=== PATIENT | male | born 1965 | race Caucasian/White ===

== ENCOUNTER 2024-01-10 01:55 | Outpatient (REF) | payer MEDICARE, SELFPAY | END 2024-01-10 01:56 | disposition home or self-care (01) | LOC: LAB 01:55 | PROVIDERS: PCP Family Medicine | DX: Z51.81 Encounter for therapeutic drug level monitoring (principal); Z79.01 Long term (current) use of anticoagulants ==

== ENCOUNTER 2024-01-10 02:55 | Outpatient (REF) | payer MEDICARE, SELFPAY ==
[2024-01-10 09:23] LABS: Anion Gap 6.9; BUN Creatinine Ratio 18.3; Calcium 8.2 mg/dL (8.5-10.1); Carbon Dioxide 37.2 mmol/L (21.0-32.0); Chloride 102 mmol/L (98-107); Estimated GFR (African America >60 (>=60); Estimated GFR (Non-African Ame >60 (>=60); Glucose 79 mg/dL (74-106); Potassium 4.1 mmol/L (3.5-5.1); Sodium 142 mmol/L (136-145)
[2024-01-10 10:17] LABS: Prothrombin Time 14.6 sec (9.0-11.6)
[2024-01-10 10:24] LABS: Basophils Absolute Auto 0.1 10^3/uL (0.0-0.1); Basophils Percent Auto 1.1 % (0.2-2.0); Eosinophils Absolute Auto 0.5 10^3/uL (0.0-0.7); Eosinophils Percent Auto 5.5 % (0.9-7.0); Hematocrit 36.5 % (42.0-54.0); Hemoglobin 11.1 g/dL (14.0-18.0); Immature Granulocytes Pct Auto 1.1 % (0.0-0.5); Lymphocytes Absolute Auto 0.8 10^3/uL (1.2-3.8); Lymphocytes Percent Auto 9.5 % (20.5-60.0); Mean Corpuscular HGB Conc 30.4 g/dL (29.9-35.2); Mean Corpuscular Hemoglobin 30.7 pg (25.9-34.0); Mean Corpuscular Volume 100.8 fL (80.0-94.0); Mean Platelet Volume 9.9 fL (9.5-13.5); Monocytes Absolute Auto 0.9 10^3/uL (0.3-0.8); Monocytes Percent Auto 9.9 % (1.7-12.0); Neutrophils Absolute Auto 6.3 10^3/uL (1.4-6.5); Neutrophils Percent Auto 72.9 % (43.0-75.0); Platelet Count 322 10^3/uL (150-450); Red Blood Count 3.62 10^6/uL (4.70-6.10); White Blood Count 8.7 10^3/uL (4.0-11.0)
== END 2024-01-10 02:56 | disposition home or self-care (01) ==
LOC: LAB 02:55
PROVIDERS: PCP Family Medicine; Visit Provider Family Medicine
DX: I48.91 Unspecified atrial fibrillation (principal); L03.90 Cellulitis, unspecified; E11.8 Type 2 diabetes mellitus with unspecified complications
CPT/HCPCS: 36415; 80048; 85025; 85610

== ENCOUNTER 2024-01-15 00:41 | Outpatient (REF) | payer MEDICARE, SELFPAY ==
--- OUTSIDE RECORDS SUMMARY | 2024-01-15 00:46 | XMS_ITS | CCD ---
Author Name Unknown Address [address] [place] [address] Organization [facility] Care Team Providers Care Fluxer Name Role Phone PHYSICIAN, DEFAULT Unavailable Unavailable PHYSICIAN, DEFAULT Unavailable Unavailable HOUSE, ERIC Unavailable Unavailable PHYSICIAN, DEFAULT Unavailable Unavailable PHYSICIAN, DEFAULT Unavailable Unavailable HOUSE, ERIC Unavailable Unavailable PHYSICIAN, DEFAULT Unavailable Unavailable PHYSICIAN, DEFAULT Unavailable Unavailable HOUSE, ERIC Unavailable Unavailable MapusWilverdra Unavailable Sarah Collado Unavailable FAWWAD, KING H Admitting Unavailable FAWWAD, KING H Attending Unavailable MISC, DR GEORGE Primary Care Unavailable FAWWAD, KING H Admitting Unavailable FAWWAD, KING H Attending Unavailable MISC, DR GEORGE Primary Care Unavailable FAWWAD, KING H Admitting Unavailable FAWWAD, KING H Attending Unavailable MISC, DR GEORGE Primary Care Unavailable FAWWAD, KING H Admitting Unavailable FAWWAD, KING H Attending Unavailable MISC, DR GEORGE Primary Care Unavailable FAWWAD, KING H Admitting Unavailable FAWWAD, KING H Attending Unavailable MISC, DR GEORGE Primary Care Unavailable FAWWAD, KING H Admitting Unavailable FAWWAD, KING H Attending Unavailable MISC, DR GEORGE Primary Care Unavailable PAUL GONZALEZ Admitting Unavailable PAUL GONZALEZ Attending Unavailable MISC, DR GEORGE Primary Care Unavailable FAWWAD, KING H Admitting Unavailable FAWWAD, KING H Attending Unavailable MISC, DR GEORGE Primary Care Unavailable FAWWAD, KING H Admitting Unavailable FAWWAD, KING H Attending Unavailable MISC, DR GEORGE Primary Care Unavailable ANNALISA DYE Admitting Unavailable MARNIEANNALISA Galvez Attending Unavailable MISC, DR GEORGE Primary Care Unavailable MARNIE, ANNALISA Consulting Unavailable FAWWAD, KING H Admitting Unavailable FAWWAD, KING H Attending Unavailable MISC, DR GEORGE Primary Care Unavailable FAWWAD, KING H Admitting Unavailable FAWWAD, KING H Attending Unavailable MISC, DR GEORGE Primary Care Unavailable FAWWAD, KING H Admitting Unavailable FAWWAD, KING H Attending Unavailable MISC, DR GEORGE Primary Care Unavailable Mapus, Tondra K Attending Unavailable Mapus, Tondra K Admitting Unavailable Rumschlag, Sydney Primary Care Unavailable KENDY VILLALPANDO Attending Unavailable VISHNU CASTANEDA Attending Unavailable Rumschlag DO, Sydney K Primary Care Provider Rumschlag DO, Sydney K Primary Care Provider SERVICE, CIELO Referring Unavailable RUMSCHLAG, SYDNEY K Primary Care Unavailable SERVICE, CIELO Referring Unavailable RUMSCHLAG, SYDNEY K Primary Care Unavailable RUMSCHLAG, SYDNEY K Primary Care Unavailable SEDRICK GREGORY Attending Unavailable WINSTON, MAT U Admitting Unavailable ONLY), [facility] (INPATIENT Consult ing Unavailable BRYN PARRA Consulting Unavailable REBEKA HERNANDEZ Consulting Unavailable SEDRICK GREGORY Attending Unavailable SEDRICK GREGORY Referring Unavailable RUMSCHLAG, SYDNEY K Primary Care Unavailable SERVICE, JOBSRaquel Referring Unavailable RUMSCHLAG, SYDNEY K Primary Care Unavailable SUSANNE PERDOMO Attending Unavailable SUSANNE PERDOMO Referring Unavailable RUMSCHLAG, SYDNEY K Primary Care Unavailable CON GARCIA Attending Unavailable CON GARCIA Referring Unavailable RUMSCHLAG, SYDNEY K Primary Care Unavailable Rumschlag DO, Sydney K Primary Care Provider [phone] FRANCHESKA FELIPE Admitting Unavailable FRANCHESKA FELIPE Attending Unavailable DAVIS, MAT U Referring Unavailable RUMSCHLAG, SYDNEY K Primary Care Unavailable ONLY), [facility] (INPATIENT Consult ing Unavailable [facility], [facility] Consult[facility] CARLOS Sher Consulting Unavailable DIVISION OF INFECTIOUS DISEASE, [facility] Consulting Unavailable CARDIOLOGY, [facility] Consulting Unavailable HARDEEP KIRAN Consulting Unavailable MAT DAVIS Referring Unavailable RUMSCHLAG, SYDNEY K Primary Care Unavailable LASHAUN GOLDSMITH Referring Unavailable RUMSCHLAG, SYDNEY K Primary Care Unavailable REBEKA FERRARI Attending Unavailable RUMSCHLAG, SYDNEY K Primary Care Unavailable RUMSCHLAG, SYDNEY K Referring Unavailable RUMSCHLAG, SYDNEY K Primary Care Unavailable RUMSCHLAG, SYDNEY K Referring Unavailable RUMSCHLAG, SYDNEY K Primary Care Unavailable RUMSCHLAG, SYDNEY K Referring Unavailable RUMSCHLAG, SYDNEY K Primary Care Unavailable RUMSCHLAG, SYDNEY K Referring Unavailable RUMSCHLAG, SYDNEY K Primary Care Unavailable RUMSCHLAG, SYDNEY K Referring Unavailable RUMSCHLAG, SYDNEY K Primary Care Unavailable RUMSCHLAG, SYDNEY K Referring Unavailable RUMSCHLAG, SYDNEY K Primary Care Unavailable JIE ALEXANDRE Referring Unavailable RUMSCHLAG, SYDNEY K Primary Care Unavailable FRANCHESKA FELIPE Referring Unavailable RUMSCHLAG, SYDNEY K Primary Care Unavailable Allergies Allergy Classification Reported Allergen(s) Allergy Type Date of Onset Reaction(s) Facility (6 sources) albuterol; Translations: [ALBUTEROL] Drug Allergy 4 [facility] Repository (2 sources) cephalexin Drug Allergy 3 [facility] Rep[facility] (2 sources) ciprofloxacin Drug Allergy 3 [facility] Repository (9 sources) Shellfish; Translations: [SHELLFISH DERIVED] Drug allergy (disorder) 4 Other (See Comments) [facility] Repository (12 sources) Albuterol Drug Allergy [facility] (16 sources) Cephalexin; Translations: [CEPHALEXIN] Drug Allergy 4 [facility] Repository (16 sources) Ciprofloxacin; Translations: [CIPROFLOXACIN] Drug Allergy 4 [facility] Repository (1 source) Shellfish Drug allergy (disorder) 4 [facility] Repository (1 source) Albuterol Drug Allergy 0 [facility] Repository (1 source) Cephalexin Drug Allergy 0 [facility] Repository (1 source) Ciprofloxacin Drug Allergy 0 [facility] Repository (3 sources) Ampicillin / Sulbactam; Translations: [AMPICILLIN-SULBA CTAM] Drug Allergy 4 Rash [facility] (3 sources) Magnesium Sulfate; Translations: [MAGNESIUM SULFATE] Drug Allergy 4 pain [facility] (3 sources) Penicillins; Translations: [PENICILLINS] Propensity to adverse reactions to drug 4 Rash [facility] Work Phone: Medications Current Medications Medication Drug Class(es) Dates Sig (Normalized) Sig (Original) acetaminophen 325 mg oral tablet (1 source) Start: 12-25-2023 take 650 mg by mouth every four hours as needed for fever and pain and headache 650 mg, oral, Every 4 hours PRN, temperature greater than 38 C, mild pain - pain scale 1-3, headaches, Starting on Sat12/25/23 at 2327, [Warning: Total Acetaminophen not to exceed more than 4 grams (4000 mg) in 24 hours] aluminum hydroxide 40 mg/ml / magnesium hydroxide 40 mg/ml / simethicone 4 mg/ml oral suspension (1 source) Start: 12-25-2023 take 30 mL by mouth four times daily at bedtime as needed 30 mL, oral, 4 times daily after meals and at bedtime as needed, dyspepsia, Starting on Sat12/25/23 at 2327, Look-alike/sound-a like medication - verify indication for use. Shake well., Indications: dyspepsia amitriptyline hydrochloride 50 mg oral tablet (1 source) Tricyclic Antidepressant take 1 tablet by mouth every twenty-four hours Amitriptyline HCl 50 MG 1 tablet at bedtime Orally Once a day Active aspirin 81 mg delayed release oral tablet (13 sources) Platelet Aggregation Inhibitor, Nonsteroidal Anti-inflammatory Drug take 1 tablet by mouth in the morning aspirin 81 mg Take 1 tablet (81 mg total) by mouth in the morning. 0 Active take 1 tablet by mouth once francisco y take 1 tablet by mouth once francisco y Aspirin 81 81 MG 1 tablet Orally Once a day Active atorvastatin 80 mg oral tablet (14 sources) HMG-CoA Reductase Inhibitor Start: 12-26-2023 take 80 mg by mouth once daily 80 mg, oral, Daily, First dose on Sat12/26/23 at 2200, Look-alike/sound-alike medication - verify indication for use. augmented betamethasone 0.5 mg/ml topical cream (4 sources) Corticosteroid Start: 01-07-2024 betamethasone, augmented, (DIPROLENE) 0.05 % cream Apply 1 Application topically in the morning and 1 Application before bedtime. 0 01/07/2024 Active Start: 01-07-2024 Start: 12-31-2023 1 Application, topical, 2 times daily, First dose on Sat12/31/23 at 2100, Apply to rash. candesartan cilexetil 16 mg oral tablet (11 sources) Angiotensin 2 Receptor Yves End: 01-08-2024 take 0.5 tablet by mouth once da reed Candesartan Cilexetil 4 MG 1/2 tablet Orally Once a day Active cetirizine hydrochloride 10 mg oral tablet (7 sources) Histamine-1 Receptor Antagonist take 1 tablet by mouth every twenty-four hours ZyrTEC Allergy 10 MG 1 tablet Orally Once a day Active clopidogrel 75 mg oral tablet (4 sources) P2Y12 Platelet Inhibitor End: diphenhydrAMINE hydrochloride 25 mg oral capsule (4 sources) Histamine-1 Receptor Antagonist Start: take 1 capsule by mouth every six hours as needed diphenhydrAMINE (BENADRYL) 25 mg capsule Take 1 capsule (25 mg total) by mouth every 6 (six) hours as needed for itching. 0 01/07/2024 Active docusate sodium 50 mg / sennosides, senior living 8.6 mg oral tablet (4 sources) Start: take 1 tablet by mouth once as needed sennosides-docusate sodium (SENOKOT-S) 8.6-50 mg Take 1 tablet by mouth every 12 (twelve) hours as needed for constipation. 0 01/07/2024 Active Start: 01-07-2024 Start: 12-25-2023 take 1 tablet by veronique th every twelve hours as needed for constipation 1 tablet, oral, Every 12 hours PRN, constipation, Starting on Sat12/25/23 at 2327 DULoxetine 60 mg delayed release oral capsule (4 sources) Serotonin and Norepinephrine Reuptake Inhibitor Start: 01-08-2024 take 1 capsule by mouth in the morning DULoxetine (CYMBALTA) 60 mg capsule Take 1 capsule (60 mg total) by mouth in the morning. 0 01/08/2024 Active Start: 01-08-2024 Start: 12-29-2023 take 1 capsule by mo uth once daily 60 mg, oral, Daily, First dose on Sat12/29/23 at 0900, Look-alike/sound-alike medication - verify indication for use. Swallow whole-do not crush or chew. Although the vp revenue cycle does not recommend opening the capsule to facilitate administration, the contents of capsule may be sprinkled on applesauce or in apple juice and swallowed (without chewing) immediately; do not sprinkle contents on chocolate pudding. FreeStyle Elizabeth 2 Sensor Sys tm - (7 sources) Start: 08-28-2021 Start: 08-28-2021 FreeStyle Libr e 2 Sensor Systm - as directed use with elizabeth reader change q 14 days, check glucose ac, hs and prn for 28 days Aug, Active FreeStyle Elizabeth 2 Sensor Systm - as directed use with elizabeth reader change q 14 days, check glucose ac, hs and prn for 28 days Active furosemide 40 mg oral tablet (16 sources) Loop Diuretic Start: 01-08-2024 take 1 tablet by mouth once daily furosemide (LASIX) 40 mg tablet Take 1 tablet (40 mg total) by mouth daily. 0 01/08/2024 Active Start: 01-08-2024 Start: 01-08-2024 take 40 mg by mouth once daily 40 mg, oral, Daily, First dose on Sat01/08/24 at 0900, Look-alike/sound-alike medication - verify indication for use. Start: 01-07-2024 End: 01-07-2024 40 mg, intravenous, Once, On Sat01/07/24 at 1400, For 1 dose, Look-alike/sound-alike medication - verify indication for use. IVP rate = 20 mg/min Start: 12-28-2023 End: 01-01-2024 20 mg, intravenous, Every 24 hours scheduled, First dose on Sat12/28/23 at 0900, Hold for SBP below 100 Look-alike/sound-alike medication - verify indication for use. IVP rate = 20 mg/min Start: 12-26-2023 End: 01-08-2024 take 20 mg by mouth every other day 20 mg, oral, Every other day, First dose on [place] 12/26/23 at 2100, Look-alike/sound-alike medication - verify indication for use. take 1 tablet by veronique th every twenty-four hours Furosemide 20 MG 1 tablet Orally Once a day Active gabapentin 100 mg oral capsule (11 sources) Anti-epileptic Agent Start: 01-07-2024 take 2 capsules by mouth three times daily gabapentin (NEURONTIN) 100 mg capsule Indications: Acute post-operative pain Take 2 capsules (200 mg total) by mouth 3 (three) times a day. 0 01/07/2024 Active Start: 12-28-2023 take 1 capsule by mo ohh every twelve hours Gabapentin 300 MG 1 capsule Orally bid Not-Taking glucagon (rdna) 1 mg injection (1 source) Antihypoglycemic Agent Start: 12-25-2023 1 mg, i ntramuscular, As needed, low blood sugar, blood glucose less than 70 mg/dL and unconscious or NPO without IV access., Starting on Sat12/25/23 at 2327, If conscious and not NPO, immediately follow with meal tray or high protein (7Grams) snack if tray not available. If NPO, initiate IV 5% Dextrose/Water at 100 mL/hr and contact prescriber for additional orders. If blood glucose is not greater than 70 mg/dL after initial treatment, repeat treatment. 50 ml glucose 500 mg/ml prefilled syringe (2 sources) Start: 12-25-2023 15 g, oral, As needed, low blood sugar, blood glucose less than 70 mg/dL, Starting on Sat12/25/23 at 2327, If patient conscious and taking PO. If blood glucose is not greater than 70 mg/dL after initial treatment, repeat treatment. Start: 12-25-2023 25 mL, intrave nous, As needed, low blood sugar, blood glucose less than 70 mg/dL and unconscious or NPO with IV access, Starting on Sat12/25/23 at 2327, Push over 1-3 minutes STAT. If conscious and not NPO, immediately follow with meal tray or high protein (7 grams) snack if tray not available. If NPO, initiate 5% dextrose in water at 100 mL/hr and contact prescriber for additional orders. If blood glucose is not greater than 70 mg/dL after initial treatment, repeat treatment. VESICANT (RED) Warning: HYPERTONIC solution. glyBURIDE 2.5 mg oral tablet (5 sources) Sulfonylurea Start: 12-27-2023 2.5 mg, oral, Daily with breakfast, First dose on Sat12/27/23 at 0800, Hold dose and notify prescriber if blood glucose is less than 100 mg/dL or patient status has changed to NPO. Look-alike/sound-alike medication - verify indication for use. May alter blood glucose or insulin requirements. hydroCHLOROthiazide 25 mg oral tablet (11 sources) Thiazide Diuretic End: 01-08-2024 take 1 capsule by [facility] every twenty-four hours hydroCHLOROthiazide 12.5 MG 1 capsule in the morning Orally Once a day Active 1 ml HYDROmorphone hydrochloride 1 mg/ml injection (2 sources) Opioid Agonist Start: 12-28-2023 take 1 mg intravenously every three hours as needed 1 mg, intravenous, Every 3 hours PRN, Breakthrough, Starting on Sat12/28/23 at 0606, If IV push, administer over over 2 to 3 minutes. Look-alike/sound-alike medication - verify indication for use. Start: 12-27-2023 End: 12-28-2023 0.4 mg, intravenous, Every 5 min PRN, for Pain Scale 6-10 if pain not controlled by fentanyl, Starting on Sat12/27/23 at 1905, PACU (only), Up to a maximum of 1.2 mg Look-alike/sound-alike medication - verify indication for use. 3 ml insulin aspart, human 1 00 unt/ml pen injector (7 sources) Insulin Analog Start: 08-28-2021 3 ml insulin detemir 100 unt /ml pen injector (7 sources) Insulin Analog Start: 08-28-2021 insulin glargine 100 unt/ml injectable solution (5 sources) Insulin Analog End: 01-08-2024 Lantus SoloStar 100 UNIT/ML 40 units Subcutaneous hs Active 3 ml insulin lispro 100 unt/ml pen injector (13 sources) Insulin Analog Start: 12-26-2023 insulin lispro (HumaLOG) 100 unit/mL insulin pen Inject 2-10 Units under the skin in the morning and 2-10 Units at noon and 2-10 Units in the evening. Inject with meals. 0 01/07/2024 Active Start: 12-25-2023 inject 2-8 [IU] by s ubcutaneous injection once daily insulin lispro (HumaLOG) 100 unit/mL insulin pen Inject 2-8 Units under the skin nightly. 0 01/07/2024 Active Start: 09-07-2021 HumaLOG KwikPe n 100 UNIT/ML Use 1:50 corrective Scale Subcutaneous AC TID E11.65 14 Aug, 2021 Active 24 hr isosorbide mononitrate 30 mg extended release oral tablet (16 sources) Nitrate Vasodilator Start: 01-02-2024 take 1 tablet by mouth once daily isosorbide mononitrate (IMDUR) 30 mg 24 hr tablet Take 1 tablet (30 mg total) by mouth daily. 0 01/07/2024 Active Start: 12-26-2023 End: 01-08-2024 take 60 mg by mouth once daily 60 mg, oral, Daily, Fir st dose on T[place] 12/26/23 at 1999, Do not crush or chew. magnesium oxide 400 mg oral tablet (4 sources) Start: 12-26-2023 magnesium oxid e (MAGOX) 400 mg tablet Take 1 tablet (400 mg total) by mouth daily as needed (Magnesium under 1.8). 0 01/07/2024 Active metFORMIN hydrochloride 500 mg oral tablet (13 sources) Biguanide take 2 tablets by mouth in the morning, then take 2 tablets by mouth at mealtime metFORMIN (GLUCOPHAGE) 500 mg tablet Take 2 tablets (1,000 mg total) by mouth in the morning and 2 tablets (1,000 mg total) in the evening. Take with meals. 0 Active take 1 tablet by veronique th every twelve hours metFORMIN HCl 1000 MG 1 tablet with a me al Orally bid Active metoprolol tartrate 100 mg oral tablet (4 sources) beta-Adrenergic Yves Start: 12-28-2023 take 1 tablet by mouth in the morning, then take 1 tablet by mouth at bedtime metoprolol tartrate (LOPRESSOR) 100 mg tablet Take 1 tablet (100 mg total) by mouth in the morning and 1 tablet (100 mg total) before bedtime. 0 01/07/2024 Active midodrine hydrochloride 5 mg oral tablet (6 sources) alpha-Adrenergic Agonist Start: 01-07-2024 take 3 tablets by mouth three times daily midodrine (PROAMATINE) 5 mg tablet Take 3 tablets (15 mg total) by mouth 3 (three) times a day. 0 01/07/2024 Active Start: 01-07-2024 Start: 01-02-2024 End: 01-03-2024 take 5 mg by mouth three times daily 5 mg, oral, 3 times daily, First dose (after last modification) on [place] 01/02/24 at 1430, Hold for systolic greater than 130, heart rate less than 55 Look-alike/sound-alike medication - verify indication for use. Start: 01-01-2024 End: 01-06-2024 10 mg, oral, 3 times daily, First dose (after last modification) on Sat01/03/24 at 1400, Hold for systolic greater than 130, heart rate less than 55 Look-alike/sound-alike medication - verify indication for use. nitroglycerin 0.4 mg sublingual tablet (7 sources) Nitrate Vasodilator Nitrostat 0. 4 MG as directed Sublingual Active ondansetron 4 mg disintegrating oral tablet (4 sources) Serotonin-3 Receptor Antagonist Start: 12-25-19 take 1 tablet by mouth every six hours as needed for nausea and vomiting ondansetron ODT (ZOFRAN ODT) 4 mg disintegrating tablet Dissolve 1 tablet (4 mg total) on tongue every 6 (six) hours as needed for nausea or vomiting. 0 01/07/2024 Active One Daily 50 Plus - (7 sources) One Daily 50 Plu s - as directed Orally Active oxyCODONE hydrochloride 5 mg oral tablet (4 sources) Opioid Agonist Start: 01-07-2024 End: 01-10-2024 take 1 tablet by mouth every six hours as needed for pain oxyCODONE (ROXICODONE) 5 mg immediate release tablet Indications: Acute post-operative pain Take 1 tablet (5 mg total) by mouth every 6 (six) hours as needed for pain for up to 3 days. Max Daily Amount: 20 mg 12 tablet 0 01/07/2024 01/10/2024 Active pantoprazole 40 mg delayed release oral tablet (4 sources) Proton Pump Inhibitor Start: 01-08-2024 take 1 tablet by mouth once daily before breakfast pantoprazole (PROTONIX) 40 mg EC tablet Take 1 tablet (40 mg total) by mouth every morning before breakfast. 0 01/08/2024 Active Start: 01-08-2024 Start: 12-26-2023 40 mg, oral, E very morning before breakfast, First dose on [place] 12/26/23 at 0700, Look-alike/sound-alike medication - verify indication for use. If patient is receiving enteral feeding, consider alternative PPI or continue IV pantoprazole until the delayed-release tablet can be taken orally, Indication: GERD 0.25 mg, 0.5 mg dose 1.5 ml semaglutide 1.34 mg/ml pen injector (7 sources) Start: 08-28-2021 warfarin sodium 5 mg oral tablet (20 sources) Vitamin K Antagonist Start: 01-07-2024 warfarin (COUMADIN) 5 mg tablet Take 5mg 01/08/2024 0 01/07/2024 Active Start: 01-07-2024 Start: 01-05-2024 5 mg, oral, Da reed, First dose (after last modification) on [place] 01/05/24 at 1600, Food-Drug Interaction Education Required Look-alike/sound-alike medication - verify indication for use Avoid intake of foods with large amounts of vitamin K Enteral Feeding: If patient is on tube feedings, avoid formulas containing soy protein Transition to oral diet may require decrease in warfarin dose, Target INR: 2 - 3, Hold warfarin & notify prescriber if INR greater than: 3 Start: 01-02-2024 End: 01-05-2024 3 mg, oral, Daily, First dos e (after last modification) on [place] 01/02/24 at 1600, Food-Drug Interaction Education Required Look-alike/sound-alike medication - verify indication for use Avoid intake of foods with large amounts of vitamin K Enteral Feeding: If patient is on tube feedings, avoid formulas containing soy protein Transition to oral diet may require decrease in warfarin dose, Target INR: 2 - 3, Hold warfarin & notify prescriber if INR greater than: 3 Start: 12-26-2023 End: 01-02-2024 5 mg, oral, Daily, First dos e (after last modification) on Sat01/01/24 at 1600, Food-Drug Interaction Education Required Look-alike/sound-alike medication - verify indication for use Avoid intake of foods with large amounts of vitamin K Enteral Feeding: If patient is on tube feedings, avoid formulas containing soy protein Transition to oral diet may require decrease in warfarin dose, Target INR: 2 - 3, Hold warfarin & notify prescriber if INR greater than: 3 Start: 12-16-2023 End: 01-08-2024 Start: 09-13-2022 End: 12-16-2023 take 1-1.5 tablets by mouth in the evening warfarin (COUMADIN) 5 mg tablet Indications: Atrial fibrillation, unspecified type (CMS-HCC) Take 1-1.5 tablets (5-7.5 mg total) by mouth in the evening. as directed by Cielo DOSS (Medication Therapy Management). 135 tablet 1 12/16/2023 Suspended Warfarin 5mg 5 m g as directed orally Active (4 sources) Start: 01-06-2024 15 mg, oral, 3 times daily, First dose (after last modification) on Sat01/06/24 at 2200, Hold for systolic greater than 130, heart rate less than 55 Look-alike/sound-alike medication - verify indication for use. Start: 12-28-2023 take 5 mg by mouth e very four hours as needed for pain [Order 1 Start] Name: oxyCODONE (ROXICODONE) immediate release tablet 5 mg Signed Summary: 5 mg, oral, Every 4 hours PRN, moderate pain - pain scale 4-6, Starting on 12/28/23 at 0606, Look-alike/sound-alike medication - verify indication for use. Immediate release. [Order 1 End] [Order 2 Start] Name: oxyCODONE (ROXICODONE) immediate release tablet 10 mg Signed Summary: 10 mg, oral, Every 4 hours PRN, severe pain - pain scale 7-10, Starting on 12/28/23 at 0606, Look-alike/sound-alike medication - verify indication for use. Immediate release. [Order 2 End] Start: 12-27-2023 End: 12-31-2023 take 3000 mg intravenously every six hours 3,000 mg, intravenous, at 200 mL/hr, Administer over 30 Minutes, Every 6 hours, First dose on Sat12/27/23 at 1600, ADD-VANTAGE/MBP- Discard 8 hours after activating; dissolve drug prior to administration., Indication: Skin and soft tissue infection Start: 12-25-2023 [Order 1 Start ] Name: potassium chloride (K-TAB,KLOR-CON) CR tablet 20-40 mEq Signed Summary: 20-40 mEq, oral, As needed, potassium supplementation, Starting on Sat12/25/23 at 2327, Progress to oral potassium replacement when patient tolerating oral intake. If dose administered, recheck potassium level 4 hours after last dose. For potassium level 3.4 to 3.8 mmol/L and GFR less than 30 mL/min or dialysis=20 mEq. For potassium level 3.1 to 3.3 mmol/L and GFR less than 30 mL/min or dialysis=30 mEq. For potassium level 3 mmol/L or less and GFR less than 30 mL/min or dialysis=40 mEq. Do not crush or chew. [Order 1 End] [Order 2 Start] Name: potassium chloride (KAYCIEL) 20 mEq/15 mL solution 20-40 mEq Signed Summary: 20-40 mEq, oral, As needed, potassium supplementation, Starting on Sat12/25/23 at 2327, Progress to oral potassium replacement when patient tolerating oral intake. If dose administered, recheck potassium level 4 hours after last dose. For potassium level 3.4 to 3.8 mmol/L and GFR less than 30 mL/min or dialysis=20 mEq. For potassium level 3.1 to 3.3 mmol/L and GFR less than 30 mL/min or dialysis=30 mEq. For potassium level 3 mmol/L or less and GFR less than 30 mL/min or dialysis=40 mEq. Must dilute before use - Mix in 3-8 ounces of water or juice before administration When administering in feeding tube, flush before and after per policy and monitor potassium levels [Order 2 End] Completed/Discontinued Medications Medication Drug Class(es) Dates Sig (Normalized) Sig (Original) acetaminophen 325 mg / HYDROcodone bitartrate 5 mg oral tablet (1 source) Opioid Agonist Start: 12-25-2023 End: 12-26-2023 2 tablet, oral, Every 6 hours PRN, severe pain - pain scale 7-10, Starting on Sat12/25/23 at 2345, Look-alike/sound-mirella e medication - verify indication for use. 20 ml albumin human, senior living 250 mg/ml injection (2 sources) Human Serum Albumin Start: 01-01-2024 End: 01-01-2024 25 g, intravenous, Once, On Sat01/01/24 at 1015, For 1 dose, Do not exceed 1 mL/minute in patients with normal plasma volume; 2 to 3 mL/minute in patients with hypoproteinemia For BUMINATE, administer using a 15 micron or smaller filter. A filter is NOT required for administration by other brands., Indication: Other, Indication: hypotension Start: 12-28-2023 End: 12-28-2023 25 g, intravenous, Once, On 12/28/23 at 0845, For 1 dose, Do not exceed 1 mL/minute in patients with normal plasma volume; 2 to 3 mL/minute in patients with hypoproteinemia For BUMINATE, administer using a 15 micron or smaller filter. A filter is NOT required for administration by other brands., Indication: Other, Indication: Hypovolemia calcium chloride 0.0014 meq/ml / potassium chloride 0.004 meq/ml / sodium chloride 0.103 meq/ml / sodium lactate 0.028 meq/ml injectable solution (1 source) Start: 12-27-2023 End: 12-28-2023 take 2 mL intravenously every hour 50 mL/hr, intravenous, Continuous, Starting on Sat12/27/23 at 1745, Pre-op, If fluid restriction is not indicated, infuse at a rate up to 5 mL/kg/hr not to exceed the total replacement volume (2 ml/kg/hr) from the time NPO status was initiated. carvedilol 25 mg oral tablet (12 sources) alpha-Adrenerg ic Yves, beta-Adrenergi c Yves Start: 12-26-2023 End: 12-28-2023 25 mg, oral, 2 times daily with meals, First dose on Tatum 12/26/23 at 1830, Hold for sbp < 110 Give with meal or snack. Look-alike/sound-a like medication - verify indication for use. End: 01-08-2024 take 1 tablet by veronique th every twelve hours Carvedilol 25 MG 1 tablet with food Orally Twice a day Active 1 ml fentaNYL 0.05 mg/ml injection (1 source) Opioid Agonist Start: 12-27-2023 End: 12-29-2023 50 mcg, intravenous, Every 5 min PRN, Pain Scale 6-10, Starting on Sat12/27/23 at 1905, PACU (only), Up to a maximum dose of 150 mcg. Look-alike/sound-alike medication - verify indication for use. fluticasone propionate 0.05 mg/actuat metered dose nasal spray (1 source) Corticosteroid Start: 12-30-2023 End: 01-06-2024 2 spray, each nare, Daily, First dose on Sat12/30/23 at 1245, Do not administer within 1 hour of oxymetazoline (AFRIN) Look-alike/sound-alike medication - verify indication for use.Shake product prior to use. sodium hypochlorite 1.25 mg/ml topical solution (1 source) Start: 12-26-2023 End: 01-06-2024 1 Application, topical, 2 times daily, First dose on Sat12/26/23 at 0015 microencapsulated potassium chloride 20 meq extended release oral tablet (7 sources) take 1 tablet by mouth every twenty-fou r hours Potassium Chloride Vikki ER 20 MEQ 1 tablet with food Orally Once a day Not-Taking 1000 ml sodium chloride 9 mg/ml injection (7 sources) Start: 01-02-2024 End: 01-03-2024 1,000 mL, intravenous, at 500 mL/hr, Administer over 2 Hours, Once, On Sat01/03/24 at 1345, For 1 dose Start: 12-25-2023 End: 12-29-2023 3 mL, intravenous, Every 12 hours scheduled, First dose on Sat12/27/23 at 2100, Pre-op Start: 12-25-2023 3 mL, intraven ous, As needed, line care, before and after each intermittent use, Starting on Sat12/25/23 at 2327 Start: 12-25-2023 End: 01-04-2024 take 75 mL intravenously every hour 75 mL/hr, intravenous, Continuous, Starting on 2/9/24 at 0900, For 24 hours spironolactone 25 mg oral tablet (7 sources) Aldosterone Antagonist Spironolactone 25 MG 1 tablet Orally Not-Taking vitamin e 180 mg oral capsule (1 source) Start: 12-30-19 End: 01-06-20 take 1 capsule by mouth twice daily 400 Units, oral, 2 times daily, First dose on Sat12/30/23 at 0800, Swallow capsules whole; do not crush or chew. (1 source) Start: 12-26-19 End: 12-27-19 1,750 mg (rounded from 1,660.5 mg = 15 mg/kg 110.7 kg), intravenous, at 268 mL/hr, Administer over 120 Minutes, Every 12 hours, First dose on Sat12/26/23 at 1230, VESICANT (YELLOW), Indication: Uncomplicated skin and soft tissue infection Problems Active Problems Problem Classification Problem Date Documented Date Episodic/Chronic Cardiac dysrhythmias (11 sources) Unspecified atrial fibrillation; Translations: [Atrial fibrillation] Onset: 01-04-2014 12-04-2023 Chronic Chronic ulcer of skin (2 sources) Non-pressure chronic ulcer of unspecified part of unspecified lower leg with unspecified severity; Translations: [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] Onset: 12-23-2023 Chronic Congestive heart failure; nonhypertensive (10 sources) Chronic systolic (congestive) heart failure; Translations: [Diastolic heart failure] Onset: 01-24-2022 Chronic Coronary atherosclerosis and other heart disease (2 sources) Atherosclerotic heart disease of [place] coronary artery without angina pectoris; Translations: [Atherosclerotic heart disease of [place] coronary artery without angina pectoris] Onset: 06-11-2023 Chronic Diabetes mellitus with complications (20 sources) Hypoglycemia due to type 2 diabetes mellitus; Translations: [Type 2 diabetes mellitus with hypoglycemia without coma] Onset: 08-28-2021 Resolved: 02-08-2022 Chronic Diabetes mellitus without complication (2 sources) Type 2 diabetes mellitus without complications; Translations: [Type 2 diabetes mellitus without complications] Onset: 12-11-2022 Chronic Disorders of lipid metabolism (13 sources) Hyperlipidemia; Translations: [Hyperlipidemia, unspecified] Onset: 11-02-2013 Resolved: 02-08-2022 Chronic Essential hypertension (15 sources) Hypertensive disorder; Translations: [Essential (primary) hypertension] Onset: 11-02-2013 Resolved: 02-08-2022 Chronic Heart valve disorders (1 source) Nonrheumatic mitral (valve) insufficiency; Translations: [NONRHEUMATIC MITRAL INSUFFICIENCY] Onset: 01-26-2022 Chronic Nutritional deficiencies (7 sources) Vitamin D deficiency; Translations: [Vitamin D deficiency, unspecified] Chronic Open wounds of extremities (6 sources) Open wound of lower limb; Translations: [Unspecified open wound, right lower leg, subsequent encounter] Onset: 12-26-2023 01-07-2024 Episodic Other aftercare (4 sources) Encounter for therapeutic drug level monitoring; Translations: [ENC THERAPEUTC DRUG LEVL MONITORING] Onset: 10-25-2022 Episodic Other aftercare (2 sources) exterminator helper termite (current) use of anticoagulants; Translations: [SNF CURRNT USE ANTICOAGULANTS] Onset: 11-27-2022 Episodic Other aftercare (1 source) Anticoagulant effect; Translations: [half-way (current) use of anticoagulants] 01-07-2024 Episodic Other circulatory disease (1 source) Personal history of other diseases of the circulatory system; Translations: [Personal history of other diseases of the circulatory system] Onset: 12-23-2023 Episodic Other diseases of veins and lymphatics (3 sources) Lymphedema; Translations: [Lymphedema, not elsewhere classified] Onset: 12-26-2023 12-26-2023 Chronic Other diseases of veins and lymphatics (8 sources) Venous insufficiency (chronic) (peripheral); Translations: [Venous (peripheral) insufficiency, unspecified] Onset: 12-26-2023 01-07-2024 Episodic Other nervous system disorders (1 source) Acute postoperative pain; Translations: [Other acute postprocedural pain] 01-07-2024 Episodic Other nervous system disorders (1 source) Other acute postprocedural pain; Translations: [Other acute postprocedural pain] Onset: 12-26-2023 Episodic Other nutritional; endocrine; and metabolic disorders (7 sources) Obese class II; Translations: [Body mass index (BMI) 36.0-36.9, adult] Chronic Other nutritional; endocrine; and metabolic disorders (2 sources) Body mass index (BMI) 36.0-36.9, adult; Translations: [BMI 36.0-36.9,adult Z68.36] Onset: 08-28-2021 Resolved: 02-08-2022 Chronic Other screening for suspected conditions (not mental disorders or infectious disease) (2 sources) Abnormal coagulation profile; Translations: [Other specified abnormal findings of blood chemistry] Onset: 12-23-2023 Episodic Skin and subcutaneous tissue infections (9 sources) Cellulitis; Translations: [Cellulitis, unspecified] Onset: 12-23-2023 12-23-2023 Episodic Unclassified (1 source) Chronic atrial fibrillation, unspecified; Translations: [CHRONIC ATRIAL FIBRILLATION UNSPEC] Onset: 11-27-2022 Unclassified (2 sources) Permanent atrial fibrillation; Translations: [Permanent atrial fibrillation] Onset: 12-11-2022 Unclassified (1 source) Leg Injury Onset: 12-23-2023 Unclassified (1 source) EMS Onset: 12-23-2023 Unclassified (1 source) Cellulitis with non-healing wounds Onset: 12-26-2023 Past or Other Problems Problem Classification Problem Date Documented Da te Episodic/Chronic Administrative/social admission (2 sources) Dietary counseling and surveillance; Translations: [Dietary counseling and surveillance Z71.3] Onset: 08-28-2021 Resolved: 02-08-2022 Episodic Immunizations and screening for infectious disease (1 source) Encounter for immunization Onset: 10-12-2021 Resolved: 10-12-2021 Episodic Mood disorders (1 source) Mood disorders Onset: 12-26-2023 12-26-2023 Nutritional deficiencies (1 source) Deficiency of other specified B group vitamins Onset: 02-08-2022 Resolved: 02-08-2022 Episodic Other aftercare (7 sources) Long-term current use of insulin; Translations: [half-way (current) use of insulin] Episodic Other aftercare (2 sources) exterminator helper termite (current) use of insulin; Translations: [exterminator helper termite current use of insulin Z79.4] Onset: 08-28-2021 Resolved: 02-08-2022 Episodic Results Test Name Value Interpretation Reference Range Facility Glucose Glucometer (BldC) [M ass/Vol]on 01-08-2024 Glucose [Mass/Vol] 242 mg/dL High 65-99 [facility] CBC AND AUTO DIFFon 01-07-20 24 ABSOLUTE BASOPHIL 0.0 X10E9/L Normal 0.0-0.2 [facility] Comment on above: Performed By: #### C CARMEN CARMONA, , PINR #### [facility] ([id number]) [address], [address] [place] [address] ABSOLUTE NEUTROPHIL 4.5 X10E9/L Normal 1.5-6.6 [facility] Comment on above: Performed By: #### C MATHEW CMP, , PINR #### [facility] ([id number]) [address], [address] [place] [address] Basophils/100 WBC (Bld) 0.7 % Normal [facility] Comment on above: Performed By: #### C CARMEN CARMONA, , PINR #### [facility] ([id number]) [address], [address] [place] [address] Eosinophils (Bld) [#/Vol] 0.4 10*3/uL Normal 0.0-0.4 [facility] Comment on above: Performed By: #### Aquiles CARMONA [facility], , PINR #### [facility] ([id number]) [address], [address] [place] [address] Eosinophils/100 WBC (Bld) 5.9 % Normal [facility] Comment on above: Performed By: #### Aquiles CARMONA CMP, , PINR #### [facility] ([id number]) [address], [facility] [address] [place] [address] Erythrocyte distribution width (RBC) [Ratio] 16.2 % High 11.5-15.0 [facility] Comment on above: Performed By: #### C MATHEW CMP, , PINR #### [facility] ([id number]) [address], [address] [place] [address] Hematocrit (Bld) [Volume fraction] 34.7 % Low 39-49 [facility] Comment on above: Performed By: #### C CARMEN CARMONA, , PINR #### [facility] ([id number]) [address], [address] [place] [address] Hemoglobin (Bld) [Mass/Vol] 11.4 g/dL Low 13.0-17.0 [facility] Comment on above: Performed By: #### C MATHEW CMP, , PINR #### [facility] ([id number]) [address], [facility] [address] [place] [address] Lymphocytes (Bld) [#/Vol] 0.8 10*3/uL Low 1.0-3.5 [facility] Comment on above: Performed By: #### Aquiles CARMONA CMP, , PINR #### [facility] ([id number]) [address], [address] [place] [address] Lymphocytes/100 WBC (Bld) 12.4 % Normal [facility] Comment on above: Performed By: #### Aquiles CARMONA CMP, , PINR #### [facility] ([id number]) [address], [address] [place] [address] MCH (RBC) [Entitic mass] 31.3 pg Normal 27-34 [facility] Comment on above: Performed By: #### C MATHEW CMP, , PINR #### [facility] ([id number]) [address], [address] [place] [address] MCHC (RBC) [Mass/Vol] 33.0 g/dL Normal 32-36 [facility] Comment on above: Performed By: #### C BCA CMP, , PINR #### [facility] ([id number]) [address], [address] [place] [address] MCV (RBC) [Entitic vol] 95 fL Normal 80-100 [facility] Comment on above: Performed By: #### C BCA, CMP, , PINR #### [facility] ([id number]) [address], [address] [place] [address] Monocytes (Bld) [#/Vol] 0.9 10*3/uL Normal 0-0.9 [facility] Comment on above: Performed By: #### C BCA, CMP, , PINR #### [facility] ([id number]) [address], [address] [place] [address] Monocytes/100 WBC (Bld) 14.2 % Normal [facility] Comment on above: Performed By: #### Aquiles BCA, CMP, , PINR #### [facility] ([id number]) [address], [address] [place] [address] Neutrophils/100 WBC (Bld) 66.8 % Normal [facility] Comment on above: Performed By: #### Aquiles BCA, CMP, , PINR #### [facility] ([id number]) [address], [address] [place] [address] Platelet mean volume (Bld) [Entitic vol] 8.1 fL Normal 7-12 [facility] Comment on above: Performed By: #### Aquiles BCA, CMP, , PINR #### [facility] ([id number]) [address], [address] [place] [address] Platelets (Bld) [#/Vol] 286 10*3/uL Normal 150-450 [facility] Comment on above: Performed By: #### C BCA, CMP, , PINR #### [facility] ([id number]) [address], [address] [place] [address] RBC COUNT 3.65 X10E12/L Low 4.10-5.70 [facility] Comment on above: Performed By: #### C MATHEW, CMP, [id number], PINR #### [facility] ([id number]) [address], [address] [place] [address] WBC (Bld) [#/Vol] 6.7 10*3/uL Normal 4.0-11.0 [facility] Comment on above: Performed By: #### C BCA, CMP, [id number], PINR #### [facility] ([id number]) [address], [address] [place] [address] CBC auto differentialon 12-26 Basophils (Bld) [#/Vol] 0.0 10*3/uL [facility] Basophils/100 WBC (Bld) 0.7 % [facility] Eosinophils (Bld) [#/Vol] 0.4 10*3/uL [facility] Eosinophils/100 WBC (Bld) 5.9 % [facility] Erythrocyte distribution width (RBC) [Ratio] 16.2 % High 11.5 - 15.0 % [facility] Hematocrit (Bld) [Volume fraction] 34.7 % Low 39 - 49 % [facility] Hemoglobin (Bld) [Mass/Vol] 11.4 g/dL Low 13.0 - 17.0 g/dL [facility] Interpretation and review of laboratory results Abnormal [facility] Lymphocytes (Bld) [#/Vol] 0.8 10*3/uL Low [facility] Lymphocytes/100 WBC (Bld) 12.4 % [facility] MCH (RBC) [Entitic mass] 31.3 pg 27 - 34 pg [facility] MCHC (RBC) [Mass/Vol] 33.0 g/dL 32 - 36 g/dL [facility] MCV (RBC) [Entitic vol] 95 fL 80 - 100 fL [facility] Monocytes (Bld) [#/Vol] 0.9 10*3/uL [facility] Monocytes/100 WBC (Bld) 14.2 % [facility] Neutrophils (Bld) [#/Vol] 4.5 10*3/uL [facility] Neutrophils/100 WBC (Bld) 66.8 % [facility] Platelet mean volume (Bld) [Entitic vol] 8.1 fL 7 - 12 fL [facility] Platelets (Bld) [#/Vol] 286 10*3/uL [facility] RBC (Bld) [#/Vol] 3.65 10*6/uL Low [facility] WBC corrected for nucl RBC Auto (Bld) [#/Vol] 6.7 [facility] COMPREHENSIVE METABOLIC PANE Roberto 01-07-2024 Albumin [Mass/Vol] 2.1 g/dL Low 3.2-5.3 [facility] Comment on above: Performed By: #### C CARMEN CARMONA, , PINR #### [facility] ([id number]) [address], [address] [place] [address] ALP [Catalytic activity/Vol] 289 U/L High 39-130 [facility] Comment on above: Performed By: #### C MATHEW CMP, , PINR #### [facility] ([id number]) [address], [address] [place] [address] ALT [Catalytic activity/Vol] 59 U/L High 0-40 [facility] Comment on above: Performed By: #### C MATHEW CMP, , PINR #### [facility] ([id number]) [address], [address] [place] [address] Anion gap [Moles/Vol] 6 mmol/L Normal 5-15 [facility] Comment on above: Performed By: #### C MATHEW CMP, , PINR #### [facility] ([id number]) [address], [address] [place] [address] AST [Catalytic activity/Vol] 54 U/L High 0-41 [facility] Comment on above: Performed By: #### C MATHEW CMP, , PINR #### [facility] ([id number]) [address], [address] [place] [address] Bilirubin [Mass/Vol] 0.9 mg/dL Normal 0.3-1.2 [facility] Comment on above: Performed By: #### C BCA, CMP, , PINR #### [facility] ([id number]) [address], [address] [place] [address] Calcium [Mass/Vol] 8.2 mg/dL Low 8.5-10.5 [facility] Comment on above: Performed By: #### C BCA, CMP, , PINR #### [facility] ([id number]) [address], [address] [place] [address] Chloride [Moles/Vol] 100 mmol/L Normal 98-109 [facility] Comment on above: Performed By: #### C BCA, CMP, , PINR #### [facility] ([id number]) [address], [address] [place] [address] CO2 [Moles/Vol] 38 mmol/L High 22-32 [facility] Comment on above: Performed By: #### C BCA, CMP, , PINR #### [facility] ([id number]) [address], [address] [place] [address] Creatinine [Mass/Vol] 0.80 mg/dL Normal 0.60-1.30 [facility] Comment on above: Result Comment: METH OD TRACEABLE TO IDMS STANDARD Performed By: #### C BCA, CMP, , PINR #### [facility] ([id number]) [address], [address] [place] [address] eGFR (CKD-EPI) NON-RACE DEPENDENT >90 Normal >59 [facility] Comment on above: Result Comment: Reported eGFR is based on the CKD-EPI 2020 equation that does not use a race coefficient. Performed By: #### C MATHEW, CMP, , PINR #### [facility] ([id number]) [address], [address] [place] [address] Glucose [Mass/Vol] 77 mg/dL Normal 65-99 [facility] Comment on above: Performed By: #### C MATHEW, CMP, , PINR #### [facility] ([id number]) [address], [address] [place] [address] Potassium [Moles/Vol] 4.3 mmol/L Normal 3.5-5.0 [facility] Comment on above: Performed By: #### C MATHEW, CMP, , PINR #### [facility] ([id number]) [address], [address] [place] [address] Protein [Mass/Vol] 5.4 g/dL Low 6.0-8.0 [facility] Comment on above: Performed By: #### C MATHEW, CMP, , PINR #### [facility] ([id number]) [address], [address] [place] [address] Sodium [Moles/Vol] 144 mmol/L Normal 134-146 [facility] Comment on above: Performed By: #### C BCA, CMP, , PINR #### [facility] ([id number]) [address], [address] [place] [address] Urea nitrogen [Mass/Vol] 22 mg/dL Normal 5-23 [facility] Comment on above: Performed By: #### C BCA, CMP, , PINR #### [facility] ([id number]) [address], [address] [place] [address] Comprehensive metabolic pane roberto 01-07-2024 Albumin [Mass/Vol] 2.1 g/dL Low 3.2 - 5.3 g/dL [facility] ALP [Catalytic activity/Vol] 289 U/L High 39 - 130 U/L [facility] ALT No additional P-5'-P [Catalytic activity/Vol] 59 U/L High 0 - 40 U/L [facility] Anion gap [Moles/Vol] 6 mmol/L 5 - 15 mmol/L [facility] AST [Catalytic activity/Vol] 54 U/L High 0 - 41 U/L [facility] Bilirubin [Mass/Vol] 0.9 mg/dL 0.3 - 1 .2 mg/dL [facility] Calcium [Mass/Vol] 8.2 mg/dL Low 8.5 - 10. 5 mg/dL [facility] Chloride [Moles/Vol] 100 mmol/L 98 - 10 9 mmol/L [facility] CO2 [Moles/Vol] 38 mmol/L High 22 - 32 mmol/L [facility] Creatinine [Mass/Vol] 0.80 mg/dL 0.60 - 1.30 mg/dL [facility] eGFR (CKD-EPI)non-race dependent - PINF [facility] Glucose [Mass/Vol] 77 mg/dL 65 - 99 mg/dL [facility] Interpretation and review of laboratory results Abnormal [facility] Potassium [Moles/Vol] 4.3 mmol/L 3.5 - 5.0 mmol/L [facility] Protein [Mass/Vol] 5.4 g/dL Low 6.0 - 8.0 g/dL [facility] Sodium [Moles/Vol] 144 mmol/L 134 - 146 mmol/L [facility] Urea nitrogen [Mass/Vol] 22 mg/dL 5 - 23 mg/dL [facility] Glucose Glucometer (BldC) [M ass/Vol]on 01-07-2024 Glucose [Mass/Vol] 242 mg/dL High 65 - 99 mg/dL [facility] Interpretation and review of laboratory results Abnormal [facility] Glucose [Mass/Vol] 72 mg/dL Normal 65-99 [facility] Glucose [Mass/Vol] 72 mg/dL 65 - 99 mg/dL [facility] MAGNESIUMon 01-07-2024 Magnesium [Mass/Vol] 1.9 mg/dL Normal 1.8-2.6 [facility] Comment on above: Performed By: #### Aquiles CARMONA CMP, , PINR #### [facility] ([id number]) [address], [address] [place] [address] Magnesiumon 01-07-2024 Magnesium [Mass/Vol] 1.9 mg/dL 1.8 - 2 .6 mg/dL [facility] No Panel Informationon 01-07 [facility] PROTIME AND INRon 01-07-2024 INR Coag (PPP) [Relative time] 1.8 {INR} High 0.8-1.1 [facility] Comment on above: Performed By: #### Aquiles CARMONA CMP, , PINR #### [facility] ([id number]) [address], [address] [place] [address] PT Coag (PPP) [Time] 20.4 s High 9.8-13.2 [facility] Comment on above: Performed By: #### Aquiles CARMONA CMP, , PINR #### [facility] ([id number]) [address], [address] [place] [address] Protime & INRon 01-07-2024 INR Coag (PPP) [Relative time] 1.8 {INR} High [facility] Interpretation and review of laboratory results Abnormal [facility] PT Coag (PPP) [Time] 20.4 s High [facility] CBC AND AUTO DIFFon 01-06-20 24 ABSOLUTE BASOPHIL 0.0 X10E9/L Normal 0.0-0.2 [facility] Comment on above: Performed By: #### Aquiles CARMONA CMP, , PINR #### [facility] ([id number]) [address], [address] [place] [address] ABSOLUTE NEUTROPHIL 4.1 X10E9/L Normal 1.5-6.6 [facility] Comment on above: Performed By: #### C MATHEW, CMP, , PINR #### [facility] ([id number]) [address], [address] [place] [address] Basophils/100 WBC (Bld) 0.6 % Normal [facility] Comment on above: Performed By: #### C BCA, CMP, , PINR #### [facility] ([id number]) [address], [address] [place] [address] Eosinophils (Bld) [#/Vol] 0.4 10*3/uL Normal 0.0-0.4 [facility] Comment on above: Performed By: #### C MATHEW, CMP, , PINR #### [facility] ([id number]) [address], [address] [place] [address] Eosinophils/100 WBC (Bld) 6.3 % Normal [facility] Comment on above: Performed By: #### C MATHEW, CMP, , PINR #### [facility] ([id number]) [address], [address] [place] [address] Erythrocyte distribution width (RBC) [Ratio] 16.3 % High 11.5-15.0 [facility] Comment on above: Performed By: #### C MATHEW, CMP, , PINR #### [facility] ([id number]) [address], [address] [place] [address] Hematocrit (Bld) [Volume fraction] 31.8 % Low 39-49 [facility] Comment on above: Performed By: #### C BCA, CMP, , PINR #### [facility] ([id number]) [address], [address] [place] [address] Hemoglobin (Bld) [Mass/Vol] 10.7 g/dL Low 13.0-17.0 [facility] Comment on above: Performed By: #### C MATHEW CMP, , PINR #### [facility] ([id number]) [address], [address] [place] [address] Lymphocytes (Bld) [#/Vol] 0.8 10*3/uL Low 1.0-3.5 [facility] Comment on above: Performed By: #### C MATHEW CMP, , PINR #### [facility] ([id number]) [address], [facility] [address] [place] [address] Lymphocytes/100 WBC (Bld) 12.3 % Normal [facility] Comment on above: Performed By: #### C MATHEW CMP, , PINR #### [facility] ([id number]) [address], [address] [place] [address] MCH (RBC) [Entitic mass] 31.2 pg Normal 27-34 [facility] Comment on above: Performed By: #### C MATHEW CMP, , PINR #### [facility] ([id number]) [address], [address] [place] [address] MCHC (RBC) [Mass/Vol] 33.5 g/dL Normal 32-36 [facility] Comment on above: Performed By: #### Aquiles CARMONA CMP, , PINR #### [facility] ([id number]) [address], [address] [place] [address] MCV (RBC) [Entitic vol] 93 fL Normal 80-100 [facility] Comment on above: Performed By: #### Aquiles CARMONA, CMP, , PINR #### [facility] ([id number]) [address], [address] [place] [address] Monocytes (Bld) [#/Vol] 0.9 10*3/uL Normal 0-0.9 [facility] Comment on above: Performed By: #### C MATHEW, CMP, , PINR #### [facility] ([id number]) [address], [address] [place] [address] Monocytes/100 WBC (Bld) 14.9 % Normal [facility] Comment on above: Performed By: #### Aquiles CARMONA, CMP, , PINR #### [facility] ([id number]) [address], [address] [place] [address] Neutrophils/100 WBC (Bld) 65.9 % Normal [facility] Comment on above: Performed By: #### C MATHEW, CMP, , PINR #### [facility] ([id number]) [address], [address] [place] [address] Platelet mean volume (Bld) [Entitic vol] 7.9 fL Normal 7-12 [facility] Comment on above: Performed By: #### C MATHEW, CMP, , PINR #### [facility] ([id number]) [address], [address] [place] [address] Platelets (Bld) [#/Vol] 249 10*3/uL Normal 150-450 [facility] Comment on above: Performed By: #### C MATHEW, CMP, , PINR #### [facility] ([id number]) [address], [address] [place] [address] RBC COUNT 3.41 X10E12/L Low 4.10-5.70 [facility] Comment on above: Performed By: #### C BCA, CMP, , PINR #### [facility] ([id number]) [address], [address] [place] [address] WBC (Bld) [#/Vol] 6.3 10*3/uL Normal 4.0-11.0 [facility] Comment on above: Performed By: #### C BCA, CMP, 26485-4, PINR #### [facility] ([id number]) [address] [place] [address] CBC auto differentialon 12-26 Basophils (Bld) [#/Vol] 0.0 10*3/uL [facility] Basophils/100 WBC (Bld) 0.6 % [facility] Eosinophils (Bld) [#/Vol] 0.4 10*3/uL [facility] Eosinophils/100 WBC (Bld) 6.3 % [facility] Erythrocyte distribution width (RBC) [Ratio] 16.3 % High 11.5 - 15.0 % [facility] Hematocrit (Bld) [Volume fraction] 31.8 % Low 39 - 49 % [facility] Hemoglobin (Bld) [Mass/Vol] 10.7 g/dL Low 13.0 - 17.0 g/dL [facility] Interpretation and review of laboratory results Abnormal [facility] Lymphocytes (Bld) [#/Vol] 0.8 10*3/uL Low [facility] Lymphocytes/100 WBC (Bld) 12.3 % [facility] MCH (RBC) [Entitic mass] 31.2 pg 27 - 34 pg [facility] MCHC (RBC) [Mass/Vol] 33.5 g/dL 32 - 36 g/dL [facility] MCV (RBC) [Entitic vol] 93 fL 80 - 100 fL [facility] Monocytes (Bld) [#/Vol] 0.9 10*3/uL [facility] Monocytes/100 WBC (Bld) 14.9 % [facility] Neutrophils (Bld) [#/Vol] 4.1 10*3/uL [facility] Neutrophils/100 WBC (Bld) 65.9 % [facility] Platelet mean volume (Bld) [Entitic vol] 7.9 fL 7 - 12 fL [facility] Platelets (Bld) [#/Vol] 249 10*3/uL [facility] RBC (Bld) [#/Vol] 3.41 10*6/uL Low [facility] WBC corrected for nucl RBC Auto (Bld) [#/Vol] 6.3 [facility] COMPREHENSIVE METABOLIC PANE Roberto 01-06-2024 Albumin [Mass/Vol] 2.1 g/dL Low 3.2-5.3 [facility] Comment on above: Performed By: #### C BCA, CMP, , PINR #### [facility] ([id number]) [address], [address] [place] [address] ALP [Catalytic activity/Vol] 288 U/L High 39-130 [facility] Comment on above: Performed By: #### C BCA, CMP, , PINR #### [facility] ([id number]) [address], [address] [place] [address] ALT [Catalytic activity/Vol] 61 U/L High 0-40 [facility] Comment on above: Performed By: #### C BCA, CMP, , PINR #### [facility] ([id number]) [address], [address] [place] [address] Anion gap [Moles/Vol] 2 mmol/L Low 5-15 [facility] Comment on above: Performed By: #### C BCA, CMP, , PINR #### [facility] ([id number]) [address], [address] [place] [address] AST [Catalytic activity/Vol] 46 U/L High 0-41 [facility] Comment on above: Performed By: #### C BCA, CMP, , PINR #### [facility] ([id number]) [address], [address] [place] [address] Bilirubin [Mass/Vol] 0.8 mg/dL Normal 0.3-1.2 [facility] Comment on above: Performed By: #### C BCA, CMP, , PINR #### [facility] ([id number]) [address], [address] [place] [address] Calcium [Mass/Vol] 8.1 mg/dL Low 8.5-10.5 [facility] Comment on above: Performed By: #### C BCA, CMP, , PINR #### [facility] ([id number]) [address], [address] [place] [address] Chloride [Moles/Vol] 102 mmol/L Normal 98-109 [facility] Comment on above: Performed By: #### C MATHEW CMP, , PINR #### [facility] ([id number]) [address], [address] [place] [address] CO2 [Moles/Vol] 38 mmol/L High 22-32 [facility] Comment on above: Performed By: #### C BCA, [facility], , PINR #### [facility] ([id number]) [address], [address] [place] [address] Creatinine [Mass/Vol] 0.71 mg/dL Normal 0.60-1.30 [facility] Comment on above: Result Comment: METH OD TRACEABLE TO IDMS STANDARD Performed By: #### C BCA, CMP, , PINR #### [facility] ([id number]) [address], [address] [place] [address] eGFR (CKD-EPI) NON-RACE DEPENDENT >90 Normal >59 [facility] Comment on above: Result Comment: Reported eGFR is based on the CKD-EPI 2020 equation that does not use a race coefficient. Performed By: #### C BCA, CMP, , PINR #### [facility] ([id number]) [address], [address] [place] [address] Glucose [Mass/Vol] 91 mg/dL Normal 65-99 [facility] Comment on above: Performed By: #### C BCA, CMP, , PINR #### [facility] ([id number]) [address], [address] [place] [address] Potassium [Moles/Vol] 4.2 mmol/L Normal 3.5-5.0 [facility] Comment on above: Performed By: #### C BCA, CMP, , PINR #### [facility] ([id number]) [address], [address] [place] [address] Protein [Mass/Vol] 4.9 g/dL Low 6.0-8.0 [facility] Comment on above: Performed By: #### C BCA, CMP, , PINR #### [facility] ([id number]) [address], [address] [place] [address] Sodium [Moles/Vol] 142 mmol/L Normal 134-146 [facility] Comment on above: Performed By: #### C BCA, CMP, , PINR #### [facility] ([id number]) [address], [address] [place] [address] Urea nitrogen [Mass/Vol] 22 mg/dL Normal 5-23 [facility] Comment on above: Performed By: #### C BCA, CMP, , PINR #### [facility] ([id number]) [address], [address] [place] [address] Comprehensive metabolic pane roberto 01-06-2024 Albumin [Mass/Vol] 2.1 g/dL Low 3.2 - 5.3 g/dL [facility] ALP [Catalytic activity/Vol] 288 U/L High 39 - 130 U/L [facility] ALT No additional P-5'-P [Catalytic activity/Vol] 61 U/L High 0 - 40 U/L [facility] Anion gap [Moles/Vol] 2 mmol/L Low 5 - 15 mmol/L [facility] AST [Catalytic activity/Vol] 46 U/L High 0 - 41 U/L [facility] Bilirubin [Mass/Vol] 0.8 mg/dL 0.3 - 1 .2 mg/dL [facility] Calcium [Mass/Vol] 8.1 mg/dL Low 8.5 - 10. 5 mg/dL [facility] Chloride [Moles/Vol] 102 mmol/L 98 - 10 9 mmol/L [facility] CO2 [Moles/Vol] 38 mmol/L High 22 - 32 mmol/L [facility] Creatinine [Mass/Vol] 0.71 mg/dL 0.60 - 1.30 mg/dL [facility] eGFR (CKD-EPI)non-race dependent - PINF [facility] Glucose [Mass/Vol] 91 mg/dL 65 - 99 mg/dL [facility] Interpretation and review of laboratory results Abnormal [facility] Potassium [Moles/Vol] 4.2 mmol/L 3.5 - 5.0 mmol/L [facility] Protein [Mass/Vol] 4.9 g/dL Low 6.0 - 8.0 g/dL [facility] Sodium [Moles/Vol] 142 mmol/L 134 - 146 mmol/L [facility] Urea nitrogen [Mass/Vol] 22 mg/dL 5 - 23 mg/dL [facility] Glucose Glucometer (BldC) [M ass/Vol]on 01-06-2024 Glucose [Mass/Vol] 126 mg/dL High 65-99 [facility] Glucose [Mass/Vol] 126 mg/dL High 65 - 99 mg/dL [facility] Interpretation and review of laboratory results Abnormal [facility] Glucose [Mass/Vol] 178 mg/dL High 65-99 [facility] Glucose [Mass/Vol] 178 mg/dL High 65 - 99 mg/dL [facility] Interpretation and review of laboratory results Abnormal [facility] Glucose [Mass/Vol] 88 mg/dL Normal 65-99 [facility] Glucose [Mass/Vol] 88 mg/dL 65 - 99 mg/dL [facility] Glucose [Mass/Vol] 80 mg/dL Normal 65-[address] [facility] MAGNESIUMon 01-06-2024 Magnesium [Mass/Vol] 1.8 mg/dL Normal 1.8-2.6 [facility] Comment on above: Performed By: #### Aquiles CARMONA CMP, , PINR #### [facility] ([id number]) [address], [address] [place] [address] Magnesiumon 01-06-2024 Magnesium [Mass/Vol] 1.8 mg/dL 1.8 - 2 .6 mg/dL [facility] No Panel Informationon 01-06 [facility] PROTIME AND INRon 01-06-2024 INR Coag (PPP) [Relative time] 2.1 {INR} High 0.8-1.1 [facility] Comment on above: Performed By: #### Aquiles CARMONA CMP, , PINR #### [facility] ([id number]) [address], [address] [place] [address] PT Coag (PPP) [Time] 23.3 s High 9.8-13.2 [facility] Comment on above: Performed By: #### Aquiles CARMONA CMP, , PINR #### [facility] ([id number]) [address], [address] [place] [address] Protime & INRon 01-06-2024 INR Coag (PPP) [Relative time] 2.1 {INR} High [facility] Interpretation and review of laboratory results Abnormal [facility] PT Coag (PPP) [Time] 23.3 s High [facility] CBC AND AUTO DIFFon 01-05-20 24 ABSOLUTE BASOPHIL 0.1 X10E9/L Normal 0.0-0.2 [facility] Comment on above: Performed By: #### Aquiles CARMONA CMP, , PINR #### [facility] ([id number]) [address], [address] [place] [address] ABSOLUTE NEUTROPHIL 5.6 X10E9/L Normal 1.5-6.6 [facility] Comment on above: Performed By: #### C MATHEW [facility], , PINR #### [facility] ([id number]) [address], [address] [place] [address] Basophils/100 WBC (Bld) 0.9 % Normal [facility] Comment on above: Performed By: #### C MATHEW, CMP, , PINR #### [facility] ([id number]) [address], [address] [place] [address] Eosinophils (Bld) [#/Vol] 0.4 10*3/uL Normal 0.0-0.4 [facility] Comment on above: Performed By: #### Aquiles CARMONA CMP, , PINR #### [facility] ([id number]) [address], [address] [place] [address] Eosinophils/100 WBC (Bld) 5.2 % Normal [facility] Comment on above: Performed By: #### C MATHEW, [facility], , PINR #### [facility] ([id number]) [address], [address] [place] [address] Erythrocyte distribution width (RBC) [Ratio] 16.2 % High 11.5-15.0 [facility] Comment on above: Performed By: #### C MATHEW, CMP, , PINR #### [facility] ([id number]) [address], [address] [place] [address] Hematocrit (Bld) [Volume fraction] 32.7 % Low 39-49 [facility] Comment on above: Performed By: #### C BCA, CMP, , PINR #### [facility] ([id number]) [address], [address] [place] [address] Hemoglobin (Bld) [Mass/Vol] 11.1 g/dL Low 13.0-17.0 [facility] Comment on above: Performed By: #### C MATHEW CMP, , PINR #### [facility] ([id number]) [address], [address] [place] [address] Lymphocytes (Bld) [#/Vol] 0.6 10*3/uL Low 1.0-3.5 [facility] Comment on above: Performed By: #### C MATHEW, CMP, , PINR #### [facility] ([id number]) [address], [facility] [address] [place] [address] Lymphocytes/100 WBC (Bld) 8.2 % Normal [facility] Comment on above: Performed By: #### Aquiles CARMONA, CMP, , PINR #### [facility] ([id number]) [address], [address] [place] [address] MCH (RBC) [Entitic mass] 31.7 pg Normal 27-34 [facility] Comment on above: Performed By: #### Aquiles CARMONA, CMP, , PINR #### [facility] ([id number]) [address], [address] [place] [address] MCHC (RBC) [Mass/Vol] 33.8 g/dL Normal 32-36 [facility] Comment on above: Performed By: #### C BCA, CMP, , PINR #### [facility] ([id number]) [address], [address] [place] [address] MCV (RBC) [Entitic vol] 94 fL Normal 80-100 [facility] Comment on above: Performed By: #### Aquiles BCA, CMP, , PINR #### [facility] ([id number]) [address], [address] [place] [address] Monocytes (Bld) [#/Vol] 0.9 10*3/uL Normal 0-0.9 [facility] Comment on above: Performed By: #### C MATHEW, CMP, , PINR #### [facility] ([id number]) [address], [address] [place] [address] Monocytes/100 WBC (Bld) 12.2 % Normal [facility] Comment on above: Performed By: #### C BCA, CMP, , PINR #### [facility] ([id number]) [address], [address] [place] [address] Neutrophils/100 WBC (Bld) 73.5 % Normal [facility] Comment on above: Performed By: #### Aquiles CARMONA, CMP, , PINR #### [facility] ([id number]) [address], [address] [place] [address] Platelet mean volume (Bld) [Entitic vol] 8.5 fL Normal 7-12 [facility] Comment on above: Performed By: #### Aquiles CARMONA, CMP, , PINR #### [facility] ([id number]) [address], [address] [place] [address] Platelets (Bld) [#/Vol] 247 10*3/uL Normal 150-450 [facility] Comment on above: Performed By: #### C BCA, CMP, , PINR #### [facility] ([id number]) [address], [address] [place] [address] RBC COUNT 3.50 X10E12/L Low 4.10-5.70 [facility] Comment on above: Performed By: #### C BCA, CMP, , PINR #### [facility] ([id number]) [address], [address] [place] [address] WBC (Bld) [#/Vol] 7.7 10*3/uL Normal 4.0-11.0 [facility] Comment on above: Performed By: #### C BCA, CMP, 95408-7, PINR #### [facility] ([id number]) [address] [place] [address] CBC auto differentialon 12-26 Basophils (Bld) [#/Vol] 0.1 10*3/uL [facility] Basophils/100 WBC (Bld) 0.9 % [facility] Eosinophils (Bld) [#/Vol] 0.4 10*3/uL [facility] Eosinophils/100 WBC (Bld) 5.2 % [facility] Erythrocyte distribution width (RBC) [Ratio] 16.2 % High 11.5 - 15.0 % [facility] Hematocrit (Bld) [Volume fraction] 32.7 % Low 39 - 49 % [facility] Hemoglobin (Bld) [Mass/Vol] 11.1 g/dL Low 13.0 - 17.0 g/dL [facility] Interpretation and review of laboratory results Abnormal [facility] Lymphocytes (Bld) [#/Vol] 0.6 10*3/uL Low [facility] Lymphocytes/100 WBC (Bld) 8.2 % [facility] MCH (RBC) [Entitic mass] 31.7 pg 27 - 34 pg [facility] MCHC (RBC) [Mass/Vol] 33.8 g/dL 32 - 36 g/dL [facility] MCV (RBC) [Entitic vol] 94 fL 80 - 100 fL [facility] Monocytes (Bld) [#/Vol] 0.9 10*3/uL [facility] Monocytes/100 WBC (Bld) 12.2 % [facility] Neutrophils (Bld) [#/Vol] 5.6 10*3/uL [facility] Neutrophils/100 WBC (Bld) 73.5 % [facility] Platelet mean volume (Bld) [Entitic vol] 8.5 fL 7 - 12 fL [facility] Platelets (Bld) [#/Vol] 247 10*3/uL [facility] RBC (Bld) [#/Vol] 3.50 10*6/uL Low [facility] WBC corrected for nucl RBC Auto (Bld) [#/Vol] 7.7 [facility] COMPREHENSIVE METABOLIC PANE Roberto 01-05-2024 Albumin [Mass/Vol] 2.3 g/dL Low 3.2-5.3 [facility] Comment on above: Performed By: #### 8 2477-1, 54728-7, 1988-03 #### [facility] ([id number]) [address], [address] [place] [address] ALP [Catalytic activity/Vol] 315 U/L High 39-130 [facility] Comment on above: Performed By: #### 8 2477-1, 24374-5, 1988-03 #### [facility] ([id number]) [address], [address] [place] [address] ALT [Catalytic activity/Vol] 72 U/L High 0-40 [facility] Comment on above: Performed By: #### 8 2477-1, 80145-0, 1988-03 #### [facility] ([id number]) [address], [address] [place] [address] Anion gap [Moles/Vol] 5 mmol/L Normal 5-15 [facility] Comment on above: Performed By: #### 8 2477-1, 36742-5, 1988-03 #### [facility] ([id number]) [address], [address] [place] [address] AST [Catalytic activity/Vol] 49 U/L High 0-41 [facility] Comment on above: Performed By: #### 8 2477-1, 77442-6, 1988-03 #### [facility] ([id number]) [address], [address] [place] [address] Bilirubin [Mass/Vol] 0.8 mg/dL Normal 0.3-1.2 [facility] [place] [facility] Comment on above: Performed By: #### 8 2477-1, 10200-0, 1988-03 #### [facility] ([id number]) [address], [address] [place] [address] Calcium [Mass/Vol] 8.1 mg/dL Low 8.5-10.5 [facility] Comment on above: Performed By: #### 8 2477-1, 80970-0, 1988-03 #### [facility] ([id number]) [address], [address] [place] [address] Chloride [Moles/Vol] 102 mmol/L Normal 98-109 [facility] Comment on above: Performed By: #### 8 2477-1, 00809-3, 1988-03 #### [facility] ([id number]) [address], [address] [place] [address] CO2 [Moles/Vol] 37 mmol/L High 22-32 [facility] Comment on above: Performed By: #### 8 2477-1, 71133-8, 1988-03 #### [facility] ([id number]) [address], [address] [place] [address] Creatinine [Mass/Vol] 0.78 mg/dL Normal 0.60-1.30 [facility] Comment on above: Result Comment: METH OD TRACEABLE TO IDMS STANDARD Performed By: #### 8 2477-1, 32310-9, 1988-03 #### [facility] ([id number]) [address], [address] [place] [address] eGFR (CKD-EPI) NON-RACE DEPENDENT >90 Normal >59 [facility] Comment on above: Result Comment: Reported eGFR is based on the CKD-EPI 2020 equation that does not use a race coefficient. Performed By: #### 8 2477-1, 95929-3, 1988-03 #### [facility] ([id number]) [address], [address] [place] [address] Glucose [Mass/Vol] 117 mg/dL High 65-99 [facility] Comment on above: Performed By: #### 8 2477-1, 81567-0, 1988-03 #### [facility] ([id number]) [address], [address] [place] [address] Potassium [Moles/Vol] 4.3 mmol/L Normal 3.5-5.0 [facility] Comment on above: Performed By: #### 8 2477-1, 32894-9, 1988-03 #### [facility] ([id number]) [address], [address] [place] [address] Protein [Mass/Vol] 5.4 g/dL Low 6.0-8.0 [facility] Comment on above: Performed By: #### 8 2477-1, 65577-1, 1988-03 #### [facility] ([id number]) [address], [address] [place] [address] Sodium [Moles/Vol] 144 mmol/L Normal 134-146 [facility] Comment on above: Performed By: #### 8 2477-1, 91703-1, 1988-03 #### [facility] ([id number]) [address], [address] [place] [address] Urea nitrogen [Mass/Vol] 26 mg/dL High 5-23 [facility] Comment on above: Performed By: #### 8 2477-1, 03379-1, 1988-03 #### [facility] ([id number]) [address], [address] [place] [address] Comprehensive metabolic pane roberto 01-05-2024 Albumin [Mass/Vol] 2.3 g/dL Low 3.2 - 5.3 g/dL [facility] ALP [Catalytic activity/Vol] 315 U/L High 39 - 130 U/L [facility] ALT No additional P-5'-P [Catalytic activity/Vol] 72 U/L High 0 - 40 U/L [facility] Anion gap [Moles/Vol] 5 mmol/L 5 - 15 mmol/L [facility] AST [Catalytic activity/Vol] 49 U/L High 0 - 41 U/L [facility] Bilirubin [Mass/Vol] 0.8 mg/dL 0.3 - 1 .2 mg/dL [facility] Calcium [Mass/Vol] 8.1 mg/dL Low 8.5 - 10. 5 mg/dL [facility] Chloride [Moles/Vol] 102 mmol/L 98 - 10 9 mmol/L [facility] CO2 [Moles/Vol] 37 mmol/L High 22 - 32 mmol/L [facility] Creatinine [Mass/Vol] 0.78 mg/dL 0.60 - 1.30 mg/dL [facility] eGFR (CKD-EPI)non-race dependent - PINF [facility] Glucose [Mass/Vol] 117 mg/dL High 65 - 99 mg/dL [facility] Interpretation and review of laboratory results Abnormal [facility] Potassium [Moles/Vol] 4.3 mmol/L 3.5 - 5.0 mmol/L [facility] Protein [Mass/Vol] 5.4 g/dL Low 6.0 - 8.0 g/dL [facility] Sodium [Moles/Vol] 144 mmol/L 134 - 146 mmol/L [facility] Urea nitrogen [Mass/Vol] 26 mg/dL High 5 - 23 mg/dL [facility] Glucose Glucometer (BldC) [M ass/Vol]on 01-05-2024 Glucose [Mass/Vol] 222 mg/dL High 65-99 [facility] Glucose [Mass/Vol] 222 mg/dL High 65 - 99 mg/dL [facility] Interpretation and review of laboratory results Abnormal [facility] Glucose [Mass/Vol] 182 mg/dL High 65-99 [facility] Glucose [Mass/Vol] 182 mg/dL High 65 - 99 mg/dL [facility] Interpretation and review of laboratory results Abnormal [facility] Glucose [Mass/Vol] 149 mg/dL High 65-99 [facility] Glucose [Mass/Vol] 149 mg/dL High 65 - 99 mg/dL [facility] Interpretation and review of laboratory results Abnormal [facility] Glucose [Mass/Vol] 104 mg/dL High 65-99 [facility] Glucose [Mass/Vol] 104 mg/dL High 65 - 99 mg/dL [facility] Interpretation and review of laboratory results Abnormal [facility] Glucose [Mass/Vol] 218 mg/dL High 65-99 [facility] MAGNESIUMon 01-05-2024 Magnesium [Mass/Vol] 1.8 mg/dL Normal 1.8-2.6 [facility] Comment on above: Performed By: #### 8 2477-1, 65669-9, 1988-03 #### [facility] ([id number]) [address], [address] [place] [address] Magnesiumon 01-05-2024 Magnesium [Mass/Vol] 1.8 mg/dL 1.8 - 2 .6 mg/dL [facility] No Panel Informationon 01-05 [facility] PROTIME AND INRon 01-05-2024 INR Coag (PPP) [Relative time] 2.1 {INR} High 0.8-1.1 [facility] Comment on above: Performed By: #### Aquiles CARMONA CMP, 24830-8, PINR #### [facility] ([id number]) [address], [address] [place] [address] PT Coag (PPP) [Time] 24.1 s High 9.8-13.2 [facility] Comment on above: Performed By: #### Aquiles CARMONA CMP, , PINR #### [facility] ([id number]) [address], [address] [place] [address] Protime & INRon 01-05-2024 INR Coag (PPP) [Relative time] 2.1 {INR} High [facility] Interpretation and review of laboratory results Abnormal [facility] PT Coag (PPP) [Time] 24.1 s High [facility] CBC AND AUTO DIFFon 01-04-20 24 ABSOLUTE BASOPHIL 0.0 X10E9/L Normal 0.0-0.2 [facility] Comment on above: Performed By: #### 8 2477-1, 13010-6, 1988-03 #### [facility] ([id number]) [address], [address] [place] [address] ABSOLUTE NEUTROPHIL 6.5 X10E9/L Normal 1.5-6.6 [facility] Comment on above: Performed By: #### 8 2477-, 81055-3, 1988-03 #### [facility] ([id number]) [address], [address] [place] [address] Basophils/100 WBC (Bld) 0.4 % Normal [facility] Comment on above: Performed By: #### 8 2477-, 34233-3, 1988-03 #### [facility] ([id number]) [address], [address] [place] [address] Eosinophils (Bld) [#/Vol] 0.4 10*3/uL Normal 0.0-0.4 [facility] Comment on above: Performed By: #### 8 2477-1, 60824-4, 1988-03 #### [facility] ([id number]) [address], [address] [place] [address] Eosinophils/100 WBC (Bld) 4.9 % Normal [facility] Comment on above: Performed By: #### 8 2477-, 75093-1, 1988-03 #### [facility] ([id number]) [address], [address] [place] [address] Erythrocyte distribution width (RBC) [Ratio] 16.0 % High 11.5-15.0 [facility] Comment on above: Performed By: #### 8 2477-1, 29090-1, 1988-03 #### [facility] ([id number]) [address], [address] [place] [address] Hematocrit (Bld) [Volume fraction] 33.9 % Low 39-49 [facility] Comment on above: Performed By: #### 8 2477-, , 1988-03 #### [facility] ([id number]) [address], [address] [place] [address] Hemoglobin (Bld) [Mass/Vol] 11.4 g/dL Low 13.0-17.0 [facility] Comment on above: Performed By: #### 8 2477-, , 1988-03 #### [facility] ([id number]) [address], [address] [place] [address] Lymphocytes (Bld) [#/Vol] 0.7 10*3/uL Low 1.0-3.5 [facility] Comment on above: Performed By: #### 8 2477-, , 1988-03 #### [facility] ([id number]) [address], [address] [place] [address] Lymphocytes/100 WBC (Bld) 8.4 % Normal [facility] Comment on above: Performed By: #### 8 2477-, , 1988-03 #### [facility] ([id number]) [address], [address] [place] [address] MCH (RBC) [Entitic mass] 31.2 pg Normal 27-34 [facility] Comment on above: Performed By: #### 8 2477-, , 1988-03 #### [facility] ([id number]) [address], [address] [place] [address] MCHC (RBC) [Mass/Vol] 33.6 g/dL Normal 32-36 [facility] Comment on above: Performed By: #### 8 2477-1, 20475-2, 1988-03 #### [facility] ([id number]) [address], [address] [place] [address] MCV (RBC) [Entitic vol] 93 fL Normal 80-100 [facility] Comment on above: Performed By: #### 8 2477-, , 1988-03 #### [facility] ([id number]) [address], [address] [place] [address] Monocytes (Bld) [#/Vol] 1.0 10*3/uL High 0-0.9 [facility] Comment on above: Performed By: #### 8 2477-, , 1988-03 #### [facility] ([id number]) [address], [address] [place] [address] Monocytes/100 WBC (Bld) 11.1 % Normal [facility] Comment on above: Performed By: #### 8 2477-, 08547-5, 1988-03 #### [facility] ([id number]) [address], [address] [place] [address] Neutrophils/100 WBC (Bld) 75.2 % Normal [facility] Comment on above: Performed By: #### 8 2477-, 97050-5, 1988-03 #### [facility] ([id number]) [address], [address] [place] [address] Platelet mean volume (Bld) [Entitic vol] 8.5 fL Normal 7-12 [facility] Comment on above: Performed By: #### 8 2477-, 42874-5, 1988-03 #### [facility] ([id number]) [address], [address] [place] [address] Platelets (Bld) [#/Vol] 236 10*3/uL Normal 150-450 [facility] Comment on above: Performed By: #### 8 2477-1, 95307-7, 1988-03 #### [facility] ([id number]) [address], [address] [place] [address] RBC COUNT 3.66 X10E12/L Low 4.10-5.70 [facility] Comment on above: Performed By: #### 8 2477-1, 33578-9, 1988-03 #### [facility] ([id number]) [address] [place] [address] WBC (Bld) [#/Vol] 8.6 10*3/uL Normal 4.0-11.0 [facility] Comment on above: Performed By: #### 8 2477-1, 93042-7, 1988-03 #### [facility] ([id number]) [address], [address] [place] [address] CBC auto differentialon 12-26 Basophils (Bld) [#/Vol] 0.0 10*3/uL [facility] Basophils/100 WBC (Bld) 0.4 % [facility] Eosinophils (Bld) [#/Vol] 0.4 10*3/uL [facility] Eosinophils/100 WBC (Bld) 4.9 % [facility] Erythrocyte distribution width (RBC) [Ratio] 16.0 % High 11.5 - 15.0 % [facility] Hematocrit (Bld) [Volume fraction] 33.9 % Low 39 - 49 % [facility] Hemoglobin (Bld) [Mass/Vol] 11.4 g/dL Low 13.0 - 17.0 g/dL [facility] Interpretation and review of laboratory results Abnormal [facility] Lymphocytes (Bld) [#/Vol] 0.7 10*3/uL Low [facility] Lymphocytes/100 WBC (Bld) 8.4 % [facility] MCH (RBC) [Entitic mass] 31.2 pg 27 - 34 pg [facility] MCHC (RBC) [Mass/Vol] 33.6 g/dL 32 - 36 g/dL [facility] MCV (RBC) [Entitic vol] 93 fL 80 - 100 fL [facility] Monocytes (Bld) [#/Vol] 1.0 10*3/uL High [facility] Monocytes/100 WBC (Bld) 11.1 % [facility] Neutrophils (Bld) [#/Vol] 6.5 10*3/uL [facility] Neutrophils/100 WBC (Bld) 75.2 % [facility] Platelet mean volume (Bld) [Entitic vol] 8.5 fL 7 - 12 fL [facility] Platelets (Bld) [#/Vol] 236 10*3/uL [facility] RBC (Bld) [#/Vol] 3.66 10*6/uL Low [facility] WBC corrected for nucl RBC Auto (Bld) [#/Vol] 8.6 [facility] COMPREHENSIVE METABOLIC PANE Roberto 01-04-2024 Albumin [Mass/Vol] 2.2 g/dL Low 3.2-5.3 [facility] Comment on above: Performed By: #### 8 2477-1, 79496-9, 1988-03 #### [facility] ([id number]) [address], [address] [place] [address] ALP [Catalytic activity/Vol] 306 U/L High 39-130 [facility] Comment on above: Performed By: #### 8 2477-1, 88992-8, 1988-03 #### [facility] ([id number]) [address], [address] [place] [address] ALT [Catalytic activity/Vol] 77 U/L High 0-40 [facility] Comment on above: Performed By: #### 8 2477-1, 30230-4, 1988-03 #### [facility] ([id number]) [address], [address] [place] [address] Anion gap [Moles/Vol] 4 mmol/L Low 5-15 [facility] Comment on above: Performed By: #### 8 2477-1, 37202-4, 1988-03 #### [facility] ([id number]) [address], [address] [place] [address] AST [Catalytic activity/Vol] 56 U/L High 0-41 [facility] Comment on above: Performed By: #### 8 2477-1, , 1988-03 #### [facility] ([id number]) [address], [address] [place] [address] Bilirubin [Mass/Vol] 0.9 mg/dL Normal 0.3-1.2 [facility] Comment on above: Performed By: #### 8 2477-1, , 1988-03 #### [facility] ([id number]) [address], [address] [place] [address] Calcium [Mass/Vol] 7.8 mg/dL Low 8.5-10.5 [facility] Comment on above: Performed By: #### 8 2477-1, , 1988-03 #### [facility] ([id number]) [address], [address] [place] [address] Chloride [Moles/Vol] 101 mmol/L Normal 98-109 [facility] Comment on above: Performed By: #### 8 2477-1, 63272-7, 1988-03 #### [facility] ([id number]) [address], [address] [place] [address] CO2 [Moles/Vol] 35 mmol/L High 22-32 [facility] Comment on above: Performed By: #### 8 2477-1, 48316-6, 1988-03 #### [facility] ([id number]) [address], [address] [place] [address] Creatinine [Mass/Vol] 0.76 mg/dL Normal 0.60-1.30 [facility] Comment on above: Result Comment: METH OD TRACEABLE TO IDMS STANDARD Performed By: #### 8 2477-1, 30752-9, 1988-03 #### [facility] ([id number]) [address], [address] [place] [address] eGFR (CKD-EPI) NON-RACE DEPENDENT >90 Normal >59 [facility] Comment on above: Result Comment: Reported eGFR is based on the CKD-EPI 2020 equation that does not use a race coefficient. Performed By: #### 8 2477-1, 20152-1, 1988-03 #### [facility] ([id number]) [address], [address] [place] [address] Glucose [Mass/Vol] 124 mg/dL High 65-99 [facility] Comment on above: Performed By: #### 8 2477-1, 43179-6, 1988-03 #### [facility] ([id number]) [address], [address] [place] [address] Potassium [Moles/Vol] 4.1 mmol/L Normal 3.5-5.0 [facility] Comment on above: Performed By: #### 8 2477-1, 59212-9, 1988-03 #### [facility] ([id number]) [address], [address] [place] [address] Protein [Mass/Vol] 5.1 g/dL Low 6.0-8.0 [facility] Comment on above: Performed By: #### 8 2477-1, 63524-6, 1988-03 #### [facility] ([id number]) [address], [address] [place] [address] Sodium [Moles/Vol] 140 mmol/L Normal 134-146 [facility] Comment on above: Performed By: #### 8 2477-1, 64803-8, 1988-03 #### [facility] ([id number]) [address], [address] [place] [address] Urea nitrogen [Mass/Vol] 25 mg/dL High 5-23 [facility] Comment on above: Performed By: #### 8 2477-1, 84799-4, 1988-03 #### [facility] ([id number]) [address] [place] [address] Comprehensive metabolic pane roberto 01-04-2024 Albumin [Mass/Vol] 2.2 g/dL Low 3.2 - 5.3 g/dL [facility] ALP [Catalytic activity/Vol] 306 U/L High 39 - 130 U/L [facility] ALT No additional P-5'-P [Catalytic activity/Vol] 77 U/L High 0 - 40 U/L [facility] Anion gap [Moles/Vol] 4 mmol/L Low 5 - 15 mmol/L [facility] AST [Catalytic activity/Vol] 56 U/L High 0 - 41 U/L [facility] Bilirubin [Mass/Vol] 0.9 mg/dL 0.3 - 1 .2 mg/dL [facility] Calcium [Mass/Vol] 7.8 mg/dL Low 8.5 - 10. 5 mg/dL [facility] Chloride [Moles/Vol] 101 mmol/L 98 - 10 9 mmol/L [facility] CO2 [Moles/Vol] 35 mmol/L High 22 - 32 mmol/L [facility] Creatinine [Mass/Vol] 0.76 mg/dL 0.60 - 1.30 mg/dL [facility] eGFR (CKD-EPI)non-race dependent - PINF [facility] Glucose [Mass/Vol] 124 mg/dL High 65 - 99 mg/dL [facility] Interpretation and review of laboratory results Abnormal [facility] Potassium [Moles/Vol] 4.1 mmol/L 3.5 - 5.0 mmol/L [facility] Protein [Mass/Vol] 5.1 g/dL Low 6.0 - 8.0 g/dL [facility] Sodium [Moles/Vol] 140 mmol/L 134 - 146 mmol/L [facility] Urea nitrogen [Mass/Vol] 25 mg/dL High 5 - 23 mg/dL [facility] Glucose Glucometer (BldC) [M ass/Vol]on 01-04-2024 Glucose [Mass/Vol] 218 mg/dL High 65 - 99 mg/dL [facility] Interpretation and review of laboratory results Abnormal [facility] Glucose [Mass/Vol] 162 mg/dL High 65-99 [facility] Glucose [Mass/Vol] 162 mg/dL High 65 - 99 mg/dL [facility] Interpretation and review of laboratory results Abnormal [facility] Glucose [Mass/Vol] 201 mg/dL High 65-99 [facility] Glucose [Mass/Vol] 201 mg/dL High 65 - 99 mg/dL [facility] Interpretation and review of laboratory results Abnormal [facility] Glucose [Mass/Vol] 135 mg/dL High 65-99 [facility] Glucose [Mass/Vol] 135 mg/dL High 65 - 99 mg/dL [facility] Interpretation and review of laboratory results Abnormal [facility] MAGNESIUMon 01-04-2024 Magnesium [Mass/Vol] 2.0 mg/dL Normal 1.8-2.6 [facility] Comment on above: Performed By: #### 8 2477-1, 32816-7, 1988-03 #### [facility] ([id number]) [address] [place] [address] Magnesiumon 01-04-2024 Magnesium [Mass/Vol] 2.0 mg/dL 1.8 - 2 .6 mg/dL [facility] Natriuretic peptide B [Mass/ Vol]on 01-04-2024 Interpretation and review of laboratory results Abnormal [facility] Natriuretic peptide B (Bld) [Mass/Vol] 644 pg/mL High NINF - 100.0 pg/mL [facility] Natriuretic peptide B (Bld) [Mass/Vol] 644 pg/mL High <100.0 [facility] Comment on above: Performed By: #### 8 2477-1, 97706-6, 1988-03 #### [facility] ([id number]) [address] [place] [address] No Panel Informationon 01-04 [facility] PROTIME AND INRon 01-04-2024 INR Coag (PPP) [Relative time] 2.4 {INR} High 0.8-1.1 [facility] Comment on above: Performed By: #### 8 2477-1, 25506-6, 1988-03 #### [facility] ([id number]) [address], [address] [place] [address] PT Coag (PPP) [Time] 27.4 s High 9.8-13.2 [facility] Comment on above: Performed By: #### 8 2477-1, 92166-4, 1988-03 #### [facility] ([id number]) [address], [address] [place] [address] Protime & INRon 01-04-2024 INR Coag (PPP) [Relative time] 2.4 {INR} High [facility] Interpretation and review of laboratory results Abnormal [facility] PT Coag (PPP) [Time] 27.4 s High [facility] XR CHEST 1 VWon 01-04-2024 XR CHEST 1 VW XR CHEST 1 VW History: SOB Exam/Technique: Single AP view of the chest was obtained Comparison: Chest x-ray 12/23/2023 Findings: Cardiac size stable. There is no focal areas of airspace disease, pleural effusion or pneumothorax. IMPRESSION: Unremarkable chest x-ray Finalized by Silvia Michel MD on 01/04/2024 1:09 PM Normal [facility] XR Chest Single viewon 01-04 [facility] Radiology Study observation (narrative) [facility] XR Chest Single viewOrdered By: Silvia Michel on 01-04-2024 [facility] Work Phone: CBC AND AUTO DIFFon 01-03-20 24 ABSOLUTE BASOPHIL 0.0 X10E9/L Normal 0.0-0.2 [facility] Comment on above: Performed By: #### C BCA, CMP, 77916-3, PINR, 77402-5 ####[facility] ([id number])[address] [address] ABSOLUTE NEUTROPHIL 5.9 X10E9/L Normal 1.5-6.6 [facility] Comment on above: Performed By: #### C BCA, CMP, 33321-9, PINR, 79393-0 ####[facility] ([id number])[address], [address] [address] Basophils/100 WBC (Bld) 0.4 % Normal [facility] Comment on above: Performed By: #### C BCA, CMP, 43449-2, PINR, 68693-5 ####[facility] ([id number])[address] [address] Eosinophils (Bld) [#/Vol] 0.4 10*3/uL Normal 0.0-0.4 [facility] Comment on above: Performed By: #### C BCA, CMP, 24408-3, PINR, 95270-7 ####[facility] ([id number])[address] [address] [place] [address] Eosinophils/100 WBC (Bld) 5.5 % Normal [facility] Comment on above: Performed By: #### C BCA, CMP, 74444-1, PINR, 26088-6 ####[facility] ([id number])[address], [address] [address] Erythrocyte distribution width (RBC) [Ratio] 15.6 % High 11.5-15.0 [facility] Comment on above: Performed By: #### C BCA, CMP, 45754-1, PINR, 00350-5 ####[facility] ([id number])[address], [address], [place] [address] Hematocrit (Bld) [Volume fraction] 31.8 % Low 39-49 [facility] Comment on above: Performed By: #### C BCA, CMP, 73301-5, PINR, 11553-3 ####[facility] ([id number])[address], [address], [place] [address] Hemoglobin (Bld) [Mass/Vol] 10.7 g/dL Low 13.0-17.0 [facility] Comment on above: Performed By: #### C BCA, CMP, , PINR, 07919-6 ####[facility] ([id number])[address], [place] [address] Lymphocytes (Bld) [#/Vol] 0.7 10*3/uL Low 1.0-3.5 [facility] Comment on above: Performed By: #### C BCA, CMP, , PINR, 48970-2 ####[facility] ([id number])[address] [address], [place] [address] Lymphocytes/100 WBC (Bld) 9.3 % Normal [facility] Comment on above: Performed By: #### C BCA, CMP, , PINR, 23553-4 ####[facility] ([id number])[address], [place] [address] MCH (RBC) [Entitic mass] 31.6 pg Normal 27-34 [facility] Comment on above: Performed By: #### C BCA, CMP, , PINR, 89102-4 ####[facility] ([id number])[address], [place] [address] MCHC (RBC) [Mass/Vol] 33.7 g/dL Normal 32-36 [facility] Comment on above: Performed By: #### C BCA, CMP, 14133-3, PINR, 20719-0 ####[facility] ([id number])[address], [place] [address] MCV (RBC) [Entitic vol] 94 fL Normal 80-100 [facility] Comment on above: Performed By: #### C BCA, CMP, 89866-0, PINR, 08931-3 ####[facility] ([id number])[address], [place] [address] Monocytes (Bld) [#/Vol] 0.7 10*3/uL Normal 0-0.9 [facility] Comment on above: Performed By: #### C BCA, CMP, 90978-0, PINR, 35632-8 ####[facility] ([id number])[address], [place] [address] Monocytes/100 WBC (Bld) 9.5 % Normal [facility] Comment on above: Performed By: #### C BCA, CMP, 58161-1, PINR, 25084-2 ####[facility] ([id number])[address], [address], [place] [address] Neutrophils/100 WBC (Bld) 75.3 % Normal [facility] Comment on above: Performed By: #### C BCA, CMP, 97650-9, PINR, 34238-9 ####[facility] ([id number])[address], [address], [place] [address] Platelet mean volume (Bld) [Entitic vol] 8.2 fL Normal 7-12 [facility] Comment on above: Performed By: #### C BCA, CMP, 21931-3, PINR, 41711-3 ####[facility] ([id number])[address], [place] [address] Platelets (Bld) [#/Vol] 198 10*3/uL Normal 150-450 [facility] Comment on above: Performed By: #### C BCA, CMP, , PINR, 20781-0 ####[facility] ([id number])[address], [address] [address] RBC COUNT 3.40 X10E12/L Low 4.10-5.70 [facility] Comment on above: Performed By: #### C BCA, CMP, , PINR, 71899-6 ####[facility] ([id number])[address], [address] [place] [address] WBC (Bld) [#/Vol] 7.8 10*3/uL Normal 4.0-11.0 [facility] Comment on above: Performed By: #### Aquiles BCA, CMP, , PINR, 46496-6 ####[facility] ([id number])[address], [address] [address] CBC auto differentialon 0 Basophils (Bld) [#/Vol] 0.0 10*3/uL [facility] Basophils/100 WBC (Bld) 0.4 % [facility] Eosinophils (Bld) [#/Vol] 0.4 10*3/uL [facility] Eosinophils/100 WBC (Bld) 5.5 % [facility] Erythrocyte distribution width (RBC) [Ratio] 15.6 % High 11.5 - 15.0 % [facility] Hematocrit (Bld) [Volume fraction] 31.8 % Low 39 - 49 % [facility] Hemoglobin (Bld) [Mass/Vol] 10.7 g/dL Low 13.0 - 17.0 g/dL [facility] Interpretation and review of laboratory results Abnormal [facility] Lymphocytes (Bld) [#/Vol] 0.7 10*3/uL Low [facility] Lymphocytes/100 WBC (Bld) 9.3 % [facility] MCH (RBC) [Entitic mass] 31.6 pg 27 - 34 pg [facility] MCHC (RBC) [Mass/Vol] 33.7 g/dL 32 - 36 g/dL [facility] MCV (RBC) [Entitic vol] 94 fL 80 - 100 fL [facility] Monocytes (Bld) [#/Vol] 0.7 10*3/uL [facility] Monocytes/100 WBC (Bld) 9.5 % [facility] Neutrophils (Bld) [#/Vol] 5.9 10*3/uL [facility] Neutrophils/100 WBC (Bld) 75.3 % [facility] Platelet mean volume (Bld) [Entitic vol] 8.2 fL 7 - 12 fL [facility] Platelets (Bld) [#/Vol] 198 10*3/uL [facility] RBC (Bld) [#/Vol] 3.40 10*6/uL Low [facility] WBC corrected for nucl RBC Auto (Bld) [#/Vol] 7.8 [facility] COMPREHENSIVE METABOLIC PANE Roberto 01-03-2024 Albumin [Mass/Vol] 2.2 g/dL Low 3.2-5.3 [facility] Comment on above: Performed By: #### 8 2477-1, 76278-1, 1988-03 #### [facility] ([id number]) [address], [address] [place] [address] ALP [Catalytic activity/Vol] 262 U/L High 39-130 [facility] Comment on above: Performed By: #### 8 2477-1, 44506-8, 1988-03 #### [facility] ([id number]) [address], [address] [place] [address] ALT [Catalytic activity/Vol] 76 U/L High 0-40 [facility] Comment on above: Performed By: #### 8 2477-1, 72195-2, 1988-03 #### [facility] ([id number]) [address], [address] [place] [address] Anion gap [Moles/Vol] 4 mmol/L Low 5-15 [facility] Comment on above: Performed By: #### 8 2477-1, , 1988-03 #### [facility] ([id number]) [address], [address] [place] [address] AST [Catalytic activity/Vol] 53 U/L High 0-41 [facility] Comment on above: Performed By: #### 8 2477-1, , 1988-03 #### [facility] ([id number]) [address], [address] [place] [address] Bilirubin [Mass/Vol] 0.7 mg/dL Normal 0.3-1.2 [facility] Comment on above: Performed By: #### 8 2477-1, , 1988-03 #### [facility] ([id number]) [address], [address] [place] [address] Calcium [Mass/Vol] 7.8 mg/dL Low 8.5-10.5 [facility] Comment on above: Performed By: #### 8 2477-, , 1988-03 #### [facility] ([id number]) [address], [address] [place] [address] Chloride [Moles/Vol] 102 mmol/L Normal 98-109 [facility] Comment on above: Performed By: #### 8 2477-1, , 1988-03 #### [facility] ([id number]) [address], [address] [place] [address] CO2 [Moles/Vol] 36 mmol/L High 22-32 [facility] Comment on above: Performed By: #### 8 2477-, , 1988-03 #### [facility] ([id number]) [address], [address] [place] [address] Creatinine [Mass/Vol] 0.90 mg/dL Normal 0.60-1.30 [facility] Comment on above: Result Comment: METH OD TRACEABLE TO IDMS STANDARD Performed By: #### 8 2477-1, 89448-5, 1988-03 #### [facility] ([id number]) [address], [address] [place] [address] eGFR (CKD-EPI) NON-RACE DEPENDENT >90 Normal >59 [facility] Comment on above: Result Comment: Reported eGFR is based on the CKD-EPI 2020 equation that does not use a race coefficient. Performed By: #### 8 2477-1, 95472-8, 1988-03 #### [facility] ([id number]) [address], [address] [place] [address] Glucose [Mass/Vol] 107 mg/dL High 65-99 [facility] Comment on above: Performed By: #### 8 2477-1, 28542-5, 1988-03 #### [facility] ([id number]) [address], [address] [place] [address] Potassium [Moles/Vol] 4.2 mmol/L Normal 3.5-5.0 [facility] Comment on above: Performed By: #### 8 2477-1, 58264-9, 1988-03 #### [facility] ([id number]) [address], [address] [place] [address] Protein [Mass/Vol] 4.7 g/dL Low 6.0-8.0 [facility] Comment on above: Performed By: #### 8 2477-1, 04502-1, 1988-03 #### [facility] ([id number]) [address], [address] [place] [address] Sodium [Moles/Vol] 142 mmol/L Normal 134-146 [facility] Comment on above: Performed By: #### 8 2477-1, 52366-8, 1988-03 #### [facility] ([id number]) [address], [address] [place] [address] Urea nitrogen [Mass/Vol] 30 mg/dL High 5-23 [facility] Comment on above: Performed By: #### 8 2477-1, 30654-5, 1988-03 #### [facility] ([id number]) [address] [place] [address] Comprehensive metabolic pane roberto 01-03-2024 Albumin [Mass/Vol] 2.2 g/dL Low 3.2 - 5.3 g/dL [facility] ALP [Catalytic activity/Vol] 262 U/L High 39 - 130 U/L [facility] ALT No additional P-5'-P [Catalytic activity/Vol] 76 U/L High 0 - 40 U/L [facility] Anion gap [Moles/Vol] 4 mmol/L Low 5 - 15 mmol/L [facility] AST [Catalytic activity/Vol] 53 U/L High 0 - 41 U/L [facility] Bilirubin [Mass/Vol] 0.7 mg/dL 0.3 - 1 .2 mg/dL [facility] Calcium [Mass/Vol] 7.8 mg/dL Low 8.5 - 10. 5 mg/dL [facility] Chloride [Moles/Vol] 102 mmol/L 98 - 10 9 mmol/L [facility] CO2 [Moles/Vol] 36 mmol/L High 22 - 32 mmol/L [facility] Creatinine [Mass/Vol] 0.90 mg/dL 0.60 - 1.30 mg/dL [facility] eGFR (CKD-EPI)non-race dependent - PINF [facility] Glucose [Mass/Vol] 107 mg/dL High 65 - 99 mg/dL [facility] Interpretation and review of laboratory results Abnormal [facility] Potassium [Moles/Vol] 4.2 mmol/L 3.5 - 5.0 mmol/L [facility] Protein [Mass/Vol] 4.7 g/dL Low 6.0 - 8.0 g/dL [facility] Sodium [Moles/Vol] 142 mmol/L 134 - 146 mmol/L [facility] Urea nitrogen [Mass/Vol] 30 mg/dL High 5 - 23 mg/dL [facility] Glucose Glucometer (BldC) [M ass/Vol]on 01-03-2024 Glucose [Mass/Vol] 119 mg/dL High 65-99 [facility] Glucose [Mass/Vol] 119 mg/dL High 65 - 99 mg/dL [facility] Interpretation and review of laboratory results Abnormal [facility] Glucose [Mass/Vol] 267 mg/dL High 65-99 [facility] Glucose [Mass/Vol] 267 mg/dL High 65 - 99 mg/dL [facility] Interpretation and review of laboratory results Abnormal [facility] Glucose [Mass/Vol] 125 mg/dL High 65-99 [facility] Glucose [Mass/Vol] 125 mg/dL High 65 - 99 mg/dL [facility] Interpretation and review of laboratory results Abnormal [facility] Glucose [Mass/Vol] 99 mg/dL Normal 65-99 [facility] Glucose [Mass/Vol] 99 mg/dL 65 - 99 mg/dL [facility] MAGNESIUMon 01-03-2024 Magnesium [Mass/Vol] 2.0 mg/dL Normal 1.8-2.6 [facility] Comment on above: Performed By: #### 8 2477-1, 47761-5, 1988-03 #### [facility] ([id number]) [address] [place] [address], [address] [place] [address] Magnesiumon 01-03-2024 Magnesium [Mass/Vol] 2.0 mg/dL 1.8 - 2 .6 mg/dL [facility] Natriuretic peptide B [Mass/ Vol]on 01-03-2024 Interpretation and review of laboratory results Abnormal [facility] Natriuretic peptide B (Bld) [Mass/Vol] 623 pg/mL High NINF - 100.0 pg/mL [facility] Natriuretic peptide B (Bld) [Mass/Vol] 623 pg/mL High <100.0 [facility] Comment on above: Performed By: #### 8 2477-1, 04378-4, 1988-03 #### [facility] ([id number]) [address] [place] [address] No Panel Informationon 01-03 [facility] PROTIME AND INRon 01-03-2024 INR Coag (PPP) [Relative time] 2.7 {INR} High 0.8-1.1 [facility] Comment on above: Performed By: #### 8 2477-1, 03488-8, 1988-03 #### [facility] ([id number]) [address] [place] [address] PT Coag (PPP) [Time] 29.9 s High 9.8-13.2 [facility] Comment on above: Performed By: #### 8 2477-1, 07415-9, 1988-03 #### [facility] ([id number]) [address] [place] [address] Protime & INRon 01-03-2024 INR Coag (PPP) [Relative time] 2.7 {INR} High [facility] Interpretation and review of laboratory results Abnormal [facility] PT Coag (PPP) [Time] 29.9 s High [facility] CBC AND AUTO DIFFon 01-02-20 24 ABSOLUTE BASOPHIL 0.0 X10E9/L Normal 0.0-0.2 [facility] Comment on above: Performed By: #### C BCA, CMP, 17852-6, PINR ####[facility] ([id number])[address] [address] ABSOLUTE NEUTROPHIL 5.7 X10E9/L Normal 1.5-6.6 [facility] Comment on above: Performed By: #### C BCA, CMP, 69394-7, PINR ####[facility] ([id number])[address], [address] [address] Basophils/100 WBC (Bld) 0.2 % Normal [facility] Comment on above: Performed By: #### C MATHEW CMP, , PINR ####[facility] ([id number])[address], [address] [address] Eosinophils (Bld) [#/Vol] 0.5 10*3/uL High 0.0-0.4 [facility] Comment on above: Performed By: #### C MATHEW, CMP, , PINR ####[facility] ([id number])[address], [address] [address] Eosinophils/100 WBC (Bld) 6.4 % Normal [facility] Comment on above: Performed By: #### Aquiles CARMONA, CMP, , PINR ####[facility] ([id number])[address] [address] [address] Erythrocyte distribution width (RBC) [Ratio] 15.3 % High 11.5-15.0 [facility] Comment on above: Performed By: #### C BCA, CMP, , PINR ####[facility] ([id number])[address] [address] [address] Hematocrit (Bld) [Volume fraction] 31.7 % Low 39-49 [facility] Comment on above: Performed By: #### C BCA, CMP, , PINR ####[facility] ([id number])[address], [address], [place] [address] Hemoglobin (Bld) [Mass/Vol] 10.6 g/dL Low 13.0-17.0 [facility] Comment on above: Performed By: #### C BCA, CMP, , PINR ####[facility] ([id number])[address], [address] [place] [address] Lymphocytes (Bld) [#/Vol] 0.7 10*3/uL Low 1.0-3.5 [facility] Comment on above: Performed By: #### C MATHEW, CMP, , PINR ####[facility] ([id number])[address], [address] [place] [address] Lymphocytes/100 WBC (Bld) 9.3 % Normal [facility] Comment on above: Performed By: #### C MATHEW, CMP, , PINR ####[facility] ([id number])[address], [address] [place] [address] MCH (RBC) [Entitic mass] 31.4 pg Normal 27-34 [facility] Comment on above: Performed By: #### Aquiles CARMONA, CMP, , PINR ####[facility] ([id number])[address], [address] [place] [address] MCHC (RBC) [Mass/Vol] 33.5 g/dL Normal 32-36 [facility] Comment on above: Performed By: #### C MATHEW, CMP, , PINR ####[facility] ([id number])[address], [address] [place] [address] MCV (RBC) [Entitic vol] 94 fL Normal 80-100 [facility] Comment on above: Performed By: #### C BCA, CMP, , PINR ####[facility] ([id number])[address], [address] [place] [address] Monocytes (Bld) [#/Vol] 0.9 10*3/uL Normal 0-0.9 [facility] Comment on above: Performed By: #### C BCA, CMP, , PINR ####[facility] ([id number])[address], [address] [address] Monocytes/100 WBC (Bld) 10.9 % Normal [facility] Comment on above: Performed By: #### C BCA, CMP, , PINR ####[facility] ([id number])[address] [address] Neutrophils/100 WBC (Bld) 73.2 % Normal [facility] Comment on above: Performed By: #### C BCA, CMP, , PINR ####[facility] ([id number])[address], [address] [address] Platelet mean volume (Bld) [Entitic vol] 8.5 fL Normal 7-12 [facility] Comment on above: Performed By: #### C BCA, CMP, , PINR ####[facility] ([id number])[address] [address], [place] [address] Platelets (Bld) [#/Vol] 167 10*3/uL Normal 150-450 [facility] Comment on above: Performed By: #### C BCA, CMP, , PINR ####[facility] ([id number])[address] [address] [address] RBC COUNT 3.38 X10E12/L Low 4.10-5.70 [facility] Comment on above: Performed By: #### C BCA, CMP, , PINR ####[facility] ([id number])[address] [address] [address] WBC (Bld) [#/Vol] 7.8 10*3/uL Normal 4.0-11.0 [facility] Comment on above: Performed By: #### C BCA, CMP, , PINR ####[facility] ([id number])[address] [address] CBC auto differentialon Basophils (Bld) [#/Vol] 0.0 10*3/uL [facility] Basophils/100 WBC (Bld) 0.2 % [facility] Eosinophils (Bld) [#/Vol] 0.5 10*3/uL High [facility] Eosinophils/100 WBC (Bld) 6.4 % [facility] Erythrocyte distribution width (RBC) [Ratio] 15.3 % High 11.5 - 15.0 % [facility] Hematocrit (Bld) [Volume fraction] 31.7 % Low 39 - 49 % [facility] Hemoglobin (Bld) [Mass/Vol] 10.6 g/dL Low 13.0 - 17.0 g/dL [facility] Interpretation and review of laboratory results [facility]normal [facility] Lymphocytes (Bld) [#/Vol] 0.7 10*3/uL Low [facility] Lymphocytes/100 WBC (Bld) 9.3 % [facility] MCH (RBC) [Entitic mass] 31.4 pg 27 - 34 pg [facility] MCHC (RBC) [Mass/Vol] 33.5 g/dL 32 - 36 g/dL [facility] MCV (RBC) [Entitic vol] 94 fL 80 - 100 fL [facility] Monocytes (Bld) [#/Vol] 0.9 10*3/uL [facility] Monocytes/100 WBC (Bld) 10.9 % [facility] Neutrophils (Bld) [#/Vol] 5.7 10*3/uL [facility] Neutrophils/100 WBC (Bld) 73.2 % [facility] Platelet mean volume (Bld) [Entitic vol] 8.5 fL 7 - 12 fL [facility] Platelets (Bld) [#/Vol] 167 10*3/uL [facility] RBC (Bld) [#/Vol] 3.38 10*6/uL Low [facility] WBC corrected for nucl RBC Auto (Bld) [#/Vol] 7.8 [facility] COMPREHENSIVE METABOLIC PANE Roberto 01-02-2024 Albumin [Mass/Vol] 2.2 g/dL Low 3.2-5.3 [facility] Comment on above: Performed By: #### C MATHEW, CMP, , PINR ####[facility] ([id number])[address], [place] [address] ALP [Catalytic activity/Vol] 260 U/L High 39-130 [facility] Comment on above: Performed By: #### C BCA, CMP, , PINR ####[facility] ([id number])[address], [address], [place] [address] ALT [Catalytic activity/Vol] 81 U/L High 0-40 [facility] Comment on above: Performed By: #### C BCA, CMP, , PINR ####[facility] ([id number])[address], [address], [place] [address] Anion gap [Moles/Vol] 3 mmol/L Low 5-15 [facility] Comment on above: Performed By: #### C MATHEW, CMP, , PINR ####[facility] ([id number])[address], [address], [place] [address] AST [Catalytic activity/Vol] 58 U/L High 0-41 [facility] Comment on above: Performed By: #### C BCA, CMP, , PINR ####[facility] ([id number])[address], [address], [place] [address] Bilirubin [Mass/Vol] 0.7 mg/dL Normal 0.3-1.2 [facility] Comment on above: Performed By: #### C BCA, CMP, , PINR ####[facility] ([id number])[address], [address], [place] [address] Calcium [Mass/Vol] 7.8 mg/dL Low 8.5-10.5 [facility] Comment on above: Performed By: #### C BCA, CMP, , PINR ####[facility] ([id number])[address] [address] [address] Chloride [Moles/Vol] 101 mmol/L Normal 98-109 [facility] Comment on above: Performed By: #### C BCA, CMP, , PINR ####[facility] ([id number])[address] [address] [address] CO2 [Moles/Vol] 38 mmol/L High 22-32 [facility] Comment on above: Performed By: #### C BCA, CMP, , PINR ####[facility] ([id number])[address] [address] [place] [address] Creatinine [Mass/Vol] 0.89 mg/dL Normal 0.60-1.30 [facility] Comment on above: Result Comment: METH OD TRACEABLE TO IDMS STANDARD Performed By: #### C MATHEW CMP, , PINR ####[facility] ([id number])[address] [place] [address] eGFR (CKD-EPI) NON-RACE DEPENDENT >90 Normal >59 [facility] Comment on above: Result Comment: Reported eGFR is based on the CKD-EPI 2021 equation that does not use a race coefficient. Performed By: #### C BCA, CMP, , PINR ####[facility] ([id number])[address] [address], [place] [address] Glucose [Mass/Vol] 107 mg/dL High 65-99 [facility] Comment on above: Performed By: #### C BCA, CMP, , PINR ####[facility] ([id number])[address] [address] [place] [address] Potassium [Moles/Vol] 4.1 mmol/L Normal 3.5-5.0 [facility] Comment on above: Performed By: #### C BCA, CMP, , PINR ####[facility] ([id number])[address], [address] [address] Protein [Mass/Vol] 4.6 g/dL Low 6.0-8.0 [facility] Comment on above: Performed By: #### C BCA, CMP, , PINR ####[facility] ([id number])[address], [address] [address] Sodium [Moles/Vol] 142 mmol/L Normal 134-146 [facility] Comment on above: Performed By: #### C BCA, CMP, , PINR ####[facility] ([id number])[address], [address] [place] [address] Urea nitrogen [Mass/Vol] 33 mg/dL High 5-23 [facility] Comment on above: Performed By: #### C BCA, CMP, , PINR ####[facility] ([id number])[address], [address] [address] Comprehensive metabolic pane roberto 01-02-2024 Albumin [Mass/Vol] 2.2 g/dL Low 3.2 - 5.3 g/dL [facility] ALP [Catalytic activity/Vol] 260 U/L High 39 - 130 U/L [facility] ALT No additional P-5'-P [Catalytic activity/Vol] 81 U/L High 0 - 40 U/L [facility] Anion gap [Moles/Vol] 3 mmol/L Low 5 - 15 mmol/L [facility] AST [Catalytic activity/Vol] 58 U/L High 0 - 41 U/L [facility] Bilirubin [Mass/Vol] 0.7 mg/dL 0.3 - 1 .2 mg/dL [facility] Calcium [Mass/Vol] 7.8 mg/dL Low 8.5 - 10. 5 mg/dL [facility] Chloride [Moles/Vol] 101 mmol/L 98 - 10 9 mmol/L [facility] CO2 [Moles/Vol] 38 mmol/L High 22 - 32 mmol/L [facility] Creatinine [Mass/Vol] 0.89 mg/dL 0.60 - 1.30 mg/dL [facility] eGFR (CKD-EPI)non-race dependent - PINF [facility] Glucose [Mass/Vol] 107 mg/dL High 65 - 99 mg/dL [facility] Interpretation and review of laboratory results Abnormal [facility] Potassium [Moles/Vol] 4.1 mmol/L 3.5 - 5.0 mmol/L [facility] Protein [Mass/Vol] 4.6 g/dL Low 6.0 - 8.0 g/dL [facility] Sodium [Moles/Vol] 142 mmol/L 134 - 146 mmol/L [facility] Urea nitrogen [Mass/Vol] 33 mg/dL High 5 - 23 mg/dL [facility] Glucose Glucometer (BldC) [M ass/Vol]on 01-02-2024 Glucose [Mass/Vol] 187 mg/dL High 65-99 [facility] Glucose [Mass/Vol] 187 mg/dL High 65 - 99 mg/dL [facility] Interpretation and review of laboratory results Abnormal [facility] Glucose [Mass/Vol] 182 mg/dL High 65-99 [facility] Glucose [Mass/Vol] 182 mg/dL High 65 - 99 mg/dL [facility] Interpretation and review of laboratory results Abnormal [facility] System Glucose [Mass/Vol] 131 mg/dL High 65-99 [facility] Glucose [Mass/Vol] 131 mg/dL High 65 - 99 mg/dL [facility] Interpretation and review of laboratory results Abnormal [facility] Glucose [Mass/Vol] 116 mg/dL High 65-99 [facility] Glucose [Mass/Vol] 116 mg/dL High 65 - 99 mg/dL [facility] Interpretation and review of laboratory results Abnormal [facility] Glucose [Mass/Vol] 109 mg/dL High 65-99 [facility] Glucose [Mass/Vol] 139 mg/dL High 65 - 99 mg/dL [facility] Interpretation and review of laboratory results Abnormal [facility] System Glucose [Mass/Vol] 109 mg/dL High 65 - 99 mg/dL [facility] Interpretation and review of laboratory results Abnormal [facility] MAGNESIUMon 01-02-2024 Magnesium [Mass/Vol] 2.0 mg/dL Normal 1.8-2.6 [facility] Comment on above: Performed By: #### Aquiles CARMONA CMP, , PINR ####[facility] ([id number])[address], [address] [place] [address] Magnesiumon 01-02-2024 Magnesium [Mass/Vol] 2.0 mg/dL 1.8 - 2 .6 mg/dL [facility] No Panel Informationon 01-02 [facility] PROTIME AND INRon 01-02-2024 INR Coag (PPP) [Relative time] 2.8 {INR} High 0.8-1.1 [facility] Comment on above: Performed By: #### Aquiles CARMONA CMP, , PINR ####[facility] ([id number])[address], [address] [place] [address] PT Coag (PPP) [Time] 31.9 s High 9.8-13.2 [facility] Comment on above: Performed By: #### Aquiles CARMONA CMP, , PINR ####[facility] ([id number])[address], [address] [place] [address] Protime & INRon 01-02-2024 INR Coag (PPP) [Relative time] 2.8 {INR} High [facility] Interpretation and review of laboratory results Abnormal [facility] PT Coag (PPP) [Time] 31.9 s High [facility] CBC AND AUTO DIFFon 01-01-20 24 ABSOLUTE BASOPHIL 0.0 X10E9/L Normal 0.0-0.2 [facility] Comment on above: Performed By: #### C MATHEW, CMP, , PINR ####[facility] ([id number])[address], [address] [address] ABSOLUTE NEUTROPHIL 7.4 X10E9/L High 1.5-6.6 [facility] Comment on above: Performed By: #### C MATHEW, CARMEN, , PINR ####[facility] ([id number])[address], [address] [place] [address]885 Basophils/100 WBC (Bld) 0.4 % Normal [facility] Comment on above: Performed By: #### Aquiles CARMONA, CMP, , PINR ####[facility] ([id number])[address], [address] [address] Eosinophils (Bld) [#/Vol] 0.5 10*3/uL High 0.0-0.4 [facility] Comment on above: Performed By: #### Aquiles CARMONA CMP, , PINR ####[facility] ([id number])[address], [address] [place] [address] Eosinophils/100 WBC (Bld) 5.6 % Normal [facility] Comment on above: Performed By: #### C MATHEW, CMP, , PINR ####[facility] ([id number])[address], [address] [place] [address] Erythrocyte distribution width (RBC) [Ratio] 15.4 % High 11.5-15.0 [facility] Comment on above: Performed By: #### Aquiles CARMONA CMP, , PINR ####[facility] ([id number])[address], [address] [address] Hematocrit (Bld) [Volume fraction] 33.9 % Low 39-49 [facility] Comment on above: Performed By: #### C BCA, CMP, , PINR ####[facility] ([id number])[address], [address] [address] Hemoglobin (Bld) [Mass/Vol] 11.5 g/dL Low 13.0-17.0 [facility] Comment on above: Performed By: #### C BCA, CMP, , PINR ####[facility] ([id number])[address], [address] [place] [address]202 Lymphocytes (Bld) [#/Vol] 0.7 10*3/uL Low 1.0-3.5 [facility] Comment on above: Performed By: #### C BCA, CMP, , PINR ####[facility] ([id number])[address] [address] [place] [address]809 Lymphocytes/100 WBC (Bld) 7.2 % Normal [facility] Comment on above: Performed By: #### C BCA, CMP, , PINR ####[facility] ([id number])[address] [address] [place] [address]44 MCH (RBC) [Entitic mass] 31.6 pg Normal 27-34 [facility] Comment on above: Performed By: #### C BCA, CMP, , PINR ####[facility] ([id number])[address] [address] [place] [address]50 MCHC (RBC) [Mass/Vol] 34.0 g/dL Normal 32-36 [facility] Comment on above: Performed By: #### C BCA, CMP, , PINR ####[facility] ([id number])[address], [address], [place] [address] MCV (RBC) [Entitic vol] 93 fL Normal 80-100 [facility] Comment on above: Performed By: #### C BCA, CMP, , PINR ####[facility] ([id number])[address], [address], [place] [address] Monocytes (Bld) [#/Vol] 1.0 10*3/uL High 0-0.9 [facility] Comment on above: Performed By: #### C BCA, CMP, , PINR ####[facility] ([id number])[address], [address], [place] [address] Monocytes/100 WBC (Bld) 10.7 % Normal [facility] Comment on above: Performed By: #### Aquiles BCA, CMP, , PINR ####[facility] ([id number])[address], [address], [place] [address] Neutrophils/100 WBC (Bld) 76.1 % Normal [facility] Comment on above: Performed By: #### Aquiles BCA, CMP, , PINR ####[facility] ([id number])[address], [address], [place] [address] Platelet mean volume (Bld) [Entitic vol] 8.4 fL Normal 7-12 [facility] Comment on above: Performed By: #### C BCA, CMP, , PINR ####[facility] ([id number])[address], [address], [place] [address] Platelets (Bld) [#/Vol] 181 10*3/uL Normal 150-450 [facility] Comment on above: Performed By: #### C BCA, CMP, , PINR ####[facility] ([id number])[address], [address], [place] [address] RBC COUNT 3.65 X10E12/L Low 4.10-5.70 [facility] Comment on above: Performed By: #### C MATHEW, [facility], [address]-6, PINR ####[facility] ([id number])[address], [address] [place] [address] WBC (Bld) [#/Vol] 9.8 10*3/uL Normal 4.0-11.0 [facility] Comment on above: Performed By: #### C MATHEW, [facility], [address]-3, PINR ####[facility] ([id number])[address], [address] [place] [address] CBC auto differentialon Basophils (Bld) [#/Vol] 0.0 10*3/uL [facility] Basophils/100 WBC (Bld) 0.4 % [facility] Eosinophils (Bld) [#/Vol] 0.5 10*3/uL High [facility] Eosinophils/100 WBC (Bld) 5.6 % [facility] Erythrocyte distribution width (RBC) [Ratio] 15.4 % High 11.5 - 15.0 % [facility] Hematocrit (Bld) [Volume fraction] 33.9 % Low 39 - 49 % [facility] Hemoglobin (Bld) [Mass/Vol] 11.5 g/dL Low 13.0 - 17.0 g/dL [facility] Interpretation and review of laboratory results Abnormal [facility] Lymphocytes (Bld) [#/Vol] 0.7 10*3/uL Low [facility] Lymphocytes/100 WBC (Bld) 7.2 % [facility] MCH (RBC) [Entitic mass] 31.6 pg 27 - 34 pg [facility] MCHC (RBC) [Mass/Vol] 34.0 g/dL 32 - 36 g/dL [facility] MCV (RBC) [Entitic vol] 93 fL 80 - 100 fL [facility] Monocytes (Bld) [#/Vol] 1.0 10*3/uL High [facility] Monocytes/100 WBC (Bld) 10.7 % [facility] Neutrophils (Bld) [#/Vol] 7.4 10*3/uL High [facility] Neutrophils/100 WBC (Bld) 76.1 % [facility] Platelet mean volume (Bld) [Entitic vol] 8.4 fL 7 - 12 fL [facility] Platelets (Bld) [#/Vol] 181 10*3/uL [facility] RBC (Bld) [#/Vol] 3.65 10*6/uL Low [facility] WBC corrected for nucl RBC Auto (Bld) [#/Vol] 9.8 [facility] COMPREHENSIVE METABOLIC PANE Roberto 01-01-2024 Albumin [Mass/Vol] 2.1 g/dL Low 3.2-5.3 [facility] Comment on above: Performed By: #### C MATHEW CMP, , PINR ####[facility] ([id number])[address], [address] [place] [address] ALP [Catalytic activity/Vol] 306 U/L High 39-130 [facility] Comment on above: Performed By: #### C BCA, CMP, , PINR ####[facility] ([id number])[address], [address] [address] ALT [Catalytic activity/Vol] 94 U/L High 0-40 [facility] Comment on above: Performed By: #### C BCA, CMP, , PINR ####[facility] ([id number])[address], [address] [place] [address] Anion gap [Moles/Vol] 5 mmol/L Normal 5-15 [facility] Comment on above: Performed By: #### C BCA, CMP, , PINR ####[facility] ([id number])[address], [address] [address] AST [Catalytic activity/Vol] 81 U/L High 0-41 [facility] Comment on above: Performed By: #### C BCA, CMP, , PINR ####[facility] ([id number])[address], [address], [place] [address] Bilirubin [Mass/Vol] 0.6 mg/dL Normal 0.3-1.2 [facility] Comment on above: Performed By: #### C BCA, CMP, , PINR ####[facility] ([id number])[address], [address], [place] [address] Calcium [Mass/Vol] 7.8 mg/dL Low 8.5-10.5 [facility] Comment on above: Performed By: #### C BCA, CMP, , PINR ####[facility] ([id number])[address], [address], [place] [address] Chloride [Moles/Vol] 102 mmol/L Normal 98-109 [facility] Comment on above: Performed By: #### C BCA, CMP, , PINR ####[facility] ([id number])[address] [address], [place] [address] CO2 [Moles/Vol] 37 mmol/L High 22-32 [facility] Comment on above: Performed By: #### C BCA, CMP, , PINR ####[facility] ([id number])[address], [address], [place] [address] Creatinine [Mass/Vol] 0.94 mg/dL Normal 0.60-1.30 [facility] Comment on above: Result Comment: METH OD TRACEABLE TO IDMS STANDARD Performed By: #### C BCA, CMP, , PINR ####[facility] ([id number])[address], [address], [place] [address] eGFR (CKD-EPI) NON-RACE DEPENDENT >90 Normal >59 [facility] Comment on above: Result Comment: Reported eGFR is based on the CKD-EPI 2020 equation that does not use a race coefficient. Performed By: #### C BCA, CMP, , PINR ####[facility] ([id number])[address], [address] [address] Glucose [Mass/Vol] 115 mg/dL High 65-99 [facility] Comment on above: Performed By: #### C BCA, CMP, , PINR ####[facility] ([id number])[address], [address] [address] Potassium [Moles/Vol] 4.4 mmol/L Normal 3.5-5.0 [facility] Comment on above: Performed By: #### C BCA, CMP, , PINR ####[facility] ([id number])[address], [address] [address] Protein [Mass/Vol] 4.7 g/dL Low 6.0-8.0 [facility] Comment on above: Performed By: #### C BCA, CMP, , PINR ####[facility] ([id number])[address], [address] [address] Sodium [Moles/Vol] 144 mmol/L Normal 134-146 [facility] Comment on above: Performed By: #### C BCA, CMP, , PINR ####[facility] ([id number])[address], [address] [place] [address] Urea nitrogen [Mass/Vol] 38 mg/dL High 5-23 [facility] Comment on above: Performed By: #### C BCA, CMP, , PINR ####[facility] ([id number])[address], [address] [place] [address] Comprehensive metabolic pane roberto 01-01-2024 Albumin [Mass/Vol] 2.1 g/dL Low 3.2 - 5.3 g/dL [facility] ALP [Catalytic activity/Vol] 306 U/L High 39 - 130 U/L [facility] ALT No additional P-5'-P [Catalytic activity/Vol] 94 U/L High 0 - 40 U/L [facility] Anion gap [Moles/Vol] 5 mmol/L 5 - 15 mmol/L [facility] AST [Catalytic activity/Vol] 81 U/L High 0 - 41 U/L [facility] Bilirubin [Mass/Vol] 0.6 mg/dL 0.3 - 1 .2 mg/dL [facility] Calcium [Mass/Vol] 7.8 mg/dL Low 8.5 - 10. 5 mg/dL [facility] Chloride [Moles/Vol] 102 mmol/L 98 - 10 9 mmol/L [facility] CO2 [Moles/Vol] 37 mmol/L High 22 - 32 mmol/L [facility] Creatinine [Mass/Vol] 0.94 mg/dL 0.60 - 1.30 mg/dL [facility] eGFR (CKD-EPI)non-race dependent - PINF [facility] Glucose [Mass/Vol] 115 mg/dL High 65 - 99 mg/dL [facility] Interpretation and review of laboratory results Abnormal [facility] Potassium [Moles/Vol] 4.4 mmol/L 3.5 - 5.0 mmol/L [facility] Protein [Mass/Vol] 4.7 g/dL Low 6.0 - 8.0 g/dL [facility] Sodium [Moles/Vol] 144 mmol/L 134 - 146 mmol/L [facility] Urea nitrogen [Mass/Vol] 38 mg/dL High 5 - 23 mg/dL [facility] Glucose Glucometer (BldC) [M ass/Vol]on 01-01-2024 Glucose [Mass/Vol] 241 mg/dL High 65-99 [facility] Glucose [Mass/Vol] 241 mg/dL High 65 - 99 mg/dL [facility] Interpretation and review of laboratory results Abnormal [facility] Glucose [Mass/Vol] 154 mg/dL High 65-99 [facility] Glucose [Mass/Vol] 154 mg/dL High 65 - 99 mg/dL [facility] Interpretation and review of laboratory results Abnormal [facility] Glucose [Mass/Vol] 207 mg/dL High 65-99 [facility] Glucose [Mass/Vol] 207 mg/dL High 65 - 99 mg/dL [facility] Interpretation and review of laboratory results Abnormal [facility] Glucose [Mass/Vol] 208 mg/dL High 65-99 [facility] Glucose [Mass/Vol] 208 mg/dL High 65 - 99 mg/dL [facility] Interpretation and review of laboratory results Abnormal [facility] Glucose [Mass/Vol] 139 mg/dL High 65-99 [facility] Glucose [Mass/Vol] 96 mg/dL Normal 65-99 [facility] Glucose [Mass/Vol] 92 mg/dL Normal 65-99 [facility] Glucose [Mass/Vol] 96 mg/dL 65 - 99 mg/dL [facility] Glucose [Mass/Vol] 92 mg/dL 65 - 99 mg/dL [facility] MAGNESIUMon 01-01-2024 Magnesium [Mass/Vol] 2.1 mg/dL Normal 1.8-2.6 [facility] Comment on above: Performed By: #### C MATHEW, [facility], [address]-3, PINR ####[facility] ([id number])[address] [facility] [address] [place] [address] Magnesiumon 01-01-2024 Magnesium [Mass/Vol] 2.1 mg/dL 1.8 - 2 .6 mg/dL [facility] No Panel Informationon 01-01 [facility] PROTIME AND INRon 01-01-2024 INR Coag (PPP) [Relative time] 2.5 {INR} High 0.8-1.1 [facility] Comment on above: Performed By: #### C CARMEN CARMONA, , PINR ####[facility] ([id number])[address], [address] [address] PT Coag (PPP) [Time] 27.7 s High 9.8-13.2 [facility] Comment on above: Performed By: #### C CARMEN CARMONA, , PINR ####[facility] ([id number])[address], [address] [address] Protime & INRon 01-01-2024 INR Coag (PPP) [Relative time] 2.5 {INR} High [facility] Interpretation and review of laboratory results Abnormal [facility] PT Coag (PPP) [Time] 27.7 s High [facility] CBC AND AUTO DIFFon 12-31-19 ABSOLUTE BASOPHIL 0.1 X10E9/L Normal 0.0-0.2 [facility] Comment on above: Performed By: #### Aquiles CARMONA CMP, , PINR ####[facility] ([id number])[address], [address] [place] [address] ABSOLUTE NEUTROPHIL 7.1 X10E9/L High 1.5-6.6 [facility] Comment on above: Performed By: #### Aquiles CARMONA CMP, , PINR ####[facility] ([id number])[address] [address] Basophils/100 WBC (Bld) 0.8 % Normal [facility] Comment on above: Performed By: #### Aquiles CARMONA CMP, , PINR ####[facility] ([id number])[address], [address] [place] [address] Eosinophils (Bld) [#/Vol] 0.5 10*3/uL High 0.0-0.4 [facility] Comment on above: Performed By: #### Aquiles CARMONA CMP, , PINR ####[facility] ([id number])[address] [address] [address] Eosinophils/100 WBC (Bld) 5.3 % Normal [facility] Comment on above: Performed By: #### C BCA, CMP, , PINR ####[facility] ([id number])[address], [address] [address] Erythrocyte distribution width (RBC) [Ratio] 14.9 % Normal 11.5-15.0 [facility] Comment on above: Performed By: #### C MATHEW, CMP, , PINR ####[facility] ([id number])[address] [address] [address] Hematocrit (Bld) [Volume fraction] 37.5 % Low 39-49 [facility] Comment on above: Performed By: #### C BCA, CMP, , PINR ####[facility] ([id number])[address] [address] [address] Hemoglobin (Bld) [Mass/Vol] 12.7 g/dL Low 13.0-17.0 [facility] Comment on above: Performed By: #### C MATHEW, CMP, , PINR ####[facility] ([id number])[address] [address] Lymphocytes (Bld) [#/Vol] 1.0 10*3/uL Normal 1.0-3.5 [facility] Comment on above: Performed By: #### C BCA, CMP, , PINR ####[facility] ([id number])[address] [address] [address] Lymphocytes/100 WBC (Bld) 10.9 % Normal [facility] Comment on above: Performed By: #### C BCA, CMP, , PINR ####[facility] ([id number])[address], [address], [place] [address] MCH (RBC) [Entitic mass] 31.4 pg Normal 27-34 [facility] Comment on above: Performed By: #### C BCA, CMP, , PINR ####[facility] ([id number])[address], [address], [place] [address] MCHC (RBC) [Mass/Vol] 33.8 g/dL Normal 32-36 [facility] Comment on above: Performed By: #### C BCA, CMP, , PINR ####[facility] ([id number])[address], [place] [address] MCV (RBC) [Entitic vol] 93 fL Normal 80-100 [facility] Comment on above: Performed By: #### C BCA, CMP, , PINR ####[facility] ([id number])[address] [address] Monocytes (Bld) [#/Vol] 0.9 10*3/uL Normal 0-0.9 [facility] Comment on above: Performed By: #### C BCA, CMP, , PINR ####[facility] ([id number])[address], [address] [address] Monocytes/100 WBC (Bld) 9.6 % Normal [facility] Comment on above: Performed By: #### C BCA, CMP, , PINR ####[facility] ([id number])[address] [address] Neutrophils/100 WBC (Bld) 73.4 % Normal [facility] Comment on above: Performed By: #### C BCA, CMP, , PINR ####[facility] ([id number])[address], [address] [place] [address] Platelet mean volume (Bld) [Entitic vol] 8.4 fL Normal 7-12 [facility] Comment on above: Performed By: #### Aquiles CARMONA, CMP, , PINR ####[facility] ([id number])[address] [address] Platelets (Bld) [#/Vol] 205 10*3/uL Normal 150-450 [facility] Comment on above: Performed By: #### Aquiles CARMONA, CMP, , PINR ####[facility] ([id number])[address] [address] RBC COUNT 4.03 X10E12/L Low 4.10-5.70 [facility] Comment on above: Performed By: #### Aquiles BCA, CMP, , PINR ####[facility] ([id number])[address] [address] WBC (Bld) [#/Vol] 9.6 10*3/uL Normal 4.0-11.0 [facility] Comment on above: Performed By: #### Aquiles BCA, CMP, , PINR ####[facility] ([id number])[address] [address] CBC auto differentialon Basophils (Bld) [#/Vol] 0.1 10*3/uL [facility] Basophils/100 WBC (Bld) 0.8 % [facility] Eosinophils (Bld) [#/Vol] 0.5 10*3/uL High [facility] Eosinophils/100 WBC (Bld) 5.3 % [facility] Erythrocyte distribution width (RBC) [Ratio] 14.9 % 11.5 - 15.0 % [facility] Hematocrit (Bld) [Volume fraction] 37.5 % Low 39 - 49 % [facility] Hemoglobin (Bld) [Mass/Vol] 12.7 g/dL Low 13.0 - 17.0 g/dL [facility] Interpretation and review of laboratory results Abnormal [facility] Lymphocytes (Bld) [#/Vol] 1.0 10*3/uL [facility] Lymphocytes/100 WBC (Bld) 10.9 % [facility] MCH (RBC) [Entitic mass] 31.4 pg 27 - 34 pg [facility] MCHC (RBC) [Mass/Vol] 33.8 g/dL 32 - 36 g/dL [facility] MCV (RBC) [Entitic vol] 93 fL 80 - 100 fL [facility] Monocytes (Bld) [#/Vol] 0.9 10*3/uL [facility] Monocytes/100 WBC (Bld) 9.6 % [facility] Neutrophils (Bld) [#/Vol] 7.1 10*3/uL High [facility] Neutrophils/100 WBC (Bld) 73.4 % [facility] Platelet mean volume (Bld) [Entitic vol] 8.4 fL 7 - 12 fL [facility] Platelets (Bld) [#/Vol] 205 10*3/uL [facility] RBC (Bld) [#/Vol] 4.03 10*6/uL Low [facility] WBC corrected for nucl RBC Auto (Bld) [#/Vol] 9.6 [facility] COMPREHENSIVE METABOLIC PANE Roberto 12-31-2023 Albumin [Mass/Vol] 2.4 g/dL Low 3.2-5.3 [facility] Comment on above: Performed By: #### C BCA, CMP, [address]98[address]-2, PINR ####[facility] ([id number])[address] [facility] [address] [place] [address] ALP [Catalytic activity/Vol] 298 U/L High 39-130 [facility] Comment on above: Performed By: #### C BCA, CMP, 479[address]-0, PINR ####[facility] ([id number])[address], [place] [address] ALT [Catalytic activity/Vol] 92 U/L High 0-40 [facility] Comment on above: Performed By: #### C BCA, CMP, , PINR ####[facility] ([id number])[address], [place] [address] Anion gap [Moles/Vol] 8 mmol/L Normal 5-15 [facility] Comment on above: Performed By: #### C BCA, CMP, , PINR ####[facility] ([id number])[address], [address], [place] [address] AST [Catalytic activity/Vol] 66 U/L High 0-41 [facility] Comment on above: Performed By: #### C BCA, CMP, , PINR ####[facility] ([id number])[address], [place] [address] Bilirubin [Mass/Vol] 0.7 mg/dL Normal 0.3-1.2 [facility] Comment on above: Performed By: #### C BCA, CMP, , PINR ####[facility] ([id number])[address], [address], [place] [address] Calcium [Mass/Vol] 7.9 mg/dL Low 8.5-10.5 [facility] Comment on above: Performed By: #### C BCA, CMP, , PINR ####[facility] ([id number])[address], [place] [address] Chloride [Moles/Vol] 103 mmol/L Normal 98-109 [facility] Comment on above: Performed By: #### C BCA, CMP, , PINR ####[facility] ([id number])[address], [place] [address] CO2 [Moles/Vol] 31 mmol/L Normal 22-32 [facility] Comment on above: Performed By: #### C BCA, CMP, , PINR ####[facility] ([id number])[address] [address], [place] [address] Creatinine [Mass/Vol] 0.95 mg/dL Normal 0.60-1.30 [facility] Comment on above: Result Comment: METH OD TRACEABLE TO IDMS STANDARD Performed By: #### C MATHEW CMP, , PINR ####[facility] ([id number])[address] [address] [address] eGFR (CKD-EPI) NON-RACE DEPENDENT >90 Normal >59 [facility] Comment on above: Result Comment: Reported eGFR is based on the CKD-EPI 2020 equation that does not use a race coefficient. Performed By: #### C BCA, CMP, , PINR ####[facility] ([id number])[address] [address], [place] [address] Glucose [Mass/Vol] 114 mg/dL High 65-99 [facility] Comment on above: Performed By: #### C BCA, CMP, , PINR ####[facility] ([id number])[address] [address], [place] [address] Potassium [Moles/Vol] 4.3 mmol/L Normal 3.5-5.0 [facility] Comment on above: Performed By: #### C BCA, CMP, , PINR ####[facility] ([id number])[address] [address] [address] Protein [Mass/Vol] 5.1 g/dL Low 6.0-8.0 [facility] Comment on above: Performed By: #### C BCA, CMP, , PINR ####[facility] ([id number])[address] [address] Sodium [Moles/Vol] 142 mmol/L Normal 134-146 [facility] Comment on above: Performed By: #### C BCA, CMP, 09019-8, PINR ####[facility] ([id number])[address], [address] [place] [address] Urea nitrogen [Mass/Vol] 37 mg/dL High 5-23 [facility] Comment on above: Performed By: #### C BCA, CMP, 32808-6, PINR ####[facility] ([id number])[address], [address] [place] [address] Comprehensive metabolic pane roberto 12-31-2023 Albumin [Mass/Vol] 2.4 g/dL Low 3.2 - 5.3 g/dL [facility] ALP [Catalytic activity/Vol] 298 U/L High 39 - 130 U/L [facility] ALT No additional P-5'-P [Catalytic activity/Vol] 92 U/L High 0 - 40 U/L [facility] Anion gap [Moles/Vol] 8 mmol/L 5 - 15 mmol/L [facility] AST [Catalytic activity/Vol] 66 U/L High 0 - 41 U/L [facility] Bilirubin [Mass/Vol] 0.7 mg/dL 0.3 - 1 .2 mg/dL [facility] Calcium [Mass/Vol] 7.9 mg/dL Low 8.5 - 10. 5 mg/dL [facility] Chloride [Moles/Vol] 103 mmol/L 98 - 10 9 mmol/L [facility] CO2 [Moles/Vol] 31 mmol/L 22 - 32 mmol/L [facility] Creatinine [Mass/Vol] 0.95 mg/dL 0.60 - 1.30 mg/dL [facility] eGFR (CKD-EPI)non-race dependent - PINF [facility] Glucose [Mass/Vol] 114 mg/dL High 65 - 99 mg/dL [facility] Interpretation and review of laboratory results Abnormal [facility] Potassium [Moles/Vol] 4.3 mmol/L 3.5 - 5.0 mmol/L [facility] Protein [Mass/Vol] 5.1 g/dL Low 6.0 - 8.0 g/dL [facility] Sodium [Moles/Vol] 142 mmol/L 134 - 146 mmol/L [facility] Urea nitrogen [Mass/Vol] 37 mg/dL High 5 - 23 mg/dL [facility] Glucose Glucometer (BldC) [M ass/Vol]on 12-31-2023 Glucose [Mass/Vol] 292 mg/dL High 65-99 [facility] Glucose [Mass/Vol] 292 mg/dL High 65 - 99 mg/dL [facility] Interpretation and review of laboratory results Abnormal [facility] Glucose [Mass/Vol] 166 mg/dL High 65-99 [facility] Glucose [Mass/Vol] 166 mg/dL High 65 - 99 mg/dL [facility] Interpretation and review of laboratory results Abnormal [facility] Glucose [Mass/Vol] 150 mg/dL High 65-99 [facility] Glucose [Mass/Vol] 150 mg/dL High 65 - 99 mg/dL [facility] Interpretation and review of laboratory results Abnormal [facility] Glucose [Mass/Vol] 153 mg/dL High 65-99 [facility] Glucose [Mass/Vol] 153 mg/dL High 65 - 99 mg/dL [facility] Interpretation and review of laboratory results Abnormal [facility] Glucose [Mass/Vol] 113 mg/dL High 65-99 [facility] Glucose [Mass/Vol] 113 mg/dL High 65 - 99 mg/dL [facility] Interpretation and review of laboratory results Abnormal [facility] System MAGNESIUMon 12-31-2023 Magnesium [Mass/Vol] 2.1 mg/dL Normal 1.8-2.6 [facility] Comment on above: Performed By: #### C BCA, CMP, 21367-2, PINR ####[facility] ([id number])[address], [address] [place] [address] Magnesiumon 12-31-2023 Magnesium [Mass/Vol] 2.1 mg/dL 1.8 - 2 .6 mg/dL [facility] No Panel Informationon 12-31 [facility] PROTIME AND INRon 12-31-2023 INR Coag (PPP) [Relative time] 2.2 {INR} High 0.8-1.1 [facility] Comment on above: Performed By: #### Aquiles CARMONA CMP, , PINR ####[facility] ([id number])[address], [address] [place] [address] PT Coag (PPP) [Time] 24.4 s High 9.8-13.2 [facility] Comment on above: Performed By: #### Aquiles CARMONA CMP, , PINR ####[facility] ([id number])[address], [address] [place] [address] Protime & INRon 12-31-2023 INR Coag (PPP) [Relative time] 2.2 {INR} High [facility] Interpretation and review of laboratory results Abnormal [facility] PT Coag (PPP) [Time] 24.4 s High [facility] CBC AND AUTO DIFFon 12-30-19 ABSOLUTE BASOPHIL 0.0 X10E9/L Normal 0.0-0.2 [facility] Comment on above: Performed By: #### Aquiles CARMONA CMP, , PINR #### [facility] ([id number]) [address] [address] [place] [address] ABSOLUTE NEUTROPHIL 6.6 X10E9/L Normal 1.5-6.6 [facility] Comment on above: Performed By: #### Aquiles CARMONA CMP, , PINR #### [facility] ([id number]) [address], [address] [place] [address] Basophils/100 WBC (Bld) 0.5 % Normal [facility] Comment on above: Performed By: #### C BCA CMP, , PINR #### [facility] ([id number]) [address], [address] [place] [address] Eosinophils (Bld) [#/Vol] 0.4 10*3/uL Normal 0.0-0.4 [facility] Comment on above: Performed By: #### C BCA, CMP, , PINR #### [facility] ([id number]) [address], [address] [place] [address] Eosinophils/100 WBC (Bld) 4.5 % Normal [facility] Comment on above: Performed By: #### Aquiles CARMONA, CMP, , PINR #### [facility] ([id number]) [address], [address] [place] [address] Erythrocyte distribution width (RBC) [Ratio] 14.7 % Normal 11.5-15.0 [facility] Comment on above: Performed By: #### Aquiles BCA, CMP, , PINR #### [facility] ([id number]) [address], [address] [place] [address] Hematocrit (Bld) [Volume fraction] 36.0 % Low 39-49 [facility] Comment on above: Performed By: #### C BCA, CMP, , PINR #### [facility] ([id number]) [address], [address] [place] [address] Hemoglobin (Bld) [Mass/Vol] 12.2 g/dL Low 13.0-17.0 [facility] Comment on above: Performed By: #### C BCA, CMP, , PINR #### [facility] ([id number]) [address], [address] [place] [address] Lymphocytes (Bld) [#/Vol] 0.5 10*3/uL Low 1.0-3.5 [facility] Comment on above: Performed By: #### C CARMEN CARMONA, , PINR #### [facility] ([id number]) [address] [address] Lymphocytes/100 WBC (Bld) 6.3 % Normal [facility] Comment on above: Performed By: #### C CARMEN CARMONA, , PINR #### [facility] ([id number]) [address] [address] MCH (RBC) [Entitic mass] 31.5 pg Normal 27-34 [facility] Comment on above: Performed By: #### Aquiles CARMONA CMP, , PINR #### [facility] ([id number]) [address] [address] MCHC (RBC) [Mass/Vol] 33.9 g/dL Normal 32-36 [facility] Comment on above: Performed By: #### Aquiles CARMONA CMP, , PINR #### [facility] ([id number]) [address] [address] MCV (RBC) [Entitic vol] 93 fL Normal 80-100 [facility] Comment on above: Performed By: #### Aquiles CARMONA CMP, , PINR #### [facility] ([id number]) [address] [address] Monocytes (Bld) [#/Vol] 0.9 10*3/uL Normal 0-0.9 [facility] Comment on above: Performed By: #### C MATHEW CMP, , PINR #### [facility] ([id number]) [address] [address] Monocytes/100 WBC (Bld) 10.5 % Normal [facility] Comment on above: Performed By: #### C MATHEW, CMP, , PINR #### [facility] ([id number]) [address], [facility] [address] [place] [address] Neutrophils/100 WBC (Bld) 78.2 % Normal [facility] Comment on above: Performed By: #### C MATHEW, CMP, , PINR #### [facility] ([id number]) [address], [facility] [address] [place] [address] Platelet mean volume (Bld) [Entitic vol] 8.4 fL Normal 7-12 [facility] Comment on above: Performed By: #### Aquiles CARMONA, CMP, , PINR #### [facility] ([id number]) [address], [facility] [address] [place] [address] Platelets (Bld) [#/Vol] 159 10*3/uL Normal 150-450 [facility] Comment on above: Performed By: #### Aquiles CARMONA, CMP, , PINR #### [facility] ([id number]) [address], [facility] [address] [place] [address] RBC COUNT 3.88 X10E12/L Low 4.10-5.70 [facility] Comment on above: Performed By: #### Aquiles CARMONA, CMP, , PINR #### [facility] ([id number]) [address], [facility] [address] [place] [address] WBC (Bld) [#/Vol] 8.4 10*3/uL Normal 4.0-11.0 [facility] Comment on above: Performed By: #### Aquiles CARMONA, CMP, , PINR #### [facility] ([id number]) [address], [address] [place] [address] CBC auto differentialon 02-0 5-2024 Basophils (Bld) [#/Vol] 0.0 10*3/uL [facility] Basophils/100 WBC (Bld) 0.5 % [facility] Eosinophils (Bld) [#/Vol] 0.4 10*3/uL [facility] Eosinophils/100 WBC (Bld) 4.5 % [facility] Erythrocyte distribution width (RBC) [Ratio] 14.7 % 11.5 - 15.0 % [facility] Hematocrit (Bld) [Volume fraction] 36.0 % Low 39 - 49 % [facility] Hemoglobin (Bld) [Mass/Vol] 12.2 g/dL Low 13.0 - 17.0 g/dL [facility] Interpretation and review of laboratory results Abnormal [facility] Lymphocytes (Bld) [#/Vol] 0.5 10*3/uL Low [facility] Lymphocytes/100 WBC (Bld) 6.3 % [facility] MCH (RBC) [Entitic mass] 31.5 pg 27 - 34 pg [facility] MCHC (RBC) [Mass/Vol] 33.9 g/dL 32 - 36 g/dL [facility] MCV (RBC) [Entitic vol] 93 fL 80 - 100 fL [facility] Monocytes (Bld) [#/Vol] 0.9 10*3/uL [facility] Monocytes/100 WBC (Bld) 10.5 % [facility] Neutrophils (Bld) [#/Vol] 6.6 10*3/uL [facility] Neutrophils/100 WBC (Bld) 78.2 % [facility] Platelet mean volume (Bld) [Entitic vol] 8.4 fL 7 - 12 fL [facility] Platelets (Bld) [#/Vol] 159 10*3/uL [facility] RBC (Bld) [#/Vol] 3.88 10*6/uL Low [facility] WBC corrected for nucl RBC Auto (Bld) [#/Vol] 8.4 [facility] COMPREHENSIVE METABOLIC PANE Roberto 12-30-2023 Albumin [Mass/Vol] 2.2 g/dL Low 3.2-5.3 [facility] Comment on above: Performed By: #### C BCA, CMP, , PINR #### [facility] ([id number]) [address] [place] [address] ALP [Catalytic activity/Vol] 298 U/L High 39-130 [facility] Comment on above: Performed By: #### C BCA, CMP, , PINR #### [facility] ([id number]) [address], [address] [place] [address] ALT [Catalytic activity/Vol] 93 U/L High 0-40 [facility] Comment on above: Performed By: #### C BCA, CMP, , PINR #### [facility] ([id number]) [address], [address] [place] [address] Anion gap [Moles/Vol] 6 mmol/L Normal 5-15 [facility] Comment on above: Performed By: #### C BCA, CMP, , PINR #### [facility] ([id number]) [address], [address] [place] [address] AST [Catalytic activity/Vol] 81 U/L High 0-41 [facility] Comment on above: Performed By: #### C BCA, CMP, , PINR #### [facility] ([id number]) [address], [address] [place] [address] Bilirubin [Mass/Vol] 0.9 mg/dL Normal 0.3-1.2 [facility] Comment on above: Performed By: #### C BCA, CMP, , PINR #### [facility] ([id number]) [address], [address] [place] [address] Calcium [Mass/Vol] 7.9 mg/dL Low 8.5-10.5 [facility] Comment on above: Performed By: #### C BCA, CMP, , PINR #### [facility] ([id number]) [address], [address] [place] [address] Chloride [Moles/Vol] 103 mmol/L Normal 98-109 [facility] Comment on above: Performed By: #### C BCA, CMP, , PINR #### [facility] ([id number]) [address], [address] [place] [address] CO2 [Moles/Vol] 34 mmol/L High 22-32 [facility] Comment on above: Performed By: #### C BCA, CMP, , PINR #### [facility] ([id number]) [address], [address] [place] [address] Creatinine [Mass/Vol] 1.06 mg/dL Normal 0.60-1.30 [facility] Comment on above: Result Comment: METH OD TRACEABLE TO IDMS STANDARD Performed By: #### C BCA, CMP, , PINR #### [facility] ([id number]) [address], [address] [place] [address] GFR/1.73 sq M.predicted among non-blacks MDRD (S/P/Bld) [Vol rate/Area] 81 mL/min/{1.73_m2} Normal >59 [facility] Comment on above: Result Comment: Reported eGFR is based on the CKD-EPI 1 equation that does not use a race coefficient. Performed By: #### C BCA, CMP, , PINR #### [facility] ([id number]) [address], [address] [place] [address] Glucose [Mass/Vol] 186 mg/dL High 65-99 [facility] Comment on above: Performed By: #### C BCA, CMP, , PINR #### [facility] ([id number]) [address], [address] [place] [address] Potassium [Moles/Vol] 4.6 mmol/L Normal 3.5-5.0 [facility] Comment on above: Performed By: #### C BCA, CMP, , PINR #### [facility] ([id number]) [address], [address] [place] [address] Protein [Mass/Vol] 4.7 g/dL Low 6.0-8.0 [facility] Comment on above: Performed By: #### C BCA, CMP, , PINR #### [facility] ([id number]) [address], [address] [place] [address] Sodium [Moles/Vol] 143 mmol/L Normal 134-146 [facility] Comment on above: Performed By: #### C BCA, CMP, , PINR #### [facility] ([id number]) [address], [address] [place] [address] Urea nitrogen [Mass/Vol] 34 mg/dL High 5-23 [facility] Comment on above: Performed By: #### C BCA, CMP, , PINR #### [facility] ([id number]) [address], [address] [place] [address] Comprehensive metabolic pane roberto 12-30-2023 Albumin [Mass/Vol] 2.2 g/dL Low 3.2 - 5.3 g/dL [facility] ALP [Catalytic activity/Vol] 298 U/L High 39 - 130 U/L [facility] ALT No additional P-5'-P [Catalytic activity/Vol] 93 U/L High 0 - 40 U/L [facility] Anion gap [Moles/Vol] 6 mmol/L 5 - 15 mmol/L [facility] AST [Catalytic activity/Vol] 81 U/L High 0 - 41 U/L [facility] Bilirubin [Mass/Vol] 0.9 mg/dL 0.3 - 1 .2 mg/dL [facility] Calcium [Mass/Vol] 7.9 mg/dL Low 8.5 - 10. 5 mg/dL [facility] Chloride [Moles/Vol] 103 mmol/L 98 - 10 9 mmol/L [facility] CO2 [Moles/Vol] 34 mmol/L High 22 - 32 mmol/L [facility] Creatinine [Mass/Vol] 1.06 mg/dL 0.60 - 1.30 mg/dL [facility] eGFR (CKD-EPI)non-race dependent 81 - PINF [facility] Glucose [Mass/Vol] 186 mg/dL High 65 - 99 mg/dL [facility] Interpretation and review of laboratory results Abnormal [facility] Potassium [Moles/Vol] 4.6 mmol/L 3.5 - 5.0 mmol/L [facility] Protein [Mass/Vol] 4.7 g/dL Low 6.0 - 8.0 g/dL [facility] Sodium [Moles/Vol] 143 mmol/L 134 - 146 mmol/L [facility] Urea nitrogen [Mass/Vol] 34 mg/dL High 5 - 23 mg/dL [facility] Glucose Glucometer (BldC) [M ass/Vol]on 12-30-2023 Glucose [Mass/Vol] 190 mg/dL High 65-99 [facility] Glucose [Mass/Vol] 190 mg/dL High 65 - 99 mg/dL [facility] Interpretation and review of laboratory results Abnormal [facility] System Glucose [Mass/Vol] 297 mg/dL High 65-99 [facility] Glucose [Mass/Vol] 297 mg/dL High 65 - 99 mg/dL [facility] Interpretation and review of laboratory results Abnormal [facility] System Glucose [Mass/Vol] 232 mg/dL High 65-99 [facility] Glucose [Mass/Vol] 232 mg/dL High 65 - 99 mg/dL [facility] Interpretation and review of laboratory results Abnormal [facility] System Glucose [Mass/Vol] 176 mg/dL High 65-99 [facility] Interpretation and review of laboratory results Abnormal [facility] System Glucose [Mass/Vol] 116 mg/dL High 65-99 [facility] Glucose [Mass/Vol] 116 mg/dL High 65 - 99 mg/dL [facility] Interpretation and review of laboratory results Abnormal [facility] MAGNESIUMon 12-30-2023 Magnesium [Mass/Vol] 2.0 mg/dL Normal 1.8-2.6 [facility] Comment on above: Performed By: #### Aquiles CARMONA, CMP, 07850-2, PINR #### [facility] ([id number]) [address], [address] [place] [address] Magnesiumon 12-30-2023 Magnesium [Mass/Vol] 2.0 mg/dL 1.8 - 2 .6 mg/dL [facility] No Panel Informationon 12-30 [facility] PROTIME AND INRon 12-30-2023 INR Coag (PPP) [Relative time] 2.1 {INR} High 0.8-1.1 [facility] Comment on above: Performed By: #### Aquiles CARMONA, [facility], , PINR #### [facility] ([id number]) [address], [address] [place] [address] PT Coag (PPP) [Time] 23.6 s High 9.8-13.2 [facility] Comment on above: Performed By: #### Aquiles CARMONA, [facility], , PINR #### [facility] ([id number]) [address] [place] [address] Protime & INRon 12-30-2023 INR Coag (PPP) [Relative time] 2.1 {INR} High [facility] Interpretation and review of laboratory results Abnormal [facility] PT Coag (PPP) [Time] 23.6 s High [facility] CBC AND AUTO DIFFon 12-29-19 ABSOLUTE BASOPHIL 0.0 X10E9/L Normal 0.0-0.2 [facility] Comment on above: Performed By: #### C MATHEW, CMP, , PINR #### [facility] ([id number]) [address], [address] [place] [address] ABSOLUTE NEUTROPHIL 4.5 X10E9/L Normal 1.5-6.6 [facility] Comment on above: Performed By: #### C BCA, CMP, , PINR #### [facility] ([id number]) [address] [place] [address] Basophils/100 WBC (Bld) 0.4 % Normal [facility] Comment on above: Performed By: #### C MATHEW, CMP, , PINR #### [facility] ([id number]) [address] [place] [address] Eosinophils (Bld) [#/Vol] 0.5 10*3/uL High 0.0-0.4 [facility] Comment on above: Performed By: #### C MATHEW, CMP, , PINR #### [facility] ([id number]) [address] [place] [address] Eosinophils/100 WBC (Bld) 7.1 % Normal [facility] Comment on above: Performed By: #### C BCA, CMP, , PINR #### [facility] ([id number]) [address], [address] [place] [address] Erythrocyte distribution width (RBC) [Ratio] 14.9 % Normal 11.5-15.0 [facility] Comment on above: Performed By: #### C MATHEW, CMP, , PINR #### [facility] ([id number]) [address], [address] [place] [address] Hematocrit (Bld) [Volume fraction] 35.8 % Low 39-49 [facility] Comment on above: Performed By: #### C MATHEW CMP, , PINR #### [facility] ([id number]) [address], [address] [place] [address] Hemoglobin (Bld) [Mass/Vol] 12.2 g/dL Low 13.0-17.0 [facility] Comment on above: Performed By: #### C MATHEW, CMP, , PINR #### [facility] ([id number]) [address], [facility] [address] [place] [address] Lymphocytes (Bld) [#/Vol] 0.6 10*3/uL Low 1.0-3.5 [facility] Comment on above: Performed By: #### C MATHEW, [facility], , PINR #### [facility] ([id number]) [address], [facility] [address] [place] [address] Lymphocytes/100 WBC (Bld) 8.9 % Normal [facility] Comment on above: Performed By: #### C MATHEW, [facility], , PINR #### [facility] ([id number]) [address] [place] [address] MCH (RBC) [Entitic mass] 31.4 pg Normal 27-34 [facility] Comment on above: Performed By: #### C MATHEW CMP, , PINR #### [facility] ([id number]) [address], [address] [place] [address] MCHC (RBC) [Mass/Vol] 34.2 g/dL Normal 32-36 [facility] Comment on above: Performed By: #### C MATHEW, CMP, , PINR #### [facility] ([id number]) [address], [address] [place] [address] MCV (RBC) [Entitic vol] 92 fL Normal 80-100 [facility] Comment on above: Performed By: #### C BCA, CMP, , PINR #### [facility] ([id number]) [address], [address] [place] [address] Monocytes (Bld) [#/Vol] 0.9 10*3/uL Normal 0-0.9 [facility] Comment on above: Performed By: #### Aquiles BCA, CMP, , PINR #### [facility] ([id number]) [address], [address] [place] [address] Monocytes/100 WBC (Bld) 13.3 % Normal [facility] Comment on above: Performed By: #### C BCA, CMP, , PINR #### [facility] ([id number]) [address], [address] [place] [address] Neutrophils/100 WBC (Bld) 70.3 % Normal [facility] Comment on above: Performed By: #### Aquiles BCA, CMP, , PINR #### [facility] ([id number]) [address], [address] [place] [address] Platelet mean volume (Bld) [Entitic vol] 8.2 fL Normal 7-12 [facility] Comment on above: Performed By: #### C BCA, CMP, , PINR #### [facility] ([id number]) [address], [address] [place] [address] Platelets (Bld) [#/Vol] 139 10*3/uL Low 150-450 [facility] Comment on above: Performed By: #### C BCA, CMP, , PINR #### [facility] ([id number]) [address], [address] [place] [address] RBC COUNT 3.90 X10E12/L Low 4.10-5.70 [facility] Comment on above: Performed By: #### C BCA, CMP, 92579-8, PINR #### [facility] ([id number]) [address], [address] [place] [address] WBC (Bld) [#/Vol] 6.4 10*3/uL Normal 4.0-11.0 [facility] Comment on above: Performed By: #### C MATHEW, CARMEN, 46945-4, PINR #### [facility] ([id number]) [address], [address] [place] [address] CBC auto differentialon -0 Basophils (Bld) [#/Vol] 0.0 10*3/uL [facility] Basophils/100 WBC (Bld) 0.4 % [facility] Eosinophils (Bld) [#/Vol] 0.5 10*3/uL High [facility] Eosinophils/100 WBC (Bld) 7.1 % [facility] Erythrocyte distribution width (RBC) [Ratio] 14.9 % 11.5 - 15.0 % [facility] Hematocrit (Bld) [Volume fraction] 35.8 % Low 39 - 49 % [facility] Hemoglobin (Bld) [Mass/Vol] 12.2 g/dL Low 13.0 - 17.0 g/dL [facility] Interpretation and review of laboratory results Abnormal [facility] Lymphocytes (Bld) [#/Vol] 0.6 10*3/uL Low [facility] Lymphocytes/100 WBC (Bld) 8.9 % [facility] MCH (RBC) [Entitic mass] 31.4 pg 27 - 34 pg [facility] MCHC (RBC) [Mass/Vol] 34.2 g/dL 32 - 36 g/dL [facility] MCV (RBC) [Entitic vol] 92 fL 80 - 100 [facility]L [facility] Monocytes (Bld) [#/Vol] 0.9 10*3/uL [facility] Monocytes/100 WBC (Bld) 13.3 % [facility] Neutrophils (Bld) [#/Vol] 4.5 10*3/uL [facility] Neutrophils/100 WBC (Bld) 70.3 % [facility] Platelet mean volume (Bld) [Entitic vol] 8.2 fL 7 - 12 [facility]L [facility] Platelets (Bld) [#/Vol] 139 10*3/uL Low [facility] RBC (Bld) [#/Vol] 3.90 10*6/uL Low [facility] WBC corrected for nucl RBC Auto (Bld) [#/Vol] 6.4 [facility] COMPREHENSIVE METABOLIC PANE Roberto 12-29-2023 Albumin [Mass/Vol] 2.1 g/dL Low 3.2-5.3 [facility] Comment on above: Performed By: #### C MATHEW CMP, , PINR #### [facility] ([id number]) [address], [address] [place] [address] ALP [Catalytic activity/Vol] 192 U/L High 39-130 [facility] Comment on above: Performed By: #### Aquiles BCA, CMP, , PINR #### [facility] ([id number]) [address], [address] [place] [address] ALT [Catalytic activity/Vol] 58 U/L High 0-40 [facility] Comment on above: Performed By: #### C BCA, CMP, , PINR #### [facility] ([id number]) [address], [address] [place] [address] Anion gap [Moles/Vol] 6 mmol/L Normal 5-15 [facility] Comment on above: Performed By: #### C BCA, CMP, , PINR #### [facility] ([id number]) [address], [address] [place] [address] AST [Catalytic activity/Vol] 39 U/L Normal 0-41 [facility] Comment on above: Performed By: #### C BCA, CMP, , PINR #### [facility] ([id number]) [address], [address] [place] [address] Bilirubin [Mass/Vol] 0.8 mg/dL Normal 0.3-1.2 [facility] Comment on above: Performed By: #### C BCA, CMP, , PINR #### [facility] ([id number]) [address], [address] [place] [address] Calcium [Mass/Vol] 7.6 mg/dL Low 8.5-10.5 [facility] Comment on above: Performed By: #### C BCA, CMP, , PINR #### [facility] ([id number]) [address], [address] [place] [address] Chloride [Moles/Vol] 106 mmol/L Normal 98-109 [facility] Comment on above: Performed By: #### C BCA, CMP, , PINR #### [facility] ([id number]) [address], [address] [place] [address] CO2 [Moles/Vol] 31 mmol/L Normal 22-32 [facility] Comment on above: Performed By: #### C BCA, CMP, , PINR #### [facility] ([id number]) [address], [address] [place] [address] Creatinine [Mass/Vol] 0.87 mg/dL Normal 0.60-1.30 [facility] Comment on above: Result Comment: METH OD TRACEABLE TO IDMS STANDARD Performed By: #### C BCA, CMP, , PINR #### [facility] ([id number]) [address], [address] [place] [address] eGFR (CKD-EPI) NON-RACE DEPENDENT >90 Normal >59 [facility] Comment on above: Result Comment: Reported eGFR is based on the CKD-EPI 2020 equation that does not use a race coefficient. Performed By: #### C BCA, CMP, , PINR #### [facility] ([id number]) [address], [address] [place] [address] Glucose [Mass/Vol] 201 mg/dL High 65-99 [facility] Comment on above: Performed By: #### C BCA, CMP, , PINR #### [facility] ([id number]) [address], [address] [place] [address] Potassium [Moles/Vol] 4.2 mmol/L Normal 3.5-5.0 [facility] Comment on above: Performed By: #### C BCA, CMP, , PINR #### [facility] ([id number]) [address], [address] [place] [address] Protein [Mass/Vol] 4.5 g/dL Low 6.0-8.0 [facility] Comment on above: Performed By: #### C BCA, CMP, , PINR #### [facility] ([id number]) [address], [address] [place] [address] Sodium [Moles/Vol] 143 mmol/L Normal 134-146 [facility] Comment on above: Performed By: #### C BCA, CMP, , PINR #### [facility] ([id number]) [address], [address] [place] [address] Urea nitrogen [Mass/Vol] 30 mg/dL High 5-23 [facility] Comment on above: Performed By: #### C BCA, CMP, , PINR #### [facility] ([id number]) [address], [address] [place] [address] Comprehensive metabolic pane roberto 12-29-2023 Albumin [Mass/Vol] 2.1 g/dL Low 3.2 - 5.3 g/dL [facility] ALP [Catalytic activity/Vol] 192 U/L High 39 - 130 U/L [facility] ALT No additional P-5'-P [Catalytic activity/Vol] 58 U/L High 0 - 40 U/L [facility] Anion gap [Moles/Vol] 6 mmol/L 5 - 15 mmol/L [facility] AST [Catalytic activity/Vol] 39 U/L 0 - 41 U/L [facility] Bilirubin [Mass/Vol] 0.8 mg/dL 0.3 - 1 .2 mg/dL [facility] Calcium [Mass/Vol] 7.6 mg/dL Low 8.5 - 10. 5 mg/dL [facility] Chloride [Moles/Vol] 106 mmol/L 98 - 10 9 mmol/L [facility] CO2 [Moles/Vol] 31 mmol/L 22 - 32 mmol/L [facility] Creatinine [Mass/Vol] 0.87 mg/dL 0.60 - 1.30 mg/dL [facility] eGFR (CKD-EPI)non-race dependent - PINF [facility] Glucose [Mass/Vol] 201 mg/dL High 65 - 99 mg/dL [facility] Interpretation and review of laboratory results Abnormal [facility] Potassium [Moles/Vol] 4.2 mmol/L 3.5 - 5.0 mmol/L [facility] Protein [Mass/Vol] 4.5 g/dL Low 6.0 - 8.0 g/dL [facility] Sodium [Moles/Vol] 143 mmol/L 134 - 146 mmol/L [facility] Urea nitrogen [Mass/Vol] 30 mg/dL High 5 - 23 mg/dL [facility] Glucose Glucometer (BldC) [M ass/Vol]on 12-29-2023 Glucose [Mass/Vol] 216 mg/dL High 65-99 [facility] Glucose [Mass/Vol] 216 mg/dL High 65 - 99 mg/dL [facility] Interpretation and review of laboratory results Abnormal [facility] Glucose [Mass/Vol] 151 mg/dL High 65-99 [facility] Glucose [Mass/Vol] 151 mg/dL High 65 - 99 mg/dL [facility] Interpretation and review of laboratory results Abnormal [facility] Glucose [Mass/Vol] 144 mg/dL High 65-99 [facility] Glucose [Mass/Vol] 144 mg/dL High 65 - 99 mg/dL [facility] Interpretation and review of laboratory results Abnormal [facility] Glucose [Mass/Vol] 131 mg/dL High 65-99 [facility] Glucose [Mass/Vol] 131 mg/dL High 65 - 99 mg/dL [facility] Interpretation and review of laboratory results Abnormal [facility] MAGNESIUMon 12-29-2023 Magnesium [Mass/Vol] 1.8 mg/dL Normal 1.8-2.6 [facility] Comment on above: Performed By: #### Aquiles CARMONA CMP, 25817-0, PINR #### [facility] ([id number]) [address], [address] [place] [address] Magnesiumon 12-29-2023 Magnesium [Mass/Vol] 1.8 mg/dL 1.8 - 2 .6 mg/dL [facility] No Panel Informationon 12-29 [facility] PROTIME AND INRon 12-29-2023 INR Coag (PPP) [Relative time] 2.1 {INR} High 0.8-1.1 [facility] Comment on above: Performed By: #### Aquiles CARMONA CMP, 42756-1, PINR #### [facility] ([id number]) [address], [address] [place] [address] PT Coag (PPP) [Time] 23.5 s High 9.8-13.2 [facility] Comment on above: Performed By: #### Aquiles CARMONA CMP, 88627-3, PINR #### [facility] ([id number]) [address], [address] [place] [address] Protime & INRon 12-29-2023 INR Coag (PPP) [Relative time] 2.1 {INR} High [facility] Interpretation and review of laboratory results Abnormal [facility] PT Coag (PPP) [Time] 23.5 s High [facility] CBC AND AUTO DIFFon 12-28-19 ABSOLUTE BASOPHIL 0.0 X10E9/L Normal 0.0-0.2 [facility] Comment on above: Performed By: #### C CARMEN CARMONA, , PINR #### [facility] ([id number]) [address], [address] [place] [address] ABSOLUTE NEUTROPHIL 6.6 X10E9/L Normal 1.5-6.6 [facility] Comment on above: Performed By: #### Aquiles CARMONA CMP, , PINR #### [facility] ([id number]) [address], [address] [place] [address] Basophils/100 WBC (Bld) 0.6 % Normal [facility] Comment on above: Performed By: #### Aquiles CARMONA CMP, , PINR #### [facility] ([id number]) [address], [address] [place] [address] Eosinophils (Bld) [#/Vol] 0.4 10*3/uL Normal 0.0-0.4 [facility] Comment on above: Performed By: #### Aquiles CARMONA CMP, , PINR #### [facility] ([id number]) [address], [address] [place] [address] Eosinophils/100 WBC (Bld) 4.4 % Normal [facility] Comment on above: Performed By: #### Aquiles CARMONA CMP, , PINR #### [facility] ([id number]) [address], [address] [place] [address] Erythrocyte distribution width (RBC) [Ratio] 15.3 % High 11.5-15.0 [facility] Comment on above: Performed By: #### Aquiles CARMONA CMP, , PINR #### [facility] ([id number]) [address], [address] [place] [address] Hematocrit (Bld) [Volume fraction] 40.7 % Normal 39-49 [facility] Comment on above: Performed By: #### C MATHEW, CMP, , PINR #### [facility] ([id number]) [address], [address] [place] [address] Hemoglobin (Bld) [Mass/Vol] 13.6 g/dL Normal 13.0-17.0 [facility] Comment on above: Performed By: #### C MATHEW, CMP, , PINR #### [facility] ([id number]) [address], [address] [place] [address] Lymphocytes (Bld) [#/Vol] 0.5 10*3/uL Low 1.0-3.5 [facility] Comment on above: Performed By: #### C BCA, CMP, , PINR #### [facility] ([id number]) [address], [facility] [address] [place] [address] Lymphocytes/100 WBC (Bld) 6.5 % Normal [facility] Comment on above: Performed By: #### Aquiles BCA, CMP, , PINR #### [facility] ([id number]) [address], [address] [place] [address] MCH (RBC) [Entitic mass] 31.0 pg Normal 27-34 [facility] Comment on above: Performed By: #### C MATHEW, CMP, , PINR #### [facility] ([id number]) [address], [address] [place] [address] MCHC (RBC) [Mass/Vol] 33.4 g/dL Normal 32-36 [facility] Comment on above: Performed By: #### C BCA, CMP, , PINR #### [facility] ([id number]) [address], [address] [place] [address] MCV (RBC) [Entitic vol] 93 fL Normal 80-100 [facility] Comment on above: Performed By: #### C BCA, CMP, , PINR #### [facility] ([id number]) [address], [address] [place] [address] Monocytes (Bld) [#/Vol] 0.9 10*3/uL Normal 0-0.9 [facility] Comment on above: Performed By: #### C BCA, CMP, , PINR #### [facility] ([id number]) [address], [address] [place] [address] Monocytes/100 WBC (Bld) 10.4 % Normal [facility] Comment on above: Performed By: #### C BCA, CMP, , PINR #### [facility] ([id number]) [address], [address] [place] [address] Neutrophils/100 WBC (Bld) 78.1 % Normal [facility] Comment on above: Performed By: #### C BCA, CMP, , PINR #### [facility] ([id number]) [address], [address] [place] [address] Platelet mean volume (Bld) [Entitic vol] 8.4 fL Normal 7-12 [facility] Comment on above: Performed By: #### C BCA, CMP, , PINR #### [facility] ([id number]) [address], [address] [place] [address] Platelets (Bld) [#/Vol] 172 10*3/uL Normal 150-450 [facility] Comment on above: Performed By: #### C BCA, CMP, , PINR #### [facility] ([id number]) [address], [address] [place] [address] RBC COUNT 4.38 X10E12/L Normal 4.10-5.70 [facility] Comment on above: Performed By: #### C MATHEW, CMP, 66058-8, PINR #### [facility] ([id number]) [address], [address] [place] [address] WBC (Bld) [#/Vol] 8.4 10*3/uL Normal 4.0-11.0 [facility] Comment on above: Performed By: #### C MATHEW, CMP, 43519-3, PINR #### [facility] ([id number]) [address], [address] [place] [address] CBC auto differentialon 0 Basophils (Bld) [#/Vol] 0.0 10*3/uL [facility] Basophils/100 WBC (Bld) 0.6 % [facility] Eosinophils (Bld) [#/Vol] 0.4 10*3/uL [facility] Eosinophils/100 WBC (Bld) 4.4 % [facility] Erythrocyte distribution width (RBC) [Ratio] 15.3 % High 11.5 - 15.0 % [facility] Hematocrit (Bld) [Volume fraction] 40.7 % 39 - 49 % [facility] Hemoglobin (Bld) [Mass/Vol] 13.6 g/dL 13.0 - 17.0 g/dL [facility] Interpretation and review of laboratory results Abnormal [facility] Lymphocytes (Bld) [#/Vol] 0.5 10*3/uL Low [facility] Lymphocytes/100 WBC (Bld) 6.5 % [facility] MCH (RBC) [Entitic mass] 31.0 pg 27 - 34 pg [facility] MCHC (RBC) [Mass/Vol] 33.4 g/dL 32 - 36 g/dL [facility] MCV (RBC) [Entitic vol] 93 fL 80 - 100 fL [facility] Monocytes (Bld) [#/Vol] 0.9 10*3/uL [facility] Monocytes/100 WBC (Bld) 10.4 % [facility] Neutrophils (Bld) [#/Vol] 6.6 10*3/uL [facility] Neutrophils/100 WBC (Bld) 78.1 % [facility] Platelet mean volume (Bld) [Entitic vol] 8.4 fL 7 - 12 fL [facility] Platelets (Bld) [#/Vol] 172 10*3/uL [facility] RBC (Bld) [#/Vol] 4.38 10*6/[facility]L [facility] WBC corrected for nucl RBC Auto (Bld) [#/Vol] 8.4 [facility] COMPREHENSIVE METABOLIC PANE Roberto 12-28-2023 Albumin [Mass/Vol] 2.2 g/dL Low 3.2-5.3 [facility] Comment on above: Performed By: #### C BCA, CMP, , PINR #### [facility] ([id number]) [address], [address] [place] [address] ALP [Catalytic activity/Vol] 221 U/L High 39-130 [facility] Comment on above: Performed By: #### C BCA, CMP, , PINR #### [facility] ([id number]) [address], [address] [place] [address] ALT [Catalytic activity/Vol] 68 U/L High 0-40 [facility] Comment on above: Performed By: #### C BCA, CMP, , PINR #### [facility] ([id number]) [address], [address] [place] [address] Anion gap [Moles/Vol] 8 mmol/L Normal 5-15 [facility] Comment on above: Performed By: #### C BCA, CMP, , PINR #### [facility] ([id number]) [address], [address] [place] [address] AST [Catalytic activity/Vol] 51 U/L High 0-41 [facility] Comment on above: Performed By: #### C BCA, CMP, , PINR #### [facility] ([id number]) [address], [address] [place] [address] Bilirubin [Mass/Vol] 1.0 mg/dL Normal 0.3-1.2 [facility] Comment on above: Performed By: #### C BCA, CMP, , PINR #### [facility] ([id number]) [address], [address] [place] [address] Calcium [Mass/Vol] 7.9 mg/dL Low 8.5-10.5 [facility] Comment on above: Performed By: #### C BCA, CMP, , PINR #### [facility] ([id number]) [address], [address] [place] [address] Chloride [Moles/Vol] 106 mmol/L Normal 98-109 [facility] Comment on above: Performed By: #### C BCA, CMP, , PINR #### [facility] ([id number]) [address], [address] [place] [address] CO2 [Moles/Vol] 28 mmol/L Normal 22-32 [facility] Comment on above: Performed By: #### C BCA, CMP, , PINR #### [facility] ([id number]) [address], [address] [place] [address] Creatinine [Mass/Vol] 0.86 mg/dL Normal 0.60-1.30 [facility] Comment on above: Result Comment: METH OD TRACEABLE TO IDMS STANDARD Performed By: #### C BCA, CMP, , PINR #### [facility] ([id number]) [address], [address] [place] [address] eGFR (CKD-EPI) NON-RACE DEPENDENT >90 Normal >59 [facility] Comment on above: Result Comment: Reported eGFR is based on the CKD-EPI 2020 equation that does not use a race coefficient. Performed By: #### C BCA, CMP, , PINR #### [facility] ([id number]) [address], [facility] [address] [place] [address] Glucose [Mass/Vol] 157 mg/dL High 65-99 [facility] Comment on above: Performed By: #### C BCA, CMP, , PINR #### [facility] ([id number]) [address], [address] [address] Potassium [Moles/Vol] 4.3 mmol/L Normal 3.5-5.0 [facility] Comment on above: Performed By: #### C BCA, CMP, , PINR #### [facility] ([id number]) [address] [address] Protein [Mass/Vol] 5.0 g/dL Low 6.0-8.0 [facility] Comment on above: Performed By: #### C BCA, CMP, , PINR #### [facility] ([id number]) [address] [address] Sodium [Moles/Vol] 142 mmol/L Normal 134-146 [facility] Comment on above: Performed By: #### C BCA, CMP, , PINR #### [facility] ([id number]) [address] [address] [place] [address] Urea nitrogen [Mass/Vol] 24 mg/dL High 5-23 [facility] Comment on above: Performed By: #### C BCA, CMP, , PINR #### [facility] ([id number]) [address] [facility], [address] [place] [address] Comprehensive metabolic pane roberto 12-28-2023 Albumin [Mass/Vol] 2.2 g/dL Low 3.2 - 5.3 g/dL [facility] ALP [Catalytic activity/Vol] 221 U/L High 39 - 130 U/L [facility] ALT No additional P-5'-P [Catalytic activity/Vol] 68 U/L High 0 - 40 U/L [facility] Anion gap [Moles/Vol] 8 mmol/L 5 - 15 mmol/L [facility] AST [Catalytic activity/Vol] 51 U/L High 0 - 41 U/L [facility] Bilirubin [Mass/Vol] 1.0 mg/dL 0.3 - 1 .2 mg/dL [facility] Calcium [Mass/Vol] 7.9 mg/dL Low 8.5 - 10. 5 mg/dL [facility] Chloride [Moles/Vol] 106 mmol/L 98 - 10 9 mmol/L [facility] CO2 [Moles/Vol] 28 mmol/L 22 - 32 mmol/L [facility] Creatinine [Mass/Vol] 0.86 mg/dL 0.60 - 1.30 mg/dL [facility] eGFR (CKD-EPI)non-race dependent - PINF [facility] Glucose [Mass/Vol] 157 mg/dL High 65 - 99 mg/dL [facility] Potassium [Moles/Vol] 4.3 mmol/L 3.5 - 5.0 mmol/L [facility] Protein [Mass/Vol] 5.0 g/dL Low 6.0 - 8.0 g/dL [facility] Sodium [Moles/Vol] 142 mmol/L 134 - 146 mmol/L [facility] Urea nitrogen [Mass/Vol] 24 mg/dL High 5 - 23 mg/dL [facility] Glucose Glucometer (BldC) [M ass/Vol]on 12-28-2023 Glucose [Mass/Vol] 167 mg/dL High 65-99 [facility] Glucose [Mass/Vol] 167 mg/dL High 65 - 99 mg/dL [facility] Interpretation and review of laboratory results Abnormal [facility] Glucose [Mass/Vol] 77 mg/dL Normal 65-99 [facility] Glucose [Mass/Vol] 77 mg/dL 65 - 99 mg/dL [facility] Glucose [Mass/Vol] 115 mg/dL High 65-99 [facility] Glucose [Mass/Vol] 115 mg/dL High 65 - 99 mg/dL [facility] Interpretation and review of laboratory results Abnormal [facility] Glucose [Mass/Vol] 135 mg/dL High 65-99 [facility] Glucose [Mass/Vol] 135 mg/dL High 65 - 99 mg/dL [facility] Interpretation and review of laboratory results Abnormal [facility] System Lactate (P ge) [Moles/Vol]o n 12-28-2023 LACTATE W/REFLEX 1.5 mmol/L Normal 0.4-2.0 [facility] Comment on above: Result Comment: Result did not trigger repeat Lactate, re-order if needed. Performed By: #### C MATHEW, [facility], [address]891-8, PINR #### [facility] ([id number]) [address], [address] [place] [address] [facility] Lactate w/ Reflexon 12-28-19 24 Lactate (P ge) [Moles/Vol] 1.5 mmol/L 0.4 - 2.0 mmol/L [facility] MAGNESIUMon 12-28-2023 Magnesium [Mass/Vol] 1.6 mg/dL Low 1.8-2.6 [facility] Comment on above: Performed By: #### C [facility], [facility], [id number], PINR #### [facility] ([id number]) [address], [address] [place] [address] Magnesiumon 12-28-2023 Magnesium [Mass/Vol] 1.6 mg/dL Low 1.8 - 2 .6 mg/dL [facility] No Panel Informationon 12-28 Interpretation and review of laboratory results Abnormal [facility] System PROTIME AND INRon 12-28-2023 INR Coag (PPP) [Relative time] 1.9 {INR} High 0.8-1.1 [facility] Comment on above: Performed By: #### C CARMEN CARMONA, , PINR #### [facility] ([id number]) [address], [address] [place] [address] PT Coag (PPP) [Time] 21.4 s High 9.8-13.2 [facility] Comment on above: Performed By: #### C CARMEN CARMONA, , PINR #### [facility] ([id number]) [address], [address] [place] [address] Protime & INRon 12-28-2023 INR Coag (PPP) [Relative time] 1.9 {INR} High [facility] Interpretation and review of laboratory results Abnormal [facility] PT Coag (PPP) [Time] 21.4 s High [facility] CBC AND AUTO DIFFon 12-27-19 24 ABSOLUTE BASOPHIL 0.1 X10E9/L Normal 0.0-0.2 [facility] Comment on above: Performed By: #### Aquiles CARMONA CMP, , PINR #### [facility] ([id number]) [address], [address] [place] [address] ABSOLUTE NEUTROPHIL 8.2 X10E9/L High 1.5-6.6 [facility] Comment on above: Performed By: #### C CARMEN CARMONA, , PINR #### [facility] ([id number]) [address], [address] [place] [address] Basophils/100 WBC (Bld) 0.8 % Normal [facility] Comment on above: Performed By: #### Aquiles CARMONA CMP, , PINR #### [facility] ([id number]) [address], [address] [place] [address] Eosinophils (Bld) [#/Vol] 0.4 10*3/uL Normal 0.0-0.4 [facility] Comment on above: Performed By: #### C CARMEN CARMONA, , PINR #### [facility] ([id number]) [address], [facility] [address] [place] [address] Eosinophils/100 WBC (Bld) 3.5 % Normal [facility] Comment on above: Performed By: #### C MATHEW CMP, , PINR #### [facility] ([id number]) [address], [facility] [address] [place] [address] Erythrocyte distribution width (RBC) [Ratio] 15.1 % High 11.5-15.0 [facility] Comment on above: Performed By: #### Aquiles CARMONA CMP, , PINR #### [facility] ([id number]) [address], [address] [address] Hematocrit (Bld) [Volume fraction] 39.9 % Normal 39-49 [facility] Comment on above: Performed By: #### Aquiles CARMONA CMP, , PINR #### [facility] ([id number]) [address], [facility] [address] [place] [address] Hemoglobin (Bld) [Mass/Vol] 13.5 g/dL Normal 13.0-17.0 [facility] Comment on above: Performed By: #### C MATHEW, CMP, , PINR #### [facility] ([id number]) [address] [address] [place] [address] Lymphocytes (Bld) [#/Vol] 0.9 10*3/uL Low 1.0-3.5 [facility] Comment on above: Performed By: #### Aquiles CARMONA, CMP, , PINR #### [facility] ([id number]) [address], [address] [place] [address] Lymphocytes/100 WBC (Bld) 8.2 % Normal [facility] Comment on above: Performed By: #### C BCA, CMP, , PINR #### [facility] ([id number]) [address], [address] [place] [address] MCH (RBC) [Entitic mass] 31.1 pg Normal 27-34 [facility] Comment on above: Performed By: #### C BCA, CMP, , PINR #### [facility] ([id number]) [address], [address] [place] [address] MCHC (RBC) [Mass/Vol] 33.9 g/dL Normal 32-36 [facility] Comment on above: Performed By: #### Aquiles BCA, CMP, , PINR #### [facility] ([id number]) [address], [address] [place] [address] MCV (RBC) [Entitic vol] 92 fL Normal 80-100 [facility] Comment on above: Performed By: #### Aquiles BCA, CMP, , PINR #### [facility] ([id number]) [address], [address] [place] [address] Monocytes (Bld) [#/Vol] 1.1 10*3/uL High 0-0.9 [facility] Comment on above: Performed By: #### C BCA, CMP, , PINR #### [facility] ([id number]) [address], [address] [place] [address] Monocytes/100 WBC (Bld) 10.5 % Normal [facility] Comment on above: Performed By: #### C BCA, CMP, , PINR #### [facility] ([id number]) [address], [address] [place] [address] Neutrophils/100 WBC (Bld) 77.0 % Normal [facility] Comment on above: Performed By: #### Aquiles CARMONA, CMP, , PINR #### [facility] ([id number]) [address], [address] [place] [address] Platelet mean volume (Bld) [Entitic vol] 8.5 fL Normal 7-12 [facility] Comment on above: Performed By: #### Aquiles CARMONA, CMP, , PINR #### [facility] ([id number]) [address], [facility] [address] [place] [address] Platelets (Bld) [#/Vol] 172 10*3/uL Normal 150-450 [facility] Comment on above: Performed By: #### Aquiles CARMONA, CMP, , PINR #### [facility] ([id number]) [address], [address] [place] [address] RBC COUNT 4.35 X10E12/L Normal 4.10-5.70 [facility] Comment on above: Performed By: #### Aquiles CARMONA, CMP, , PINR #### [facility] ([id number]) [address], [facility] [address] [place] [address] WBC (Bld) [#/Vol] 10.6 10*3/uL Normal 4.0-11.0 [facility] Comment on above: Performed By: #### Aquiles BCA, CMP, , PINR #### [facility] ([id number]) [address], [facility] [address] [place] [address] CBC auto differentialon 02-0 Basophils (Bld) [#/Vol] 0.1 10*3/uL [facility] Basophils/100 WBC (Bld) 0.8 % [facility] Eosinophils (Bld) [#/Vol] 0.4 10*3/uL [facility] Eosinophils/100 WBC (Bld) 3.5 % [facility] Erythrocyte distribution width (RBC) [Ratio] 15.1 % High 11.5 - 15.0 % [facility] Hematocrit (Bld) [Volume fraction] 39.9 % 39 - 49 % [facility] Hemoglobin (Bld) [Mass/Vol] 13.5 g/dL 13.0 - 17.0 g/dL [facility] Interpretation and review of laboratory results Abnormal [facility] Lymphocytes (Bld) [#/Vol] 0.9 10*3/uL Low [facility] Lymphocytes/100 WBC (Bld) 8.2 % [facility] MCH (RBC) [Entitic mass] 31.1 pg 27 - 34 pg [facility] MCHC (RBC) [Mass/Vol] 33.9 g/dL 32 - 36 g/dL [facility] MCV (RBC) [Entitic vol] 92 fL 80 - 100 fL [facility] Monocytes (Bld) [#/Vol] 1.1 10*3/uL High [facility] Monocytes/100 WBC (Bld) 10.5 % [facility] Neutrophils (Bld) [#/Vol] 8.2 10*3/uL High [facility] Neutrophils/100 WBC (Bld) 77.0 % [facility] Platelet mean volume (Bld) [Entitic vol] 8.5 fL 7 - 12 fL [facility] Platelets (Bld) [#/Vol] 172 10*3/uL [facility] RBC (Bld) [#/Vol] 4.35 10*6/uL [facility] WBC corrected for nucl RBC Auto (Bld) [#/Vol] 10.6 [facility] COMPREHENSIVE METABOLIC PANE Roberto 12-27-2023 Albumin [Mass/Vol] 2.1 g/dL Low 3.2-5.3 [facility] Comment on above: Performed By: #### C BCA, CMP, [id number], PINR #### [facility] ([id number]) [address] [place] [address] ALP [Catalytic activity/Vol] 184 U/L High 39-130 [facility] Comment on above: Performed By: #### C BCA, CMP, , PINR #### [facility] ([id number]) [address], [address] [place] [address] ALT [Catalytic activity/Vol] 56 U/L High 0-40 [facility] Comment on above: Performed By: #### C BCA, CMP, , PINR #### [facility] ([id number]) [address], [address] [place] [address] Anion gap [Moles/Vol] 5 mmol/L Normal 5-15 [facility] Comment on above: Performed By: #### C BCA, CMP, , PINR #### [facility] ([id number]) [address], [address] [place] [address] AST [Catalytic activity/Vol] 28 U/L Normal 0-41 [facility] Comment on above: Performed By: #### C MATHEW, CMP, , PINR #### [facility] ([id number]) [address], [address] [place] [address] Bilirubin [Mass/Vol] 1.2 mg/dL Normal 0.3-1.2 [facility] Comment on above: Performed By: #### C BCA, CMP, , PINR #### [facility] ([id number]) [address], [address] [place] [address] Calcium [Mass/Vol] 7.7 mg/dL Low 8.5-10.5 [facility] Comment on above: Performed By: #### C BCA, CMP, , PINR #### [facility] ([id number]) [address], [address] [place] [address] Chloride [Moles/Vol] 111 mmol/L High 98-109 [facility] Comment on above: Performed By: #### C MATHEW CMP, , PINR #### [facility] ([id number]) [address] [address] [place] [address] CO2 [Moles/Vol] 25 mmol/L Normal 22-32 [facility] Comment on above: Performed By: #### C MATHEW CMP, , PINR #### [facility] ([id number]) [address], [address] [place] [address] Creatinine [Mass/Vol] 0.94 mg/dL Normal 0.60-1.30 [facility] Comment on above: Result Comment: METH OD TRACEABLE TO IDMS STANDARD Performed By: #### C CARMEN CARMONA, , PINR #### [facility] ([id number]) [address], [address] [place] [address] eGFR (CKD-EPI) NON-RACE DEPENDENT >90 Normal >59 [facility] Comment on above: Result Comment: Reported eGFR is based on the CKD-EPI 2020 equation that does not use a race coefficient. Performed By: #### C CARMEN CARMONA, , PINR #### [facility] ([id number]) [address], [address] [place] [address] Glucose [Mass/Vol] 112 mg/dL High 65-99 [facility] Comment on above: Performed By: #### C MATHEW CMP, , PINR #### [facility] ([id number]) [address] [address] [place] [address] Potassium [Moles/Vol] 4.2 mmol/L Normal 3.5-5.0 [facility] Comment on above: Performed By: #### C BCA, CMP, , PINR #### [facility] ([id number]) [address], [address] [place] [address] Protein [Mass/Vol] 5.0 g/dL Low 6.0-8.0 [facility] Comment on above: Performed By: #### C BCA, CMP, , PINR #### [facility] ([id number]) [address], [address] [place] [address] Sodium [Moles/Vol] 141 mmol/L Normal 134-146 [facility] Comment on above: Performed By: #### C BCA, CMP, , PINR #### [facility] ([id number]) [address], [address] [place] [address] Urea nitrogen [Mass/Vol] 28 mg/dL High 5-23 [facility] Comment on above: Performed By: #### C BCA, CMP, , PINR #### [facility] ([id number]) [address], [address] [place] [address] Cardiac echo study Procedure Ordered By: Cullen Marques on 12-27-2023 Aortic root 3.60 [facility] Work Phone: AV mean gradient 4.00 mmHg [facility] Work Phone: AV peak gradient 7.84 mmHg [facility] Work Phone: AV peak amilcar 140.00 cm/s [facility] Work Phone: AV valve area 7.02 cm2 [facility] Work Phone: AV Velocity Ratio 0.65 [facility] Work Phone: AV VTI 23.60 cm [facility] Work Phone: E wave deceleration time 154.00 msec [facility] Work Phone: E/A ratio 2.77 [facility] Work Phone: Energy loss index 9.98 [facility] Work Phone: FS 25 % 28 - 44 % [facility] [employer] [facility] Work Phone: Interventricular Septum Diastolic Thickness by 2D 11 cm [facility] [employer] System Work Phone: IVS 1.10 cm 0.6 - 1.1 cm [facility] Work Phone: LA size 4.90 cm [facility] [employer] [facility] Work Phone: LA volume 61.40 cm3 [facility] [employer] System Work Phone: LA Volume Index 26.5 mL/m2 [facility] [employer] Work Phone: Left Ventricle Mass [id number] g [facility] Work Phone: LV ESV A2C 45.80 mL [facility] [employer] [facility] Work Phone: LV ESV A4C 74.30 mL [facility] [employer] [facility] Work Phone: LV RWT 2D 40.00 [facility] [employer] [facility] Work Phone: LVIDd 5.50 cm 7.16 - 9.95 cm [facility] [employer] [facility] Work Phone: LVIDs 4.10 cm 4.15 - 6.28 cm [facility] [employer] Work Phone: LVOT diameter 3.70 cm [facility] Work Phone: LVOT peak amilcar 0.79 m/s [facility] Work Phone: LVOT peak VTI 15.40 cm [facility] Work Phone: LVOT stroke volume 165.58 ml [facility] [employer] [facility] Work Phone: Mitral Valve Max Velocity 1.29 cm/s [facility] [employer] [facility] Work Phone: MV mean gradient 3.00 mmHg [facility] [employer] [facility] Work Phone: MV Peak A Amilcar 36.40 cm/s [facility] Work Phone: MV Peak E Amilcar 101.00 cm/s [facility] Work Phone: MV peak gradient 6.66 mmHg [facility] Work Phone: MV pressure 1/2 time 45.00 ms [facility] Work Phone: MV valve area by continuity eq 7.96 [facility] Work Phone: MV valve area p 1/2 method 4.89 cm2 [facility] Work Phone: MV VTI 20.80 cm [facility] Work Phone: PV peak gradient 5.57 mmHg [facility] [employer] [facility] Work Phone: PW 1.10 cm 0.6 - 1.1 cm [facility] Work Phone: RA area 20.3 cm2 [facility] Work Phone: RV diastolic dimension (basal) 41.0 mm [facility] Work Phone: TAPSE 1.93 cm [facility] Work Phone: Valve area - Index 3.0 [facility] Work Phone: ZLVIDD -4.28 [facility] Work Phone: ZLVIDS -1.73 [facility] Work Phone: [facility] Work Phone: Cardiac echo study Procedure on 12-27-2023 XC[facility] Radiology Study observation (narrative) [facility] Comprehensive metabolic pane roberto 12-27-2023 Albumin [Mass/Vol] 2.1 g/dL Low 3.2 - 5.3 g/dL [facility] ALP [Catalytic activity/Vol] 184 U/L High 39 - 130 U/L [facility] ALT No additional P-5'-P [Catalytic activity/Vol] 56 U/L High 0 - 40 U/L [facility] Anion gap [Moles/Vol] 5 mmol/L 5 - 15 mmol/L [facility] AST [Catalytic activity/Vol] 28 U/L 0 - 41 U/L [facility] Bilirubin [Mass/Vol] 1.2 mg/dL 0.3 - 1 .2 mg/dL [facility] Calcium [Mass/Vol] 7.7 mg/dL Low 8.5 - 10. 5 mg/dL [facility] Chloride [Moles/Vol] 111 mmol/L High 98 - 10 9 mmol/L [facility] CO2 [Moles/Vol] 25 mmol/L 22 - 32 mmol/L [facility] Creatinine [Mass/Vol] 0.94 mg/dL 0.60 - 1.30 mg/dL [facility] eGFR (CKD-EPI)non-race dependent - PINF [facility] Glucose [Mass/Vol] 112 mg/dL High 65 - 99 mg/dL [facility] Potassium [Moles/Vol] 4.2 mmol/L 3.5 - 5.0 mmol/L [facility] Protein [Mass/Vol] 5.0 g/dL Low 6.0 - 8.0 g/dL [facility] Sodium [Moles/Vol] 141 mmol/L 134 - 146 mmol/L [facility] Urea nitrogen [Mass/Vol] 28 mg/dL High 5 - 23 mg/dL [facility] Glucose Glucometer (BldC) [M ass/Vol]on 12-27-2023 Glucose [Mass/Vol] 130 mg/dL High 65-99 [facility] Glucose [Mass/Vol] 130 mg/dL High 65 - 99 mg/dL [facility] Interpretation and review of laboratory results Abnormal [facility] System Glucose [Mass/Vol] 99 mg/dL Normal 65-99 [facility] Glucose [Mass/Vol] 99 mg/dL 65 - 99 mg/dL [facility] Glucose [Mass/Vol] 107 mg/dL High 65-99 [facility] Glucose [Mass/Vol] 107 mg/dL High 65 - 99 mg/dL [facility] Interpretation and review of laboratory results Abnormal [facility] System Glucose [Mass/Vol] 120 mg/dL High 65-99 [facility] Glucose [Mass/Vol] 120 mg/dL High 65 - 99 mg/dL [facility] Interpretation and review of laboratory results Abnormal [facility] L. pneumophila Ag IA Ql (U)o n 12-27-2023 [facility] LEGIONELLA URINE AGon 2023 L. pneumophila Ag IA Ql (U) LEGIONELLA URINE AG Negative (qualifier value) NEGATIVE FOR L.PNEUMOPHILA SEROGROUP 1 ANTIGEN Normal [facility] Comment on above: Performed By: #### C CARMEN CARMONA, , PINR #### [facility] ([id number]) [address] [place] [address] Legionella antigen, urineon 12-27-2023 L. pneumophila Ag IA Ql (U) Negative Negative^Nega tive [facility] MAGNESIUMon 12-27-2023 Magnesium [Mass/Vol] 1.5 mg/dL Low 1.8-2.6 [facility] Comment on above: Performed By: #### Aquiles CARMONA CMP, , PINR #### [facility] ([id number]) [address] [place] [address] Magnesiumon 12-27-2023 Magnesium [Mass/Vol] 1.5 mg/dL Low 1.8 - 2 .6 mg/dL [facility] No Panel Informationon 12-27 Interpretation and review of laboratory results Abnormal [facility] System PROTIME AND INRon 12-27-2023 INR Coag (PPP) [Relative time] 1.6 {INR} High 0.8-1.1 [facility] Comment on above: Performed By: #### Aquiles CARMONA CMP, , PINR #### [facility] ([id number]) [address], [address] [place] [address] PT Coag (PPP) [Time] 18.7 s High 9.8-13.2 [facility] Comment on above: Performed By: #### Aquiles CARMONA CMP, , PINR #### [facility] ([id number]) [address], [address] [place] [address] Protime & INRon 12-27-2023 INR Coag (PPP) [Relative time] 1.6 {INR} High [facility] Interpretation and review of laboratory results Abnormal [facility] PT Coag (PPP) [Time] 18.7 s High [facility] S PNEUMONIAE AG Uon 12-27-19 24 S. pneumoniae Ag Ql (U) Negative Normal NEG [facility] Comment on above: Performed By: #### Aquiles CARMONA CMP, , PINR #### [facility] ([id number]) [address] [place] [address] S Pneumoniae AG, urineon S. pneumoniae Ag Ql (U) Negative Negative^Nega tive [facility] S. pneumoniae Ag Ql (U)on [facility] Vancomycin trough [Mass/Vol] on 12-27-2023 VANCOMYCIN TROUGH 23.6 ug/mL High 5.0-20.0 [facility] Comment on above: Performed By: #### Aquiles CARMONA CMP, , PINR #### [facility] ([id number]) [address] [place] [address] Interpretation and review of laboratory results Abnormal [facility] Vancomycin, troughon Vancomycin trough [Mass/Vol] 23.6 ug/mL High 5.0 - 20.0 ug/mL [facility] C-reactive proteinon 024 CRP [Mass/Vol] 14.2 mg/dL High 0.000 - 0.744 mg/dL [facility] CBC AND AUTO DIFFon 12-26-19 24 ABSOLUTE BASOPHIL 0.0 X10E9/L Normal 0.0-0.2 [facility] Comment on above: Performed By: #### Aquiles CARMONA CMP, , PINR #### [facility] ([id number]) [address], [address] [place] [address] ABSOLUTE NEUTROPHIL 7.1 X10E9/L High 1.5-6.6 [facility] Comment on above: Performed By: #### C BCA, CMP, , PINR #### [facility] ([id number]) [address], [address] [place] [address] Basophils/100 WBC (Bld) 0.4 % Normal [facility] Comment on above: Performed By: #### C MATHEW, CMP, , PINR #### [facility] ([id number]) [address], [address] [place] [address] Eosinophils (Bld) [#/Vol] 0.3 10*3/uL Normal 0.0-0.4 [facility] Comment on above: Performed By: #### C BCA, [facility], , PINR #### [facility] ([id number]) [address], [address] [place] [address] Eosinophils/100 WBC (Bld) 3.3 % Normal [facility] Comment on above: Performed By: #### C BCA, CMP, , PINR #### [facility] ([id number]) [address], [address] [place] [address] Erythrocyte distribution width (RBC) [Ratio] 15.1 % High 11.5-15.0 [facility] Comment on above: Performed By: #### C MATHEW, CMP, , PINR #### [facility] ([id number]) [address], [address] [place] [address] Hematocrit (Bld) [Volume fraction] 41.1 % Normal 39-49 [facility] Comment on above: Performed By: #### C BCA, CMP, , PINR #### [facility] ([id number]) [address], [address] [place] [address] Hemoglobin (Bld) [Mass/Vol] 14.0 g/dL Normal 13.0-17.0 [facility] Comment on above: Performed By: #### C BCA, CMP, , PINR #### [facility] ([id number]) [address], [address] [place] [address] Lymphocytes (Bld) [#/Vol] 0.7 10*3/uL Low 1.0-3.5 [facility] Comment on above: Performed By: #### Aquiles CARMONA, CMP, , PINR #### [facility] ([id number]) [address] [facility] [address] [place] [address] Lymphocytes/100 WBC (Bld) 7.6 % Normal [facility] Comment on above: Performed By: #### C BCA, CMP, , PINR #### [facility] ([id number]) [address], [address] [place] [address] MCH (RBC) [Entitic mass] 31.1 pg Normal 27-34 [facility] Comment on above: Performed By: #### Aquiles BCA, CMP, , PINR #### [facility] ([id number]) [address], [address] [place] [address] MCHC (RBC) [Mass/Vol] 34.2 g/dL Normal 32-36 [facility] Comment on above: Performed By: #### C BCA, CMP, , PINR #### [facility] ([id number]) [address], [address] [place] [address] MCV (RBC) [Entitic vol] 91 fL Normal 80-100 [facility] Comment on above: Performed By: #### C BCA, CMP, , PINR #### [facility] ([id number]) [address], [address] [place] [address] Monocytes (Bld) [#/Vol] 1.1 10*3/uL High 0-0.9 [facility] Comment on above: Performed By: #### C BCA, CMP, , PINR #### [facility] ([id number]) [address], [address] [place] [address] Monocytes/100 WBC (Bld) 11.7 % Normal [facility] Comment on above: Performed By: #### C BCA, CMP, , PINR #### [facility] ([id number]) [address], [address] [place] [address] Neutrophils/100 WBC (Bld) 77.0 % Normal [facility] Comment on above: Performed By: #### C BCA, CMP, , PINR #### [facility] ([id number]) [address], [address] [place] [address] Platelet mean volume (Bld) [Entitic vol] 8.5 fL Normal 7-12 [facility] Comment on above: Performed By: #### C BCA, CMP, , PINR #### [facility] ([id number]) [address], [address] [place] [address] Platelets (Bld) [#/Vol] 139 10*3/uL Low 150-450 [facility] Comment on above: Performed By: #### C BCA, CMP, , PINR #### [facility] ([id number]) [address], [address] [place] [address] RBC COUNT 4.52 X10E12/L Normal 4.10-5.70 [facility] Comment on above: Performed By: #### C BCA, CMP, , PINR #### [facility] ([id number]) [address], [address] [place] [address] WBC (Bld) [#/Vol] 9.3 10*3/uL Normal 4.0-11.0 [facility] Comment on above: Performed By: #### C BCA, CMP, 56497-5, PINR #### [facility] ([id number]) [address], [address] [place] [address] CBC auto differentialon Basophils (Bld) [#/Vol] 0.0 10*3/uL [facility] Basophils/100 WBC (Bld) 0.4 % [facility] Eosinophils (Bld) [#/Vol] 0.3 10*3/uL [facility] Eosinophils/100 WBC (Bld) 3.3 % [facility] Erythrocyte distribution width (RBC) [Ratio] 15.1 % High 11.5 - 15.0 % [facility] Hematocrit (Bld) [Volume fraction] 41.1 % 39 - 49 % [facility] Hemoglobin (Bld) [Mass/Vol] 14.0 g/dL 13.0 - 17.0 g/dL [facility] Interpretation and review of laboratory results Abnormal [facility] Lymphocytes (Bld) [#/Vol] 0.7 10*3/uL Low [facility] Lymphocytes/100 WBC (Bld) 7.6 % [facility] MCH (RBC) [Entitic mass] 31.1 pg 27 - 34 pg [facility] MCHC (RBC) [Mass/Vol] 34.2 g/dL 32 - 36 g/dL [facility] MCV (RBC) [Entitic vol] 91 fL 80 - 100 fL [facility] Monocytes (Bld) [#/Vol] 1.1 10*3/uL High [facility] Monocytes/100 WBC (Bld) 11.7 % [facility] Neutrophils (Bld) [#/Vol] 7.1 10*3/uL High [facility] Neutrophils/100 WBC (Bld) 77.0 % [facility] Platelet mean volume (Bld) [Entitic vol] 8.5 fL 7 - 12 fL [facility] Platelets (Bld) [#/Vol] 139 10*3/uL Low [facility] RBC (Bld) [#/Vol] 4.52 10*6/uL [facility] WBC corrected for nucl RBC Auto (Bld) [#/Vol] 9.3 [facility] COMPREHENSIVE METABOLIC PANE Roberto 12-26-2023 Albumin [Mass/Vol] 2.3 g/dL Low 3.2-5.3 [facility] Comment on above: Performed By: #### C BCA, CMP, , PINR #### [facility] ([id number]) [address], [address] [place] [address] ALP [Catalytic activity/Vol] 208 U/L High 39-130 [facility] Comment on above: Performed By: #### C BCA, CMP, , PINR #### [facility] ([id number]) [address], [address] [place] [address] ALT [Catalytic activity/Vol] 73 U/L High 0-40 [facility] Comment on above: Performed By: #### C BCA, CMP, , PINR #### [facility] ([id number]) [address], [address] [place] [address] Anion gap [Moles/Vol] 4 mmol/L Low 5-15 [facility] Comment on above: Performed By: #### C BCA, CMP, , PINR #### [facility] ([id number]) [address], [address] [place] [address] AST [Catalytic activity/Vol] 36 U/L Normal 0-41 [facility] Comment on above: Performed By: #### C BCA, CMP, , PINR #### [facility] ([id number]) [address], [address] [address] Bilirubin [Mass/Vol] 1.2 mg/dL Normal 0.3-1.2 [facility] Comment on above: Performed By: #### C BCA, CMP, , PINR #### [facility] ([id number]) [address] [address] Calcium [Mass/Vol] 8.0 mg/dL Low 8.5-10.5 [facility] Comment on above: Performed By: #### C BCA, CMP, , PINR #### [facility] ([id number]) [address] [address] Chloride [Moles/Vol] 110 mmol/L High 98-109 [facility] Comment on above: Performed By: #### C BCA, CMP, , PINR #### [facility] ([id number]) [address] [address] CO2 [Moles/Vol] 24 mmol/L Normal 22-32 [facility] Comment on above: Performed By: #### C BCA, CMP, , PINR #### [facility] ([id number]) [address] [address] Creatinine [Mass/Vol] 0.81 mg/dL Normal 0.60-1.30 [facility] Comment on above: Result Comment: METH OD TRACEABLE TO IDMS STANDARD Performed By: #### C BCA, CMP, , PINR #### [facility] ([id number]) [address] [address] eGFR (CKD-EPI) NON-RACE DEPENDENT >90 Normal >59 [facility] Comment on above: Result Comment: Reported eGFR is based on the CKD-EPI 2020 equation that does not use a race coefficient. Performed By: #### C BCA, CMP, , PINR #### [facility] ([id number]) [address], [address] [place] [address] Glucose [Mass/Vol] 139 mg/dL High 65-99 [facility] Comment on above: Performed By: #### C BCA, CMP, , PINR #### [facility] ([id number]) [address], [address] [place] [address] Potassium [Moles/Vol] 5.2 mmol/L High 3.5-5.0 [facility] Comment on above: Performed By: #### C BCA, CMP, , PINR #### [facility] ([id number]) [address], [address] [place] [address] Protein [Mass/Vol] 5.0 g/dL Low 6.0-8.0 [facility] Comment on above: Performed By: #### C BCA, CMP, , PINR #### [facility] ([id number]) [address], [address] [place] [address] Sodium [Moles/Vol] 138 mmol/L Normal 134-146 [facility] Comment on above: Performed By: #### C BCA, CMP, , PINR #### [facility] ([id number]) [address], [address] [place] [address] Urea nitrogen [Mass/Vol] 36 mg/dL High 5-23 [facility] Comment on above: Performed By: #### C BCA, CMP, , PINR #### [facility] ([id number]) [address], [address] [place] [address] CRP [Mass/Vol]on 12-26-2023 C REACTIVE PROTEIN 14.2 mg/dL High 0.000-0.744 [facility] Comment on above: Performed By: #### C BCA, CMP, , PINR #### [facility] ([id number]) [address] [place] [address] Interpretation and review of laboratory results Abnormal [facility] Comprehensive metabolic pane roberto 12-26-2023 Albumin [Mass/Vol] 2.3 g/dL Low 3.2 - 5.3 g/dL [facility] ALP [Catalytic activity/Vol] 208 U/L High 39 - 130 U/L [facility] ALT No additional P-5'-P [Catalytic activity/Vol] 73 U/L High 0 - 40 U/L [facility] Anion gap [Moles/Vol] 4 mmol/L Low 5 - 15 mmol/L [facility] AST [Catalytic activity/Vol] 36 U/L 0 - 41 U/L [facility] Bilirubin [Mass/Vol] 1.2 mg/dL 0.3 - 1 .2 mg/dL [facility] Calcium [Mass/Vol] 8.0 mg/dL Low 8.5 - 10. 5 mg/dL [facility] Chloride [Moles/Vol] 110 mmol/L High 98 - 10 9 mmol/L [facility] CO2 [Moles/Vol] 24 mmol/L 22 - 32 mmol/L [facility] Creatinine [Mass/Vol] 0.81 mg/dL 0.60 - 1.30 mg/dL [facility] eGFR (CKD-EPI)non-race dependent - PINF [facility] Glucose [Mass/Vol] 139 mg/dL High 65 - 99 mg/dL [facility] Potassium [Moles/Vol] 5.2 mmol/L High 3.5 - 5.0 mmol/L [facility] Protein [Mass/Vol] 5.0 g/dL Low 6.0 - 8.0 g/dL [facility] Sodium [Moles/Vol] 138 mmol/L 134 - 146 mmol/L [facility] Urea nitrogen [Mass/Vol] 36 mg/dL High 5 - 23 mg/dL [facility] ESR Photometric method (Bld) [Velocity]on 12-26-2023 ESR, ERYTHROCYTE SEDIMENTATION RATE 37 mm/h High 0-20 [facility] Comment on above: Performed By: #### 8 2477-1, 22617-6, 1988-03 #### [facility] ([id number]) [address], [address] [place] [address] Interpretation and review of laboratory results Abnormal [facility] System Erythrocyte Sedimentation Ra te (ESR)on 12-26-2023 ESR Photometric method (Bld) [Velocity] 37 mm/h High 0 - 20 mm/h [facility] Glucose Glucometer (BldC) [M ass/Vol]on 12-26-2023 Glucose [Mass/Vol] 201 mg/dL High 65-99 [facility] Glucose [Mass/Vol] 201 mg/dL High 65 - 99 mg/dL [facility] Interpretation and review of laboratory results Abnormal [facility] System Glucose [Mass/Vol] 222 mg/dL High 65-99 [facility] Glucose [Mass/Vol] 222 mg/dL High 65 - 99 mg/dL [facility] Interpretation and review of laboratory results Abnormal [facility] System Glucose [Mass/Vol] 146 mg/dL High 65-99 [facility] Glucose [Mass/Vol] 146 mg/dL High 65 - 99 mg/dL [facility] Interpretation and review of laboratory results Abnormal [facility] System Glucose [Mass/Vol] 103 mg/dL High 65-99 [facility] Glucose [Mass/Vol] 103 mg/dL High 65 - 99 mg/dL [facility] Interpretation and review of laboratory results Abnormal [facility] System HGB A1C (GLYCO-HGB)on 2023 Glucose [Mass/Vol] 163 mg/dL Normal [facility] Comment on above: Performed By: #### C BCA, [facility], [address]8625-8, PINR #### [facility] ([id number]) [address], [address] [place] [address] HbA1c (Bld) [Mass fraction] 7.3 % High 4.4-5.6 [facility] Comment on above: Result Comment: NOTE ADA Guidelines Result HgbA1c Normal : less than 5.7 % Prediabetes : 5.7 % to 6.4 % Diabetes : > 6.4 % Use with caution in patients with abnormal hemoglobin variants as the half-life of red blood cells and in vivo glycation rates are affected. Performed By: #### C CARMEN CARMONA, 78938-8, PINR #### [facility] ([id number]) [address] [place] [address] Hemoglobin A1con 12-26-2023 Average glucose Estimated from glycated hemoglobin (Bld) [Mass/Vol] 163 mg/dL [facility] HbA1c (Bld) [Mass fraction] 7.3 % High 4.4 - 5.6 % [facility] Interpretation and review of laboratory results Abnormal [facility] MAGNESIUMon 12-26-2023 Magnesium [Mass/Vol] 1.5 mg/dL Low 1.8-2.6 [facility] Comment on above: Performed By: #### Aquiles CARMONA CMP, 13675-8, PINR #### [facility] ([id number]) [address] [place] [address] Magnesiumon 12-26-2023 Magnesium [Mass/Vol] 1.5 mg/dL Low 1.8 - 2 .6 mg/dL [facility] Natriuretic peptide B [Mass/ Vol]on 12-26-2023 Natriuretic peptide B (Bld) [Mass/Vol] 373 pg/mL High <100.0 [facility] Comment on above: Performed By: #### 8 2477-1, 33142-0, 1988-03 #### [facility] ([id number]) [address] [place] [address] Interpretation and review of laboratory results Abnormal [facility] Natriuretic peptide B (Bld) [Mass/Vol] 373 pg/mL High NINF - 100.0 pg/mL [facility] System No Panel Informationon 12-26 Interpretation and review of laboratory results Abnormal [facility] System PROTIME AND INRon 12-26-2023 INR Coag (PPP) [Relative time] 2.0 {INR} High 0.8-1.1 [facility] Comment on above: Performed By: #### C MATHEW [facility], 12203-6, PINR #### [facility] ([id number]) [address], [address] [place] [address] PT Coag (PPP) [Time] 22.2 s High 9.8-13.2 [facility] Comment on above: Performed By: #### C [facility]W [facility], , PINR #### [facility] ([id number]) [address], [address] [place] [address] INR Coag (PPP) [Relative time] 2.0 {INR} High 0.8-1.1 [facility] Comment on above: Performed By: #### P INR #### [facility] ([id number]) [address], [address] [place] [address] PT Coag (PPP) [Time] 23.2 s High 9.8-13.2 [facility] Comment on above: Performed By: #### P INR #### [facility] ([id number]) [address], [address] [place] [address] Protime & INRon 12-26-2023 INR Coag (PPP) [Relative time] 2.0 {INR} High [facility] Interpretation and review of laboratory results Abnormal [facility] PT Coag (PPP) [Time] 22.2 s High [facility] INR Coag (PPP) [Relative time] 2.0 {INR} High [facility] Interpretation and review of laboratory results Abnormal [facility] PT Coag (PPP) [Time] 23.2 s High [facility] CBC AND AUTO DIFFon 12-25-19 24 ABSOLUTE BASOPHIL 0.0 X10E9/L Normal 0.0-0.2 [facility] Comment on above: Performed By: #### C BCA, CMP, 3040-3, 33435-0, 69964-5, PINR, 56917-4, 58469-3 #### [facility] ([id number]) [address] [place] [address] ABSOLUTE NEUTROPHIL 9.4 X10E9/L High 1.5-6.6 [facility] Comment on above: Performed By: #### C BCA, CMP, 3040-3, 39865-3, 53843-4, PINR, 18479-2, 71272-8 #### [facility] ([id number]) [address] [place] [address] Basophils/100 WBC (Bld) 0.3 % Normal [facility] Comment on above: Performed By: #### C BCA, CMP, 3040-3, 12543-1, 13272-4, PINR, 41732-5, 58265-4 #### [facility] ([id number]) [address] [place] [address] Eosinophils (Bld) [#/Vol] 0.3 10*3/uL Normal 0.0-0.4 [facility] Comment on above: Performed By: #### C BCA, CMP, 3040-3, 72119-5, 59125-6, PINR, 80367-2, 30081-4 #### [facility] ([id number]) [address] [place] [address] Eosinophils/100 WBC (Bld) 2.3 % Normal [facility] Comment on above: Performed By: #### C BCA, CMP, 3040-3, 76925-1, 21515-2, PINR, 06258-5, 17433-5 #### [facility] ([id number]) [address] [place] [address] [place] [address] Erythrocyte distribution width (RBC) [Ratio] 15.2 % High 11.5-15.0 [facility] Comment on above: Performed By: #### C BCA, CMP, 3040-3, 39786-4, 31723-5, PINR, 86449-0, 90514-5 #### [facility] ([id number]) [address] [place] [address] Hematocrit (Bld) [Volume fraction] 43.1 % Normal 39-49 [facility] Comment on above: Performed By: #### C BCA, CMP, 3040-3, 86492-0, 01233-6, PINR, 37377-9, 18882-9 #### [facility] ([id number]) [address] [place] [address] Hemoglobin (Bld) [Mass/Vol] 14.3 g/dL Normal 13.0-17.0 [facility] Comment on above: Performed By: #### C BCA, CMP, 3040-3, 50290-8, 81877-1, PINR, 30288-1, 12088-8 #### [facility] ([id number]) [address] [place] [address] Lymphocytes (Bld) [#/Vol] 0.7 10*3/uL Low 1.0-3.5 [facility] Comment on above: Performed By: #### C BCA, CMP, 3040-3, 70405-0, 95035-3, PINR, 68674-6, 21645-5 #### [facility] ([id number]) [address] [place] [address] Lymphocytes/100 WBC (Bld) 5.7 % Normal [facility] Comment on above: Performed By: #### C BCA, CMP, 3040-3, 58170-3, 30040-7, PINR, 10784-6, 66381-5 #### [facility] ([id number]) [address] [place] [address] MCH (RBC) [Entitic mass] 30.6 pg Normal 27-34 [facility] Comment on above: Performed By: #### C BCA, CMP, 3040-3, 54424-4, 41492-7, PINR, 14503-7, 63172-1 #### [facility] ([id number]) [address] [place] [address] MCHC (RBC) [Mass/Vol] 33.2 g/dL Normal 32-36 [facility] Comment on above: Performed By: #### C BCA, CMP, 3040-3, 40844-4, 62043-2, PINR, 17957-5, 81303-5 #### [facility] ([id number]) [address] [place] [address] MCV (RBC) [Entitic vol] 92 fL Normal 80-100 [facility] Comment on above: Performed By: #### C BCA, CMP, 3040-3, 78432-8, 51741-7, PINR, 14062-1, 39377-7 #### [facility] ([id number]) [address] [place] [address] Monocytes (Bld) [#/Vol] 1.3 10*3/uL High 0-0.9 [facility] Comment on above: Performed By: #### C BCA, CMP, 3040-3, 11288-6, 44485-2, PINR, 92790-4, 13524-6 #### [facility] ([id number]) [address] [place] [address] Monocytes/100 WBC (Bld) 11.4 % Normal [facility] Comment on above: Performed By: #### C BCA, CMP, 3040-3, 84466-7, 42274-4, PINR, 17015-4, 16339-6 #### [facility] ([id number]) [address] [place] [address] Neutrophils/100 WBC (Bld) 80.3 % Normal [facility] Comment on above: Performed By: #### C BCA, CMP, 3040-3, 90916-7, 69954-9, PINR, 94149-7, 96514-7 #### [facility] ([id number]) [address] [place] [address] Platelet mean volume (Bld) [Entitic vol] 8.4 fL Normal 7-12 [facility] Comment on above: Performed By: #### C BCA, CMP, 3040-3, 25412-5, 65639-6, PINR, 75616-3, 27596-3 #### [facility] ([id number]) [address] [place] [address] Platelets (Bld) [#/Vol] 164 10*3/uL Normal 150-450 [facility] Comment on above: Performed By: #### C BCA, CMP, 3040-3, 01042-6, 45161-4, PINR, 95489-1, 38862-3 #### [facility] ([id number]) [address] [place] [address] RBC COUNT 4.68 X10E12/L Normal 4.10-5.70 [facility] Comment on above: Performed By: #### C BCA, CMP, 3040-3, 40705-5, 16683-4, PINR, 56908-6, 44295-7 #### [facility] ([id number]) [address] [place] [address] WBC (Bld) [#/Vol] 11.7 10*3/uL High 4.0-11.0 [facility] Comment on above: Performed By: #### C BCA, CMP, 3040-3, 77470-1, 96642-0, PINR, 73615-6, 63587-2 #### [facility] ([id number]) [address] [place] [address] COMPREHENSIVE METABOLIC PANE Roberto 12-25-2023 Albumin [Mass/Vol] 2.2 g/dL Low 3.2-5.3 [facility] Comment on above: Performed By: #### C BCA, CMP, 3040-3, 38213-1, 14025-0, PINR, 35477-4, 38885-6 #### [facility] ([id number]) [address] [place] [address] ALP [Catalytic activity/Vol] 243 U/L High 39-130 [facility] Comment on above: Performed By: #### C BCA, CMP, 3040-3, 83240-4, 48040-4, PINR, 30968-0, 60553-7 #### [facility] ([id number]) [address] [place] [address] [place] [address] ALT [Catalytic activity/Vol] 101 U/L High 0-40 [facility] Comment on above: Performed By: #### C BCA, CMP, 3040-3, 95297-7, 81592-3, PINR, 71980-2, 30817-5 #### [facility] ([id number]) [address] [place] [address] [place] [address] Anion gap [Moles/Vol] 7 mmol/L Normal 5-15 [facility] Comment on above: Performed By: #### C BCA, CMP, 3040-3, 90363-8, 21098-3, PINR, 31692-2, 48734-5 #### [facility] ([id number]) [address] [place] [address] [place] [address] AST [Catalytic activity/Vol] 69 U/L High 0-41 [facility] Comment on above: Performed By: #### C BCA, CMP, 3040-3, 52424-0, 61954-7, PINR, 91190-1, 48763-9 #### [facility] ([id number]) [address] [place] [address] Bilirubin [Mass/Vol] 1.3 mg/dL High 0.3-1.2 [facility] Comment on above: Performed By: #### C BCA, CMP, 3040-3, 97266-4, 09612-9, PINR, 53738-7, 05751-7 #### [facility] ([id number]) [address] [place] [address] Calcium [Mass/Vol] 8.1 mg/dL Low 8.5-10.5 [facility] Comment on above: Performed By: #### C BCA, CMP, 3040-3, 08288-0, 67969-4, PINR, 35110-8, 62469-4 #### [facility] ([id number]) [address] [place] [address] Chloride [Moles/Vol] 111 mmol/L High 98-109 [facility] Comment on above: Performed By: #### C BCA, CMP, 3040-3, 97990-5, 81318-3, PINR, 49491-2, 40283-5 #### [facility] ([id number]) [address] [place] [address] CO2 [Moles/Vol] 18 mmol/L Low 22-32 [facility] Comment on above: Performed By: #### C BCA, CMP, 3040-3, 09647-0, 71039-7, PINR, 30158-8, 53609-7 #### [facility] ([id number]) [address] [place] [address] Creatinine [Mass/Vol] 1.01 mg/dL Normal 0.70-1.20 [facility] Comment on above: Result Comment: METH OD TRACEABLE TO IDMS STANDARD Performed By: #### C BCA, CMP, 3040-3, 52237-1, 61971-1, PINR, 70274-4, 13589-7 #### [facility] ([id number]) [address] [place] [address] GFR/1.73 sq M.predicted among non-blacks MDRD (S/P/Bld) [Vol rate/Area] 86 mL/min/{1.73_m2} Normal >59 [facility] Comment on above: Result Comment: Reported eGFR is based on the CKD-EPI 2020 equation that does not use a race coefficient. Performed By: #### C BCA, CMP, 3040-3, 05974-9, 28447-0, PINR, 50570-8, 51727-9 #### [facility] ([id number]) [address] [place] [address] Glucose [Mass/Vol] 146 mg/dL High 65-99 [facility] Comment on above: Performed By: #### C BCA, CMP, 3040-3, 58815-4, 24020-6, PINR, 12323-4, 96157-9 #### [facility] ([id number]) [address] [place] [address]1405 Potassium [Moles/Vol] 4.6 mmol/L Normal 3.5-5.0 [facility] Comment on above: Performed By: #### C BCA, CMP, 3040-3, 31026-1, 38111-2, PINR, 44701-7, 87371-9 #### [facility] ([id number]) [address] [place] [address]2522 Protein [Mass/Vol] 5.7 g/dL Low 6.0-8.0 [facility] Comment on above: Performed By: #### C BCA, CMP, 3040-3, 19303-9, 18247-2, PINR, 11331-9, 67987-8 #### [facility] ([id number]) [address] [place] [address] 99257 Sodium [Moles/Vol] 136 mmol/L Normal 134-146 [facility] Comment on above: Performed By: #### C BCA, CMP, 3040-3, 97810-4, 64565-4, PINR, 35127-1, 58211-3 #### [facility] ([id number]) [address] [place] [address] 76919 Urea nitrogen [Mass/Vol] 41 mg/dL High 5-23 [facility] Comment on above: Performed By: #### C BCA, CMP, 3040-3, 67688-2, 04255-1, PINR, 28365-7, 64247-0 #### [facility] ([id number]) [address] [place] [address]237 Glucose Glucometer (BldC) [M ass/Vol]on 12-25-2023 Glucose [Mass/Vol] 162 mg/dL High 65-99 [facility] MAGNESIUMon 12-25-2023 Magnesium [Mass/Vol] 1.6 mg/dL Low 1.8-2.6 [facility] Comment on above: Performed By: #### C BCA, CMP, 3040-3, 07367-7, 02549-6, PINR, 36452-9, 11252-7 #### [facility] ([id number]) [address] [place] [address] PROTIME AND INRon 12-25-2023 INR Coag (PPP) [Relative time] 2.8 {INR} High 0.8-1.1 [facility] [facility] Comment on above: Performed By: #### C BCA, CMP, 3040-3, 99642-0, 16311-5, PINR, 62106-0, 49696-7 #### [facility] ([id number]) [address] [place] [address] 76681 PT Coag (PPP) [Time] 31.9 s High 9.8-13.2 [facility] Comment on above: Result Comment: NEW REFERENCE RANGE Performed By: #### C BCA, CMP, 3040-3, 16662-7, 03834-5, PINR, 55451-3, 03593-7 #### [facility] ([id number]) [address] [place] [address] 93062 CBC AND AUTO DIFFon 12-24-19 ABSOLUTE BASOPHIL 0.0 X10E9/L Normal 0.0-0.2 [facility] Comment on above: Performed By: #### C BCA, CMP, 3040-3, 77388-0, 41063-5, PINR, 19454-8, 19306-4 #### [facility] ([id number]) [address] [place] [address] 77533 ABSOLUTE NEUTROPHIL 10.0 X10E9/L High 1.5-6.6 [facility] Comment on above: Performed By: #### C BCA, CMP, 3040-3, 14751-7, 34005-2, PINR, 12994-9, 92436-5 #### [facility] ([id number]) [address] [place] [address] 26563 Basophils/100 WBC (Bld) 0.2 % Normal [facility] Comment on above: Performed By: #### C BCA, CMP, 3040-3, 38766-4, 92961-2, PINR, 76484-3, 54739-8 #### [facility] ([id number]) [address] [place] [address] 19158 Eosinophils (Bld) [#/Vol] 0.2 10*3/uL Normal 0.0-0.4 [facility] Comment on above: Performed By: #### C BCA, CMP, 3040-3, 16869-6, 49308-9, PINR, 28588-1, 51785-5 #### [facility] ([id number]) [address] [place] [address] 67391 Eosinophils/100 WBC (Bld) 1.6 % Normal [facility] Comment on above: Performed By: #### C BCA, CMP, 3040-3, 22009-3, 19023-5, PINR, 21369-5, 44125-8 #### [facility] ([id number]) [address] [place] [address] 45967 Erythrocyte distribution width (RBC) [Ratio] 15.3 % High 11.5-15.0 [facility] Comment on above: Performed By: #### C BCA, CMP, 3040-3, 82341-3, 45567-9, PINR, 18761-3, 24951-0 #### [facility] ([id number]) [address] [place] [address] 18692 Hematocrit (Bld) [Volume fraction] 46.7 % Normal 39-49 [facility] Comment on above: Performed By: #### C BCA, CMP, 3040-3, 53641-3, 90582-9, PINR, 76941-7, 12444-4 #### [facility] ([id number]) [address] [place] [address] 99358 Hemoglobin (Bld) [Mass/Vol] 15.9 g/dL Normal 13.0-17.0 [facility] Comment on above: Performed By: #### C BCA, CMP, 3040-3, 97207-7, 56238-1, PINR, 98568-9, 51065-1 #### [facility] ([id number]) [address] [place] [address] 58632 Lymphocytes (Bld) [#/Vol] 0.7 10*3/uL Low 1.0-3.5 [facility] Comment on above: Performed By: #### C BCA, CMP, 3040-3, 15370-2, 37342-2, PINR, 62820-9, 96769-4 #### [facility] ([id number]) [address] [place] [address] 28082 Lymphocytes/100 WBC (Bld) 5.6 % Normal [facility] Comment on above: Performed By: #### C BCA, CMP, 3040-3, 61597-9, 28620-5, PINR, 78981-6, 02537-4 #### [facility] ([id number]) [address] [place] [address] 41825 MCH (RBC) [Entitic mass] 31.2 pg Normal 27-34 [facility] Comment on above: Performed By: #### C BCA, CMP, 3040-3, 16237-8, 81432-7, PINR, 47323-8, 98781-7 #### [facility] ([id number]) [address] [place] [address] 14704 MCHC (RBC) [Mass/Vol] 34.1 g/dL Normal 32-36 [facility] Comment on above: Performed By: #### C BCA, CMP, 3040-3, 17459-1, 56825-2, PINR, 89929-6, 51530-0 #### [facility] ([id number]) [address] [place] [address] 92636 MCV (RBC) [Entitic vol] 92 fL Normal 80-100 [facility] Comment on above: Performed By: #### C BCA, CMP, 3040-3, 73810-0, 27395-1, PINR, 91223-8, 25690-8 #### [facility] ([id number]) [address] [place] [address] 18659 Monocytes (Bld) [#/Vol] 1.1 10*3/uL High 0-0.9 [facility] Comment on above: Performed By: #### C BCA, CMP, 3040-3, 22117-7, 56536-1, PINR, 22068-9, 21741-2 #### [facility] ([id number]) [address] [place] [address] 33390 Monocytes/100 WBC (Bld) 9.3 % Normal [facility] Comment on above: Performed By: #### C BCA, CMP, 3040-3, 25665-1, 09720-5, PINR, 48535-1, 53431-0 #### [facility] ([id number]) [address] [place] [address] 63488 Neutrophils/100 WBC (Bld) 83.3 % Normal [facility] Comment on above: Performed By: #### C BCA, CMP, 3040-3, 55876-1, 60616-9, PINR, 61862-8, 21337-5 #### [facility] ([id number]) [address] [place] [address] 32182 Platelet mean volume (Bld) [Entitic vol] 8.7 fL Normal 7-12 [facility] Comment on above: Performed By: #### C BCA, CMP, 3040-3, 59974-0, 63198-4, PINR, 08581-9, 17001-6 #### [facility] ([id number]) [address] [place] [address] 23523 Platelets (Bld) [#/Vol] 185 10*3/uL Normal 150-450 [facility] Comment on above: Performed By: #### C BCA, CMP, 3040-3, 71932-9, 49370-0, PINR, 07323-3, 70472-7 #### [facility] ([id number]) [address] [place] [address] 26708 RBC COUNT 5.09 X10E12/L Normal 4.10-5.70 [facility] Comment on above: Performed By: #### C BCA, CMP, 3040-3, 00041-4, 86606-8, PINR, 70468-6, 64766-5 #### [facility] ([id number]) [address] [place] [address] 45702 WBC (Bld) [#/Vol] 12.0 10*3/uL High 4.0-11.0 [facility] Comment on above: Performed By: #### C BCA, CMP, 3040-3, 11785-5, 21664-1, PINR, 86675-7, 50825-5 #### [facility] ([id number]) [address] [place] [address] 95589 COMPREHENSIVE METABOLIC PANE Roberto 12-24-2023 Albumin [Mass/Vol] 2.6 g/dL Low 3.2-5.3 [facility] Comment on above: Performed By: #### C BCA, CMP, 3040-3, 83265-0, 31114-9, PINR, 72435-1, 90365-0 #### [facility] ([id number]) [address] [place] [address] 78507 ALP [Catalytic activity/Vol] 127 U/L Normal 39-130 [facility] Comment on above: Performed By: #### C BCA, CMP, 3040-3, 14509-6, 27040-7, PINR, 94769-0, 96787-2 #### [facility] ([id number]) [address] [place] [address] 64053 ALT [Catalytic activity/Vol] 63 U/L High 0-40 [facility] Comment on above: Performed By: #### C BCA, CMP, 3040-3, 63954-9, 17290-3, PINR, 93757-8, 17676-2 #### [facility] ([id number]) [address] [place] [address] 01402 Anion gap [Moles/Vol] 5 mmol/L Normal 5-15 [facility] Comment on above: Performed By: #### C BCA, CMP, 3040-3, 92028-7, 72958-7, PINR, 56662-4, 21496-9 #### [facility] ([id number]) [address] [place] [address] [place] [address] AST [Catalytic activity/Vol] 46 U/L High 0-41 [facility] Comment on above: Performed By: #### C BCA, CMP, 3040-3, 22995-9, 58758-5, PINR, 29652-0, 59356-1 #### [facility] ([id number]) [address] [place] [address] [place] [address] Bilirubin [Mass/Vol] 1.3 mg/dL High 0.3-1.2 [facility] Comment on above: Performed By: #### C BCA, CMP, 3040-3, 96373-1, 59376-1, PINR, 27127-2, 11187-2 #### [facility] ([id number]) [address] [place] [address] [place] [address] Calcium [Mass/Vol] 8.8 mg/dL Normal 8.5-10.5 [facility] Comment on above: Performed By: #### C BCA, CMP, 3040-3, 78757-2, 82001-2, PINR, 58930-6, 91109-2 #### [facility] ([id number]) [address] [place] [address] [place] [address] Chloride [Moles/Vol] 110 mmol/L High 98-109 [facility] Comment on above: Performed By: #### C BCA, CMP, 3040-3, 99007-9, 13895-3, PINR, 02260-9, 96382-8 #### [facility] ([id number]) [address] [place] [address] [place] [address] CO2 [Moles/Vol] 21 mmol/L Low 22-32 [facility] Comment on above: Performed By: #### C BCA, CMP, 3040-3, 42695-5, 92280-2, PINR, 86715-3, 97578-7 #### [facility] ([id number]) [address] [place] [address] 48077 Creatinine [Mass/Vol] 1.16 mg/dL Normal 0.70-1.20 [facility] Comment on above: Result Comment: METH OD TRACEABLE TO IDMS STANDARD Performed By: #### C BCA, CMP, 3040-3, 16028-9, 25285-9, PINR, 85908-5, 51560-0 #### [facility] ([id number]) [address] [place] [address] 51526 GFR/1.73 sq M.predicted among non-blacks MDRD (S/P/Bld) [Vol rate/Area] 73 mL/min/{1.73_m2} Normal >59 [facility] Comment on above: Result Comment: Reported eGFR is based on the CKD-EPI 2020 equation that does not use a race coefficient. Performed By: #### C BCA, CMP, 3040-3, 87581-0, 27245-1, PINR, 01025-4, 55975-6 #### [facility] ([id number]) [address] [place] [address] 79526 Glucose [Mass/Vol] 142 mg/dL High 65-99 [facility] Comment on above: Performed By: #### C BCA, CMP, 3040-3, 98844-1, 42438-2, PINR, 98076-7, 24964-9 #### [facility] ([id number]) [address] [place] [address] 95018 Potassium [Moles/Vol] 4.4 mmol/L Normal 3.5-5.0 [facility] Comment on above: Performed By: #### C BCA, CMP, 3040-3, 66835-8, 40059-6, PINR, 71350-9, 14697-1 #### [facility] ([id number]) [address] [place] [address] 88164 Protein [Mass/Vol] 6.5 g/dL Normal 6.0-8.0 [facility] Comment on above: Performed By: #### C BCA, CMP, 3040-3, 76048-4, 96908-2, PINR, 57576-5, 09592-8 #### [facility] ([id number]) [address] [place] [address] 68868 Sodium [Moles/Vol] 136 mmol/L Normal 134-146 [facility] Comment on above: Performed By: #### C BCA, CMP, 3040-3, 33388-6, 58271-9, PINR, 65342-8, 26377-0 #### [facility] ([id number]) [address] [place] [address] 76737 Urea nitrogen [Mass/Vol] 52 mg/dL High 5-23 [facility] Comment on above: Performed By: #### C BCA, CMP, 3040-3, 08051-9, 61414-5, PINR, 01674-2, 50733-6 #### [facility] ([id number]) [address] [place] [address] 95321 Glucose Glucometer (BldC) [M ass/Vol]on 12-24-2023 Glucose [Mass/Vol] 180 mg/dL High 65-99 [facility] Glucose [Mass/Vol] 147 mg/dL High 65-99 [facility] Glucose [Mass/Vol] 224 mg/dL High 65-99 [facility] MAGNESIUMon 12-24-2023 Magnesium [Mass/Vol] 1.8 mg/dL Normal 1.8-2.6 [facility] Comment on above: Performed By: #### C BCA, CMP, 3040-3, 61594-3, 90993-6, PINR, 76139-8, 05502-7 #### [facility] ([id number]) [address] [place] [address] [place] [address] PROTIME AND INRon 12-24-2023 INR Coag (PPP) [Relative time] 4.5 {INR} Critically high 0.8-1.1 [facility] Comment on above: Performed By: #### C BCA, CMP, 3040-3, 60006-7, 18249-9, PINR, 46559-0, 75108-5 #### [facility] ([id number]) [address] [place] [address] 01338 PT Coag (PPP) [Time] 49.2 s High 9.8-13.2 [facility] Comment on above: Result Comment: NEW REFERENCE RANGE Performed By: #### C BCA, CMP, 3040-3, 47855-2, 14788-1, PINR, 48149-9, 14988-4 #### [facility] ([id number]) [address] [place] [address] [place] [address] BLOOD CULTUREon 12-23-2023 Bacteria identified Aer cx Nom (Bld) SPECIMEN NOTES RIGHT HAND CULTURE RESULTS NO GROWTH 5 DAYS Normal [facility] Comment on above: Performed By: #### C BCA, CMP, 3040-3, 29076-4, 44016-2, PINR, 35712-7, 54565-1 #### [facility] ([id number]) [address] [place] [address] 13880 Bacteria identified Aer cx Nom (Bld) SPECIMEN NOTES LEFT HAND CULTURE RESULTS NO GROWTH 5 DAYS Normal [facility] Comment on above: Performed By: #### C BCA, CMP, 3040-3, 46931-0, 15163-9, PINR, 32620-9, 76321-6 #### [facility] ([id number]) [address] [place] [address] 63647 CBC AND AUTO DIFFon 12-23-19 24 ABSOLUTE BASOPHIL 0.0 X10E9/L Normal 0.0-0.2 [facility] Comment on above: Performed By: #### C BCA, CMP, 3040-3, 67940-8, 34780-1, PINR, 84018-2, 79786-0 #### [facility] ([id number]) [address] [place] [address] 50105 ABSOLUTE NEUTROPHIL 10.9 X10E9/L High 1.5-6.6 [facility] Comment on above: Performed By: #### C BCA, CMP, 3040-3, 14462-9, 42418-3, PINR, 04366-6, 78805-7 #### [facility] ([id number]) [address] [place] [address] 19694 Basophils/100 WBC (Bld) 0.2 % Normal [facility] Comment on above: Performed By: #### C BCA, CMP, 3040-3, 81401-0, 14060-4, PINR, 57320-8, 07100-7 #### [facility] ([id number]) [address] [place] [address] 86839 Eosinophils (Bld) [#/Vol] 0.2 10*3/uL Normal 0.0-0.4 [facility] Comment on above: Performed By: #### C BCA, CMP, 3040-3, 37239-3, 13533-8, PINR, 44378-6, 88555-7 #### [facility] ([id number]) [address] [place] [address] 59849 Eosinophils/100 WBC (Bld) 1.8 % Normal [facility] Comment on above: Performed By: #### C BCA, CMP, 3040-3, 47541-0, 74433-8, PINR, 33289-6, 48495-0 #### [facility] ([id number]) [address] [place] [address] [place] [address] Erythrocyte distribution width (RBC) [Ratio] 15.4 % High 11.5-15.0 [facility] Comment on above: Performed By: #### C BCA, CMP, 3040-3, 67303-4, 09058-5, PINR, 88576-6, 06514-8 #### [facility] ([id number]) [address] [place] [address] 93147 Hematocrit (Bld) [Volume fraction] 50.1 % High 39-49 [facility] Comment on above: Performed By: #### C BCA, CMP, 3040-3, 37987-3, 49597-0, PINR, 11111-3, 11352-2 #### [facility] ([id number]) [address] [place] [address] 63625 Hemoglobin (Bld) [Mass/Vol] 16.8 g/dL Normal 13.0-17.0 [facility] Comment on above: Performed By: #### C BCA, CMP, 3040-3, 19052-3, 64289-6, PINR, 13605-2, 59436-6 #### [facility] ([id number]) [address] [place] [address] 02633 Lymphocytes (Bld) [#/Vol] 1.0 10*3/uL Normal 1.0-3.5 [facility] Comment on above: Performed By: #### C BCA, CMP, 3040-3, 34151-1, 37318-2, PINR, 09533-8, 98605-4 #### [facility] ([id number]) [address] [place] [address] 92843 Lymphocytes/100 WBC (Bld) 7.8 % Normal [facility] Comment on above: Performed By: #### C BCA, CMP, 3040-3, 60632-8, 43977-7, PINR, 71745-6, 31089-7 #### [facility] ([id number]) [address] [place] [address] 23816 MCH (RBC) [Entitic mass] 30.7 pg Normal 27-34 [facility] Comment on above: Performed By: #### C BCA, CMP, 3040-3, 25867-8, 75982-1, PINR, 71365-4, 24801-0 #### [facility] ([id number]) [address] [place] [address] 17008 MCHC (RBC) [Mass/Vol] 33.5 g/dL Normal 32-36 [facility] Comment on above: Performed By: #### C BCA, CMP, 3040-3, 60661-5, 94493-6, PINR, 52320-1, 57288-6 #### [facility] ([id number]) [address] [place] [address] 13633 MCV (RBC) [Entitic vol] 92 fL Normal 80-100 [facility] Comment on above: Performed By: #### C BCA, CMP, 3040-3, 91730-0, 78128-0, PINR, 46213-1, 40901-6 #### [facility] ([id number]) [address] [place] [address] 54351 Monocytes (Bld) [#/Vol] 1.0 10*3/uL High 0-0.9 [facility] Comment on above: Performed By: #### C BCA, CMP, 3040-3, 91024-3, 99509-7, PINR, 17297-5, 19859-3 #### [facility] ([id number]) [address] [place] [address] 64684 Monocytes/100 WBC (Bld) 7.5 % Normal [facility] Comment on above: Performed By: #### C BCA, CMP, 3040-3, 93723-9, 74814-5, PINR, 57664-6, 96226-9 #### [facility] ([id number]) [address] [place] [address] 37669 Neutrophils/100 WBC (Bld) 82.7 % Normal [facility] Comment on above: Performed By: #### C BCA, CMP, 3040-3, 00688-5, 38271-5, PINR, 34381-3, 13849-9 #### [facility] ([id number]) [address] [place] [address] 64862 Platelet mean volume (Bld) [Entitic vol] 8.7 fL Normal 7-12 [facility] Comment on above: Performed By: #### C BCA, CMP, 3040-3, 02072-9, 72834-4, PINR, 99860-3, 30683-4 #### [facility] ([id number]) [address] [place] [address] 78516 Platelets (Bld) [#/Vol] 241 10*3/uL Normal 150-450 [facility] Comment on above: Performed By: #### C BCA, CMP, 3040-3, 81038-7, 37377-5, PINR, 51106-0, 23857-9 #### [facility] ([id number]) [address] [place] [address] 59666 RBC COUNT 5.48 X10E12/L Normal 4.10-5.70 [facility] Comment on above: Performed By: #### C BCA, CMP, 3040-3, 14111-4, 41578-5, PINR, 41098-8, 30931-7 #### [facility] ([id number]) [address] [place] [address] 35579 WBC (Bld) [#/Vol] 13.2 10*3/uL High 4.0-11.0 [facility] Comment on above: Performed By: #### C BCA, CMP, 3040-3, 25375-5, 70805-6, PINR, 53156-5, 52033-4 #### [facility] ([id number]) [address] [place] [address] 44049 COMPREHENSIVE METABOLIC PANE Roberto 12-23-2023 Albumin [Mass/Vol] 3.0 g/dL Low 3.2-5.3 [facility] Comment on above: Performed By: #### C BCA, CMP, 3040-3, 33166-2, 59594-0, PINR, 44932-0, 60912-8 #### [facility] ([id number]) [address] [place] [address] [place] [address] ALP [Catalytic activity/Vol] 150 U/L High 39-130 [facility] Comment on above: Performed By: #### C BCA, CMP, 3040-3, 37514-1, 47778-5, PINR, 20498-7, 27130-1 #### [facility] ([id number]) [address] [place] [address] 75564 ALT [Catalytic activity/Vol] 72 U/L High 0-40 [facility] Comment on above: Performed By: #### C BCA, CMP, 3040-3, 55898-2, 38436-2, PINR, 12363-8, 13436-0 #### [facility] ([id number]) [address] [place] [address] 57186 Anion gap [Moles/Vol] 8 mmol/L Normal 5-15 [facility] Comment on above: Performed By: #### C BCA, CMP, 3040-3, 04113-0, 82488-7, PINR, 25266-7, 70870-2 #### [facility] ([id number]) [address] [place] [address] 59997 AST [Catalytic activity/Vol] 51 U/L High 0-41 [facility] Comment on above: Performed By: #### C BCA, CMP, 3040-3, 80863-5, 60634-0, PINR, 85337-1, 82891-6 #### [facility] ([id number]) [address] [place] [address] 08594 Bilirubin [Mass/Vol] 1.0 mg/dL Normal 0.3-1.2 [facility] Comment on above: Performed By: #### C BCA, CMP, 3040-3, 71911-5, 14911-5, PINR, 42429-2, 02867-6 #### [facility] ([id number]) [address] [place] [address] 81783 Calcium [Mass/Vol] 9.2 mg/dL Normal 8.5-10.5 [facility] Comment on above: Performed By: #### C BCA, CMP, 3040-3, 61126-9, 33190-1, PINR, 99365-8, 50048-5 #### [facility] ([id number]) [address] [place] [address] 81889 Chloride [Moles/Vol] 105 mmol/L Normal 98-109 [facility] Comment on above: Performed By: #### C BCA, CMP, 3040-3, 53497-1, 97113-3, PINR, 63575-4, 34278-1 #### [facility] ([id number]) [address] [place] [address] 72293 CO2 [Moles/Vol] 16 mmol/L Low 22-32 [facility] Comment on above: Performed By: #### C BCA, CMP, 3040-3, 59989-5, 42289-9, PINR, 30108-1, 82552-3 #### [facility] ([id number]) [address] [place] [address] 09029 Creatinine [Mass/Vol] 1.17 mg/dL Normal 0.70-1.20 [facility] Comment on above: Result Comment: METH OD TRACEABLE TO IDMS STANDARD Performed By: #### C BCA, CMP, 3040-3, 21721-9, 97300-5, PINR, 37641-5, 44858-4 #### [facility] ([id number]) [address] [place] [address] 80074 GFR/1.73 sq M.predicted among non-blacks MDRD (S/P/Bld) [Vol rate/Area] 72 mL/min/{1.73_m2} Normal >59 [facility] Comment on above: Result Comment: Reported eGFR is based on the CKD-EPI 2020 equation that does not use a race coefficient. Performed By: #### C BCA, CMP, 3040-3, 30705-8, 47026-6, PINR, 39606-5, 94730-0 #### [facility] ([id number]) [address] [place] [address] 80176 Glucose [Mass/Vol] 109 mg/dL High 65-99 [facility] Comment on above: Performed By: #### C BCA, CMP, 3040-3, 58010-0, 33887-9, PINR, 11189-3, 71385-5 #### [facility] ([id number]) [address] [place] [address] 65274 Potassium [Moles/Vol] 4.4 mmol/L Normal 3.5-5.0 [facility] Comment on above: Performed By: #### C BCA, CMP, 3040-3, 62367-2, 08497-0, PINR, 07416-8, 40982-3 #### [facility] ([id number]) [address] [place] [address] 02899 Protein [Mass/Vol] 7.5 g/dL Normal 6.0-8.0 [facility] Comment on above: Performed By: #### C BCA, CMP, 3040-3, 11590-1, 61056-1, PINR, 17811-2, 40940-1 #### [facility] ([id number]) [address] [place] [address] 39424 Sodium [Moles/Vol] 129 mmol/L Low 134-146 [facility] Comment on above: Performed By: #### C BCA, CMP, 3040-3, 44835-0, 70262-4, PINR, 77697-8, 76031-8 #### [facility] ([id number]) [address] [place] [address] 63433 Urea nitrogen [Mass/Vol] 82 mg/dL High 5-23 [facility] Comment on above: Performed By: #### C BCA, CMP, 3040-3, 54878-9, 94504-0, PINR, 90363-9, 22080-8 #### [facility] ([id number]) [address] [place] [address] 54357 Glucose Glucometer (BldC) [M ass/Vol]on 12-23-2023 Glucose [Mass/Vol] 121 mg/dL High 65-99 [facility] Glucose [Mass/Vol] 153 mg/dL High 65-99 [facility] Glucose [Mass/Vol] 66 mg/dL Normal 65-99 [facility] LIPASEon 12-23-2023 Lipase [Catalytic activity/Vol] 90 U/L High 17-40 [facility] Comment on above: Performed By: #### C BCA, CMP, 3040-3, 24160-2, 35910-0, PINR, 56526-6, 49450-8 #### [facility] ([id number]) [address] [place] [address] 72340 Lactate (P ge) [Moles/Vol]o n 12-23-2023 LACTATE W/REFLEX 1.5 mmol/L Normal 0.4-2.0 [facility] Comment on above: Result Comment: Result did not trigger repeat Lactate, re-order if needed. Performed By: #### C BCA, CMP, 3040-3, 15122-9, 73599-6, PINR, 42034-3, 58048-6 #### [facility] ([id number]) [address] [place] [address] 02874 MAGNESIUMon 12-23-2023 Magnesium [Mass/Vol] 2.1 mg/dL Normal 1.8-2.6 [facility] Comment on above: Performed By: #### C BCA, CMP, 3040-3, 32846-2, 96299-8, PINR, 09122-0, 66461-1 #### [facility] ([id number]) [address] [place] [address] 48366 Natriuretic peptide B [Mass/ Vol]on 12-23-2023 Natriuretic peptide B (Bld) [Mass/Vol] 27 pg/mL Normal <100.0 [facility] Comment on above: Performed By: #### C MATHEW, CMP, 3040-3, 19810-1, 21140-7, PINR, 48551-2, 93232-7 #### [facility] [facility] ([id number]) [address] [place] [address] PROTIME AND INRon 12-23-2023 INR Coag (PPP) [Relative time] 6.2 {INR} Critically high 0.8-1.1 [facility] Comment on above: Performed By: #### C MATHEW, CMP, 3040-3, 08700-2, 49147-4, PINR, 43213-1, 34277-0 #### [facility] ([id number]) [address] [place] [address]7813 PT Coag (PPP) [Time] 67.5 s High 9.8-13.2 [facility] Comment on above: Result Comment: NEW REFERENCE RANGE Performed By: #### C BCA, CMP, 3040-3, 73528-8, 60294-9, PINR, 93742-3, 49339-7 #### [facility] ([id number]) [address] [place] [address] 31439 SUPERFICIAL WOUND CULTUREon 12-23-2023 Bacteria identified Aer cx Nom (Wound) GRAM STAIN >25 WHITE BLOOD CELLS/LPF 1 to 9 SQUAMOUS EPITHELIAL CELLS/LPF MANY GRAM NEGATIVE RODS MANY GRAM POSITIVE COCCI MANY GRAM POSITIVE RODS RESEMBLING DIPHTHEROIDS CULTURE RESULTS MANY MIXED GRAM POSITIVE AND GRAM NEGATIVE ORGANISMS NO STAPHYLOCOCCUS AUREUS ISOLATED NO PSEUDOMONAS AERUGINOSA ISOLATED NO BETA HEMOLYTIC STREPTOCOCCI ISOLATED Normal [facility] Comment on above: Performed By: #### C BCA, CMP, 3040-3, 26552-0, 79004-8, PINR, 03969-8, 77015-4 #### [facility] ([id number]) [address] [place] [address]24 URINALYSISon 12-23-2023 Bilirubin Ql (U) Negative Normal NEG [facility] Comment on above: Performed By: #### C BCA, CMP, 3040-3, 76423-5, 19595-1, PINR, 96396-3, 55905-1 #### [facility] ([id number]) [address] [place] [address] 97610 BLOOD/HGB Negative Normal NEG [facility] Comment on above: Performed By: #### C BCA, CMP, 3040-3, 55732-5, 09236-3, PINR, 06281-8, 99747-7 #### [facility] ([id number]) [address] [place] [address] 01231 Color (U) YELLOW Normal YELLOW [facility] Comment on above: Performed By: #### C BCA, CMP, 3040-3, 46554-1, 82357-3, PINR, 96973-4, 90840-8 #### [facility] ([id number]) [address] [place] [address] 91315 Glucose Ql (U) Negative Normal NEG [facility] Comment on above: Performed By: #### C BCA, CMP, 3040-3, 59273-9, 12655-4, PINR, 89915-2, 48706-8 #### [facility] ([id number]) [address] [place] [address] 99600 Ketones Ql (U) Negative Normal NEG [facility] Comment on above: Performed By: #### C BCA, CMP, 3040-3, 22256-7, 03196-7, PINR, 27017-0, 87966-2 #### [facility] ([id number]) [address] [place] [address] 41897 Leukocyte esterase Test strip Ql (U) Negative Normal NEG [facility] Comment on above: Performed By: #### C BCA, CMP, 3040-3, 33643-7, 42206-8, PINR, 59942-8, 21711-7 #### [facility] ([id number]) [address] [place] [address] 81866 Nitrite Ql (U) Negative Normal NEG [facility] Comment on above: Performed By: #### C BCA, CMP, 3040-3, 29738-3, 86467-1, PINR, 23122-1, 46686-5 #### [facility] ([id number]) [address] [place] [address] 21831 pH (U) 6.0 [pH] Normal 5.0-8.5 [facility] Comment on above: Performed By: #### C BCA, CMP, 3040-3, 41874-2, 28501-0, PINR, 79125-3, 59828-1 #### [facility] ([id number]) [address] [place] [address] 16223 Protein Ql (U) Negative Normal NEG [facility] Comment on above: Performed By: #### C BCA, CMP, 3040-3, 41781-3, 40364-0, PINR, 03819-9, 04764-4 #### [facility] ([id number]) [address] [place] [address] [place] [address] Specific gravity (U) [Rel density] 1.015 Normal 1.003-1.035 [facility] Comment on above: Performed By: #### C BCA, CMP, 3040-3, 73002-3, 26629-0, PINR, 84546-4, 42535-7 #### [facility] ([id number]) [address] [place] [address] 61861 TURBIDITY CLEAR Normal CLEAR [facility] Comment on above: Performed By: #### C BCA, CMP, 3040-3, 42496-3, 77673-7, PINR, 16016-1, 93882-6 #### [facility] ([id number]) [address] [place] [address] 53686 Urobilinogen Qn (U) 0.2 {Efren'U}/dL Normal <1.1 [facility] Comment on above: Performed By: #### C BCA, CMP, 3040-3, 63302-7, 74340-1, PINR, 70333-6, 70765-7 #### [facility] ([id number]) [address] [place] [address] 67284 XR CHEST 1 VWon 12-23-2023 XR CHEST 1 VW XR CHEST 1 VW Clinical history: Leg swelling Views: 1 Comparison: 05/22/2018 Findings/Impression: 1. No acute infiltrate. No volume loss nor consolidation. There is no pleural effusion, pneumothorax, nor volume loss. Heart and mediastinal structures are unremarkable. Pulmonary vasculature stable. 2. No significant change Finalized by Jason Harrison MD on 12/23/2023 9:37 AM Normal [facility] XR TIBIA FIBULA LT MIN 2 VWS on 12-23-2023 XR TIBIA FIBULA LT MIN 2 VWS XR TIBIA FIBULA LT MIN 2 VWS CLINICAL HISTORY: Wound, ulceration Comparison: None Views: 2 view FINDINGS: * No acute fracture, dislocation, erosion or periostitis. * Extensive soft tissue swelling. Soft tissue calcification present. No definite subcutaneous gas. IMPRESSION: * Extensive soft tissue swelling. Findings concerning for cellulitis. Otherwise tibia and fibula are unremarkable. Finalized by Jason Harrison MD on 12/23/2023 9:39 AM Normal [facility] XR TIBIA FIBULA RT MIN 2 VWS on 12-23-2023 XR TIBIA FIBULA RT MIN 2 VWS XR TIBIA FIBULA RT MIN 2 VWS History: Large wound/ulcers on right leg. Concern for possible myelitis. Exam/Technique: AP and lateral views of the right tibia and fibula Comparison: None Findings: There is no evidence of lytic bony lesions, cortical destruction, or abnormal periosteal reaction to suggest changes of acute osteomyelitis on plain radiographs. No other focal bony abnormalities in the shafts of these bones. There is prominent soft tissue irregularity posteriorly that appears to correspond to the reported ulcer/wound. No gross abnormalities are depicted in the knee or ankle joints on these large [id number] images. IMPRESSION: No acute bony abnormalities demonstrated. Finalized by Salinas Carlos MD on 12/23/2023 9:49 AM Normal [facility] aPTT Coag (PPP) [Time]on aPTT Coag (Bld) [Time] 55 s High 26-37 [facility] Comment on above: Result Comment: NEW REFERENCE RANGE Performed By: #### C BCA, CMP, 3040-3, 59499-5, 30912-6, PINR, 60558-0, 89824-5 #### [facility] ([id number]) [address] [place] [address], [place] [address] Office Visiton 06-11-2023 Follow-up visit [id number] Hipolito Daniels 1965 M Date Provider Department Center 06/11/2023 KENDY MITCHELL JUSTIN Costello Family History Problem Relation Age of Onset Hypertension Mother Diabetes Mother Stroke Father Cancer Father Family Status - Relation Status Age at Mother Father Level of Service:81612 SD OFFICE/OUTPATIENT ESTABLISHED LOW MDM 20-29 MIN Reason for Visit and Comments: Follow-up [156645] - 6 month follow up Normal [facility] Follow-Upon 12-11-2022 Follow-Up [id number] Hipolito Daniels 1965 M Date Provider Department Center 12/11/2022 [id number] CASTANEDA JUSTIN [facility] Family History Problem Relation Age of Onset Hypertension Mother Diabetes Mother Stroke Father Cancer Father Family Status - Relation Status Age at Mother Father Level of Service:84689 SD OFFICE/OUTPATIENT ESTABLISHED MOD MDM 30-39 MIN Reason for Visit and Comments: Coronary Artery Disease [187] Hypertension [782710] Atrial Fibrillation [80] Congestive Heart Failure [127] Normal [facility] A1C HEMOGLOBINon 02-08-2022 HbA1c (Bld) [Mass fraction] 6.8 % [facility] Other Glucose - FINGER STICKon Glucose [Mass/Vol] 143 mg/dL [facility] Other HbA1c (Bld) [Mass fraction]o n 02-08-2022 A1C HEMOGLOBIN [employer] Other ECHOCARDIO M/2D COMPLETEon 0 01-24-2022 ECHOCARDIO M/2D COMPLETE Patient: HIPOLITO DANIELS Exam Date: 01/24/2022 : 1965 Gender:M Ordering : ANNALISA SchaeferSiria DYE Admission #: [id number] Family : Order #: [id number] CLICK HERE TO VIEW EXAM ECHOCARDIOGRAM REPORT PROCEDURE: CARDIO PULMONARY ECHOCARDIO M/2D COMP INDICATIONS: Chronic systolic heart failure, Chronic atrial fibrillation COMPARISON: None. DESCRIPTION: COMPLETE ECHOCARDIOGRAM Real-time transthoracic echocardiography with 2D, M-mode, spectral and color flow Doppler performed. QUALITY: Technical quality was adequate. Very frequent PVCs (isolated, couplets, episodes of bigeminy) 71 270# 146/90 HR 93 LEFT VENTRICLE: Normal chamber size. Proximal septal hypertrophy (sigmoid septum). Mild left ventricular hypertrophy. Global left ventricular systolic function is normal. Visual ejection fraction is 55-60%. LV EF: DIASTOLIC: Not adequately assessed due to heart rhythm. ATRIAL SEPTUM: Intact atrial septum. LEFT ATRIUM: Moderate dilatation. RIGHT ATRIUM: Moderate dilatation. RIGHT VENTRICLE: Mild dilatation. Normal right ventricular systolic function. TRICUSPID VALVE: Normal mobility and thickness. No stenosis with trivial regurgitation. Doppler studies reveal mildly (35-45) elevated right sided pressures. RVSP 41 mmHg. MITRAL VALVE: Normal mobility and thickness. No evidence of mitral valve stenosis. Mild mitral annular calcification. Mild mitral regurgitation. AORTIC VALVE: Normal trileaflet appearance. No evidence of aortic valve stenosis. No aortic regurgitation. AORTIC ROOT: Normal diameter and appearance. PULMONIC VALVE: Normal thickness and mobility. No stenosis. Trivial regurgitation. PERICARDIUM: No evidence of pericardial effusion. IVC: Collapses with inspirations. IVC is normal in size. PLEURA: CONCLUSION: 1. Normal ventricular systolic function. LVEF is 55-60%. 2. Mild mitral regurgitation. 3. Mildly elevated right-sided pressures. 4. No pericardial effusion. 5. Moderate biatrial dilatation. Adult Echocardiography Procedure Report Left Ventricle Left Atrium Mitral Valve Right Ventricle Aorta Aortic Valve Peak Velocity (Antegrade Flow): 1.00 m/s AoV Area (Peak Amilcar): 3.27 cm2, 3.27 cm2 Peak Velocity(Antegrade Flow): 1.00 m/s Peak Gradient(Antegrade Flow): 4.04 mm[Hg] Tricuspid Valve Peak Velocity (Regurgitant Flow): 3.08 m/s Peak Velocity: 0.76 m/s, 0.56 m/s Pulmonic Valve PV Max Amilcar (0.6 - 0.9 m per sec): 0.82 m/s PV Max Gradient: 2.72 mm[Hg] Right Atrium Dictated by: Kendy Villalpando M.D. on 01/24/2022 at 18:07 Approved by: Kendy Villalpando M.D. on 01/24/2022 at 18:10 Normal [facility] A1C HEMOGLOBINon 08-28-2021 HbA1c (Bld) [Mass fraction] 7.3 % [facility] Other Glucose - FINGER STICKon Glucose [Mass/Vol] 140 mg/dL [facility] Other HbA1c (Bld) [Mass fraction]o n 08-28-2021 A1C HEMOGLOBIN [employer] [facility] Other Vital Signs Date Time Vital Sign Value Performing Clinician Facility 01-07-2024 19:48-0500 Body temperature 98.49 [degF] [facility] 01-07-2024 19:48-0500 Diastolic blood pressure 65 mm[Hg] [facility] MD [facility] 01-07-2024 19:48-0500 Heart rate 105 /min Mat Davis MD Work [facility] 01-07-2024 19:48-0500 Respiratory rate 16 /min Mat Davis MD Work Phone: [facility] 01-07-2024 19:48-0500 SaO2% (BldA) [Mass fraction] 90 % Mat Davis MD Work Phone[facility] 01-07-2024 19:48-0500 Systolic blood pressure 104 mm[Hg] Mat Davis MD [facility] 01-04-2024 05:45-0500 Body mass index (BMI) [Ratio] 35.59 kg/m2 Mat Davis MD [facility] 01-04-2024 05:45-0500 Body weight 115.7 kg Mat Davis MD Work [facility] 12-27-2023 17:00-0500 Body height 180.3 cm Mat Davis MD Work [facility] 02-08-2022 15:45-0400 Body height 182.25 cm Tondra Mapus Other [facility] Other 02-08-2022 15:45-0400 Body mass index (BMI) [Ratio] 36.19 kg/m2 Tondra Mapus Other [facility] Other 02-08-2022 15:45-0400 Body weight 120.2 kg Tondra Mapus Other [facility] Other 02-08-2022 15:45-0400 Diastolic blood pressure 79 mm[Hg] Tondra Mapus Other [facility] Other 02-08-2022 15:45-0400 Respiratory rate 20 /min Tondra Mapus Other [facility] Other 02-08-2022 15:45-0400 SaO2% (BldA) [Mass fraction] 96 % Tondra Mapus Other [facility] Other 02-08-2022 15:45-0400 Systolic blood pressure 123 mm[Hg] Tondra Mapus Other [facility] Other 08-28-2021 16:00-0400 Body height 182.25 cm Tondra Mapus Other [facility] Other 08-28-2021 16:00-0400 Body mass index (BMI) [Ratio] 36.87 kg/m2 Tondra Mapus Other [facility] Other 08-28-2021 16:00-0400 Body weight 122.47 kg Tondra Mapus Other [facility] Other 08-28-2021 16:00-0400 Diastolic blood pressure 85 mm[Hg] Tondra Mapus Other [facility] Other 08-28-2021 16:00-0400 Respiratory rate 16 /min Tondra Mapus Other [facility] Other 08-28-2021 16:00-0400 SaO2% (BldA) [Mass fraction] 95 % Tondra Mapus Other [facility] Other 08-28-2021 16:00-0400 Systolic blood pressure 120 mm[Hg] Tondra Mapus Other [facility] [employer] Other Encounters Encounter Date Encounter Type Care Provider Facility Start: 01-08-2024 Follow-up encounter [facility] Work Phone: [facility] Comment on above: Chronic atrial fibri llation ([facility]) (Primary Dx) Start: 01-08-2024 End: 01-08-2024 ambulatory [facility] Start: 01-08-2024 End: 01-08-2024 [facility]: 01-04-2024 End: 01-08-2024 Evaluation and management of inpatient JIE ALEXANDRE [facility] Start: 01-02-2024 End: 01-08-2024 Evaluation and management of inpatient [facility] Start: 01-01-2024 End: 01-08-2024 Evaluation and management of inpatient [facility] Start: 01-01-2024 End: 01-08-2024 Evaluation and management of inpatient [facility] Start: 12-31-2023 End: 01-08-2024 Evaluation and management of inpatient [facility] Start: 12-31-2023 End: 12-31-2023 Evaluation and management of inpatient [facility] Start: 12-30-2023 End: 12-30-2023 Evaluation and management of inpatient [facility] Start: 12-27-2023 End: 12-31-2023 Evaluation and management of inpatient LASHAUN Jefferson ARTHUR [facility] Start: 12-26-2023 End: 12-26-2023 ambulatory MAT DAVIS [facility] Start: 12-26-2023 End: 01-08-2024 Evaluation and management of inpatient [facility] Start: 12-25-2023 End: 01-08-2024 Evaluation and management of inpatient Francheska Felipe MD Work Phone: [facility] Start: 12-25-2023 End: 12-26-2023 Evaluation and management of inpatient CON GARCIA [facility] Start: 12-24-2023 Telephone encounter Beth Miner MA [facility] Start: 12-23-2023 End: 12-26-2023 ambulatory SUSANNE PERDOMO [facility] Start: 12-23-2023 End: 12-26-2023 Emergency department patient visit SEDRICK SORIANOGLYNN [facility] Start: 12-23-2023 End: 12-25-2023 Evaluation and management of inpatient SYDNEY GRIFFITH [facility] Start: 12-16-2023 Telephone encounter [facility] Work Phone: [facility] Start: 12-04-2023 Follow-up encounter [facility] Work Phone: [facility] Comment on above: Atrial fibrillation, unspecified type ([facility]) Start: 11-14-2023 End: 11-14-2023 ambulatory [facility] Start: 11-11-2023 End: 11-25-2023 ambulatory [facility] Start: 11-06-2023 End: 11-25-2023 ambulatory [facility] Start: 06-11-2023 End: 06-11[facility]: 12-11-2022 End: 12-11-2022 [facility] Start: 10-25-2022 End: 11-25-2022 ambulatory SHAIKH Radha CRAWFORD Facility:[facility] Start: 09-25-2022 End: 10-24-2022 ambulatory SHAIKH Radha CRAWFORD Facility:[facility] Start: 08-27-2022 End: 09-24-2022 ambulatory KING H FAWWAD Facility:[facility] Start: 07-26-2022 End: 08-25-2022 ambulatory KING H FAWWAD Facility:[facility] Start: 06-25-2022 End: 07-25-2022 ambulatory KING H FAWWAD Facility:[facility] Start: 05-25-2022 End: 06-22-2022 ambulatory KING H FAWWAD Facility:[facility] Start: 04-25-2022 End: 05-25-2022 ambulatory KING H FAWWAD Facility:[facility] Start: 03-26-2022 End: 04-24-2022 ambulatory KING H FAWWAD Facility:[facility] Start: 02-23-2022 End: 03-23-2022 ambulatory KING H FAWWAD Facility:[facility] Start: 02-08-2022 (DM) Diabetes Tondra Adarsh [facility] Start: 02-08-2022 End: 02-09-2022 ambulatory Tondra K Tristen [facility] Other Start: 01-24-2022 End: 01-25-2022 ambulatory ANNALISA DYE Facility:[facility] Start: 01-23-2022 End: 02-22-2022 ambulatory KING H FAWWAD Facility:[facility] Start: 12-26-2021 End: 01-22-2022 ambulatory KING H FAWWAD Facility:[facility] Start: 12-11-2021 End: 12-11-2021 ambulatory Tondra Tristen Other [facility] Other Start: 12-11-2021 Telephone encounter Tondra Ramon [facility] Start: 11-28-2021 End: 12-25-2021 ambulatory PAUL GONZALEZ Facility:[facility] Start: 10-12-2021 ([facility] C Vac) [facility] Co vid Vaccine Sarah Collado [facility] Start: 10-12-2021 End: 10-12-2021 ambulatory Sarah Collaod Other [facility] Other Start: 10-11-2021 (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 Sarah Collado [facility] Start: 10-11-2021 End: 10-11-2021 ambulatory Sarah Collado Other [facility] [employer] Other Start: 09-07-2021 Telephone encounter Evelina Bonds [facility] Start: 09-05-2021 Telephone encounter Evelina Bonds [facility] Start: 08-28-2021 [facility] Start: 03-19-2018 End: 03-20-2018 Ambulatory DEFAULT PHYSICIAN Facility:[facility] Start: 12-16-2017 End: 12-17-2017 Ambulatory DEFAULT PHYSICIAN Facility:[facility] Start: 09-04-2017 End: 09-05-2017 Ambulatory DEFAULT PHYSICIAN Facility:[facility] Procedures Date Procedure Procedure Detail Performing Clinician Start: 01-07-2024 Gluc bld gluc mntr d ev cleared fda spec home use Francheska Felipe MD Work Phone: Start: 01-07-2024 Gluc bld gluc mntr d ev cleared fda spec home use Francheska Felipe MD Work Phone: Start: 01-07-2024 Comprehensive metabo lic panel Meche Quiñonez [employer] Work Phone: Start: 01-06-2024 Gluc bld gluc mntr d ev cleared fda spec home use Francheska Felipe MD Work Phone: Start: 01-06-2024 Gluc bld gluc mntr d ev cleared fda spec home use Francheska Felipe MD Work Phone: Start: 01-06-2024 Gluc bld gluc mntr d ev cleared fda spec home use Francheska Felipe MD Work Phone: Start: 01-06-2024 End: 01-06-2024 Comprehensive metabolic panel Meche Quiñonez RELOCATION COORDINATOR-TERMITE CONTROL REPRESENTATIVE Work Phone: Start: 01-05-2024 Gluc bld gluc mntr d ev cleared fda spec home use Francheska Felipe MD Work Phone: Start: 01-05-2024 Gluc bld gluc mntr d ev cleared fda spec home use Francheska Felipe MD Work Phone: Start: 01-05-2024 Gluc bld gluc mntr d ev cleared fda spec home use Francheska Felipe MD Work Phone: Start: 01-05-2024 Gluc bld gluc mntr d ev cleared fda spec home use Francheska Felipe MD Work Phone: Start: 01-05-2024 Blood count complete auto&auto difrntl wbc Francheska Felipe MD Work Phone: Start: 01-05-2024 Comprehensive metabo lic panel [facility] Work Phone: Start: 01-04-2024 Gluc bld gluc mntr d ev cleared fda spec home use Francheska Felipe MD Work Phone: Start: 01-04-2024 Gluc bld gluc mntr d ev cleared fda spec home use Francheska Felipe MD Work Phone: Start: 01-04-2024 Radiologic exam ches t single view Jie Augustinалександр RELOCATION COORDINATOR-[facility] Work Phone: Start: 01-04-2024 Gluc bld gluc mntr d ev cleared fda spec home use Francheska Felipe MD Work Phone: Start: 01-04-2024 Gluc bld gluc mntr d ev cleared fda spec home use Francheska Felipe MD Work Phone: Start: 01-04-2024 Comprehensive metabo lic panel [facility] RELOCATION COORDINATOR[facility] Work Phone: Start: 01-03-2024 Gluc bld gluc mntr d ev cleared fda spec home use Francheska Felipe MD Work Phone: Start: 01-03-2024 Gluc bld gluc mntr d ev cleared fda spec home use Francheska Felipe MD Work Phone: Start: 01-03-2024 Gluc bld gluc mntr d ev cleared fda spec home use Francheska Felipe MD Work Phone: Start: 01-03-2024 Gluc bld gluc mntr d ev cleared fda spec home use Francheska Felipe MD Work Phone: Start: 01-03-2024 Comprehensive metabo lic panel Meche Turcios [facility] RELOCATION COORDINATOR-TERMITE CONTROL REPRESENTATIVE Work Phone: Start: 01-02-2024 Gluc bld gluc mntr d ev cleared fda spec home use Francheska Felipe MD Work Phone: Start: 01-02-2024 Gluc bld gluc mntr d ev cleared fda spec home use Francheska Felipe MD Work Phone: Start: 01-02-2024 Gluc bld gluc mntr d ev cleared fda spec home use Francheska Felipe MD Work Phone: Start: 01-02-2024 Gluc bld gluc mntr d ev cleared fda spec home use Francheska Felipe MD Work Phone: Start: 01-02-2024 Gluc bld gluc mntr d ev cleared fda spec home use Francheska Felipe MD Work Phone: Start: 01-02-2024 Comprehensive metabo lic panel [facility]eche [facility] RELOCATION COORDINATOR-TERMITE CONTROL REPRESENTATIVE Work Phone: Start: 01-01-2024 Gluc bld gluc mntr d ev cleared fda spec home use Francheska Felipe MD Work Phone: Start: 01-01-2024 Gluc bld gluc mntr d ev cleared fda spec home use Francheska Felipe MD Work Phone: Start: 01-01-2024 Gluc bld gluc mntr d ev cleared fda spec home use Francheska Felipe MD Work Phone: Start: 01-01-2024 Gluc bld gluc mntr d ev cleared fda spec home use Francheska Felipe MD Work Phone: Start: 01-01-2024 Gluc bld gluc mntr d ev cleared fda spec home use Francheska Felipe MD Work Phone: Start: 01-01-2024 End: 01-01-2024 Gluc bld gluc mntr dev cleared fda spec home use Francheska Felipe MD Work Phone: Start: 01-01-2024 Comprehensive metabo lic panel Meche Quiñonez RELOCATION COORDINATOR-TERMITE CONTROL REPRESENTATIVE Work Phone: Start: 12-31-2023 Gluc bld gluc mntr d ev cleared fda spec home use Francheska Felipe MD Work Phone: Start: 12-31-2023 Gluc bld gluc mntr d ev cleared fda spec home use Francheska Felipe MD Work Phone: Start: 12-31-2023 Gluc bld gluc mntr d ev cleared fda spec home use Francheska Felipe MD Work Phone: Start: 12-31-2023 Gluc bld gluc mntr d ev cleared fda spec home use Francheska Felipe MD Work Phone: Start: 12-31-2023 Gluc bld gluc mntr d ev cleared fda spec home use Francheska Felipe MD Work Phone: Start: 12-31-2023 Comprehensive metabo lic panel Meche Quiñonez RELOCATION COORDINATOR-TERMITE CONTROL REPRESENTATIVE Work Phone: Start: 12-30-2023 Gluc bld gluc mntr d ev cleared fda spec home use Francheska Felipe MD Work Phone: Start: 12-30-2023 Gluc bld gluc mntr d ev cleared fda spec home use Francheska Felipe MD Work Phone: Start: 12-30-2023 Gluc bld gluc mntr d ev cleared fda spec home use Francheska Felipe MD Work Phone: Start: 12-30-2023 Gluc bld gluc mntr d ev cleared fda spec home use Francheska Felipe MD Work Phone: Start: 12-30-2023 End: 12-30-2023 Comprehensive metabolic panel Meche Turcios [facility] [facility] Work Phone: Start: 12-29-2023 Gluc bld gluc mntr d ev cleared fda spec home use Francheska Felipe MD Work Phone: Start: 12-29-2023 Gluc bld gluc mntr d ev cleared fda spec home use Francheska Felipe MD Work Phone: Start: 12-29-2023 Gluc bld gluc mntr d ev cleared fda spec home use Francheska Felipe MD Work Phone: Start: 12-29-2023 Gluc bld gluc mntr d ev cleared fda spec home use Francheska Felipe MD Work Phone: Start: 12-29-2023 Comprehensive metabo lic panel Meche Turcios [facility] Work Phone: Start: 12-28-2023 Gluc bld gluc mntr d ev cleared fda spec home use Francheksa Felipe MD Work Phone: Start: 12-28-2023 Gluc bld gluc mntr d ev cleared fda spec home use Francheska Felipe MD Work Phone: Start: 12-28-2023 Gluc bld gluc mntr d ev cleared fda spec home use Francheska Felipe MD Work Phone: Start: 12-28-2023 Assay of lactate Zeinab Felipe MD Work Phone: Start: 12-28-2023 Gluc bld gluc mntr d ev cleared fda spec home use Francheska Felipe MD Work Phone: Start: 12-28-2023 Comprehensive metabo lic panel Meche Karolina Quiñonez RELOCATION COORDINATOR-TERMITE CONTROL REPRESENTATIVE Work Phone: Start: 12-27-2023 Gluc bld gluc mntr d ev cleared fda spec home use Francheska Felipe MD Work Phone: Start: 12-27-2023 End: 12-27-2023 DEBRIDEMENT THIGH/KNEE/CALF Hardeep galvez MD Work Phone: Start: 12-27-2023 Gluc bld gluc mntr d ev cleared fda spec home use Francheska Felipe MD Work Phone: Start: 12-27-2023 Echo tthrc r-t 2d w/wom-mode compl spec&colr d Lashaun Goldsmith RELOCATION COORDINATOR-TERMITE CONTROL REPRESENTATIVE Work Phone: Start: 12-27-2023 Drug screen quantita tive vancomycin Francheska Felipe MD Work Phone: Start: 12-27-2023 Gluc bld gluc mntr d ev cleared fda spec home use Francheska Felipe MD Work Phone: Start: 12-27-2023 Gluc bld gluc mntr d ev cleared fda spec home use Francheska Felipe MD Work Phone: Start: 12-27-2023 Comprehensive metabo lic panel Meche Karolina Quiñonez RELOCATION COORDINATOR-TERMITE CONTROL REPRESENTATIVE Work Phone: Start: 12-27-2023 Iaadiadoo not otherw ise specified Sushma Wong RELOCATION COORDINATOR-TERMITE CONTROL REPRESENTATIVE Work Phone: Start: 12-26-2023 Gluc bld gluc mntr d ev cleared fda spec home use Francheska Felipe MD Work Phone: Start: 12-26-2023 C-reactive protein Uziel Wong RELOCATION COORDINATOR-TERMITE CONTROL REPRESENTATIVE Work Phone: Start: 12-26-2023 Hemoglobin glycosylated a1c Sushma Wong RELOCATION COORDINATORMoPixTERMITE CONTROL REPRESENTATIVE Work Phone: Start: 12-26-2023 Gluc bld gluc mntr d ev cleared fda spec home use Francheska Felipe MD Work Phone: Start: 12-26-2023 Gluc bld gluc mntr d ev cleared fda spec home use Francheska Felipe MD Work Phone: Start: 12-26-2023 Gluc bld gluc mntr d ev cleared fda spec home use Francheska Felipe MD Work Phone: Start: 12-26-2023 Comprehensive metabo lic panel Meche Quiñonez RELOCATION COORDINATOR[employer] Work Phone: Start: 12-26-2023 Adult depression scr eening assessment [employer] Work Phone: Start: 12-26-2023 Prothrombin time Meche Quiñonez RELOCATION COORDIN[employer]Well Networks Work Phone: Start: 03-06-2018 Microalbumin [Mass/v olume] in Urine by Test strip [employer] Work Phone: Plan of Treatment Date Care Activity Detail Author Start: 01-04-2025 Adult BMI Screening Adult BMI Screening [facility] Start: 12-27-2024 Tobacco Screening Tobacco Screening [facility] Start: 12-26-2024 Depression Screening Depression Screening [facility] Start: 12-23-2024 Adult BMI Screening Adult BMI Screening [facility] Start: 12-23-2024 Tobacco Screening Tobacco Screening [facility] Start: 01-08-2024 End: 01-07-2025 Protime & INR [facility] Work Phone: Start: 12-26-2023 End: 12-26-2023 Follow-up encounter 12/26/2023 11:30 AM EST Follow Up Anticoagulation [facility] [address] [place] [address] [facility] Start: 07-26-2023 COVID-19 Vaccine ( season) COVID-19 Vaccine ( season) [facility] Start: 07-26-2023 Influenza vaccination Influenza Vaccine [facility] Start: 03-06-2019 Urine screening for protein Urine Microalbumin [facility] Start: 2014 Administration of varicella zoster vaccine Zoster (Shingles) Vaccine (1 of 2) [facility] Start: 1983 DTaP,Tdap and Td Vaccines (1 - Tdap) DTaP,Tdap and Td Vaccines (1 - Tdap) [facility] Start: 1982 Adult BMI Follow Up Plan Adult BMI Follow Up Plan [facility] Start: 1982 Adult BMI Screening Adult BMI Screening [facility] Start: 1982 Diabetic foot examination Diabetic Foot Exam [facility] Start: 1976 Depression Screening Depression Screening [facility] Start: 1976 Tobacco Screening Tobacco Screening [facility] Start: 1964 Glaucoma screening Diabetic Ophthalmology Exam [facility] Start: 1964 Tobacco Counseling Tobacco Counseling [facility] Bedside Glucose *Place/Obtain serum glucose if >500(>600 [facility]H) per glucometer. [facility] CBC W Auto Different ial panel - Blood [facility] Comprehensive metabo lic 2000 panel - Serum or Plasma [facility] Hyperbaric treatment HEALING IN SELECT WOUNDS [facility] Work Phone: Magnesium [Mass/volu me] in Serum or Plasma [facility] Oxygen Therapy - Kori ntain SpO2: 90%; *MANAGER OF LOSS PREVENTION OPERATIONS Guidelines for O2: Yes; Document: \[email or web address] \[email or web address]_Reference\Orders\Re spiratory Care Guidelines\CPG Oxygen 2020.pdf [facility] Protime & INR [facility] Work Phone: Immunizations Immunization Date Immunization Notes Care Provider Arthur senior 10-12-2021 COVID-19 Pfizer Sarah Collado Other [employer] Other 01-28-2020 Influenza, injectabl e, Madin Celine Canine Kidney, preservative free, quadrivalent Mat Davis MD Work Phone: [facility] 01-28-2020 influenza virus vaccine, unspecified formulation [employer] Work [facility]: [facility] 10-20-2018 pneumococcal conjuga te vaccine, 13 valent Mat Davis MD Work Phone: [facility] 09-08-2018 Influenza, injectabl e, Madin [place] [employer] Canine Kidney, preservative free, quadrivalent Mat Davis MD Work Phone: [facility] [employer] [facility] Payers Date Payer Category Payer Self-pay 2019 Medicare [id number] 1965 Unknown [id number] 2.16.84 0.1.391157.3.579.2.593 1964 Unknown [id number] 2.16.84 0.1.142624.3.579.2.593 1964 Unknown [id number] 2.16.84 0.1.223215.3.579.2.593 1964 Unknown [id number] 2.16.84 0.1.429982.3.579.2.593 1964 Unknown [id number] 2.16.84 0.1.784560.3.579.2.593 1964 Unknown [id number] 2.16.84 0.1.205386.3.579.2.593 1964 Unknown [id number] 2.16.84 0.1.057355.3.579.2.593 1964 Unknown [id number] 2.16.84 0.1.980986.3.579.2.593 1964 Unknown [id number] 2.16.84 0.1.897945.3.579.2.593 1964 Unknown [id number] 2.16.84 0.1.016886.3.579.2.593 1964 Unknown [id number] 2.16.84 0.1.000156.3.579.2.593 1964 Unknown [id number] 2.16.84 0.1.259353.3.579.2.593 1964 Unknown [id number] 2.16.84 0.1.240615.3.579.2.593 1964 Unknown [id number] 2.16.8 40.1.923464.3.579.2.1286 1964 Unknown [id number] 2.16.8 40.1.832170.3.579.2.1286 1964 Unknown [id number] 2.16.8 40.1.495267.3.579.2.1286 1964 Unknown [id number] 2.16.8 40.1.781334.3.579.2.1286 1964 Unknown [id number] 2.16.8 40.1.638949.3.579.2.1286 1964 Unknown [id number] 2.16.8 40.1.527129.3.579.2.1286 1964 Unknown [id number] 2.16.84 0.1.426684.3.579.2.1286 1964 Unknown [id number] 2.16.84 0.1.951903.3.579.2.1286 1964 Unknown [id number] 2.16.84 0.1.457481.3.579.2.1286 1964 Unknown [id number] 2.16.8 40.1.803536.3.579.2.1286 1964 Unknown [id number] 2.16.8 40.1.205442.3.579.2.1286 1964 Unknown [id number] 2.16.8 40.1.608033.3.579.2.1286 1964 Unknown [id number] 2.16.8 40.1.613181.3.579.2.1286 1964 Unknown [id number] 2.16.8 40.1.946361.3.579.2.1286 1964 Unknown [id number] 2.16.8 40.1.115653.3.579.2.128 1964 Unknown [id number] 2.16.8 40.1.144504.3.579.2.1286 1964 Unknown [id number] 2.16.8 40.1.547475.3.579.2.1286 1964 Unknown [id number] 2.16.8 40.1.908470.3.579.2.1286 1964 Unknown [id number] 2.16.8 40.1.222969.3.579.2.128 1964 Unknown [id number] 2.16.8 40.1.454248.3.579.2.128 1964 Unknown [id number] 2.16.8 40.1.627829.3.579.2.1286 1964 Unknown [id number] 2.16.8 40.1.624105.3.579.2.1286 1960 Medicare [id number] 2. 16.840.1.287466.19 Unknown Unknown [id number] 2.16.8 40.1.222776.3.579.2.531 Social History Date Type Detail Facility Start: 02-05-2018 End: 12-23-2023 Sex Assigned At [facility] [employer] Other Start: 05-22-2018 End: 12-23-2023 Tobacco smoking status SDIS Smokes tobacco daily [facility] History of tobacco use Cigarette Smoker P [facility] Start: 05-22-2018 End: 12-23-2023 Cigarettes smoked current (pack per day) - Reported 1 [facility] Start: 05-22-2018 End: 12-23-2023 Tobacco use and exposure Smokeless tobacco non-user [facility] [employer] [facility] Start: 06-20-2018 End: 12-30-2023 Alcohol intake Current non-drinker of alcohol (finding) [facility] Housing Instability Unknown [facility] Start: 1965 Sex Assigned At Not on file P [employer] [facility] Has the [employer], [employer], or [employer] threatened to shut off services in your home in past 12Mo No [facility] [employer] System Are you now , , , , never or living with a partner? [facility] How often to you hav e a drink containing alcohol? Never [facility] Do you feel stress - tense, restless, nervous, or anxious, or unable to sleep at night because your mind is troubled all the time - these days [OSQ] Only a [facility] Medical Equipment Procedure Code Equipment Code Equipment Original Text Equi pment Identifier Dates Pen [place] 32G X 4 MM Goals Date Patient Goal Desired Activity /State Personal health goal Comment on above: Formatting of this n ote might be different from the original. Evaluation of progress towards goal: Discharge to SNF. List given. Awaiting choices, acceptance & precert. Clinical Notes 08-28-2021 to 01-08-2024 [facility] - 01/08/2024 8:42 AM Allyson Geller, [facility] - 01/08/2024 8:42 AM Gonzalo Elizabeth RN - 01/08/2024 12:18 AM Binh InstructionsPT/OT/SUPERVISOR COIN MACHINE - Oswald Morales PT - 01/03/2024 4:04 PM EST Note Date & Type Note Facility 01-08-2024 History of Present illness Narrative Patient was admitted to [facility] on 12/23, then was transferred to [facility] 12/25-01/07/24 for cellulitis with venous ulcers on BL lower extremities. He had a 2-week history of drainage with new sores opening on lower legs. XR revealed extensive soft tissue swelling concerning for cellulitis in LLE, negative blood cultures; patient was treated with IV abx and underwent debridement on 12/27. Of note, patient developed a rash likely secondary to 4 days of Unasyn therapy, for which an allergy is now noted in the chart. Hospital stay was prolonged by the rash and patient complaints of dizziness; orthostatic vitals were postive and patient was treated with midodrine. Patient was discharged to SNF ([facility]). Patient has a PMH of AF on warfarin. Numerous medication changes were made at discharge, none largely affecting INR. Patient was not discharged with antibiotics. Please see anticoagulation track board for dosing while inpatient. INR was 1.8 at discharge on 01/07. Thalia Dias 01/08/24 1059 Called [facility] (P: [phone]) 01/08/24 10:52 AM and spoke with Kimmie. She confirms that in house provider will manage warfarin. Requested to be notified when patient discharges and for IN[facility]. Anticoagulation episode resolved. Letter sent to referring provider. Laureen Geller RPH 01/08/24 1059 documented in this encounter [facility] 01-08-2024 Nurse Note Patient picked up by PTN for transfer to [facility]. All belongings returned. Telemetry and IV removed. [facility] called for update on patient arrival. No further needs at this time. documented in this encounter [facility] 01-07-2024 Hospital Discharge instructions Shannen Remy RN - 01/07/2024 6:51 PM EST Admin Instructions: Daytime hyperglycemia dosing. For blood glucose 151-200 mg/dL, give 2 units. For blood glucose 201-250 mg/dL, give 4 units. For blood glucose 251-300 mg/dL, give 6 units. For blood glucose 301-350 mg/dL, give 8 units. For blood glucose 351-400 mg/dL, give 10 units. Give even if NPO or meals skipped. Do NOT give more often then every 4 hours when NPO. Notify prescriber if blood glucose greater than 400 mg/dL. Product Instructions: Look-alike/sound-alike medication - verify indication for use. Prime with 2 units of insulin prior to administration. Prandial/supplemental Insulin. Pre-filled pens stable 28 days at room temperature. Insulin lispro should be administered within 15 minutes before or immediately after a meal. documented in this encounter [facility] 01-07-2024 Miscellaneous Notes Physical Therapy Treatment Discharge Recommendations PT Recommendations: [facility] Facility 6 Clicks: Basic Mobility Turning from your back to your side while in a flat bed without using bed rails?: None Moving from lying on your back to sitting on side of flat bed without using bed rails?: A little Moving to and from bed to a chair (including w/c)?: A little Standing up from a chair using your arms (e.g. w/c or bedside chair)?: A little To walk in hospital room?: A little Climbing 3-5 steps with a railing?: Total Scoring 6 Clicks: Basic Mobility Raw Score: 17 CMS G Code Modifier: CK PT Treatment/Interventions: Functional transfer training, LE strengthening/ROM, Endurance training, Equipment eval/education, Stair training, Balance, Bed mobility, Gait training, Compensatory technique education, Functional activities, Neuromuscular reeducation PT Frequency: 4-5days/week PT Duration: LOS Patient Response to Treatment: No functional improvements Assessment Patient Assessment Therapy Problem List: Decreased ADL status, Decreased balance, Decreased endurance, Decreased high-level ADLs, Decreased mobility, Decreased safe judgement during ADL, Decreased self-care trans, Decreased UE strength, Decreased LE strength Patient Response to Treatment: No functional improvements Mood/Affect: Appropriate for circumstances Rehab Prognosis: Good, Guarded, With continued PT status post acute discharge Visit RN Communication: Yes Medical Record Reviewed: Yes PT Type of Visit: Treatment Precautions Activity: Early mobility pass; okay to see per RN Equipment: Rasheed amanda, gait belt Telemetry/Stacker Straightener: Yes Other: fall risk, bilat LE wounds, +orthostatic hypotension-pt symptomatic Pain Assessment Pain Assessment: 0-10 Pain Score: 7 Pain Type: Acute pain Pain Location: Hip, Knee, Back, Leg Pain Orientation: Right, Left Effect of Pain on Daily Activities: comfort/rest Patient's Stated Pain Goal: No pain Pain Intervention(s): Repositioned, Ambulation/increased activity Response to Interventions: Quiet, No grimacing Cognition Orientation Level: Oriented X4 Bed Mobility Supine to Sit: Contact guard assist, Left Sit to Supine: Contact guard assist, Left Other: Patient completed supine>sitting EOB with HOB elevated, moderate use of bed rails to exit>L. Patient requires extra time/effort but complete with CGA. Patient declined to stay in recliner at end of session-CGA provided for safe reentry. Patient able to reposition toward HOB on his own. BLEs elevated, call light left near. RN notified of patient location and response to treatment. Transfers Sit to Stand: Contact guard assist Stand to Sit: Contact guard assist Toilet Transfers: Contact guard assist Other: Pt. peg good hand placement and completed sit<>stand transfers with CGA-Utilized rasheed stedy to transfer to and from toilet due to urgency-CGA for on/off, Pt. declined wanting to use RW to transfer/ambulate back from bathroom. Dizziness noted when returned to bed. Gait Other: Pt. declined and preferred using rasheed stedy for bathroom trips Balance Sitting Balance: Static: Good Sitting Balance: Dynamic: Good Standing Balance: Static: Fair (+) Standing Balance: Dynamic: Fair Other: Patient tolerated standing for approx. 20-30 sec x2 using BUE support on arsheed stedy-SBA for safety. Activity Tolerance Endurance: Tolerates 30 minutes activity with rest breaks Other: (S) Pt. spent extended amount of time in bathroom on toilet-Declined to attempt standing/ambulating with RW. Declined exercises. Declined staying in recliner and was returned to bed after bathroom trip. Plan Physical Therapy Care Plan Physical Therapy Care Plan (Active) Template: PT - Physical Therapy Problem: Activity Tolerance Dates: Start: 01/03/24 Disciplines: PT Goal: Tolerate 30 minutes of activity WITH rest breaks Dates: Start: 01/03/24 Expected End: 01/31/24 Description: Goal Description: Pt to complete 20 reps exercise to improve functional strength and activity tolerance Disciplines: PT Outcomes Date/Time User Outcome 01/07/24 1555 Donny Epstein, HOOK TENDER Not Progressing 01/06/24 1550 Donny Epstein HOOK TENDER Progressing Problem: Bed Mobility Dates: Start: 01/03/24 Disciplines: PT Goal: Patient will perform bed mobility Independently Dates: Start: 01/03/24 Expected End: 01/31/24 Description: Goal Description: Disciplines: PT Outcomes Date/Time User Outcome 01/07/24 1555 Donny Epstein, HOOK TENDER Progressing 01/06/24 1550 Donny Epstein, HOOK TENDER Progressing Problem: Gait Dates: Start: 01/03/24 Disciplines: PT Goal: Patient will perform gait with Modified [place] Dates: Start: 01/03/24 Expected End: 01/31/24 Description: With RW, 60 feet Goal Description: Disciplines: PT Outcomes Date/Time User Outcome 01/07/24 155Robert Epstein PTA Not Progressing Problem: Stairs/Curb Dates: Start: 01/03/24 Disciplines: PT Goal: Patient will perform stairs/curb with Stand By Assist Dates: Start: 01/03/24 Expected End: 01/31/24 Description: 1 step 1 hand rails Goal Description: Disciplines: PT Problem: Standing Balance Dates: Start: 01/03/24 Disciplines: PT Goal: Improve balance to good Dates: Start: 01/03/24 Expected End: 01/31/24 Description: Static Dynamic to decrease risk of falls during gait/transfers Disciplines: PT Outcomes Date/Time User Outcome 01/07/24 1555 Donny Epstein, HOOK TENDER Progressing 01/06/24 1550 Donny Epstein PTA Progressing Problem: Strength Dates: Start: 01/03/24 Disciplines: PT Goal: Improve strength Dates: Start: 01/03/24 Expected End: 01/31/24 Description: Of extremity/ location: bilat 4/5 To facilitate: functional independence Disciplines: PT Outcomes Date/Time User Outcome 01/07/24 1555 Donny Epstein, HOOK TENDER Progressing 01/06/24 1550 Donny Epstein, HOOK TENDER Progressing Problem: Transfers Dates: Start: 01/03/24 Disciplines: PT Goal: Patient will perform transfers with Modified [place] Dates: Start: 01/03/24 Expected End: 01/31/24 Description: Goal Description: Disciplines: PT Outcomes Date/Time User Outcome 01/07/24 155Robert Epstein HOOK TENDER Not Progressing 01/06/24 1550 Donny Epstein, HOOK TENDER Progressing Physical Therapy Care Plan (Resolved) There are no resolved problems. Principal Problem: Cellulitis Active Problems: Chronic atrial fibrillation ([facility]) Diastolic heart failure ([facility]) Essential hypertension Mixed hyperlipidemia Type 2 diabetes mellitus with obesity ([facility]) Venous ulcer of left lower extremity without varicose veins ([facility]) Venous ulcer of right lower extremity without varicose veins ([facility]) Open wound of both lower extremities Lymphedema Associated attestation - Emily Gaines, PT - 01/07/2024 4:05 PM EST I have reviewed and agree with this note and education documentation for this visit. Occupational Therapy Treatment Discharge Recommendations OT Recommendations : Correction Facility 6 Clicks: Daily Activity Putting on and taking off regular lower body clothing?: Total Bathing (including washing, rinsing, drying)?: A lot Toileting, which includes using toilet, bedpan or urinal?: A little Putting on and taking off regular upper body clothing?: A little Taking care of personal grooming such as brushing teeth?: A little Eating meals?: None Scoring Daily Activity Raw Score: 16 CMS G Code Modifier: CK OT Treatment/Interventions: ADL retraining, Functional transfer training, UE strengthening/ROM, Endurance training, Patient/family training, Equipment eval/education, Balance, Home management, Compensatory technique education, Functional activities, Gait training OT Frequency: 4-5days/week OT Duration: LOS Assessment Patient Assessment Therapy Problem List: Decreased ADL status, Decreased balance, Decreased endurance, Decreased high-level ADLs, Decreased mobility, Decreased safe judgement during ADL, Decreased self-care trans, Decreased UE strength, Decreased LE strength Patient Response to Treatment: Progressing toward goals Mood/Affect: Appropriate for circumstances Rehab Prognosis: Good, With continued OT status post acute discharge Visit RN Communication: Yes Medical Record Reviewed: Yes OT Type of Visit: Treatment Precautions Activity: Early mobility: pass; ok to see per RN Equipment: rasheed amanda Weight Bearing Status: no restriction Telemetry/Stacker Straightener: Yes Oxygen Used: room air Other: fall risk, bilat LE wounds, +orthostatic hypotension-pt symptomatic Pain Assessment Pain Assessment: 0-10 Pain Score: 7 Pain Location: Hip, Knee, Back, Leg Pain Orientation: Right, Left Pain Intervention(s): Repositioned, Ambulation/increased activity Response to Interventions: Quiet, No grimacing ADL / IADL Hand Dominance: Right Where Assessed: At toilet Toilet/Commode Assistance: Standby assist Other: pt completed toileting while working on unsupported sitting approx 15 minutes on toilet. pt completed own candi-care. transferred to toilet with rasheed shelbyelda. deferred other ADLs this date. Home Management - IADL Other: pt completed toileting while working on unsupported sitting approx 15 minutes on toilet. pt completed own candi-care. transferred to toilet with rasheed afsanehelda. deferred other ADLs this date. Hearing / Speech / Vision Hearing: Within Functional Limits Speech: Within Functional Limits Current Vision: Wears glasses all the time Cognition Overall Cognitive Status: Within Functional Limits Orientation Level: Oriented X4 Bed Mobility Supine to Sit: Contact guard assist Sit to Supine: Contact guard assist Other: pt completed sup to sit with HOB slightly elevated and use of bed rails. increased time and effort required. pt then was returned to bed at end of session with CGA. Assist to boost toward HOB, however, pt able to assist with boost. pt with call light in reach and all needs met at end. RN aware. Transfers Sit to Stand: Contact guard assist Stand to Sit: Contact guard assist Toilet Transfers: Contact guard assist Other: completed STS transfer x2 with rasheed amanda and CGA. Pt demonstrated correct hand placement during transfers. pt reports dizziness upon sitting at EOB and BP taken: 106/66. Gait Other: NA Balance Sitting Balance: Static: Good Sitting Balance: Dynamic: Good Standing Balance: Static: Fair (+) Standing Balance: Dynamic: Fair Other: BUE support on rasheed stedy during standing balance. pt completed unsupported sitting approx 20 minutes total this date. Activity Tolerance Endurance: Tolerates <30 minutes activity WITHOUT vital sign changes Other: BP sitting EOB after toiletin/66. Pt c/o intermittent dizziness throughout. Pt reports he was too fatigued s/p toileting to complete exercises or other tasks with chart writer. Plan Occupational Therapy Care Plan Occupational Therapy Care Plan (Active) Template: OT - Occupational Therapy Problem: Activity Tolerance Dates: Start: 01/03/24 Disciplines: OT Goal: Tolerate > 30 minutes of activity WITHOUT rest breaks Dates: Start: 01/03/24 Expected End: 01/31/24 Description: Goal Description: Disciplines: OT Outcomes Date/Time User Outcome 01/07/24 1528 Marlena David OTR/L Not Progressing 01/06/24 1541 Shanna Cordoba OTR/L Progressing Goal Note filed on 01/07/24 1528 by Marlena David OTR/Al Evaluation of progress towards goal: Problem: Bed Mobility Dates: Start: 01/03/24 Disciplines: OT Goal: Patient will perform bed mobility with Modified [place] Dates: Start: 01/03/24 Expected End: 01/31/24 Description: Goal Description: Disciplines: OT Outcomes Date/Time User Outcome 01/07/24 1528 Marlena David OTR/L Progressing 01/06/24 1541 Shanna Cordoba OTR/L Progressing Goal Note filed on 01/07/24 1528 by Marlena David OTR/Al Evaluation of progress towards goal: Problem: Functional Mobility Dates: Start: 01/03/24 Disciplines: OT Goal: Patient will perform functional mobility with Modified [place] Dates: Start: 01/03/24 Expected End: 01/31/24 Description: Goal Description: Disciplines: OT Outcomes Date/Time User Outcome 01/07/24 1528 Marlena David OTR/L Not Progressing Goal Note filed on 01/07/24 1528 by Marlena David OTR/Al Evaluation of progress towards goal: Problem: Other (Customize) Dates: Start: 01/03/24 Description: Pt will demo MOD I with all ADLs using AE prn to facilitate return to PLOF. Disciplines: OT Goal: Improve Dates: Start: 01/03/24 Expected End: 01/31/24 Description: Goal Description: Disciplines: OT Outcomes Date/Time User Outcome 01/07/24 1528 Marlena David OTR/L Progressing 01/06/24 1541 Shanna Cordoba OTR/L Progressing Goal Note filed on 01/07/24 1528 by Marlena David OTR/Al Evaluation of progress towards goal: Problem: Standing Balance Dates: Start: 01/03/24 Disciplines: OT Goal: Improve balance to good Dates: Start: 01/03/24 Expected End: 01/31/24 Description: Static Dynamic Disciplines: OT Outcomes Date/Time User Outcome 01/07/24 1528 Marlena David OTR/L Progressing 01/06/24 1541 Shanna Cordoba OTR/Al Progressing Goal Note filed on 01/07/24 1528 by CORTNEY Metzger/Al Evaluation of progress towards goal: Problem: Strength Dates: Start: 01/03/24 Description: Pt will demo good understanding of BUE strengthening HEP to increase endurance for functional transfers, mobility, and ADL with RW. Disciplines: OT Goal: Improve strength Dates: Start: 01/03/24 Expected End: 01/31/24 Description: Of extremity/ location: To facilitate: Disciplines: OT Outcomes Date/Time User Outcome 01/06/24 1541 Shanna Cordoba OTR/Al Progressing Problem: Toilet Transfers Dates: Start: 01/03/24 Disciplines: OT Goal: Patient will perform toilet transfers with Modified [place] Dates: Start: 01/03/24 Expected End: 01/31/24 Description: Goal Description: Disciplines: OT Outcomes Date/Time User Outcome 01/07/24 1528 Marlena David OTR/Al Progressing Goal Note filed on 01/07/24 1528 by Marlena David OTR/Al Evaluation of progress towards goal: Problem: Transfers Dates: Start: 01/03/24 Disciplines: OT Goal: Patient will perform transfers with Modified [place] Dates: Start: 01/03/24 Expected End: 01/31/24 Description: Goal Description: Disciplines: OT Outcomes Date/Time User Outcome 01/07/24 1528 Marlena David OTR/Al Progressing 01/06/24 1541 Shanna Cordoba OTR/Al Progressing Goal Note filed on 01/07/24 1528 by Marlena David OTR/Al Evaluation of progress towards goal: Occupational Therapy Care Plan (Resolved) There are no resolved problems. Principal Problem: Cellulitis Active Problems: Chronic atrial fibrillation ([facility]) Diastolic heart failure ([facility]) Essential hypertension Mixed hyperlipidemia Type 2 diabetes mellitus with obesity ([facility]) Venous ulcer of left lower extremity without varicose veins (CMS-HCC) Venous ulcer of right lower extremity without varicose veins (CMS-HCC) Open wound of both lower extremities Lymphedema DISCHARGE PLANNING NOTE BLS transport via PTN to [facility] 01/07/24 at 7:00pm. Confirmed in [employer] DISCHARGE PLANNING NOTE Authorization has been approved for [facility]. [facility] to schedule 5p BLS transport. MD RN informed - SHANNA CORNELIUS 01/07/24 11:07 AM [facility] sent. Transport packet complete. Transport scheduled for 7p - SHANNA CORNELIUS 01/07/24 2:44 PM Problem: Pain Goal: Patient goal is pain score less than 4, able to rest, and participant in treatment plan as appropriate Description: INTERVENTIONS: 1. Encourage patient or legal business services sales representative to report early pain and ask for pain medicine when needed 2. Assess pain using appropriate pain scale and include the scale used when documenting 3. Administer analgesics based on type and severity of pain and evaluate response within appropriate time frame 4. Implement non-pharmacological measures as appropriate and evaluate response 5. Consider cultural and social influences on pain and pain management 8. Reassess pain per policy 9. Teach patient or legal business services sales representative interventions for comforting Outcome: Progressing Note: Evaluation of progress towards goal: Patient is progressing towards adequate comfort level or baseline comfort level. Problem: Safety Goal: Patient will be injury free during hospitalization Description: INTERVENTIONS: 1. Assess patient's risk for falls and implement fall prevention plan of care per policy 2. Provide and maintain a safe environment 3. Proper use of double Identifiers 4. Medication administration using the 5 rights 5. Hand hygiene 6. Specimens are labeled at the bedside 7. Instruct patient/ patient business services sales representative about use of safety devices 8. Include patient/ patient business services sales representative in decisions related to safety Outcome: Progressing Note: Evaluation of progress towards goal: Patient is progressing towards an injury free stay in the hospital. Problem: Infection Goal: Absence of infection during hospitalization Description: Interventions: 1. Assess and monitor for signs and symptoms of infection 2. Monitor lab/diagnostic results 3. Monitor all insertion sites i.e., indwelling lines, tubes and drains 4. Monitor endotracheal (as able) and nasal secretions for changes in amount and color 5. Administer medications as ordered 6. Instruct and encourage patient and family to use good hand hygiene technique 7. Identify and instruct patient/patient business services sales representative in use of appropriate isolation precautions for identified infection/symptoms 8. Provide and discuss with patient/patient business services sales representative on educational MDRO sheet 9. Encourage and monitor nutritional status daily and consult heater helper forge if indicated 10. Implement neutropenic guidelines as needed 11. Review exposure to history of communicable disease and recent travel history on admission 12. Encourage annual influenza vaccine 13. Encourage pneumonia vaccine Outcome: Progressing Note: Evaluation of progress towards goal: Patient is progressing towards an absence of infection during this hospital stay. Problem: Knowledge Deficit Goal: Patient/patient business services sales representative demonstrates understanding of disease process, treatment plan, medications, and discharge instructions Description: INTERVENTIONS 1. Complete learning assessment and assess knowledge base 2. Provide teaching at level of understanding 3. Provide teaching via preferred learning method(s) Outcome: Progressing Note: Evaluation of progress towards goal: Patient is progressing towards understanding of the disease process, treatment plan, medications and discharge instructions. Problem: Discharge Planning Goal: Discharge to post-acute care, other facility, or home with appropriate resources Description: Patient's goal is: INTERVENTIONS 1. Conduct assessment to determine patient/family and health care team treatment goals, and need for post-acute services based on payer coverage, community resources, and patient preferences, and barriers to discharge 2. Coordinate with Social work, Care Navigation, and Utilization Review to arrange appropriate level of services according to patient's needs based on patient preference and payer coverage in collaboration with the physician and health care team 3. Address psychosocial, clinical, and financial barriers to discharge as identified in assessment in conjunction with the patient/family and health care team 4. Consult appropriate ancillary services (i.e.. PT/OT/ST, etc) as needed 5. Communicate with and update the patient/family, physician, and health care team regarding progress on the discharge plan 6. Identify discharge learning needs (meds, wound care, etc). 7. Arrange for needed discharge transportation as appropriate Outcome: Progressing Note: Evaluation of progress towards goal: Patient is progressing towards discharge to post-acute care,other facility, or home with appropriate resources. DISCHARGE PLANNING NOTE Prior auth sent to [place] on behalf of [facility] with ref [id number] approved for 7 days and member must admit within the next 72 hours Physical Therapy Treatment Discharge Recommendations PT Recommendations: [facility] 6 Clicks: Basic Mobility Turning from your back to your side while in a flat bed without using bed rails?: A little Moving from lying on your back to sitting on side of flat bed without using bed rails?: A little Moving to and from bed to a chair (including w/c)?: A little Standing up from a chair using your arms (e.g. w/c or bedside chair)?: A little To walk in hospital room?: A lot Climbing 3-5 steps with a railing?: Total Scoring 6 Clicks: Basic Mobility Raw Score: 15 CMS G Code Modifier: CK PT Treatment/Interventions: Functional transfer training, LE strengthening/ROM, Endurance training, Equipment eval/education, Stair training, Balance, Bed mobility, Gait training, Compensatory technique education, Functional activities, Neuromuscular reeducation PT Frequency: 4-5days/week PT Duration: until goals met Patient Response to Treatment: Slow progress, decreased activity tolerance Assessment Patient Assessment Therapy Problem List: Decreased balance, Decreased endurance, Decreased mobility, Decreased self-care trans, Decreased LE strength, Decreased ADL status, Decreased high-level ADLs Patient Response to Treatment: Slow progress, decreased activity tolerance Mood/Affect: Appropriate for circumstances Rehab Prognosis: Good, With continued PT status post acute discharge Visit RN Communication: Yes Medical Record Reviewed: Yes PT Type of Visit: Treatment Precautions Activity: Early mobility pass; okay to see per RN Equipment: Gait belt, rasheed stedy Telemetry/Stacker Straightener: Yes Other: fall risk, bilat LE wounds, +orthostatic hypotension-pt symptomatic Pain Assessment Pain Assessment: 0-10 Pain Score: 6 Pain Type: Chronic pain, Acute pain Pain Location: Leg Pain Orientation: Right, Left Effect of Pain on Daily Activities: comfort/rest Patient's Stated Pain Goal: No pain Pain Intervention(s): Repositioned, Ambulation/increased activity, Elevated Response to Interventions: Quiet, No grimacing Cognition Orientation Level: Oriented X4 Bed Mobility Supine to Sit: Stand by assist, Left Sit to Supine: Stand by assist Other: Patient completed supine>sitting EOB with HOB elevated, moderate use of bed rails to exit>L. Patient completed in a timely manner without cueing or assistance-SBA provided for safety. Patient returned to bed at end of session-SBA provided for safe reentry. Patient able to reposition toward HOB with bed flat. BLEs elevated with call light left near. RN aware of patient location. Transfers Sit to Stand: Contact guard assist, Verbal cues Stand to Sit: Contact guard assist, Verbal cues Other: Patient demos good hand placement and completed sit<>stand transfers with CGA-Dizziness/lightheadedness noted with drop in BP during each attempt. No transfers completed with RW. Gait Other: NA Balance Sitting Balance: Static: Good Sitting Balance: Dynamic: Good Standing Balance: Static: Fair (+) Standing Balance: Dynamic: Fair Other: Patient tolerated sitting unsupported for approx. 15 minutes throughout session-UE support as needed, SBA for safety. Patient tolerated standing for approx.1 minutes x2 with BUE support on rasheed stedy-CGA for safety, no LOB noted. 01/06/24 1516 LE Supine LE supine exercises performed? Yes Ankle pumps X Supine heel slides X Hip abduction X Leg raises X Repetitions 10 Therapeutic Activity Therapeutic activity exercises performed? Yes Seated X Other Incentive Spirometer Repetitions 10 Other Exercise Assessment Other exercises performed? Yes Exercise Type #1 Ball squeeze for promotions director strengthening Activity Tolerance Endurance: Tolerates 30 minutes activity with rest breaks Other: Supine BP:111/68; Seated BP: 113/90; Standing BP:85/51; Seated BP after standing transfer: 97/68; Supine BP at end of session: 101/66. Standing tolerance limited due to symptoms of dizziness/lightheadedness. Supine exercises completed with AROM. Deferred ambulation this session. Plan Physical Therapy Care Plan Physical Therapy Care Plan (Active) Template: PT - Physical Therapy Problem: Activity Tolerance Dates: Start: 01/03/24 Disciplines: PT Goal: Tolerate 30 minutes of activity WITH rest breaks Dates: Start: 01/03/24 Expected End: 01/31/24 Description: Goal Description: Pt to complete 20 reps exercise to improve functional strength and activity tolerance Disciplines: PT Outcomes Date/Time User Outcome 01/06/24 Carolyne Epstein PTA Progressing Problem: Bed Mobility Dates: Start: 01/03/24 Disciplines: PT Goal: Patient will perform bed mobility Independently Dates: Start: 01/03/24 Expected End: 01/31/24 Description: Goal Description: Disciplines: PT Outcomes Date/Time User Outcome 01/06/24 155Presley Epstein PTA Progressing Problem: Gait Dates: Start: 01/03/24 Disciplines: PT Goal: Patient will perform gait with Modified [place] Dates: Start: 01/03/24 Expected End: 01/31/24 Description: With RW, 60 feet Goal Description: Disciplines: PT Problem: Stairs/Curb Dates: Start: 01/03/24 Disciplines: PT Goal: Patient will perform stairs/curb with Stand By Assist Dates: Start: 01/03/24 Expected End: 01/31/24 Description: 1 step 1 hand rails Goal Description: Disciplines: PT Problem: Standing Balance Dates: Start: 01/03/24 Disciplines: PT Goal: Improve balance to good Dates: Start: 01/03/24 Expected End: 01/31/24 Description: Static Dynamic to decrease risk of falls during gait/transfers Disciplines: PT Outcomes Date/Time User Outcome 01/06/24 155Presley Epstein PTA Progressing Problem: Strength Dates: Start: 01/03/24 Disciplines: PT Goal: Improve strength Dates: Start: 01/03/24 Expected End: 01/31/24 Description: Of extremity/ location: bilat 4/5 To facilitate: functional independence Disciplines: PT Outcomes Date/Time User Outcome 01/06/24 155Presley Epstein PTA Progressing Problem: Transfers Dates: Start: 01/03/24 Disciplines: PT Goal: Patient will perform transfers with Modified [place] Dates: Start: 01/03/24 Expected End: 01/31/24 Description: Goal Description: Disciplines: PT Outcomes Date/Time User Outcome 01/06/24 Carolyne Epstein PTA Progressing Physical Therapy Care Plan (Resolved) There are no resolved problems. Principal Problem: Cellulitis Active Problems: Chronic atrial fibrillation (CMS-HCC) Diastolic heart failure (CMS-HCC) Essential hypertension Mixed hyperlipidemia Type 2 diabetes mellitus with obesity (CMS-HCC) Venous ulcer of left lower extremity without varicose veins (CMS-HCC) Venous ulcer of right lower extremity without varicose veins (CMS-HCC) Open wound of both lower extremities Lymphedema Associated attestation - Emily Gaines, PT - 01/06/2024 5:07 PM EST I have reviewed and agree with this note and education documentation for this visit. Occupational Therapy Treatment Discharge Recommendations OT Recommendations : [facility] SNF[facility]ECF Comments: Recommend SNF at discharge 2/2 inability to safely care for self/low activity tolerance at this time. High fall risk. 6 Clicks: Daily Activity Putting on and taking off regular lower body clothing?: Total Bathing (including washing, rinsing, drying)?: A lot Toileting, which includes using toilet, bedpan or urinal?: A lot Putting on and taking off regular upper body clothing?: A little Taking care of personal grooming such as brushing teeth?: A little Eating meals?: None Scoring Daily Activity Raw Score: 15 CMS G Code Modifier: CK Therapy Plan 01/06/24 1436 UE Progressive Resistive UE progressive resistive exercises performed? Yes Shoulder flexion X Horizontal abduction/adduction X Bicep curls X Other alternating punches Repetitions red theraband- 10 reps BUE OT Treatment/Interventions: ADL retraining, Functional transfer training, UE strengthening/ROM, Endurance training, Patient/family training, Equipment eval/education, Balance, Home management, Compensatory technique education, Functional activities, Gait training OT Frequency: 4-5days/week OT Duration: LOS Assessment Patient Assessment Therapy Problem List: Decreased balance, Decreased endurance, Decreased mobility, Decreased self-care trans, Decreased LE strength, Decreased ADL status, Decreased high-level ADLs Patient Response to Treatment: Tolerated evaluation without adverse reaction Mood/Affect: Appropriate for circumstances Rehab Prognosis: Good, With continued OT status post acute discharge Visit RN Communication: Yes Medical Record Reviewed: Yes OT Type of Visit: Treatment Precautions Activity: early mobility, pass Equipment: gait belt, RW Weight Bearing Status: no restriction Telemetry/Stacker Straightener: Yes Oxygen Used: room air Other: fall risk, bilat LE wounds, +orthostatic hypotension-pt symptomatic Pain Assessment Pain Assessment: 0-10 Pain Score: 9 (6-9/10 varying throughout) Pain Type: Chronic pain, Acute pain Pain Location: Leg Pain Orientation: Right, Left Pain Intervention(s): Repositioned, Ambulation/increased activity, Environmental changes Response to Interventions: Pain worsened (when in a dependent position) ADL / IADL Hand Dominance: Right Where Assessed: Supine, bed, Edge of bed UE Dressing Assistance: Setup, Standby assist UE Dressing Deficit: Increased time to complete, Supervision/safety Footwear Assistance: Total assist Footwear Deficit: L sock, R sock Other: Pt completed gown change seated unsupported at EOB with set up/SBA given orthostatics/dizziness. Pt declined other grooming d/t worsening dizziness and pain with BLE in dependent position. Total A to change socks seated EOB- pt tolerated socks this date without yelling in pain -improving BLE edema. Hearing / Speech / Vision Hearing: Within Functional Limits Speech: Within Functional Limits Current Vision: Wears glasses all the time Cognition Overall Cognitive Status: Within Functional Limits Orientation Level: Oriented X4 Bed Mobility Supine to Sit: Stand by assist Sit to Supine: Stand by assist Other: Supine>sit from slightly elevated HOB with use of bed rail and inc time/effort d/t lightheadedness/BLE pain. Pt returned self to supine end of session with inc effort to elevate BLE back to bed. Needs in reach end of session. Transfers Sit to Stand: Contact guard assist Stand to Sit: Contact guard assist Other: STS from elevated EOB to rasheed stedy completed x2 with CGA for safety d/t dizziness/lightheadedness and report of vision jumping up and down once standing . Unable to complete functional transfer with RW safely given current symptoms Gait Other: Pt too symptomatic of hypotension and too painful with BLE in gravity dependent position to attempt to ambulate. Pt educated on using a BSC/rasheed stedy for toileting with SBA for safety- pt declines attempting this at this time. Balance Balance Evaluation: Exceptions to Functional Limits Sitting Balance: Static: Good Sitting Balance: Dynamic: Good (-) Standing Balance: Static: Fair (+) Standing Balance: Dynamic: Fair Other: Unsupported sitting throughout session for BP assessment and adjustment to positional change approx 15 mins. Static standing in rasheed stedy for approx 1 min x2 for BP assessment and change of linens with CGA Activity Tolerance Endurance: Tolerates <30 minutes activity WITHOUT vital sign changes (IS completed x 10 reps with cues for tech) Other: BP supine: 111/68, sittin/90, standin/57, reassessed once sitting again 97/68, checked supine again 101/66. Acute lightheadedness/dizziness once standing. Pt was saturating 96% at OT entrance on 2L and removed O2 prior to activity- reporting he wears it to sleep. Pt desat to 88% and O2 reapplied s/p vc's by end of session. Plan Occupational Therapy Care Plan Occupational Therapy Care Plan (Active) Template: OT - Occupational Therapy Problem: Activity Tolerance Dates: Start: 01/03/24 Disciplines: OT Goal: Tolerate > 30 minutes of activity WITHOUT rest breaks Dates: Start: 01/03/24 Expected End: 01/31/24 Description: Goal Description: Disciplines: OT Outcomes Date/Time User Outcome 01/06/24 154CORTNEY Nair/Al Progressing Problem: Bed Mobility Dates: Start: 01/03/24 Disciplines: OT Goal: Patient will perform bed mobility with Modified [place] Dates: Start: 01/03/24 Expected End: 01/31/24 Description: Goal Description: Disciplines: OT Outcomes Date/Time User Outcome 01/06/24 CORTNEY Moseley/Al Progressing Problem: Functional Mobility Dates: Start: 01/03/24 Disciplines: OT Goal: Patient will perform functional mobility with Modified [place] Dates: Start: 01/03/24 Expected End: 01/31/24 Description: Goal Description: Disciplines: OT Problem: Other (Customize) Dates: Start: 01/03/24 Description: Pt will demo MOD I with all ADLs using AE prn to facilitate return to PLOF. Disciplines: OT Goal: Improve Dates: Start: 01/03/24 Expected End: 01/31/24 Description: Goal Description: Disciplines: OT Outcomes Date/Time User Outcome 01/06/24 CORTNEY Moseley/Al Progressing Problem: Standing Balance Dates: Start: 01/03/24 Disciplines: OT Goal: Improve balance to good Dates: Start: 01/03/24 Expected End: 01/31/24 Description: Static Dynamic Disciplines: OT Outcomes Date/Time User Outcome 01/06/24 1541 CORTNEY Mittal/Al Progressing Problem: Strength Dates: Start: 01/03/24 Description: Pt will demo good understanding of BUE strengthening HEP to increase endurance for functional transfers, mobility, and ADL with RW. Disciplines: OT Goal: Improve strength Dates: Start: 01/03/24 Expected End: 01/31/24 Description: Of extremity/ location: To facilitate: Disciplines: OT Outcomes Date/Time User Outcome 01/06/24 1541 CORTNEY Mittal/Al Progressing Problem: Toilet Transfers Dates: Start: 01/03/24 Disciplines: OT Goal: Patient will perform toilet transfers with Modified [place] Dates: Start: 01/03/24 Expected End: 01/31/24 Description: Goal Description: Disciplines: OT Problem: Transfers Dates: Start: 01/03/24 Disciplines: OT Goal: Patient will perform transfers with Modified [place] Dates: Start: 01/03/24 Expected End: 01/31/24 Description: Goal Description: Disciplines: OT Outcomes Date/Time User Outcome 01/06/24 1541 CORTNEY Mittal/Al Progressing Occupational Therapy Care Plan (Resolved) There are no resolved problems. Principal Problem: Cellulitis Active Problems: Chronic atrial fibrillation (CMS-HCC) Diastolic heart failure ([facility] Essential hypertension Mixed hyperlipidemia Type 2 diabetes mellitus with obesity (CMS-HCC) Venous ulcer of left lower extremity without varicose veins (CMS-HCC) Venous ulcer of right lower extremity without varicose veins (CMS-HCC) Open wound of both lower extremities Lymphedema DISCHARGE PLANNING NOTE Discharge to [facility] pending auth. [facility] tasked to submit. Pt will need S transport. - SHANNA CORNELIUS 01/06/24 1:37 PM Problem: Pain Goal: Patient goal is pain score less than 4, able to rest, and participant in treatment plan as appropriate Description: INTERVENTIONS: 1. Encourage patient or legal business services sales representative to report early pain and ask for pain medicine when needed 2. Assess pain using appropriate pain scale and include the scale used when documenting 3. Administer analgesics based on type and severity of pain and evaluate response within appropriate time frame 4. Implement non-pharmacological measures as appropriate and evaluate response 5. Consider cultural and social influences on pain and pain management 8. Reassess pain per policy 9. Teach patient or legal business services sales representative interventions for comforting Outcome: Progressing Note: Evaluation of progress towards goal: PRN pain meds available. Problem: Safety Goal: Patient will be injury free during hospitalization Description: INTERVENTIONS: 1. Assess patient's risk for falls and implement fall prevention plan of care per policy 2. Provide and maintain a safe environment 3. Proper use of double Identifiers 4. Medication administration using the 5 rights 5. Hand hygiene 6. Specimens are labeled at the bedside 7. Instruct patient/ patient business services sales representative about use of safety devices 8. Include patient/ patient business services sales representative in decisions related to safety Outcome: Progressing Note: Evaluation of progress towards goal: Patients call light within reach. Patient has on non slip socks. Bed Alarm On. Problem: Infection Goal: Absence of infection during hospitalization Description: Interventions: 1. Assess and monitor for signs and symptoms of infection 2. Monitor lab/diagnostic results 3. Monitor all insertion sites i.e., indwelling lines, tubes and drains 4. Monitor endotracheal (as able) and nasal secretions for changes in amount and color 5. Administer medications as ordered 6. Instruct and encourage patient and family to use good hand hygiene technique 7. Identify and instruct patient/patient business services sales representative in use of appropriate isolation precautions for identified infection/symptoms 8. Provide and discuss with patient/patient business services sales representative on educational MDRO sheet 9. Encourage and monitor nutritional status daily and consult heater helper forge if indicated 10. Implement neutropenic guidelines as needed 11. Review exposure to history of communicable disease and recent travel history on admission 12. Encourage annual influenza vaccine 13. Encourage pneumonia vaccine Outcome: Progressing Note: Evaluation of progress towards goal: Monitoring labs and vitals. Patient afebrile at this time. Problem: Knowledge Deficit Goal: Patient/patient business services sales representative demonstrates understanding of disease process, treatment plan, medications, and discharge instructions Description: INTERVENTIONS 1. Complete learning assessment and assess knowledge base 2. Provide teaching at level of understanding 3. Provide teaching via preferred learning method(s) Outcome: Progressing Note: Evaluation of progress towards goal: Patient understands treatment plan and education instructions. Problem: Discharge Planning Goal: Discharge to post-acute care, other facility, or home with appropriate resources Description: Patient's goal is: INTERVENTIONS 1. Conduct assessment to determine patient/family and health care team treatment goals, and need for post-acute services based on payer coverage, community resources, and patient preferences, and barriers to discharge 2. Coordinate with Social work, Care Navigation, and Utilization Review to arrange appropriate level of services according to patient's needs based on patient preference and payer coverage in collaboration with the physician and health care team 3. Address psychosocial, clinical, and financial barriers to discharge as identified in assessment in conjunction with the patient/family and health care team 4. Consult appropriate ancillary services (i.e.. PT/OT/ST, etc) as needed 5. Communicate with and update the patient/family, physician, and health care team regarding progress on the discharge plan 6. Identify discharge learning needs (meds, wound care, etc). 7. Arrange for needed discharge transportation as appropriate Outcome: Progressing Note: Evaluation of progress towards goal: discharge education reviewed. Problem: Pain Goal: Patient goal is pain score less than 4, able to rest, and participant in treatment plan as appropriate Description: INTERVENTIONS: 1. Encourage patient or legal business services sales representative to report early pain and ask for pain medicine when needed 2. Assess pain using appropriate pain scale and include the scale used when documenting 3. Administer analgesics based on type and severity of pain and evaluate response within appropriate time frame 4. Implement non-pharmacological measures as appropriate and evaluate response 5. Consider cultural and social influences on pain and pain management 8. Reassess pain per policy 9. Teach patient or legal business services sales representative interventions for comforting Outcome: Progressing Note: Evaluation of progress towards goal: pain controlled Problem: Safety Goal: Patient will be injury free during hospitalization Description: INTERVENTIONS: 1. Assess patient's risk for falls and implement fall prevention plan of care per policy 2. Provide and maintain a safe environment 3. Proper use of double Identifiers 4. Medication administration using the 5 rights 5. Hand hygiene 6. Specimens are labeled at the bedside 7. Instruct patient/ patient business services sales representative about use of safety devices 8. Include patient/ patient business services sales representative in decisions related to safety Outcome: Progressing Note: Evaluation of progress towards goal: free from injury Problem: Pain Goal: Patient goal is pain score less than 4, able to rest, and participant in treatment plan as appropriate Description: INTERVENTIONS: 1. Encourage patient or legal business services sales representative to report early pain and ask for pain medicine when needed 2. Assess pain using appropriate pain scale and include the scale used when documenting 3. Administer analgesics based on type and severity of pain and evaluate response within appropriate time frame 4. Implement non-pharmacological measures as appropriate and evaluate response 5. Consider cultural and social influences on pain and pain management 8. Reassess pain per policy 9. Teach patient or legal business services sales representative interventions for comforting Outcome: Progressing Note: Evaluation of progress towards goal: PRN pain meds available. Problem: Safety Goal: Patient will be injury free during hospitalization Description: INTERVENTIONS: 1. Assess patient's risk for falls and implement fall prevention plan of care per policy 2. Provide and maintain a safe environment 3. Proper use of double Identifiers 4. Medication administration using the 5 rights 5. Hand hygiene 6. Specimens are labeled at the bedside 7. Instruct patient/ patient business services sales representative about use of safety devices 8. Include patient/ patient business services sales representative in decisions related to safety Outcome: Progressing Note: Evaluation of progress towards goal: Patients call light within reach. Patient has on non slip socks. Bed Alarm On. Problem: Infection Goal: Absence of infection during hospitalization Description: Interventions: 1. Assess and monitor for signs and symptoms of infection 2. Monitor lab/diagnostic results 3. Monitor all insertion sites i.e., indwelling lines, tubes and drains 4. Monitor endotracheal (as able) and nasal secretions for changes in amount and color 5. Administer medications as ordered 6. Instruct and encourage patient and family to use good hand hygiene technique 7. Identify and instruct patient/patient business services sales representative in use of appropriate isolation precautions for identified infection/symptoms 8. Provide and discuss with patient/patient business services sales representative on educational MDRO sheet 9. Encourage and monitor nutritional status daily and consult heater helper forge if indicated 10. Implement neutropenic guidelines as needed 11. Review exposure to history of communicable disease and recent travel history on admission 12. Encourage annual influenza vaccine 13. Encourage pneumonia vaccine Outcome: Progressing Note: Evaluation of progress towards goal: Monitoring labs and vitals. Patient afebrile at this time. Problem: Knowledge Deficit Goal: Patient/patient business services sales representative demonstrates understanding of disease process, treatment plan, medications, and discharge instructions Description: INTERVENTIONS 1. Complete learning assessment and assess knowledge base 2. Provide teaching at level of understanding 3. Provide teaching via preferred learning method(s) Outcome: Progressing Note: Evaluation of progress towards goal: Patient understands treatment plan and education instructions. Problem: Discharge Planning Goal: Discharge to post-acute care, other facility, or home with appropriate resources Description: Patient's goal is: INTERVENTIONS 1. Conduct assessment to determine patient/family and health care team treatment goals, and need for post-acute services based on payer coverage, community resources, and patient preferences, and barriers to discharge 2. Coordinate with Social work, Care Navigation, and Utilization Review to arrange appropriate level of services according to patient's needs based on patient preference and payer coverage in collaboration with the physician and health care team 3. Address psychosocial, clinical, and financial barriers to discharge as identified in assessment in conjunction with the patient/family and health care team 4. Consult appropriate ancillary services (i.e.. PT/OT/ST, etc) as needed 5. Communicate with and update the patient/family, physician, and health care team regarding progress on the discharge plan 6. Identify discharge learning needs (meds, wound care, etc). 7. Arrange for needed discharge transportation as appropriate Outcome: Progressing Note: Evaluation of progress towards goal: discharge education reviewed. Problem: Pain Goal: Patient goal is pain score less than 4, able to rest, and participant in treatment plan as appropriate Description: INTERVENTIONS: 1. Encourage patient or legal business services sales representative to report early pain and ask for pain medicine when needed 2. Assess pain using appropriate pain scale and include the scale used when documenting 3. Administer analgesics based on type and severity of pain and evaluate response within appropriate time frame 4. Implement non-pharmacological measures as appropriate and evaluate response 5. Consider cultural and social influences on pain and pain management 8. Reassess pain per policy 9. Teach patient or legal business services sales representative interventions for comforting Outcome: Progressing Note: Evaluation of progress towards goal: pain controlled Problem: Safety Goal: Patient will be injury free during hospitalization Description: INTERVENTIONS: 1. Assess patient's risk for falls and implement fall prevention plan of care per policy 2. Provide and maintain a safe environment 3. Proper use of double Identifiers 4. Medication administration using the 5 rights 5. Hand hygiene 6. Specimens are labeled at the bedside 7. Instruct patient/ patient business services sales representative about use of safety devices 8. Include patient/ patient business services sales representative in decisions related to safety Outcome: Progressing Note: Evaluation of progress towards goal: free from injury Problem: Pain Goal: Patient goal is pain score less than 4, able to rest, and participant in treatment plan as appropriate Description: INTERVENTIONS: 1. Encourage patient or legal business services sales representative to report early pain and ask for pain medicine when needed 2. Assess pain using appropriate pain scale and include the scale used when documenting 3. Administer analgesics based on type and severity of pain and evaluate response within appropriate time frame 4. Implement non-pharmacological measures as appropriate and evaluate response 5. Consider cultural and social influences on pain and pain management 8. Reassess pain per policy 9. Teach patient or legal business services sales representative interventions for comforting Outcome: Progressing Note: Evaluation of progress towards goal: Patient given prn pain medications as needed, will monitor. Problem: Safety Goal: Patient will be injury free during hospitalization Description: INTERVENTIONS: 1. Assess patient's risk for falls and implement fall prevention plan of care per policy 2. Provide and maintain a safe environment 3. Proper use of double Identifiers 4. Medication administration using the 5 rights 5. Hand hygiene 6. Specimens are labeled at the bedside 7. Instruct patient/ patient business services sales representative about use of safety devices 8. Include patient/ patient business services sales representative in decisions related to safety Outcome: Progressing Note: Evaluation of progress towards goal: patient safety maintained, call light in reach, will monitor. Problem: Infection Goal: Absence of infection during hospitalization Description: Interventions: 1. Assess and monitor for signs and symptoms of infection 2. Monitor lab/diagnostic results 3. Monitor all insertion sites i.e., indwelling lines, tubes and drains 4. Monitor endotracheal (as able) and nasal secretions for changes in amount and color 5. Administer medications as ordered 6. Instruct and encourage patient and family to use good hand hygiene technique 7. Identify and instruct patient/patient business services sales representative in use of appropriate isolation precautions for identified infection/symptoms 8. Provide and discuss with patient/patient business services sales representative on educational MDRO sheet 9. Encourage and monitor nutritional status daily and consult heater helper forge if indicated 10. Implement neutropenic guidelines as needed 11. Review exposure to history of communicable disease and recent travel history on admission 12. Encourage annual influenza vaccine 13. Encourage pneumonia vaccine Outcome: Progressing Note: Evaluation of progress towards goal: monitoring labs and vitals Problem: Knowledge Deficit Goal: Patient/patient business services sales representative demonstrates understanding of disease process, treatment plan, medications, and discharge instructions Description: INTERVENTIONS 1. Complete learning assessment and assess knowledge base 2. Provide teaching at level of understanding 3. Provide teaching via preferred learning method(s) Outcome: Progressing Note: Evaluation of progress towards goal: poc discussed with patient, will monitor. Problem: Discharge Planning Goal: Discharge to post-acute care, other facility, or home with appropriate resources Description: Patient's goal is: INTERVENTIONS 1. Conduct assessment to determine patient/family and health care team treatment goals, and need for post-acute services based on payer coverage, community resources, and patient preferences, and barriers to discharge 2. Coordinate with Social work, Care Navigation, and Utilization Review to arrange appropriate level of services according to patient's needs based on patient preference and payer coverage in collaboration with the physician and health care team 3. Address psychosocial, clinical, and financial barriers to discharge as identified in assessment in conjunction with the patient/family and health care team 4. Consult appropriate ancillary services (i.e.. PT/OT/ST, etc) as needed 5. Communicate with and update the patient/family, physician, and health care team regarding progress on the discharge plan 6. Identify discharge learning needs (meds, wound care, etc). 7. Arrange for needed discharge transportation as appropriate Outcome: Progressing Note: Evaluation of progress towards goal: patient will be given discharge instructions, medications, and follow up appointments upon discharge, will monitor. Occupational Therapy Evaluation Discharge Recommendations OT Recommendations : [facility] Comments: Recommend SNF at discharge 2/2 inability to safely care for self/low activity tolerance at this time. High fall risk. 6 Clicks: Daily Activity Putting on and taking off regular lower body clothing?: Total Bathing (including washing, rinsing, drying)?: A lot Toileting, which includes using toilet, bedpan or urinal?: A lot Putting on and taking off regular upper body clothing?: A little Taking care of personal grooming such as brushing teeth?: A little Eating meals?: None Scoring Daily Activity Raw Score: 15 CMS G Code Modifier: CK Therapy Plan Need for skilled Occupational Therapy to address deficits in ADL independence and functional mobility due to a status decline resulting from cellulitis. Pt is 58 y/o male admitted 12/25/23 from outside hospital with bilat LE cellulitis, lymphedema, wounds with drainage bilat LE 2/2 s/p excisional debridement of bilat LE due to retained hematoma/venous stasis ulcers Pt in permanent A fib HBO treatment initiated, vascular signed off OT Treatment/Interventions: ADL retraining, Functional transfer training, UE strengthening/ROM, Endurance training, Patient/family training, Equipment eval/education, Balance, Home management, Compensatory technique education, Functional activities, Gait training OT Frequency: 4-5days/week OT Duration: LOS Assessment Patient Assessment Therapy Problem List: Decreased balance, Decreased endurance, Decreased mobility, Decreased self-care trans, Decreased LE strength, Decreased ADL status, Decreased high-level ADLs Patient Response to Treatment: Tolerated evaluation without adverse reaction Mood/Affect: Appropriate for circumstances Rehab Prognosis: Good, With continued OT status post acute discharge Visit RN Communication: Yes Medical Record Reviewed: Yes OT Type of Visit: Evaluation Precautions Activity: early mobility, pass Equipment: gait belt, RW, IV line Weight Bearing Status: no restriction Telemetry/Stacker Straightener: Yes Oxygen Used: room air Other: fall risk, bilat LE wounds, +orthostatic hypotension-pt symptomatic Pain Assessment Pain Assessment: 0-10 Pain Score: 7 Pain Type: Acute pain Pain Location: Leg Pain Orientation: Right, Left Pain Intervention(s): Repositioned, Ambulation/increased activity, Environmental changes, Elevated Response to Interventions: Pain worsened Home Living Type of Home: House Home Layout: One level Stairs to Enter: 1 Hand Rails: None Bathroom Shower/Tub: Walk-in shower Bathroom Toilet: Raised (grab bar) Bathroom Equipment: Built-in shower seat, Grab bars in shower, Hand-held shower, Grab bars around toilet Home Equipment: Rolling walker 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 Uses [employer] transportation. 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) Other: No recent falls ADL / IADL Hand Dominance: Right Where Assessed: Supine, bed, Edge of bed Eating Assistance: Independent Grooming Assistance: Setup, Standby assist Grooming Deficit: Oral hygiene, Wash/dry face, Increased time to complete, Supervision/safety, Verbal cueing Bathing/Showering Assistance: Mod assist Toilet/Commode Assistance: Min assist UE Dressing Assistance: Min assist UE Dressing Deficit: Pull around back, Increased time to complete LE Dressing Assistance: Max assist Footwear Assistance: Total assist Footwear Deficit: L sock, R sock (did not tolerate sock pulled fully over heel d/t pain/sensitivity) Other: Pt completed grooming tasks and gown change seated unsupported at EOB with SBA for safety and inc time/effort. Rest breaks throughout d/t Afib up to 150s. Pt reports initial lightheadedness upon sitting up which improved with time. Hearing / Speech / Vision Hearing: Within Functional Limits Speech: Within Functional Limits Current Vision: Wears glasses all the time Cognition Overall Cognitive Status: Within Functional Limits (Reports the pain in his BLE wounds feels like 10,000 gremlins with tasers saying CORONADO you're an asshole -zapping me in the legs ) Orientation Level: Oriented X4 Sensation Overall Sensation Status: Consistent with premorbid status Other: tingling in toes/fingers at baseline Bed Mobility Supine to Sit: Stand by assist Sit to Supine: Stand by assist Other: HOB elevated and bed rail use for supine>sit with inc time/effort for BLE progression d/t wounds/pain . Able to elevate BLE back into bed with inc time- declines assistance d/t hypersensitivity of BLE. Needs in reach end of session with BLE elevated per wound care recommendations Transfers Sit to Stand: Min assist Stand to Sit: Min assist Other: Cues for safe hand placement with STS without follow through. Pt reports lightheadedness/dizziness with STS and this did not improve with inc time in standing. Orthostatics taken and are (+) Gait Gait Assistance: Min assist Assistive Device: Rolling walker Gait Distance: side steps to head of bed Limiting Factors to Gait: Fatigue, Weakness, Medical status change, Decreased safety (orthostatics (+)) Other: Distance limited by increasing pain in BLE with WBing and (+) orthostatics-highly symptomatic. Balance Sitting Balance: Static: Good Sitting Balance: Dynamic: Fair Standing Balance: Static: Fair Standing Balance: Dynamic: Fair (-) Other: BUE support on RW for short duration given (+) orthostatics and Min a to maintain RUE Assessment: Within Functional Limits LUE Assessment: Within Functional Limits RLE Assessment: Within Functional Limits (gross 4/5) LLE Assessment: Within Functional Limits (gross 4/5) Activity Tolerance Endurance: Tolerates <30 minutes activity WITHOUT vital sign changes Other: +orthostatic hypotension with supine 101/71, seated 96/55 and standing 75/64 wtih heart rate 120s to 150s. RN aware Plan Occupational Therapy Care Plan Occupational Therapy Care Plan (Active) Template: OT - Occupational Therapy Problem: Activity Tolerance Dates: Start: 01/03/24 Disciplines: OT Goal: Tolerate > 30 minutes of activity WITHOUT rest breaks Dates: Start: 01/03/24 Expected End: 01/31/24 Description: Goal Description: Disciplines: OT Problem: Bed Mobility Dates: Start: 01/03/24 Disciplines: OT Goal: Patient will perform bed mobility with Modified [place] Dates: Start: 01/03/24 Expected End: 01/31/24 Description: Goal Description: Disciplines: OT Problem: Functional Mobility Dates: Start: 01/03/24 Disciplines: OT Goal: Patient will perform functional mobility with Modified [place] Dates: Start: 01/03/24 Expected End: 01/31/24 Description: Goal Description: Disciplines: OT Problem: Other (Customize) Dates: Start: 01/03/24 Description: Pt will demo MOD I with all ADLs using AE prn to facilitate return to PLOF. Disciplines: OT Goal: Improve Dates: Start: 01/03/24 Expected End: 01/31/24 Description: Goal Description: Disciplines: OT Problem: Standing Balance Dates: Start: 01/03/24 Disciplines: OT Goal: Improve balance to good Dates: Start: 01/03/24 Expected End: 01/31/24 Description: Static Dynamic Disciplines: OT Problem: Strength Dates: Start: 01/03/24 Description: Pt will demo good understanding of BUE strengthening HEP to increase endurance for functional transfers, mobility, and ADL with RW. Disciplines: OT Goal: Improve strength Dates: Start: 01/03/24 Expected End: 01/31/24 Description: Of extremity/ location: To facilitate: Disciplines: OT Problem: Toilet Transfers Dates: Start: 01/03/24 Disciplines: OT Goal: Patient will perform toilet transfers with Modified [place] Dates: Start: 01/03/24 Expected End: 01/31/24 Description: Goal Description: Disciplines: OT Problem: Transfers Dates: Start: 01/03/24 Disciplines: OT Goal: Patient will perform transfers with Modified [place] Dates: Start: 01/03/24 Expected End: 01/31/24 Description: Goal Description: Disciplines: OT Occupational Therapy Care Plan (Resolved) There are no resolved problems. Principal Problem: Cellulitis Active Problems: Chronic atrial fibrillation ([facility]) Diastolic heart failure ([facility] Essential hypertension Mixed hyperlipidemia Type 2 diabetes mellitus with obesity ([facility]) Venous ulcer of left lower extremity without varicose veins ([facility]) Venous ulcer of right lower extremity without varicose veins ([facility]) Open wound of both lower extremities Lymphedema Past Medical History: Diagnosis Date Angina pectoris ([facility]) Arthritis Atrial fibrillation ([facility]) Chronic kidney disease kidney stones COPD (chronic obstructive pulmonary disease) ([facility]) Coronary artery disease Dental disease Diabetes mellitus type 2, controlled ([facility] [place] [place]) Hyperlipidemia Hypertension Migraines Myocardial infarction ([facility]) x2 Obesity Pneumonia Rash Shortness of breath Visual impairment glasses Past Surgical History: Procedure Laterality Date ABDOMINAL SURGERY complete abdominoplasty APPENDECTOMY CARDIAC CATHETERIZATION LAD stents x2 CARDIAC ELECTROPHYSIOLOGY MAPPING AND ABLATION CHOLECYSTECTOMY EXCISIONAL DEBRIDEMENT LOWER LEGS Bilateral 12/27/2023 Performed by Hardeep Kiran MD at [facility] HERNIA REPAIR KNEE ARTHROSCOPY Bilateral LITHOTRIPSY MANIPULATION SHOULDER Left 06/19/2018 Performed by Jr Kendy Renee DO at [facility] TONSILLECTOMY Physical Therapy Evaluation Discharge Recommendations PT Recommendations: [facility] Comments: due to decreased functional independence from prior to hospitalization, inability to care for self, high fall risk 6 Clicks: Basic Mobility Turning from your back to your side while in a flat bed without using bed rails?: A little Moving from lying on your back to sitting on side of flat bed without using bed rails?: A little Moving to and from bed to a chair (including w/c)?: A little Standing up from a chair using your arms (e.g. w/c or bedside chair)?: A little To walk in hospital room?: Total Climbing 3-5 steps with a railing?: Total Scoring 6 Clicks: Basic Mobility Raw Score: 14 [facility] G Code Modifier: CK Therapy Plan Need for skilled Physical Therapy to address deficits in functional mobility due to a status decline resulting from deconditioning and cellulitis Pt admitted 12/25/23 from outside hospital with bilat LE cellulitis, lymphedema, wounds with drainage bilat LE / s/p excisional debridement of bilat LE due to retained hematoma/venous stasis ulcers Pt in permanent A fib HBO treatment initiated, vascular signed off Past Medical History: Diagnosis Date Angina pectoris ([facility] [place] [place]) Arthritis Atrial fibrillation ([facility] [place] [place]) Chronic kidney disease kidney stones COPD (chronic obstructive pulmonary disease) ([facility] [place] [place]) Coronary artery disease Dental disease Diabetes mellitus type 2, controlled ([facility] [place] [place]) Hyperlipidemia Hypertension Migraines Myocardial infarction ([facility] [place] [place]) x2 Obesity Pneumonia Rash Shortness of breath Visual impairment glasses Past Surgical History: Procedure Laterality Date ABDOMINAL SURGERY complete abdominoplasty APPENDECTOMY CARDIAC CATHETERIZATION LAD stents x2 CARDIAC ELECTROPHYSIOLOGY MAPPING AND ABLATION CHOLECYSTECTOMY EXCISIONAL DEBRIDEMENT LOWER LEGS Bilateral 12/27/2023 Performed by Hardeep Kiran MD at [facility] HERNIA REPAIR KNEE ARTHROSCOPY Bilateral LITHOTRIPSY MANIPULATION SHOULDER Left 06/19/2018 Performed by Jr Kendy Renee DO at [facility] TONSILLECTOMY PT Treatment/Interventions: Functional transfer training, LE strengthening/ROM, Endurance training, Equipment eval/education, Stair training, Balance, Bed mobility, Gait training, Compensatory technique education, Functional activities, Neuromuscular reeducation PT Frequency: 4-5days/week PT Duration: until goals met Patient Response to Treatment: Tolerated evaluation without adverse reaction Assessment Patient Assessment Therapy Problem List: Decreased balance, Decreased endurance, Decreased mobility, Decreased self-care trans, Decreased LE strength Patient Response to Treatment: Tolerated evaluation without adverse reaction Mood/Affect: Appropriate for circumstances Rehab Prognosis: Good, With continued PT status post acute discharge Visit RN Communication: Yes Medical Record Reviewed: Yes PT Type of Visit: Evaluation Precautions Activity: early mobility, pass Equipment: gait belt, RW, IV line Weight Bearing Status: no restriction Telemetry/Stacker Straightener: Yes Oxygen Used: room air Other: fall risk, bilat LE wounds, +orthostatic hypotension-pt symptomatic Pain Assessment Pain Assessment: 0-10 Pain Score: 7 Pain Type: Acute pain Pain Location: Leg Pain Orientation: Right, Left Pain Intervention(s): Ambulation/increased activity Response to Interventions: Pain worsened (not tested) Home Living Type of Home: House Home Layout: One level Stairs to Enter: 1 Hand Rails: None Bathroom Shower/Tub: Walk-in shower Bathroom Toilet: Raised (grab bar) Bathroom Equipment: Built-in shower seat, Grab bars in shower, Hand-held shower, Grab bars around toilet Home Equipment: Rolling walker Other : pt does not use DME to amb at home, reports dizziness when up at times Prior Function Lives With: Alone Receives Help From: Family ([employer] [facility]) Level of Mobility: Independent with ADLs and functional transfers or gait Homemaking Assistance: Independent (assist with driving from [employer]) Shopping: Total assist Hearing / Speech / Vision Hearing: Within Functional Limits Speech: Within Functional Limits Current Vision: Wears glasses all the time Cognition Overall Cognitive Status: Within Functional Limits Orientation Level: Oriented X4 Sensation Overall Sensation Status: Consistent with premorbid status Other: tingling toes/fingers Bed Mobility Supine to Sit: Stand by assist (with HOB elevated and railing used) Sit to Supine: Stand by assist Other: denies lightheadedness, pt in bed with call light i nreach after evaluation. RN updated Transfers Sit to Stand: Min assist Stand to Sit: Min assist Other: cues for hand placement and safety Gait Pattern: Forward trunk, R Decreased foot clearance, L Decreased foot clearance, Decreased nicki Gait Assistance: Min assist Assistive Device: Rolling walker Gait Distance: side steps to head of bed Limiting Factors to Gait: Fatigue, Weakness, Medical status change, Decreased safety Other: pt feeling lighteaded with standing, BP taken and dropped from 96/55 to 75/64. pt having increased pain in LEs as well limiting ability to side step Balance Balance Evaluation: Exceptions to Functional Limits Sitting Balance: Static: Good Sitting Balance: Dynamic: Fair Standing Balance: Static: Fair Standing Balance: Dynamic: Fair (fair-) Other: with UE support RUE Assessment: Within Functional Limits LUE Assessment: Within Functional Limits RLE Assessment: Within Functional Limits (grossly 4/5) LLE Assessment: Within Functional Limits (grossly 4/5) Activity Tolerance Endurance: Tolerates <30 minutes activity WITHOUT vital sign changes Other: pt sat edge of bed x 10 minutes for ADL with fair tolerance--increased LE pain. pt +orthostatic hypotension with supine 101/71, seated 96/55 and standing 75/64 wtih heart rate 120s to 150s. RN updated Plan Physical Therapy Care Plan Physical Therapy Care Plan (Active) Template: PT - Physical Therapy Problem: Activity Tolerance Dates: Start: 01/03/24 Disciplines: PT Goal: Tolerate 30 minutes of activity WITH rest breaks Dates: Start: 01/03/24 Expected End: 01/31/24 Description: Goal Description: Pt to complete 20 reps exercise to improve functional strength and activity tolerance Disciplines: PT Problem: Bed Mobility Dates: Start: 01/03/24 Disciplines: PT Goal: Patient will perform bed mobility Independently Dates: Start: 01/03/24 Expected End: 01/31/24 Description: Goal Description: Disciplines: PT Problem: Gait Dates: Start: 01/03/24 Disciplines: PT Goal: Patient will perform gait with Modified [place] Dates: Start: 01/03/24 Expected End: 01/31/24 Description: With RW, 60 feet Goal Description: Disciplines: PT Problem: Stairs/Curb Dates: Start: 01/03/24 Disciplines: PT Goal: Patient will perform stairs/curb with Stand By Assist Dates: Start: 01/03/24 Expected End: 01/31/24 Description: 1 step 1 hand rails Goal Description: Disciplines: PT Problem: Standing Balance Dates: Start: 01/03/24 Disciplines: PT Goal: Improve balance to good Dates: Start: 01/03/24 Expected End: 01/31/24 Description: Static Dynamic to decrease risk of falls during gait/transfers Disciplines: PT Problem: Strength Dates: Start: 01/03/24 Disciplines: PT Goal: Improve strength Dates: Start: 01/03/24 Expected End: 01/31/24 Description: Of extremity/ location: bilat 4/5 To facilitate: functional independence Disciplines: PT Problem: Transfers Dates: Start: 01/03/24 Disciplines: PT Goal: Patient will perform transfers with Modified [place] Dates: Start: 01/03/24 Expected End: 01/31/24 Description: Goal Description: Disciplines: PT Physical Therapy Care Plan (Resolved) There are no resolved problems. Principal Problem: Cellulitis Active Problems: Chronic atrial fibrillation ([facility]) Diastolic heart failure ([facility] Essential hypertension Mixed hyperlipidemia Type 2 diabetes mellitus with obesity ([facility]) Venous ulcer of left lower extremity without varicose veins ([facility]) Venous ulcer of right lower extremity without varicose veins ([facility]) Open wound of both lower extremities Lymphedema DISCHARGE PLANNING NOTE Referral to [facility] (P#: ; F#: ) DISCHARGE PLANNING NOTE SW spoke to pt about discharge plans. He would like a referral sent to [facility]. [facility] tasked for referral. SW will continue to follow for additional needs - SHANNA CORNELIUS 01/03/24 11:49 AM Problem: Pain Goal: Patient goal is pain score less than 4, able to rest, and participant in treatment plan as appropriate Description: INTERVENTIONS: 1. Encourage patient or legal business services sales representative to report early pain and ask for pain medicine when needed 2. Assess pain using appropriate pain scale and include the scale used when documenting 3. Administer analgesics based on type and severity of pain and evaluate response within appropriate time frame 4. Implement non-pharmacological measures as appropriate and evaluate response 5. Consider cultural and social influences on pain and pain management 8. Reassess pain per policy 9. Teach patient or legal business services sales representative interventions for comforting Note: Evaluation of progress towards goal: pain controlled Problem: Safety Goal: Patient will be injury free during hospitalization Description: INTERVENTIONS: 1. Assess patient's risk for falls and implement fall prevention plan of care per policy 2. Provide and maintain a safe environment 3. Proper use of double Identifiers 4. Medication administration using the 5 rights 5. Hand hygiene 6. Specimens are labeled at the bedside 7. Instruct patient/ patient business services sales representative about use of safety devices 8. Include patient/ patient business services sales representative in decisions related to safety Outcome: Progressing Note: Evaluation of progress towards goal: free from injury Problem: Infection Goal: Absence of infection during hospitalization Description: Interventions: 1. Assess and monitor for signs and symptoms of infection 2. Monitor lab/diagnostic results 3. Monitor all insertion sites i.e., indwelling lines, tubes and drains 4. Monitor endotracheal (as able) and nasal secretions for changes in amount and color 5. Administer medications as ordered 6. Instruct and encourage patient and family to use good hand hygiene technique 7. Identify and instruct patient/patient business services sales representative in use of appropriate isolation precautions for identified infection/symptoms 8. Provide and discuss with patient/patient business services sales representative on educational MDRO sheet 9. Encourage and monitor nutritional status daily and consult heater helper forge if indicated 10. Implement neutropenic guidelines as needed 11. Review exposure to history of communicable disease and recent travel history on admission 12. Encourage annual influenza vaccine 13. Encourage pneumonia vaccine Outcome: Progressing Note: Evaluation of progress towards goal: ab complete Problem: Pain Goal: Patient goal is pain score less than 4, able to rest, and participant in treatment plan as appropriate Description: INTERVENTIONS: 1. Encourage patient or legal business services sales representative to report early pain and ask for pain medicine when needed 2. Assess pain using appropriate pain scale and include the scale used when documenting 3. Administer analgesics based on type and severity of pain and evaluate response within appropriate time frame 4. Implement non-pharmacological measures as appropriate and evaluate response 5. Consider cultural and social influences on pain and pain management 8. Reassess pain per policy 9. Teach patient or legal business services sales representative interventions for comforting Outcome: Progressing Note: Evaluation of progress towards goal: PRN pain meds available upon request. Problem: Safety Goal: Patient will be injury free during hospitalization Description: INTERVENTIONS: 1. Assess patient's risk for falls and implement fall prevention plan of care per policy 2. Provide and maintain a safe environment 3. Proper use of double Identifiers 4. Medication administration using the 5 rights 5. Hand hygiene 6. Specimens are labeled at the bedside 7. Instruct patient/ patient business services sales representative about use of safety devices 8. Include patient/ patient business services sales representative in decisions related to safety Outcome: Progressing Note: Evaluation of progress towards goal: Pt remains free from injury. Call light within reach. Problem: Infection Goal: Absence of infection during hospitalization Description: Interventions: 1. Assess and monitor for signs and symptoms of infection 2. Monitor lab/diagnostic results 3. Monitor all insertion sites i.e., indwelling lines, tubes and drains 4. Monitor endotracheal (as able) and nasal secretions for changes in amount and color 5. Administer medications as ordered 6. Instruct and encourage patient and family to use good hand hygiene technique 7. Identify and instruct patient/patient business services sales representative in use of appropriate isolation precautions for identified infection/symptoms 8. Provide and discuss with patient/patient business services sales representative on educational MDRO sheet 9. Encourage and monitor nutritional status daily and consult heater helper forge if indicated 10. Implement neutropenic guidelines as needed 11. Review exposure to history of communicable disease and recent travel history on admission 12. Encourage annual influenza vaccine 13. Encourage pneumonia vaccine Outcome: Progressing Note: Evaluation of progress towards goal: Pt remains free from s/s of infection. Problem: Knowledge Deficit Goal: Patient/patient business services sales representative demonstrates understanding of disease process, treatment plan, medications, and discharge instructions Description: INTERVENTIONS 1. Complete learning assessment and assess knowledge base 2. Provide teaching at level of understanding 3. Provide teaching via preferred learning method(s) Outcome: Progressing Note: Evaluation of progress towards goal: Pt updated on poc and voices questions/concerns to staff. Problem: Discharge Planning Goal: Discharge to post-acute care, other facility, or home with appropriate resources Description: Patient's goal is: INTERVENTIONS 1. Conduct assessment to determine patient/family and health care team treatment goals, and need for post-acute services based on payer coverage, community resources, and patient preferences, and barriers to discharge 2. Coordinate with Social work, Care Navigation, and Utilization Review to arrange appropriate level of services according to patient's needs based on patient preference and payer coverage in collaboration with the physician and health care team 3. Address psychosocial, clinical, and financial barriers to discharge as identified in assessment in conjunction with the patient/family and health care team 4. Consult appropriate ancillary services (i.e.. PT/OT/ST, etc) as needed 5. Communicate with and update the patient/family, physician, and health care team regarding progress on the discharge plan 6. Identify discharge learning needs (meds, wound care, etc). 7. Arrange for needed discharge transportation as appropriate Outcome: Progressing Note: Evaluation of progress towards goal: Pt to SNF upon discharge. Denies further needs at this time. Problem: Moderate - High Risk Fall Score Description: Sylvester Fall Score of =/> 25 or indicated by [facility] Assessment Goal: Patient should be free from fall Description: Interventions: 1. [place] to environment 2. Hourly rounds addressing the 4 P's (Pain, Positioning, Possessions, Potty) 3. Clear area of hazards (spills, clutter, electrical cords, unnecessary equipment) 4. Place equipment (bed & TV controls, call light, phone, urinal) within reach 5. Encourage patient to wear glasses and hearing aides as appropriate 6. Maintain bed in lowest position 7. Lock wheels on bed/wheelchair 8. Provide adequate lighting, including night light 9. Assess need for additional bedding, food/fluids, pain med's prior to sleep/routinely 10. Provide gripper slippers or personal non-skid footwear 11. Teach patient and patient business services sales representative to maintain environment for safety and engage in all aspects of fall prevention program 12. Remind patient to call for help before getting out of bed 13. Initiate bed/chair/exit alarms supportive devices as appropriate, (chair wedge, no-skid floor mat, raised edge mattress, hip protectors) 14. Locate patient bed assignment for optimal visualization 15. Evaluate and identify Safe Patient Handling Equipment needs 16. Provide supervision when out of bed or chair 17. Utilize gait belt as needed to assist with ambulation 18. Place adaptive equipment (cane, walker) within reach 19. Request patient business services sales representative bring adaptive equipment/mobility aids from home or obtain and provide as needed 20. Consult pharmacy regarding effects of med's affecting mobility, cognition, and alternatives 21. Obtain physician order for PT if risk factors associated with mobility are present 22. Obtain physician order for OT as appropriate 23. Utilize diversional activities 24. Educate patient and patient business services sales representative how to maintain a safe environment during visitation times (notify nurse prior to leaving bedside) 25. Consider appropriateness of medical or non-medical research associate 26. Set up voiding schedule as appropriate (every 2 hours) Outcome: Progressing Note: Evaluation of progress towards goal: Area clear of hazards, adequate lighting, bed locked and in lowest position, and call light within reach. DISCHARGE PLANNING NOTE SW attempted to gather additional choices but patient was not feeling well per RN. List provided at bedside. Will follow up in the AM - SHANNA CORNELIUS 01/02/24 3:03 PM Most recent images of wounds reviewed with Dr Kiran. No need for further surgical wound debridement noted by Dr Kiran at this time. Will continue to follow the patient for wound care. Lashaun Goldsmith DNP,[facility], [facility] Service [facility] Pager #[phone] Mon-Sat 8a-4:00p [phone] Lashaun Goldsmith APRN-ERICKA 01/02/24 1343 Problem: Safety Goal: Patient will be injury free during hospitalization Description: INTERVENTIONS: 1. Assess patient's risk for falls and implement fall prevention plan of care per policy 2. Provide and maintain a safe environment 3. Proper use of double Identifiers 4. Medication administration using the 5 rights 5. Hand hygiene 6. Specimens are labeled at the bedside 7. Instruct patient/ patient business services sales representative about use of safety devices 8. Include patient/ patient business services sales representative in decisions related to safety Outcome: Progressing Note: Evaluation of progress towards goal: Fall precautions in place. Patient remains free from injury. Problem: Moderate - High Risk Fall Score Description: Sylvester Fall Score of =/> 25 or indicated by [facility] Assessment Goal: Patient should be free from fall Description: Interventions: 1. [place] to environment 2. Hourly rounds addressing the 4 P's (Pain, Positioning, Possessions, Potty) 3. Clear area of hazards (spills, clutter, electrical cords, unnecessary equipment) 4. Place equipment (bed & TV controls, call light, phone, urinal) within reach 5. Encourage patient to wear glasses and hearing aides as appropriate 6. Maintain bed in lowest position 7. Lock wheels on bed/wheelchair 8. Provide adequate lighting, including night light 9. Assess need for additional bedding, food/fluids, pain med's prior to sleep/routinely 10. Provide gripper slippers or personal non-skid footwear 11. Teach patient and patient business services sales representative to maintain environment for safety and engage in all aspects of fall prevention program 12. Remind patient to call for help before getting out of bed 13. Initiate bed/chair/exit alarms supportive devices as appropriate, (chair wedge, no-skid floor mat, raised edge mattress, hip protectors) 14. Locate patient bed assignment for optimal visualization 15. Evaluate and identify Safe Patient Handling Equipment needs 16. Provide supervision when out of bed or chair 17. Utilize gait belt as needed to assist with ambulation 18. Place adaptive equipment (cane, walker) within reach 19. Request patient business services sales representative bring adaptive equipment/mobility aids from home or obtain and provide as needed 20. Consult pharmacy regarding effects of med's affecting mobility, cognition, and alternatives 21. Obtain physician order for PT if risk factors associated with mobility are present 22. Obtain physician order for OT as appropriate 23. Utilize diversional activities 24. Educate patient and patient business services sales representative how to maintain a safe environment during visitation times (notify nurse prior to leaving bedside) 25. Consider appropriateness of medical or non-medical research associate 26. Set up voiding schedule as appropriate (every 2 hours) Outcome: Progressing Note: Evaluation of progress towards goal: Bed locked and in lowest position. Personal items and call light within reach. Bed alarm set to highest setting. Patient remains free from injury at this time. Problem: Activity Intolerance/Impaired Mobility Goal: Mobility/activity is maintained at optimum level for patient Description: Patient's goal is: INTERVENTIONS 1. Assess and monitor patient barriers to mobility and need for assistive/adaptive devices 2. Assess patient's emotional response to limitations 3. Collaborate with interdisciplinary teams and initiate plans and interventions as ordered 4. Encourage independent activity per tolerance 5. Maintain proper body alignment 6. Perform active/passive ROM as tolerated/ordered 7. Coordinate activities to conserve energy 8. Reposition patient 9. Ensure adequate rest/sleep time Outcome: Progressing Note: Evaluation of progress towards goal: Encouraging mobility per patients tolerance level. Problem: Pain Goal: Patient goal is pain score less than 4, able to rest, and participant in treatment plan as appropriate Description: INTERVENTIONS: 1. Encourage patient or legal business services sales representative to report early pain and ask for pain medicine when needed 2. Assess pain using appropriate pain scale and include the scale used when documenting 3. Administer analgesics based on type and severity of pain and evaluate response within appropriate time frame 4. Implement non-pharmacological measures as appropriate and evaluate response 5. Consider cultural and social influences on pain and pain management 8. Reassess pain per policy 9. Teach patient or legal business services sales representative interventions for comforting Outcome: Progressing Note: Evaluation of progress towards goal: Patient given prn pain medications as needed, will monitor. Problem: Safety Goal: Patient will be injury free during hospitalization Description: INTERVENTIONS: 1. Assess patient's risk for falls and implement fall prevention plan of care per policy 2. Provide and maintain a safe environment 3. Proper use of double Identifiers 4. Medication administration using the 5 rights 5. Hand hygiene 6. Specimens are labeled at the bedside 7. Instruct patient/ patient business services sales representative about use of safety devices 8. Include patient/ patient business services sales representative in decisions related to safety Outcome: Progressing Note: Evaluation of progress towards goal: patient safety maintained, call light in reach, will monitor. Problem: Infection Goal: Absence of infection during hospitalization Description: Interventions: 1. Assess and monitor for signs and symptoms of infection 2. Monitor lab/diagnostic results 3. Monitor all insertion sites i.e., indwelling lines, tubes and drains 4. Monitor endotracheal (as able) and nasal secretions for changes in amount and color 5. Administer medications as ordered 6. Instruct and encourage patient and family to use good hand hygiene technique 7. Identify and instruct patient/patient business services sales representative in use of appropriate isolation precautions for identified infection/symptoms 8. Provide and discuss with patient/patient business services sales representative on educational MDRO sheet 9. Encourage and monitor nutritional status daily and consult heater helper forge if indicated 10. Implement neutropenic guidelines as needed 11. Review exposure to history of communicable disease and recent travel history on admission 12. Encourage annual influenza vaccine 13. Encourage pneumonia vaccine Outcome: Progressing Note: Evaluation of progress towards goal: patient remains free from infection, will monitor. Problem: Knowledge Deficit Goal: Patient/patient business services sales representative demonstrates understanding of disease process, treatment plan, medications, and discharge instructions Description: INTERVENTIONS 1. Complete learning assessment and assess knowledge base 2. Provide teaching at level of understanding 3. Provide teaching via preferred learning method(s) Outcome: Progressing Note: Evaluation of progress towards goal: poc discussed with patient, will monitor. Problem: Glucose Imbalance Goal: Clinical indication of glucose balance is achieved Description: Patient's goal is: INTERVENTIONS 1. Monitor blood glucose levels as ordered 2. Administer medications as ordered 3. Notify physician of ineffective treatment plan Outcome: Progressing Note: Evaluation of progress towards goal:Patient give insulin per sliding scale Problem: Potential for Compromised Skin Integrity Goal: Skin integrity is maintained or improved Description: Patient's goal is: INTERVENTIONS 1. Perform initial skin assessment on admission and as needed 2. Turn patient every 2 hours and PRN 3. Relieve pressure to bony prominences 4. Avoid shearing 5. Keep skin clean and dry 6. Alternate a full bath with partial baths for elderly 7. Encourage use of lotion/moisturizer on skin 8. Monitor patient's hygiene practices 9. Float heels 10. Collaborate with interdisciplinary team and initiate plans and interventions as needed Outcome: Progressing Note: Evaluation of progress towards goal: patient has no new skin issues, will monitor. Problem: Moderate - High Risk Fall Score Description: Constantia Fall Score of =/> 25 or indicated by [facility] Assessment Goal: Patient should be free from fall Description: Interventions: 1. [place] to environment 2. Hourly rounds addressing the 4 P's (Pain, Positioning, Possessions, Potty) 3. Clear area of hazards (spills, clutter, electrical cords, unnecessary equipment) 4. Place equipment (bed & TV controls, call light, phone, urinal) within reach 5. Encourage patient to wear glasses and hearing aides as appropriate 6. Maintain bed in lowest position 7. Lock wheels on bed/wheelchair 8. Provide adequate lighting, including night light 9. Assess need for additional bedding, food/fluids, pain med's prior to sleep/routinely 10. Provide gripper slippers or personal non-skid footwear 11. Teach patient and patient business services sales representative to maintain environment for safety and engage in all aspects of fall prevention program 12. Remind patient to call for help before getting out of bed 13. Initiate bed/chair/exit alarms supportive devices as appropriate, (chair wedge, no-skid floor mat, raised edge mattress, hip protectors) 14. Locate patient bed assignment for optimal visualization 15. Evaluate and identify Safe Patient Handling Equipment needs 16. Provide supervision when out of bed or chair 17. Utilize gait belt as needed to assist with ambulation 18. Place adaptive equipment (cane, walker) within reach 19. Request patient business services sales representative bring adaptive equipment/mobility aids from home or obtain and provide as needed 20. Consult pharmacy regarding effects of med's affecting mobility, cognition, and alternatives 21. Obtain physician order for PT if risk factors associated with mobility are present 22. Obtain physician order for OT as appropriate 23. Utilize diversional activities 24. Educate patient and patient business services sales representative how to maintain a safe environment during visitation times (notify nurse prior to leaving bedside) 25. Consider appropriateness of medical or non-medical research associate 26. Set up voiding schedule as appropriate (every 2 hours) Outcome: Progressing Note: Evaluation of progress towards goal: patient remains free from fall, call light in reach, will monitor. Problem: Pain Goal: Patient goal is pain score less than 4, able to rest, and participant in treatment plan as appropriate Description: INTERVENTIONS: 1. Encourage patient or legal business services sales representative to report early pain and ask for pain medicine when needed 2. Assess pain using appropriate pain scale and include the scale used when documenting 3. Administer analgesics based on type and severity of pain and evaluate response within appropriate time frame 4. Implement non-pharmacological measures as appropriate and evaluate response 5. Consider cultural and social influences on pain and pain management 8. Reassess pain per policy 9. Teach patient or legal business services sales representative interventions for comforting Outcome: Progressing Note: Evaluation of progress towards goal: Patient states pain is manageable with current plan. Problem: Safety Goal: Patient will be injury free during hospitalization Description: INTERVENTIONS: 1. Assess patient's risk for falls and implement fall prevention plan of care per policy 2. Provide and maintain a safe environment 3. Proper use of double Identifiers 4. Medication administration using the 5 rights 5. Hand hygiene 6. Specimens are labeled at the bedside 7. Instruct patient/ patient business services sales representative about use of safety devices 8. Include patient/ patient business services sales representative in decisions related to safety Outcome: Progressing Note: Evaluation of progress towards goal: Fall precautions in place. Patient remains free from injury. Problem: Moderate - High Risk Fall Score Description: Sylvester Fall Score of =/> 25 or indicated by [facility] Assessment Goal: Patient should be free from fall Description: Interventions: 1. [place] to environment 2. Hourly rounds addressing the 4 P's (Pain, Positioning, Possessions, Potty) 3. Clear area of hazards (spills, clutter, electrical cords, unnecessary equipment) 4. Place equipment (bed & TV controls, call light, phone, urinal) within reach 5. Encourage patient to wear glasses and hearing aides as appropriate 6. Maintain bed in lowest position 7. Lock wheels on bed/wheelchair 8. Provide adequate lighting, including night light 9. Assess need for additional bedding, food/fluids, pain med's prior to sleep/routinely 10. Provide gripper slippers or personal non-skid footwear 11. Teach patient and patient business services sales representative to maintain environment for safety and engage in all aspects of fall prevention program 12. Remind patient to call for help before getting out of bed 13. Initiate bed/chair/exit alarms supportive devices as appropriate, (chair wedge, no-skid floor mat, raised edge mattress, hip protectors) 14. Locate patient bed assignment for optimal visualization 15. Evaluate and identify Safe Patient Handling Equipment needs 16. Provide supervision when out of bed or chair 17. Utilize gait belt as needed to assist with ambulation 18. Place adaptive equipment (cane, walker) within reach 19. Request patient business services sales representative bring adaptive equipment/mobility aids from home or obtain and provide as needed 20. Consult pharmacy regarding effects of med's affecting mobility, cognition, and alternatives 21. Obtain physician order for PT if risk factors associated with mobility are present 22. Obtain physician order for OT as appropriate 23. Utilize diversional activities 24. Educate patient and patient business services sales representative how to maintain a safe environment during visitation times (notify nurse prior to leaving bedside) 25. Consider appropriateness of medical or non-medical research associate 26. Set up voiding schedule as appropriate (every 2 hours) Outcome: Progressing Note: Evaluation of progress towards goal: Bed locked and in lowest position. Personal items and call light within reach. Bed alarm set to highest setting. Patient remains free from injury at this time. DISCHARGE PLANNING NOTE Referral sent to [facility] (P# ; F# ) DISCHARGE PLANNING NOTE SW spoke to pt at bedside about discharge plans. Pt still had not made any SNF decisions but gave SW permission to speak to sister about choices. Phone call to Angela, SNF list reviewed with her and she would like a referral sent to [facility] tasked for referral. SNF list sent to sisters phone. - SHANNA CORNELIUS 12/31/23 11:56 AM Problem: Pain Goal: Patient goal is pain score less than 4, able to rest, and participant in treatment plan as appropriate Description: INTERVENTIONS: 1. Encourage patient or legal business services sales representative to report early pain and ask for pain medicine when needed 2. Assess pain using appropriate pain scale and include the scale used when documenting 3. Administer analgesics based on type and severity of pain and evaluate response within appropriate time frame 4. Implement non-pharmacological measures as appropriate and evaluate response 5. Consider cultural and social influences on pain and pain management 8. Reassess pain per policy 9. Teach patient or legal business services sales representative interventions for comforting Outcome: Progressing Note: Evaluation of progress towards goal: pt says po and iv pain meds are controling pain Problem: Safety Goal: Patient will be injury free during hospitalization Description: INTERVENTIONS: 1. Assess patient's risk for falls and implement fall prevention plan of care per policy 2. Provide and maintain a safe environment 3. Proper use of double Identifiers 4. Medication administration using the 5 rights 5. Hand hygiene 6. Specimens are labeled at the bedside 7. Instruct patient/ patient business services sales representative about use of safety devices 8. Include patient/ patient business services sales representative in decisions related to safety Outcome: Progressing Note: Evaluation of progress towards goal: pt free from falls this shift Problem: Infection Goal: Absence of infection during hospitalization Description: Interventions: 1. Assess and monitor for signs and symptoms of infection 2. Monitor lab/diagnostic results 3. Monitor all insertion sites i.e., indwelling lines, tubes and drains 4. Monitor endotracheal (as able) and nasal secretions for changes in amount and color 5. Administer medications as ordered 6. Instruct and encourage patient and family to use good hand hygiene technique 7. Identify and instruct patient/patient business services sales representative in use of appropriate isolation precautions for identified infection/symptoms 8. Provide and discuss with patient/patient business services sales representative on educational MDRO sheet 9. Encourage and monitor nutritional status daily and consult heater helper forge if indicated 10. Implement neutropenic guidelines as needed 11. Review exposure to history of communicable disease and recent travel history on admission 12. Encourage annual influenza vaccine 13. Encourage pneumonia vaccine Outcome: Progressing Note: Evaluation of progress towards goal: pt afebrile-cont iv antibiotics Problem: Knowledge Deficit Goal: Patient/patient business services sales representative demonstrates understanding of disease process, treatment plan, medications, and discharge instructions Description: INTERVENTIONS 1. Complete learning assessment and assess knowledge base 2. Provide teaching at level of understanding 3. Provide teaching via preferred learning method(s) Outcome: Progressing Note: Evaluation of progress towards goal: pt updated on poc Problem: Pain Goal: Patient goal is pain score less than 4, able to rest, and participant in treatment plan as appropriate Description: INTERVENTIONS: 1. Encourage patient or legal business services sales representative to report early pain and ask for pain medicine when needed 2. Assess pain using appropriate pain scale and include the scale used when documenting 3. Administer analgesics based on type and severity of pain and evaluate response within appropriate time frame 4. Implement non-pharmacological measures as appropriate and evaluate response 5. Consider cultural and social influences on pain and pain management 8. Reassess pain per policy 9. Teach patient or legal business services sales representative interventions for comforting Outcome: Progressing Note: Evaluation of progress towards goal: Pain managed with current medications. Administer as needed. Problem: Safety Goal: Patient will be injury free during hospitalization Description: INTERVENTIONS: 1. Assess patient's risk for falls and implement fall prevention plan of care per policy 2. Provide and maintain a safe environment 3. Proper use of double Identifiers 4. Medication administration using the 5 rights 5. Hand hygiene 6. Specimens are labeled at the bedside 7. Instruct patient/ patient business services sales representative about use of safety devices 8. Include patient/ patient business services sales representative in decisions related to safety Outcome: Progressing Note: Evaluation of progress towards goal: No injuries so far this shift. Assist with ambulation using rasheed stedy Problem: Infection Goal: Absence of infection during hospitalization Description: Interventions: 1. Assess and monitor for signs and symptoms of infection 2. Monitor lab/diagnostic results 3. Monitor all insertion sites i.e., indwelling lines, tubes and drains 4. Monitor endotracheal (as able) and nasal secretions for changes in amount and color 5. Administer medications as ordered 6. Instruct and encourage patient and family to use good hand hygiene technique 7. Identify and instruct patient/patient business services sales representative in use of appropriate isolation precautions for identified infection/symptoms 8. Provide and discuss with patient/patient business services sales representative on educational MDRO sheet 9. Encourage and monitor nutritional status daily and consult heater helper forge if indicated 10. Implement neutropenic guidelines as needed 11. Review exposure to history of communicable disease and recent travel history on admission 12. Encourage annual influenza vaccine 13. Encourage pneumonia vaccine Outcome: Progressing Note: Evaluation of progress towards goal: [place] precautions maintained. Problem: Knowledge Deficit Goal: Patient/patient business services sales representative demonstrates understanding of disease process, treatment plan, medications, and discharge instructions Description: INTERVENTIONS 1. Complete learning assessment and assess knowledge base 2. Provide teaching at level of understanding 3. Provide teaching via preferred learning method(s) Outcome: Progressing Note: Evaluation of progress towards goal: Ongoing. Problem: Discharge Planning Goal: Discharge to post-acute care, other facility, or home with appropriate resources Description: Patient's goal is: INTERVENTIONS 1. Conduct assessment to determine patient/family and health care team treatment goals, and need for post-acute services based on payer coverage, community resources, and patient preferences, and barriers to discharge 2. Coordinate with Social work, Care Navigation, and Utilization Review to arrange appropriate level of services according to patient's needs based on patient preference and payer coverage in collaboration with the physician and health care team 3. Address psychosocial, clinical, and financial barriers to discharge as identified in assessment in conjunction with the patient/family and health care team 4. Consult appropriate ancillary services (i.e.. PT/OT/ST, etc) as needed 5. Communicate with and update the patient/family, physician, and health care team regarding progress on the discharge plan 6. Identify discharge learning needs (meds, wound care, etc). 7. Arrange for needed discharge transportation as appropriate Outcome: Progressing Note: Evaluation of progress towards goal: Discharge planning in progress. Problem: Glucose Imbalance Goal: Clinical indication of glucose balance is achieved Description: Patient's goal is: INTERVENTIONS 1. Monitor blood glucose levels as ordered 2. Administer medications as ordered 3. Notify physician of ineffective treatment plan Outcome: Progressing Note: Evaluation of progress towards goal: Ongoing. Goal: Patient's discharge needs are met Description: Patient's goal is: INTERVENTIONS 1. Assess patient for self-management skills 2. Encourage participation in diabetes management 3. Identify potential discharge barriers on admission and throughout hospital stay 4. Involve patient/S.O. in discharge planning process 5. Communicate referral to natural resources extension educator as appropriate 6. Communicate referral to heater helper forge as appropriate 7. Collaborate with case management/social work faculty member for discharge needs Outcome: Progressing Note: Evaluation of progress towards goal: To be determined. Discharge planning in progress. Problem: Potential for Compromised Skin Integrity Goal: Skin integrity is maintained or improved Description: Patient's goal is: INTERVENTIONS 1. Perform initial skin assessment on admission and as needed 2. Turn patient every 2 hours and PRN 3. Relieve pressure to bony prominences 4. Avoid shearing 5. Keep skin clean and dry 6. Alternate a full bath with partial baths for elderly 7. Encourage use of lotion/moisturizer on skin 8. Monitor patient's hygiene practices 9. Float heels 10. Collaborate with interdisciplinary team and initiate plans and interventions as needed Outcome: Progressing Note: Evaluation of progress towards goal: Ongoing. Problem: Moderate - High Risk Fall Score Description: Sylvester Fall Score of =/> 25 or indicated by [facility] Assessment Goal: Patient should be free from fall Description: Interventions: 1. [place] to environment 2. Hourly rounds addressing the 4 P's (Pain, Positioning, Possessions, Potty) 3. Clear area of hazards (spills, clutter, electrical cords, unnecessary equipment) 4. Place equipment (bed & TV controls, call light, phone, urinal) within reach 5. Encourage patient to wear glasses and hearing aides as appropriate 6. Maintain bed in lowest position 7. Lock wheels on bed/wheelchair 8. Provide adequate lighting, including night light 9. Assess need for additional bedding, food/fluids, pain med's prior to sleep/routinely 10. Provide gripper slippers or personal non-skid footwear 11. Teach patient and patient business services sales representative to maintain environment for safety and engage in all aspects of fall prevention program 12. Remind patient to call for help before getting out of bed 13. Initiate bed/chair/exit alarms supportive devices as appropriate, (chair wedge, no-skid floor mat, raised edge mattress, hip protectors) 14. Locate patient bed assignment for optimal visualization 15. Evaluate and identify Safe Patient Handling Equipment needs 16. Provide supervision when out of bed or chair 17. Utilize gait belt as needed to assist with ambulation 18. Place adaptive equipment (cane, walker) within reach 19. Request patient business services sales representative bring adaptive equipment/mobility aids from home or obtain and provide as needed 20. Consult pharmacy regarding effects of med's affecting mobility, cognition, and alternatives 21. Obtain physician order for PT if risk factors associated with mobility are present 22. Obtain physician order for OT as appropriate 23. Utilize diversional activities 24. Educate patient and patient business services sales representative how to maintain a safe environment during visitation times (notify nurse prior to leaving bedside) 25. Consider appropriateness of medical or non-medical research associate 26. Set up voiding schedule as appropriate (every 2 hours) Outcome: Progressing Note: Evaluation of progress towards goal: Fall precautions maintained. Problem: Hemodynamic Status Goal: Maintains optimal cardiac output and hemodynamic stability Description: Patient's goal is: INTERVENTIONS 1. Assess and monitor patient's heart rate, rhythm, respiratory rate, peripheral pulses, capillary refill, color, body temperature, intake and output 2. Monitor labs and diagnostic testing 3. Observe for signs of chest pain (note location, duration, severity, radiation and associated symptoms such as diaphoresis, nausea, indigestion) 4. Monitor for signs and symptoms of heart failure (i.e. shortness of breath, edema of feet/ankles/legs, rapid irregular heart rate, coughing, wheezing, white/pink blood tinged sputum, sudden weight gain, chest pain) 5. Plan activities to conserve energy 6. Monitor for signs and symptoms of bleeding Outcome: Progressing Note: Evaluation of progress towards goal: Ongoing. Problem: Excessive Fluid Volume Goal: Fluid and electrolyte balance are achieved/maintained Description: INTERVENTIONS 1. Monitor vitals signs oxygen saturation, respiratory status to include rate, depth, effort, and lung sounds, ) urine color, labs, edema, jugular venous distention, and mental status 2. Monitor patient's weight 3. Monitor intake and output 4. Elevate head of bed 30 degrees 5. Turn patient 6. Monitor low sodium and fluid restriction diet per physician order 7. Collaborate with interdisciplinary team and initiate plan and interventions as ordered Outcome: Progressing Note: Evaluation of progress towards goal: Ongoing. Problem: Inadequate Gas Exchange Goal: Patient is adequately oxygenated and ventilation is improved Description: Patient's goal is: INTERVENTIONS 1. Monitor vital signs, oxygen saturation, respiratory status to include rate, depth, effort, lung sounds, mental status, cyanosis, and labs (ABGs) 2. Administer oxygen as indicated 3. Position patient to optimize gas exchange 4. Instruct patient to turn, cough, and deep breathe; encourage incentive spirometer if indicated 5. Collaborate with Respiratory Therapy for inhaled medication and therapeutic adjuncts 6. Assess skin when indicated 7. Coordinate care and interventions to conserve energy 8. Educate and offer resources for tobacco cessation, if indicated Outcome: Progressing Note: Evaluation of progress towards goal: Oxygen by nasal cannula at HS. Room air daytime. Problem: Activity Intolerance/Impaired Mobility Goal: Mobility/activity is maintained at optimum level for patient Description: Patient's goal is: INTERVENTIONS 1. Assess and monitor patient barriers to mobility and need for assistive/adaptive devices 2. Assess patient's emotional response to limitations 3. Collaborate with interdisciplinary teams and initiate plans and interventions as ordered 4. Encourage independent activity per tolerance 5. Maintain proper body alignment 6. Perform active/passive ROM as tolerated/ordered 7. Coordinate activities to conserve energy 8. Reposition patient 9. Ensure adequate rest/sleep time Outcome: Progressing Note: Evaluation of progress towards goal: Ongoing. DISCHARGE PLANNING NOTE SW met with patient, introduced self and explained role. Patient stated he has not had an opportunity to review SNF list as he wants to speak to his sister about it. Per patient, sister is coming to visit today. SW will follow up in the AM for choices - SHANNA CORNELIUS 12/30/23 2:09 PM Problem: Pain Goal: Patient goal is pain score less than 4, able to rest, and participant in treatment plan as appropriate Description: INTERVENTIONS: 1. Encourage patient or legal business services sales representative to report early pain and ask for pain medicine when needed 2. Assess pain using appropriate pain scale and include the scale used when documenting 3. Administer analgesics based on type and severity of pain and evaluate response within appropriate time frame 4. Implement non-pharmacological measures as appropriate and evaluate response 5. Consider cultural and social influences on pain and pain management 8. Reassess pain per policy 9. Teach patient or legal business services sales representative interventions for comforting Outcome: Progressing Note: Evaluation of progress towards goal: pt says po and iv pain meds are keeping pain controled Problem: Safety Goal: Patient will be injury free during hospitalization Description: INTERVENTIONS: 1. Assess patient's risk for falls and implement fall prevention plan of care per policy 2. Provide and maintain a safe environment 3. Proper use of double Identifiers 4. Medication administration using the 5 rights 5. Hand hygiene 6. Specimens are labeled at the bedside 7. Instruct patient/ patient business services sales representative about use of safety devices 8. Include patient/ patient business services sales representative in decisions related to safety Outcome: Progressing Note: Evaluation of progress towards goal: pt free from falls this shift Problem: Infection Goal: Absence of infection during hospitalization Description: Interventions: 1. Assess and monitor for signs and symptoms of infection 2. Monitor lab/diagnostic results 3. Monitor all insertion sites i.e., indwelling lines, tubes and drains 4. Monitor endotracheal (as able) and nasal secretions for changes in amount and color 5. Administer medications as ordered 6. Instruct and encourage patient and family to use good hand hygiene technique 7. Identify and instruct patient/patient business services sales representative in use of appropriate isolation precautions for identified infection/symptoms 8. Provide and discuss with patient/patient business services sales representative on educational MDRO sheet 9. Encourage and monitor nutritional status daily and consult heater helper forge if indicated 10. Implement neutropenic guidelines as needed 11. Review exposure to history of communicable disease and recent travel history on admission 12. Encourage annual influenza vaccine 13. Encourage pneumonia vaccine Outcome: Progressing Note: Evaluation of progress towards goal: pt afebrile-cont to monitor Problem: Knowledge Deficit Goal: Patient/patient business services sales representative demonstrates understanding of disease process, treatment plan, medications, and discharge instructions Description: INTERVENTIONS 1. Complete learning assessment and assess knowledge base 2. Provide teaching at level of understanding 3. Provide teaching via preferred learning method(s) Outcome: Progressing Note: Evaluation of progress towards goal: pt updated on poc Patient admitted for cellulitis of the BLE, with a history of diabetes, HTN, CKD, COPD, CAD, afib, and lymphedema. A&Ox4. BLE 3+ pitting edema. One small bowel movement. Current vitals are as follows: BP 103/58 Pulse 105 Temp 36.7 C (98 F) (Oral) Resp 18 Ht 180.3 cm (5' 10.98 ) Wt 106.7 kg (235 lb 3.7 oz) SpO2 93% BMI 32.82 kg/m on room air. Patient currently awake with call light at bedside. Plan for SNF placement. Plan of care ongoing. Problem: Pain Goal: Patient goal is pain score less than 4, able to rest, and participant in treatment plan as appropriate Description: INTERVENTIONS: 1. Encourage patient or legal business services sales representative to report early pain and ask for pain medicine when needed 2. Assess pain using appropriate pain scale and include the scale used when documenting 3. Administer analgesics based on type and severity of pain and evaluate response within appropriate time frame 4. Implement non-pharmacological measures as appropriate and evaluate response 5. Consider cultural and social influences on pain and pain management 8. Reassess pain per policy 9. Teach patient or legal business services sales representative interventions for comforting Outcome: Progressing Note: Evaluation of progress towards goal: pain medications given throughout shift Problem: Safety Goal: Patient will be injury free during hospitalization Description: INTERVENTIONS: 1. Assess patient's risk for falls and implement fall prevention plan of care per policy 2. Provide and maintain a safe environment 3. Proper use of double Identifiers 4. Medication administration using the 5 rights 5. Hand hygiene 6. Specimens are labeled at the bedside 7. Instruct patient/ patient business services sales representative about use of safety devices 8. Include patient/ patient business services sales representative in decisions related to safety Outcome: Progressing Note: Evaluation of progress towards goal: no injury during shift Problem: Knowledge Deficit Goal: Patient/patient business services sales representative demonstrates understanding of disease process, treatment plan, medications, and discharge instructions Description: INTERVENTIONS 1. Complete learning assessment and assess knowledge base 2. Provide teaching at level of understanding 3. Provide teaching via preferred learning method(s) Outcome: Progressing Note: Evaluation of progress towards goal: patient understand plan of care Problem: Discharge Planning Goal: Discharge to post-acute care, other facility, or home with appropriate resources Description: Patient's goal is: INTERVENTIONS 1. Conduct assessment to determine patient/family and health care team treatment goals, and need for post-acute services based on payer coverage, community resources, and patient preferences, and barriers to discharge 2. Coordinate with Social work, Care Navigation, and Utilization Review to arrange appropriate level of services according to patient's needs based on patient preference and payer coverage in collaboration with the physician and health care team 3. Address psychosocial, clinical, and financial barriers to discharge as identified in assessment in conjunction with the patient/family and health care team 4. Consult appropriate ancillary services (i.e.. PT/OT/ST, etc) as needed 5. Communicate with and update the patient/family, physician, and health care team regarding progress on the discharge plan 6. Identify discharge learning needs (meds, wound care, etc). 7. Arrange for needed discharge transportation as appropriate Outcome: Progressing Problem: Glucose Imbalance Goal: Clinical indication of glucose balance is achieved Description: Patient's goal is: INTERVENTIONS 1. Monitor blood glucose levels as ordered 2. Administer medications as ordered 3. Notify physician of ineffective treatment plan Outcome: Progressing Goal: Patient's discharge needs are met Description: Patient's goal is: INTERVENTIONS 1. Assess patient for self-management skills 2. Encourage participation in diabetes management 3. Identify potential discharge barriers on admission and throughout hospital stay 4. Involve patient/S.O. in discharge planning process 5. Communicate referral to natural resources extension educator as appropriate 6. Communicate referral to heater helper forge as appropriate 7. Collaborate with case management/social work faculty member for discharge needs Outcome: Progressing Problem: Potential for Compromised Skin Integrity Goal: Skin integrity is maintained or improved Description: Patient's goal is: INTERVENTIONS 1. Perform initial skin assessment on admission and as needed 2. Turn patient every 2 hours and PRN 3. Relieve pressure to bony prominences 4. Avoid shearing 5. Keep skin clean and dry 6. Alternate a full bath with partial baths for elderly 7. Encourage use of lotion/moisturizer on skin 8. Monitor patient's hygiene practices 9. Float heels 10. Collaborate with interdisciplinary team and initiate plans and interventions as needed Outcome: Progressing Problem: Moderate - High Risk Fall Score Description: Sylvester Fall Score of =/> 25 or indicated by [facility] Assessment Goal: Patient should be free from fall Description: Interventions: 1. [place] to environment 2. Hourly rounds addressing the 4 P's (Pain, Positioning, Possessions, Potty) 3. Clear area of hazards (spills, clutter, electrical cords, unnecessary equipment) 4. Place equipment (bed & TV controls, call light, phone, urinal) within reach 5. Encourage patient to wear glasses and hearing aides as appropriate 6. Maintain bed in lowest position 7. Lock wheels on bed/wheelchair 8. Provide adequate lighting, including night light 9. Assess need for additional bedding, food/fluids, pain med's prior to sleep/routinely 10. Provide gripper slippers or personal non-skid footwear 11. Teach patient and patient business services sales representative to maintain environment for safety and engage in all aspects of fall prevention program 12. Remind patient to call for help before getting out of bed 13. Initiate bed/chair/exit alarms supportive devices as appropriate, (chair wedge, no-skid floor mat, raised edge mattress, hip protectors) 14. Locate patient bed assignment for optimal visualization 15. Evaluate and identify Safe Patient Handling Equipment needs 16. Provide supervision when out of bed or chair 17. Utilize gait belt as needed to assist with ambulation 18. Place adaptive equipment (cane, walker) within reach 19. Request patient business services sales representative bring adaptive equipment/mobility aids from home or obtain and provide as needed 20. Consult pharmacy regarding effects of med's affecting mobility, cognition, and alternatives 21. Obtain physician order for PT if risk factors associated with mobility are present 22. Obtain physician order for OT as appropriate 23. Utilize diversional activities 24. Educate patient and patient business services sales representative how to maintain a safe environment during visitation times (notify nurse prior to leaving bedside) 25. Consider appropriateness of medical or non-medical research associate 26. Set up voiding schedule as appropriate (every 2 hours) Outcome: Progressing Note: Evaluation of progress towards goal: free of falls throughout shift Problem: Hemodynamic Status Goal: Maintains optimal cardiac output and hemodynamic stability Description: Patient's goal is: INTERVENTIONS 1. Assess and monitor patient's heart rate, rhythm, respiratory rate, peripheral pulses, capillary refill, color, body temperature, intake and output 2. Monitor labs and diagnostic testing 3. Observe for signs of chest pain (note location, duration, severity, radiation and associated symptoms such as diaphoresis, nausea, indigestion) 4. Monitor for signs and symptoms of heart failure (i.e. shortness of breath, edema of feet/ankles/legs, rapid irregular heart rate, coughing, wheezing, white/pink blood tinged sputum, sudden weight gain, chest pain) 5. Plan activities to conserve energy 6. Monitor for signs and symptoms of bleeding Outcome: Progressing Problem: Excessive Fluid Volume Goal: Fluid and electrolyte balance are achieved/maintained Description: INTERVENTIONS 1. Monitor vitals signs oxygen saturation, respiratory status to include rate, depth, effort, and lung sounds, ) urine color, labs, edema, jugular venous distention, and mental status 2. Monitor patient's weight 3. Monitor intake and output 4. Elevate head of bed 30 degrees 5. Turn patient 6. Monitor low sodium and fluid restriction diet per physician order 7. Collaborate with interdisciplinary team and initiate plan and interventions as ordered Outcome: Progressing Problem: Inadequate Gas Exchange Goal: Patient is adequately oxygenated and ventilation is improved Description: Patient's goal is: INTERVENTIONS 1. Monitor vital signs, oxygen saturation, respiratory status to include rate, depth, effort, lung sounds, mental status, cyanosis, and labs (ABGs) 2. Administer oxygen as indicated 3. Position patient to optimize gas exchange 4. Instruct patient to turn, cough, and deep breathe; encourage incentive spirometer if indicated 5. Collaborate with Respiratory Therapy for inhaled medication and therapeutic adjuncts 6. Assess skin when indicated 7. Coordinate care and interventions to conserve energy 8. Educate and offer resources for tobacco cessation, if indicated Outcome: Progressing Flowsheets (Taken 12/30/2023 0424) Chest Assessment: Chest expansion symmetrical Problem: Activity Intolerance/Impaired Mobility Goal: Mobility/activity is maintained at optimum level for patient Description: Patient's goal is: INTERVENTIONS 1. Assess and monitor patient barriers to mobility and need for assistive/adaptive devices 2. Assess patient's emotional response to limitations 3. Collaborate with interdisciplinary teams and initiate plans and interventions as ordered 4. Encourage independent activity per tolerance 5. Maintain proper body alignment 6. Perform active/passive ROM as tolerated/ordered 7. Coordinate activities to conserve energy 8. Reposition patient 9. Ensure adequate rest/sleep time Outcome: Progressing Kendal Obrien RN Problem: Pain Goal: Patient goal is pain score less than 4, able to rest, and participant in treatment plan as appropriate Description: INTERVENTIONS: 1. Encourage patient or legal business services sales representative to report early pain and ask for pain medicine when needed 2. Assess pain using appropriate pain scale and include the scale used when documenting 3. Administer analgesics based on type and severity of pain and evaluate response within appropriate time frame 4. Implement non-pharmacological measures as appropriate and evaluate response 5. Consider cultural and social influences on pain and pain management 8. Reassess pain per policy 9. Teach patient or legal business services sales representative interventions for comforting Outcome: Not Progressing Note: Evaluation of progress towards goal: Patient still c/o intense pain related to his legs; attending updated and aware; con't current PRNs Problem: Discharge Planning Goal: Discharge to post-acute care, other facility, or home with appropriate resources Description: Patient's goal is: INTERVENTIONS 1. Conduct assessment to determine patient/family and health care team treatment goals, and need for post-acute services based on payer coverage, community resources, and patient preferences, and barriers to discharge 2. Coordinate with Social work, Care Navigation, and Utilization Review to arrange appropriate level of services according to patient's needs based on patient preference and payer coverage in collaboration with the physician and health care team 3. Address psychosocial, clinical, and financial barriers to discharge as identified in assessment in conjunction with the patient/family and health care team 4. Consult appropriate ancillary services (i.e.. PT/OT/ST, etc) as needed 5. Communicate with and update the patient/family, physician, and health care team regarding progress on the discharge plan 6. Identify discharge learning needs (meds, wound care, etc). 7. Arrange for needed discharge transportation as appropriate Outcome: Progressing Note: Evaluation of progress towards goal: SNF placement Problem: Activity Intolerance/Impaired Mobility Goal: Mobility/activity is maintained at optimum level for patient Description: Patient's goal is: INTERVENTIONS 1. Assess and monitor patient barriers to mobility and need for assistive/adaptive devices 2. Assess patient's emotional response to limitations 3. Collaborate with interdisciplinary teams and initiate plans and interventions as ordered 4. Encourage independent activity per tolerance 5. Maintain proper body alignment 6. Perform active/passive ROM as tolerated/ordered 7. Coordinate activities to conserve energy 8. Reposition patient 9. Ensure adequate rest/sleep time Outcome: Progressing Note: Evaluation of progress towards goal: educated patient to increase movement and did agree to be up in the chair Problem: Pain Goal: Patient goal is pain score less than 4, able to rest, and participant in treatment plan as appropriate Description: INTERVENTIONS: 1. Encourage patient or legal business services sales representative to report early pain and ask for pain medicine when needed 2. Assess pain using appropriate pain scale and include the scale used when documenting 3. Administer analgesics based on type and severity of pain and evaluate response within appropriate time frame 4. Implement non-pharmacological measures as appropriate and evaluate response 5. Consider cultural and social influences on pain and pain management 8. Reassess pain per policy 9. Teach patient or legal business services sales representative interventions for comforting Outcome: Progressing Note: Evaluation of progress towards goal: Patient given prn pain medications as needed, will monitor. Problem: Safety Goal: Patient will be injury free during hospitalization Description: INTERVENTIONS: 1. Assess patient's risk for falls and implement fall prevention plan of care per policy 2. Provide and maintain a safe environment 3. Proper use of double Identifiers 4. Medication administration using the 5 rights 5. Hand hygiene 6. Specimens are labeled at the bedside 7. Instruct patient/ patient business services sales representative about use of safety devices 8. Include patient/ patient business services sales representative in decisions related to safety Outcome: Progressing Note: Evaluation of progress towards goal: patient safety maintained, call light in reach, will monitor. Problem: Infection Goal: Absence of infection during hospitalization Description: Interventions: 1. Assess and monitor for signs and symptoms of infection 2. Monitor lab/diagnostic results 3. Monitor all insertion sites i.e., indwelling lines, tubes and drains 4. Monitor endotracheal (as able) and nasal secretions for changes in amount and color 5. Administer medications as ordered 6. Instruct and encourage patient and family to use good hand hygiene technique 7. Identify and instruct patient/patient business services sales representative in use of appropriate isolation precautions for identified infection/symptoms 8. Provide and discuss with patient/patient business services sales representative on educational MDRO sheet 9. Encourage and monitor nutritional status daily and consult heater helper forge if indicated 10. Implement neutropenic guidelines as needed 11. Review exposure to history of communicable disease and recent travel history on admission 12. Encourage annual influenza vaccine 13. Encourage pneumonia vaccine Outcome: Progressing Note: Evaluation of progress towards goal: continuing to monitor patient labs and vitals Problem: Knowledge Deficit Goal: Patient/patient business services sales representative demonstrates understanding of disease process, treatment plan, medications, and discharge instructions Description: INTERVENTIONS 1. Complete learning assessment and assess knowledge base 2. Provide teaching at level of understanding 3. Provide teaching via preferred learning method(s) Outcome: Progressing Note: Evaluation of progress towards goal: poc discussed with patient, will monitor. Problem: Discharge Planning Goal: Discharge to post-acute care, other facility, or home with appropriate resources Description: Patient's goal is: INTERVENTIONS 1. Conduct assessment to determine patient/family and health care team treatment goals, and need for post-acute services based on payer coverage, community resources, and patient preferences, and barriers to discharge 2. Coordinate with Social work, Care Navigation, and Utilization Review to arrange appropriate level of services according to patient's needs based on patient preference and payer coverage in collaboration with the physician and health care team 3. Address psychosocial, clinical, and financial barriers to discharge as identified in assessment in conjunction with the patient/family and health care team 4. Consult appropriate ancillary services (i.e.. PT/OT/ST, etc) as needed 5. Communicate with and update the patient/family, physician, and health care team regarding progress on the discharge plan 6. Identify discharge learning needs (meds, wound care, etc). 7. Arrange for needed discharge transportation as appropriate Outcome: Progressing Note: Evaluation of progress towards goal: patient will be given discharge instructions, medications, and follow up appointments upon discharge, will monitor. Problem: Pain Goal: Patient goal is pain score less than 4, able to rest, and participant in treatment plan as appropriate Description: INTERVENTIONS: 1. Encourage patient or legal business services sales representative to report early pain and ask for pain medicine when needed 2. Assess pain using appropriate pain scale and include the scale used when documenting 3. Administer analgesics based on type and severity of pain and evaluate response within appropriate time frame 4. Implement non-pharmacological measures as appropriate and evaluate response 5. Consider cultural and social influences on pain and pain management 8. Reassess pain per policy 9. Teach patient or legal business services sales representative interventions for comforting Outcome: Not Progressing Note: Evaluation of progress towards goal: constant burning pain in bilateral legs due to wounds Problem: Infection Goal: Absence of infection during hospitalization Description: Interventions: 1. Assess and monitor for signs and symptoms of infection 2. Monitor lab/diagnostic results 3. Monitor all insertion sites i.e., indwelling lines, tubes and drains 4. Monitor endotracheal (as able) and nasal secretions for changes in amount and color 5. Administer medications as ordered 6. Instruct and encourage patient and family to use good hand hygiene technique 7. Identify and instruct patient/patient business services sales representative in use of appropriate isolation precautions for identified infection/symptoms 8. Provide and discuss with patient/patient business services sales representative on educational MDRO sheet 9. Encourage and monitor nutritional status daily and consult heater helper forge if indicated 10. Implement neutropenic guidelines as needed 11. Review exposure to history of communicable disease and recent travel history on admission 12. Encourage annual influenza vaccine 13. Encourage pneumonia vaccine Outcome: Progressing Note: Evaluation of progress towards goal: IV antibiotics continued Problem: Discharge Planning Goal: Discharge to post-acute care, other facility, or home with appropriate resources Description: Patient's goal is: INTERVENTIONS 1. Conduct assessment to determine patient/family and health care team treatment goals, and need for post-acute services based on payer coverage, community resources, and patient preferences, and barriers to discharge 2. Coordinate with Social work, Care Navigation, and Utilization Review to arrange appropriate level of services according to patient's needs based on patient preference and payer coverage in collaboration with the physician and health care team 3. Address psychosocial, clinical, and financial barriers to discharge as identified in assessment in conjunction with the patient/family and health care team 4. Consult appropriate ancillary services (i.e.. PT/OT/ST, etc) as needed 5. Communicate with and update the patient/family, physician, and health care team regarding progress on the discharge plan 6. Identify discharge learning needs (meds, wound care, etc). 7. Arrange for needed discharge transportation as appropriate Outcome: Progressing Note: Evaluation of progress towards goal: TBD pending SNF placement and patient choices Problem: Glucose Imbalance Goal: Clinical indication of glucose balance is achieved Description: Patient's goal is: INTERVENTIONS 1. Monitor blood glucose levels as ordered 2. Administer medications as ordered 3. Notify physician of ineffective treatment plan Outcome: Progressing Note: Evaluation of progress towards goal: blood sugars well controlled Problem: Pain Goal: Patient goal is pain score less than 4, able to rest, and participant in treatment plan as appropriate Description: INTERVENTIONS: 1. Encourage patient or legal business services sales representative to report early pain and ask for pain medicine when needed 2. Assess pain using appropriate pain scale and include the scale used when documenting 3. Administer analgesics based on type and severity of pain and evaluate response within appropriate time frame 4. Implement non-pharmacological measures as appropriate and evaluate response 5. Consider cultural and social influences on pain and pain management 6. Notify LIP if interventions ineffective or patient reports new pain 7. Monitor vital signs including pulse ox, end-tidal CO2 based on pain intervention 8. Reassess pain per policy 9. Teach patient or legal business services sales representative interventions for comforting Outcome: Progressing Note: Evaluation of progress towards goal: Patient given prn pain medications as needed, will monitor. Problem: Safety Goal: Patient will be injury free during hospitalization Description: INTERVENTIONS: 1. Assess patient's risk for falls and implement fall prevention plan of care per policy 2. Provide and maintain a safe environment 3. Proper use of double Identifiers 4. Medication administration using the 5 rights 5. Hand hygiene 6. Specimens are labeled at the bedside 7. Instruct patient/ patient business services sales representative about use of safety devices 8. Include patient/ patient business services sales representative in decisions related to safety Outcome: Progressing Note: Evaluation of progress towards goal: patient safety maintained, call light in reach, will monitor. Problem: Infection Goal: Absence of infection during hospitalization Description: Interventions: 1. Assess and monitor for signs and symptoms of infection 2. Monitor lab/diagnostic results 3. Monitor all insertion sites i.e., indwelling lines, tubes and drains 4. Monitor endotracheal (as able) and nasal secretions for changes in amount and color 5. Administer medications as ordered 6. Instruct and encourage patient and family to use good hand hygiene technique 7. Identify and instruct patient/patient business services sales representative in use of appropriate isolation precautions for identified infection/symptoms 8. Provide and discuss with patient/patient business services sales representative on educational MDRO sheet 9. Encourage and monitor nutritional status daily and consult heater helper forge if indicated 10. Implement neutropenic guidelines as needed 11. Review exposure to history of communicable disease and recent travel history on admission 12. Encourage annual influenza vaccine 13. Encourage pneumonia vaccine Outcome: Progressing Note: Evaluation of progress towards goal: IV antibiotics Problem: Knowledge Deficit Goal: Patient/patient business services sales representative demonstrates understanding of disease process, treatment plan, medications, and discharge instructions Description: INTERVENTIONS 1. Complete learning assessment and assess knowledge base 2. Provide teaching at level of understanding 3. Provide teaching via preferred learning method(s) Outcome: Progressing Note: Evaluation of progress towards goal: poc discussed with patient, will monitor. Images from the original note were not included. [facility] [place] [facility] Operative Note DATE OF PROCEDURE: 12/27/23 PATIENT NAME: Hipolito Daniels SURGEON: Surgeon(s) and Role: * Hardeep Kiran MD - Primary ASSISTANTS: Dr. Seun Joshi MD STAFF: Biology Specimen Technician Primary: Tamara Calderon RN Scrub Person: ST Shyam Supervisor Sound Technician Resident: Seun Joshi MD PRE-OP DIAGNOSIS: Bilateral lower extremity venous stasis ulcer, cellulitis POST-OP DIAGNOSIS: Bilateral lower extremity venous stasis ulcer, retained hematoma PROCEDURE: Procedure(s): EXCISIONAL DEBRIDEMENT LOWER LEGS (Bilateral) - Wound Class: Dirty or Infected ANESTHESIA: General EBL: 30cc FLUIDS: 600 ml crystalloid COMPLICATIONS: None. CONDITION: stable WOUND CLASS: IV ADDITIONS (Drains, Specimens, Implants): Drains: * No LDAs found * Specimens: * No specimens in log * Implants: Nothing was implanted during the procedure HISTORY: The patient is a 58 y.o. male with history of bilateral venous stasis wounds and concerns for cellulitis. Management options were discussed and patient elected to pursue excisional debridement of the bilateral lower extremities. CONSENT: Planned procedure was explained in detail including discussion of all associated risks/benefits. All questions/concerns were addressed and informed consent was obtained, witnessed by nurse, and placed on the pt's chart. On date of actual procedure consent form was reviewed with patient. Any/all questions/concerns were addressed and the patient elected to proceed with bilateral lower extremity debridement as scheduled. PROCEDURE: The patient was brought back to the operative suite and placed in the supine position. A time out was completed confirming the proper patient, position, and procedure to be performed. General anesthesia was induced and the patient was prepped and draped in the standard sterile fashion. The bilateral lower extremities were prepped into the sterile field. Patient was on standing antibiotics which were continued as scheduled. Both the right and lower extremity were vigorously scrubbed with hibiclens for superficial debridement of the venous stasis ulcers. Our attention was turned to the posterior calves where there was a waxy eschar. This was unroofed. There appeared to be retained hematoma with devitalized tissue beneath. The skin, subcutaneous tissue and fascia were debrided and a circumferential excisional debridement was also performed. The wound bed of the R calf measured 12 cm x 6cm x1.8cm. while the L posterior calf wound bed measured 11cm x 8 cm x 1.5 cm. Finally, there was a small satellite eschar around the lateral ankle of the LLE which required excisional debridement as well. This wound measured 3cm x 2 cm x 1cm. Hemostasis was ensured with Bovie electrocautery. The legs were wiped down and wound care was performed with dakins soaked gauze, dry gauze, xerofoam and kerlix wrapped around the lower extremity. The dressings were secured and reenforced with 4 and 6 in sarkis. Patient tolerated this well. All sponge and instrument counts were correct at the end of the procedure. The patient tolerated the procedure well, was awakened from anesthesia, and was transported to PACU in stable condition. Dr. Kiran was present and scrubbed for the entire procedure MD DENNIS General Surgery Resident, [facility] General Surgery Associated attestation - Hardeep Kiran MD - 12/28/2023 10:46 AM EST I saw the patient prior to the procedure. I was present throughout the procedure and the critical and noncritical portions. I supervised the plan of care. Problem: Pain Goal: Patient goal is pain score less than 4, able to rest, and participant in treatment plan as appropriate Description: INTERVENTIONS: 1. Encourage patient or legal business services sales representative to report early pain and ask for pain medicine when needed 2. Assess pain using appropriate pain scale and include the scale used when documenting 3. Administer analgesics based on type and severity of pain and evaluate response within appropriate time frame 4. Implement non-pharmacological measures as appropriate and evaluate response 5. Consider cultural and social influences on pain and pain management 6. Notify LIP if interventions ineffective or patient reports new pain 7. Monitor vital signs including pulse ox, end-tidal CO2 based on pain intervention 8. Reassess pain per policy 9. Teach patient or legal business services sales representative interventions for comforting Outcome: Progressing Note: Evaluation of progress towards goal: pt says pain is controled with pain meds Problem: Safety Goal: Patient will be injury free during hospitalization Description: INTERVENTIONS: 1. Assess patient's risk for falls and implement fall prevention plan of care per policy 2. Provide and maintain a safe environment 3. Proper use of double Identifiers 4. Medication administration using the 5 rights 5. Hand hygiene 6. Specimens are labeled at the bedside 7. Instruct patient/ patient business services sales representative about use of safety devices 8. Include patient/ patient business services sales representative in decisions related to safety Outcome: Progressing Note: Evaluation of progress towards goal: pt free from falls this shift Problem: Infection Goal: Absence of infection during hospitalization Description: Interventions: 1. Assess and monitor for signs and symptoms of infection 2. Monitor lab/diagnostic results 3. Monitor all insertion sites i.e., indwelling lines, tubes and drains 4. Monitor endotracheal (as able) and nasal secretions for changes in amount and color 5. Administer medications as ordered 6. Instruct and encourage patient and family to use good hand hygiene technique 7. Identify and instruct patient/patient business services sales representative in use of appropriate isolation precautions for identified infection/symptoms 8. Provide and discuss with patient/patient business services sales representative on educational MDRO sheet 9. Encourage and monitor nutritional status daily and consult heater helper forge if indicated 10. Implement neutropenic guidelines as needed 11. Review exposure to history of communicable disease and recent travel history on admission 12. Encourage annual influenza vaccine 13. Encourage pneumonia vaccine Outcome: Progressing Note: Evaluation of progress towards goal: pt with infected legs-cont iv antibiotics-getting debridement today Problem: Knowledge Deficit Goal: Patient/patient business services sales representative demonstrates understanding of disease process, treatment plan, medications, and discharge instructions Description: INTERVENTIONS 1. Complete learning assessment and assess knowledge base 2. Provide teaching at level of understanding 3. Provide teaching via preferred learning method(s) Outcome: Progressing Note: Evaluation of progress towards goal: pt updated on poc Problem: Discharge Planning Goal: Discharge to post-acute care, other facility, or home with appropriate resources Description: Patient's goal is: INTERVENTIONS 1. Conduct assessment to determine patient/family and health care team treatment goals, and need for post-acute services based on payer coverage, community resources, and patient preferences, and barriers to discharge 2. Coordinate with Social work, Care Navigation, and Utilization Review to arrange appropriate level of services according to patient's needs based on patient preference and payer coverage in collaboration with the physician and health care team 3. Address psychosocial, clinical, and financial barriers to discharge as identified in assessment in conjunction with the patient/family and health care team 4. Consult appropriate ancillary services (i.e.. PT/OT/ST, etc) as needed 5. Communicate with and update the patient/family, physician, and health care team regarding progress on the discharge plan 6. Identify discharge learning needs (meds, wound care, etc). 7. Arrange for needed discharge transportation as appropriate Outcome: Progressing Note: Evaluation of progress towards goal: pt will go to snf at [facility] Problem: Pain Goal: Patient goal is pain score less than 4, able to rest, and participant in treatment plan as appropriate Description: INTERVENTIONS: 1. Encourage patient or legal business services sales representative to report early pain and ask for pain medicine when needed 2. Assess pain using appropriate pain scale and include the scale used when documenting 3. Administer analgesics based on type and severity of pain and evaluate response within appropriate time frame 4. Implement non-pharmacological measures as appropriate and evaluate response 5. Consider cultural and social influences on pain and pain management 6. Notify LIP if interventions ineffective or patient reports new pain 7. Monitor vital signs including pulse ox, end-tidal CO2 based on pain intervention 8. Reassess pain per policy 9. Teach patient or legal business services sales representative interventions for comforting Outcome: Progressing Note: Evaluation of progress towards goal: Pain well controlled at this time. PRN meds available. Problem: Safety Goal: Patient will be injury free during hospitalization Description: INTERVENTIONS: 1. Assess patient's risk for falls and implement fall prevention plan of care per policy 2. Provide and maintain a safe environment 3. Proper use of double Identifiers 4. Medication administration using the 5 rights 5. Hand hygiene 6. Specimens are labeled at the bedside 7. Instruct patient/ patient business services sales representative about use of safety devices 8. Include patient/ patient business services sales representative in decisions related to safety Outcome: Progressing Note: Evaluation of progress towards goal: Patient safety maintained, call light within reach, hourly rounding. Problem: Infection Goal: Absence of infection during hospitalization Description: Interventions: 1. Assess and monitor for signs and symptoms of infection 2. Monitor lab/diagnostic results 3. Monitor all insertion sites i.e., indwelling lines, tubes and drains 4. Monitor endotracheal (as able) and nasal secretions for changes in amount and color 5. Administer medications as ordered 6. Instruct and encourage patient and family to use good hand hygiene technique 7. Identify and instruct patient/patient business services sales representative in use of appropriate isolation precautions for identified infection/symptoms 8. Provide and discuss with patient/patient business services sales representative on educational MDRO sheet 9. Encourage and monitor nutritional status daily and consult heater helper forge if indicated 10. Implement neutropenic guidelines as needed 11. Review exposure to history of communicable disease and recent travel history on admission 12. Encourage annual influenza vaccine 13. Encourage pneumonia vaccine Outcome: Progressing Note: Evaluation of progress towards goal: No s/s of infection at this time, VSS, cont to monitor lab and vital signs Problem: Knowledge Deficit Goal: Patient/patient business services sales representative demonstrates understanding of disease process, treatment plan, medications, and discharge instructions Description: INTERVENTIONS 1. Complete learning assessment and assess knowledge base 2. Provide teaching at level of understanding 3. Provide teaching via preferred learning method(s) Outcome: Progressing Note: Evaluation of progress towards goal: Plan of care discussed with patient. Patient verbalizes no questions or concerns at this time. Problem: Discharge Planning Goal: Discharge to post-acute care, other facility, or home with appropriate resources Description: Patient's goal is: INTERVENTIONS 1. Conduct assessment to determine patient/family and health care team treatment goals, and need for post-acute services based on payer coverage, community resources, and patient preferences, and barriers to discharge 2. Coordinate with Social work, Care Navigation, and Utilization Review to arrange appropriate level of services according to patient's needs based on patient preference and payer coverage in collaboration with the physician and health care team 3. Address psychosocial, clinical, and financial barriers to discharge as identified in assessment in conjunction with the patient/family and health care team 4. Consult appropriate ancillary services (i.e.. PT/OT/ST, etc) as needed 5. Communicate with and update the patient/family, physician, and health care team regarding progress on the discharge plan 6. Identify discharge learning needs (meds, wound care, etc). 7. Arrange for needed discharge transportation as appropriate Outcome: Progressing Note: Evaluation of progress towards goal: will continue to assess patients treatment goals and barriers to discharge Problem: Glucose Imbalance Goal: Clinical indication of glucose balance is achieved Description: Patient's goal is: INTERVENTIONS 1. Monitor blood glucose levels as ordered 2. Administer medications as ordered 3. Notify physician of ineffective treatment plan Outcome: Progressing Note: Evaluation of progress towards goal: continue to monitor blood glucose levels and address as needed Goal: Patient's discharge needs are met Description: Patient's goal is: INTERVENTIONS 1. Assess patient for self-management skills 2. Encourage participation in diabetes management 3. Identify potential discharge barriers on admission and throughout hospital stay 4. Involve patient/S.O. in discharge planning process 5. Communicate referral to natural resources extension educator as appropriate 6. Communicate referral to heater helper forge as appropriate 7. Collaborate with case management/social work faculty member for discharge needs Outcome: Progressing Note: Evaluation of progress towards goal: will continue to assess patients treatment goals and barriers to discharge Problem: Potential for Compromised Skin Integrity Goal: Skin integrity is maintained or improved Description: Patient's goal is: INTERVENTIONS 1. Perform initial skin assessment on admission and as needed 2. Turn patient every 2 hours and PRN 3. Relieve pressure to bony prominences 4. Avoid shearing 5. Keep skin clean and dry 6. Alternate a full bath with partial baths for elderly 7. Encourage use of lotion/moisturizer on skin 8. Monitor patient's hygiene practices 9. Float heels 10. Collaborate with interdisciplinary team and initiate plans and interventions as needed Outcome: Progressing Note: Evaluation of progress towards goal: No new skin breakdown noted this shift. Goal: Patient's nutritional intake is adequate Description: Patient's goal is: INTERVENTIONS 1. Assess and monitor food intake and supplements, patient food preferences, nausea, vomiting, labs, oral cavity (gums, teeth, tongue, mucosa), proper denture fit, and cultural beliefs 2. Monitor for signs of hypoglycemia and hyperglycemia 3. Collaborate with interdisciplinary team and initiate plan and interventions as ordered 4. Monitor patient's weight 5. Assist patient with meals/food selection 6. Assist patient with eating 7. Allow adequate time for meals 8. Provide pleasant environment during mealtime 9. Increase social contact during mealtimes 10. Plan activities to conserve energy 11. Encourage/perform oral hygiene as appropriate 12. Encourage patient to take dietary supplement as ordered 13. Collaborate with clinical heater helper forge 14. Include patient/ patient's business services sales representative in decisions related to nutrition Outcome: Progressing Note: Evaluation of progress towards goal: Problem: Urinary Incontinence Goal: Perineal skin integrity is maintained or improved Description: INTERVENTIONS 1. Assess genitourinary system, perineal skin, labs (urinalysis), and history of incontinence to include past management, aggravating, and alleviating factors 2. Keep skin clean and dry 3. Apply skin protectant 4. Develop skin care regimen 5. Provide privacy when changing patients incontinence device to maintain their dignity 6. Consider placing an indwelling catheter 7. Collaborate with interdisciplinary team and initiate plans and interventions as needed Outcome: Progressing Note: Evaluation of progress towards goal: No new skin breakdown noted this shift. Problem: Moderate - High Risk Fall Score Description: Sylvester Fall Score of =/> 25 or indicated by [facility] Assessment Goal: Patient should be free from fall Description: Interventions: 1. [place] to environment 2. Hourly rounds addressing the 4 P's (Pain, Positioning, Possessions, Potty) 3. Clear area of hazards (spills, clutter, electrical cords, unnecessary equipment) 4. Place equipment (bed & TV controls, call light, phone, urinal) within reach 5. Encourage patient to wear glasses and hearing aides as appropriate 6. Maintain bed in lowest position 7. Lock wheels on bed/wheelchair 8. Provide adequate lighting, including night light 9. Assess need for additional bedding, food/fluids, pain med's prior to sleep/routinely 10. Provide gripper slippers or personal non-skid footwear 11. Teach patient and patient business services sales representative to maintain environment for safety and engage in all aspects of fall prevention program 12. Remind patient to call for help before getting out of bed 13. Initiate bed/chair/exit alarms supportive devices as appropriate, (chair wedge, no-skid floor mat, raised edge mattress, hip protectors) 14. Locate patient bed assignment for optimal visualization 15. Evaluate and identify Safe Patient Handling Equipment needs 16. Provide supervision when out of bed or chair 17. Utilize gait belt as needed to assist with ambulation 18. Place adaptive equipment (cane, walker) within reach 19. Request patient business services sales representative bring adaptive equipment/mobility aids from home or obtain and provide as needed 20. Consult pharmacy regarding effects of med's affecting mobility, cognition, and alternatives 21. Obtain physician order for PT if risk factors associated with mobility are present 22. Obtain physician order for OT as appropriate 23. Utilize diversional activities 24. Educate patient and patient business services sales representative how to maintain a safe environment during visitation times (notify nurse prior to leaving bedside) 25. Consider appropriateness of medical or non-medical research associate 26. Set up voiding schedule as appropriate (every 2 hours) Outcome: Progressing Note: Evaluation of progress towards goal: Patient safety maintained, call light within reach, hourly rounding. Problem: Hemodynamic Status Goal: Maintains optimal cardiac output and hemodynamic stability Description: Patient's goal is: INTERVENTIONS 1. Assess and monitor patient's heart rate, rhythm, respiratory rate, peripheral pulses, capillary refill, color, body temperature, intake and output 2. Monitor labs and diagnostic testing 3. Observe for signs of chest pain (note location, duration, severity, radiation and associated symptoms such as diaphoresis, nausea, indigestion) 4. Monitor for signs and symptoms of heart failure (i.e. shortness of breath, edema of feet/ankles/legs, rapid irregular heart rate, coughing, wheezing, white/pink blood tinged sputum, sudden weight gain, chest pain) 5. Plan activities to conserve energy 6. Monitor for signs and symptoms of bleeding Outcome: Progressing Note: Evaluation of progress towards goal: Problem: Excessive Fluid Volume Goal: Fluid and electrolyte balance are achieved/maintained Description: INTERVENTIONS 1. Monitor vitals signs oxygen saturation, respiratory status to include rate, depth, effort, and lung sounds, ) urine color, labs, edema, jugular venous distention, and mental status 2. Monitor patient's weight 3. Monitor intake and output 4. Elevate head of bed 30 degrees 5. Turn patient 6. Monitor low sodium and fluid restriction diet per physician order 7. Collaborate with interdisciplinary team and initiate plan and interventions as ordered Outcome: Progressing Note: Evaluation of progress towards goal: Problem: Inadequate Gas Exchange Goal: Patient is adequately oxygenated and ventilation is improved Description: Patient's goal is: INTERVENTIONS 1. Monitor vital signs, oxygen saturation, respiratory status to include rate, depth, effort, lung sounds, mental status, cyanosis, and labs (ABGs) 2. Administer oxygen as indicated 3. Position patient to optimize gas exchange 4. Instruct patient to turn, cough, and deep breathe; encourage incentive spirometer if indicated 5. Collaborate with Respiratory Therapy for inhaled medication and therapeutic adjuncts 6. Assess skin when indicated 7. Coordinate care and interventions to conserve energy 8. Educate and offer resources for tobacco cessation, if indicated Outcome: Progressing Note: Evaluation of progress towards goal: Problem: Activity Intolerance/Impaired Mobility Goal: Mobility/activity is maintained at optimum level for patient Description: Patient's goal is: INTERVENTIONS 1. Assess and monitor patient barriers to mobility and need for assistive/adaptive devices 2. Assess patient's emotional response to limitations 3. Collaborate with interdisciplinary teams and initiate plans and interventions as ordered 4. Encourage independent activity per tolerance 5. Maintain proper body alignment 6. Perform active/passive ROM as tolerated/ordered 7. Coordinate activities to conserve energy 8. Reposition patient 9. Ensure adequate rest/sleep time Outcome: Progressing Note: Evaluation of progress towards goal: Problem: Nutrition Goal: Patient's nutritional intake is adequate Description: Patient's goal is: INTERVENTIONS 1. Assess and monitor food intake and supplements, patient food preferences, nausea, vomiting, labs, oral cavity (gums, teeth, tongue, mucosa), proper denture fit, and cultural beliefs 2. Monitor for signs of hypoglycemia and hyperglycemia 3. Collaborate with interdisciplinary team and initiate plan and interventions as ordered 4. Monitor patient's weight 5. Assist patient with meals/food selection 6. Assist patient with eating 7. Allow adequate time for meals 8. Provide pleasant environment during mealtime 9. Increase social contact during mealtimes 10. Plan activities to conserve energy 11. Encourage/perform oral hygiene as appropriate 12. Encourage patient to take dietary supplement as ordered 13. Collaborate with clinical heater helper forge 14. Include patient/ patient's business services sales representative in decisions related to nutrition Outcome: Progressing Note: Evaluation of progress towards goal: Additional Comments: Problem: Pain Goal: Patient goal is pain score less than 4, able to rest, and participant in treatment plan as appropriate Description: INTERVENTIONS: 1. Encourage patient or legal business services sales representative to report early pain and ask for pain medicine when needed 2. Assess pain using appropriate pain scale and include the scale used when documenting 3. Administer analgesics based on type and severity of pain and evaluate response within appropriate time frame 4. Implement non-pharmacological measures as appropriate and evaluate response 5. Consider cultural and social influences on pain and pain management 6. Notify LIP if interventions ineffective or patient reports new pain 7. Monitor vital signs including pulse ox, end-tidal CO2 based on pain intervention 8. Reassess pain per policy 9. Teach patient or legal business services sales representative interventions for comforting Outcome: Progressing Note: Evaluation of progress towards goal:pt says percocet is controling pain Problem: Safety Goal: Patient will be injury free during hospitalization Description: INTERVENTIONS: 1. Assess patient's risk for falls and implement fall prevention plan of care per policy 2. Provide and maintain a safe environment 3. Proper use of double Identifiers 4. Medication administration using the 5 rights 5. Hand hygiene 6. Specimens are labeled at the bedside 7. Instruct patient/ patient business services sales representative about use of safety devices 8. Include patient/ patient business services sales representative in decisions related to safety Outcome: Progressing Note: Evaluation of progress towards goal: pt freee from falls this shift Problem: Infection Goal: Absence of infection during hospitalization Description: Interventions: 1. Assess and monitor for signs and symptoms of infection 2. Monitor lab/diagnostic results 3. Monitor all insertion sites i.e., indwelling lines, tubes and drains 4. Monitor endotracheal (as able) and nasal secretions for changes in amount and color 5. Administer medications as ordered 6. Instruct and encourage patient and family to use good hand hygiene technique 7. Identify and instruct patient/patient business services sales representative in use of appropriate isolation precautions for identified infection/symptoms 8. Provide and discuss with patient/patient business services sales representative on educational MDRO sheet 9. Encourage and monitor nutritional status daily and consult heater helper forge if indicated 10. Implement neutropenic guidelines as needed 11. Review exposure to history of communicable disease and recent travel history on admission 12. Encourage annual influenza vaccine 13. Encourage pneumonia vaccine Outcome: Progressing Note: Evaluation of progress towards goal: pt afebrile-cont iv antibiotics Problem: Knowledge Deficit Goal: Patient/patient business services sales representative demonstrates understanding of disease process, treatment plan, medications, and discharge instructions Description: INTERVENTIONS 1. Complete learning assessment and assess knowledge base 2. Provide teaching at level of understanding 3. Provide teaching via preferred learning method(s) Outcome: Progressing Note: Evaluation of progress towards goal: pt updated on poc Images from the original note were not included. DISCHARGE PLANNING NOTE Discharge Planning: Pt. Admitted on 12/25/2023 with Cellulitis PCP SYDNEY GRIFFITH, DO This CN met with patient, introduced self and explained role. Noted readmission risk assessment completed upon admission per RN. Past Medical History: Diagnosis Date Angina pectoris ([facility] [place] [place]) Arthritis Atrial fibrillation ([facility] [place] [place]) Chronic kidney disease kidney stones COPD (chronic obstructive pulmonary disease) ([facility] [place] [place]) Coronary artery disease Diabetes mellitus type 2, controlled ([facility] [place] [place]) Hyperlipidemia Hypertension Migraines Myocardial infarction ([facility] [place] [place]) x2 Obesity Pneumonia Shortness of breath Visual impairment glasses Patent lives alone in a one story home with one step to enter the home. PCP & pharmacy verified. Denies use of illicit drugs or alcohol, Smokes 1 pack of cigarettes per day. No difficulty affording food or medications. All utilities are on and working at home. Discussed discharge plans with patient. Pt legs are very painful to the touch. Discussed need for possible SNF placement for wound care once he is ready to discharge, as he lives alone and there is no one to assist at home with the wound care. SNF briefly discussed & list provided. Patient to review & will discuss more in depth discharge planning tomorrow. Services Requested: Services Requested Discharge Disposition: Non [facility] SNF Does the patient need discharge transportation arranged?: Yes Transportation Arranged: Ambulance Patient choice offered: Yes List Provided: Yes [facility] List Provided: [facility] Visiting Physician/Provider: Sydney Nolan DO Initial DC Assessment Completed: Yes Patient Goals: Patient/Caregiver Goals Patient/Caregiver Goals: Correction Care Skilled Nuring Care: Skilled Care (Short Term) Goals: Goals Patient Stated Discharge to SNF (pt-stated) Evaluation of progress towards goal: Discharge to SNF. List given. Awaiting choices, acceptance & precert. Problem: Pain Goal: Patient goal is pain score less than 4, able to rest, and participant in treatment plan as appropriate Description: INTERVENTIONS: 1. Encourage patient or legal business services sales representative to report early pain and ask for pain medicine when needed 2. Assess pain using appropriate pain scale and include the scale used when documenting 3. Administer analgesics based on type and severity of pain and evaluate response within appropriate time frame 4. Implement non-pharmacological measures as appropriate and evaluate response 5. Consider cultural and social influences on pain and pain management 6. Notify LIP if interventions ineffective or patient reports new pain 7. Monitor vital signs including pulse ox, end-tidal CO2 based on pain intervention 8. Reassess pain per policy 9. Teach patient or legal business services sales representative interventions for comforting Outcome: Progressing Note: Evaluation of progress towards goal: Pain managed with PRN medications Problem: Safety Goal: Patient will be injury free during hospitalization Description: INTERVENTIONS: 1. Assess patient's risk for falls and implement fall prevention plan of care per policy 2. Provide and maintain a safe environment 3. Proper use of double Identifiers 4. Medication administration using the 5 rights 5. Hand hygiene 6. Specimens are labeled at the bedside 7. Instruct patient/ patient business services sales representative about use of safety devices 8. Include patient/ patient business services sales representative in decisions related to safety Outcome: Progressing Note: Evaluation of progress towards goal: Safety maintained. Problem: Infection Goal: Absence of infection during hospitalization Description: Interventions: 1. Assess and monitor for signs and symptoms of infection 2. Monitor lab/diagnostic results 3. Monitor all insertion sites i.e., indwelling lines, tubes and drains 4. Monitor endotracheal (as able) and nasal secretions for changes in amount and color 5. Administer medications as ordered 6. Instruct and encourage patient and family to use good hand hygiene technique 7. Identify and instruct patient/patient business services sales representative in use of appropriate isolation precautions for identified infection/symptoms 8. Provide and discuss with patient/patient business services sales representative on educational MDRO sheet 9. Encourage and monitor nutritional status daily and consult heater helper forge if indicated 10. Implement neutropenic guidelines as needed 11. Review exposure to history of communicable disease and recent travel history on admission 12. Encourage annual influenza vaccine 13. Encourage pneumonia vaccine Outcome: Progressing Note: Evaluation of progress towards goal: Monitoring labs and vitals Problem: Knowledge Deficit Goal: Patient/patient business services sales representative demonstrates understanding of disease process, treatment plan, medications, and discharge instructions Description: INTERVENTIONS 1. Complete learning assessment and assess knowledge base 2. Provide teaching at level of understanding 3. Provide teaching via preferred learning method(s) Outcome: Progressing Note: Evaluation of progress towards goal: POC reviewed with patient. Questions addressed. Verbalizes understanding. Problem: Discharge Planning Goal: Discharge to post-acute care, other facility, or home with appropriate resources Description: Patient's goal is: TBD INTERVENTIONS 1. Conduct assessment to determine patient/family and health care team treatment goals, and need for post-acute services based on payer coverage, community resources, and patient preferences, and barriers to discharge 2. Coordinate with Social work, Care Navigation, and Utilization Review to arrange appropriate level of services according to patient's needs based on patient preference and payer coverage in collaboration with the physician and health care team 3. Address psychosocial, clinical, and financial barriers to discharge as identified in assessment in conjunction with the patient/family and health care team 4. Consult appropriate ancillary services (i.e.. PT/OT/ST, etc) as needed 5. Communicate with and update the patient/family, physician, and health care team regarding progress on the discharge plan 6. Identify discharge learning needs (meds, wound care, etc). 7. Arrange for needed discharge transportation as appropriate Outcome: Progressing Note: Evaluation of progress towards goal: Discharge planning in progress Problem: Glucose Imbalance Goal: Clinical indication of glucose balance is achieved Description: Patient's goal is:maintain acceptable glucose levels during stay INTERVENTIONS 1. Monitor blood glucose levels as ordered 2. Administer medications as ordered 3. Notify physician of ineffective treatment plan Outcome: Progressing Note: Evaluation of progress towards goal: Monitoring glucose levels and giving insulin if needed Problem: Potential for Compromised Skin Integrity Goal: Skin integrity is maintained or improved Description: Patient's goal is: no new skin breakdown during stay INTERVENTIONS 1. Perform initial skin assessment on admission and as needed 2. Turn patient every 2 hours and PRN 3. Relieve pressure to bony prominences 4. Avoid shearing 5. Keep skin clean and dry 6. Alternate a full bath with partial baths for elderly 7. Encourage use of lotion/moisturizer on skin 8. Monitor patient's hygiene practices 9. Float heels 10. Collaborate with interdisciplinary team and initiate plans and interventions as needed Outcome: Progressing Note: Evaluation of progress towards goal: No changes in skin integrity Problem: Moderate - High Risk Fall Score Description: Sylvester Fall Score of =/> 25 or indicated by [facility] Re[facility] Assessment Goal: Patient should be free from fall Description: Interventions: 1. [place] to environment 2. Hourly rounds addressing the 4 P's (Pain, Positioning, Possessions, Potty) 3. Clear area of hazards (spills, clutter, electrical cords, unnecessary equipment) 4. Place equipment (bed & TV controls, call light, phone, urinal) within reach 5. Encourage patient to wear glasses and hearing aides as appropriate 6. Maintain bed in lowest position 7. Lock wheels on bed/wheelchair 8. Provide adequate lighting, including night light 9. Assess need for additional bedding, food/fluids, pain med's prior to sleep/routinely 10. Provide gripper slippers or personal non-skid footwear 11. Teach patient and patient business services sales representative to maintain environment for safety and engage in all aspects of fall prevention program 12. Remind patient to call for help before getting out of bed 13. Initiate bed/chair/exit alarms supportive devices as appropriate, (chair wedge, no-skid floor mat, raised edge mattress, hip protectors) 14. Locate patient bed assignment for optimal visualization 15. Evaluate and identify Safe Patient Handling Equipment needs 16. Provide supervision when out of bed or chair 17. Utilize gait belt as needed to assist with ambulation 18. Place adaptive equipment (cane, walker) within reach 19. Request patient business services sales representative bring adaptive equipment/mobility aids from home or obtain and provide as needed 20. Consult pharmacy regarding effects of med's affecting mobility, cognition, and alternatives 21. Obtain physician order for PT if risk factors associated with mobility are present 22. Obtain physician order for OT as appropriate 23. Utilize diversional activities 24. Educate patient and patient business services sales representative how to maintain a safe environment during visitation times (notify nurse prior to leaving bedside) 25. Consider appropriateness of medical or non-medical research associate 26. Set up voiding schedule as appropriate (every 2 hours) Outcome: Progressing Note: Evaluation of progress towards goal: Safety maintained. Call light within reach. Bed locked. Side rails up. Area clear of hazards. Images from the original note were not included. [facility] [place] [facility] 58 y.o. male admitted on 12/25 with bilateral venous stasis ulcers. Wound care consulted for management of bilateral LE wounds. Patient evaluated and preliminary wound care orders placed. Patient to be evaluated by wound care team today Hansel Carrasco MD PGY2 documented in this encounter [facility] 01-07-2024 Hospital course Narrative Images from the original note were not included. [facility] MEDIC[facility] MD Nadege Brunner, MD Mat Davis, MD Jemima Lewis, MD Bob Ball, MD Francheska Felipe, MD Roger Loja, MD Delmy Roger, MD Jayda Almendarez, TERMITE CONTROL REPRESENTATIVE Susan Ramírez, TERMITE CONTROL REPRESENTATIVE Sushila Sidhu, TERMITE CONTROL REPRESENTATIVE Meche Quiñonez, TERMITE CONTROL REPRESENTATIVE Nilda De La Rosa, TERMITE CONTROL REPRESENTATIVE Antonina Boo, TERMITE CONTROL REPRESENTATIVE Arely Cadena, TERMITE CONTROL REPRESENTATIVE Jie Alexandre, TERMITE CONTROL REPRESENTATIVE Con Garcia, TERMITE CONTROL REPRESENTATIVE Annalisa Hagan, TERMITE CONTROL REPRESENTATIVE Sushma Monzon, TERMITE CONTROL REPRESENTATIVE Jocelynn Chavis, TERMITE CONTROL REPRESENTATIVE Yanet Cortes, TERMITE CONTROL REPRESENTATIVE Carole Nielson, TERMITE CONTROL REPRESENTATIVE Kayce Callaway, TERMITE CONTROL REPRESENTATIVE Sushma Wong, TERMITE CONTROL REPRESENTATIVE Thalia Maher, TERMITE CONTROL REPRESENTATIVE Bipin Turner, TERMITE CONTROL REPRESENTATIVE Hospital Medicine Discharge Summary Patient: Hipolito Daniels Date of : 1965 Room: B7/ Encounter date: 01/07/24 Hospital Day: 14 DATE OF ADMISSION: 12/25/2023 DATE OF DISCHARGE:01/07/2024 DISCHARGE DIAGNOSES Principal Problem: Cellulitis Active Problems: Chronic atrial fibrillation (CMS-HCC) Diastolic heart failure (CMS-HCC) Essential hypertension Mixed hyperlipidemia 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 male who presented to [facility] ED via EMS with complaint of leg pain on 12/23. Patient reported he had lymphedema that has been progressively worsening over the last month. He had complaints of new sores that have started to pop up on his lower legs and he has noted drainage for approximately last 2 weeks. He denied any general symptoms of fever, chills, chest pain, shortness on breath, nausea/vomiting, diarrhea. Workup in the ED was notable for an INR of 6.2, WBC 13, and slightly elevated LFTs. Patient is on Coumadin for atrial fibrillation. XR of his right lower extremity showed no acute bony abnormalities. XR his left lower extremity showed extensive soft tissue swelling but no subcutaneous gas or bony abnormality. Findings concerning for cellulitis. Patient was admitted for further workup and evaluation he was started on IV antibiotics- initially on vancomycin and cefepime. Patient was not amenable to bedside debridement therefore General surgery was consulted. His Coumadin was held to allow his INR to down trend. Bilateral lower extremity venous duplex is were normal and without evidence of DVT. Bilateral lower extremity arterial duplexes were also normal but with limited visualization for the outflow arteries at the infrapopliteal level. Decision was made to transfer the patient to [facility] for vascular surgery evaluation and Hyperbaric treatment. Patient was subsequently transferred to [facility] the evening of 12/25 for higher level of care. Patient has a past medical history significant for atrial fibrillation on Coumadin, hypertension, hyperlipidemia, type 2 diabetes, and lymphedema. Cellulitis/venous ulcer of bilateral lower extremities/drug rash Vascular surgery, Wound care, Hyperbaric Medicine, and ID consulted during stay WBC WNL 12/23 blood cultures x2 negative 12/23 Superficial wound culture showed many mixed Gram-positive and Gram-negative organisms, >25 WBC; final culture polymicrobial 10/[address] Kiran PRN pain medication & scheduled duloxetine, gabapentin Dressing changes per vascular orders Hyperbaric treatment on hold Per ID no indication for antibiotics at this time; previously completed 5 day course vancomycin and cefepime, 4 days of Unasyn Follow-up with vascular surgery and Wound Care as scheduled Rash Previously believed to be a drug rash and reaction to Unasyn--rash had been improving after Unasyn was discontinued Continue Benadryl and topical steroids Type 2 diabetes Hemoglobin A1c 7.3 Continue insulin sliding scale, glyburide at discharge to maintain tight glycemic control during Wound healing Atrial fibrillation/diastolic heart failure/hypertension/hyperlipide tata/orthostatic hypotension Cardiology consulted during admission Currently in atrial fibrillation Repeat echo LVEF 55-60 present, mild MR, Mobile echogenic density on posterior leaflet of the mitral valve may be mobile calcific/degenerative disease or vegetation Continue Lipitor, Imdur, Lopressor, Coumadin at discharge; INR tomorrow for further Coumadin dosing- patient to follow with [facility] or SNF physician at discharge for further adjustments Low suspicion for endocarditis per Cardiology Increase midodrine to 15 mg TID as orthostatic vitals remain positive and continue to monitor orthostatic vitals every 12 hours Increased peripheral edema- Lasix IVP x1 today, started on Lasix 40 mg p.o. daily at discharge Follow-up with cardiology as previously scheduled Review of Systems Constitutional: Positive for fatigue. Negative for chills and fever. HENT: Negative for ear pain and sore throat. Eyes: Negative for pain and visual disturbance. Respiratory: Negative for cough and shortness of breath. Cardiovascular: Negative for chest pain, palpitations and leg swelling. Gastrointestinal: Negative for abdominal pain and vomiting. Genitourinary: Negative for dysuria and hematuria. Musculoskeletal: Positive for gait problem. Negative for arthralgias and back pain. Skin: Positive for rash and wound. Negative for color change. Neurological: Negative for dizziness, seizures, syncope and light-headedness. All other systems reviewed and are negative. Physical Exam BP 102/66 Pulse 92 Temp 36.9 C (98.4 F) Resp 17 Ht 180.3 cm (5' 10.98 ) Wt 115.7 kg (255 lb 1.2 oz) SpO2 98% BMI 35.59 kg/m Temp: [36.4 C (97.6 F)-36.9 C (98.4 F)] 36.9 C (98.4 F) Pulse: [73-104] 92 Resp: [17-18] 17 BP: (102-118)/(62-84) 102/66 SpO2: [93 %-98 %] 98 % O2 Device: Nasal cannula O2 Flow Rate (L/min): [2 L/min] 2 L/min No intake or output data in the 24 hours ending 01/07/24 1585 Constitutional: General: He is not in acute distress. Appearance: He is well-developed. Cardiovascular: Rate and Rhythm: Normal rate. Rhythm irregular. Heart sounds: Normal heart sounds. No murmur heard. Pulmonary: Effort: Pulmonary effort is normal. Breath sounds: Normal breath sounds. No wheezing. Abdominal: General: Bowel sounds are normal. There is distension. Palpations: Abdomen is soft. There is no mass. Tenderness: There is no abdominal tenderness. Musculoskeletal: General: Normal range of motion. Cervical back: Normal range of motion. Right lower le+ Edema present. Left lower le+ Edema present. Skin: General: Skin is warm and dry. Findings: Erythema, rash and wound present. Comments: BLL wrapped- clean dry and intact Neurological: Mental Status: He is alert. Cranial Nerves: No cranial nerve deficit. Coordination: Coordination normal. Psychiatric: Behavior: Behavior normal. Labs Recent Results (from the past 48 hour(s)) Bedside Glucose *Place/Obtain serum glucose if >500(>600 [facility]) per glucometer. Collection Time: 01/05/24 9:17 PM Result Value Ref Range Bedside glucose 222 (H) 65 - 99 mg/dL Protime & INR Collection Time: 01/06/24 4:10 AM Result Value Ref Range Protime 23.3 (H) 9.8 - 13.2 sec Inr 2.1 (H) 0.8 - 1.1 Comprehensive metabolic panel Collection Time: 01/06/24 4:10 AM Result Value Ref Range Sodium 142 134 - 146 mmol/L Potassium, Bld 4.2 3.5 - 5.0 mmol/L Chloride 102 98 - 109 mmol/L CO2 38 (H) 22 - 32 mmol/L Anion gap 2 (L) 5 - 15 mmol/L BUN 22 5 - 23 mg/dL Creatinine 0.71 0.60 - 1.30 mg/dL Glucose 91 65 - 99 mg/dL Calcium 8.1 (L) 8.5 - 10.5 mg/dL Total Protein 4.9 (L) 6.0 - 8.0 g/dL Albumin 2.1 (L) 3.2 - 5.3 g/dL Alkaline Phosphatase 288 (H) 39 - 130 U/L AST 46 (H) 0 - 41 U/L ALT 61 (H) 0 - 40 U/L Total bilirubin 0.8 0.3 - 1.2 mg/dL eGFR (CKD-EPI)non-race dependent >90 >59 ml/min/1.73sq.m Magnesium Collection Time: 01/06/24 4:10 AM Result Value Ref Range Magnesium 1.8 1.8 - 2.6 mg/dL CBC auto differential Collection Time: 01/06/24 4:10 AM Result Value Ref Range White Blood Cells 6.3 4.0 - 11.0 X10E9/L RBC count 3.41 (L) 4.10 - 5.70 X10E12/L Hemoglobin 10.7 (L) 13.0 - 17.0 g/dL Hematocrit 31.8 (L) 39 - 49 % MCV 93 80 - 100 fL MCH 31.2 27 - 34 pg MCHC 33.5 32 - 36 g/dL RDW 16.3 (H) 11.5 - 15.0 % Platelets 249 150 - 450 X10E9/L MPV 7.9 7 - 12 fL % neutrophils 65.9 % % lymphocytes 12.3 % % monocytes 14.9 % % eosinophils 6.3 % % Basophils 0.6 % Neutrophils Absolute (A) 4.1 1.5 - 6.6 X10E9/L Lymphocytes Absolute 0.8 (L) 1.0 - 3.5 X10E9/L Monocytes Absolute 0.9 0 - 0.9 X10E9/L Eosinophils Absolute 0.4 0.0 - 0.4 X10E9/L Basophils Absolute 0.0 0.0 - 0.2 X10E9/L Bedside Glucose *Place/Obtain serum glucose if >500(>600 [facility]) per glucometer. Collection Time: 01/06/24 8:00 AM Result Value Ref Range Bedside glucose 80 65 - 99 mg/dL Bedside Glucose *Place/Obtain serum glucose if >500(>600 [facility]) per glucometer. Collection Time: 01/06/24 1:59 PM Result Value Ref Range Bedside glucose 88 65 - 99 mg/dL Bedside Glucose *Place/Obtain serum glucose if >500(>600 [facility]) per glucometer. Collection Time: 01/06/24 6:28 PM Result Value Ref Range Bedside glucose 178 (H) 65 - 99 mg/dL Bedside Glucose *Place/Obtain serum glucose if >500(>600 [facility]) per glucometer. Collection Time: 01/06/24 8:46 PM Result Value Ref Range Bedside glucose 126 (H) 65 - 99 mg/dL Protime & INR Collection Time: 01/07/24 5:20 AM Result Value Ref Range Protime 20.4 (H) 9.8 - 13.2 sec Inr 1.8 (H) 0.8 - 1.1 Comprehensive metabolic panel Collection Time: 01/07/24 5:20 AM Result Value Ref Range Sodium 144 134 - 146 mmol/L Potassium, Bld 4.3 3.5 - 5.0 mmol/L Chloride 100 98 - 109 mmol/L CO2 38 (H) 22 - 32 mmol/L Anion gap 6 5 - 15 mmol/L BUN 22 5 - 23 mg/dL Creatinine 0.80 0.60 - 1.30 mg/dL Glucose 77 65 - 99 mg/dL Calcium 8.2 (L) 8.5 - 10.5 mg/dL Total Protein 5.4 (L) 6.0 - 8.0 g/dL Albumin 2.1 (L) 3.2 - 5.3 g/dL Alkaline Phosphatase 289 (H) 39 - 130 U/L AST 54 (H) 0 - 41 U/L ALT 59 (H) 0 - 40 U/L Total bilirubin 0.9 0.3 - 1.2 mg/dL eGFR (CKD-EPI)non-race dependent >90 >59 ml/min/1.73sq.m Magnesium Collection Time: 01/07/24 5:20 AM Result Value Ref Range Magnesium 1.9 1.8 - 2.6 mg/dL CBC auto differential Collection Time: 01/07/24 5:20 AM Result Value Ref Range White Blood Cells 6.7 4.0 - 11.0 X10E9/L RBC count 3.65 (L) 4.10 - 5.70 X10E12/L Hemoglobin 11.4 (L) 13.0 - 17.0 g/dL Hematocrit 34.7 (L) 39 - 49 % MCV 95 80 - 100 fL MCH 31.3 27 - 34 pg MCHC 33.0 32 - 36 g/dL RDW 16.2 (H) 11.5 - 15.0 % Platelets 286 150 - 450 X10E9/L MPV 8.1 7 - 12 fL % neutrophils 66.8 % % lymphocytes 12.4 % % monocytes 14.2 % % eosinophils 5.9 % % Basophils 0.7 % Neutrophils Absolute (A) 4.5 1.5 - 6.6 X10E9/L Lymphocytes Absolute 0.8 (L) 1.0 - 3.5 X10E9/L Monocytes Absolute 0.9 0 - 0.9 X10E9/L Eosinophils Absolute 0.4 0.0 - 0.4 X10E9/L Basophils Absolute 0.0 0.0 - 0.2 X10E9/L Bedside Glucose *Place/Obtain serum glucose if >500(>600 [facility]) per glucometer. Collection Time: 01/07/24 8:18 AM Result Value Ref Range Bedside glucose 72 65 - 99 mg/dL Radiology X-ray chest 1 view Result Date: 01/04/2024 Narrative: History: SOB Exam/Technique: Single AP view of the chest was obtained Comparison: Chest x-ray 12/23/2023 Findings: Cardiac size stable. There is no focal areas of airspace disease, pleural effusion or pneumothorax. IMPRESSION: Unremarkable chest x-ray Finalized by Silvia Michel MD on 01/04/2024 1:09 PM Echo complete W/O contrast Result Date: 12/27/2023 Narrative: Left Ventricle: Systolic function is normal with an ejection fraction of 55-60%. Aortic Valve: There is no regurgitation or stenosis. Mitral Valve: There is mild regurgitation. There is no significant mitral valve stenosis. Mobile echogenic density on posterior leaflet of the mitral valve may be mobile calcific/degenerative disease or vegetation. further evaluation with EDITH would be helpful if clinically indicated. Vas art duplex lwr bilateral Result Date: 12/25/2023 Narrative: Right: Non-visualization of the posterior tibial, anterior tibial and peroneal arteries due to extensive wounds and bandage material. External iliac through SFA plaque with multiphasic waveforms and diastolic flow reversal or hyperemic flow that varies with heart rate. Left: Non-visualization of the posterior tibial, anterior tibial and peroneal arteries due to extensive wounds and bandage material. External iliac through SFA plaque with multiphasic waveforms and diastolic flow reversal or hyperemic flow that varies with heart rate. General: In-patient, bedside examination. Conclusions: BILATERAL:Normal lower extremity arterial duplex examination.Limited visualization of the lower extremity for the outflow arteries at the infra popliteal level, please see the text Vas venous duplex lwr bilateral Result Date: 12/24/2023 Narrative: Right: Portable lower extremity deep vein thrombosis (DVT) exam performed. Common femoral, femoral, popliteal and deep calf muscle veins are compressible without intraluminal content. Spontaneous, common femoral, femoral and popliteal spectral Doppler signals. Evaluation of superficial veins was not performed. Left: Portable lower extremity deep vein thrombosis (DVT) exam performed. Common femoral, femoral, popliteal and deep calf muscle veins are compressible without intraluminal content. Spontaneous, common femoral, femoral and popliteal spectral Doppler signals. Evaluation of superficial veins was not performed. General: In-patient, bedside examination. Conclusions: BILATERAL: NO EVIDENCE of deep vein thrombosis of the lower extremity as stated above. Evaluation of superficial veins was not performed. X-ray tibia fibula right minimum 2 views Result Date: 12/23/2023 Narrative: History: Large wound/ulcers on right leg. Concern for possible myelitis. Exam/Technique: AP and lateral views of the right tibia and fibula Comparison: None Findings: There is no evidence of lytic bony lesions, cortical destruction, or abnormal periosteal reaction to suggest changes of acute osteomyelitis on plain radiographs. No other focal bony abnormalities in the shafts of these bones. There is prominent soft tissue irregularity posteriorly that appears to correspond to the reported ulcer/wound. No gross abnormalities are depicted in the knee or ankle joints on these large [id number] images. IMPRESSION: No acute bony abnormalities demonstrated. Finalized by Salinas Carlos MD on 12/23/2023 9:49 AM X-ray tibia fibula left minimum 2 views Result Date: 12/23/2023 Narrative: CLINICAL HISTORY: Wound, ulceration Comparison: None Views: 2 view FINDINGS: * No acute fracture, dislocation, erosion or periostitis. * Extensive soft tissue swelling. Soft tissue calcification present. No definite subcutaneous gas. IMPRESSION: * Extensive soft tissue swelling. Findings concerning for cellulitis. Otherwise tibia and fibula are unremarkable. Finalized by Jason Harrison MD on 12/23/2023 9:39 AM X-ray chest 1 view Result Date: 12/23/2023 Narrative: Clinical history: Leg swelling Views: 1 Comparison: 05/22/2018 Findings/Impression: 1. No acute infiltrate. No volume loss nor consolidation. There is no pleural effusion, pneumothorax, nor volume loss. Heart and mediastinal structures are unremarkable. Pulmonary vasculature stable. 2. No significant change Finalized by Jason Harrison MD on 12/23/2023 9:37 AM DISCHARGE INSTRUCTION Disposition: longterm facility Condition: Stable Activity: activity as tolerated Diet: Adult nutrition supplements Adult diet Regular Texture; Consistent Carb 210 grams (1800 kcal) Adult nutrition supplements Adult diet Follow up: SYDNEY GRIFFITH DO within 7-14 days. Vascular surgery/wound care as scheduled Cardiology as previously scheduled Coumadin clinic at discharge OR SNF physician for ongoing management of Coumadin Labs/Imaging/Pathology: PT/INR Discharge Medications: Medication List START taking these medications Instructions Last Dose Given Next Dose Due betamethasone (augmented) 0.05 % cream Commonly known as: DIPROLENE Apply 1 Application topically in the morning and 1 Application before bedtime. diphenhydrAMINE 25 mg capsule Commonly known as: BENADRYL Take 1 capsule (25 mg total) by mouth every 6 (six) hours as needed for itching. DULoxetine 60 mg capsule Commonly known as: CYMBALTA Start taking on: January 08, 2024 Take 1 capsule (60 mg total) by mouth in the morning. gabapentin 100 mg capsule Commonly known as: NEURONTIN Take 2 capsules (200 mg total) by mouth 3 (three) times a day. * insulin lispro 100 unit/mL insulin pen Commonly known as: HumaLOG Inject 2-10 Units under the skin in the morning and 2-10 Units at noon and 2-10 Units in the evening. Inject with meals. * insulin lispro 100 unit/mL insulin pen Commonly known as: HumaLOG Inject 2-8 Units under the skin nightly. magnesium oxide 400 mg tablet Commonly known as: MAGOX Take 1 tablet (400 mg total) by mouth daily as needed (Magnesium under 1.8). metoprolol tartrate 100 mg tablet Commonly known as: LOPRESSOR Take 1 tablet (100 mg total) by mouth in the morning and 1 tablet (100 mg total) before bedtime. midodrine 5 mg tablet Commonly known as: PROAMATINE Take 3 tablets (15 mg total) by mouth 3 (three) times a day. ondansetron ODT 4 mg disintegrating tablet Commonly known as: ZOFRAN ODT Dissolve 1 tablet (4 mg total) on tongue every 6 (six) hours as needed for nausea or vomiting. oxyCODONE 5 mg immediate release tablet Commonly known as: ROXICODONE Take 1 tablet (5 mg total) by mouth every 6 (six) hours as needed for pain for up to 3 days. Max Daily Amount: 20 mg pantoprazole 40 mg EC tablet Commonly known as: PROTONIX Start taking on: January 08, 2024 Take 1 tablet (40 mg total) by mouth every morning before breakfast. sennosides-docusate sodium 8.6-50 mg Commonly known as: SENOKOT-S Take 1 tablet by mouth every 12 (twelve) hours as needed for constipation. * This list has 2 medication(s) that are the same as other medications prescribed for you. Read the directions carefully, and ask your doctor or other care provider to review them with you. CHANGE how you take these medications Instructions Last Dose Given Next Dose Due furosemide 40 mg tablet Commonly known as: LASIX Start taking on: January 08, 2024 What changed: medication strength how much to take when to take this Take 1 tablet (40 mg total) by mouth daily. isosorbide mononitrate 30 mg 24 hr tablet Commonly known as: IMDUR What changed: medication strength how much to take Take 1 tablet (30 mg total) by mouth daily. warfarin 5 mg tablet Commonly known as: COUMADIN What changed: how much to take how to take this when to take this additional instructions Take 5mg 01/08/2024 CONTINUE taking these medications Instructions Last Dose Given Next Dose Due aspirin 81 mg Take 1 tablet (81 mg total) by mouth in the morning. glyBURIDE 2.5 mg tablet Commonly known as: DIABETA Take 1 tablet (2.5 mg total) by mouth daily with breakfast. LIPITOR 80 mg tablet Generic drug: atorvastatin Take 1 tablet (80 mg total) by mouth in the morning. metFORMIN 500 mg tablet Commonly known as: GLUCOPHAGE Take 2 tablets (1,000 mg total) by mouth in the morning and 2 tablets (1,000 mg total) in the evening. Take with meals. STOP taking these medications candesartan 16 mg tablet Commonly known as: ATACAND carvediloL 12.5 mg tablet Commonly known as: COREG clopidogreL 75 mg tablet Commonly known as: PLAVIX hydroCHLOROthiazide 25 mg tablet Commonly known as: HYDRODIURIL insulin glargine 100 unit/mL injection Commonly known as: LANTUS Where to Get Your Medications You can get these medications from any pharmacy Bring a paper prescription for each of these medications oxyCODONE 5 mg immediate release tablet Information about where to get these medications is not yet available Ask your nurse or doctor about these medications betamethasone (augmented) 0.05 % cream diphenhydrAMINE 25 mg capsule DULoxetine 60 mg capsule furosemide 40 mg tablet gabapentin 100 mg capsule insulin lispro 100 unit/mL insulin pen insulin lispro 100 unit/mL insulin pen isosorbide mononitrate 30 mg 24 hr tablet magnesium oxide 400 mg tablet metoprolol tartrate 100 mg tablet midodrine 5 mg tablet ondansetron ODT 4 mg disintegrating tablet pantoprazole 40 mg EC tablet sennosides-docusate sodium 8.6-50 mg warfarin 5 mg tablet The patient has been started on an opiate pain medication for a condition that is expected to last longer than seven days. Alternatives to opiate medication have been considered and discussed with the patient and it has been agreed upon that opiates are needed in this case. This initial prescription for this problem has been written for 3 days. The reasons for opiate pain medication therapy in this case is acute postoperative pain related to surgical debridement of bilateral lower extremity cellulitis/venous ulcers. The risks versus benefits of opiate therapy, and extended opiate therapy have been discussed with the patient and have been deemed acceptable and clinically appropriate. OARRS report has been reviewed. >30 minutes were spent on discharging this patient. PATY Schreiber 01/07/2024 6:54 PM [facility] Hospitalists 7AM-7PM (all facilities): Message rounding [facility] in [place] or page through [facility] [employer]. 7PM-7AM ([facility], [facility]): Page Night K[facility], [phone]. 7PM-7AM ([place], [place], [place], [place] and [facility] Rehab): Page on-call KHAI, . PATY Schreiber 01/07/241906 Physician Attestation I, Mat Davis MD, personally performed a face to face diagnostic evaluation on this patient. I have reviewed the note authored by the advance practice provider including history, review of systems,physical examination,medical decision making and agree with the assessment and plan as written. I have seen and evaluated the patient, I have repeated the noland portions of the physical exam and concur with the KHAI findings. I have reviewed all laboratory findings and imaging reports/films. I agree with the plan as noted. documented in this encounter [facility] 01-07-2024 History of Present illness Narrative Pharmacokinetic Consult - Follow Up Warfarin Dosing Hipolito Daniels is a 58 y.o. male for whom pharmacy has been consulted for warfarin dosing and monitoring. Subjective Indication for treatment: Anticoag Therapy Indication: Cardiac dysrhythmia Goal INR: Target INR: 2 - 3 Current inpatient warfarin regimen: 5 mg daily Current Hematologic Labs Results from last 7 days Lab Units 01/07/24 0520 01/06/24 0410 01/05/24 0512 01/04/24 0433 01/03/24 0505 01/02/24 0444 01/01/24 0442 INR 1.8* 2.1* 2.1* 2.4* 2.7* 2.8* 2.5* Warfarin Administrations (last 168 hours) Date/Time Action Medication Dose 01/06/24 1546 Given warfarin (COUMADIN) tablet 5 mg 5 mg 01/05/24 1706 Given warfarin (COUMADIN) tablet 5 mg 5 mg 01/04/24 1512 Given warfarin (COUMADIN) tablet 3 mg 3 mg 01/03/24 1658 Given warfarin (COUMADIN) tablet 3 mg 3 mg 01/02/24 1711 Given warfarin (COUMADIN) tablet 3 mg 3 mg 01/01/24 1807 Given warfarin (COUMADIN) tablet 5 mg 5 mg 12/31/23 1808 Given warfarin (COUMADIN) tablet 5 mg 5 mg Assessment INR currently: subtherapeutic Drug-drug interactions: duloxetine Drug-disease state interactions: DM2, obesity, CHF, low albumin Plan RX Anticoag Warfarin IP dose plan: Continue current warfarin regimen of 5 mg daily. Pharmacist will continue to follow patient's clinical progress daily. Geetha Rodriguez RPH Ext [phone] Images from the original note were not included. [facility] Wound Care Service Line - Progress Note Date of Admission: 12/25/2023 10:08 PM Patient: Hipolito Daniels a 58 y.o. male Subjective: Following for bilateral lower leg wounds. Current wound care regimen was switched to xeroform to the wounds, covered with alginate and foam to the posterior leg wounds, and ABD dressings to the anterior leg wounds, with holding of HBO due to dressing choices. Vitals: Vitals: 01/06/24 1104 BP: 93/66 Pulse: 97 Resp: 18 Temp: 36.6 C (97.9 F) SpO2: 93% I/O last 3 completed shifts: In: 400 [P.O.:400] Out: - No intake/output data recorded. Physical Exam Constitutional: General: He is not in acute distress. HENT: Head: Normocephalic and atraumatic. Cardiovascular: Rate and Rhythm: Normal rate. Pulmonary: Effort: Pulmonary effort is normal. No respiratory distress. Abdominal: Palpations: Abdomen is soft. Musculoskeletal: General: Tenderness present. Right lower leg: Edema present. Left lower leg: Edema present. Skin: General: Skin is warm and dry. Neurological: Mental Status: He is alert and oriented to person, place, and time. Psychiatric: Behavior: Behavior normal. Wound Assessment: Location: left, right, and lower legs Type of Wound/Etiology/Severity: venous wounds, fat-layer exposed, present on admission Undermining/Tunneling: no/no Drainage/Exudate/Odor: moderate serous no odor Wound bed: granulation Wound Edges/Periwound: attached edema Measurable Improvement: stable and improved Studies Reviewed: Labs Reviewed: Results from last 7 days Lab Units 01/06/24 0410 01/05/24 0628 01/04/24 0433 01/03/24 0505 01/02/24 0444 WBC X10E9/L 6.3 7.7 8.6 7.8 7.8 HEMOGLOBIN g/dL 10.7* 11.1* 11.4* 10.7* 10.6* HEMATOCRIT % 31.8* 32.7* 33.9* 31.8* 31.7* MCV fL 93 94 93 94 94 PLATELETS X10E9/L 249 247 236 198 167 Results from last 7 days Lab Units 01/06/24 0800 01/06/24 0410 01/05/24 2117 01/05/24 1628 01/05/24 1128 01/05/24 0828 01/05/24 0512 01/04/24 0730 01/04/24 0433 01/03/24 0705 01/03/24 0505 01/02/24 0719 01/02/24 0444 POTASSIUM mmol/L -- 4.2 -- -- -- -- 4.3 -- 4.1 -- 4.2 -- 4.1 CALCIUM mg/dL -- 8.1* -- -- -- -- 8.1* -- 7.8* -- 7.8* -- 7.8* CO2 mmol/L -- 38* -- -- -- -- 37* -- 35* -- 36* -- 38* BUN mg/dL -- 22 -- -- -- -- 26* -- 25* -- 30* -- 33* CREATININE mg/dL -- 0.71 -- -- -- -- 0.78 -- 0.76 -- 0.90 -- 0.89 BEDSIDE GLUCOSE mg/dL 80 -- 222* 182* 149* < > -- < > -- < > -- < > -- GLUCOSE mg/dL -- 91 -- -- -- -- 117* -- 124* -- 107* -- 107* < > = values in this interval not displayed. Results from last 7 days Lab Units 01/06/2440901/05/2451101/04/2443201/03/2450401/02/24443 INR 2.1* 2.1* 2.4* 2.7* 2.8* PROTIME sec 23.3* 24.1* 27.4* 29.9* 31.9* Results from last 7 days Lab Units 01/06/2440901/05/2451101/04/2443201/03/24 05001/02/244 ALT U/L 61* 72* 77* 76* 81* AST U/L 46* 49* 56* 53* 58* ALK PHOS U/L 288* 315* 306* 262* 260* Pathology/Cytology Results No results found for the last 168 hours. Microbiology Results No results found for the last 168 hours. Medications Reviewed: atorvastatin, 80 mg, oral, Daily betamethasone (augmented), 1 Application, topical, BID DULoxetine, 60 mg, oral, Daily gabapentin, 200 mg, oral, TID glyBURIDE, 2.5 mg, oral, Daily with breakfast insulin lispro, 2-10 Units, subcutaneous, TID with meals insulin lispro, 2-8 Units, subcutaneous, Nightly isosorbide mononitrate, 30 mg, oral, Daily metoprolol tartrate, 100 mg, oral, BID midodrine, 10 mg, oral, TID pantoprazole, 40 mg, oral, QAM AC sodium chloride, 3 mL, intravenous, Q12H LUZ warfarin, 5 mg, oral, Daily sodium chloride 0.9 %, 10 mL/hr, Last Rate: Stopped (12/28/23 1730) Imaging Reviewed: No results found. Vas art duplex lwr bilateral Result Date: 12/25/2023 Right: Non-visualization of the posterior tibial, anterior tibial and peroneal arteries due to extensive wounds and bandage material. External iliac through SFA plaque with multiphasic waveforms and diastolic flow reversal or hyperemic flow that varies with heart rate. Left: Non-visualization of the posterior tibial, anterior tibial and peroneal arteries due to extensive wounds and bandage material. External iliac through SFA plaque with multiphasic waveforms and diastolic flow reversal or hyperemic flow that varies with heart rate. General: In-patient, bedside examination. Conclusions: BILATERAL:Normal lower extremity arterial duplex examination.Limited visualization of the lower extremity for the outflow arteries at the infra popliteal level, please see the text No results found for this or any previous visit from the past 1080 days. No results found for this or any previous visit from the past 1080 days. Assessment/Plan/Education: Principal Problem: Cellulitis Active Problems: Chronic atrial fibrillation ([facility]) Diastolic heart failure ([facility]) Essential hypertension Mixed hyperlipidemia Type 2 diabetes mellitus with obesity ([facility]) Venous ulcer of left lower extremity without varicose veins ([facility]) Venous ulcer of right lower extremity without varicose veins ([facility] Open wound of both lower extremities Lymphedema Wound Plan Dressing:continue current dressing changes Antibiotics: per ID Studies/Testing: as above Medical Management: per primary service Wound care will continue to follow while inpatient. PATY SMITH 01/06/24 [facility] M-F 8a-3p Secure Chat or Page [phone] PATY Smith 01/06/24 1422 Images from the original note were not included. [facility] MEDICINE [facility]ISTS MD Nadege Brunner MD Kaleem Gill, MD Sneha Kommoori, MD Francheska Oliva MD Ravi Pothireddy, MD Delmy Roger, MD Jayda Almendarez, ERICKA Kendallden, TERMITE CONTROL REPRESENTATIVE Sushila Sidhu, TERMITE CONTROL REPRESENTATIVE Mechesally Quiñonez, TERMITE CONTROL REPRESENTATIVE Nilda Rj, TERMITE CONTROL REPRESENTATIVE Antonina Boo, TERMITE CONTROL REPRESENTATIVE Arely Cadena, TERMITE CONTROL REPRESENTATIVE Jie Alexandre, TERMITE CONTROL REPRESENTATIVE Con Garcia, TERMITE CONTROL REPRESENTATIVE Annalisa Hagan, TERMITE CONTROL REPRESENTATIVE Sushma Monzon, TERMITE CONTROL REPRESENTATIVE Jocelynn Chavis, TERMITE CONTROL REPRESENTATIVE Yanet Sophia, TERMITE CONTROL REPRESENTATIVE Carole Nielson, TERMITE CONTROL REPRESENTATIVE Kayce Callaway, TERMITE CONTROL REPRESENTATIVE Sushma Wong, TERMITE CONTROL REPRESENTATIVE Thalia Maher, TERMITE CONTROL REPRESENTATIVE Bipin Turner, TERMITE CONTROL REPRESENTATIVE [facility] Medicine Progress Note Patient: Hipolito Daniels Date of : 1965 Room: [place] [address] PCP: SYDNEY GRIFFITH DO Admission date: 12/25/2023 10:08 PM Encounter date: 01/06/24 Hospital Day: 13 SUBJECTIVE Chief complaints: No chief complaint on file. Interval History: Status: stable. The patient seen and examined at bedside, no acute distress at this time. Orthostatic vitals are again positive, increase midodrine dosing to 15 mg TID. Awaiting authorization for placement. Review of Systems Constitutional: Positive for fatigue. Negative for chills and fever. HENT: Negative for ear pain and sore throat. Eyes: Negative for pain and visual disturbance. Respiratory: Negative for cough and shortness of breath. Cardiovascular: Negative for chest pain, palpitations and leg swelling. Gastrointestinal: Negative for abdominal pain and vomiting. Genitourinary: Negative for dysuria and hematuria. Musculoskeletal: Positive for gait problem. Negative for arthralgias and back pain. Skin: Positive for rash and wound. Negative for color change. Neurological: Negative for dizziness, seizures, syncope and light-headedness. All other systems reviewed and are negative. OBJECTIVE BP (!) 85/57 Pulse 97 Temp 36.7 C (98 F) (Oral) Resp 18 Ht 180.3 cm (5' 10.98 ) Wt 115.7 kg (255 lb 1.2 oz) SpO2 97% BMI 35.59 kg/m Temp: [36.6 C (97.9 F)-36.7 C (98 F)] 36.7 C (98 F) Pulse: [96-99] 97 Resp: [17-22] 18 BP: (85-120)/(57-90) 85/57 SpO2: [93 %-97 %] 97 % O2 Device: None (Room air) Intake/Output Summary (Last 24 hours) at 01/06/2024 4918 Last data filed at 01/05/20241999 Gross per 24 hour Intake 200 ml Output -- Net 200 ml Physical Exam Constitutional: General: He is not in acute distress. Appearance: He is well-developed. HENT: Head: Normocephalic. Right Ear: External ear normal. Left Ear: External ear normal. Nose: Nose normal. Mouth/Throat: Mouth: Mucous membranes are dry. Eyes: Conjunctiva/sclera: Conjunctivae normal. Pupils: Pupils are equal, round, and reactive to light. Cardiovascular: Rate and Rhythm: Normal rate. Rhythm irregular. Heart sounds: Normal heart sounds. No murmur heard. Pulmonary: Effort: Pulmonary effort is normal. Breath sounds: Normal breath sounds. No wheezing. Abdominal: General: Bowel sounds are normal. There is distension. Palpations: Abdomen is soft. There is no mass. Tenderness: There is no abdominal tenderness. Musculoskeletal: General: Normal range of motion. Cervical back: Normal range of motion. Right lower le+ Edema present. Left lower le+ Edema present. Lymphadenopathy: Cervical: No cervical adenopathy. Skin: General: Skin is warm and dry. Findings: Erythema, rash and wound present. Comments: BLL wrapped Neurological: Mental Status: He is alert. Cranial Nerves: No cranial nerve deficit. Coordination: Coordination normal. Psychiatric: Behavior: Behavior normal. Medications Scheduled: atorvastatin, 80 mg, oral, Daily betamethasone (augmented), 1 Application, topical, BID DULoxetine, 60 mg, oral, Daily gabapentin, 200 mg, oral, TID glyBURIDE, 2.5 mg, oral, Daily with breakfast insulin lispro, 2-10 Units, subcutaneous, TID with meals insulin lispro, 2-8 Units, subcutaneous, Nightly isosorbide mononitrate, 30 mg, oral, Daily metoprolol tartrate, 100 mg, oral, BID midodrine, 15 mg, oral, TID pantoprazole, 40 mg, oral, QAM AC sodium chloride, 3 mL, intravenous, Q12H LUZ warfarin, 5 mg, oral, Daily Infusions: sodium chloride 0.9 %, 10 mL/hr, Last Rate: Stopped (12/28/23 1730) As Needed: acetaminophen alum-mag hydroxide-simeth dextrose dextrose 50 % in water (D50W) diphenhydrAMINE glucagon (human recombinant) HYDROmorphone magnesium oxide ondansetron ODT oxyCODONE OR oxyCODONE potassium chloride OR potassium chloride sennosides-docusate sodium sodium chloride sodium chloride 0.9 % Allergies: Ciprofloxacin, Keflex [cephalexin], Albuterol, Penicillins, Shellfish derived, Unasyn [ampicillin-sulbactam], and Magnesium sulfate Code Status: Full Code Labs Recent Results (from the past 24 hour(s)) Bedside Glucose *Place/Obtain serum glucose if >500(>600 MRH) per glucometer. Collection Time: 01/05/24 9:17 PM Result Value Ref Range Bedside glucose 222 (H) 65 - 99 mg/dL Protime & INR Collection Time: 01/06/24 4:10 AM Result Value Ref Range Protime 23.3 (H) 9.8 - 13.2 sec Inr 2.1 (H) 0.8 - 1.1 Comprehensive metabolic panel Collection Time: 01/06/24 4:10 AM Result Value Ref Range Sodium 142 134 - 146 mmol/L Potassium, Bld 4.2 3.5 - 5.0 mmol/L Chloride 102 98 - 109 mmol/L CO2 38 (H) 22 - 32 mmol/L Anion gap 2 (L) 5 - 15 mmol/L BUN 22 5 - 23 mg/dL Creatinine 0.71 0.60 - 1.30 mg/dL Glucose 91 65 - 99 mg/dL Calcium 8.1 (L) 8.5 - 10.5 mg/dL Total Protein 4.9 (L) 6.0 - 8.0 g/dL Albumin 2.1 (L) 3.2 - 5.3 g/dL Alkaline Phosphatase 288 (H) 39 - 130 U/L AST 46 (H) 0 - 41 U/L ALT 61 (H) 0 - 40 U/L Total bilirubin 0.8 0.3 - 1.2 mg/dL eGFR (CKD-EPI)non-race dependent >90 >59 ml/min/1.73sq.m Magnesium Collection Time: 01/06/24 4:10 AM Result Value Ref Range Magnesium 1.8 1.8 - 2.6 mg/dL CBC auto differential Collection Time: 01/06/24 4:10 AM Result Value Ref Range White Blood Cells 6.3 4.0 - 11.0 X10E9/L RBC count 3.41 (L) 4.10 - 5.70 X10E12/L Hemoglobin 10.7 (L) 13.0 - 17.0 g/dL Hematocrit 31.8 (L) 39 - 49 % MCV 93 80 - 100 fL MCH 31.2 27 - 34 pg MCHC 33.5 32 - 36 g/dL RDW 16.3 (H) 11.5 - 15.0 % Platelets 249 150 - 450 X10E9/L MPV 7.9 7 - 12 fL % neutrophils 65.9 % % lymphocytes 12.3 % % monocytes 14.9 % % eosinophils 6.3 % % Basophils 0.6 % Neutrophils Absolute (A) 4.1 1.5 - 6.6 X10E9/L Lymphocytes Absolute 0.8 (L) 1.0 - 3.5 X10E9/L Monocytes Absolute 0.9 0 - 0.9 X10E9/L Eosinophils Absolute 0.4 0.0 - 0.4 X10E9/L Basophils Absolute 0.0 0.0 - 0.2 X10E9/L Bedside Glucose *Place/Obtain serum glucose if >500(>600 MRH) per glucometer. Collection Time: 01/06/24 8:00 AM Result Value Ref Range Bedside glucose 80 65 - 99 mg/dL Bedside Glucose *Place/Obtain serum glucose if >500(>600 MRH) per glucometer. Collection Time: 01/06/24 1:59 PM Result Value Ref Range Bedside glucose 88 65 - 99 mg/dL Radiology No results found. HOSPITAL PROBLEM LIST Principal Problem: Cellulitis Active Problems: Chronic atrial fibrillation ([facility]) Diastolic heart failure ([facility]) Essential hypertension Mixed hyperlipidemia Type 2 diabetes mellitus with obesity ([facility]) Venous ulcer of left lower extremity without varicose veins ([facility]) Venous ulcer of right lower extremity without varicose veins ([facility]) Open wound of both lower extremities Lymphedema ASSESSMENT & PLAN Cellulitis/venous ulcer of bilateral lower extremities/drug rash Vascular surgery, Wound care, Hyperbaric Medicine Infectious Disease signed off WBC WNL 12/23 blood cultures x2 negative 12/23 Superficial wound culture showed many mixed Gram-positive and Gram-negative organisms, >25 WBC 10/[address] Kiran PRN pain medication & scheduled duloxetine, gabapentin Dressing changes per vascular orders Hyperbaric treatment on hold Per ID no indication for antibiotics at this time Rash Previously believed to be a drug rash and reaction to Unasyn--rash had been improving after Unasyn was discontinued Continue Benadryl and topical steroids Type 2 diabetes Hemoglobin A1c 7.3 Continue insulin sliding scale, glyburide Atrial fibrillation/diastolic heart failure/hypertension/hyperlipide tata/orthostatic hypotension Cardiology signed off Currently in atrial fibrillation Repeat echo LVEF 55-60 present, mild MR, Mobile echogenic density on posterior leaflet of the mitral valve may be mobile calcific/degenerative disease or vegetation Continue Lipitor, Imdur, Lopressor, Coumadin Low suspicion for endocarditis per Cardiology Increase midodrine to 15 mg TID as orthostatic vitals remain positive and continue to monitor orthostatic vitals every 12 hours DVT Prophylaxis: EPC's and Coumadin DC Planning: Pending Precert PATY LAWRENCE, 01/06/2024 5:39 PM [facility]-7[facility] (all facilities): Message rounding KHAI in [place] or [place] through [employer]. 7PM-7AM ([facility], [facility] Psychiatry and Inpatient Rehab): Page Night KHAI, [phone]. 7PM-7AM ([place], [place], [place], [place] and [facility] Rehab): Page on-call KHAI, . This note was completed using a voice dancing teacher system. Every effort is made to ensure accuracy, however inadvertent errors may occur. PATY Lawrence 01/06/24 9587 Physician Attestation I, Mat Davis MD, personally performed a face to face diagnostic evaluation on this patient. I have reviewed the note authored by the advance practice provider including history, review of systems,physical examination,medical decision making and agree with the assessment and plan as written. I have seen and evaluated the patient, I have repeated the noland portions of the physical exam and concur with the KHAI findings. I have reviewed all laboratory findings and imaging reports/films. I agree with the plan as noted. Pharmacokinetic Consult - Follow Up Warfarin Dosing Hipolito Daniels is a 58 y.o. male for whom pharmacy has been consulted for warfarin dosing and monitoring. Subjective Indication for treatment: Anticoag Therapy Indication: Cardiac dysrhythmia Goal INR: Target INR: 2 - 3 Current inpatient warfarin regimen: 5 mg daily Current Hematologic Labs Results from last 7 days Lab Units 01/06/24 0410 01/05/24 0512 01/04/24 0433 01/03/24 0505 01/02/24 0444 01/01/24 0442 12/31/23 0506 INR 2.1* 2.1* 2.4* 2.7* 2.8* 2.5* 2.2* Warfarin Administrations (last 168 hours) Date/Time Action Medication Dose 01/05/24 1706 Given warfarin (COUMADIN) tablet 5 mg 5 mg 01/04/24 1512 Given warfarin (COUMADIN) tablet 3 mg 3 mg 01/03/24 1658 Given warfarin (COUMADIN) tablet 3 mg 3 mg 01/02/24 1711 Given warfarin (COUMADIN) tablet 3 mg 3 mg 01/01/24 1807 Given warfarin (COUMADIN) tablet 5 mg 5 mg 12/31/23 1808 Given warfarin (COUMADIN) tablet 5 mg 5 mg 12/30/23 1755 Given warfarin (COUMADIN) tablet 5 mg 5 mg Assessment INR currently: therapeutic Drug-drug interactions: duloxetine Drug-disease state interactions: DM2, low albumin Other pertinent information: Patient's home warfarin regimen is 5mg Jose,,Th and 7.5mg all other days. Dose reduced from home regimen due to increasing INR on 01/02 and low albumin Plan RX Anticoag Warfarin IP dose plan: Continue current warfarin regimen of 5 mg daily. Pharmacist will continue to follow patient's clinical progress daily. Geetha Rodriguez RPH Ext [phone] Images from the original note were not included. [facility] MEDICINE [facility] MD Dirk Brunnermood Susie, MD Mat Davis, MD Jemima Lewis, MD Bob Ball, MD Francheska Felipe, MD Roger Loja, MD Delmy Roger, MD Jayda Almendarez, TERMITE CONTROL REPRESENTATIVE Susan Ramírez, TERMITE CONTROL REPRESENTATIVE Sushila Sidhu, TERMITE CONTROL REPRESENTATIVE Meche Quiñonez, TERMITE CONTROL REPRESENTATIVE Nilda De La Rosa, TERMITE CONTROL REPRESENTATIVE Antonina Baumanngonzalez, TERMITE CONTROL REPRESENTATIVE Arely Surinder, TERMITE CONTROL REPRESENTATIVE Jie Alexandre, TERMITE CONTROL REPRESENTATIVE Con Garcia, TERMITE CONTROL REPRESENTATIVE Annalisa Bentley, TERMITE CONTROL REPRESENTATIVE Sushma Na, TERMITE CONTROL REPRESENTATIVE Jocelynn Partha, TERMITE CONTROL REPRESENTATIVE Yanet Sophia, TERMITE CONTROL REPRESENTATIVE genaro Naga, TERMITE CONTROL REPRESENTATIVE Kayce Callaway, TERMITE CONTROL REPRESENTATIVE Sushma Wong, TERMITE CONTROL REPRESENTATIVE Thalia Maher, TERMITE CONTROL REPRESENTATIVE Bipin Turner, [facility] Medicine Progress Note Patient: Hipolito Daniels Date of : 1965 Room: [place] [address] PCP: SYDNEY GRIFFITH DO Admission date: 12/25/2023 10:08 PM Encounter date: 01/05/24 Hospital Day: 12 SUBJECTIVE Chief complaints: No chief complaint on file. Interval History: Status: stable. The patient was seen and evaluated at bedside this morning. He reported that his lightheadedness dizziness has significantly improved today. He did endorse feeling he is having some swelling in his abdomen due to receiving recent IV fluids. He denied having any shortness of breath, palpitations, or chest pain. Patient is noted to have worsening rash on his abdomen and back. Review of Systems Constitutional: Positive for fatigue. Negative for chills and fever. HENT: Negative for ear pain and sore throat. Eyes: Negative for pain and visual disturbance. Respiratory: Negative for cough and shortness of breath. Cardiovascular: Negative for chest pain, palpitations and leg swelling. Gastrointestinal: Positive for abdominal distention. Negative for abdominal pain and vomiting. Genitourinary: Negative for dysuria and hematuria. Musculoskeletal: Positive for gait problem. Negative for arthralgias and back pain. Skin: Positive for rash and wound. Negative for color change. Neurological: Negative for dizziness, seizures, syncope and light-headedness. All other systems reviewed and are negative. OBJECTIVE BP 127/79 Pulse 99 Temp 36.7 C (98 F) Resp 18 Ht 180.3 cm (5' 10.98 ) Wt 115.7 kg (255 lb 1.2 oz) SpO2 98% BMI 35.59 kg/m Temp: [36.2 C (97.2 F)-36.7 C (98.1 F)] 36.7 C (98 F) Pulse: [95-104] 99 Resp: [18] 18 BP: (106-130)/(63-79) 127/79 SpO2: [90 %-98 %] 98 % O2 Device: Nasal cannula O2 Flow Rate (L/min): [0 L/min-2 L/min] 2 L/min Intake/Output Summary (Last 24 hours) at 01/05/2024 0902 Last data filed at 01/04/20241999 Gross per 24 hour Intake 220 ml Output -- Net 220 ml Physical Exam Constitutional: General: He is not in acute distress. Appearance: He is well-developed. HENT: Head: Normocephalic. Right Ear: External ear normal. Left Ear: External ear normal. Nose: Nose normal. Mouth/Throat: Mouth: Mucous membranes are dry. Eyes: Conjunctiva/sclera: Conjunctivae normal. Pupils: Pupils are equal, round, and reactive to light. Cardiovascular: Rate and Rhythm: Normal rate. Rhythm irregular. Heart sounds: Normal heart sounds. No murmur heard. Pulmonary: Effort: Pulmonary effort is normal. Breath sounds: Normal breath sounds. No wheezing. Abdominal: General: Bowel sounds are normal. There is distension. Palpations: Abdomen is soft. There is no mass. Tenderness: There is no abdominal tenderness. Musculoskeletal: General: Normal range of motion. Cervical back: Normal range of motion. Right lower le+ Edema present. Left lower le+ Edema present. Lymphadenopathy: Cervical: No cervical adenopathy. Skin: General: Skin is warm and dry. Findings: Erythema, rash and wound present. Comments: BLL wrapped, noted to have worsening rash on his back and belly Neurological: Mental Status: He is alert. Cranial Nerves: No cranial nerve deficit. Coordination: Coordination normal. Psychiatric: Behavior: Behavior normal. Medications Scheduled: atorvastatin, 80 mg, oral, Daily betamethasone (augmented), 1 Application, topical, BID DULoxetine, 60 mg, oral, Daily fluticasone propionate, 2 spray, each nare, Daily gabapentin, 200 mg, oral, TID glyBURIDE, 2.5 mg, oral, Daily with breakfast insulin lispro, 2-10 Units, subcutaneous, TID with meals insulin lispro, 2-8 Units, subcutaneous, Nightly isosorbide mononitrate, 30 mg, oral, Daily metoprolol tartrate, 100 mg, oral, BID midodrine, 10 mg, oral, TID pantoprazole, 40 mg, oral, QAM AC sodium chloride, 3 mL, intravenous, Q12H LUZ sodium hypochlorite, 1 Application, topical, BID vitamin E (dl, acetate), 400 Units, oral, BID warfarin, 5 mg, oral, Daily Infusions: sodium chloride 0.9 %, 10 mL/hr, Last Rate: Stopped (12/28/23 1730) As Needed: acetaminophen alum-mag hydroxide-simeth dextrose dextrose 50 % in water (D50W) diphenhydrAMINE glucagon (human recombinant) HYDROmorphone magnesium oxide ondansetron ODT oxyCODONE OR oxyCODONE potassium chloride OR potassium chloride sennosides-docusate sodium sodium chloride sodium chloride 0.9 % Allergies: Ciprofloxacin, Keflex [cephalexin], Albuterol, Penicillins, Shellfish derived, Unasyn [ampicillin-sulbactam], and Magnesium sulfate Code Status: Full Code Labs Recent Results (from the past 24 hour(s)) Bedside Glucose *Place/Obtain serum glucose if >500(>600 MRH) per glucometer. Collection Time: 01/04/24 12:11 PM Result Value Ref Range Bedside glucose 201 (H) 65 - 99 mg/dL Bedside Glucose *Place/Obtain serum glucose if >500(>600 MRH) per glucometer. Collection Time: 01/04/24 5:55 PM Result Value Ref Range Bedside glucose 162 (H) 65 - 99 mg/dL Bedside Glucose *Place/Obtain serum glucose if >500(>600 MRH) per glucometer. Collection Time: 01/04/24 10:54 PM Result Value Ref Range Bedside glucose 218 (H) 65 - 99 mg/dL Protime & INR Collection Time: 01/05/24 5:12 AM Result Value Ref Range Protime 24.1 (H) 9.8 - 13.2 sec Inr 2.1 (H) 0.8 - 1.1 Comprehensive metabolic panel Collection Time: 01/05/24 5:12 AM Result Value Ref Range Sodium 144 134 - 146 mmol/L Potassium, Bld 4.3 3.5 - 5.0 mmol/L Chloride 102 98 - 109 mmol/L CO2 37 (H) 22 - 32 mmol/L Anion gap 5 5 - 15 mmol/L BUN 26 (H) 5 - 23 mg/dL Creatinine 0.78 0.60 - 1.30 mg/dL Glucose 117 (H) 65 - 99 mg/dL Calcium 8.1 (L) 8.5 - 10.5 mg/dL Total Protein 5.4 (L) 6.0 - 8.0 g/dL Albumin 2.3 (L) 3.2 - 5.3 g/dL Alkaline Phosphatase 315 (H) 39 - 130 U/L AST 49 (H) 0 - 41 U/L ALT 72 (H) 0 - 40 U/L Total bilirubin 0.8 0.3 - 1.2 mg/dL eGFR (CKD-EPI)non-race dependent >90 >59 ml/min/1.73sq.m Magnesium Collection Time: 01/05/24 5:12 AM Result Value Ref Range Magnesium 1.8 1.8 - 2.6 mg/dL CBC auto differential Collection Time: 01/05/24 6:28 AM Result Value Ref Range White Blood Cells 7.7 4.0 - 11.0 X10E9/L RBC count 3.50 (L) 4.10 - 5.70 X10E12/L Hemoglobin 11.1 (L) 13.0 - 17.0 g/dL Hematocrit 32.7 (L) 39 - 49 % MCV 94 80 - 100 fL MCH 31.7 27 - 34 pg MCHC 33.8 32 - 36 g/dL RDW 16.2 (H) 11.5 - 15.0 % Platelets 247 150 - 450 X10E9/L MPV 8.5 7 - 12 fL % neutrophils 73.5 % % lymphocytes 8.2 % % monocytes 12.2 % % eosinophils 5.2 % % Basophils 0.9 % Neutrophils Absolute (A) 5.6 1.5 - 6.6 X10E9/L Lymphocytes Absolute 0.6 (L) 1.0 - 3.5 X10E9/L Monocytes Absolute 0.9 0 - 0.9 X10E9/L Eosinophils Absolute 0.4 0.0 - 0.4 X10E9/L Basophils Absolute 0.1 0.0 - 0.2 X10E9/L Bedside Glucose *Place/Obtain serum glucose if >500(>600 MRH) per glucometer. Collection Time: 01/05/24 8:28 AM Result Value Ref Range Bedside glucose 104 (H) 65 - 99 mg/dL Radiology X-ray chest 1 view Result Date: 01/04/2024 History: SOB Exam/Technique: Single AP view of the chest was obtained Comparison: Chest x-ray 12/23/2023 Findings: Cardiac size stable. There is no focal areas of airspace disease, pleural effusion or pneumothorax. IMPRESSION: Unremarkable chest x-ray Finalized by Silvia Michel MD on 01/04/2024 1:09 PM HOSPITAL PROBLEM LIST Principal Problem: Cellulitis Active Problems: Chronic atrial fibrillation ([facility]) Diastolic heart failure ([facility]) Essential hypertension Mixed hyperlipidemia Type 2 diabetes mellitus with obesity ([facility]) Venous ulcer of left lower extremity without varicose veins ([facility]) Venous ulcer of right lower extremity without varicose veins ([facility]) Open wound of both lower extremities Lymphedema ASSESSMENT & PLAN Cellulitis/venous ulcer of bilateral lower extremities/drug rash Vascular surgery reconsulted, Wound care and hyperbaric Medicine following Infectious Disease signed off WBC WNL 12/23 blood cultures x2 negative 12/23 Superficial wound culture showed many mixed Gram-positive and Gram-negative organisms, >25 WBC 10/[address] Kiran PRN pain medication & scheduled duloxetine, gabapentin Dressing changes per vascular orders Hyperbaric treatment on hold--to be reevaluated Saturday Unasyn discontinued; no indication for antibiotics Rash Previously believed to be a drug rash and reaction to Unasyn--rash had been improving after Unasyn was discontinued Worsening rash this morning on back and abdomen Continue Benadryl and topical steroids Type 2 diabetes Hemoglobin A1c 7.3 Continue insulin sliding scale Atrial fibrillation/diastolic heart failure/hypertension/hyperlipide tata/orthostatic hypotension Cardiology signed off Currently in atrial fibrillation Repeat echo LVEF 55-60 present, mild MR, Mobile echogenic density on posterior leaflet of the mitral valve may be mobile calcific/degenerative disease or vegetation Continue Lipitor, Imdur, Lopressor, Coumadin Low suspicion for endocarditis per Cardiology Continue to monitor orthostatic vitals every 12 hours DVT/VTE prophylaxis: SCD's and pharmacologic prophylaxis, warfarin, continue home dose. GI prophylaxis: add pantoprazole. PT/OT to evaluate and treat. DC planning: [facility] Jie Alexandre APRN-TERMITE CONTROL REPRESENTATIVE 01/05/2024 9:02 AM [facility] Hospitalists 7AM-7PM (all facilities): Message rounding KHAI in [place] or page through [employer]. 7PM-7AM ([facility], [facility] Psychiatry and Inpatient Rehab): Page Night KHAI, [phone]. 7PM-7AM ([place], [place], [place], [place] and [facility] Rehab): Page on-call KHAI, . Jie Alexandre APRN-TERMITE CONTROL REPRESENTATIVE 01/05/24 1023 I have seen and evaluated the patient, and have reviewed the history above and agree. I have repeated the noland portions of the physical exam and concur with the KHAI findings. I have reviewed all laboratory findings and imaging reports/films. I agree with the plan as noted above Dr Delmy Roger MD, MRCP 01/05/2024 7:10 PM Pharmacokinetic Consult - Follow Up Warfarin Dosing Hipolito Daniels is a 58 y.o. male for whom pharmacy has been consulted for warfarin dosing and monitoring. Subjective Indication for treatment: Anticoag Therapy Indication: Cardiac dysrhythmia Goal INR: Target INR: 2 - 3 Current Hematologic Labs Results from last 7 days Lab Units 01/05/24 0512 01/04/24 0433 01/03/24 0505 01/02/24 0444 01/01/24 0442 12/31/23 0506 12/30/23 0503 INR 2.1* 2.4* 2.7* 2.8* 2.5* 2.2* 2.1* Warfarin Administrations (last 168 hours) Date/Time Action Medication Dose 01/04/24 1512 Given warfarin (COUMADIN) tablet 3 mg 3 mg 01/03/24 1658 Given warfarin (COUMADIN) tablet 3 mg 3 mg 01/02/24 1711 Given warfarin (COUMADIN) tablet 3 mg 3 mg 01/01/24 1807 Given warfarin (COUMADIN) tablet 5 mg 5 mg 12/31/23 1808 Given warfarin (COUMADIN) tablet 5 mg 5 mg 12/30/23 1755 Given warfarin (COUMADIN) tablet 5 mg 5 mg 12/29/23 1550 Given warfarin (COUMADIN) tablet 5 mg 5 mg Assessment INR currently: therapeutic Drug-drug interactions: Duloxetine (Home medication) Drug-disease state interactions: Dm2, Low albumin Other pertinent information: Patient's home warfarin regimen is 5mg Jose,,Th and 7.5mg all other days. Dose reduced from home regimen due to increasing INR on 01/02 and low albumin. INR now back to downtrending but currently therapeutic. Plan RX Anticoag Warfarin IP dose plan: Change warfarin dose to 5 mg daily. Pharmacist will continue to follow patient's clinical progress daily. Ke Kamara PharmD Ext [phone] Images from the original note were not included. [facility] MEDICINE [facility] HOSPITALISTS MD Nadege Brunner, MD Mat Davis, MD Jemima Lewis, MD Bob Ball, MD Francheska Felipe, MD Roger Loja, MD Delmy Roger, MD Jayda Almendarez, TERMITE CONTROL REPRESENTATIVE Susan Ramírez, TERMITE CONTROL REPRESENTATIVE Sushila Sidhu, TERMITE CONTROL REPRESENTATIVE Meche Quiñonez, TERMITE CONTROL REPRESENTATIVE Nilda De La Rosa, TERMITE CONTROL REPRESENTATIVE Antonina Boo, TERMITE CONTROL REPRESENTATIVE Arely Cadena, TERMITE CONTROL REPRESENTATIVE Jie Alexandre, TERMITE CONTROL REPRESENTATIVE Con Garcia, TERMITE CONTROL REPRESENTATIVE Annalisa Hagan, TERMITE CONTROL REPRESENTATIVE Sushma Monzon, ERICKA Chavis, ERICKA Cortes, ERICKA Nielson, ERICKA Callaway, TERMITE CONTROL REPRESENTATIVE Sushma Wong, TERMITE CONTROL REPRESENTATIVE Thalia Maher, TERMITE CONTROL REPRESENTATIVE Bipin Turner, [facility] Hospital Medicine Progress Note Patient: Hipolito Daniels Date of : 1965 Room: [place] [address] PCP: SYDNEY GRIFFITH DO Admission date: 12/25/2023 10:08 PM Encounter date: 01/04/24 Hospital Day: 11 SUBJECTIVE Chief complaints: No chief complaint on file. Interval History: Status: stable. The patient was seen evaluated at bedside this afternoon. He reported that his lightheadedness and dizziness has improved today. He has had less episodes. It does not appear that his orthostatic vital signs have been checked recently. He continues to endorse having bilateral lower extremity pain. Review of Systems Constitutional: Positive for fatigue. Negative for chills and fever. HENT: Negative for ear pain and sore throat. Eyes: Negative for pain and visual disturbance. Respiratory: Negative for cough and shortness of breath. Cardiovascular: Positive for leg swelling. Negative for chest pain and palpitations. Gastrointestinal: Negative for abdominal pain and vomiting. Genitourinary: Negative for dysuria and hematuria. Musculoskeletal: Positive for gait problem. Negative for arthralgias and back pain. Skin: Positive for wound. Negative for color change. Neurological: Positive for dizziness and light-headedness. Negative for seizures and syncope. All other systems reviewed and are negative. OBJECTIVE BP 109/74 Pulse 103 Temp 37.1 C (98.7 F) (Oral) Resp 16 Ht 180.3 cm (5' 10.98 ) Wt 115.7 kg (255 lb 1.2 oz) SpO2 100% BMI 35.59 kg/m Temp: [36.7 C (98 F)-37.1 C (98.7 F)] 37.1 C (98.7 F) Pulse: [92-111] 103 Resp: [15-30] 16 BP: (95-125)/(55-82) 109/74 SpO2: [90 %-100 %] 100 % O2 Device: Nasal cannula O2 Flow Rate (L/min): [2 L/min] 2 L/min Intake/Output Summary (Last 24 hours) at 01/04/2024 0932 Last data filed at 01/04/2024 0859 Gross per 24 hour Intake 2997.42 ml Output -- Net 2997.42 ml Physical Exam Constitutional: General: He is not in acute distress. Appearance: He is well-developed. HENT: Head: Normocephalic. Right Ear: External ear normal. Left Ear: External ear normal. Nose: Nose normal. Mouth/Throat: Mouth: Mucous membranes are dry. Eyes: Conjunctiva/sclera: Conjunctivae normal. Pupils: Pupils are equal, round, and reactive to light. Cardiovascular: Rate and Rhythm: Normal rate. Rhythm irregular. Heart sounds: Normal heart sounds. No murmur heard. Pulmonary: Effort: Pulmonary effort is normal. Breath sounds: Normal breath sounds. No wheezing. Abdominal: General: Bowel sounds are normal. Palpations: Abdomen is soft. There is no mass. Tenderness: There is no abdominal tenderness. Musculoskeletal: General: Normal range of motion. Cervical back: Normal range of motion. Right lower le+ Edema present. Left lower le+ Edema present. Lymphadenopathy: Cervical: No cervical adenopathy. Skin: General: Skin is warm and dry. Findings: Erythema and wound present. Comments: BLL wrapped, noted to have rash on his back and arms Neurological: Mental Status: He is alert. Cranial Nerves: No cranial nerve deficit. Coordination: Coordination normal. Psychiatric: Behavior: Behavior normal. Medications Scheduled: atorvastatin, 80 mg, oral, Daily betamethasone (augmented), 1 Application, topical, BID DULoxetine, 60 mg, oral, Daily fluticasone propionate, 2 spray, each nare, Daily gabapentin, 200 mg, oral, TID glyBURIDE, 2.5 mg, oral, Daily with breakfast insulin lispro, 2-10 Units, subcutaneous, TID with meals insulin lispro, 2-8 Units, subcutaneous, Nightly isosorbide mononitrate, 30 mg, oral, Daily metoprolol tartrate, 100 mg, oral, BID midodrine, 10 mg, oral, TID pantoprazole, 40 mg, oral, QAM AC sodium chloride, 3 mL, intravenous, Q12H LUZ sodium hypochlorite, 1 Application, topical, BID vitamin E (dl, acetate), 400 Units, oral, BID warfarin, 3 mg, oral, Daily Infusions: sodium chloride 0.9 %, 10 mL/hr, Last Rate: Stopped (12/28/23 1730) As Needed: acetaminophen alum-mag hydroxide-simeth dextrose dextrose 50 % in water (D50W) diphenhydrAMINE glucagon (human recombinant) HYDROmorphone magnesium oxide ondansetron ODT oxyCODONE OR oxyCODONE potassium chloride OR potassium chloride sennosides-docusate sodium sodium chloride sodium chloride 0.9 % Allergies: Ciprofloxacin, Keflex [cephalexin], Albuterol, Penicillins, Shellfish derived, Unasyn [ampicillin-sulbactam], and Magnesium sulfate Code Status: Full Code Labs Recent Results (from the past 24 hour(s)) Bedside Glucose *Place/Obtain serum glucose if >500(>600 MRH) per glucometer. Collection Time: 01/03/24 11:41 AM Result Value Ref Range Bedside glucose 125 (H) 65 - 99 mg/dL Bedside Glucose *Place/Obtain serum glucose if >500(>600 MRH) per glucometer. Collection Time: 01/03/24 5:16 PM Result Value Ref Range Bedside glucose 267 (H) 65 - 99 mg/dL Bedside Glucose *Place/Obtain serum glucose if >500(>600 [facility]) per glucometer. Collection Time: 01/03/24 8:37 PM Result Value Ref Range Bedside glucose 119 (H) 65 - 99 mg/dL Protime & INR Collection Time: 01/04/24 4:33 AM Result Value Ref Range Protime 27.4 (H) 9.8 - 13.2 sec Inr 2.4 (H) 0.8 - 1.1 Comprehensive metabolic panel Collection Time: 01/04/24 4:33 AM Result Value Ref Range Sodium 140 134 - 146 mmol/L Potassium, Bld 4.1 3.5 - 5.0 mmol/L Chloride 101 98 - 109 mmol/L CO2 35 (H) 22 - 32 mmol/L Anion gap 4 (L) 5 - 15 mmol/L BUN 25 (H) 5 - 23 mg/dL Creatinine 0.76 0.60 - 1.30 mg/dL Glucose 124 (H) 65 - 99 mg/dL Calcium 7.8 (L) 8.5 - 10.5 mg/dL Total Protein 5.1 (L) 6.0 - 8.0 g/dL Albumin 2.2 (L) 3.2 - 5.3 g/dL Alkaline Phosphatase 306 (H) 39 - 130 U/L AST 56 (H) 0 - 41 U/L ALT 77 (H) 0 - 40 U/L Total bilirubin 0.9 0.3 - 1.2 mg/dL eGFR (CKD-EPI)non-race dependent >90 >59 ml/min/1.73sq.m Magnesium Collection Time: 01/04/24 4:33 AM Result Value Ref Range Magnesium 2.0 1.8 - 2.6 mg/dL CBC auto differential Collection Time: 01/04/24 4:33 AM Result Value Ref Range White Blood Cells 8.6 4.0 - 11.0 X10E9/L RBC count 3.66 (L) 4.10 - 5.70 X10E12/L Hemoglobin 11.4 (L) 13.0 - 17.0 g/dL Hematocrit 33.9 (L) 39 - 49 % MCV 93 80 - 100 fL MCH 31.2 27 - 34 pg MCHC 33.6 32 - 36 g/dL RDW 16.0 (H) 11.5 - 15.0 % Platelets 236 150 - 450 X10E9/L MPV 8.5 7 - 12 fL % neutrophils 75.2 % % lymphocytes 8.4 % % monocytes 11.1 % % eosinophils 4.9 % % Basophils 0.4 % Neutrophils Absolute (A) 6.5 1.5 - 6.6 X10E9/L Lymphocytes Absolute 0.7 (L) 1.0 - 3.5 X10E9/L Monocytes Absolute 1.0 (H) 0 - 0.9 X10E9/L Eosinophils Absolute 0.4 0.0 - 0.4 X10E9/L Basophils Absolute 0.0 0.0 - 0.2 X10E9/L Bedside Glucose *Place/Obtain serum glucose if >500(>600 MRH) per glucometer. Collection Time: 01/04/24 7:30 AM Result Value Ref Range Bedside glucose 135 (H) 65 - 99 mg/dL Radiology No results found. HOSPITAL PROBLEM LIST Principal Problem: Cellulitis Active Problems: Chronic atrial fibrillation ([facility]) Diastolic heart failure ([facility]) Essential hypertension Mixed hyperlipidemia Type 2 diabetes mellitus with obesity ([facility]) Venous ulcer of left lower extremity without varicose veins ([facility]-HCC) Venous ulcer of right lower extremity without varicose veins (CMS-HCC) Open wound of both lower extremities Lymphedema ASSESSMENT & PLAN Cellulitis/venous ulcer of bilateral lower extremities/drug rash Vascular surgery reconsulted, Wound care and hyperbaric Medicine following Infectious Disease signed off WBC WNL 12/23 blood cultures x2 negative 12/23 Superficial wound culture showed many mixed Gram-positive and Gram-negative organisms, >25 WBC 10/[address] Kiran PRN pain medication & scheduled duloxetine, gabapentin Dressing changes per vascular orders Hyperbaric treatment on hold--to be reevaluated Saturday Unasyn discontinued; no indication for antibiotics Continue p.r.n. Benadryl and topical steroid for rash--resolving Type 2 diabetes Hemoglobin A1c 7.3 Continue insulin sliding scale Atrial fibrillation/diastolic heart failure/hypertension/hyperlipide tata/orthostatic hypotension Cardiology signed off Currently in atrial fibrillation Repeat echo LVEF 55-60 present, mild MR, Mobile echogenic density on posterior leaflet of the mitral valve may be mobile calcific/degenerative disease or vegetation Continue Lipitor, Imdur, Lopressor, Coumadin Low suspicion for endocarditis per Cardiology Continue to monitor orthostatic vitals every 12 hours DVT/VTE prophylaxis: SCD's and pharmacologic prophylaxis, warfarin, continue home dose. GI prophylaxis: add pantoprazole. PT/OT to evaluate and treat. DC planning: [facility] Jie Alexandre APRN-TERMITE CONTROL REPRESENTATIVE 01/04/2024 9:32 AM [facility] Hospitalists 7AM-7PM (all facilities): Message rounding [facility] in [place] or page through [employer]. 7PM-7AM ([facility], [facility] Psychiatry and Inpatient Rehab): Page Night KHAI, [phone]. 7PM-7AM ([place], [place], [place], [place] and [facility] Rehab): Page on-call KHAI, . Jie Alexandre APRN-TERMITE CONTROL REPRESENTATIVE 01/04/24 1088 I have seen and evaluated the patient, and have reviewed the history above and agree. I have repeated the [place] portions of the physical exam and concur with the KHAI findings. I have reviewed all laboratory findings and imaging reports/films. I agree with the plan as noted above Dizziness has improved. Dry mucous membrane. Encourage to drink plenty of fluids Dr Delmy Roger MD, MRCP 01/04/2024 6:44 PM Pharmacokinetic Consult - Follow Up Warfarin Dosing Hipolito Daniels is a 58 y.o. male for whom pharmacy has been consulted for warfarin dosing and monitoring. Subjective Indication for treatment: Anticoag Therapy Indication: Cardiac dysrhythmia Goal INR: Target INR: 2 - 3 Current Hematologic Labs Results from last 7 days Lab Units 01/04/24 0433 01/03/24 0505 01/02/24 0444 01/01/24 0442 12/31/23 0506 12/30/23 0503 12/29/23 0513 INR 2.4* 2.7* 2.8* 2.5* 2.2* 2.1* 2.1* Warfarin Administrations (last 168 hours) Date/Time Action Medication Dose 01/03/24 1658 Given warfarin (COUMADIN) tablet 3 mg 3 mg 01/02/24 1711 Given warfarin (COUMADIN) tablet 3 mg 3 mg 01/01/24 1807 Given warfarin (COUMADIN) tablet 5 mg 5 mg 12/31/23 1808 Given warfarin (COUMADIN) tablet 5 mg 5 mg 12/30/23 1755 Given warfarin (COUMADIN) tablet 5 mg 5 mg 12/29/23 1550 Given warfarin (COUMADIN) tablet 5 mg 5 mg 12/28/23 1533 Given warfarin (COUMADIN) tablet 5 mg 5 mg Assessment INR currently: therapeutic Drug-drug interactions: Duloxetine (home medication) Drug-disease state interactions: DM2, Low albumin Other pertinent information: Patient's home warfarin regimen is 5mg Jose,,Th and 7.5mg all other days Plan RX Anticoag Warfarin IP dose plan: Continue current warfarin regimen of 3 mg daily. Pharmacist will continue to follow patient's clinical progress daily. Ke Kamara PharmD Ext [phone] Images from the original note were not included. [facility] Wound Care Service Line - Progress Note Date of Admission: 12/25/2023 10:08 PM Patient: Hipolito Daniels a 58 y.o. male Subjective: Following for bilateral lower extremity . Current wound care regimen includes moist to moist saline in the AM and moist to moist Dakins in the PM, as well as hyperbaric treatments. He states the pain at the wound sites is decreased but remains significant, especially with dressing changes. Vitals: Vitals: 01/03/24 1138 BP: 105/65 Pulse: 109 Resp: 15 Temp: 36.7 C (98.1 F) SpO2: 90% I/O last 3 completed shifts: In: 1090 [P.O.:1090] Out: - I/O this shift: In: 240 [P.O.:240] Out: - Pain: bilateral lower leg wounds, especially with dressing changes Physical Exam Constitutional: General: He is not in acute distress. HENT: Head: Normocephalic and atraumatic. Cardiovascular: Rate and Rhythm: Normal rate. Pulmonary: Effort: Pulmonary effort is normal. No respiratory distress. Abdominal: Palpations: Abdomen is soft. Musculoskeletal: General: Tenderness present. Right lower leg: Edema present. Left lower leg: Edema present. Skin: General: Skin is warm and dry. Neurological: Mental Status: He is alert and oriented to person, place, and time. Psychiatric: Behavior: Behavior normal. Wound Assessment: Left posterior lower leg Left anterior lower leg Right posterior lower leg Right anterior lower leg Location: left, right, and lower legs Type of Wound/Etiology/Severity: venous wounds, fat-layer exposed, present on admission Undermining/Tunneling: no/no Drainage/Exudate/Odor: moderate serous no odor Wound bed: granulation Wound Edges/Periwound: attached wound edges, edemain periwound area Measurable Improvement: stable and improved Wound 12/23/23 1 Leg Left;Anterior (Active) Wound Image 01/01/24 0515 Site Assessment Edema;Excoriated;Moist;Painful;P ink;Red 01/02/242239 Candi-wound Assessment Intact;Painful;[place];Edema 01/02/242239 Wound Length (cm) 13.5 cm 12/23/23 1300 Closure Adhesive bandage 12/29/23 1600 Drainage Description Serosanguineous;Odor Foul 12/29/23 1600 Drainage Amount Moderate 12/29/23 1600 Treatments Dakins solution 01/02/242239 Dressing Type Abdominal dressing;Dry Dressing;Gauze Rolled/Kerlix;Moist to moist 01/02/242239 Dressing Changed Changed 01/03/24 0846 Dressing Status Clean;Dry;Intact 01/02/242239 Pressure Injury Stage U 12/23/23 1300 Wound 12/23/23 2 Leg Right;Anterior (Active) Wound Image 01/01/24 0515 Site Assessment Edema;Fragile;Moist;Painful;[place] ;Red 01/02/240 Candi-wound Assessment Excoriated;Fragile;Edema;Painful ;[place];Red 01/02/24 2240 Wound Length (cm) 30 cm 12/23/23 1300 Closure Adhesive bandage 12/29/23 1600 Drainage Description Serosanguineous 12/29/23 1600 Drainage Amount Large Copious 12/29/23 1600 Treatments Dakins solution 01/02/242239 Dressing Type Abdominal dressing;Dry Dressing;Gauze Rolled/Kerlix;Moist to moist 01/02/242239 Dressing Changed Changed 01/03/24845 Dressing Status Clean;Dry;Intact 01/02/242239 Wound Bed Slough (%) 75% to 100% 12/23/23 1300 Wound Bed Eschar (%) 25% to 50% 12/23/23 1300 Pressure Injury Stage U 12/23/23 1300 Wound 12/23/23 3 Leg Left;Posterior (Active) Wound Image 01/01/24 0515 Site Assessment Edema;Excoriated;Moist;Painful;P ink;Red;Black 01/02/242239 Candi-wound Assessment Excoriated;Painful;[place] 01/02/242239 Wound Length (cm) 11 cm 12/29/23 1600 Wound Width (cm) 8 cm 12/29/23 1600 Wound Surface Area (cm^2) 88 cm^2 12/29/23 1600 Wound Depth (cm) 3 cm 12/29/23 1600 Wound Volume (cm^3) 264 cm^3 12/29/23 1600 Change in Wound Size % 70.67 12/29/23 1600 Closure Adhesive bandage 12/29/23 1600 Drainage Description Serosanguineous;Yellow;Odor Foul 12/29/23 1600 Drainage Amount Large Copious 12/29/23 1600 Treatments Dakins solution 01/02/242239 Dressing Type Abdominal dressing;Gauze Rolled/Kerlix;Dry Dressing;Moist to dry 01/02/242239 Dressing Changed Changed 01/03/2446 Dressing Status Clean;Dry;Intact 01/02/242239 Wound Bed Slough (%) 50% to 75% 12/23/23 1300 Wound Bed Eschar (%) 50% to 75% 12/23/23 1300 Pressure Injury Stage U 12/23/23 1300 Wound 12/27/23 Incision Leg Posterior;Right (Active) Wound Image 01/01/24 0515 Site Assessment Black;Edema;Excoriated;Painful;M oist;[place];Red 01/02/242239 Candi-wound Assessment Fragile;Painful;[place] 01/02/242239 Wound Length (cm) 11 cm 12/29/23 1600 Wound Width (cm) 7 cm 12/29/23 1600 Wound Surface Area (cm^2) 77 cm^2 12/29/23 1600 Wound Depth (cm) 2 cm 12/29/23 1600 Wound Volume (cm^3) 154 cm^3 12/29/23 1600 Change in Wound Size % 48.67 12/29/23 1600 Closure Adhesive bandage 12/29/23 1600 Drainage Description Serosanguineous;Yellow;Odor Foul 12/31/23 1800 Drainage Amount Moderate 12/31/23 1800 Treatments Dakins solution 01/02/242239 Dressing Type Abdominal dressing;Dry Dressing;Gauze Rolled/Kerlix;Moist to dry 01/02/242239 Dressing Changed Changed 01/03/24 0846 Dressing Status Clean;Dry;Intact 01/02/242239 Studies Reviewed: Labs Reviewed: Results from last 7 days Lab Units 01/03/24 0505 01/02/24 0444 01/01/24 0442 12/31/23 0506 12/30/23 0503 WBC X10E9/L 7.8 7.8 9.8 9.6 8.4 HEMOGLOBIN g/dL 10.7* 10.6* 11.5* 12.7* 12.2* HEMATOCRIT % 31.8* 31.7* 33.9* 37.5* 36.0* MCV fL 94 94 93 93 93 PLATELETS X10E9/L 198 167 181 205 159 Results from last 7 days Lab Units 01/03/24 1141 01/03/24 0705 01/03/24 0505 01/02/24 2112 01/02/24 1710 01/02/24 0719 01/02/24 0444 01/01/24 0731 01/01/24 0442 12/31/23 0708 12/31/23 0506 12/30/23 0843 12/30/23 0503 POTASSIUM mmol/L -- -- 4.2 -- -- -- 4.1 -- 4.4 -- 4.3 -- 4.6 CALCIUM mg/dL -- -- 7.8* -- -- -- 7.8* -- 7.8* -- 7.9* -- 7.9* CO2 mmol/L -- -- 36* -- -- -- 38* -- 37* -- 31 -- 34* BUN mg/dL -- -- 30* -- -- -- 33* -- 38* -- 37* -- 34* CREATININE mg/dL -- -- 0.90 -- -- -- 0.89 -- 0.94 -- 0.95 -- 1.06 BEDSIDE GLUCOSE mg/dL 125* 99 -- 187* 182* < > -- < > -- < > -- < > -- GLUCOSE mg/dL -- -- 107* -- -- -- 107* -- 115* -- 114* -- 186* < > = values in this interval not displayed. Results from last 7 days Lab Units 01/03/24 0505 01/02/2444301/01/2444112/31/23 0506 12/30/23 0503 INR 2.7* 2.8* 2.5* 2.2* 2.1* PROTIME sec 29.9* 31.9* 27.7* 24.4* 23.6* Results from last 7 days Lab Units 01/03/24 0505 01/02/24 04401/01/24 04412/31/23 0506 12/30/23 0503 ALT U/L 76* 81* 94* 92* 93* AST U/L 53* 58* 81* 66* 81* ALK PHOS U/L 262* 260* 306* 298* 298* Pathology/Cytology Results No results found for the last 168 hours. Microbiology Results No results found for the last 168 hours. Medications Reviewed: atorvastatin, 80 mg, oral, Daily betamethasone (augmented), 1 Application, topical, BID DULoxetine, 60 mg, oral, Daily fluticasone propionate, 2 spray, each nare, Daily gabapentin, 200 mg, oral, TID glyBURIDE, 2.5 mg, oral, Daily with breakfast insulin lispro, 2-10 Units, subcutaneous, TID with meals insulin lispro, 2-8 Units, subcutaneous, Nightly isosorbide mononitrate, 30 mg, oral, Daily metoprolol tartrate, 100 mg, oral, BID midodrine, 10 mg, oral, TID pantoprazole, 40 mg, oral, QAM AC sodium chloride, 3 mL, intravenous, Q12H LUZ sodium hypochlorite, 1 Application, topical, BID vitamin E (dl, acetate), 400 Units, oral, BID warfarin, 3 mg, oral, Daily sodium chloride 0.9 %, 10 mL/hr, Last Rate: Stopped (12/28/23 1730) sodium chloride 0.9 %, 75 mL/hr, Last Rate: 75 mL/hr (01/03/24 0855) Imaging Reviewed: No results found. Vas art duplex lwr bilateral Result Date: 12/25/2023 Right: Non-visualization of the posterior tibial, anterior tibial and peroneal arteries due to extensive wounds and bandage material. External iliac through SFA plaque with multiphasic waveforms and diastolic flow reversal or hyperemic flow that varies with heart rate. Left: Non-visualization of the posterior tibial, anterior tibial and peroneal arteries due to extensive wounds and bandage material. External iliac through SFA plaque with multiphasic waveforms and diastolic flow reversal or hyperemic flow that varies with heart rate. General: In-patient, bedside examination. Conclusions: BILATERAL:Normal lower extremity arterial duplex examination.Limited visualization of the lower extremity for the outflow arteries at the infra popliteal level, please see the text No results found for this or any previous visit from the past 1080 days. No results found for this or any previous visit from the past 1080 days. Assessment/Plan/Education: Principal Problem: Cellulitis Active Problems: Chronic atrial fibrillation ([facility]) Diastolic heart failure ([facility]) Essential hypertension Mixed hyperlipidemia Type 2 diabetes mellitus with obesity ([facility]) Venous ulcer of left lower extremity without varicose veins ([facility]) Venous ulcer of right lower extremity without varicose veins ([facility]) Open wound of both lower extremities Lymphedema Wound Plan Dressing: cleanse skin with saline mild soap and water, rinse, pat dry. : After cleansing, to posterior leg wounds apply xeroform to wound bed, cover with silver alginate then foam dressing, add additional ABD pads as needed for drainage. Xeroform = inner layer, maxorb/ alginate= middle layer, optifoam foam/ ABD outer layer To anterior leg wounds, apply xeroform to wounds, cover with ABD dressings Secure with kerlix Change daily and prn Offloading/Skin Care/Edema Management: - continue specialty bed JOSUE/pressure redistribution - turn and reposition minimally every 2 hours - pad and protect bony prominences - moisturize dry skin, do not massage vigorously - elevate bilateral lower extremity/ies and float heel(s) on pillows Antibiotics: per ID Studies/Testing: as above Medical Management: per primary service HOLD HBO for now - will re-evaluate on Saturday Wound care will continue to follow while inpatient. PATY SMITH 01/03/24 [facility] [id number] Secure Chat or Page [phone] PATY Smith 01/03/24 1258 Pharmacokinetic Consult - Follow Up Warfarin Dosing Hipolito Daniels is a 58 y.o. male for whom pharmacy has been consulted for warfarin dosing and monitoring. Subjective Anticoag Therapy Indication: Cardiac dysrhythmia Target INR: 2 - 3 Current inpatient warfarin regimen: see administrations Current Hematologic Labs Results from last 7 days Lab Units 01/03/24 0505 01/02/24 0444 01/01/24 0442 12/31/23 0506 12/30/23 0503 12/29/23 0513 12/28/23 0502 INR 2.7* 2.8* 2.5* 2.2* 2.1* 2.1* 1.9* Warfarin Administrations (last 168 hours) Date/Time Action Medication Dose 01/02/24 1711 Given warfarin (COUMADIN) tablet 3 mg 3 mg 01/01/24 1807 Given warfarin (COUMADIN) tablet 5 mg 5 mg 12/31/23 1808 Given warfarin (COUMADIN) tablet 5 mg 5 mg 12/30/23 1755 Given warfarin (COUMADIN) tablet 5 mg 5 mg 12/29/23 1550 Given warfarin (COUMADIN) tablet 5 mg 5 mg 12/28/23 1533 Given warfarin (COUMADIN) tablet 5 mg 5 mg Assessment INR currently: therapeutic Plan RX Anticoag Warfarin IP dose plan: Continue current warfarin regimen of 3 mg daily. Pharmacist will continue to follow patient's clinical progress daily. Mecca Jacinto RPH Ext [phone] Images from the original note were not included. [facility] HOSPITALISTS Eldon Green, MD Nadege Richards, MD Mat Davis, MD Jemima Lewis, MD Bob Ball, MD Francheska Felipe, MD Roger Loja, MD Delmy Roger, MD Jayda Almendarez, TERMITE CONTROL REPRESENTATIVE Susan Ramírez, [facility] Sushila Sidhu, [facility] Meche Quiñonez, [facility] Nilda De La Rosa, [facility] Antonina Boo, [facility] Arely Cadena, [facility] Jie Alexandre, [facility] Con Garcia, [facility] Annalisa Hagan, [facility] Sushma Monzon, [facility] Jocelynn Chavis, [facility] Yanet Cortes, [facility] Carole Nielson, [facility] Kayce Callaway, [facility] Sushma Wong, [facility] Thalia Maher, [facility] Bipin Turner, [facility] Medicine Progress Note Patient: Hipolito Daniels Date of : 1965 Room: [place] [id number] PCP: SYDNEY GRIFFITH DO Admission date: 12/25/2023 10:08 PM Encounter date: 01/03/24 Hospital Day: 10 SUBJECTIVE Chief complaints: No chief complaint on file. Interval History: Status: stable. The patient was seen and evaluated at bedside this afternoon. He continues to endorse having lightheadedness and dizziness, he did have positive orthostatic vital signs this morning. Initiated on IV fluids and given another 1 L bolus. Patient remains in atrial fibrillation with rates in the low 100s, blood pressure remains on the low side. Review of Systems Constitutional: Positive for fatigue. Negative for chills and fever. HENT: Negative for ear pain and sore throat. Eyes: Negative for pain and visual disturbance. Respiratory: Negative for cough and shortness of breath. Cardiovascular: Positive for leg swelling. Negative for chest pain and palpitations. Gastrointestinal: Negative for abdominal pain and vomiting. Genitourinary: Negative for dysuria and hematuria. Musculoskeletal: Positive for gait problem. Negative for arthralgias and back pain. Skin: Positive for rash and wound. Negative for color change. Itching Neurological: Positive for dizziness and light-headedness. Negative for seizures and syncope. All other systems reviewed and are negative. OBJECTIVE BP 101/63 Pulse 117 Temp 36.7 C (98 F) (Oral) Resp 21 Ht 180.3 cm (5' 10.98 ) Wt 113.5 kg (250 lb 3.6 oz) SpO2 91% BMI 34.91 kg/m Temp: [36.6 C (97.9 F)-36.7 C (98.1 F)] 36.7 C (98 F) Pulse: [87-119] 117 Resp: [13-21] 21 BP: (80-104)/(48-72) 101/63 SpO2: [90 %-94 %] 91 % O2 Device: None (Room air) O2 Flow Rate (L/min): [0 L/min] 0 L/min Intake/Output Summary (Last 24 hours) at 01/03/2024 0845 Last data filed at 01/03/2024 0800 Gross per 24 hour Intake 780 ml Output -- Net 780 ml Physical Exam Constitutional: General: He is not in acute distress. Appearance: He is well-developed. HENT: Head: Normocephalic. Right Ear: External ear normal. Left Ear: External ear normal. Nose: Nose normal. Eyes: Conjunctiva/sclera: Conjunctivae normal. Pupils: Pupils are equal, round, and reactive to light. Cardiovascular: Rate and Rhythm: Normal rate. Rhythm irregular. Heart sounds: Normal heart sounds. No murmur heard. Pulmonary: Effort: Pulmonary effort is normal. Breath sounds: Normal breath sounds. No wheezing. Abdominal: General: Bowel sounds are normal. Palpations: Abdomen is soft. There is no mass. Tenderness: There is no abdominal tenderness. Musculoskeletal: General: Normal range of motion. Cervical back: Normal range of motion. Right lower le+ Edema present. Left lower le+ Edema present. Lymphadenopathy: Cervical: No cervical adenopathy. Skin: General: Skin is warm and dry. Findings: Erythema, rash and wound present. Comments: BLL wrapped, noted to have rash on his back and arms Neurological: Mental Status: He is alert. Cranial Nerves: No cranial nerve deficit. Coordination: Coordination normal. Psychiatric: Behavior: Behavior normal. Medications Scheduled: atorvastatin, 80 mg, oral, Daily betamethasone (augmented), 1 Application, topical, BID DULoxetine, 60 mg, oral, Daily fluticasone propionate, 2 spray, each nare, Daily gabapentin, 200 mg, oral, TID glyBURIDE, 2.5 mg, oral, Daily with breakfast insulin lispro, 2-10 Units, subcutaneous, TID with meals insulin lispro, 2-8 Units, subcutaneous, Nightly isosorbide mononitrate, 30 mg, oral, Daily metoprolol tartrate, 100 mg, oral, BID midodrine, 10 mg, oral, TID pantoprazole, 40 mg, oral, QAM AC sodium chloride, 3 mL, intravenous, Q12H LUZ sodium hypochlorite, 1 Application, topical, BID vitamin E (dl, acetate), 400 Units, oral, BID warfarin, 3 mg, oral, Daily Infusions: sodium chloride 0.9 %, 10 mL/hr, Last Rate: Stopped (12/28/23 1730) As Needed: acetaminophen alum-mag hydroxide-simeth dextrose dextrose 50 % in water (D50W) diphenhydrAMINE glucagon (human recombinant) HYDROmorphone magnesium oxide ondansetron ODT oxyCODONE OR oxyCODONE potassium chloride OR potassium chloride sennosides-docusate sodium sodium chloride sodium chloride 0.9 % Allergies: Ciprofloxacin, Keflex [cephalexin], Albuterol, Penicillins, Shellfish derived, Unasyn [ampicillin-sulbactam], and Magnesium sulfate Code Status: Full Code Labs Recent Results (from the past 24 hour(s)) Bedside Glucose *Place/Obtain serum glucose if >500(>600 MRH) per glucometer. Collection Time: 01/02/24 11:42 AM Result Value Ref Range Bedside glucose 116 (H) 65 - 99 mg/dL Bedside Glucose *Place/Obtain serum glucose if >500(>600 MRH) per glucometer. Collection Time: 01/02/24 2:19 PM Result Value Ref Range Bedside glucose 131 (H) 65 - 99 mg/dL Bedside Glucose *Place/Obtain serum glucose if >500(>600 MRH) per glucometer. Collection Time: 01/02/24 5:10 PM Result Value Ref Range Bedside glucose 182 (H) 65 - 99 mg/dL Bedside Glucose *Place/Obtain serum glucose if >500(>600 MRH) per glucometer. Collection Time: 01/02/24 9:12 PM Result Value Ref Range Bedside glucose 187 (H) 65 - 99 mg/dL Protime & INR Collection Time: 01/03/24 5:05 AM Result Value Ref Range Protime 29.9 (H) 9.8 - 13.2 sec Inr 2.7 (H) 0.8 - 1.1 Comprehensive metabolic panel Collection Time: 01/03/24 5:05 AM Result Value Ref Range Sodium 142 134 - 146 mmol/L Potassium, Bld 4.2 3.5 - 5.0 mmol/L Chloride 102 98 - 109 mmol/L CO2 36 (H) 22 - 32 mmol/L Anion gap 4 (L) 5 - 15 mmol/L BUN 30 (H) 5 - 23 mg/dL Creatinine 0.90 0.60 - 1.30 mg/dL Glucose 107 (H) 65 - 99 mg/dL Calcium 7.8 (L) 8.5 - 10.5 mg/dL Total Protein 4.7 (L) 6.0 - 8.0 g/dL Albumin 2.2 (L) 3.2 - 5.3 g/dL Alkaline Phosphatase 262 (H) 39 - 130 U/L AST 53 (H) 0 - 41 U/L ALT 76 (H) 0 - 40 U/L Total bilirubin 0.7 0.3 - 1.2 mg/dL eGFR (CKD-EPI)non-race dependent >90 >59 ml/min/1.73sq.m Magnesium Collection Time: 01/03/24 5:05 AM Result Value Ref Range Magnesium 2.0 1.8 - 2.6 mg/dL CBC auto differential Collection Time: 01/03/24 5:05 AM Result Value Ref Range White Blood Cells 7.8 4.0 - 11.0 X10E9/L RBC count 3.40 (L) 4.10 - 5.70 X10E12/L Hemoglobin 10.7 (L) 13.0 - 17.0 g/dL Hematocrit 31.8 (L) 39 - 49 % MCV 94 80 - 100 fL MCH 31.6 27 - 34 pg MCHC 33.7 32 - 36 g/dL RDW 15.6 (H) 11.5 - 15.0 % Platelets 198 150 - 450 X10E9/L MPV 8.2 7 - 12 fL % neutrophils 75.3 % % lymphocytes 9.3 % % monocytes 9.5 % % eosinophils 5.5 % % Basophils 0.4 % Neutrophils Absolute (A) 5.9 1.5 - 6.6 X10E9/L Lymphocytes Absolute 0.7 (L) 1.0 - 3.5 X10E9/L Monocytes Absolute 0.7 0 - 0.9 X10E9/L Eosinophils Absolute 0.4 0.0 - 0.4 X10E9/L Basophils Absolute 0.0 0.0 - 0.2 X10E9/L Bedside Glucose *Place/Obtain serum glucose if >500(>600 MRH) per glucometer. Collection Time: 01/03/24 7:05 AM Result Value Ref Range Bedside glucose 99 65 - 99 mg/dL Radiology No results found. HOSPITAL PROBLEM LIST Principal Problem: Cellulitis Active Problems: Chronic atrial fibrillation ([facility]) Diastolic heart failure ([facility] [place] [place]) Essential hypertension Mixed hyperlipidemia Type 2 diabetes mellitus with obesity ([facility] [place] [place]) Venous ulcer of left lower extremity without varicose veins ([facility] [place] [place]) Venous ulcer of right lower extremity without varicose veins ([facility] [place] [place]) Open wound of both lower extremities Lymphedema ASSESSMENT & PLAN Cellulitis/venous ulcer of bilateral lower extremities/drug rash Vascular surgery reconsulted, Wound care and hyperbaric Medicine following Infectious Disease signed off WBC WNL 12/23 blood cultures x2 negative 12/23 Superficial wound culture showed many mixed Gram-positive and Gram-negative organisms, >25 WBC 10/[address] Kiran PRN pain medication & scheduled duloxetine, gabapentin Dressing changes per vascular orders Currently undergoing hyperbaric treatment b.i.d. Unasyn discontinued; no indication for antibiotics Continue p.r.n. Benadryl and topical steroid for rash Type 2 diabetes Hemoglobin A1c 7.3 Continue insulin sliding scale Atrial fibrillation/diastolic heart failure/hypertension/hyperlipide tata/orthostatic hypotension Cardiology signed off Currently in atrial fibrillation--rates in the low 100s today Repeat echo LVEF 55-60 present, mild MR, Mobile echogenic density on posterior leaflet of the mitral valve may be mobile calcific/degenerative disease or vegetation Continue Lipitor, Imdur, Lopressor, Coumadin Low suspicion for endocarditis per Cardiology Positive orthostatic vital signs this morning Continue to monitor orthostatic vitals every 12 hours Continue IV fluids for 24 hours with 1 L bolus DVT/VTE prophylaxis: SCD's and pharmacologic prophylaxis, warfarin, continue home dose. GI prophylaxis: add pantoprazole. PT/OT to evaluate and treat. DC planning: [facility] PATY Reyes 01/03/2024 8:45 AM [facility] Medicine [facility] Hospitalists 7AM-7PM (all facilities): Message rounding KHAI in [place] or page through [employer]. 7PM-7AM ([facility], [facility] Psychiatry and Inpatient Rehab): Page Night KHAI, [phone]. 7PM-7AM ([place], [place], [place], [place] and [facility] Rehab): Page on-call KHAI, . PATY Reyes 01/03/24 1115 I have seen and evaluated the patient, and have reviewed the history above and agree. I have repeated the noland portions of the physical exam and concur with the KHAI findings. I have reviewed all laboratory findings and imaging reports/films. I agree with the plan as noted above Orthostatic positive this morning- give one liter of fluid bolus Recheck orthotast after fluid bolus Dr Delmy Roger MD, MRCP 01/03/2024 6:53 PM Pharmacokinetic Consult - Follow Up Warfarin Dosing Hipolito Daniels is a 58 y.o. male for whom pharmacy has been consulted for warfarin dosing and monitoring. Subjective Anticoag Therapy Indication: Cardiac dysrhythmia Target INR: 2 - 3 Current inpatient warfarin regimen: 5 mg daily Current Hematologic Labs Results from last 7 days Lab Units 01/02/24 0444 01/01/24 0442 12/31/23 0506 12/30/23 0503 12/29/23 0513 12/28/23 0502 12/27/23 0505 INR 2.8* 2.5* 2.2* 2.1* 2.1* 1.9* 1.6* Warfarin Administrations (last 168 hours) Date/Time Action Medication Dose 01/01/24 1807 Given warfarin (COUMADIN) tablet 5 mg 5 mg 12/31/23 1808 Given warfarin (COUMADIN) tablet 5 mg 5 mg 12/30/23 1755 Given warfarin (COUMADIN) tablet 5 mg 5 mg 12/29/23 1550 Given warfarin (COUMADIN) tablet 5 mg 5 mg 12/28/23 1533 Given warfarin (COUMADIN) tablet 5 mg 5 mg 12/26/23 1639 Given warfarin (COUMADIN) tablet 5 mg 5 mg Assessment INR currently: therapeutic Plan RX Anticoag Warfarin IP dose plan: Change warfarin dose to 3 mg daily. Pharmacist will continue to follow patient's clinical progress daily. [place]cca Jacinto [facility] ED Ext [id number] Images from the original note were not included. [facility] MEDICINE [facility] HOSPITALISTS MD Nadege Brunner, MD Mat Davis, MD Jemima Lewis, MD Bob Ball, MD Francheska Felipe, MD Roger Loja, MD Delmy Roger, MD Jayda Almendarez, [employer] REPRESENTATIVE Susan Ramírez, [employer] REPRESENTATIVE Sushila Sidhu, [employer] REPRESENTATIVE Meche Quiñonez, [employer]MITE CONTROL REPRESENTATIVE Nilda De La Rosa, [employer]MITE CONTROL REPRESENTATIVE Antonina Boo, [employer]MITE CONTR[employer] REPRESENTATIVE Arely Cadena, [employer] CONTR[employer] REPRESENTATIVE Jie Alexandre, [employer]MITE [employer] REPRESENTATIVE Con Garcia, [employer] REPRESENTATIVE Annalisa [facility]agan, [employer] REPRESENTATIVE Sushma [facility], [employer] REPRESENTATIVE Jocelynn [facility]avis, [employer] REPRESENTATIVE Yanet Cortes, [employer] REPRESENTATIVE Carole Nielson, [employer] CONTR[employer] REPRESENTATIVE Kayce Callaway, [employer] REPRESENTATIVE Sushma Wong, [employer] REPRESENTATIVE Thalia Maher, [employer] REPRESENTATIVE Bipin Turner, [facility] Hospital Medicine Progress Note Patient: Hipolito Daniels Date of : 1965 Room: [place] [address] PCP: SYDNEY GRIFFITH DO Admission date: 12/25/2023 10:08 PM Encounter date: 01/02/24 Hospital Day: 9 SUBJECTIVE Chief complaints: No chief complaint on file. Interval History: Status: stable. The patient was seen and evaluated at bedside this afternoon. He endorsed having bilateral lower extremity pain and swelling. He reports that his rash has been improving. Patient does endorse having intermittent dizziness at times. He otherwise has no other concerns or complaints. Review of Systems Constitutional: Positive for fatigue. Negative for chills and fever. HENT: Negative for ear pain and sore throat. Eyes: Negative for pain and visual disturbance. Respiratory: Negative for cough and shortness of breath. Cardiovascular: Positive for leg swelling. Negative for chest pain and palpitations. Gastrointestinal: Negative for abdominal pain and vomiting. Genitourinary: Negative for dysuria and hematuria. Musculoskeletal: Positive for gait problem. Negative for arthralgias and back pain. Skin: Positive for rash and wound. Negative for color change. Itching Neurological: Positive for dizziness. Negative for seizures and syncope. All other systems reviewed and are negative. OBJECTIVE BP 115/79 Pulse 108 Temp 36.8 C (98.2 F) (Oral) Resp 12 Ht 180.3 cm (5' 10.98 ) Wt 111.7 kg (246 lb 4.1 oz) SpO2 93% BMI 34.36 kg/m Temp: [36.3 C (97.4 F)-36.8 C (98.2 F)] 36.8 C (98.2 F) Pulse: [99-111] 108 Resp: [12-18] 12 BP: (80-119)/(47-98) 115/79 SpO2: [92 %-95 %] 93 % O2 Device: None (Room air) O2 Flow Rate (L/min): [0 L/min] 0 L/min Intake/Output Summary (Last 24 hours) at 01/02/2024 09 Last data filed at 01/02/2024 0100 Gross per 24 hour Intake 910 ml Output -- Net 910 ml Physical Exam Constitutional: General: He is not in acute distress. Appearance: He is well-developed. HENT: Head: Normocephalic. Right Ear: External ear normal. Left Ear: External ear normal. Nose: Nose normal. Eyes: Conjunctiva/sclera: Conjunctivae normal. Pupils: Pupils are equal, round, and reactive to light. Cardiovascular: Rate and Rhythm: Normal rate. Rhythm irregular. Heart sounds: Normal heart sounds. No murmur heard. Pulmonary: Effort: Pulmonary effort is normal. Breath sounds: Normal breath sounds. No wheezing. Abdominal: General: Bowel sounds are normal. Palpations: Abdomen is soft. There is no mass. Tenderness: There is no abdominal tenderness. Musculoskeletal: General: Normal range of motion. Cervical back: Normal range of motion. Right lower le+ Edema present. Left lower le+ Edema present. Lymphadenopathy: Cervical: No cervical adenopathy. Skin: General: Skin is warm and dry. Findings: Erythema, rash and wound present. Comments: BLL wrapped, noted to have rash on his back and arms Neurological: Mental Status: He is alert. Cranial Nerves: No cranial nerve deficit. Coordination: Coordination normal. Psychiatric: Behavior: Behavior normal. Medications Scheduled: atorvastatin, 80 mg, oral, Daily betamethasone (augmented), 1 Application, topical, BID DULoxetine, 60 mg, oral, Daily fluticasone propionate, 2 spray, each nare, Daily gabapentin, 200 mg, oral, TID glyBURIDE, 2.5 mg, oral, Daily with breakfast insulin lispro, 2-10 Units, subcutaneous, TID with meals insulin lispro, 2-8 Units, subcutaneous, Nightly isosorbide mononitrate, 60 mg, oral, Daily metoprolol tartrate, 100 mg, oral, BID pantoprazole, 40 mg, oral, QAM AC sodium chloride, 3 mL, intravenous, Q12H LUZ sodium hypochlorite, 1 Application, topical, BID vitamin E (dl, acetate), 400 Units, oral, BID warfarin, 5 mg, oral, Daily Infusions: sodium chloride 0.9 %, 10 mL/hr, Last Rate: Stopped (12/28/23 1730) As Needed: acetaminophen alum-mag hydroxide-simeth dextrose dextrose 50 % in water (D50W) diphenhydrAMINE glucagon (human recombinant) HYDROmorphone magnesium oxide midodrine ondansetron ODT oxyCODONE OR oxyCODONE potassium chloride OR potassium chloride sennosides-docusate sodium sodium chloride sodium chloride 0.9 % Allergies: Ciprofloxacin, Keflex [cephalexin], Albuterol, Penicillins, Shellfish derived, Unasyn [ampicillin-sulbactam], and Magnesium sulfate Code Status: Full Code Labs Recent Results (from the past 24 hour(s)) Bedside Glucose *Place/Obtain serum glucose if >500(>600 MRH) per glucometer. Collection Time: 01/01/24 11:58 AM Result Value Ref Range Bedside glucose 208 (H) 65 - 99 mg/dL Bedside Glucose *Place/Obtain serum glucose if >500(>600 MRH) per glucometer. Collection Time: 01/01/24 3:02 PM Result Value Ref Range Bedside glucose 207 (H) 65 - 99 mg/dL Bedside Glucose *Place/Obtain serum glucose if >500(>600 MRH) per glucometer. Collection Time: 01/01/24 6:05 PM Result Value Ref Range Bedside glucose 154 (H) 65 - 99 mg/dL Bedside Glucose *Place/Obtain serum glucose if >500(>600 MRH) per glucometer. Collection Time: 01/01/24 9:14 PM Result Value Ref Range Bedside glucose 241 (H) 65 - 99 mg/dL Protime & INR Collection Time: 01/02/24 4:44 AM Result Value Ref Range Protime 31.9 (H) 9.8 - 13.2 sec Inr 2.8 (H) 0.8 - 1.1 Comprehensive metabolic panel Collection Time: 01/02/24 4:44 AM Result Value Ref Range Sodium 142 134 - 146 mmol/L Potassium, Bld 4.1 3.5 - 5.0 mmol/L Chloride 101 98 - 109 mmol/L CO2 38 (H) 22 - 32 mmol/L Anion gap 3 (L) 5 - 15 mmol/L BUN 33 (H) 5 - 23 mg/dL Creatinine 0.89 0.60 - 1.30 mg/dL Glucose 107 (H) 65 - 99 mg/dL Calcium 7.8 (L) 8.5 - 10.5 mg/dL Total Protein 4.6 (L) 6.0 - 8.0 g/dL Albumin 2.2 (L) 3.2 - 5.3 g/dL Alkaline Phosphatase 260 (H) 39 - 130 U/L AST 58 (H) 0 - 41 U/L ALT 81 (H) 0 - 40 U/L Total bilirubin 0.7 0.3 - 1.2 mg/dL eGFR (CKD-EPI)non-race dependent >90 >59 ml/min/1.73sq.m Magnesium Collection Time: 01/02/24 4:44 AM Result Value Ref Range Magnesium 2.0 1.8 - 2.6 mg/dL CBC auto differential Collection Time: 01/02/24 4:44 AM Result Value Ref Range White Blood Cells 7.8 4.0 - 11.0 X10E9/L RBC count 3.38 (L) 4.10 - 5.70 X10E12/L Hemoglobin 10.6 (L) 13.0 - 17.0 g/dL Hematocrit 31.7 (L) 39 - 49 % MCV 94 80 - 100 fL MCH 31.4 27 - 34 pg MCHC 33.5 32 - 36 g/dL RDW 15.3 (H) 11.5 - 15.0 % Platelets 167 150 - 450 X10E9/L MPV 8.5 7 - 12 fL % neutrophils 73.2 % % lymphocytes 9.3 % % monocytes 10.9 % % eosinophils 6.4 % % Basophils 0.2 % Neutrophils Absolute (A) 5.7 1.5 - 6.6 X10E9/L Lymphocytes Absolute 0.7 (L) 1.0 - 3.5 X10E9/L Monocytes Absolute 0.9 0 - 0.9 X10E9/L Eosinophils Absolute 0.5 (H) 0.0 - 0.4 X10E9/L Basophils Absolute 0.0 0.0 - 0.2 X10E9/L Bedside Glucose *Place/Obtain serum glucose if >500(>600 MRH) per glucometer. Collection Time: 01/02/24 7:19 AM Result Value Ref Range Bedside glucose 109 (H) 65 - 99 mg/dL Radiology No results found. HOSPITAL PROBLEM LIST Principal Problem: Cellulitis Active Problems: Chronic atrial fibrillation ([facility]) Diastolic heart failure ([facility]) Essential hypertension Mixed hyperlipidemia Type 2 diabetes mellitus with obesity ([facility]) Venous ulcer of left lower extremity without varicose veins ([facility]) Venous ulcer of right lower extremity without varicose veins ([facility]) Open wound of both lower extremities Lymphedema ASSESSMENT & PLAN Cellulitis/venous ulcer of bilateral lower extremities/drug rash Vascular surgery reconsulted, Wound care and hyperbaric Medicine following Infectious Disease signed off WBC WNL 12/23 blood cultures x2 negative 12/23 Superficial wound culture showed many mixed Gram-positive and Gram-negative organisms, >25 WBC 10/[address] Kiran PRAlban pain medication & scheduled duloxetine, gabapentin Dressing changes per vascular orders Currently undergoing hyperbaric treatment b.i.d. Unasyn discontinued; no indication for antibiotics Patient may need further debridement of his bilateral lower extremities--vascular reconsulted Continue p.r.n. Benadryl and topical steroid for rash Type 2 diabetes Hemoglobin A1c 7.3 Continue insulin sliding scale Atrial fibrillation/diastolic heart failure/hypertension/hyperlipide tata Cardiology signed off Currently in atrial fibrillation, rate controlled Repeat echo LVEF 55-60 present, mild MR, Mobile echogenic density on posterior leaflet of the mitral valve may be mobile calcific/degenerative disease or vegetation Continue Lasix, Lipitor, Imdur, Lopressor, Coumadin Low suspicion for endocarditis per Cardiology DVT/VTE prophylaxis: SCD's and pharmacologic prophylaxis, warfarin, continue home dose. GI prophylaxis: add pantoprazole. PT/OT to evaluate and treat. DC planning: [facility] PATY Reyes 01/02/2024 9:23 AM [facility] Message rounding KHAI in [place] or page through [employer]. 7PM-7AM ([facility], [facility] Psychiatry and Inpatient Rehab): Page Night KHAI, [phone]. 7PM-7AM ([place], [place], [place], [place] and [facility] Rehab): Page on-call KHAI, . PATY Reyes 01/02/24 1323 I have seen and evaluated the patient, and have reviewed the history above and agree. I have repeated the noland portions of the physical exam and concur with the KHAI findings. I have reviewed all laboratory findings and imaging reports/films. I agree with the plan as noted above Complained of dizziness Low borderline blood pressure- give 1 L fluid bolus. Midodrine added. Decrease it to 30 mg His extremities rash is resolving Dr Delmy Roger MD, MRCP 01/02/2024 6:18 PM NUTRITION ADULT FOLLOW UP NUTRITION ASSESSMENT: Patient History: Brief Clinical Summary: PMH significant for CKD, COPD, CAD, T2DM, HLD, HTN, cholecystectomy. Patient presented from outside hospital for lymphedema with drainage from wounds. Patient with cellulitis. Biochemical Data, Medical Tests, and Procedures: 2/2 OR; debridement of thigh/knee/calf. Labs: Results from last 3 days Lab Units 01/01/24 04412/31/23 0506 12/30/23 0503 SODIUM mmol/L 144 142 143 POTASSIUM mmol/L 4.4 4.3 4.6 CHLORIDE mmol/L 102 103 103 CO2 mmol/L 37* 31 34* BUN mg/dL 38* 37* 34* CREATININE mg/dL 0.94 0.95 1.06 CALCIUM mg/dL 7.8* 7.9* 7.9* ALBUMIN g/dL 2.1* 2.4* 2.2* ALK PHOS U/L 306* 298* 298* ALT U/L 94* 92* 93* AST U/L 81* 66* 81* Results from last 7 days Lab Units 01/01/24 1158 01/01/24 0825 01/01/24 0731 01/01/24 04412/31/23 2150 12/31/23 1812 12/31/23 1524 BEDSIDE GLUCOSE mg/dL 208* 96 92 -- 292* 166* 150* GLUCOSE mg/dL -- -- -- 115* -- -- -- Results from last 3 days Lab Units 01/01/24 0442 12/31/23 0506 12/30/23 0503 WBC X10E9/L 9.8 9.6 8.4 HEMOGLOBIN g/dL 11.5* 12.7* 12.2* HEMATOCRIT % 33.9* 37.5* 36.0* PLATELETS X10E9/L 181 205 159 MCV fL 93 93 93 Results from last 3 days Lab Units 01/01/24 0442 12/31/23 0506 12/30/23 0503 MAGNESIUM mg/dL 2.1 2.1 2.0 Results from last 3 days Lab Units 01/01/24 0442 12/31/23 0506 12/30/23 0503 TOTAL BILIRUBIN mg/dL 0.6 0.7 0.9 Lab Results Component Value Date HGBA1C 7.3 (H) 12/26/2023 Lab Results Component Value Date CHOL 123 (L) 01/28/2023 Lab Results Component Value Date CHDL 3.8 01/28/2023 Lab Results Component Value Date HDL 32 (L) 01/28/2023 Lab Results Component Value Date LDLCALC 62 01/28/2023 Lab Results Component Value Date TRIG 147 01/28/2023 Lab Results Component Value Date VERYLOWLIP 29 01/28/2023 Comments (labs): elevated CO2, elevated BUN, low calcoum, elevated LFTs, hyperglycemia. Medications/ Parenteral: Diabeta, dilaudid, humalog, oxycodone, protonix, coumadin, vitamin E. Current Facility-Administered Medications Medication Dose Route Frequency Provider Last Rate Last Admin acetaminophen (TYLENOL) tablet 650 mg 650 mg oral Q4H PRN PATY Fortune alum-mag hydroxide-simeth (MAALOX) 200-200-20 mg/5 mL suspension 30 mL 30 mL oral PCHSP PATY Fortune atorvastatin (LIPITOR) tablet 80 mg 80 mg oral Daily PATY Schreiber 80 mg at 12/31/23 2148 betamethasone (augmented) (DIPROLENE) 0.05 % cream 1 Application 1 Application topical BID PATY Reyes 1 Application at 01/01/24 0832 dextrose (GLUTOSE) 40 % gel 15 g 15 g oral PRN PATY Fortune dextrose 50 % in water (D50W) 50% solution 25 mL 25 mL intravenous PRN PATY Fortune diphenhydrAMINE (BENADRYL) capsule 25 mg 25 mg oral Q6H PRN PATY Schreiber 25 mg at 01/01/24 1154 DULoxetine (CYMBALTA) DR capsule 60 mg 60 mg oral Daily PATY Schreiber 60 mg at 01/01/24 0832 fluticasone propionate (FLONASE) 50 mcg/actuation nasal spray 2 spray 2 spray each nare Daily PATY Smith 2 spray at 01/01/24 0831 gabapentin (NEURONTIN) capsule 200 mg 200 mg oral TID PATY Schreiber 200 mg at 01/01/24 1444 glucagon HCL injection 1 mg 1 mg intramuscular PRN PATY Fortune glyBURIDE (DIABETA) tablet 2.5 mg 2.5 mg oral Daily with breakfast PATY Schreiber 2.5 mg at 12/31/23 0742 HYDROmorphone (PF) (DILAUDID) injection 1 mg 1 mg intravenous Q3H PRN Seun Joshi MD 1 mg at 01/01/24 0522 insulin lispro (HumaLOG) injection 2-10 Units 2-10 Units subcutaneous TID with meals PATY Fortune 4 Units at 01/01/24 1158 insulin lispro (HumaLOG) injection 2-8 Units 2-8 Units subcutaneous Nightly PATY Fortune 4 Units at 12/31/23 2149 isosorbide mononitrate (IMDUR) 24 hr tablet 60 mg 60 mg oral Daily PATY Schreiber 60 mg at 12/31/232005 magnesium oxide (MAGOX) tablet 400 mg 400 mg oral Daily PRN Francheska Felipe MD 400 mg at 12/29/23 0919 metoprolol tartrate (LOPRESSOR) tablet 100 mg 100 mg oral BID Francheska Felipe MD 100 mg at 12/31/23 2148 midodrine (PROAMATINE) tablet 10 mg 10 mg oral TID PRN PATY Reyes 10 mg at 01/01/24 0805 ondansetron ODT (ZOFRAN ODT) disintegrating tablet 4 mg 4 mg buccal Q6H PRN PATY Fortune oxyCODONE (ROXICODONE) immediate release tablet 5 mg 5 mg oral Q4H PRN Seun Joshi MD Or oxyCODONE (ROXICODONE) immediate release tablet 10 mg 10 mg oral Q4H PRN Seun Joshi MD 10 mg at 01/01/24 1153 pantoprazole (PROTONIX) EC tablet 40 mg 40 mg oral QAM AC PATY Fortune 40 mg at 01/01/24 0522 potassium chloride (K-TAB,KLOR-CON) CR tablet 20-40 mEq 20-40 mEq oral PRN PATY Fortune Or potassium chloride (KAYCIEL) 20 mEq/15 mL solution 20-40 mEq 20-40 mEq oral PRN PATY Fortune sennosides-docusate sodium (SENOKOT-S) 8.6-50 mg 1 tablet 1 tablet oral Q12H PRN PATY Fortune 1 tablet at 12/29/23 1550 sodium chloride 0.9 % flush 3 mL 3 mL intravenous PRN PATY Fortune sodium chloride 0.9 % flush 3 mL 3 mL intravenous Q12H LUZ PATY Fortune 3 mL at 01/01/24 0900 sodium chloride 0.9 % infusion 10 mL/hr intravenous Continuous PRN PATY Fortune Stopped at 12/28/23 1730 sodium hypochlorite (DAKIN'S 1/4 STRENGTH) 0.125 % external solution 1 Application 1 Application topical BID Hansel Carrasco MD 1 Application at 12/31/23 1846 vitamin E (dl, acetate) capsule 400 Units 400 Units oral BID PATY Schreiber 400 Units at 01/01/24 1445 warfarin (COUMADIN) tablet 5 mg 5 mg oral Daily PATY Fortune Nutrition Focused Physical Findings +wounds to BLE. Per RN flowsheets, last BM 12/31; net I/O +360 ml, +3.3 L since admit. Patient denied nausea, vomiting, and chewing and swallowing issues. Skin (per nursing flow sheets): Skin Color: Pale (01/01/24 0800) Skin Temp: Warm; Dry (01/01/24 0800) Wound (per nursing flow sheets): Wound 12/23/23 1 Leg Left;Anterior-Site Assessment: Bleeding; Moist; Painful; [place]; Red (01/01/24 0800) Wound 12/23/23 2 Leg Right;Anterior-Site Assessment: Fragile; Moist; Painful; Red (01/01/24 08) Wound 12/23/23 3 Leg Left;Posterior-Site Assessment: Bleeding; Brown; Moist; Red; Painful (01/01/24 0515) [REMOVED] Wound 12/23/23 4 Leg Right;Lateral-Site Assessment: Unable to assess (surgical dressing in place) (12/27/232134) Wound 12/27/23 Incision Leg Inferior-Site Assessment: Bleeding; Brown; Moist; Painful; Red; Yellow; Exposed tendon (01/01/24 08) Gastrointestinal (per nursing flow sheets): Abdomen Assessment: Nondistended; Rounded; Obese (01/01/24 08) Last BM Date: 12/31/23 (01/01/24 08) Passing Flatus: Yes (12/31/23729) RUQ Bowel Sounds: Present (12/31/23729) LUQ Bowel Sounds: Present (12/31/23729) RLQ Bowel Sounds: Present (12/31/23729) LLQ Bowel Sounds: Present (12/31/23729) GI Symptoms: Constipation (12/30/23 0400) Edema (per nursing flow sheets): RLE Edema: +2 (01/01/24 0800) LLE Edema: +2 (01/01/24 08) Intake/ Output Last 24 hrs: Intake/Output Summary (Last 24 hours) at 01/01/2024 1446 Last data filed at 01/01/2024 0928 Gross per 24 hour Intake 360 ml Output -- Net 360 ml Food/Nutrition Related History: Diet/ Nutrition Order Review: Dietary Orders (From admission, onward) Start Ordered 01/01/24 1445 Adult nutrition supplements Continuous Comments: Ensure Plus High Protein Question Answer Comment Diet Type or Consistency: Regular Texture Select Supplement: Standard House Supplement 8 oz Supplement Frequency: TID 01/01/24144412/27/232121 Adult diet Regular Texture; Consistent Carb 210 grams (1800 kcal) Diet effective now Question Answer Comment Diet Type: Regular Texture Carbohydrate Modifiers: Consistent Carb 210 grams (1800 kcal) 12/27/23212012/27/23 1231 Adult nutrition supplements Continuous Comments: Tono *When diet resumes Question Answer Comment Diet Type or Consistency: Regular Texture Select Supplement: Wound Healing Supplement Frequency: BID 12/27/23 1230 Diet Intakes: Percent Meals Eaten (%): 100 (01/01/24 0928). Patient reported that he does not have much appetite but is making himself eat approximately 50-75% of 3 trays daily. Patient's reduced appetite further reduced by issues receiving meals. Oral Supplemental Intake/ Acceptance: Tono BID and Ensure Plus High Protein BID currently ordered. Patient would like an additional Ensure Plus High Protein shake between meals due to difficulty receiving trays prior to HBO. Patient states he likes the supplements. Nutrition Knowledge/Beliefs/Attitudes: Patient did not have questions at this time. Anthropometrics: Last 3 Weight Readings 12/28/23 0538 12/31/23 0500 01/01/24 0559 Weight: 106.7 kg (235 lb 3.7 oz) 109.4 kg (241 lb 2.9 oz) 109.5 kg (241 lb 6.5 oz) Current Weight: 109.5 kg (2/7, bed scale) Admit Weight: 110.7 kg (2/, Bed Scale) [place] Body Weight: 78.2 kg Percent [place] Body Weight: >100% Weight Changes: Weight loss since admit; beginning to trend upward. Patient reported 40 lb weight loss over 1 month. Body Mass Index: Body mass index is 33.68 kg/m . BMI Category: Obese class 1 (30.00- 34.99) Comparative Standards: Estimated Energy Needs: 4328-7459 kcals daily. Method and weight used: 30-35 kcal/kg IBW (78.2 kg). Estimated Protein Needs: 117-196 grams daily. Method and weight used: 1.5-2.5 g protein/kg IBW. Estimated Fluid Needs: 6286-8095 ml daily. Method weight used: 30-35 ml/kg IBW. Comments: Wound needs. NUTRITION DIAGNOSIS: Intake Diagnosis: Inadequate oral intake (NI 2.1) Ongoing. NUTRITION INTERVENTIONS: Meals & snacks: Encouraged PO intakes. Supplements (medical food, vitamin or mineral): Continue Tono BID to provide 90 kcal, 2.5 grams of protein, and 7 grams of arginine/glutamine per serving. Recommend that it is used BID for a minimum of 2-4 weeks. This will aide in wound healing. Supplements (medical food, vitamin or mineral): Coninue Ensure Plus High Protein; will change to TID (BID with meals, 1x PM snack) to provide 350 kcal and 20 grams of protein per serving. RECOMMENDATIONS: Please record % meals, snacks, and supplements. GOAL(S): Patient to meet estimated calorie and protein needs. NUTRITION MONITORING AND EVALUATION: weight and lab trends, I/Os, appetite, PO intakes, supplement acceptance, wound status, edema status, GI function, POC. RD will continue to follow for duration of admit; will remain available by consult for specific nutrition needs. MOE Ren, KARELY, LD Clinical Dietitian Direct Line Images from the original note were not included. [facility] MEDICINE [facility]OSPITALISTS MD Nadege Brunner, MD Mat Davis, MD Jemima Lewis, MD Bob Ball, MD Francheska Felipe, MD Roger Loja, MD Delmy Roger, MD Jayda Almendraez, ERICKA Ramírez, ERICKA Sidhu, ERICKA Quiñonez, ERICKA De La Rosa, ERICKA Boo, ERICKA Cadena, ERICKA Alexandre, ERICKA Garcia, ERICKA Hagan, ERICKA Monzon, ERICKA Chavis, ERIKCA Cortes, ERICKA Nielson, ERICKA Callaway, ERICKA Wong, ERICKA Maher, TERMITE CONTROL REPRESENTATIVE Bipin Turner, [facility] Hospital Medicine Progress Note Patient: Hipolito Daniels Date of : 1965 Room: B756/ PCP: SYDNEY GRIFFITH DO Admission date: 12/25/2023 10:08 PM Encounter date: 01/01/24 Hospital Day: 8 SUBJECTIVE Chief complaints: No chief complaint on file. Interval History: Status: stable. The patient was seen and evaluated at bedside this afternoon. This morning patient continues to have episodes of hypotension, albumin x1 was ordered as well as midodrine p.r.n. He continues to endorse having bilateral lower extremity pain and itching. He otherwise had no other concerns or complaints today. Review of Systems Constitutional: Positive for fatigue. Negative for chills and fever. HENT: Negative for ear pain and sore throat. Eyes: Negative for pain and visual disturbance. Respiratory: Negative for cough and shortness of breath. Cardiovascular: Positive for leg swelling. Negative for chest pain and palpitations. Gastrointestinal: Negative for abdominal pain and vomiting. Genitourinary: Negative for dysuria and hematuria. Musculoskeletal: Positive for gait problem. Negative for arthralgias and back pain. Skin: Positive for rash and wound. Negative for color change. Itching Neurological: Negative for seizures and syncope. All other systems reviewed and are negative. OBJECTIVE BP 90/56 Pulse 99 Temp 36.6 C (97.9 F) (Oral) Resp 16 Ht 180.3 cm (5' 10.98 ) Wt 109.5 kg (241 lb 6.5 oz) SpO2 91% BMI 33.68 kg/m Temp: [36.2 C (97.2 F)-36.7 C (98 F)] 36.6 C (97.9 F) Pulse: [93-114] 99 Resp: [12-19] 16 BP: (80-97)/(46-72) 90/56 SpO2: [90 %-95 %] 91 % O2 Device: None (Room air) O2 Flow Rate (L/min): [0 L/min] 0 L/min Intake/Output Summary (Last 24 hours) at 01/01/2024 1001 Last data filed at 01/01/2024 0928 Gross per 24 hour Intake 360 ml Output -- Net 360 ml Physical Exam Constitutional: General: He is not in acute distress. Appearance: He is well-developed. HENT: Head: Normocephalic. Right Ear: External ear normal. Left Ear: External ear normal. Nose: Nose normal. Eyes: Conjunctiva/sclera: Conjunctivae normal. Pupils: Pupils are equal, round, and reactive to light. Cardiovascular: Rate and Rhythm: Normal rate. Rhythm irregular. Heart sounds: Normal heart sounds. No murmur heard. Pulmonary: Effort: Pulmonary effort is normal. Breath sounds: Normal breath sounds. No wheezing. Abdominal: General: Bowel sounds are normal. Palpations: Abdomen is soft. There is no mass. Tenderness: There is no abdominal tenderness. Musculoskeletal: General: Normal range of motion. Cervical back: Normal range of motion. Right lower le+ Edema present. Left lower le+ Edema present. Lymphadenopathy: Cervical: No cervical adenopathy. Skin: General: Skin is warm and dry. Findings: Erythema, rash and wound present. Comments: BLL wrapped, noted to have rash on his back and arms Neurological: Mental Status: He is alert. Cranial Nerves: No cranial nerve deficit. Coordination: Coordination normal. Psychiatric: Behavior: Behavior normal. Medications Scheduled: albumin human, 25 g, intravenous, Once atorvastatin, 80 mg, oral, Daily betamethasone (augmented), 1 Application, topical, BID DULoxetine, 60 mg, oral, Daily fluticasone propionate, 2 spray, each nare, Daily gabapentin, 200 mg, oral, TID glyBURIDE, 2.5 mg, oral, Daily with breakfast insulin lispro, 2-10 Units, subcutaneous, TID with meals insulin lispro, 2-8 Units, subcutaneous, Nightly isosorbide mononitrate, 60 mg, oral, Daily metoprolol tartrate, 100 mg, oral, BID pantoprazole, 40 mg, oral, QAM AC sodium chloride, 3 mL, intravenous, Q12H LUZ sodium hypochlorite, 1 Application, topical, BID vitamin E (dl, acetate), 400 Units, oral, BID warfarin, 5 mg, oral, Daily Infusions: sodium chloride 0.9 %, 10 mL/hr, Last Rate: Stopped (12/28/23 1730) As Needed: acetaminophen alum-mag hydroxide-simeth dextrose dextrose 50 % in water (D50W) diphenhydrAMINE glucagon (human recombinant) HYDROmorphone magnesium oxide midodrine ondansetron ODT oxyCODONE OR oxyCODONE potassium chloride OR potassium chloride sennosides-docusate sodium sodium chloride sodium chloride 0.9 % Allergies: Ciprofloxacin, Keflex [cephalexin], Albuterol, Penicillins, Shellfish derived, Unasyn [ampicillin-sulbactam], and Magnesium sulfate Code Status: Full Code Labs Recent Results (from the past 24 hour(s)) Bedside Glucose *Place/Obtain serum glucose if >500(>600 MRH) per glucometer. Collection Time: 12/31/23 11:43 AM Result Value Ref Range Bedside glucose 153 (H) 65 - 99 mg/dL Bedside Glucose *Place/Obtain serum glucose if >500(>600 MRH) per glucometer. Collection Time: 12/31/23 3:24 PM Result Value Ref Range Bedside glucose 150 (H) 65 - 99 mg/dL Bedside Glucose *Place/Obtain serum glucose if >500(>600 MRH) per glucometer. Collection Time: 12/31/23 6:12 PM Result Value Ref Range Bedside glucose 166 (H) 65 - 99 mg/dL Bedside Glucose *Place/Obtain serum glucose if >500(>600 MRH) per glucometer. Collection Time: 12/31/23 9:50 PM Result Value Ref Range Bedside glucose 292 (H) 65 - 99 mg/dL Protime & INR Collection Time: 01/01/24 4:42 AM Result Value Ref Range Protime 27.7 (H) 9.8 - 13.2 sec Inr 2.5 (H) 0.8 - 1.1 Comprehensive metabolic panel Collection Time: 01/01/24 4:42 AM Result Value Ref Range Sodium 144 134 - 146 mmol/L Potassium, Bld 4.4 3.5 - 5.0 mmol/L Chloride 102 98 - 109 mmol/L CO2 37 (H) 22 - 32 mmol/L Anion gap 5 5 - 15 mmol/L BUN 38 (H) 5 - 23 mg/dL Creatinine 0.94 0.60 - 1.30 mg/dL Glucose 115 (H) 65 - 99 mg/dL Calcium 7.8 (L) 8.5 - 10.5 mg/dL Total Protein 4.7 (L) 6.0 - 8.0 g/dL Albumin 2.1 (L) 3.2 - 5.3 g/dL Alkaline Phosphatase 306 (H) 39 - 130 U/L AST 81 (H) 0 - 41 U/L ALT 94 (H) 0 - 40 U/L Total bilirubin 0.6 0.3 - 1.2 mg/dL eGFR (CKD-EPI)non-race dependent >90 >59 ml/min/1.73sq.m Magnesium Collection Time: 01/01/24 4:42 AM Result Value Ref Range Magnesium 2.1 1.8 - 2.6 mg/dL CBC auto differential Collection Time: 01/01/24 4:42 AM Result Value Ref Range White Blood Cells 9.8 4.0 - 11.0 X10E9/L RBC count 3.65 (L) 4.10 - 5.70 X10E12/L Hemoglobin 11.5 (L) 13.0 - 17.0 g/dL Hematocrit 33.9 (L) 39 - 49 % MCV 93 80 - 100 fL MCH 31.6 27 - 34 pg MCHC 34.0 32 - 36 g/dL RDW 15.4 (H) 11.5 - 15.0 % Platelets 181 150 - 450 X10E9/L MPV 8.4 7 - 12 fL % neutrophils 76.1 % % lymphocytes 7.2 % % monocytes 10.7 % % eosinophils 5.6 % % Basophils 0.4 % Neutrophils Absolute (A) 7.4 (H) 1.5 - 6.6 X10E9/L Lymphocytes Absolute 0.7 (L) 1.0 - 3.5 X10E9/L Monocytes Absolute 1.0 (H) 0 - 0.9 X10E9/L Eosinophils Absolute 0.5 (H) 0.0 - 0.4 X10E9/L Basophils Absolute 0.0 0.0 - 0.2 X10E9/L Bedside Glucose *Place/Obtain serum glucose if >500(>600 MRH) per glucometer. Collection Time: 01/01/24 7:31 AM Result Value Ref Range Bedside glucose 92 65 - 99 mg/dL Bedside Glucose *Place/Obtain serum glucose if >500(>600 MRH) per glucometer. Collection Time: 01/01/24 8:25 AM Result Value Ref Range Bedside glucose 96 65 - 99 mg/dL Radiology No results found. HOSPITAL PROBLEM LIST Principal Problem: Cellulitis Active Problems: Chronic atrial fibrillation ([facility]) Diastolic heart failure ([facility]) Essential hypertension Mixed hyperlipidemia Type 2 diabetes mellitus with obesity ([facility]) Venous ulcer of left lower extremity without varicose veins ([facility]) Venous ulcer of right lower extremity without varicose veins ([facility]) Open wound of both lower extremities Lymphedema ASSESSMENT & PLAN Cellulitis/venous ulcer of bilateral lower extremities Vascular surgery reconsulted, Wound care and hyperbaric Medicine following Infectious Disease signed off WBC WNL 12/23 blood cultures x2 negative 12/23 Superficial wound culture showed many mixed Gram-positive and Gram-negative organisms, >25 WBC 10/[address] Kiran PRAlban pain medication & scheduled duloxetine, gabapentin Dressing changes per vascular orders Currently undergoing hyperbaric treatment b.i.d. Unasyn discontinued; no indication for antibiotics--patient has developed rash overnight, this is likely related to antibiotics--continue Benadryl PRN and topical steroid Patient may need further debridement of his bilateral lower extremities--vascular reconsulted Type 2 diabetes Hemoglobin A1c 7.3 Continue insulin sliding scale Atrial fibrillation/diastolic heart failure/hypertension/hyperlipide tata Cardiology signed off Currently in atrial fibrillation, rate controlled Repeat echo LVEF 55-60 present, mild MR, Mobile echogenic density on posterior leaflet of the mitral valve may be mobile calcific/degenerative disease or vegetation Continue Lasix, Lipitor, Imdur, Lopressor, Coumadin Low suspicion for endocarditis per Cardiology DVT/VTE prophylaxis: SCD's and pharmacologic prophylaxis, warfarin, continue home dose. GI prophylaxis: add pantoprazole. PT/OT to evaluate and treat. DC planning: [facility] Jie Alexandre APRN-ERICKA 01/01/2024 10:01 AM [facility]-7[facility] (all facilities): Message rounding KHAI in [employer] or page through [employer]. 7PM-7AM ([facility], [facility] Psychiatry and Inpatient Rehab): Page Night KHAI, [phone]. 7PM-7AM ([place], [place], [place], [place] and [facility] Rehab): Page on-call KHAI, . PATY Reyes 01/01/24 2063 I have seen and evaluated the patient, and have reviewed the history above and agree. I have repeated the [place] portions of the physical exam and concur with the KHAI findings. I have reviewed all laboratory findings and imaging reports/films. I agree with the plan as noted above Dr Delmy Roger MD, MRCP 01/01/2024 7:33 PM Images from the original note were not included. Division of Infectious Diseases -progress Note [facility] - Academic Team 1 During Business Hours: Please use [employer] for communication. After Hours: Please call for our answering service. Patient name: Hipolito Daniels Patient Today's Date and Time: 12/31/2023, 4:03 PM Admission Date: 12/25/2023 Primary Care Physician: SYDNEY GRIFFITH DO Impression and Recommendations:: - bilateral lower extremity cellulitis , soft tissue infection. - bilateral lower extremity venous ulcers. - bacteremia ruled out. - no concern of osteomyelitis. - Penicillin allergy Presented with 3-4 week history of bilateral lower leg wounds, progressive in nature, involving medial and lateral aspects, associated erythema, malodorous drainage, necrotic issues. Blood cultures negative, superficial wound culture showed Gram-positive cocci, Gram-negative rods but no Pseudomonas, staph aureus. Patient received 5 days of vanc and cefepime, and 4 days of Unasyn Would culture polymicrobial SP I&P without surgical cultures, surgical debridement on 12/27. Wound care on board, patient currently receiving HBO treatment. - There is no need for further antibiotic treatment, please discontinue antibiotics. - Patient needs further wound debridement - Continue meticulous wound care, edema management with leg elevation, proper hygiene. - Penicillin allergy added for new onset rash after receiving Unasyn, please continue symptomatic treatment -> hypertension, dyslipidemia, coronary artery disease. -> diabetes mellitus, associated neuropathy, CKD. -> chronic atrial fibrillation, diastolic heart failure. -> obesity, chronic obstructive pulmonary disease. History of Present Illness We appreciate the opportunity to consult on Hipolito Daniels, a 58 y.o.-year-old male who was initially admitted on 12/25/2023. Seen examined at bedside Patient denies any fever, chills. Pain in bilateral lower extremities still there, however very tender to touch. Patient developed rash after receiving vanc, cefepime, and unasyn Patient still has some residual necrotic tissues over bilateral lower extremities. Hemodynamically stable. Past Medical History: Past Medical History: Diagnosis Date Angina pectoris ([facility]) Arthritis Atrial fibrillation ([facility]) Chronic kidney disease kidney stones COPD (chronic obstructive pulmonary disease) ([facility] [place] [place]) Coronary artery disease Dental disease Diabetes mellitus type 2, controlled ([facility] [place] [place]) Hyperlipidemia Hypertension Migraines Myocardial infarction ([facility] [place] [place]) x2 Obesity Pneumonia Rash Shortness of breath Visual impairment glasses Past Surgical History: Past Surgical History: Procedure Laterality Date ABDOMINAL SURGERY complete abdominoplasty APPENDECTOMY CARDIAC CATHETERIZATION LAD stents x2 CARDIAC ELECTROPHYSIOLOGY MAPPING AND ABLATION CHOLECYSTECTOMY EXCISIONAL DEBRIDEMENT LOWER LEGS Bilateral 12/27/2023 Performed by Hardeep Kiran MD at [facility] HERNIA REPAIR KNEE ARTHROSCOPY Bilateral LITHOTRIPSY MANIPULATION SHOULDER Left 06/19/2018 Performed by Jr Kendy Renee DO at [facility] TONSILLECTOMY Medications: ampicillin-sulbactam (UNASYN) IV, 3,000 mg, intravenous, Q6H atorvastatin, 80 mg, oral, Daily DULoxetine, 60 mg, oral, Daily fluticasone propionate, 2 spray, each nare, Daily furosemide, 20 mg, intravenous, Q24H LUZ gabapentin, 200 mg, oral, TID glyBURIDE, 2.5 mg, oral, Daily with breakfast insulin lispro, 2-10 Units, subcutaneous, TID with meals insulin lispro, 2-8 Units, subcutaneous, Nightly isosorbide mononitrate, 60 mg, oral, Daily metoprolol tartrate, 100 mg, oral, BID pantoprazole, 40 mg, oral, QAM AC sodium chloride, 3 mL, intravenous, Q12H LUZ sodium hypochlorite, 1 Application, topical, BID vitamin E (dl, acetate), 400 Units, oral, BID warfarin, 5 mg, oral, Daily Social History: Social History Socioeconomic History Marital status: Spouse name: Not on file Number of children: Not on file Years of education: Not on file Highest education level: Not on file Occupational History Not on file Tobacco Use Smoking status: Every Day Packs/day: 1 Types: Cigarettes Smokeless tobacco: Never Vaping Use Vaping Use: Not on file Substance and Sexual Activity Alcohol use: No Drug use: Yes Frequency: 3.0 times per week Types: Marijuana Comment: as needed for pain Sexual activity: Defer Other Topics Concern Not on file Social History Narrative Not on file Social Determinants of Health Financial Resource Strain: Low Risk (12/23/2023) Overall Financial Resource Strain (CARDIA) Difficulty of Paying Living Expenses: Not hard at all Food Insecurity: Food Insecurity Present (12/23/2023) Hunger Screening Food Insecurity - Worry: Sometimes True Food Insecurity - Inability: Sometimes True Transportation Needs: No Transportation Needs (12/23/2023) PRAPARE - Transportation Lack of Transportation (Medical): No Lack of Transportation (Non-Medical): No Physical Activity: Insufficiently Active (12/23/2023) Exercise Vital Sign Days of Exercise per Week: 2 days Minutes of Exercise per Session: 20 min Stress: No Stress Concern Present (12/23/2023) [place] [employer] - Occupational Stress Questionnaire Feeling of Stress : Only a little Social Connections: Socially Isolated (12/23/2023) Social Connection and Isolation Panel [NHANES] Frequency of Communication with Friends and Family: Three times a week Frequency of Social Gatherings with Friends and Family: Three times a week Attends Jew Services: Never Active Member of Clubs or Organizations: No Attends Club or Organization Meetings: Never Marital Status: Interpersonal Safety: Not At Risk (12/23/2023) Humiliation, Afraid, Rape, and Kick questionnaire Fear of Current or Ex-Partner: No Emotionally Abused: No Physically Abused: No Sexually Abused: No Housing Instability: Low Risk (12/23/2023) Housing Instability Housing Instability: No Family History: Family History Problem Relation Age of Onset Heart disease Mother Diabetes Mother Heart disease Father Heart attack Father Immunization History: Immunization History Administered Date(s) Administered COVID-19, mRNA, LNP-S, PF, 30mcg/0.3mL Dose 03/20/2021, 04/10/2021, 10/12/2021 Influenza, Injectable, Mdck, Preservative Free, Quad 09/08/2018, 01/28/2020 Pneumococcal Conjugate 13-Valent 10/20/2018 Allergies: Allergies Allergen Reactions Ciprofloxacin Hives Keflex [Cephalexin] Hives Albuterol Tachycardia Shellfish Derived Other (See Comments) Chills Magnesium Sulfate pain IV only- Patient reports it feels like someone is putting lava in my veins Review of Systems: General: No fevers or chills. Eyes: No double vision or blurry vision. ENT: No sore throat or runny nose. Cardiovascular: No chest pain or palpitations. Lung: No shortness of breath or cough. Abdomen: No nausea, vomiting, diarrhea, or abdominal pain. Genitourinary: No increased urinary frequency, or dysuria. Musculoskeletal: No muscle aches or pains. Hematologic: No bleeding or bruising. Neurologic: No headache, weakness, numbness, or tingling. Objective Physical Examination: BP 96/52 Pulse 107 Temp 36.6 C (97.9 F) (Oral) Resp 16 Ht 180.3 cm (5' 10.98 ) Wt 109.4 kg (241 lb 2.9 oz) SpO2 92% BMI 33.65 kg/m Temperature Range: Temp: 36.6 C (97.9 F) Temp Av.6 C (97.9 F) Min: 36.4 C (97.5 F) Max: 36.8 C (98.2 F) Constitutional: Awake, alert, and in no apparent distress. Eyes: Sclera anicteric, conjunctivae pink. ENT/Mouth: Oropharynx clear, without erythema, exudate, or thrush. Neck: Supple, without lymphadenopathy. Cardiovascular: Regular rate and rhythm without murmurs, rubs, or gallops. Respiratory: Clear to auscultation, without wheezes, rales, or rhonchi. Gastrointestinal/Abdomen: Soft, non-tender; no masses or hepatosplenomegaly. Musculoskeletal/Extremities:: Bilateral lower extremity cellulitis, erythema, tenderness and foul-smelling malodorous drainage with necrotic tissues. Wrapped in dressing. More detail in Wound Care note. Neurovascular status of lower extremities intact. Labs: Results from last 7 days Lab Units 12/31/23 0506 12/30/23 0503 12/29/23 0513 WBC X10E9/L 9.6 8.4 6.4 HEMOGLOBIN g/dL 12.7* 12.2* 12.2* HEMATOCRIT % 37.5* 36.0* 35.8* MCV fL 93 93 92 PLATELETS X10E9/L 205 159 139* NEUTROS ABS X10E9/L 7.1* 6.6 4.5 LYMPHS ABS AUTO X10E9/L 1.0 0.5* 0.6* MONOS ABS AUTO X10E9/L 0.9 0.9 0.9 EOS ABS AUTO X10E9/L 0.5* 0.4 0.5* BASOS ABS AUTO X10E9/L 0.1 0.0 0.0 Results from last 7 days Lab Units 12/31/23 1524 12/31/23 1143 12/31/23 0708 12/31/23 0506 12/30/23 0843 12/30/23 0503 12/29/23 0758 12/29/23 0513 SODIUM mmol/L -- -- -- 142 -- 143 -- 143 POTASSIUM mmol/L -- -- -- 4.3 -- 4.6 -- 4.2 CHLORIDE mmol/L -- -- -- 103 -- 103 -- 106 CO2 mmol/L -- -- -- 31 -- 34* -- 31 BUN mg/dL -- -- -- 37* -- 34* -- 30* CREATININE mg/dL -- -- -- 0.95 -- 1.06 -- 0.87 BEDSIDE GLUCOSE mg/dL 150* 153* 113* -- < > -- < > -- GLUCOSE mg/dL -- -- -- 114* -- 186* -- 201* CALCIUM mg/dL -- -- -- 7.9* -- 7.9* -- 7.6* ALBUMIN g/dL -- -- -- 2.4* -- 2.2* -- 2.1* ALK PHOS U/L -- -- -- 298* -- 298* -- 192* ALT U/L -- -- -- 92* -- 93* -- 58* AST U/L -- -- -- 66* -- 81* -- 39 < > = values in this interval not displayed. Results from last 7 days Lab Units 12/26/23 1911 SED RATE mm/h 37* CRP mg/dL 14.2* HEMOGLOBIN A1C % 7.3* Invalid input(s): BILIRUBINU Imaging Studies: Cultures: Microbiology Results No results found for the last 168 hours. Thank you for allowing us to participate in the care of this patient. Please call with questions. Marianna Holley PGY1 Internal Medicine Resident [facility] From 7AM-7PM: Please use [employer] for communication. From 7PM-7AM: Please call for our answering service. Associated attestation - Leida Porter MD - 12/31/2023 7:04 PM EST I performed a history and physical examination of the patient Hipolito Daniels, I independently reviewed the laboratory work and imaging as well as other studies mentioned in the above note; I have discussed the management with the resident. I have reviewed the above note, I agree with the findings and plan of care with the following additions: Agree with above - no need for further antibiotics. Penicillin was added to allergy list. Continue HBO, consider further debridement. Thanks so much for the consult, ID will sign off at this time. Please reconsult with any questions or concerns. Thank you for allowing us to participate in the care of this patient. Leida Porter MD, CMQ, [facility] Infectious Diseases Personal Pager: [phone] Images from the original note were not included. [facility] MEDICINE [facility] HOSPITALISTS MD Nadege Brunner, MD Mat Davis, MD Jemima Lewis, MD Bob Ball, MD Francheska Felipe, MD Roger Loja, MD Delmy Roger, MD Jayda Almendarez, ERICKA Ramírez, ERICKA Sidhu, ERICKA Quiñonez, ERICKA De La Rosa, ERICKA Boo, ERICKA Cadena, ERICKA Alexandre, ERICKA Garcia, ERICKA Hagan, ERICKA Monzon, ERICKA Chavis, ERICKA Cortes, ERICKA Nielson, ERICKA Callaway, ERICKA Wong, ERICKA Maher, ERICKA Turner, [facility] Medicine Progress Note Patient: Hipolito Daniels Date of : 1965 Room: [place] [id number] PCP: SYDNEY GRIFFITH DO Admission date: 12/25/2023 10:08 PM Encounter date: 12/31/23 Hospital Day: 7 SUBJECTIVE Chief complaints: No chief complaint on file. Interval History: Status: stable. The patient was seen and evaluated at bedside this afternoon after going to hyperbaric therapy. He continues to endorse having bilateral lower extremity leg pain. Patient reported having a rash develop overnight on his back and arms. He denied having any shortness of breath, palpitations, or chest pain. Review of Systems Constitutional: Positive for fatigue. Negative for chills and fever. HENT: Negative for ear pain and sore throat. Eyes: Negative for pain and visual disturbance. Respiratory: Negative for cough and shortness of breath. Cardiovascular: Positive for leg swelling. Negative for chest pain and palpitations. Gastrointestinal: Negative for abdominal pain and vomiting. Genitourinary: Negative for dysuria and hematuria. Musculoskeletal: Positive for gait problem. Negative for arthralgias and back pain. Skin: Positive for rash and wound. Negative for color change. Neurological: Negative for seizures and syncope. All other systems reviewed and are negative. OBJECTIVE BP 92/48 Pulse 100 Temp 36.4 C (97.5 F) (Oral) Resp 16 Ht 180.3 cm (5' 10.98 ) Wt 109.4 kg (241 lb 2.9 oz) SpO2 92% BMI 33.65 kg/m Temp: [36.3 C (97.3 F)-36.8 C (98.2 F)] 36.4 C (97.5 F) Pulse: [91-120] 100 Resp: [14-16] 16 BP: (91-115)/(44-67) 92/48 SpO2: [90 %-96 %] 92 % O2 Device: None (Room air) Intake/Output Summary (Last 24 hours) at 12/31/2023 0952 Last data filed at 12/31/2023 0730 Gross per 24 hour Intake 360 ml Output -- Net 360 ml Physical Exam Constitutional: General: He is not in acute distress. Appearance: He is well-developed. HENT: Head: Normocephalic. Right Ear: External ear normal. Left Ear: External ear normal. Nose: Nose normal. Eyes: Conjunctiva/sclera: Conjunctivae normal. Pupils: Pupils are equal, round, and reactive to light. Cardiovascular: Rate and Rhythm: Normal rate. Rhythm irregular. Heart sounds: Normal heart sounds. No murmur heard. Pulmonary: Effort: Pulmonary effort is normal. Breath sounds: Normal breath sounds. No wheezing. Abdominal: General: Bowel sounds are normal. Palpations: Abdomen is soft. There is no mass. Tenderness: There is no abdominal tenderness. Musculoskeletal: General: Normal range of motion. Cervical back: Normal range of motion. Right lower le+ Edema present. Left lower le+ Edema present. Lymphadenopathy: Cervical: No cervical adenopathy. Skin: General: Skin is warm and dry. Findings: Erythema, rash and wound present. Comments: BLL wrapped, noted to have rash on his back and arms Neurological: Mental Status: He is alert. Cranial Nerves: No cranial nerve deficit. Coordination: Coordination normal. Psychiatric: Behavior: Behavior normal. Medications Scheduled: ampicillin-sulbactam (UNASYN) IV, 3,000 mg, intravenous, Q6H atorvastatin, 80 mg, oral, Daily DULoxetine, 60 mg, oral, Daily fluticasone propionate, 2 spray, each nare, Daily furosemide, 20 mg, intravenous, Q24H LUZ gabapentin, 200 mg, oral, TID glyBURIDE, 2.5 mg, oral, Daily with breakfast insulin lispro, 2-10 Units, subcutaneous, TID with meals insulin lispro, 2-8 Units, subcutaneous, Nightly isosorbide mononitrate, 60 mg, oral, Daily metoprolol tartrate, 100 mg, oral, BID pantoprazole, 40 mg, oral, QAM AC sodium chloride, 3 mL, intravenous, Q12H LUZ sodium hypochlorite, 1 Application, topical, BID vitamin E (dl, acetate), 400 Units, oral, BID warfarin, 5 mg, oral, Daily Infusions: sodium chloride 0.9 %, 10 mL/hr, Last Rate: Stopped (12/28/23 1730) As Needed: acetaminophen alum-mag hydroxide-simeth dextrose dextrose 50 % in water (D50W) diphenhydrAMINE glucagon (human recombinant) HYDROmorphone magnesium oxide ondansetron ODT oxyCODONE OR oxyCODONE potassium chloride OR potassium chloride sennosides-docusate sodium sodium chloride sodium chloride 0.9 % Allergies: Ciprofloxacin, Keflex [cephalexin], Albuterol, Shellfish derived, and Magnesium sulfate Code Status: Full Code Labs Recent Results (from the past 24 hour(s)) Bedside Glucose *Place/Obtain serum glucose if >500(>600 MRH) per glucometer. Collection Time: 12/30/23 1:00 PM Result Value Ref Range Bedside glucose 176 (H) 65 - 99 mg/dL Bedside Glucose *Place/Obtain serum glucose if >500(>600 MRH) per glucometer. Collection Time: 12/30/23 2:45 PM Result Value Ref Range Bedside glucose 232 (H) 65 - 99 mg/dL Bedside Glucose *Place/Obtain serum glucose if >500(>600 MRH) per glucometer. Collection Time: 12/30/23 6:16 PM Result Value Ref Range Bedside glucose 297 (H) 65 - 99 mg/dL Bedside Glucose *Place/Obtain serum glucose if >500(>600 MRH) per glucometer. Collection Time: 12/30/23 9:04 PM Result Value Ref Range Bedside glucose 190 (H) 65 - 99 mg/dL Protime & INR Collection Time: 12/31/23 5:06 AM Result Value Ref Range Protime 24.4 (H) 9.8 - 13.2 sec Inr 2.2 (H) 0.8 - 1.1 Comprehensive metabolic panel Collection Time: 12/31/23 5:06 AM Result Value Ref Range Sodium 142 134 - 146 mmol/L Potassium, Bld 4.3 3.5 - 5.0 mmol/L Chloride 103 98 - 109 mmol/L CO2 31 22 - 32 mmol/L Anion gap 8 5 - 15 mmol/L BUN 37 (H) 5 - 23 mg/dL Creatinine 0.95 0.60 - 1.30 mg/dL Glucose 114 (H) 65 - 99 mg/dL Calcium 7.9 (L) 8.5 - 10.5 mg/dL Total Protein 5.1 (L) 6.0 - 8.0 g/dL Albumin 2.4 (L) 3.2 - 5.3 g/dL Alkaline Phosphatase 298 (H) 39 - 130 U/L AST 66 (H) 0 - 41 U/L ALT 92 (H) 0 - 40 U/L Total bilirubin 0.7 0.3 - 1.2 mg/dL eGFR (CKD-EPI)non-race dependent >90 >59 ml/min/1.73sq.m Magnesium Collection Time: 12/31/23 5:06 AM Result Value Ref Range Magnesium 2.1 1.8 - 2.6 mg/dL CBC auto differential Collection Time: 12/31/23 5:06 AM Result Value Ref Range White Blood Cells 9.6 4.0 - 11.0 X10E9/L RBC count 4.03 (L) 4.10 - 5.70 X10E12/L Hemoglobin 12.7 (L) 13.0 - 17.0 g/dL Hematocrit 37.5 (L) 39 - 49 % MCV 93 80 - 100 fL MCH 31.4 27 - 34 pg MCHC 33.8 32 - 36 g/dL RDW 14.9 11.5 - 15.0 % Platelets 205 150 - 450 X10E9/L MPV 8.4 7 - 12 fL % neutrophils 73.4 % % lymphocytes 10.9 % % monocytes 9.6 % % eosinophils 5.3 % % Basophils 0.8 % Neutrophils Absolute (A) 7.1 (H) 1.5 - 6.6 X10E9/L Lymphocytes Absolute 1.0 1.0 - 3.5 X10E9/L Monocytes Absolute 0.9 0 - 0.9 X10E9/L Eosinophils Absolute 0.5 (H) 0.0 - 0.4 X10E9/L Basophils Absolute 0.1 0.0 - 0.2 X10E9/L Bedside Glucose *Place/Obtain serum glucose if >500(>600 MRH) per glucometer. Collection Time: 12/31/23 7:08 AM Result Value Ref Range Bedside glucose 113 (H) 65 - 99 mg/dL Radiology No results found. HOSPITAL PROBLEM LIST Principal Problem: Cellulitis Active Problems: Chronic atrial fibrillation ([facility]) Diastolic heart failure ([facility] [place] [place]) Essential hypertension Mixed hyperlipidemia Type 2 diabetes mellitus with obesity ([facility] [place] [place]) Venous ulcer of left lower extremity without varicose veins ([facility] [place] [place]) Venous ulcer of right lower extremity without varicose veins ([facility] [place] [place]) Open wound of both lower extremities Lymphedema ASSESSMENT & PLAN Cellulitis/venous ulcer of bilateral lower extremities Vascular surgery, Wound care and hyperbaric Medicine, and Infectious Disease consulted WBC WNL 12/23 blood cultures x2 negative 12/23 Superficial wound culture showed many mixed Gram-positive and Gram-negative organisms, >25 WBC 10/[address] Kiran PRN pain medication & scheduled duloxetine, gabapentin Dressing changes per vascular orders- please premedicate prior to dressing changes We will defer need for further cardiac imaging to infectious disease/vascular surgery Unasyn discontinued; no indication for antibiotics--patient has developed rash overnight, this is likely related to antibiotics--continue Benadryl PRN and topical steroid Type 2 diabetes Hemoglobin A1c 7.3 Continue insulin sliding scale Atrial fibrillation/diastolic heart failure/hypertension/hyperlipide tata Cardiology signed off Currently in atrial fibrillation, rate controlled Repeat echo obtained prior to hyperbaric oxygen therapy- showed LVEF 55-60 present, mild MR, Mobile echogenic density on posterior leaflet of the mitral valve may be mobile calcific/degenerative disease or vegetation Continue Lasix, Lipitor, Imdur, Lopressor, Coumadin Low suspicion for endocarditis per Cardiology DVT/VTE prophylaxis: SCD's and pharmacologic prophylaxis, warfarin, continue home dose. GI prophylaxis: add pantoprazole. PT/OT to evaluate and treat. DC planning: [facility] Jie Alexandre APRN-TERMITE CONTROL REPRESENTATIVE 12/31/2023 9:52 AM [facility] 7[facility]-7PM (all facilities): Message rounding KHAI in [employer] or page through [employer]. 7PM-7AM ([facility], [facility] Psychiatry and Inpatient Rehab): Page Night KHAI, [phone]. 7PM-7AM ([place], [place], [place], [place] and [facility] Rehab): Page on-call KHAI, . Jie Alexandre APRN-TERMITE CONTROL REPRESENTATIVE 12/31/23 1208 I have seen and evaluated the patient, and have reviewed the history above and agree. I have repeated the noland portions of the physical exam and concur with the KHAI findings. I have reviewed all laboratory findings and imaging reports/films. I agree with the plan as noted above ID recommended further wound debridement Dr Delmy Roger MD, MRCP 12/31/2023 7:11 PM Images from the original note were not included. KHAI Wound Care Service Line - Progress Note Date of Admission: 12/25/2023 10:08 PM Patient: Hipolito Daniels a 58 y.o. male Subjective: Follow up on wound(s) located on the bilateral lower extremities. Current wound care regimen includes Dakins. Patient underwent excisional debridement of BLE wounds in the OR on 12/[address] Kiran. He is scheduled to start HBO therapy today. Vitals: Vitals: 12/30/23 1248 BP: 104/62 Pulse: 114 Resp: 16 Temp: 36.3 C (97.3 F) SpO2: 90% I/O last 3 completed shifts: In: 1090 [P.O.:690; IV Piggyback:400] Out: - No intake/output data recorded. Pain: Patient reports moderate to severe pain of BLE, especially with dressing changes Patient Active Problem List Diagnosis Chronic atrial fibrillation ([facility]) Cellulitis, unspecified cellulitis site Diastolic heart failure ([facility]) Essential hypertension Mixed hyperlipidemia Type 2 diabetes mellitus with obesity ([facility]) Cellulitis Venous ulcer of left lower extremity without varicose veins ([facility]-HCC) Venous ulcer of right lower extremity without varicose veins ([facility]) Open wound of both lower extremities Lymphedema Objective: Physical Exam: BP 104/62 Pulse 114 Temp 36.3 C (97.3 F) (Oral) Resp 16 Ht 180.3 cm (5' 10.98 ) Wt 106.7 kg (235 lb 3.7 oz) SpO2 90% BMI 32.82 kg/m General: Alert, NAD Lungs: pulmonary effort non labored CV: Tachycardic Abdomen: Soft Extremities: warm to touch, motor function grossly intact, bilateral lower leg wounds s/p debridement- see wound assessment. Skin: See wound assessment Wound Assessment: Bilateral lower legs Right anterior calf wounds 25.5cm x circumferential Right foot and ankle scattered blisters Left anterior calf 17cm x circumferential Right posterior calf 25cm x circumferential x 1.2cm Left posterior calf 21.5cm x circumferential x 1.1cm Location: left and right lower legs Type of Wound/Etiology/Severity: non-pressure /venous ulcers / present on admissionmuscle/fascia/tendon Measurement: as above Undermining/tunneling: none Drainage/Exudate/Odor: moderate serosanguineous no odor Wound bed: slough, granulation, and necrotic Wound Edges: attached Periwound: edema Measurable Improvement: first assessment s/p debridement Studies Reviewed: Labs Reviewed: Results from last 7 days Lab Units 12/30/23 0503 12/29/23 0512/28/23 0502 12/27/23 0505 12/26/23 0425 WBC X10E9/L 8.4 6.4 8.4 10.6 9.3 HEMOGLOBIN g/dL 12.2* 12.2* 13.6 13.5 14.0 HEMATOCRIT % 36.0* 35.8* 40.7 39.9 41.1 PLATELETS X10E9/L 159 139* 172 172 139* Results from last 7 days Lab Units 12/30/23 0843 12/30/23 0503 12/29/23 2101 12/29/23 1820 12/29/23 1156 12/29/23 0758 12/29/23 0512/28/23 0646 12/28/23 05012/27/23 07512/27/23 0505 12/26/23 0747 12/26/23 0425 POTASSIUM mmol/L -- 4.6 -- -- -- -- 4.2 -- 4.3 -- 4.2 -- 5.2* CO2 mmol/L -- 34* -- -- -- -- 31 -- 28 -- 25 -- 24 BUN mg/dL -- 34* -- -- -- -- 30* -- 24* -- 28* -- 36* CREATININE mg/dL -- 1.06 -- -- -- -- 0.87 -- 0.86 -- 0.94 -- 0.81 BEDSIDE GLUCOSE mg/dL 116* -- 216* 151* 144* < > -- < > -- < > -- < > -- GLUCOSE mg/dL -- 186* -- -- -- -- 201* -- 157* -- 112* -- 139* < > = values in this interval not displayed. Results from last 7 days Lab Units 12/30/23 05012/29/23 0512/28/23 05012/27/23 05012/26/23 0425 INR 2.1* 2.1* 1.9* 1.6* 2.0* PROTIME sec 23.6* 23.5* 21.4* 18.7* 22.2* Pathology/Cytology Results No results found for the last 168 hours. Microbiology Results No results found for the last 168 hours. Medications: ampicillin-sulbactam (UNASYN) IV, 3,000 mg, intravenous, Q6H atorvastatin, 80 mg, oral, Daily DULoxetine, 60 mg, oral, Daily fluticasone propionate, 2 spray, each nare, Daily furosemide, 20 mg, intravenous, Q24H LUZ gabapentin, 200 mg, oral, TID glyBURIDE, 2.5 mg, oral, Daily with breakfast insulin lispro, 2-10 Units, subcutaneous, TID with meals insulin lispro, 2-8 Units, subcutaneous, Nightly isosorbide mononitrate, 60 mg, oral, Daily metoprolol tartrate, 100 mg, oral, BID pantoprazole, 40 mg, oral, QAM AC sodium chloride, 3 mL, intravenous, Q12H LUZ sodium hypochlorite, 1 Application, topical, BID vitamin E (dl, acetate), 400 Units, oral, BID warfarin, 5 mg, oral, Daily sodium chloride 0.9 %, 10 mL/hr, Last Rate: Stopped (12/28/23 1730) Imaging Reviewed: Echo complete W/O contrast Result Date: 12/27/2023 Left Ventricle: Systolic function is normal with an ejection fraction of 55-60%. Aortic Valve: There is no regurgitation or stenosis. Mitral Valve: There is mild regurgitation. There is no significant mitral valve stenosis. Mobile echogenic density on posterior leaflet of the mitral valve may be mobile calcific/degenerative disease or vegetation. further evaluation with EDITH would be helpful if clinically indicated. Vas art duplex lwr bilateral Result Date: 12/25/2023 Right: Non-visualization of the posterior tibial, anterior tibial and peroneal arteries due to extensive wounds and bandage material. External iliac through SFA plaque with multiphasic waveforms and diastolic flow reversal or hyperemic flow that varies with heart rate. Left: Non-visualization of the posterior tibial, anterior tibial and peroneal arteries due to extensive wounds and bandage material. External iliac through SFA plaque with multiphasic waveforms and diastolic flow reversal or hyperemic flow that varies with heart rate. General: In-patient, bedside examination. Conclusions: BILATERAL:Normal lower extremity arterial duplex examination.Limited visualization of the lower extremity for the outflow arteries at the infra popliteal level, please see the text Assessment/Diagnoses: Principal Problem: Cellulitis Active Problems: Chronic atrial fibrillation ([facility]) Diastolic heart failure ([facility]) Essential hypertension Mixed hyperlipidemia Type 2 diabetes mellitus with obesity ([facility]) Venous ulcer of left lower extremity without varicose veins ([facility]) Venous ulcer of right lower extremity without varicose veins ([facility]) Open wound of both lower extremities Lymphedema Plan: Dressing: Updated current wound care orders: Bilateral lower extremity wounds: -In Morning: Saline soaked 4x4 to wounds, cover with ABD pads, wrap in kerlix. Patient starts HBO treatment today (12/30/23)- NO vaseline, NO Dakins in mornings. -In evening (after HBO treatment): Dakins 0.125% soaked 4x4 to wounds, cover with ABD pads, wrap in kerlix. Offloading/Skin Care/Edema Management: - continue specialty bed JOSUE/pressure redistribution - turn and reposition minimally every 2 hours - pad and protect bony prominences - moisturize dry skin, do not massage vigorously - elevate bilateral lower extremity/ies and float heel(s) on pillows or offloading boots - elevate upper extremities on pillows Antibiotics: per ID Studies/Testing: as above Medical Management: per primary service Will continue to follow patient's wound(s) while inpatient. Please feel free to call us with any questions or concerns regarding patient's plan of care. MALENA JOHNSON PA-C 12/30/23 [facility] [id number] Secure Chat or Page [phone] Malena Jonhson PA-C 12/30/23 3635 Malena Johnson PA-C 12/30/23 1322 Images from the original note were not included. Division of Infectious Diseases -progress Note [facility] - Academic Team 1 During Business Hours: Please use [employer] for communication. After Hours: Please call for our answering service. Patient name: Hipolito Daniels Patient Today's Date and Time: 12/30/2023, 11:14 AM Admission Date: 12/25/2023 Primary Care Physician: SYDNEY GRIFFITH DO Impression and Recommendations:: - bilateral lower extremity cellulitis , soft tissue infection. - bilateral lower extremity venous ulcers. - bacteremia ruled out. - no concern of osteomyelitis. Presented with 3-4 week history of bilateral lower leg wounds, progressive in nature, involving medial and lateral aspects, associated erythema, malodorous drainage, necrotic issues. Blood cultures negative, superficial wound culture showed Gram-positive cocci, Gram-negative rods but no Pseudomonas, staph aureus. Patient received 5 days of vanc and cefepime, and 4 days of Unasyn Would culture polymicrobial SP I&P without surgical cultures, surgical debridement on 12/27. Patient is currently on Unasyn (day 4) Wound care on board, patient currently receiving HBO treatment. - There is no need for further antibiotic treatment, we can stop that. - Patient needs further wound debridement - Continue meticulous wound care, edema management with leg elevation, proper hygiene. -> hypertension, dyslipidemia, coronary artery disease. -> diabetes mellitus, associated neuropathy, CKD. -> chronic atrial fibrillation, diastolic heart failure. -> obesity, chronic obstructive pulmonary disease. History of Present Illness We appreciate the opportunity to consult on Hipolito Daniels, a 58 y.o.-year-old male who was initially admitted on 12/25/2023. Seen examined at bedside Status post debridement on 12/27 by vascular surgery, left lower extremity Patient denies any fever, chills. Pain in bilateral lower extremities improving, however very tender to touch. Tolerating IV antibiotics. Patient still has some residual necrotic tissues over bilateral lower extremities. Hemodynamically stable. Past Medical History: Past Medical History: Diagnosis Date Angina pectoris ([facility]) Arthritis Atrial fibrillation ([facility]) Chronic kidney disease kidney stones COPD (chronic obstructive pulmonary disease) ([facility] [place] [place]) Coronary artery disease Dental disease Diabetes mellitus type 2, controlled ([facility]) Hyperlipidemia Hypertension Migraines Myocardial infarction ([facility]) x2 Obesity Pneumonia Rash Shortness of breath Visual impairment glasses Past Surgical History: Past Surgical History: Procedure Laterality Date ABDOMINAL SURGERY complete abdominoplasty APPENDECTOMY CARDIAC CATHETERIZATION LAD stents x2 CARDIAC ELECTROPHYSIOLOGY MAPPING AND ABLATION CHOLECYSTECTOMY EXCISIONAL DEBRIDEMENT LOWER LEGS Bilateral 12/27/2023 Performed by Hardeep Kiran MD at [facility] HERNIA REPAIR KNEE ARTHROSCOPY Bilateral LITHOTRIPSY MANIPULATION SHOULDER Left 06/19/2018 Performed by Jr Kendy Renee DO at [facility] TONSILLECTOMY Medications: ampicillin-sulbactam (UNASYN) IV, 3,000 mg, intravenous, Q6H atorvastatin, 80 mg, oral, Daily DULoxetine, 60 mg, oral, Daily furosemide, 20 mg, intravenous, Q24H LUZ gabapentin, 200 mg, oral, TID glyBURIDE, 2.5 mg, oral, Daily with breakfast insulin lispro, 2-10 Units, subcutaneous, TID with meals insulin lispro, 2-8 Units, subcutaneous, Nightly isosorbide mononitrate, 60 mg, oral, Daily metoprolol tartrate, 100 mg, oral, BID pantoprazole, 40 mg, oral, QAM AC sodium chloride, 3 mL, intravenous, Q12H LUZ sodium hypochlorite, 1 Application, topical, BID vitamin E (dl, acetate), 400 Units, oral, BID warfarin, 5 mg, oral, Daily Social History: Social History Socioeconomic History Marital status: Spouse name: Not on file Number of children: Not on file Years of education: Not on file Highest education level: Not on file Occupational History Not on file Tobacco Use Smoking status: Every Day Packs/day: 1 Types: Cigarettes Smokeless tobacco: Never Vaping Use Vaping Use: Not on file Substance and Sexual Activity Alcohol use: No Drug use: Yes Frequency: 3.0 times per week Types: Marijuana Comment: as needed for pain Sexual activity: Defer Other Topics Concern Not on file Social History Narrative Not on file Social Determinants of Health Financial Resource Strain: Low Risk (12/23/2023) Overall Financial Resource Strain (CARDIA) Difficulty of Paying Living Expenses: Not hard at all Food Insecurity: Food Insecurity Present (12/23/2023) Hunger Screening Food Insecurity - Worry: Sometimes True Food Insecurity - Inability: Sometimes True Transportation Needs: No Transportation Needs (12/23/2023) PRAPARE - Transportation Lack of Transportation (Medical): No Lack of Transportation (Non-Medical): No Physical Activity: Insufficiently Active (12/23/2023) Exercise Vital Sign Days of Exercise per Week: 2 days Minutes of Exercise per Session: 20 min Stress: No Stress Concern Present (12/23/2023) [place] [employer] - Occupational Stress Questionnaire Feeling of Stress : Only a little Social Connections: Socially Isolated (12/23/2023) Social Connection and Isolation Panel [NHANES] Frequency of Communication with Friends and Family: Three times a week Frequency of Social Gatherings with Friends and Family: Three times a week Attends Jew Services: Never Active Member of Clubs or Organizations: No Attends Club or Organization Meetings: Never Marital Status: Interpersonal Safety: Not At Risk (12/23/2023) Humiliation, Afraid, Rape, and Kick questionnaire Fear of Current or Ex-Partner: No Emotionally Abused: No Physically Abused: No Sexually Abused: No Housing Instability: Low Risk (12/23/2023) Housing Instability Housing Instability: No Family History: Family History Problem Relation Age of Onset Heart disease Mother Diabetes Mother Heart disease Father Heart attack Father Immunization History: Immunization History Administered Date(s) Administered COVID-19, mRNA, LNP-S, PF, 30mcg/0.3mL Dose 03/20/2021, 04/10/2021, 10/12/2021 Influenza, Injectable, Mdck, Preservative Free, Quad 09/08/2018, 01/28/2020 Pneumococcal Conjugate 13-Valent 10/20/2018 Allergies: Allergies Allergen Reactions Ciprofloxacin Hives Keflex [Cephalexin] Hives Albuterol Tachycardia Shellfish Derived Other (See Comments) Chills Magnesium Sulfate pain IV only- Patient reports it feels like someone is putting lava in my veins Review of Systems: General: No fevers or chills. Eyes: No double vision or blurry vision. ENT: No sore throat or runny nose. Cardiovascular: No chest pain or palpitations. Lung: No shortness of breath or cough. Abdomen: No nausea, vomiting, diarrhea, or abdominal pain. Genitourinary: No increased urinary frequency, or dysuria. Musculoskeletal: No muscle aches or pains. Hematologic: No bleeding or bruising. Neurologic: No headache, weakness, numbness, or tingling. Objective Physical Examination: BP 101/69 Pulse 103 Temp 36.7 C (98 F) (Oral) Resp 17 Ht 180.3 cm (5' 10.98 ) Wt 106.7 kg (235 lb 3.7 oz) SpO2 91% BMI 32.82 kg/m Temperature Range: Temp: 36.7 C (98 F) Temp Av.6 C (97.8 F) Min: 36.2 C (97.1 F) Max: 36.8 C (98.2 F) Constitutional: Awake, alert, and in no apparent distress. Eyes: Sclera anicteric, conjunctivae pink. ENT/Mouth: Oropharynx clear, without erythema, exudate, or thrush. Neck: Supple, without lymphadenopathy. Cardiovascular: Regular rate and rhythm without murmurs, rubs, or gallops. Respiratory: Clear to auscultation, without wheezes, rales, or rhonchi. Gastrointestinal/Abdomen: Soft, non-tender; no masses or hepatosplenomegaly. Musculoskeletal/Extremities:: Bilateral lower extremity cellulitis, erythema, tenderness and foul-smelling malodorous drainage with necrotic tissues. Wrapped in dressing. More detail in Wound Care note. Neurovascular status of lower extremities intact. Labs: Results from last 7 days Lab Units 12/30/23 0503 12/29/23 0513 12/28/23 0502 WBC X10E9/L 8.4 6.4 8.4 HEMOGLOBIN g/dL 12.2* 12.2* 13.6 HEMATOCRIT % 36.0* 35.8* 40.7 MCV fL 93 92 93 PLATELETS X10E9/L 159 139* 172 NEUTROS ABS X10E9/L 6.6 4.5 6.6 LYMPHS ABS AUTO X10E9/L 0.5* 0.6* 0.5* MONOS ABS AUTO X10E9/L 0.9 0.9 0.9 EOS ABS AUTO X10E9/L 0.4 0.5* 0.4 BASOS ABS AUTO X10E9/L 0.0 0.0 0.0 Results from last 7 days Lab Units 12/30/23 0843 12/30/23 0503 12/29/23 2101 12/29/23 0758 12/29/23 0513 12/28/23 0646 12/28/23 0502 SODIUM mmol/L -- 143 -- -- 143 -- 142 POTASSIUM mmol/L -- 4.6 -- -- 4.2 -- 4.3 CHLORIDE mmol/L -- 103 -- -- 106 -- 106 CO2 mmol/L -- 34* -- -- 31 -- 28 BUN mg/dL -- 34* -- -- 30* -- 24* CREATININE mg/dL -- 1.06 -- -- 0.87 -- 0.86 BEDSIDE GLUCOSE mg/dL 116* -- 216* < > -- < > -- GLUCOSE mg/dL -- 186* -- -- 201* -- 157* CALCIUM mg/dL -- 7.9* -- -- 7.6* -- 7.9* ALBUMIN g/dL -- 2.2* -- -- 2.1* -- 2.2* ALK PHOS U/L -- 298* -- -- 192* -- 221* ALT U/L -- 93* -- -- 58* -- 68* AST U/L -- 81* -- -- 39 -- 51* < > = values in this interval not displayed. Results from last 7 days Lab Units 12/26/23 1911 SED RATE mm/h 37* CRP mg/dL 14.2* HEMOGLOBIN A1C % 7.3* Results from last 7 days Lab Units 12/23/23 1755 COLOR YELLOW TURBIDITY CLEAR SPECIFIC GRAVITY 1.015 NITRITE Negative PH URINE 6.0 LEUKOCYTE ESTERASE Negative PROTEIN mg/dL Negative KETONES (URINE) mg/dL Negative UROBILINOGEN eu/dL 0.2 BLDHGB Negative Imaging Studies: I have personally reviewed this study. Cultures: Microbiology Results No results found for the last 168 hours. Thank you for allowing us to participate in the care of this patient. Please call with questions. Marianna Holley PGY1 Internal Medicine Resident [facility] From 7AM-7PM: Please use [employer] for communication. From 7PM-7AM: Please call for our answering service. Associated attestation - Leida Porter MD - 12/31/2023 7:01 PM EST Patient was out of the room during rounds, but I discussed with Dr. Holley and I agree with the assessment and plan as above. Leida Porter MD, CMQ, [facility] Infectious Diseases Personal Pager: [phone] Images from the original note were not included. [facility] MEDICINE [facility] HOSPITALISTS MD Nadege Brunner, MD Mta Davis, MD Jemima Lewis, MD Bob Ball, MD Francheska Felipe, MD Roger Loja, MD Delmy Roger, MD Jayda Almendarez, TERMITE CONTROL REPRESENTATIVE Susan Darrell, TERMITE CONTROL REPRESENTATIVE Sushila Sidhu, TERMITE CONTROL REPRESENTATIVE Meche Olamide, [facility] Nilda De La Rosa, [facility] Antonina Ema, TERMITE CONTROL REPRESENTATIVE Arely Cadena, TERMITE CONTROL REPRESENTATIVE Jie Alexandre, TERMITE CONTROL REPRESENTATIVE Con Garcia, TERMITE CONTROL REPRESENTATIVE Annalisa Hagan, TERMITE CONTROL REPRESENTATIVE Sushma Monzon, [facility] Jocelynn Chavis, [facility] Yanet Cortes, [facility] Carole Nielson, [facility] Kayce Callaway, [facility] Sushma Wong, [facility] Thalia Maher, [facility] Bipin Turner, [facility] Medicine Progress Note Patient: Hipolito Daniels Date of : 1965 Room: [id number] PCP: SYDNEY GRIFFITH DO Admission date: 12/25/2023 10:08 PM Encounter date: 12/30/23 Hospital Day: 6 SUBJECTIVE Chief complaints: No chief complaint on file. Interval History: Status: stable. No overnight events or new complaints. The patient was seen evaluated at bedside this morning. He continues to endorse having bilateral lower extremity pain. Patient also endorse feeling very fatigued today. Planning to go to hyperbaric medicine this afternoon. He otherwise had no other concerns or complaints. Review of Systems Constitutional: Positive for fatigue. Negative for chills and fever. HENT: Negative for ear pain and sore throat. Eyes: Negative for pain and visual disturbance. Respiratory: Negative for cough and shortness of breath. Cardiovascular: Positive for leg swelling. Negative for chest pain and palpitations. Gastrointestinal: Negative for abdominal pain and vomiting. Genitourinary: Negative for dysuria and hematuria. Musculoskeletal: Positive for gait problem. Negative for arthralgias and back pain. Skin: Positive for wound. Negative for color change and rash. Neurological: Negative for seizures and syncope. All other systems reviewed and are negative. OBJECTIVE BP 101/69 Pulse 103 Temp 36.7 C (98 F) (Oral) Resp 17 Ht 180.3 cm (5' 10.98 ) Wt 106.7 kg (235 lb 3.7 oz) SpO2 91% BMI 32.82 kg/m Temp: [36.2 C (97.1 F)-36.8 C (98.2 F)] 36.7 C (98 F) Pulse: [103-118] 103 Resp: [16-18] 17 BP: (90-111)/(58-71) 101/69 SpO2: [91 %-93 %] 91 % O2 Device: None (Room air) Intake/Output Summary (Last 24 hours) at 12/30/2023 1025 Last data filed at 12/29/2023 1800 Gross per 24 hour Intake 400 ml Output -- Net 400 ml Physical Exam Constitutional: General: He is not in acute distress. Appearance: He is well-developed. HENT: Head: Normocephalic. Right Ear: External ear normal. Left Ear: External ear normal. Nose: Nose normal. Eyes: Conjunctiva/sclera: Conjunctivae normal. Pupils: Pupils are equal, round, and reactive to light. Cardiovascular: Rate and Rhythm: Normal rate. Rhythm irregular. Heart sounds: Normal heart sounds. No murmur heard. Pulmonary: Effort: Pulmonary effort is normal. Breath sounds: Normal breath sounds. No wheezing. Abdominal: General: Bowel sounds are normal. Palpations: Abdomen is soft. There is no mass. Tenderness: There is no abdominal tenderness. Musculoskeletal: General: Normal range of motion. Cervical back: Normal range of motion. Right lower le+ Edema present. Left lower le+ Edema present. Lymphadenopathy: Cervical: No cervical adenopathy. Skin: General: Skin is warm and dry. Findings: Erythema and wound present. No rash. Comments: BLL wrapped Neurological: Mental Status: He is alert. Cranial Nerves: No cranial nerve deficit. Coordination: Coordination normal. Psychiatric: Behavior: Behavior normal. Medications Scheduled: ampicillin-sulbactam (UNASYN) IV, 3,000 mg, intravenous, Q6H atorvastatin, 80 mg, oral, Daily DULoxetine, 60 mg, oral, Daily furosemide, 20 mg, intravenous, Q24H LUZ gabapentin, 200 mg, oral, TID glyBURIDE, 2.5 mg, oral, Daily with breakfast insulin lispro, 2-10 Units, subcutaneous, TID with meals insulin lispro, 2-8 Units, subcutaneous, Nightly isosorbide mononitrate, 60 mg, oral, Daily metoprolol tartrate, 100 mg, oral, BID pantoprazole, 40 mg, oral, QAM AC sodium chloride, 3 mL, intravenous, Q12H LUZ sodium hypochlorite, 1 Application, topical, BID vitamin E (dl, acetate), 400 Units, oral, BID warfarin, 5 mg, oral, Daily Infusions: sodium chloride 0.9 %, 10 mL/hr, Last Rate: Stopped (12/28/23 1730) As Needed: acetaminophen alum-mag hydroxide-simeth dextrose dextrose 50 % in water (D50W) diphenhydrAMINE glucagon (human recombinant) HYDROmorphone magnesium oxide ondansetron ODT oxyCODONE OR oxyCODONE potassium chloride OR potassium chloride sennosides-docusate sodium sodium chloride sodium chloride 0.9 % Allergies: Ciprofloxacin, Keflex [cephalexin], Albuterol, Shellfish derived, and Magnesium sulfate Code Status: Full Code Labs Recent Results (from the past 24 hour(s)) Bedside Glucose *Place/Obtain serum glucose if >500(>600 MRH) per glucometer. Collection Time: 12/29/23 11:56 AM Result Value Ref Range Bedside glucose 144 (H) 65 - 99 mg/dL Bedside Glucose *Place/Obtain serum glucose if >500(>600 MRH) per glucometer. Collection Time: 12/29/23 6:20 PM Result Value Ref Range Bedside glucose 151 (H) 65 - 99 mg/dL Bedside Glucose *Place/Obtain serum glucose if >500(>600 MRH) per glucometer. Collection Time: 12/29/23 9:01 PM Result Value Ref Range Bedside glucose 216 (H) 65 - 99 mg/dL Protime & INR Collection Time: 12/30/23 5:03 AM Result Value Ref Range Protime 23.6 (H) 9.8 - 13.2 sec Inr 2.1 (H) 0.8 - 1.1 Comprehensive metabolic panel Collection Time: 12/30/23 5:03 AM Result Value Ref Range Sodium 143 134 - 146 mmol/L Potassium, Bld 4.6 3.5 - 5.0 mmol/L Chloride 103 98 - 109 mmol/L CO2 34 (H) 22 - 32 mmol/L Anion gap 6 5 - 15 mmol/L BUN 34 (H) 5 - 23 mg/dL Creatinine 1.06 0.60 - 1.30 mg/dL Glucose 186 (H) 65 - 99 mg/dL Calcium 7.9 (L) 8.5 - 10.5 mg/dL Total Protein 4.7 (L) 6.0 - 8.0 g/dL Albumin 2.2 (L) 3.2 - 5.3 g/dL Alkaline Phosphatase 298 (H) 39 - 130 U/L AST 81 (H) 0 - 41 U/L ALT 93 (H) 0 - 40 U/L Total bilirubin 0.9 0.3 - 1.2 mg/dL eGFR (CKD-EPI)non-race dependent 81 >59 ml/min/1.73sq.m Magnesium Collection Time: 12/30/23 5:03 AM Result Value Ref Range Magnesium 2.0 1.8 - 2.6 mg/dL CBC auto differential Collection Time: 12/30/23 5:03 AM Result Value Ref Range White Blood Cells 8.4 4.0 - 11.0 X10E9/L RBC count 3.88 (L) 4.10 - 5.70 X10E12/L Hemoglobin 12.2 (L) 13.0 - 17.0 g/dL Hematocrit 36.0 (L) 39 - 49 % MCV 93 80 - 100 fL MCH 31.5 27 - 34 pg MCHC 33.9 32 - 36 g/dL RDW 14.7 11.5 - 15.0 % Platelets 159 150 - 450 X10E9/L MPV 8.4 7 - 12 fL % neutrophils 78.2 % % lymphocytes 6.3 % % monocytes 10.5 % % eosinophils 4.5 % % Basophils 0.5 % Neutrophils Absolute (A) 6.6 1.5 - 6.6 X10E9/L Lymphocytes Absolute 0.5 (L) 1.0 - 3.5 X10E9/L Monocytes Absolute 0.9 0 - 0.9 X10E9/L Eosinophils Absolute 0.4 0.0 - 0.4 X10E9/L Basophils Absolute 0.0 0.0 - 0.2 X10E9/L Bedside Glucose *Place/Obtain serum glucose if >500(>600 MRH) per glucometer. Collection Time: 12/30/23 8:43 AM Result Value Ref Range Bedside glucose 116 (H) 65 - 99 mg/dL Radiology No results found. HOSPITAL PROBLEM LIST Principal Problem: Cellulitis Active Problems: Chronic atrial fibrillation ([facility]) Diastolic heart failure ([facility]) Essential hypertension Mixed hyperlipidemia Type 2 diabetes mellitus with obesity ([facility]) Venous ulcer of left lower extremity without varicose veins ([facility]) Venous ulcer of right lower extremity without varicose veins ([facility]) Open wound of both lower extremities Lymphedema ASSESSMENT & PLAN Cellulitis/venous ulcer of bilateral lower extremities Vascular surgery, Wound care and hyperbaric Medicine, and Infectious Disease consulted WBC WNL 12/23 blood cultures x2 negative 12/23 Superficial wound culture showed many mixed Gram-positive and Gram-negative organisms, >25 WBC 10/[address] Kiran PRN pain medication & scheduled duloxetine, gabapentin Dressing changes per vascular orders- please premedicate prior to dressing changes We will defer need for further cardiac imaging to infectious disease/vascular surgery Continue Unasyn Type 2 diabetes Hemoglobin A1c 7.3 Continue insulin sliding scale Atrial fibrillation/diastolic heart failure/hypertension/hyperlipide tata Cardiology signed off Currently in atrial fibrillation, rate controlled Repeat echo obtained prior to hyperbaric oxygen therapy- showed LVEF 55-60 present, mild MR, Mobile echogenic density on posterior leaflet of the mitral valve may be mobile calcific/degenerative disease or vegetation Continue Lasix, Lipitor, Imdur, Lopressor, Coumadin Low suspicion for endocarditis per Cardiology DVT/VTE prophylaxis: SCD's and pharmacologic prophylaxis, warfarin, continue home dose. GI prophylaxis: add pantoprazole. PT/OT to evaluate and treat. DC planning: TBD. Jie Alexandre APRN-ERICKA 12/30/2023 10:25 AM [facility] Medicine - [facility] Hospitalists 7AM-7PM (all facilities): Message rounding KHAI in [employer] or page through [employer]. 7PM-7AM ([facility], [facility] Psychiatry and Inpatient Rehab): Page Night KHAI, [phone]. 7PM-7AM ([place], [place], [place], [place] and [facility] Rehab): Page on-call KHAI, . Jie Baldomero, RELOCATION COORDINATOR-TERMITE CONTROL REPRESENTATIVE 12/30/23 1833 Pharmacokinetic Consult - Follow Up Warfarin Dosing Hipolito Daniels is a 58 y.o. male for whom pharmacy has been consulted for warfarin dosing and monitoring. Subjective Indication for treatment: Anticoag Therapy Indication: Cardiac dysrhythmia Goal INR: Target INR: 2 - 3 Current inpatient warfarin regimen: see below Current Hematologic Labs Results from last 7 days Lab Units 12/30/23 0503 12/29/23 0513 12/28/23 0502 12/27/23 0505 12/26/23 0425 12/26/23 0010 12/25/23 0420 12/24/23 1253 INR 2.1* 2.1* 1.9* 1.6* 2.0* 2.0* 2.8* 4.5* Warfarin Administrations (last 168 hours) Date/Time Action Medication Dose 12/29/23 1550 Given warfarin (COUMADIN) tablet 5 mg 5 mg 12/28/23 1533 Given warfarin (COUMADIN) tablet 5 mg 5 mg 12/26/23 1639 Given warfarin (COUMADIN) tablet 5 mg 5 mg Assessment INR currently: therapeutic Drug-drug interactions: unasyn, duloxetine Drug-disease state interactions: DM2, obesity, CHF, thrombocytopenia, low albumin Plan RX Anticoag Warfarin IP dose plan: Continue current warfarin regimen of 5 mg daily. Pharmacist will continue to follow patient's clinical progress daily. Mini Donnelly RPH, PharmD Ext [phone] Images from the original note were not included. [facility] - Electrophysiology PROGRESS NOTE Covering for General Cardiology for the weekend SUBJECTIVE Mr. Daniels denies difficulty breathing or palpitation VITAL SIGNS BP 111/71 Pulse 118 Temp 36.6 C (97.9 F) (Oral) Resp 16 Ht 180.3 cm (5' 10.98 ) Wt 106.7 kg (235 lb 3.7 oz) SpO2 93% BMI 32.82 kg/m O2 Device: None (Room air) Admit Weight Weight: 110.7 kg (244 lb 0.8 oz) Last 3 Weights Last 3 Weight Readings 12/27/23 0527 12/27/23 1700 12/28/23 0538 Weight: 107.4 kg (236 lb 12.4 oz) 107.4 kg (236 lb 12.4 oz) 106.7 kg (235 lb 3.7 oz) Body mass index is 32.82 kg/m . INTAKE/OUTPUT Intake/Output Summary (Last 24 hours) at 12/29/2023 1256 Last data filed at 12/29/2023 0846 Gross per 24 hour Intake 1027.27 ml Output -- Net 1027.27 ml OBJECTIVE PHYSICAL EXAM: General appearance: Neck: Lungs: Heart: Irregular regular heart sound, tachycardic heart rate intermittently Abdomen: Extremities: Skin: Neurologic: LABS CBC Lab Results Component Value Date WBC 6.4 12/29/2023 HGB 12.2 (L) 12/29/2023 HCT 35.8 (L) 12/29/2023 MCV 92 12/29/2023 PLT 139 (L) 12/29/2023 BMP Lab Results Component Value Date CALCIUM 7.6 (L) 12/29/2023 K 4.2 12/29/2023 CO2 31 12/29/2023 CL 106 12/29/2023 BUN 30 (H) 12/29/2023 CREATININE 0.87 12/29/2023 PT/INR Lab Results Component Value Date INR 2.1 (H) 12/29/2023 INR 1.9 (H) 12/28/2023 INR 1.6 (H) 12/27/2023 PROTIME 23.5 (H) 12/29/2023 PROTIME 21.4 (H) 12/28/2023 PROTIME 18.7 (H) 12/27/2023 APTT Lab Results Component Value Date PTT 55 (H) 12/23/2023 MAG Lab Results Component Value Date MG 1.8 12/29/2023 D Dimer: No results found for: DDIMER Troponin T: No results found for: TROPONINI ProBNP: No results found for: NTBNP CURRENT MEDICATIONS ampicillin-sulbactam (UNASYN) IV, 3,000 mg, intravenous, Q6H atorvastatin, 80 mg, oral, Daily DULoxetine, 60 mg, oral, Daily furosemide, 20 mg, intravenous, Q24H LUZ gabapentin, 200 mg, oral, TID glyBURIDE, 2.5 mg, oral, Daily with breakfast insulin lispro, 2-10 Units, subcutaneous, TID with meals insulin lispro, 2-8 Units, subcutaneous, Nightly isosorbide mononitrate, 60 mg, oral, Daily metoprolol tartrate, 100 mg, oral, BID pantoprazole, 40 mg, oral, QAM AC sodium chloride, 3 mL, intravenous, Q12H LUZ sodium hypochlorite, 1 Application, topical, BID warfarin, 5 mg, oral, Daily CONTINUOUS INFUSIONS sodium chloride 0.9 %, 10 mL/hr, Last Rate: Stopped (12/28/23 1730) EKG: TELEMETRY: Atrial fibrillation ASSESSMENT / PLAN Principal Problem: Cellulitis Active Problems: Chronic atrial fibrillation ([facility]) Diastolic heart failure ([facility]) Essential hypertension Mixed hyperlipidemia Type 2 diabetes mellitus with obesity ([facility]) Venous ulcer of left lower extremity without varicose veins ([facility]) Venous ulcer of right lower extremity without varicose veins ([facility]) Open wound of both lower extremities Lymphedema Permanent AFib now on metoprolol, chronic anticoagulation with warfarin. Has infection improves and resolves and albumin improves his rate should improve as well. If not may consider adding low-dose digoxin for additional rate control if needed. On warfarin INR goal of 2.0-3.0. Cardiology consulted for possible consideration of EDITH due to the finding on transthoracic echocardiogram that has been addressed blood cultures have been negative no plans for EDITH at this point unless Infectious Disease prefers to pursue endocarditis. Cardiology will sign off Carla Marques MD [facility] - Electrophysiology Report prepared via voice recognition software. Although report is reviewed for accuracy prior to finalization, unrecognized typographical errors may be present. Please contact us with any questions regarding report. Pharmacokinetic Consult - Follow Up Warfarin Dosing Hipolito Daniels is a 58 y.o. male for whom pharmacy has been consulted for warfarin dosing and monitoring. Subjective Anticoag Therapy Indication: Cardiac dysrhythmia Target INR: 2 - 3 Current inpatient warfarin regimen: 5mg daily Current Hematologic Labs Results from last 7 days Lab Units 12/29/23 0513 12/28/23 0502 12/27/23 0505 12/26/23 0425 12/26/23 0010 12/25/23 0420 12/24/23 1253 12/23/23 0903 INR 2.1* 1.9* 1.6* 2.0* 2.0* 2.8* 4.5* 6.2* Warfarin Administrations (last 168 hours) Date/Time Action Medication Dose 12/28/23 1533 Given warfarin (COUMADIN) tablet 5 mg 5 mg 12/26/23 1639 Given warfarin (COUMADIN) tablet 5 mg 5 mg Assessment INR currently: therapeutic, up 0.2 from yesterday Drug-drug interactions: unasyn Drug-disease state interactions: obesity, DM2, CHF, low albumin Other pertinent information: home regimen is 5 mg Sun, Tu, Th + 7.5 mg AOD (elevated INR on admit) Plan RX Anticoag Warfarin IP dose plan: Continue current warfarin regimen of 5 mg daily. Pharmacist will continue to follow patient's clinical progress daily. Evy SHIRLEYD Ext [phone] Images from the original note were not included. [facility] MEDICINE [facility] HOSPITALISTS MD Nadege Brunner MD Kaleem Gill, MD Sneha Kommoori, MD Ruqiyya Muhammad, MD Kanchan Pillai, MD Ravi Pothireddy, MD Delmy Roger, MD Jayda Almendarez, TERMITE CONTROL REPRESENTATIVE Susan Ramírez, TERMITE CONTROL REPRESENTATIVE Sushila Sidhu, TERMITE CONTROL REPRESENTATIVE Meche Quiñonez, TERMITE CONTROL REPRESENTATIVE Nilda De La Rosa, TERMITE CONTROL REPRESENTATIVE Antonina Boo, TERMITE CONTROL REPRESENTATIVE Arely Cadena, TERMITE CONTROL REPRESENTATIVE Jie Alexandre, TERMITE CONTROL REPRESENTATIVE Con Garcia, TERMITE CONTROL REPRESENTATIVE Annalisa Hagan, TERMITE CONTROL REPRESENTATIVE Sushma Monzon, TERMITE CONTROL REPRESENTATIVE Jocelynn Chavis, TERMITE CONTROL REPRESENTATIVE Yanet Cortes, TERMITE CONTROL REPRESENTATIVE Carole Nielson, TERMITE CONTROL REPRESENTATIVE Kayce Callaway, TERMITE CONTROL REPRESENTATIVE Sushma Wong, ERICKA Maher, ERICKA Turner, [facility] Medicine Progress Note Patient: Hipolito Daniels Date of : 1965 Room: 56/01 PCP: SYDNEY GRIFFITH DO Admission date: 12/25/2023 10:08 PM Encounter date: 12/29/23 Hospital Day: 5 SUBJECTIVE Chief complaints: No chief complaint on file. Interval History: Status: stable. No overnight events or new complaints. Patient seen and evaluated at bedside. He is sitting up in the chair and appears comfortable. He continues to endorse pain in his bilateral lower extremities which he feels is related to his neuropathy only much worse. He has been taking oral pain medications and IV push medications for breakthrough pain. He denies any chest pain, shortness for breath, or abdominal pain. Review of Systems Constitutional: Positive for fatigue. Negative for chills and fever. HENT: Negative for ear pain and sore throat. Eyes: Negative for pain and visual disturbance. Respiratory: Negative for cough and shortness of breath. Cardiovascular: Positive for leg swelling. Negative for chest pain and palpitations. Gastrointestinal: Negative for abdominal pain and vomiting. Genitourinary: Negative for dysuria and hematuria. Musculoskeletal: Positive for gait problem. Negative for arthralgias and back pain. Skin: Positive for color change and wound. Negative for rash. Neurological: Positive for weakness. Negative for seizures, syncope and numbness. Psychiatric/Behavioral: Negative for sleep disturbance. The patient is not nervous/anxious. All other systems reviewed and are negative. OBJECTIVE BP 96/62 Pulse 96 Temp 36.6 C (97.9 F) (Oral) Resp 16 Ht 180.3 cm (5' 10.98 ) Wt 106.7 kg (235 lb 3.7 oz) SpO2 94% BMI 32.82 kg/m Temp: [36.6 C (97.8 F)-37.2 C (98.9 F)] 36.6 C (97.9 F) Pulse: [96-117] 96 Resp: [16-18] 16 BP: (93-107)/(51-74) 96/62 SpO2: [94 %-98 %] 94 % O2 Device: Nasal cannula O2 Flow Rate (L/min): [0 L/min-2 L/min] 2 L/min Intake/Output Summary (Last 24 hours) at 12/29/2023 0917 Last data filed at 12/29/2023 0846 Gross per 24 hour Intake 1127.27 ml Output -- Net 1127.27 ml Physical Exam Physical Exam Constitutional: General: He is not in acute distress. Sitting up in the chair. Appearance: He is well-developed. Eyes: Pupils: Pupils are equal, round, and reactive to light. Cardiovascular: Rate and Rhythm: Normal rate. Rhythm irregular. Heart sounds: Normal heart sounds. No murmur heard. Comments: Atrial fibrillation on monitor Unable to palpate DP/PT pulses- able to auscultate with Doppler per bedside RN Cap refill 2-3 seconds in bilateral lower extremities Pulmonary: Effort: Pulmonary effort is normal. Breath sounds: Normal breath sounds. No wheezing, rhonchi or rales. Abdominal: General: Bowel sounds are normal. Palpations: Abdomen is soft, rounded. There is no mass. Tenderness: There is no abdominal tenderness. Musculoskeletal: General: Tenderness (Bilateral lower extremities) present. Normal range of motion. Right lower leg: Edema present. Left lower leg: Edema present. Skin: General: Skin is warm and dry. Capillary Refill: Capillary refill takes 2 to 3 seconds. Findings: Erythema and wound present. No rash. Comments: Bilateral lower extremities dressed per vascular orders Neurological: General: No focal deficit present. Mental Status: He is alert and oriented to person, place, and time. Sensory: No sensory deficit. Motor: Weakness (Bilateral lower extremities limited due to pain) present. Fine tremor in bilateral lower extremities I believe is secondary to his current level of pain Psychiatric: Mood and Affect: Mood normal. Behavior: Behavior normal. Medications Scheduled: ampicillin-sulbactam (UNASYN) IV, 3,000 mg, intravenous, Q6H atorvastatin, 80 mg, oral, Daily DULoxetine, 60 mg, oral, Daily furosemide, 20 mg, intravenous, Q24H LUZ gabapentin, 200 mg, oral, TID glyBURIDE, 2.5 mg, oral, Daily with breakfast insulin lispro, 2-10 Units, subcutaneous, TID with meals insulin lispro, 2-8 Units, subcutaneous, Nightly isosorbide mononitrate, 60 mg, oral, Daily metoprolol tartrate, 100 mg, oral, BID pantoprazole, 40 mg, oral, QAM AC sodium chloride, 3 mL, intravenous, Q12H LUZ sodium hypochlorite, 1 Application, topical, BID warfarin, 5 mg, oral, Daily Infusions: sodium chloride 0.9 %, 10 mL/hr, Last Rate: Stopped (12/28/23 1730) As Needed: acetaminophen alum-mag hydroxide-simeth dextrose dextrose 50 % in water (D50W) glucagon (human recombinant) HYDROmorphone magnesium oxide ondansetron ODT oxyCODONE OR oxyCODONE potassium chloride OR potassium chloride sennosides-docusate sodium sodium chloride sodium chloride 0.9 % Allergies: Ciprofloxacin, Keflex [cephalexin], Albuterol, Shellfish derived, and Magnesium sulfate Code Status: Full Code Labs Recent Results (from the past 24 hour(s)) Lactate w/ Reflex Collection Time: 12/28/23 9:50 AM Result Value Ref Range Lactate w/ Reflex 1.5 0.4 - 2.0 mmol/L Bedside Glucose *Place/Obtain serum glucose if >500(>600 MRH) per glucometer. Collection Time: 12/28/23 1:09 PM Result Value Ref Range Bedside glucose 115 (H) 65 - 99 mg/dL Bedside Glucose *Place/Obtain serum glucose if >500(>600 MRH) per glucometer. Collection Time: 12/28/23 3:34 PM Result Value Ref Range Bedside glucose 77 65 - 99 mg/dL Bedside Glucose *Place/Obtain serum glucose if >500(>600 MRH) per glucometer. Collection Time: 12/28/23 9:25 PM Result Value Ref Range Bedside glucose 167 (H) 65 - 99 mg/dL Protime & INR Collection Time: 12/29/23 5:13 AM Result Value Ref Range Protime 23.5 (H) 9.8 - 13.2 sec Inr 2.1 (H) 0.8 - 1.1 Comprehensive metabolic panel Collection Time: 12/29/23 5:13 AM Result Value Ref Range Sodium 143 134 - 146 mmol/L Potassium, Bld 4.2 3.5 - 5.0 mmol/L Chloride 106 98 - 109 mmol/L CO2 31 22 - 32 mmol/L Anion gap 6 5 - 15 mmol/L BUN 30 (H) 5 - 23 mg/dL Creatinine 0.87 0.60 - 1.30 mg/dL Glucose 201 (H) 65 - 99 mg/dL Calcium 7.6 (L) 8.5 - 10.5 mg/dL Total Protein 4.5 (L) 6.0 - 8.0 g/dL Albumin 2.1 (L) 3.2 - 5.3 g/dL Alkaline Phosphatase 192 (H) 39 - 130 U/L AST 39 0 - 41 U/L ALT 58 (H) 0 - 40 U/L Total bilirubin 0.8 0.3 - 1.2 mg/dL eGFR (CKD-EPI)non-race dependent >90 >59 ml/min/1.73sq.m Magnesium Collection Time: 12/29/23 5:13 AM Result Value Ref Range Magnesium 1.8 1.8 - 2.6 mg/dL CBC auto differential Collection Time: 12/29/23 5:13 AM Result Value Ref Range White Blood Cells 6.4 4.0 - 11.0 X10E9/L RBC count 3.90 (L) 4.10 - 5.70 X10E12/L Hemoglobin 12.2 (L) 13.0 - 17.0 g/dL Hematocrit 35.8 (L) 39 - 49 % MCV 92 80 - 100 fL MCH 31.4 27 - 34 pg MCHC 34.2 32 - 36 g/dL RDW 14.9 11.5 - 15.0 % Platelets 139 (L) 150 - 450 X10E9/L MPV 8.2 7 - 12 fL % neutrophils 70.3 % % lymphocytes 8.9 % % monocytes 13.3 % % eosinophils 7.1 % % Basophils 0.4 % Neutrophils Absolute (A) 4.5 1.5 - 6.6 X10E9/L Lymphocytes Absolute 0.6 (L) 1.0 - 3.5 X10E9/L Monocytes Absolute 0.9 0 - 0.9 X10E9/L Eosinophils Absolute 0.5 (H) 0.0 - 0.4 X10E9/L Basophils Absolute 0.0 0.0 - 0.2 X10E9/L Bedside Glucose *Place/Obtain serum glucose if >500(>600 MRH) per glucometer. Collection Time: 12/29/23 7:58 AM Result Value Ref Range Bedside glucose 131 (H) 65 - 99 mg/dL Radiology No results found. HOSPITAL PROBLEM LIST Principal Problem: Cellulitis Active Problems: Chronic atrial fibrillation ([facility]) Diastolic heart failure ([facility]) Essential hypertension Mixed hyperlipidemia Type 2 diabetes mellitus with obesity ([facility]) Venous ulcer of left lower extremity without varicose veins ([facility]) Venous ulcer of right lower extremity without varicose veins ([facility]) Open wound of both lower extremities Lymphedema ASSESSMENT & PLAN Cellulitis Venous ulcer of bilateral lower extremities Vascular surgery, Wound care and hyperbaric Medicine, and Infectious Disease consulted WBC 13.2 on admission, currently 8.4 Rapid lactate 1.5 12/23 blood cultures x2 show no growth x5 days, final 12/23 Superficial wound culture showed many mixed Gram-positive and Gram-negative organisms, >25 WBC UA negative; UC not sent; Legionella/S. Pseudomonae negative Cefepime and vancomycin discontinued per Infectious Disease, currently on Unasyn 10/[address] Kiran Pain control with oxycodone q.4 hours PRN, fentanyl and Dilaudid for breakthrough pain only Started on duloxetine and Lyrica for nerve pain Dressing changes per vascular orders- please premedicate prior to dressing changes We will defer need for further cardiac imaging to infectious disease/vascular surgery Type 2 diabetes mellitus A1c 6.5 in August 2023 Recheck A1c 7.3 Insulin sliding scale AC/HS Continue consistent carb diet Atrial fibrillation Diastolic heart failure Hypertension Hyperlipidemia Cardiology consulted Currently in atrial fibrillation, rate controlled Last echo in January of 2022 with normal ventricular systolic function, LVEF 55 to 60%, mild mitral regurgitation, mildly elevated right-sided pressures, no pericardial effusion, moderate biatrial dilatation. BNP 27 Repeat echo obtained prior to hyperbaric oxygen therapy- showed LVEF 55-60 present, mild MR, Mobile echogenic density on posterior leaflet of the mitral valve may be mobile calcific/degenerative disease or vegetation Continue Lasix, Lipitor, Imdur, Lopressor Low suspicion for endocarditis per Cardiology Supratherapeutic INR- resolved INR on admission to [place] 6.2 Current INR within range Pharmacy to dose warfarin DVT/VTE prophylaxis: SCD's and pharmacologic prophylaxis, warfarin, continue home dose. GI prophylaxis: add pantoprazole. PT/OT to evaluate and treat. DC planning: GABINOD. Sushma Wong, STEPHANIE-TERMITE CONTROL REPRESENTATIVE 12/29/2023 9:17 AM [facility] Medicine - [facility] Hospitalists 7AM-7PM (all facilities): Message rounding KHAI in Kareo or page through Vocera. 7PM-7AM ([facility], [facility] Psychiatry and Inpatient Rehab): Page Night KHAI, [phone]. 7PM-7AM ([place], [place], [place], [place] and [facility] Rehab): Page on-call KHAI, . Sushma Wong, STEPHANIE-TERMITE CONTROL REPRESENTATIVE 12/29/23 1121 Patient seen and examined Interviewed and any questions answered All labs , xrays reviewed Clinical assessment and decisions made by myself in entirety Discussed case with team Agree with above assessment and plan Electronically signed by: FRANCHESKA FELIPE MD, 12/29/2023 1:11 PM [facility] [address] [place] [address] (P): [phone] (F): [phone] Images from the original note were not included. Division of Infectious Diseases -progress Note [facility] - Academic Team 1 During Business Hours: Please use Kareo for communication. After Hours: Please call for our answering service. Patient name: Hipolito Daniels Patient Today's Date and Time: 12/28/2023, 4:09 PM Admission Date: 12/25/2023 Primary Care Physician: SYDNEY GRIFFITH DO Impression and Recommendations:: - bilateral lower extremity cellulitis , soft tissue infection. - bilateral lower extremity venous ulcers. - bacteremia ruled out. - no concern of osteomyelitis. Presented with 3-4 week history of bilateral lower leg wounds, progressive in nature, involving medial and lateral aspects, associated erythema, malodorous drainage, necrotic issues. Blood cultures negative, superficial wound culture showed Gram-positive cocci, Gram-negative rods but no Pseudomonas, staph aureus. Patient needs meticulous wound care, edema management with leg elevation, proper hygiene. Status post IV vancomycin and cefepime, continue with IV Unasyn for polymicrobial growth and anaerobic coverage, status post incision and drainage , no surgical cultures available. Continue with wound care. Probably will need re-evaluation for repeat debridement. -> hypertension, dyslipidemia, coronary artery disease. -> diabetes mellitus, associated neuropathy, CKD. -> chronic atrial fibrillation, diastolic heart failure. -> obesity, chronic obstructive pulmonary disease. History of Present Illness We appreciate the opportunity to consult on Hipolito Daniels, a 58 y.o.-year-old male who was initially admitted on 12/25/2023. Seen examined at bedside Status post debridement yesterday by vascular surgery, left lower extremity Patient denies any fever, chills. Pain in bilateral lower extremities improved. Tolerating IV antibiotics. Patient still has some residual necrotic tissues over bilateral lower extremities. Hemodynamically stable. Past Medical History: Past Medical History: Diagnosis Date Angina pectoris ([facility] [place]) Arthritis Atrial fibrillation ([facility] [place] [place]) Chronic kidney disease kidney stones COPD (chronic obstructive pulmonary disease) ([facility] [place] [place]) Coronary artery disease Dental disease Diabetes mellitus type 2, controlled ([facility] [place] [place]) Hyperlipidemia Hypertension Migraines Myocardial infarction ([facility] [place] [place]) x2 Obesity Pneumonia Rash Shortness of breath Visual impairment glasses Past Surgical History: Past Surgical History: Procedure Laterality Date ABDOMINAL SURGERY complete abdominoplasty APPENDECTOMY CARDIAC CATHETERIZATION LAD stents x2 CARDIAC ELECTROPHYSIOLOGY MAPPING AND ABLATION CHOLECYSTECTOMY HERNIA REPAIR KNEE ARTHROSCOPY Bilateral LITHOTRIPSY MANIPULATION SHOULDER Left 06/19/2018 Performed by Jr Kendy Renee DO at [facility] Medications: ampicillin-sulbactam (UNASYN) IV, 3,000 mg, intravenous, Q6H atorvastatin, 80 mg, oral, Daily furosemide, 20 mg, intravenous, Q24H LUZ glyBURIDE, 2.5 mg, oral, Daily with breakfast insulin lispro, 2-10 Units, subcutaneous, TID with meals insulin lispro, 2-8 Units, subcutaneous, Nightly isosorbide mononitrate, 60 mg, oral, Daily metoprolol tartrate, 100 mg, oral, BID pantoprazole, 40 mg, oral, QAM AC sodium chloride, 3 mL, intravenous, Q12H LUZ sodium chloride, 3 mL, intravenous, Q12H LUZ sodium hypochlorite, 1 Application, topical, BID warfarin, 5 mg, oral, Daily Social History: Social History Socioeconomic History Marital status: Spouse name: Not on file Number of children: Not on file Years of education: Not on file Highest education level: Not on file Occupational History Not on file Tobacco Use Smoking status: Every Day Packs/day: 1 Types: Cigarettes Smokeless tobacco: Never Vaping Use Vaping Use: Not on file Substance and Sexual Activity Alcohol use: No Drug use: Yes Frequency: 3.0 times per week Types: Marijuana Comment: as needed for pain Sexual activity: Defer Other Topics Concern Not on file Social History Narrative Not on file Social Determinants of Health Financial Resource Strain: Low Risk (12/23/2023) Overall Financial Resource Strain (CARDIA) Difficulty of Paying Living Expenses: Not hard at all Food Insecurity: Food Insecurity Present (12/23/2023) Hunger Screening Food Insecurity - Worry: Sometimes True Food Insecurity - Inability: Sometimes True Transportation Needs: No Transportation Needs (12/23/2023) PRAPARE - Transportation Lack of Transportation (Medical): No Lack of Transportation (Non-Medical): No Physical Activity: Insufficiently Active (12/23/2023) Exercise Vital Sign Days of Exercise per Week: 2 days Minutes of Exercise per Session: 20 min Stress: No Stress Concern Present (12/23/2023) [employer] [place] [employer] - Occupational Stress Questionnaire Feeling of Stress : Only a little Social Connections: Socially Isolated (12/23/2023) Social Connection and Isolation Panel [NHANES] Frequency of Communication with Friends and Family: Three times a week Frequency of Social Gatherings with Friends and Family: Three times a week Attends Jew Services: Never Active Member of Clubs or Organizations: No Attends Club or Organization Meetings: Never Marital Status: Interpersonal Safety: Not At Risk (12/23/2023) Humiliation, Afraid, Rape, and Kick questionnaire Fear of Current or Ex-Partner: No Emotionally Abused: No Physically Abused: No Sexually Abused: No Housing Instability: Low Risk (12/23/2023) Housing Instability Housing Instability: No Family History: Family History Problem Relation Age of Onset Heart disease Mother Diabetes Mother Heart disease Father Heart attack Father Immunization History: Immunization History Administered Date(s) Administered COVID-19, mRNA, LNP-S, PF, 30mcg/0.3mL Dose 03/20/2021, 04/10/2021, 10/12/2021 Influenza, Injectable, Mdck, Preservative Free, Quad 09/08/2018, 01/28/2020 Pneumococcal Conjugate 13-Valent 10/20/2018 Allergies: Allergies Allergen Reactions Ciprofloxacin Hives Keflex [Cephalexin] Hives Albuterol Tachycardia Shellfish Derived Other (See Comments) Chills Magnesium Sulfate pain IV only- Patient reports it feels like someone is putting lava in my veins Review of Systems: General: No fevers or chills. Eyes: No double vision or blurry vision. ENT: No sore throat or runny nose. Cardiovascular: No chest pain or palpitations. Lung: No shortness of breath or cough. Abdomen: No nausea, vomiting, diarrhea, or abdominal pain. Genitourinary: No increased urinary frequency, or dysuria. Musculoskeletal: No muscle aches or pains. Hematologic: No bleeding or bruising. Neurologic: No headache, weakness, numbness, or tingling. Objective Physical Examination: BP 107/61 Pulse 108 Temp 36.6 C (97.8 F) (Oral) Resp 18 Ht 180.3 cm (5' 10.98 ) Wt 106.7 kg (235 lb 3.7 oz) SpO2 96% BMI 32.82 kg/m Temperature Range: Temp: 36.6 C (97.8 F) Temp Av.4 C (97.6 F) Min: 36 C (96.8 F) Max: 36.7 C (98.1 F) Constitutional: Awake, alert, and in no apparent distress. Eyes: Sclera anicteric, conjunctivae pink. ENT/Mouth: Oropharynx clear, without erythema, exudate, or thrush. Neck: Supple, without lymphadenopathy. Cardiovascular: Regular rate and rhythm without murmurs, rubs, or gallops. Respiratory: Clear to auscultation, without wheezes, rales, or rhonchi. Gastrointestinal/Abdomen: Soft, non-tender; no masses or hepatosplenomegaly. Musculoskeletal/Extremities:: Bilateral lower extremity cellulitis, erythema, tenderness and foul-smelling malodorous drainage with necrotic tissues. More detail in Wound Care note. Neurovascular status of lower extremities intact. Labs: Results from last 7 days Lab Units 12/28/23 0502 12/27/23 0505 12/26/23 0425 WBC X10E9/L 8.4 10.6 9.3 HEMOGLOBIN g/dL 13.6 13.5 14.0 HEMATOCRIT % 40.7 39.9 41.1 MCV fL 93 92 91 PLATELETS X10E9/L 172 172 139* NEUTROS ABS X10E9/L 6.6 8.2* 7.1* LYMPHS ABS AUTO X10E9/L 0.5* 0.9* 0.7* MONOS ABS AUTO X10E9/L 0.9 1.1* 1.1* EOS ABS AUTO X10E9/L 0.4 0.4 0.3 BASOS ABS AUTO X10E9/L 0.0 0.1 0.0 Results from last 7 days Lab Units 12/28/23 1534 12/28/23 1309 12/28/23 0646 12/28/23 0502 12/27/23 0754 12/27/23 0505 12/26/23 0747 12/26/23 0425 SODIUM mmol/L -- -- -- 142 -- 141 -- 138 POTASSIUM mmol/L -- -- -- 4.3 -- 4.2 -- 5.2* CHLORIDE mmol/L -- -- -- 106 -- 111* -- 110* CO2 mmol/L -- -- -- 28 -- 25 -- 24 BUN mg/dL -- -- -- 24* -- 28* -- 36* CREATININE mg/dL -- -- -- 0.86 -- 0.94 -- 0.81 BEDSIDE GLUCOSE mg/dL 77 115* 135* -- < > -- < > -- GLUCOSE mg/dL -- -- -- 157* -- 112* -- 139* CALCIUM mg/dL -- -- -- 7.9* -- 7.7* -- 8.0* ALBUMIN g/dL -- -- -- 2.2* -- 2.1* -- 2.3* ALK PHOS U/L -- -- -- 221* -- 184* -- 208* ALT U/L -- -- -- 68* -- 56* -- 73* AST U/L -- -- -- 51* -- 28 -- 36 < > = values in this interval not displayed. Results from last 7 days Lab Units 12/26/23 1911 SED RATE mm/h 37* CRP mg/dL 14.2* HEMOGLOBIN A1C % 7.3* Results from last 7 days Lab Units 12/23/23 1755 COLOR YELLOW TURBIDITY CLEAR SPECIFIC GRAVITY 1.015 NITRITE Negative PH URINE 6.0 LEUKOCYTE ESTERASE Negative PROTEIN mg/dL Negative KETONES (URINE) mg/dL Negative UROBILINOGEN eu/dL 0.2 BLDHGB Negative Imaging Studies: I have personally reviewed this study. Cultures: Microbiology Results Procedure Component Value Units Date/Time Blood culture [[id number]] Collected: 12/23/23 0903 Specimen: Blood Updated: 12/28/23 1316 Specimen Notes RIGHT HAND Culture NO GROWTH 5 DAYS Blood culture [[id number]] Collected: 12/23/23 0850 Specimen: Blood Updated: 12/28/23 1316 Specimen Notes LEFT HAND Culture NO GROWTH 5 DAYS Wound culture superficial includes gram stain [[id number]] Collected: 12/23/23 0835 Specimen: Wound Swab Updated: 12/25/23 0902 Gram Stain Result >25 WHITE BLOOD CELLS/LPF 1 to 9 SQUAMOUS EPITHELIAL CELLS/LPF MANY GRAM NEGATIVE RODS MANY GRAM POSITIVE COCCI MANY GRAM POSITIVE RODS RESEMBLING DIPHTHEROIDS Culture MANY MIXED GRAM POSITIVE AND GRAM NEGATIVE ORGANISMS NO STAPHYLOCOCCUS AUREUS ISOLATED NO PSEUDOMONAS AERUGINOSA ISOLATED NO BETA HEMOLYTIC STREPTOCOCCI ISOLATED Thank you for allowing us to participate in the care of this patient. Please call with questions. Tru Belle. Infectious Disease Fellow , PGY-5 From 7AM-7PM: Please use Kareo for communication. From 7PM-7AM: Please call for our answering service. Associated attestation - Thaddeus Roger DO - 12/28/2023 10:26 PM EST I performed a history and physical examination of the patient Hipolito Daniels, I independently reviewed the laboratory work and imaging as well as other studies mentioned in the above note; I have seen the patient along with and discussed the management with the Infectious Diseases fellow, Tru Belle MD I have reviewed the above note, I agree with the findings and plan of care with the following additions and corrections: Agree with above. Thank you for allowing us to participate in the care of this patient. - THADDEUS ROGER, 12/28/23 10:26 PM [facility] Infectious Diseases Message me via [employer] secure chat Pharmacokinetic Consult - Follow Up Warfarin Dosing Hipolito Daniels is a 58 y.o. male for whom pharmacy has been consulted for warfarin dosing and monitoring. Subjective Anticoag Therapy Indication: Cardiac dysrhythmia Target INR: 2 - 3 Current inpatient warfarin regimen: 5mg daily, dose held yesterday for unclear reason Current Hematologic Labs Results from last 7 days Lab Units 12/28/23 0502 12/27/23 0505 12/26/23 0425 12/26/23 0010 12/25/23 0420 12/24/23 1253 12/23/23 0903 INR 1.9* 1.6* 2.0* 2.0* 2.8* 4.5* 6.2* Warfarin Administrations (last 168 hours) Date/Time Action Medication Dose 12/26/23 1639 Given warfarin (COUMADIN) tablet 5 mg 5 mg Assessment INR currently: subtherapeutic, up 0.3 from yesterday Drug-drug interactions: unasyn Drug-disease state interactions: obesity, DM2, CHF, low albumin Other pertinent information: home regimen is 5 mg Sun, Tues, Thurs + 7.5 mg AOD (elevated INR on admit) Plan RX Anticoag Warfarin IP dose plan: Continue current warfarin regimen of 5 mg daily. Pharmacist will continue to follow patient's clinical progress daily. EMILY CHÁVEZ PharmD Ext [id number] Images from the original note were not included. [facility] MEDICINE [facility]PITAL[facility] MD Nadege Brunner MD Kaleem Gill, MD Sneha Kommoori, MD Ruqiyya Muhammad, MD Kanchan Pillai, MD Roger Loja, MD Delmy Roger, MD Jayda Almendarez, TERMITE CONTROL REPRESENTATIVE Susan Ramírez, TERMITE CONTROL REPRESENTATIVE Sushila Sidhu, TERMITE CONTROL REPRESENTATIVE Meche Quiñonez, TERMITE CONTROL REPRESENTATIVE Nilda De La Rosa, TERMITE CONTROL REPRESENTATIVE Antonina Boo, TERMITE CONTROL REPRESENTATIVE Arely Cadena, TERMITE CONTROL REPRESENTATIVE Jie Alexandre, TERMITE CONTROL REPRESENTATIVE Con Garcia, TERMITE CONTROL REPRESENTATIVE Annalisa Hagan, TERMITE CONTROL REPRESENTATIVE Sushma Monzon, TERMITE CONTROL REPRESENTATIVE Jocelynn Chavis, TERMITE CONTROL REPRESENTATIVE Yanet Cortes, TERMITE CONTROL REPRESENTATIVE Carole Nielson, TERMITE CONTROL REPRESENTATIVE Kayce Callaway, TERMITE CONTROL REPRESENTATIVE Sushma Wong, TERMITE CONTROL REPRESENTATIVE Thalia Maher, TERMITE CONTROL REPRESENTATIVE Bipin Turner, TERMITE CONTROL REPRESENTATIVE [facility] Medicine Progress Note Patient: Hipolito Daniels Date of : 1965 Room: [place] [address] PCP: SYDNEY GRIFFITH DO Admission date: 12/25/2023 10:08 PM Encounter date: 12/28/23 Hospital Day: 4 SUBJECTIVE Chief complaints: No chief complaint on file. Interval History: Status: stable. No overnight events. Patient had episode of hypotension this morning and he was given albumin which resolved his hypotension. Currently getting Lasix 20 mg IVP daily for diuresis. Patient seen and examined at bedside. He endorses increased pain in his bilateral lower extremities postoperatively. He currently has lost IV access and RN is attempting to regain a new PIV so she can administer Dilaudid. Patient describes the pain to me as a burning-type pain. He reports he has been on Neurontin in the past but did not help his neuropathy. Denies ever trying other nerve pain type medications. He denies any chest pain, shortness on breath, or abdominal pain. Review of Systems Constitutional: Positive for fatigue. Negative for chills and fever. HENT: Negative for ear pain and sore throat. Eyes: Negative for pain and visual disturbance. Respiratory: Negative for cough and shortness of breath. Cardiovascular: Positive for leg swelling. Negative for chest pain and palpitations. Gastrointestinal: Negative for abdominal pain and vomiting. Genitourinary: Negative for dysuria and hematuria. Musculoskeletal: Positive for gait problem. Negative for arthralgias and back pain. Skin: Positive for color change and wound. Negative for rash. Neurological: Positive for weakness. Negative for seizures, syncope and numbness. Psychiatric/Behavioral: Negative for sleep disturbance. The patient is not nervous/anxious. All other systems reviewed and are negative. OBJECTIVE BP (!) 80/46 Comment: RN notified Pulse 110 Temp 36.5 C (97.7 F) (Oral) Resp 16 Ht 180.3 cm (5' 10.98 ) Wt 106.7 kg (235 lb 3.7 oz) SpO2 97% BMI 32.82 kg/m Temp: [36 C (96.8 F)-36.8 C (98.2 F)] 36.5 C (97.7 F) Pulse: [107-145] 110 Resp: [12-33] 16 BP: (80-133)/(46-89) 80/46 SpO2: [79 %-98 %] 97 % O2 Device: None (Room air) O2 Flow Rate (L/min): [2 L/min] 2 L/min Intake/Output Summary (Last 24 hours) at 12/28/2023 0831 Last data filed at 12/28/2023 0814 Gross per 24 hour Intake 970 ml Output -- Net 970 ml Physical Exam Physical Exam Constitutional: General: He is not in acute distress. Appearance: He is well-developed. Eyes: Pupils: Pupils are equal, round, and reactive to light. Cardiovascular: Rate and Rhythm: Normal rate. Rhythm irregular. Heart sounds: Normal heart sounds. No murmur heard. Comments: Atrial fibrillation on monitor Unable to palpate DP/PT pulses- able to auscultate with Doppler per bedside RN Cap refill 2-3 seconds in bilateral lower extremities Pulmonary: Effort: Pulmonary effort is normal. Breath sounds: Normal breath sounds. No wheezing, rhonchi or rales. Abdominal: General: Bowel sounds are normal. Palpations: Abdomen is soft, rounded. There is no mass. Tenderness: There is no abdominal tenderness. Musculoskeletal: General: Tenderness (Bilateral lower extremities) present. Normal range of motion. Right lower leg: Edema present. Left lower leg: Edema present. Skin: General: Skin is warm and dry. Capillary Refill: Capillary refill takes 2 to 3 seconds. Findings: Erythema and wound present. No rash. Comments: Bilateral lower extremities dressed per vascular orders- malodorous and weeping through dressings. RN recently applied new dressings- see photos attached below Neurological: General: No focal deficit present. Mental Status: He is alert and oriented to person, place, and time. Sensory: No sensory deficit. Motor: Weakness (Bilateral lower extremities limited due to pain) present. Fine tremor in bilateral lower extremities I believe is secondary to his current level of pain Psychiatric: Mood and Affect: Mood normal. Behavior: Behavior normal. Photos per RN from dressing change today: Medications Scheduled: ampicillin-sulbactam (UNASYN) IV, 3,000 mg, intravenous, Q6H atorvastatin, 80 mg, oral, Daily furosemide, 20 mg, intravenous, Q24H LUZ glyBURIDE, 2.5 mg, oral, Daily with breakfast insulin lispro, 2-10 Units, subcutaneous, TID with meals insulin lispro, 2-8 Units, subcutaneous, Nightly isosorbide mononitrate, 60 mg, oral, Daily metoprolol tartrate, 100 mg, oral, BID pantoprazole, 40 mg, oral, QAM AC sodium chloride, 3 mL, intravenous, Q12H LUZ sodium chloride, 3 mL, intravenous, Q12H LUZ sodium hypochlorite, 1 Application, topical, BID warfarin, 5 mg, oral, Daily Infusions: lactated ringer's, 50 mL/hr, Last Rate: 50 mL/hr (12/27/23 1750) sodium chloride 0.9 %, 10 mL/hr, Last Rate: 10 mL/hr (12/26/232100) As Needed: acetaminophen alum-mag hydroxide-simeth dextrose dextrose 50 % in water (D50W) fentaNYL fentaNYL fentaNYL glucagon (human recombinant) HYDROmorphone HYDROmorphone HYDROmorphone HYDROmorphone lidocaine PF magnesium oxide naloxone ondansetron ODT oxyCODONE OR oxyCODONE oxyCODONE OR oxyCODONE potassium chloride OR potassium chloride sennosides-docusate sodium sodium chloride sodium chloride sodium chloride 0.9 % Allergies: Ciprofloxacin, Keflex [cephalexin], Albuterol, Shellfish derived, and Magnesium sulfate Code Status: Full Code Labs Recent Results (from the past 24 hour(s)) Bedside Glucose *Place/Obtain serum glucose if >500(>600 MRH) per glucometer. Collection Time: 12/27/23 11:55 AM Result Value Ref Range Bedside glucose 107 (H) 65 - 99 mg/dL Vancomycin, trough Collection Time: 12/27/23 12:00 PM Result Value Ref Range Vancomycin trough 23.6 (H) 5.0 - 20.0 ug/mL Bedside Glucose *Place/Obtain serum glucose if >500(>600 MRH) per glucometer. Collection Time: 12/27/23 4:38 PM Result Value Ref Range Bedside glucose 99 65 - 99 mg/dL Bedside Glucose *Place/Obtain serum glucose if >500(>600 MRH) per glucometer. Collection Time: 12/27/23 9:46 PM Result Value Ref Range Bedside glucose 130 (H) 65 - 99 mg/dL Protime & INR Collection Time: 12/28/23 5:02 AM Result Value Ref Range Protime 21.4 (H) 9.8 - 13.2 sec Inr 1.9 (H) 0.8 - 1.1 Comprehensive metabolic panel Collection Time: 12/28/23 5:02 AM Result Value Ref Range Sodium 142 134 - 146 mmol/L Potassium, Bld 4.3 3.5 - 5.0 mmol/L Chloride 106 98 - 109 mmol/L CO2 28 22 - 32 mmol/L Anion gap 8 5 - 15 mmol/L BUN 24 (H) 5 - 23 mg/dL Creatinine 0.86 0.60 - 1.30 mg/dL Glucose 157 (H) 65 - 99 mg/dL Calcium 7.9 (L) 8.5 - 10.5 mg/dL Total Protein 5.0 (L) 6.0 - 8.0 g/dL Albumin 2.2 (L) 3.2 - 5.3 g/dL Alkaline Phosphatase 221 (H) 39 - 130 U/L AST 51 (H) 0 - 41 U/L ALT 68 (H) 0 - 40 U/L Total bilirubin 1.0 0.3 - 1.2 mg/dL eGFR (CKD-EPI)non-race dependent >90 >59 ml/min/1.73sq.m Magnesium Collection Time: 12/28/23 5:02 AM Result Value Ref Range Magnesium 1.6 (L) 1.8 - 2.6 mg/dL CBC auto differential Collection Time: 12/28/23 5:02 AM Result Value Ref Range White Blood Cells 8.4 4.0 - 11.0 X10E9/L RBC count 4.38 4.10 - 5.70 X10E12/L Hemoglobin 13.6 13.0 - 17.0 g/dL Hematocrit 40.7 39 - 49 % MCV 93 80 - 100 fL MCH 31.0 27 - 34 pg MCHC 33.4 32 - 36 g/dL RDW 15.3 (H) 11.5 - 15.0 % Platelets 172 150 - 450 X10E9/L MPV 8.4 7 - 12 fL % neutrophils 78.1 % % lymphocytes 6.5 % % monocytes 10.4 % % eosinophils 4.4 % % Basophils 0.6 % Neutrophils Absolute (A) 6.6 1.5 - 6.6 X10E9/L Lymphocytes Absolute 0.5 (L) 1.0 - 3.5 X10E9/L Monocytes Absolute 0.9 0 - 0.9 X10E9/L Eosinophils Absolute 0.4 0.0 - 0.4 X10E9/L Basophils Absolute 0.0 0.0 - 0.2 X10E9/L Bedside Glucose *Place/Obtain serum glucose if >500(>600 MRH) per glucometer. Collection Time: 12/28/23 6:46 AM Result Value Ref Range Bedside glucose 135 (H) 65 - 99 mg/dL Radiology Echo complete W/O contrast Result Date: 12/27/2023 Left Ventricle: Systolic function is normal with an ejection fraction of 55-60%. Aortic Valve: There is no regurgitation or stenosis. Mitral Valve: There is mild regurgitation. There is no significant mitral valve stenosis. Mobile echogenic density on posterior leaflet of the mitral valve may be mobile calcific/degenerative disease or vegetation. further evaluation with EDITH would be helpful if clinically indicated. HOSPITAL PROBLEM LIST Principal Problem: Cellulitis Active Problems: Chronic atrial fibrillation ([facility]) Diastolic heart failure ([facility]) Essential hypertension Mixed hyperlipidemia Type 2 diabetes mellitus with obesity ([facility] [place] [place]) Venous ulcer of left lower extremity without varicose veins ([facility] [place] [place]) Venous ulcer of right lower extremity without varicose veins ([facility]) Open wound of both lower extremities Lymphedema ASSESSMENT & PLAN Cellulitis Venous ulcer of bilateral lower extremities Vascular surgery, Wound care and hyperbaric Medicine, and Infectious Disease consulted WBC 13.2 on admission, currently 8.4 Rapid lactate 1.5 12/23 blood cultures x2 show NGTD 12/23 Superficial wound culture showed many mixed Gram-positive and Gram-negative organisms, >25 WBC UA negative; UC not sent; Legionella/S. Pseudomonae negative Cefepime and vancomycin discontinued per Infectious Disease, currently on Unasyn 10/[address] Kiran Pain control with oxycodone q.4 hours PRN, fentanyl and Dilaudid for breakthrough pain only Dressing changes per vascular orders- please premedicate prior to dressing changes We will defer need for further cardiac imaging to infectious disease recommendation and vascular surgery recommendations for patient to undergo hyperbaric oxygen therapy Type 2 diabetes mellitus A1c 6.5 in August 2023 Recheck A1c 7.3 Insulin sliding scale AC/HS Continue consistent carb diet Atrial fibrillation Diastolic heart failure Hypertension Hyperlipidemia Cardiology consulted Currently in atrial fibrillation, rate controlled Last echo in January of 2022 with normal ventricular systolic function, LVEF 55 to 60%, mild mitral regurgitation, mildly elevated right-sided pressures, no pericardial effusion, moderate biatrial dilatation. BNP 27 Repeat echo obtained prior to hyperbaric oxygen therapy- showed LVEF 55-60 present, mild MR, Mobile echogenic density on posterior leaflet of the mitral valve may be mobile calcific/degenerative disease or vegetation Continue Lasix, Lipitor, Imdur Switched from carvedilol to Lopressor for better rate control Low suspicion for endocarditis per Cardiology Supratherapeutic INR- resolved INR on admission to [place] 6.2 Current INR within range Pharmacy to dose warfarin DVT/VTE prophylaxis: SCD's and pharmacologic prophylaxis, warfarin, continue home dose. GI prophylaxis: add pantoprazole. PT/OT to evaluate and treat. DC planning: TBD. Sushma Wong, STEPHANIE-TERMITE CONTROL REPRESENTATIVE 12/28/2023 8:31 AM [facility] (all facilities): Message rounding KHAI in [place] or page through [employer]. 7PM-7AM ([facility], [facility] Psychiatry and Inpatient Rehab): Page Night KHAI, [phone]. 7PM-7AM ([facility], [place], [place] and [facility] Rehab): Page on-call KHAI, . uSshma Wong APRN-TERMITE CONTROL REPRESENTATIVE 12/28/23 8925 Patient seen and examined Interviewed and any questions answered All labs , xrays reviewed Clinical assessment and decisions made by myself in entirety Discussed case with team Agree with above assessment and plan Electronically signed by: FRANCHESKA FELIPE MD, 12/28/2023 6:49 PM [facility] [address] [place] [address] (P): [phone] (F): [phone] NUTRITION ADULT INITIAL EVALUATION NUTRITION ASSESSMENT: Reason to be seen: Database trigger for unintentional weight loss 10 lbs or more, intakes less than 50% of normal over last 2 weeks, and pressure ulcer or non-healing wounds. Patient History: Admit Diagnosis: Patient Active Problem List Diagnosis Chronic atrial fibrillation ([facility]) Cellulitis, unspecified cellulitis site Diastolic heart failure ([facility]) Essential hypertension Mixed hyperlipidemia Type 2 diabetes mellitus with obesity ([facility]) Cellulitis Venous ulcer of left lower extremity without varicose veins ([facility]) Venous ulcer of right lower extremity without varicose veins ([facility]) Open wound of both lower extremities Lymphedema Past Medical History: Past Medical History: Diagnosis Date Angina pectoris ([facility]) Arthritis Atrial fibrillation ([facility]) Chronic kidney disease kidney stones COPD (chronic obstructive pulmonary disease) ([facility]) Coronary artery disease Diabetes mellitus type 2, controlled ([facility]) Hyperlipidemia Hypertension Migraines Myocardial infarction ([facility]) x2 Obesity Pneumonia Shortness of breath Visual impairment glasses Past Surgical History: Past Surgical History: Procedure Laterality Date ABDOMINAL SURGERY complete abdominoplasty APPENDECTOMY CARDIAC CATHETERIZATION LAD stents x2 CARDIAC ELECTROPHYSIOLOGY MAPPING AND ABLATION CHOLECYSTECTOMY HERNIA REPAIR KNEE ARTHROSCOPY Bilateral LITHOTRIPSY MANIPULATION SHOULDER Left 06/19/2018 Performed by Jr Kendy Renee DO at [facility] Social/ Cognitive/ Economic: from home. Brief Clinical Summary: PMH significant for CKD, COPD, CAD, T2DM, HLD, HTN, cholecystectomy. Patient presented from outside hospital for lymphedema with drainage from wounds. Patient with cellulitis. Biochemical Data, Medical Tests, and Procedures: 2/2 OR; debridement of thigh/knee/calf. Labs: Results from last 3 days Lab Units 12/27/23 0505 12/26/23 0425 12/25/23 0420 SODIUM mmol/L 141 138 136 POTASSIUM mmol/L 4.2 5.2* 4.6 CHLORIDE mmol/L 111* 110* 111* CO2 mmol/L 25 24 18* BUN mg/dL 28* 36* 41* CREATININE mg/dL 0.94 0.81 1.01 CALCIUM mg/dL 7.7* 8.0* 8.1* ALBUMIN g/dL 2.1* 2.3* 2.2* ALK PHOS U/L 184* 208* 243* ALT U/L 56* 73* 101* AST U/L 28 36 69* Results from last 7 days Lab Units 12/27/23 1155 12/27/23 0754 12/27/23 0505 12/26/23 2105 12/26/23 1630 12/26/23 1213 12/26/23 0747 BEDSIDE GLUCOSE mg/dL 107* 120* -- 201* 222* 146* 103* GLUCOSE mg/dL -- -- 112* -- -- -- -- Results from last 3 days Lab Units 12/27/23 0505 12/26/23 0425 12/25/23 0420 WBC X10E9/L 10.6 9.3 11.7* HEMOGLOBIN g/dL 13.5 14.0 14.3 HEMATOCRIT % 39.9 41.1 43.1 PLATELETS X10E9/L 172 139* 164 MCV fL 92 91 92 Results from last 3 days Lab Units 12/27/23 0505 12/26/23 0425 12/25/23 0420 MAGNESIUM mg/dL 1.5* 1.5* 1.6* Results from last 3 days Lab Units 12/27/23 0505 12/26/23 0425 12/25/23 0420 TOTAL BILIRUBIN mg/dL 1.2 1.2 1.3* Lab Results Component Value Date HGBA1C 7.3 (H) 12/26/2023 Lab Results Component Value Date CHOL 123 (L) 01/28/2023 Lab Results Component Value Date CHDL 3.8 01/28/2023 Lab Results Component Value Date HDL 32 (L) 01/28/2023 Lab Results Component Value Date LDLCALC 62 01/28/2023 Lab Results Component Value Date TRIG 147 01/28/2023 Lab Results Component Value Date VERYLOWLIP 29 01/28/2023 Comments (labs): elevated chloride, elevated BUN, low calcium, elevated LFTs, low magnesium. Medications/ Parenteral: Antibiotics, imdur, magnesium, oxide, oxycodone, protonix, coumadin. Medications Prior to Admission Medication Sig Dispense Refill Last Dose aspirin 81 mg Take 1 tablet (81 mg total) by mouth in the morning. atorvastatin (LIPITOR) 80 mg tablet Take 1 tablet (80 mg total) by mouth in the morning. carvedilol (COREG) 12.5 mg tablet Take 2 tablets (25 mg total) by mouth in the morning and 2 tablets (25 mg total) in the evening. Take with meals. furosemide (LASIX) 20 mg tablet Take 1 tablet (20 mg total) by mouth every other day. glyBURIDE (DIABETA) 2.5 mg tablet Take 1 tablet (2.5 mg total) by mouth daily with breakfast. isosorbide mononitrate (IMDUR) 60 mg 24 hr tablet Take 1 tablet (60 mg total) by mouth daily. metFORMIN (GLUCOPHAGE) 500 mg tablet Take 2 tablets (1,000 mg total) by mouth in the morning and 2 tablets (1,000 mg total) in the evening. Take with meals. warfarin (COUMADIN) 5 mg tablet Take 1-1.5 tablets (5-7.5 mg total) by mouth in the evening. as directed by Cielo BELTRAN (Medication Therapy Management). (Patient taking differently: Take 1-1.5 tablets (5-7.5 mg total) by mouth in the evening. Take 5mg on Saturday, Saturday, . Take 7.5mg on Saturday, Saturday, Saturday, Saturday..) 135 tablet 1 candesartan (ATACAND) 16 mg tablet Take 16 mg by mouth daily. (Patient not taking: Reported on 12/23/2023) clopidogrel (PLAVIX) 75 mg tablet Take 75 mg by mouth daily. (Patient not taking: Reported on 12/23/2023) hydroCHLOROthiazide (HYDRODIURIL) 25 mg tablet Take 25 mg by mouth daily. (Patient not taking: Reported on 12/23/2023) insulin glargine (LANTUS) 100 unit/mL injection Inject 20 Units under the skin nightly. (Patient not taking: Reported on 12/23/2023) Current Facility-Administered Medications Medication Dose Route Frequency Provider Last Rate Last Admin acetaminophen (TYLENOL) tablet 650 mg 650 mg oral Q4H RENEEN Meche Quiñonez APRN-ERICKA alum-mag hydroxide-simeth (MAALOX) 200-200-20 mg/5 mL suspension 30 mL 30 mL oral PCHSP PATY Fortune atorvastatin (LIPITOR) tablet 80 mg 80 mg oral Daily PATY Schreiber 80 mg at 12/26/232111 carvediloL (COREG) tablet 25 mg 25 mg oral BID with meals Francheska Felipe MD cefEPime (MAXIPIME) 1,000 mg in sodium chloride 0.9 % 50 mL IVPB-MBP 1,000 mg intravenous Q8H Francheska Felipe MD Stopped at 12/27/23 0845 dextrose (GLUTOSE) 40 % gel 15 g 15 g oral PRN PATY Fortune dextrose 50 % in water (D50W) 50% solution 25 mL 25 mL intravenous PRN PATY Fortune fentaNYL (SUBLIMAZE) injection 50 mcg 50 mcg intravenous Q4H PRN PATY Schreiber furosemide (LASIX) tablet 20 mg 20 mg oral Every Other Day PATY Schreiber 20 mg at 12/26/232111 glucagon HCL injection 1 mg 1 mg intramuscular PRN PATY Fortune glyBURIDE (DIABETA) tablet 2.5 mg 2.5 mg oral Daily with breakfast PATY Schreiber insulin lispro (HumaLOG) injection 2-10 Units 2-10 Units subcutaneous TID with meals PATY Fortune 4 Units at 12/26/23 1639 insulin lispro (HumaLOG) injection 2-8 Units 2-8 Units subcutaneous Nightly PATY Fortune 2 Units at 12/26/232104 isosorbide mononitrate (IMDUR) 24 hr tablet 60 mg 60 mg oral Daily PATY Schreiber 60 mg at 12/26/232105 magnesium oxide (MAGOX) tablet 400 mg 400 mg oral Daily PRN Francheska Felipe MD 400 mg at 12/27/23 0925 magnesium sulfate IVPB 2000 mg/50 mL in iso-osmotic water (40 mg/mL premix) 2,000 mg intravenous PRN Meche D Caygill, RELOCATION COORDINATOR-TERMITE CONTROL REPRESENTATIVE magnesium sulfate IVPB 4000 mg/100 mL in iso-osmotic water (40 mg/mL premix) 4,000 mg intravenous PRN Meche Quiñonez APRN-ERICKA ondansetron ODT (ZOFRAN ODT) disintegrating tablet 4 mg 4 mg buccal Q6H PRN Meche Quiñonez APRN-ERICKA oxyCODONE (ROXICODONE) immediate release tablet 5 mg 5 mg oral Q4H PRN Sushma Wong APRN-ERICKA Or oxyCODONE (ROXICODONE) immediate release tablet 10 mg 10 mg oral Q4H PRN Sushma Wong, RELOCATION COORDINATOR-TERMITE CONTROL REPRESENTATIVE 10 mg at 12/27/23 1007 pantoprazole (PROTONIX) EC tablet 40 mg 40 mg oral QAM AC Meche Quiñonez RELOCATION COORDINATOR-TERMITE CONTROL REPRESENTATIVE 40 mg at 12/27/23 0447 potassium chloride (K-TAB,KLOR-CON) CR tablet 20-40 mEq 20-40 mEq oral PRN Meche Quiñonez APRN-ERICKA Or potassium chloride (KAYCIEL) 20 mEq/15 mL solution 20-40 mEq 20-40 mEq oral PRN Meche Quiñonez, RELOCATION COORDINATOR-TERMITE CONTROL REPRESENTATIVE sennosides-docusate sodium (SENOKOT-S) 8.6-50 mg 1 tablet 1 tablet oral Q12H PRN Meche Quiñonez APRN-ERICKA sodium chloride 0.9 % flush 3 mL 3 mL intravenous PRN Meche Quiñonez RELOCATION COORDINATOR-TERMITE CONTROL REPRESENTATIVE sodium chloride 0.9 % flush 3 mL 3 mL intravenous Q12H [facility] Meche Quiñonez APRN-TERMITE CONTROL REPRESENTATIVE 3 mL at 12/26/23 211 sodium chloride 0.9 % infusion 10 mL/hr intravenous Continuous PRN Meche Quiñonez, RELOCATION COORDINATOR-TERMITE CONTROL REPRESENTATIVE 10 mL/hr at 12/26/232100 10 mL/hr at 12/26/23 210 sodium hypochlorite (DAKIN'S 1/4 STRENGTH) 0.125 % external solution 1 Application 1 Application topical BID Hansel Carrasco MD vancomycin (VANCOCIN) IVPB 1750 mg in 500 mL sodium chloride 0.9% (CMPD premix) 15 mg/kg intravenous Q12H Francheska Felipe MD Stopped at 12/27/23 0323 warfarin (COUMADIN) tablet 5 mg 5 mg oral Daily Meche Quiñonez APRN-TERMITE CONTROL REPRESENTATIVE 5 mg at 12/26/23 1639 Nutrition Focused Physical Findings +wounds. Per RN flowsheets, last BM 12/23; net I/O +680 ml. Patient denied nausea, vomiting, and chewing and swallowing issues. Extremities, Muscles, and Bones A. Muscle Loss WNL. B. Loss of Subcutaneous Fat WNL. Skin (per nursing flow sheets): Skin Color: Pale (12/27/23799) Skin Temp: Warm; Dry (12/27/23799) Wound (per nursing flow sheets): Wound 12/23/23 1 Leg Left;Anterior-Site Assessment: Unable to assess (12/27/23799) Wound 12/23/23 2 Leg Right;Anterior-Site Assessment: Unable to assess (12/27/23799) Wound 12/23/23 3 Leg Left;Posterior-Site Assessment: Unable to assess (12/27/23799) Wound 12/23/23 4 Leg Right;Lateral-Site Assessment: Unable to assess (12/27/23799) Gastrointestinal (per nursing flow sheets): Last BM Date: 12/23/23 (12/27/23799) Edema (per nursing flow sheets): RLE Edema: +2 (12/27/23799) LLE Edema: +2 (12/27/23799) Intake/ Output Last 24 hrs: Intake/Output Summary (Last 24 hours) at 12/27/2023 1215 Last data filed at 12/26/2023 2017 Gross per 24 hour Intake 440 ml Output -- Net 440 ml Food/Nutrition Related History: Diet History: Patient reported that he followed specific diets to help control his diabetes and INR (coumadin in use). Patient's usual intakes included tofu, couscous, notes, and quinoa. He would have 5-6 smaller meals daily to help control blood sugar. He had noticed he had poor appetite for 1 month. Nutrition Knowledge/Beliefs/Attitudes: Patient stated that he has worked with an outpatient dietitian to help manage his diabetes with success in reducing insulin use and decreasing number of medications. Allergies: Allergies Allergen Reactions Shellfish Derived Other (See Comments) Chills Albuterol Tachycardia Ciprofloxacin Hives Keflex [Cephalexin] Hives Diet/ Nutrition Order Review: Dietary Orders (From admission, onward) Start Ordered 12/27/23 0001 Adult diet NPO; Except medications Diet effective midnight Question Answer Comment Diet Type: NPO NPO Except: Except medications 12/26/23 1409 Diet Intakes: Currently NPO for procedure. Previously with 100% intakes. Oral Supplemental Intake/ Acceptance: None ordered at this time. Patient was agreeable to Tono BID when diet resumes. Anthropometrics: Ht Readings from Last 1 Encounters: 12/26/23 180.3 cm (5' 11 ) Wt Readings from Last 20 Encounters: 12/27/23 107.4 kg (236 lb 12.4 oz) 12/25/23 112 kg (246 lb 14.4 oz) 05/26/19 121.6 kg (268 lb) 06/19/18 121.6 kg (268 lb) 05/22/18 121.6 kg (268 lb) 02/05/18 119.7 kg (264 lb) Last 3 Weight Readings 12/26/23 0500 12/27/23 0527 Weight: 110.7 kg (244 lb 0.8 oz) 107.4 kg (236 lb 12.4 oz) Current Weight: 107.4 kg (2/2, bed scale) Admit Weight: 110.7 kg (2/1, Bed Scale) Usual Body Weight: Patient did not know; see trends above. [place] Body Weight: 78.2 kg Percent [place] Body Weight: >100% Weight Changes: Weight loss since admit. Patient reported 40 lb weight loss over 1 month. Body Mass Index: Body mass index is 33.02 kg/m . BMI Category: Obese class 1 (30.00- 34.99). Comparative Standards: Estimated Energy Needs: 0566-3048 kcals daily. Method and weight used: 30-35 kcal/kg IBW (78.2 kg). Estimated Protein Needs: 117-196 grams daily. Method and weight used: 1.5-2.5 g protein/kg IBW. Estimated Fluid Needs: 0336-2553 ml daily. Method weight used: 30-35 ml/kg IBW. Comments: Wound needs. Malnutrition Status: Malnutrition Present: Unable to diagnose due to discrepancy with weights. NUTRITION DIAGNOSIS: Intake Diagnosis: Inadequate oral intake (NI 2.1) related to increased nutrient needs (protein, vitamin C, zinc, glutamine, arginine) as evidenced by NPO status, wounds, reported weight loss and decreased appetite x1 month. NUTRITION INTERVENTIONS: Meals & snacks: Resume diet as soon as medically feasible. Supplements (medical food, vitamin or mineral): When diet resumes, add Tono BID to provide 90 kcal, 2.5 grams of protein, and 7 grams of arginine/glutamine per serving. Recommend that it is used BID for a minimum of 2-4 weeks. This will aide in wound healing. RECOMMENDATIONS: When diet resumes, please record % meals, snacks, and supplements. GOAL(S): Patient to meet estimated calorie and protein needs. NUTRITION MONITORING AND EVALUATION: weight and lab trends, I/Os, appetite, PO intakes, supplement acceptance, wound status, edema status, GI function, POC. RD will continue to follow for duration of admit; will remain available by consult for specific nutrition needs. MOE Ren, KARELY, LD Clinical Dietitian Direct Line Images from the original note were not included. [facility] MEDICINE [facility] MD Nadege Brunner, MD Mat Davis, MD Jemima Lewis, MD Bob Ball, MD Francheska Felipe, MD Roger Loja, MD Delmy Roger, MD Jayda Almendarez, TERMITE CONTROL REPRESENTATIVE Susan Ramírez, TERMITE CONTROL REPRESENTATIVE Sushila Sidhu, ERICKA Quiñonez, ERICKA De La Rosa, TERMITE CONTROL REPRESENTATIVE Antonina Boo, TERMITE CONTROL REPRESENTATIVE Arely Cadena, TERMITE CONTROL REPRESENTATIVE Jie Alexandre, TERMITE CONTROL REPRESENTATIVE Con Garcia, TERMITE CONTROL REPRESENTATIVE Annalisa Hagan, ERICKA Monzon, ERICKA Chavis, ERICKA Cortes, ERICKA Nielson, ERICKA Callaway, ERICKA Wong, ERICKA Maher, TERMITE CONTROL REPRESENTATIVE Bipin Turner, TERMITE CONTROL REPRESENTATIVE [facility] Medicine Progress Note Patient: Hipolito Daniels Date of : 1965 Room: B7/ PCP: SYDNEY GRIFFITH DO Admission date: 12/25/2023 10:08 PM Encounter date: 12/27/23 Hospital Day: 3 SUBJECTIVE Chief complaints: No chief complaint on file. Interval History: Status: stable. Patient seen and evaluated at bedside. Patient reports he was able to get some sleep overnight and his pain is currently well-controlled. He denies any systemic symptoms like fever and chills. He denies any chest pain, shortness on breath, or abdominal pain. Last dressing change was last night though he continues to have drainage through the dressings on both of his bilateral lower extremities- currently has Chux pads underneath them to collect the drainage which is malodorous. Reports he thinks he has sleep apnea so he did wear 2 L nasal cannula overnight last night so his alarms did not go off. He is requesting we add magnesium IV as an allergy in his chart because he states it feels like someone is putting Lava in my veins . I told him we could start on oral magnesium supplementation and I could place it as an intolerance in his chart. Plans for OR today for debridement of his bilateral lower extremities. Review of Systems Constitutional: Positive for fatigue. Negative for chills and fever. HENT: Negative for ear pain and sore throat. Eyes: Negative for pain and visual disturbance. Respiratory: Negative for cough and shortness of breath. Cardiovascular: Positive for leg swelling. Negative for chest pain and palpitations. Gastrointestinal: Negative for abdominal pain and vomiting. Genitourinary: Negative for dysuria and hematuria. Musculoskeletal: Positive for gait problem. Negative for arthralgias and back pain. Skin: Positive for color change and wound. Negative for rash. Neurological: Positive for weakness. Negative for seizures, syncope and numbness. Psychiatric/Behavioral: Negative for sleep disturbance. The patient is not nervous/anxious. All other systems reviewed and are negative. OBJECTIVE BP 100/68 Pulse 111 Temp 36.2 C (97.2 F) (Skin) Resp 14 Ht 180.3 cm (5' 10.98 ) Wt 107.4 kg (236 lb 12.4 oz) SpO2 95% BMI 33.04 kg/m Temp: [36.2 C (97.2 F)-36.9 C (98.5 F)] 36.2 C (97.2 F) Pulse: [111-119] 111 Resp: [12-20] 14 BP: (93-118)/(51-68) 100/68 SpO2: [93 %-95 %] 95 % O2 Device: Endotracheal tube O2 Flow Rate (L/min): [2 L/min] 2 L/min Intake/Output Summary (Last 24 hours) at 12/27/20231844 Last data filed at 12/26/20232016 Gross per 24 hour Intake 200 ml Output -- Net 200 ml Physical Exam Physical Exam Constitutional: General: He is not in acute distress. Appearance: He is well-developed. Eyes: Pupils: Pupils are equal, round, and reactive to light. Cardiovascular: Rate and Rhythm: Normal rate. Rhythm irregular. Heart sounds: Normal heart sounds. No murmur heard. Comments: Atrial fibrillation on monitor Unable to palpate DP/PT pulses- able to auscultate with Doppler Cap refill 2-3 seconds in bilateral lower extremities Pulmonary: Effort: Pulmonary effort is normal. Breath sounds: Normal breath sounds. No wheezing, rhonchi or rales. Abdominal: General: Bowel sounds are normal. Palpations: Abdomen is soft. There is no mass. Tenderness: There is no abdominal tenderness. Musculoskeletal: General: Tenderness (Bilateral lower extremities) present. Normal range of motion. Right lower leg: Edema present. Left lower leg: Edema present. Skin: General: Skin is warm and dry. Capillary Refill: Capillary refill takes 2 to 3 seconds. Findings: Erythema and wound present. No rash. Comments: Multiple wounds to bilateral lower extremities in various states- malodorous and weeping. Unable to assess wounds Bender as he does have bilateral lower extremity dressings in place which are not to be removed until OR today. Neurological: General: No focal deficit present. Mental Status: He is alert and oriented to person, place, and time. Sensory: No sensory deficit. Motor: Weakness (Bilateral lower extremities limited due to pain) present. Psychiatric: Mood and Affect: Mood normal. Behavior: Behavior normal. Medications Scheduled: ampicillin-sulbactam (UNASYN) IV, 3,000 mg, intravenous, Q6H atorvastatin, 80 mg, oral, Daily carvediloL, 25 mg, oral, BID with meals furosemide, 20 mg, oral, Every Other Day glyBURIDE, 2.5 mg, oral, Daily with breakfast insulin lispro, 2-10 Units, subcutaneous, TID with meals insulin lispro, 2-8 Units, subcutaneous, Nightly isosorbide mononitrate, 60 mg, oral, Daily pantoprazole, 40 mg, oral, QAM AC sodium chloride, 3 mL, intravenous, Q12H LUZ sodium chloride, 3 mL, intravenous, Q12H LUZ sodium hypochlorite, 1 Application, topical, BID warfarin, 5 mg, oral, Daily Infusions: lactated ringer's, 50 mL/hr, Last Rate: 50 mL/hr (12/27/23 1750) sodium chloride 0.9 %, 10 mL/hr, Last Rate: 10 mL/hr (12/26/232100) As Needed: acetaminophen alum-mag hydroxide-simeth dextrose dextrose 50 % in water (D50W) fentaNYL glucagon (human recombinant) lidocaine PF magnesium oxide magnesium sulfate magnesium sulfate ondansetron ODT oxyCODONE OR oxyCODONE potassium chloride OR potassium chloride sennosides-docusate sodium sodium chloride sodium chloride sodium chloride 0.9 % sodium chloride (bottle) sodium hypochlorite Allergies: Ciprofloxacin, Keflex [cephalexin], Albuterol, and Shellfish derived Code Status: Full Code Labs Recent Results (from the past 24 hour(s)) C-reactive protein Collection Time: 12/26/23 7:11 PM Result Value Ref Range CRP 14.2 (H) 0.000 - 0.744 mg/dL Erythrocyte Sedimentation Rate (ESR) Collection Time: 12/26/23 7:11 PM Result Value Ref Range Sed Rate 37 (H) 0 - 20 mm/h Hemoglobin A1c Collection Time: 12/26/23 7:11 PM Result Value Ref Range Hemoglobin A1C 7.3 (H) 4.4 - 5.6 % Average glucose 163 mg/dL B-type natriuretic peptide Collection Time: 12/26/23 7:11 PM Result Value Ref Range BNP 373 (H) <100.0 pg/mL Bedside Glucose *Place/Obtain serum glucose if >500(>600 MRH) per glucometer. Collection Time: 12/26/23 9:05 PM Result Value Ref Range Bedside glucose 201 (H) 65 - 99 mg/dL Legionella antigen, urine Collection Time: 12/27/23 1:35 AM Result Value Ref Range Legionella urine ag Negative Negative^Negative S Pneumoniae AG, urine Collection Time: 12/27/23 1:35 AM Result Value Ref Range S pneumoniae AG U Negative Negative^Negative Protime & INR Collection Time: 12/27/23 5:05 AM Result Value Ref Range Protime 18.7 (H) 9.8 - 13.2 sec Inr 1.6 (H) 0.8 - 1.1 Comprehensive metabolic panel Collection Time: 12/27/23 5:05 AM Result Value Ref Range Sodium 141 134 - 146 mmol/L Potassium, Bld 4.2 3.5 - 5.0 mmol/L Chloride 111 (H) 98 - 109 mmol/L CO2 25 22 - 32 mmol/L Anion gap 5 5 - 15 mmol/L BUN 28 (H) 5 - 23 mg/dL Creatinine 0.94 0.60 - 1.30 mg/dL Glucose 112 (H) 65 - 99 mg/dL Calcium 7.7 (L) 8.5 - 10.5 mg/dL Total Protein 5.0 (L) 6.0 - 8.0 g/dL Albumin 2.1 (L) 3.2 - 5.3 g/dL Alkaline Phosphatase 184 (H) 39 - 130 U/L AST 28 0 - 41 U/L ALT 56 (H) 0 - 40 U/L Total bilirubin 1.2 0.3 - 1.2 mg/dL eGFR (CKD-EPI)non-race dependent >90 >59 ml/min/1.73sq.m Magnesium Collection Time: 12/27/23 5:05 AM Result Value Ref Range Magnesium 1.5 (L) 1.8 - 2.6 mg/dL CBC auto differential Collection Time: 12/27/23 5:05 AM Result Value Ref Range White Blood Cells 10.6 4.0 - 11.0 X10E9/L RBC count 4.35 4.10 - 5.70 X10E12/L Hemoglobin 13.5 13.0 - 17.0 g/dL Hematocrit 39.9 39 - 49 % MCV 92 80 - 100 fL MCH 31.1 27 - 34 pg MCHC 33.9 32 - 36 g/dL RDW 15.1 (H) 11.5 - 15.0 % Platelets 172 150 - 450 X10E9/L MPV 8.5 7 - 12 fL % neutrophils 77.0 % % lymphocytes 8.2 % % monocytes 10.5 % % eosinophils 3.5 % % Basophils 0.8 % Neutrophils Absolute (A) 8.2 (H) 1.5 - 6.6 X10E9/L Lymphocytes Absolute 0.9 (L) 1.0 - 3.5 X10E9/L Monocytes Absolute 1.1 (H) 0 - 0.9 X10E9/L Eosinophils Absolute 0.4 0.0 - 0.4 X10E9/L Basophils Absolute 0.1 0.0 - 0.2 X10E9/L Bedside Glucose *Place/Obtain serum glucose if >500(>600 MRH) per glucometer. Collection Time: 12/27/23 7:54 AM Result Value Ref Range Bedside glucose 120 (H) 65 - 99 mg/dL Bedside Glucose *Place/Obtain serum glucose if >500(>600 MRH) per glucometer. Collection Time: 12/27/23 11:55 AM Result Value Ref Range Bedside glucose 107 (H) 65 - 99 mg/dL Vancomycin, trough Collection Time: 12/27/23 12:00 PM Result Value Ref Range Vancomycin trough 23.6 (H) 5.0 - 20.0 ug/mL Bedside Glucose *Place/Obtain serum glucose if >500(>600 MRH) per glucometer. Collection Time: 12/27/23 4:38 PM Result Value Ref Range Bedside glucose 99 65 - 99 mg/dL Radiology Echo complete W/O contrast Result Date: 12/27/2023 Left Ventricle: Systolic function is normal with an ejection fraction of 55-60%. Aortic Valve: There is no regurgitation or stenosis. Mitral Valve: There is mild regurgitation. There is no significant mitral valve stenosis. Mobile echogenic density on posterior leaflet of the mitral valve may be mobile calcific/degenerative disease or vegetation. further evaluation with EDITH would be helpful if clinically indicated. HOSPITAL PROBLEM LIST Principal Problem: Cellulitis Active Problems: Chronic atrial fibrillation ([facility]) Diastolic heart failure ([facility]) Essential hypertension Mixed hyperlipidemia Type 2 diabetes mellitus with obesity ([facility]) Venous ulcer of left lower extremity without varicose veins ([facility]) Venous ulcer of right lower extremity without varicose veins ([facility]) Open wound of both lower extremities Lymphedema ASSESSMENT & PLAN Cellulitis Venous ulcer of bilateral lower extremities Vascular surgery, Wound care and hyperbaric Medicine, and Infectious Disease consulted WBC 13.2 on admission, currently 10.6 Rapid lactate 1.5 12/23 blood cultures x2 show NGTD 12/23 Superficial wound culture showed many mixed Gram-positive and Gram-negative organisms, >25 WBC UA negative; UC not sent; Legionella/S. Pseudomonae negative Cefepime and vancomycin discontinued per Infectious Disease, started on Unasyn Pain control with oxycodone q.4 hours PRN, fentanyl for breakthrough pain only Dakin's moist to moist dressings Surgical debridement with Dr. Kiran later today Type 2 diabetes mellitus A1c 6.5 in August 2023 Recheck A1c 7.3 BG has ranged between 99-201 in the last 24hrs Insulin sliding scale AC/HS Continue consistent carb diet Atrial fibrillation Diastolic heart failure Hypertension Hyperlipidemia Currently in atrial fibrillation, rate controlled Last echo in January of 2022 with normal ventricular systolic function, LVEF 55 to 60%, mild mitral regurgitation, mildly elevated right-sided pressures, no pericardial effusion, moderate biatrial dilatation. BNP 27 Continue Lasix, Lipitor, Coreg, Imdur Repeat echo obtained prior to hyperbaric oxygen therapy- showed LVEF 55-60 present, mild MR, Mobile echogenic density on posterior leaflet of the mitral valve may be mobile calcific/degenerative disease or vegetation We will consult Cardiology for CHF management and possible DEITH to rule out vegetation Supratherapeutic INR- resolved INR on admission to [place] 6.2 Current INR within range Pharmacy to dose warfarin DVT/VTE prophylaxis: SCD's and pharmacologic prophylaxis, warfarin, continue home dose. GI prophylaxis: add pantoprazole. PT/OT to evaluate and treat. DC planning: TBD. PATY Schreiber 12/27/2023 6:45 PM [facility] Medicine [facility] Hospitalists 7AM-7PM (all facilities): Message rounding KHAI in [place] or page through [employer]. 7PM-7AM ([facility], [facility] Psychiatry and Inpatient Rehab): Page Night KHAI, [phone]. 7PM-7AM ([facility] and [facility] Rehab): Page on-call KHAI, . PATY Schreiber 12/27/23 1904 Patient seen and examined Interviewed and any questions answered All labs , xrays reviewed Clinical assessment and decisions made by myself in entirety Discussed case with team Agree with above assessment and plan Electronically signed by: FRANCHESKA FELIPE MD, 12/27/2023 7:15 PM [facility] [address] [place] [address] (P): [phone] (F): [phone] Pharmacokinetic Consult - Follow Up Warfarin Dosing Hipolito Daniels is a 58 y.o. male for whom pharmacy has been consulted for warfarin dosing and monitoring. Subjective Indication for treatment: Anticoag Therapy Indication: Cardiac dysrhythmia Goal INR: Target INR: 2 - 3 Current inpatient warfarin regimen: see below Current Hematologic Labs Results from last 7 days Lab Units 12/27/23 0505 12/26/23 0425 12/26/23 0010 12/25/23 0420 12/24/23 1253 12/23/23 0903 INR 1.6* 2.0* 2.0* 2.8* 4.5* 6.2* Warfarin Administrations (last 168 hours) Date/Time Action Medication Dose 12/26/23 1639 Given warfarin (COUMADIN) tablet 5 mg 5 mg Assessment INR currently: subtherapeutic Drug-drug interactions: cefepime Drug-disease state interactions: obesity, DM2, CHF, low albumin Plan RX Anticoag Warfarin IP dose plan: Continue current warfarin regimen of 5 mg daily. Pharmacist will continue to follow patient's clinical progress daily. Mini Donnelly RPH, PharmD Ext [phone] Pharmacokinetic Consult - Vancomycin Dosing Hipolito Daniels is a 58 y.o. male for whom pharmacy has been consulted for vancomycin dosing for uncomplicated skin and soft tissue infection. Relevant clinical data and objective history reviewed: Results from last 7 days Lab Units 12/26/23 0425 12/25/23 0420 12/24/23 0457 12/23/23 0903 CREATININE mg/dL 0.81 1.01 1.16 1.17 BUN mg/dL 36* 41* 52* 82* WBC X10E9/L 9.3 11.7* 12.0* 13.2* HEMOGLOBIN g/dL 14.0 14.3 15.9 16.8 HEMATOCRIT % 41.1 43.1 46.7 50.1* MCV fL 91 92 92 92 Estimated Creatinine Clearance: 104.6 mL/min (by C-G formula based on SCr of 0.81 mg/dL). I/O last 3 completed shifts: In: - Out: 700 [Urine:700] Renal function assessment: Recovering from JUAN Temp Readings from Last 3 Encounters: 12/26/23 36.7 C (98 F) (Oral) 12/25/23 36.9 C (98.4 F) (Oral) 06/19/18 36.2 C (97.2 F) (Temporal) Baseline culture/source/susceptibility: Microbiology Results Procedure Component Value Units Date/Time Blood culture [[id number]] Collected: 12/23/23 0903 Specimen: Blood Updated: 12/25/23 1323 Specimen Notes RIGHT HAND Culture NO GROWTH 2 DAYS Blood culture [[id number]] Collected: 12/23/23 0850 Specimen: Blood Updated: 12/25/23 1323 Specimen Notes LEFT HAND Culture NO GROWTH 2 DAYS Wound culture superficial includes gram stain [[id number]] Collected: 12/23/23 0835 Specimen: Wound Swab Updated: 12/25/23 0902 Gram Stain Result >25 WHITE BLOOD CELLS/LPF 1 to 9 SQUAMOUS EPITHELIAL CELLS/LPF MANY GRAM NEGATIVE RODS MANY GRAM POSITIVE COCCI MANY GRAM POSITIVE RODS RESEMBLING DIPHTHEROIDS Culture MANY MIXED GRAM POSITIVE AND GRAM NEGATIVE ORGANISMS NO STAPHYLOCOCCUS AUREUS ISOLATED NO PSEUDOMONAS AERUGINOSA ISOLATED NO BETA HEMOLYTIC STREPTOCOCCI ISOLATED Assessment/Plan The patient will be started on vancomycin utilizing scheduled dosing based on actual body weight. Baseline risks associated with therapy include: pre-existing renal impairment and concomitant nephrotoxic medications. Will initiate dose at 1750 mg IV every 12 hours. Pharmacy will also follow closely for s/sx of nephrotoxicity and infusion reactions. Serum creatinine will be ordered per policy. Obtain trough 30 minutes prior to 5th dose. Due to infection severity, will target a trough of 10-15 ug/mL. Pharmacy will continue to follow and adjust as needed based on the patient's clinical status. Mini Donnelly [facility], PharmD Ext [phone] [facility] Department of Pharmacy Pharmacist to Physician Communication The dose of cefepime for SSTI has been changed to 1 gram every 8 hours per the [facility] approved renal dosing guidelines, based on an estimated creatinine clearance is 104.6 mL/min (by C-G formula based on SCr of 0.81 mg/dL). Thank you, Mini Donnelly Radha, PharmD Ext [phone] Pharmacokinetic Consult - Anticoagulation Dosing Hipolito Daniels is a 58 y.o. male for whom pharmacy has been consulted for warfarin dosing and monitoring. Indication for treatment: AFib Current Hematologic Labs Lab Results Component Value Date Inr 2.0 (H) 12/26/2023 Inr 2.0 (H) 12/26/2023 Inr 2.8 (H) 12/25/2023 Lab Results Component Value Date ALT 73 (H) 12/26/2023 Warfarin Administrations (last 168 hours) None Subjective Anticoag Therapy Indication: Cardiac dysrhythmia Target INR: 2 - 3 Asessment Bleeding Risks: Drug-drug interactions;Diabetes mellitus Interacting Medication(s): home meds: asa, clopidogrel Plan Holding Warfarin Dose?: Not holding Bridging Agent in Conjunction With Warfarin? : No Follow-Up Labs: Daily INR per protocol;CBC per protocol Patient Education (with patient/family): On HOOK TENDER - not needed Will change dose from PMH to 5 mg daily. Will continue to follow patient's clinical progress daily. Mini Donnelly RPH, PharmD Ext [phone] documented in this encounter [facility] 01-01-2024 Consult note Formatting of th is note is different from the original. Pharmacokinetic Consult - Follow Up Warfarin Dosing Hipolito Daniels is a 58 y.o. male for whom pharmacy has been consulted for warfarin dosing and monitoring. Subjective Indication for treatment: Anticoag Therapy Indication: Cardiac dysrhythmia Goal INR: Target INR: 2 - 3 Current inpatient warfarin regimen: 5 mg daily Current Hematologic Labs Results from last 7 days Lab Units 01/01/24 0442 12/31/23 0506 12/30/23 0503 12/29/23 0513 12/28/23 0502 12/27/23 0505 12/26/23 0425 12/26/23 0010 INR 2.5* 2.2* 2.1* 2.1* 1.9* 1.6* 2.0* 2.0* Warfarin Administrations (last 168 hours) Date/Time Action Medication Dose 12/31/23 1808 Given warfarin (COUMADIN) tablet 5 mg 5 mg 12/30/23 1755 Given warfarin (COUMADIN) tablet 5 mg 5 mg 12/29/23 1550 Given warfarin (COUMADIN) tablet 5 mg 5 mg 12/28/23 1533 Given warfarin (COUMADIN) tablet 5 mg 5 mg 12/26/23 1639 Given warfarin (COUMADIN) tablet 5 mg 5 mg Assessment INR currently: therapeutic Drug-drug interactions: duloxetine, Unasyn stopped 2/6 PM Drug-disease state interactions: obese, DM, CHF, thrombocytopenia, hypoalbuminemia Other pertinent information: supratherapeutic INR upon admission of 6.2; home regimen- 5 mg TRSun and 7.5 mg AOD Plan RX Anticoag Warfarin IP dose plan: INR is 2.5 today. Will continue 5 mg daily. Pharmacist will continue to follow patient's clinical progress daily. Lisseth Peña RPH Pharmacokinetic Consult - Follow Up Warfarin Dosing Hipolito Daniels is a 58 y.o. male for whom pharmacy has been consulted for warfarin dosing and monitoring. Subjective Indication for treatment: Anticoag Therapy Indication: Cardiac dysrhythmia Goal INR: Target INR: 2 - 3 Current inpatient warfarin regimen: 5mg daily Current Hematologic Labs Results from last 7 days Lab Units 12/31/23 0506 12/30/23 0503 12/29/23 0513 12/28/23 0502 12/27/23 0505 12/26/23 0425 12/26/23 0010 12/25/23 0420 12/24/23 1253 INR 2.2* 2.1* 2.1* 1.9* 1.6* 2.0* 2.0* 2.8* 4.5* Warfarin Administrations (last 168 hours) Date/Time Action Medication Dose 12/30/23 1755 Given warfarin (COUMADIN) tablet 5 mg 5 mg 12/29/23 1550 Given warfarin (COUMADIN) tablet 5 mg 5 mg 12/28/23 1533 Given warfarin (COUMADIN) tablet 5 mg 5 mg 12/26/23 1639 Given warfarin (COUMADIN) tablet 5 mg 5 mg Assessment INR currently: therapeutic Drug-drug interactions: asa, clopidogrel, Unasyn Drug-disease state interactions: dm2, obesity, CHF, thrombocytopenia, hypoalbuminemia. Other pertinent information: Presented with supratherapeutic INR=6.2 on admission. INR has since stabilized and is currently therapeutic. Home regimen is 5mg Jose,T,R; 7.5mg AOD. Will keep dose at 5mg daily for now. Plan RX Anticoag Warfarin IP dose plan: Continue current warfarin regimen of 5 mg daily. Pharmacist will continue to follow patient's clinical progress daily. Roshan Chapa RPH Ext [phone] Associated Order(s): IP CONSULT TO CARDIOLOGY Images from the original note were not included. [facility] [address] [place] [address] CONSULT NOTE Hipolito Daniels PCP: SYDNEY GRIFFITH DO Date of Admission: 12/25/2023 Date of Consultation: 12/27/2023 9:33 PM Consult for CHf possible need for EDITH SUBJECTIVE History of Present Illness: Hipolito Daniels is a 58 y.o. male who was admitted to [facility] after being transferred from [facility] for leg wounds. The patient has a history of CAD, stenting to the LAD in 2009 and and 2012, HF with improved EF most recent echo demonstrates 55-60%, dismal atrial fibrillation on long-term anticoagulation with warfarin, history of ablation in 2013, COPD, diabetes mellitus, hyperlipidemia, obesity, chronic dyspnea, CKD chronic bilateral lower extremity edema wounds on bilateral lower extremities developed into sores weeping and went to the ER in [place] for evaluation. Patient was transferred to [facility] for further care and management under the medicine service. Infectious Disease was consulted were negative official wounds showed Gram-negative rods but no Pseudomonas vascular surgery was consulted underwent debridement plan is for HBO Patient states he has had significant lower extremity edema for about the last 2 weeks developed a dry cough which was consistent with his heart failure he then developed wounds about few days ago so he came to [place] [facility]. He reports he edema all the way up to his abdomen including his scrotum. He reports that the edema went away on its own without taking any extra diuretics and he reports taking Lasix every other day Previous Medical History: Past Medical History: Diagnosis Date Angina pectoris ([facility] [place] [place]) Arthritis Atrial fibrillation ([facility] [place] [place]) Chronic kidney disease kidney stones COPD (chronic obstructive pulmonary disease) ([facility] [place] [place]) Coronary artery disease Dental disease Diabetes mellitus type 2, controlled ([facility] [place] [place]) Hyperlipidemia Hypertension Migraines Myocardial infarction ([facility] [place] [place]) x2 Obesity Pneumonia Rash Shortness of breath Visual impairment glasses Previous Surgical History: Past Surgical History: Procedure Laterality Date ABDOMINAL SURGERY complete abdominoplasty APPENDECTOMY CARDIAC CATHETERIZATION LAD stents x2 CARDIAC ELECTROPHYSIOLOGY MAPPING AND ABLATION CHOLECYSTECTOMY HERNIA REPAIR KNEE ARTHROSCOPY Bilateral LITHOTRIPSY MANIPULATION SHOULDER Left 06/19/2018 Performed by Jr Kendy Renee DO at [facility] Allergies: Allergies Allergen Reactions Ciprofloxacin Hives Keflex [Cephalexin] Hives Albuterol Tachycardia Shellfish Derived Other (See Comments) Chills Magnesium Sulfate pain IV only- Patient reports it feels like someone is putting lava in my veins Hospital Meds: Current Facility-Administered Medications Medication Dose Route Frequency Provider Last Rate Last Admin acetaminophen (TYLENOL) tablet 650 mg 650 mg oral Q4H PRN Meche Quiñonez APRN-ERICKA alum-mag hydroxide-simeth (MAALOX) 200-200-20 mg/5 mL suspension 30 mL 30 mL oral [facility] Meche Quiñonez APRN-ERICKA ampicillin-sulbactam (UNASYN) 3,000 mg in sodium chloride 0.9 % 100 mL IVPB-MBP 3,000 mg intravenous Q6H Tru Belle MD atorvastatin (LIPITOR) tablet 80 mg 80 mg oral Daily PATY Schreiber 80 mg at 12/26/232111 carvediloL (COREG) tablet 25 mg 25 mg oral BID with meals Francheska Felipe MD dextrose (GLUTOSE) 40 % gel 15 g 15 g oral PRN PATY Fortune dextrose 50 % in water (D50W) 50% solution 25 mL 25 mL intravenous PRN PATY Fortune fentaNYL (SUBLIMAZE) injection 25 mcg 25 mcg intravenous Q5 Min PRN Elmer Henry MD fentaNYL (SUBLIMAZE) injection 50 mcg 50 mcg intravenous Q4H PRN PATY Schreiber fentaNYL (SUBLIMAZE) injection 50 mcg 50 mcg intravenous Q5 Min PRN Elmer Henry MD 50 mcg at 12/27/231950 furosemide (LASIX) tablet 20 mg 20 mg oral Every Other Day PATY Schreiber 20 mg at 12/26/232111 glucagon HCL injection 1 mg 1 mg intramuscular PRN PATY Fortune glyBURIDE (DIABETA) tablet 2.5 mg 2.5 mg oral Daily with breakfast PATY Schreiber HYDROmorphone (DILAUDID) injection 0.2 mg 0.2 mg intravenous Q5 Min PRN Elmer Henry MD HYDROmorphone (DILAUDID) injection 0.4 mg 0.4 mg intravenous Q5 Min PRN Elmer Henry MD 0.4 mg at 12/27/232019 HYDROmorphone (DILAUDID) injection 0.4 mg 0.4 mg intravenous Q5 Min PRN Elmer Henry MD insulin lispro (HumaLOG) injection 2-10 Units 2-10 Units subcutaneous TID with meals PATY Fortune 4 Units at 12/26/23 163 insulin lispro (HumaLOG) injection 2-8 Units 2-8 Units subcutaneous Nightly PATY Fortune 2 Units at 12/26/232104 isosorbide mononitrate (IMDUR) 24 hr tablet 60 mg 60 mg oral Daily PATY Schreiber 60 mg at 12/26/23 210 lactated ringers infusion 50 mL/hr intravenous Continuous Elmer Henry MD 50 mL/hr at 12/27/23 1750 Restarted at 12/27/23 1913 lidocaine PF (XYLOCAINE) 10 mg/mL (1 %) injection 1 mg 0.1 mL intradermal PRN Elmer Henry MD magnesium oxide (MAGOX) tablet 400 mg 400 mg oral Daily PRN Francheska Felipe MD 400 mg at 12/27/23 0925 naloxone (NARCAN) injection 0.1 mg 0.1 mg intravenous PRN Elmer Henry MD ondansetron ODT (ZOFRAN ODT) disintegrating tablet 4 mg 4 mg buccal Q6H PRN PATY Fortune oxyCODONE (ROXICODONE) immediate release tablet 5 mg 5 mg oral Q4H PRN Elmer Henry MD Or oxyCODONE (ROXICODONE) immediate release tablet 10 mg 10 mg oral Q4H PRN Elmer Henry MD pantoprazole (PROTONIX) EC tablet 40 mg 40 mg oral QAM AC Meche Quiñonez APRN-TERMITE CONTROL REPRESENTATIVE 40 mg at 12/27/23 0447 potassium chloride (K-TAB,KLOR-CON) CR tablet 20-40 mEq 20-40 mEq oral PRN Meche Quiñonez APRN-ERICKA Or potassium chloride (KAYCIEL) 20 mEq/15 mL solution 20-40 mEq 20-40 mEq oral PRN Meche Quiñonez APRN-ERICKA sennosides-docusate sodium (SENOKOT-S) 8.6-50 mg 1 tablet 1 tablet oral Q12H PRN Meche Quiñonez APRN-ERICKA sodium chloride 0.9 % flush 3 mL 3 mL intravenous PRN Meche Quiñonez APRN-ERICKA sodium chloride 0.9 % flush 3 mL 3 mL intravenous Q12H LUZ Meche Quiñonez APRN-TERMITE CONTROL REPRESENTATIVE 3 mL at 12/26/23 2110 sodium chloride 0.9 % flush 3 mL 3 mL intravenous PRN Elmer Hnery MD sodium chloride 0.9 % flush 3 mL 3 mL intravenous Q12H [facility] Elmer Henry MD sodium chloride 0.9 % infusion 10 mL/hr intravenous Continuous PRN PATY Fortune 10 mL/hr at 12/26/232100 10 mL/hr at 12/26/232100 sodium hypochlorite (DAKIN'S 1/4 STRENGTH) 0.125 % external solution 1 Application 1 Application topical BID Hansel Carrasco MD warfarin (COUMADIN) tablet 5 mg 5 mg oral Daily PATY Fortune 5 mg at 12/26/23 1639 Home Meds: Prior to Admission medications Medication Sig Start Date End Date Taking? Authorizing Provider aspirin 81 mg Take 1 tablet (81 mg total) by mouth in the morning. Yes Not In System Ref Prov atorvastatin (LIPITOR) 80 mg tablet Take 1 tablet (80 mg total) by mouth in the morning. Yes Not In System Ref Prov carvedilol (COREG) 12.5 mg tablet Take 2 tablets (25 mg total) by mouth in the morning and 2 tablets (25 mg total) in the evening. Take with meals. Yes Not In System Ref Prov furosemide (LASIX) 20 mg tablet Take 1 tablet (20 mg total) by mouth every other day. Yes Not In System Ref Prov glyBURIDE (DIABETA) 2.5 mg tablet Take 1 tablet (2.5 mg total) by mouth daily with breakfast. Yes Not In System Ref Prov isosorbide mononitrate (IMDUR) 60 mg 24 hr tablet Take 1 tablet (60 mg total) by mouth daily. Yes Not In System Ref Prov metFORMIN (GLUCOPHAGE) 500 mg tablet Take 2 tablets (1,000 mg total) by mouth in the morning and 2 tablets (1,000 mg total) in the evening. Take with meals. Yes Not In System Ref Prov warfarin (COUMADIN) 5 mg tablet Take 1-1.5 tablets (5-7.5 mg total) by mouth in the evening. as directed by Cielo BELTRAN (Medication Therapy Management). Patient taking differently: Take 1-1.5 tablets (5-7.5 mg total) by mouth in the evening. Take 5mg on Saturday, Saturday, . Take 7.5mg on Saturday, Saturday, Saturday, Saturday.. 12/16/23 Yes Kendy Laurent MD candesartan (ATACAND) 16 mg tablet Take 16 mg by mouth daily. Patient not taking: Reported on 12/23/2023 Not In System Ref Prov clopidogrel (PLAVIX) 75 mg tablet Take 75 mg by mouth daily. Patient not taking: Reported on 12/23/2023 Not In System Ref Prov hydroCHLOROthiazide (HYDRODIURIL) 25 mg tablet Take 25 mg by mouth daily. Patient not taking: Reported on 12/23/2023 Not In System Ref Prov insulin glargine (LANTUS) 100 unit/mL injection Inject 20 Units under the skin nightly. Patient not taking: Reported on 12/23/2023 Not In System Ref Prov Social History: TOBACCO: reports that he has been smoking cigarettes. He has been smoking an average of 1 pack per day. He has never used smokeless tobacco. ETOH: reports no history of alcohol use. DRUGS: reports current drug use. Frequency: 3.00 times per week. Drug: Marijuana. OCCUPATION: Family History: Family History Problem Relation Age of Onset Heart disease Mother Diabetes Mother Heart disease Father Heart attack Father Review of Systems: Constitutional: there has been no unanticipated weight loss, no change in energy level, sleep pattern, or activity level. Eyes: No visual changes or diplopia, no scleral icterus. ENT: No Headaches, hearing loss or vertigo, no mouth sores or sore throat. Cardiovascular: No chest pain, dyspnea on exertion, palpitations or loss of consciousness, no cough, hemoptysis, pleuritic pain, or phlebitis. Respiratory: Positive drop cough denies wheezing, no sputum production, no hematemesis. Gastrointestinal: No abdominal pain, appetite loss, blood in stools, no change in bowel or bladder habits. Genitourinary: No dysuria, trouble voiding, or hematuria Musculoskeletal: No gait disturbance, weakness or joint complaints Integumentary: No rash or pruritis Neurological: No headache, diplopia, change in muscle strength, numbness or tingling, no change in gait, balance, coordination, mood, affect, memory, mentation, behavior Psychiatric: No anxiety, or depression Endocrine: No temperature intolerance, no excessive thirst, fluid intake, or urination, no tremor Hematologic/Lymphatic: No abnormal bruising or bleeding, blood clots or swollen lymph nodes Allergic/Immunologic: No nasal congestion or hives OBJECTIVE LAST LABS: CBC: Results from last 7 days Lab Units 12/27/23 0505 12/26/23 0425 12/25/23 0420 WBC X10E9/L 10.6 9.3 11.7* HEMOGLOBIN g/dL 13.5 14.0 14.3 HEMATOCRIT % 39.9 41.1 43.1 MCV fL 92 91 92 PLATELETS X10E9/L 172 139* 164 BMP: Results from last 7 days Lab Units 12/27/23 0505 12/26/23 0425 12/25/23 0420 SODIUM mmol/L 141 138 136 POTASSIUM mmol/L 4.2 5.2* 4.6 CHLORIDE mmol/L 111* 110* 111* CO2 mmol/L 25 24 18* BUN mg/dL 28* 36* 41* CREATININE mg/dL 0.94 0.81 1.01 CALCIUM mg/dL 7.7* 8.0* 8.1* MAGNESIUM mg/dL 1.5* 1.5* 1.6* PT/INR: Results from last 7 days Lab Units 12/27/23 0505 12/26/23 0425 12/26/23 0010 PROTIME sec 18.7* 22.2* 23.2* INR 1.6* 2.0* 2.0* APTT: MAG: Results from last 7 days Lab Units 12/27/23 0505 12/26/23 0425 12/25/23 0420 MAGNESIUM mg/dL 1.5* 1.5* 1.6* D Dimer: Troponin I ProBNP Results from last 7 days Lab Units 12/26/23 1911 12/23/23 0903 BNP pg/mL 373* 27 Lipid Panel: Lab Results Component Value Date CHOL 123 (L) 01/28/2023 TRIG 147 01/28/2023 HDL 32 (L) 01/28/2023 Liver Panel: No results found for: ALB HgA1C: Lab Results Component Value Date HGBA1C 7.3 (H) 12/26/2023 ABG: CV HISTORY: ECHO: Echo complete W/O contrast Result Date: 12/27/2023 Left Ventricle: Systolic function is normal with an ejection fraction of 55-60%. Aortic Valve: There is no regurgitation or stenosis. Mitral Valve: There is mild regurgitation. There is no significant mitral valve stenosis. Mobile echogenic density on posterior leaflet of the mitral valve may be mobile calcific/degenerative disease or vegetation. further evaluation with EDITH would be helpful if clinically indicated. STRESS: No results found. HOLTER: No results found. CARDIAC CATH: No results found. CAROTID: No results found. CXR: X-ray chest 1 view Result Date: 12/23/2023 Clinical history: Leg swelling Views: 1 Comparison: 05/22/2018 Findings/Impression: 1. No acute infiltrate. No volume loss nor consolidation. There is no pleural effusion, pneumothorax, nor volume loss. Heart and mediastinal structures are unremarkable. Pulmonary vasculature stable. 2. No significant change Finalized by Jason Harrison MD on 12/23/2023 9:37 AM EKG: TELEMETRY: A fib PHYSICAL EXAM Admission Weight: Weight: 110.7 kg (244 lb 0.8 oz) I/O last 3 completed shifts: In: 780 [P.O.:680; IV Piggyback:100] Out: - Weight change: -3.3 kg (-7 lb 4.4 oz) Wt Readings from Last 3 Encounters: 12/27/23 107.4 kg (236 lb 12.4 oz) 12/25/23 112 kg (246 lb 14.4 oz) 05/26/19 121.6 kg (268 lb) Vitals: Vitals: 12/27/23202412/27/23203912/27/23204912/27/232054 BP: 100/67 93/64 97/55 Pulse: (!) 123 (!) 129 116 (!) 129 Resp: 17 17 16 16 Temp: 36 C (96.8 F) TempSrc: Skin SpO2: 97% 98% 97% 97% Weight: Height: Admit Weight Weight: 110.7 kg (244 lb 0.8 oz) Last 3 Weights Last 3 Weight Readings 12/26/23 0500 12/27/23 0527 12/27/23 1700 Weight: 110.7 kg (244 lb 0.8 oz) 107.4 kg (236 lb 12.4 oz) 107.4 kg (236 lb 12.4 oz) Body mass index is 33.04 kg/m . INTAKE/OUTPUT I/O last 3 completed shifts: In: 780 [P.O.:680; IV Piggyback:100] Out: - Intake/Output Summary (Last 24 hours) at 12/27/20232132 Last data filed at 12/27/2023 1913 Gross per 24 hour Intake 700 ml Output -- Net 700 ml General appearance: Alert oriented and cooperative, in no acute distress Skin: Warm and dry to touch Head: Normocephalic, without obvious abnormality, atraumatic Eyes: Conjunctivae unremarkable, clear Neck: No JVD, no carotid bruit, neck supple, trachea midline Lungs: Diminished to ausculation bilaterally, no use of accessory muscles. Heart:: Irregular with normal S1 and S2 , no murmurs and no gallops. Abdomen: Soft, non-tender, bowel sounds normal Extremities: 2 to 3+ edema Neurologic: Oriented to time, person and place, affect appropriate, no focal/major motor or sensory defects noted Psychiatric: Appropriate mood, memory and judgment ASSESSMENT Paroxysmal atrial fibrillation Rate poorly controlled in the 110-1 20s INR 1.6 History of CKD Hypo albuminemia Hypo magnesium Will need to replace with sliding scale Acute on chronic HF PE F Mildly elevated BNP at 373 [place] vessel coronary artery disease No angina Prior stents LAD Chronic lymphedema Obesity BMI 33 Diabetes mellitus Hemoglobin A1c 7.3 PLAN No need for EDITH at this time blood cultures negative Chronic HFpE F - gentle diuresis Had not received yves all day will resume her heart rate controlled PATY AG This note was completed using a voice dancing teacher system. Every effort was made to ensure accuracy. However, inadvertent computerized dancing teacher errors may be present. PATY Ag 12/27/23 2425 I have personally performed a face to face diagnostic evaluation on this patient. I have reviewed the note authored by the advanced practice provider and agree with the history of present illness, past medical history, surgical history, meds, allergies, social history, family history, review of systems, exam and plan. I have reviewed current medications, lab values, and diagnostic testing. My findings are below. . History of Present Illness: 58 y.o. male presented with lower extremity wounds. He has a history of heart failure with recovered LV function and chronic lower extremity wounds as well as lymphedema. Patient underwent debridement and plan is for HBO. He has pain in his lower extremities. He also had a dry cough. He reports increasing edema and scrotal edema. No britni orthopnea. No PND. No chest pain or pressure. He was taking Lasix intermittently at home. Review of Systems: Constitutional: No Fevers/Chills, No recent weight gain weight loss, No fatigue. Cardiovascular: Per HPI Respiratory: No cough or wheezing, no sputum production. Gastrointestinal: No Nausea, Vomiting, Diarrhea, or Constipation. No melena or hematochezia. No hematemesis. All others negative except what is noted above and in my KHAI's note. Ten of 14 systems otherwise negative except as noted Physical Exam Vital Signs: Temp: [36 C (96.8 F)-36.9 C (98.5 F)] 36.5 C (97.7 F) Pulse: [111-145] 112 Resp: [12-33] 18 BP: (93-133)/(51-89) 97/62 SpO2: [79 %-98 %] 96 % O2 Device: Nasal cannula O2 Flow Rate (L/min): [2 L/min] 2 L/min Admission Weight: 110.7 kg (244 lb 0.8 oz) Constritutional: awake, no apparent distress Head: Normocephalic, atraumatic Eyes: Conjunctivae unremarkable, sclera anicteric Neck: No thyromegaly Respiratory: CTAB Cardiovascular: Irregular regular S1-S2 Gastrointestinal: Soft, non-tender. Bowel sounds normal. Extremities and back/Musculoskeletal: ++ edema, extremities warm Skin: no lower extremity rashes present Neurologic: Grossly normal. Moves all extremities. Psychiatric: Appropriate judgment EKG: Atrial fibrillation on EKG from 12/23/2023 Assessment: Lower extremity wounds/cellulitis and venous ulcers status post lower extremity debridement 12/27/2023 Edema, multifactorial with contributions from severe hypoalbuminemia and a component of acute on chronic heart failure with Recovered/preserved LV function coronary disease remote PCI to the LAD Lymphedema Obesity Diabetes mellitus hemoglobin A1c 7.3 Abnormal mitral valve with posterior mitral annular calcification and mobile echodensity along posterior leaflet, really only seen in parasternal long-axis views, blood cultures no growth today Atrial fibrillation likely persistent Plan: IV diuresis. Bulk of his edema is likely related to hypoalbuminemia, however. Reasonable to pursue transesophageal echocardiogram but would seem unlikely this is infected with negative blood cultures. However, appears extension off posterior mitral annular calcification. Will talk to him about this in more detail. Low clinical suspicion for endocarditis but does not appear artifact on PLAX views. Switch carvedilol to Lopressor for better rate control Associated Order(s): IP CONSULT TO INFECTIOUS DISEASES Images from the original note were not included. Division of Infectious Diseases - Initial Consult Note [facility] - Academic Team 1 During Business Hours: Please use Kare[employer] for communication. After Hours: Please call for our answering service. Patient name: Hipolito Daniels Patient Today's Date and Time: 12/27/2023, 2:11 PM Admission Date: 12/25/2023 Primary Care Physician: SYDNEY GRIFFITH DO Impression and Recommendations:: - bilateral lower extremity cellulitis , soft tissue infection. - bilateral lower extremity venous ulcers. - bacteremia ruled out. - no concern of osteomyelitis. Presented with 3-4 week history of bilateral lower leg wounds, progressive in nature, involving medial and lateral aspects, associated erythema, malodorous drainage, necrotic issues. Currently on IV vancomycin and cefepime.Currently undergoing wound care. Blood cultures negative, superficial wound culture showed Gram-positive cocci, Gram-negative rods but no Pseudomonas, staph aureus. Patient needs meticulous wound care, edema management with leg elevation, proper hygiene. We will deescalate IV antibiotic, discontinue IV vancomycin and cefepime, start IV Unasyn for polymicrobial growth and anaerobic coverage, follow up vascular surgery regarding incision and drainage , follow up surgical cultures once available.. -> hypertension, dyslipidemia, coronary artery disease. -> diabetes mellitus, associated neuropathy, CKD. -> chronic atrial fibrillation, diastolic heart failure. -> obesity, chronic obstructive pulmonary disease. Subjective Reason for consultation / Chief complaint:: Cellulitis and wound infection History of Present Illness We appreciate the opportunity to consult on Hipolito Daniels, a 58 y.o.-year-old male who was initially admitted on 12/25/2023. This patient has past medical history of hypertension, dyslipidemia, coronary artery disease, diabetes mellitus, neuropathy, CKD, AFib, diastolic heart failure, obesity, chronic obstructive pulmonary disease who presented with 3-4 week history of gradual onset wounds involving bilateral lower extremities, progressive in nature. Of note, patient has longstanding history of chronic insufficiency and lower extremity edema. Later on, patient also developed some drainage, redness and pain over bilateral lower extremity wounds. Patient denies any fever, chills at home. Patient denies other symptoms like headache, dizziness, shortness of breath, chest pain, palpitation, abdominal pain, diarrhea, urinary symptoms, back pain, joint pain. Patient was admitted outside facility, received broad-spectrum antibiotics. Later on, patient was transferred to [facility] for now on healing wound and vascular surgery evaluation. Infectious Disease was consulted for further antibiotic management. Patient was seen examined, no distress, hemodynamically stable and afebrile. Labs at baseline. Overall sign of inflammation improving of lower extremities. Patient is tolerating IV antibiotics. Denies any fever, chills. Pain is slightly improved. Past Medical History: Past Medical History: Diagnosis Date Angina pectoris ([facility] [place] [place]) Arthritis Atrial fibrillation ([facility] [place] [place]) Chronic kidney disease kidney stones COPD (chronic obstructive pulmonary disease) ([facility] [place] [place]) Coronary artery disease Diabetes mellitus type 2, controlled ([facility] [place] [place]) Hyperlipidemia Hypertension Migraines Myocardial infarction ([facility] [place] [place]) x2 Obesity Pneumonia Shortness of breath Visual impairment glasses Past Surgical History: Past Surgical History: Procedure Laterality Date ABDOMINAL SURGERY complete abdominoplasty APPENDECTOMY CARDIAC CATHETERIZATION LAD stents x2 CARDIAC ELECTROPHYSIOLOGY MAPPING AND ABLATION CHOLECYSTECTOMY HERNIA REPAIR KNEE ARTHROSCOPY Bilateral LITHOTRIPSY MANIPULATION SHOULDER Left 06/19/2018 Performed by Jr Kendy Renee DO at [facility] Medications: atorvastatin, 80 mg, oral, Daily carvediloL, 25 mg, oral, BID with meals [COMPLETED] cefepime (MAXIPIME) IV, 1,000 mg, intravenous, Once FOLLOWED BY cefepime (MAXIPIME) IV, 1,000 mg, intravenous, Q8H furosemide, 20 mg, oral, Every Other Day glyBURIDE, 2.5 mg, oral, Daily with breakfast insulin lispro, 2-10 Units, subcutaneous, TID with meals insulin lispro, 2-8 Units, subcutaneous, Nightly isosorbide mononitrate, 60 mg, oral, Daily pantoprazole, 40 mg, oral, QAM AC sodium chloride, 3 mL, intravenous, Q12H LUZ sodium hypochlorite, 1 Application, topical, BID vancomycin, 15 mg/kg, intravenous, Q12H warfarin, 5 mg, oral, Daily Social History: Social History Socioeconomic History Marital status: Spouse name: Not on file Number of children: Not on file Years of education: Not on file Highest education level: Not on file Occupational History Not on file Tobacco Use Smoking status: Every Day Packs/day: 1 Types: Cigarettes Smokeless tobacco: Never Substance and Sexual Activity Alcohol use: No Drug use: Yes Frequency: 3.0 times per week Types: Marijuana Comment: as needed for pain Sexual activity: Defer Other Topics Concern Not on file Social History Narrative Not on file Social Determinants of Health Financial Resource Strain: Low Risk (12/23/2023) Overall Financial Resource Strain (CARDIA) Difficulty of Paying Living Expenses: Not hard at all Food Insecurity: Food Insecurity Present (12/23/2023) Hunger Screening Food Insecurity - Worry: Sometimes True Food Insecurity - Inability: Sometimes True Transportation Needs: No Transportation Needs (12/23/2023) PRAPARE - Transportation Lack of Transportation (Medical): No Lack of Transportation (Non-Medical): No Physical Activity: Insufficiently Active (12/23/2023) Exercise Vital Sign Days of Exercise per Week: 2 days Minutes of Exercise per Session: 20 min Stress: No Stress Concern Present (12/23/2023) [place] [employer] - Occupational Stress Questionnaire Feeling of Stress : Only a little Social Connections: Socially Isolated (12/23/2023) Social Connection and Isolation Panel [NHANES] Frequency of Communication with Friends and Family: Three times a week Frequency of Social Gatherings with Friends and Family: Three times a week Attends Jew Services: Never Active Member of Clubs or Organizations: No Attends Club or Organization Meetings: Never Marital Status: Interpersonal Safety: Not At Risk (12/23/2023) Humiliation, Afraid, Rape, and Kick questionnaire Fear of Current or Ex-Partner: No Emotionally Abused: No Physically Abused: No Sexually Abused: No Housing Instability: Low Risk (12/23/2023) Housing Instability Housing Instability: No Family History: Family History Problem Relation Age of Onset Heart disease Mother Diabetes Mother Heart disease Father Heart attack Father Immunization History: Immunization History Administered Date(s) Administered COVID-19, mRNA, LNP-S, PF, 30mcg/0.3mL Dose 03/20/2021, 04/10/2021, 10/12/2021 Influenza, Injectable, Mdck, Preservative Free, Quad 09/08/2018, 01/28/2020 Pneumococcal Conjugate 13-Valent 10/20/2018 Allergies: Allergies Allergen Reactions Shellfish Derived Other (See Comments) Chills Albuterol Tachycardia Ciprofloxacin Hives Keflex [Cephalexin] Hives Review of Systems: General: No fevers or chills. Eyes: No double vision or blurry vision. ENT: No sore throat or runny nose. Cardiovascular: No chest pain or palpitations. Lung: No shortness of breath or cough. Abdomen: No nausea, vomiting, diarrhea, or abdominal pain. Genitourinary: No increased urinary frequency, or dysuria. Musculoskeletal: No muscle aches or pains. Hematologic: No bleeding or bruising. Neurologic: No headache, weakness, numbness, or tingling. Objective Physical Examination: BP 93/51 Pulse 118 Temp 36.8 C (98.2 F) (Oral) Resp 12 Ht 180.3 cm (5' 11 ) Wt 107.4 kg (236 lb 12.4 oz) SpO2 94% BMI 33.02 kg/m Temperature Range: Temp: 36.8 C (98.2 F) Temp Av.8 C (98.3 F) Min: 36.8 C (98.2 F) Max: 36.9 C (98.5 F) Constitutional: Awake, alert, and in no apparent distress. Eyes: Sclera anicteric, conjunctivae pink. ENT/Mouth: Oropharynx clear, without erythema, exudate, or thrush. Neck: Supple, without lymphadenopathy. Cardiovascular: Regular rate and rhythm without murmurs, rubs, or gallops. Respiratory: Clear to auscultation, without wheezes, rales, or rhonchi. Gastrointestinal/Abdomen: Soft, non-tender; no masses or hepatosplenomegaly. Musculoskeletal/Extremities:: Bilateral lower extremity cellulitis, erythema, tenderness and foul-smelling malodorous drainage with necrotic tissues. More detail in Wound Care note. Neurovascular status of lower extremities intact. Labs: Results from last 7 days Lab Units 12/27/23 0505 12/26/23 0425 12/25/23 0420 WBC X10E9/L 10.6 9.3 11.7* HEMOGLOBIN g/dL 13.5 14.0 14.3 HEMATOCRIT % 39.9 41.1 43.1 MCV fL 92 91 92 PLATELETS X10E9/L 172 139* 164 NEUTROS ABS X10E9/L 8.2* 7.1* 9.4* LYMPHS ABS AUTO X10E9/L 0.9* 0.7* 0.7* MONOS ABS AUTO X10E9/L 1.1* 1.1* 1.3* EOS ABS AUTO X10E9/L 0.4 0.3 0.3 BASOS ABS AUTO X10E9/L 0.1 0.0 0.0 Results from last 7 days Lab Units 12/27/23 1155 12/27/23 0754 12/27/23 0505 12/26/23 0747 12/26/23 0425 12/25/23 1129 12/25/23 0420 SODIUM mmol/L -- -- 141 -- 138 -- 136 POTASSIUM mmol/L -- -- 4.2 -- 5.2* -- 4.6 CHLORIDE mmol/L -- -- 111* -- 110* -- 111* CO2 mmol/L -- -- 25 -- 24 -- 18* BUN mg/dL -- -- 28* -- 36* -- 41* CREATININE mg/dL -- -- 0.94 -- 0.81 -- 1.01 BEDSIDE GLUCOSE mg/dL 107* 120* -- < > -- < > -- GLUCOSE mg/dL -- -- 112* -- 139* -- 146* CALCIUM mg/dL -- -- 7.7* -- 8.0* -- 8.1* ALBUMIN g/dL -- -- 2.1* -- 2.3* -- 2.2* ALK PHOS U/L -- -- 184* -- 208* -- 243* ALT U/L -- -- 56* -- 73* -- 101* AST U/L -- -- 28 -- 36 -- 69* < > = values in this interval not displayed. Results from last 7 days Lab Units 12/26/23 1911 SED RATE mm/h 37* CRP mg/dL 14.2* HEMOGLOBIN A1C % 7.3* Results from last 7 days Lab Units 12/23/23 1755 COLOR YELLOW TURBIDITY CLEAR SPECIFIC GRAVITY 1.015 NITRITE Negative PH URINE 6.0 LEUKOCYTE ESTERASE Negative PROTEIN mg/dL Negative KETONES (URINE) mg/dL Negative UROBILINOGEN eu/dL 0.2 BLDHGB Negative Imaging Studies: I have personally reviewed this study. Cultures: Microbiology Results Procedure Component Value Units Date/Time Blood culture [[id number]] Collected: 12/23/23 0903 Specimen: Blood Updated: 12/27/23 1323 Specimen Notes RIGHT HAND Culture NO GROWTH 4 DAYS Blood culture [[id number]] Collected: 12/23/23 0850 Specimen: Blood Updated: 12/27/23 1323 Specimen Notes LEFT HAND Culture NO GROWTH 4 DAYS Wound culture superficial includes gram stain [[id number]] Collected: 12/23/23 0835 Specimen: Wound Swab Updated: 12/25/23 0902 Gram Stain Result >25 WHITE BLOOD CELLS/LPF 1 to 9 SQUAMOUS EPITHELIAL CELLS/LPF MANY GRAM NEGATIVE RODS MANY GRAM POSITIVE COCCI MANY GRAM POSITIVE RODS RESEMBLING DIPHTHEROIDS Culture MANY MIXED GRAM POSITIVE AND GRAM NEGATIVE ORGANISMS NO STAPHYLOCOCCUS AUREUS ISOLATED NO PSEUDOMONAS AERUGINOSA ISOLATED NO BETA HEMOLYTIC STREPTOCOCCI ISOLATED Thank you for allowing us to participate in the care of this patient. Please call with questions. Tru Belle. Infectious Disease Fellow , PGY-5 From 7AM-7PM: Please use [employer] for communication. From 7PM-7AM: Please call for our answering service. Associated attestation - Thaddeus Roger DO - 12/27/2023 10:51 PM EST I performed a history and physical examination of the patient Hipolito Daniels, I independently reviewed the laboratory work and imaging as well as other studies mentioned in the above note; I have seen the patient along with and discussed the management with the Infectious Diseases fellow, Tru Belle MD I have reviewed the above note, I agree with the findings and plan of care with the following additions and corrections: Agree with above. Thank you for allowing us to participate in the care of this patient. - HTADDEUS ROGER DO 12/27/23 10:51 PM [facility] Infectious Diseases Message me via [employer] chat Associated Order(s): CONSULT WOUND CARE SERVICES Images from the original note were not included. Wound Care Service Line - Consult Note Patient: Hipolito Daniels Date of Admission: 12/25/2023 10:08 PM Reason for Consult: cellulitis PCP: SYDNEY GRIFFITH DO Admission Chief Complaint: No chief complaint on file. History of Present Illness: Hipolito Daniels is a 58 y.o. male who presented from an outside hospital with bilateral lower extremity wounds. The patient states they started November 25. Patient denies history of leg wounds prior to this, history of vascular testing or MD. He did state history of lower extremity edema for which he wore compression stockings. He presented to ER at the outside facility for increased redness, swelling, pain. Prion to hospitalization, his wound care included: none. Patient reports he was sleeping in a chair, not recliner, with legs down because he could not tolerate anything touching his legs. Past Medical History includes CAD, atrial fibrillation, on warfarin (INR=2 on 12/26), CKD, diabetes, HTN, . Wound Care consulted for bilateral lower leg wounds. At the outside hospital, dressing changes with dakins solution were started. The patient continues to complain of severe pain with dressing changes. Tobacco Use: High Risk (12/26/2023) Patient History Smoking Tobacco Use: Every Day Smokeless Tobacco Use: Never Passive Exposure: Not on file PMH: Past Medical History: Diagnosis Date Angina pectoris ([facility] [place] [place]) Arthritis Atrial fibrillation ([facility] [place] [place]) Chronic kidney disease kidney stones COPD (chronic obstructive pulmonary disease) ([facility] [place] [place]) Coronary artery disease Diabetes mellitus type 2, controlled ([facility] [place] [place]) Hyperlipidemia Hypertension Migraines Myocardial infarction ([facility] [place] [place]) x2 Obesity Pneumonia Shortness of breath Visual impairment glasses PSH: Past Surgical History: Procedure Laterality Date ABDOMINAL SURGERY complete abdominoplasty APPENDECTOMY CARDIAC CATHETERIZATION LAD stents x2 CARDIAC ELECTROPHYSIOLOGY MAPPING AND ABLATION CHOLECYSTECTOMY HERNIA REPAIR KNEE ARTHROSCOPY Bilateral LITHOTRIPSY MANIPULATION SHOULDER Left 06/19/2018 Performed by Jr Kendy Renee DO at [facility] Allergies: Allergies Allergen Reactions Shellfish Derived Other (See Comments) Chills Albuterol Tachycardia Ciprofloxacin Hives Keflex [Cephalexin] Hives Home Meds: Medications Prior to Admission Medication Sig Dispense Refill Last Dose aspirin 81 mg Take 1 tablet (81 mg total) by mouth in the morning. atorvastatin (LIPITOR) 80 mg tablet Take 1 tablet (80 mg total) by mouth in the morning. carvedilol (COREG) 12.5 mg tablet Take 2 tablets (25 mg total) by mouth in the morning and 2 tablets (25 mg total) in the evening. Take with meals. furosemide (LASIX) 20 mg tablet Take 1 tablet (20 mg total) by mouth every other day. glyBURIDE (DIABETA) 2.5 mg tablet Take 1 tablet (2.5 mg total) by mouth daily with breakfast. isosorbide mononitrate (IMDUR) 60 mg 24 hr tablet Take 1 tablet (60 mg total) by mouth daily. metFORMIN (GLUCOPHAGE) 500 mg tablet Take 2 tablets (1,000 mg total) by mouth in the morning and 2 tablets (1,000 mg total) in the evening. Take with meals. warfarin (COUMADIN) 5 mg tablet Take 1-1.5 tablets (5-7.5 mg total) by mouth in the evening. as directed by Cielo BELTRAN (Medication Therapy Management). (Patient taking differently: Take 1-1.5 tablets (5-7.5 mg total) by mouth in the evening. Take 5mg on Saturday, Saturday, . Take 7.5mg on Saturday, Saturday, Saturday, Saturday..) 135 tablet 1 candesartan (ATACAND) 16 mg tablet Take 16 mg by mouth daily. (Patient not taking: Reported on 12/23/2023) clopidogrel (PLAVIX) 75 mg tablet Take 75 mg by mouth daily. (Patient not taking: Reported on 12/23/2023) hydroCHLOROthiazide (HYDRODIURIL) 25 mg tablet Take 25 mg by mouth daily. (Patient not taking: Reported on 12/23/2023) insulin glargine (LANTUS) 100 unit/mL injection Inject 20 Units under the skin nightly. (Patient not taking: Reported on 12/23/2023) Social History: Social History Socioeconomic History Marital status: Spouse name: Not on file Number of children: Not on file Years of education: Not on file Highest education level: Not on file Occupational History Not on file Tobacco Use Smoking status: Every Day Packs/day: 1 Types: Cigarettes Smokeless tobacco: Never Substance and Sexual Activity Alcohol use: No Drug use: Yes Frequency: 3.0 times per week Types: Marijuana Comment: as needed for pain Sexual activity: Defer Other Topics Concern Not on file Social History Narrative Not on file Social Determinants of Health Financial Resource Strain: Low Risk (12/23/2023) Overall Financial Resource Strain (CARDIA) Difficulty of Paying Living Expenses: Not hard at all Food Insecurity: Food Insecurity Present (12/23/2023) Hunger Screening Food Insecurity - Worry: Sometimes True Food Insecurity - Inability: Sometimes True Transportation Needs: No Transportation Needs (12/23/2023) PRAPARE - Transportation Lack of Transportation (Medical): No Lack of Transportation (Non-Medical): No Physical Activity: Insufficiently Active (12/23/2023) Exercise Vital Sign Days of Exercise per Week: 2 days Minutes of Exercise per Session: 20 min Stress: No Stress Concern Present (12/23/2023) [employer] [place] [employer] - Occupational Stress Questionnaire Feeling of Stress : Only a little Social Connections: Socially Isolated (12/23/2023) Social Connection and Isolation Panel [NHANES] Frequency of Communication with Friends and Family: Three times a week Frequency of Social Gatherings with Friends and Family: Three times a week Attends Jew Services: Never Active Member of Clubs or Organizations: No Attends Club or Organization Meetings: Never Marital Status: Interpersonal Safety: Not At Risk (12/23/2023) Humiliation, Afraid, Rape, and Kick questionnaire Fear of Current or Ex-Partner: No Emotionally Abused: No Physically Abused: No Sexually Abused: No Housing Instability: Low Risk (12/23/2023) Housing Instability Housing Instability: No Family History: Family History Problem Relation Age of Onset Heart disease Mother Diabetes Mother Heart disease Father Heart attack Father I have personally reviewed past medical history including surgeries, social history, and family history. I have also reviewed allergies and home medications. They are documented in this note to their detail, and if there are none noted, they will further indicate no pertinent history. Review of Systems Review of Systems Constitutional: Negative for chills and fever. HENT: Negative for ear pain, sinus pressure, sinus pain and trouble swallowing. Eyes: Metal pieces removed from eyes Respiratory: Positive for shortness of breath. Cardiovascular: Positive for leg swelling. Negative for chest pain. No history of pacemaker/ defibrillator placement Gastrointestinal: Negative for abdominal pain. Genitourinary: Negative for difficulty urinating. Musculoskeletal: Negative for gait problem. Skin: Positive for wound. Neurological: Negative for dizziness, seizures and light-headedness. Hematological: Bruises/bleeds easily. Psychiatric/Behavioral: Negative for confusion. HBO Inclusion/exclusion criteria: Presence of untreated pneumothorax: No Pre-existing lung disease in the form of severe COPD with emphysema, pulmonary fibrosis or severe uncontrolled asthma: No Hemodynamic instability; seizure disorder; hypoglycemia: No Patients with cardiomyopathy, specifically ejection fraction of 35% or less: No Known or positive test in females of childbearing potential: No Patient with positive Troponin result: No Patient with known diagnosis of: active CA, cirrhosis, CKD or immune-suppression: No ARDS caused by other viral infections (negative SARS-CoV-2): No ARDS caused by other non-viral infections or trauma:No Do Not Resuscitate (DNR) or other restrictions in escalation of level of care: No Other condition present at the discretion of the treating physician that excludes the patient if determined the patient has underlying health issues that could result in further complications: No [x] Risks of hyperbaric oxygen therapy discussed with patient including potential for pulmonary barotrauma, otic barotrauma, pulmonary oxygen toxicity, as well as others. Physical Exam Vital Signs: BP (!) 80/45 Comment: nurse notified. Pulse 98 Temp 36.7 C (98 F) (Oral) Resp 18 Ht 180.3 cm (5' 11 ) Wt 110.7 kg (244 lb 0.8 oz) SpO2 94% BMI 34.04 kg/m Physical Exam Constitutional: General: He is in acute distress. HENT: Head: Normocephalic and atraumatic. Cardiovascular: Rate and Rhythm: Normal rate. Pulmonary: Effort: Pulmonary effort is normal. No respiratory distress. Abdominal: Palpations: Abdomen is soft. Musculoskeletal: General: Tenderness present. Right lower leg: Edema present. Left lower leg: Edema present. Skin: General: Skin is warm and dry. Neurological: Mental Status: He is alert and oriented to person, place, and time. Psychiatric: Behavior: Behavior normal. Wound Assessment: Location: left, right, and lower legs Type of Wound/Aetiology: venous wound Present on admission. Measurement: circumferential Undermining none Tunneling: none Severity: fat-layer exposed Drainage/Exudate/Odor: large serosanguineous malodorous Wound bed: slough and necrotic Wound Edges: attached Periwound: edema New wound encounter. Labs Reviewed: Results from last 7 days Lab Units 12/26/2342412/25/2341912/24/23 0457 12/23/23 0903 WBC X10E9/L 9.3 11.7* 12.0* 13.2* HEMOGLOBIN g/dL 14.0 14.3 15.9 16.8 HEMATOCRIT % 41.1 43.1 46.7 50.1* PLATELETS X10E9/L 139* 164 185 241 Results from last 7 days Lab Units 12/26/23 1213 12/26/23 0747 12/26/23 04212/25/23 1129 12/25/23 04212/24/23 1110 12/24/23 0457 12/23/23 1323 12/23/23 0903 POTASSIUM mmol/L -- -- 5.2* -- 4.6 -- 4.4 -- 4.4 CO2 mmol/L -- -- 24 -- 18* -- 21* -- 16* BUN mg/dL -- -- 36* -- 41* -- 52* -- 82* CREATININE mg/dL -- -- 0.81 -- 1.01 -- 1.16 -- 1.17 BEDSIDE GLUCOSE mg/dL 146* 103* -- 162* -- < > -- < > -- GLUCOSE mg/dL -- -- 139* -- 146* -- 142* -- 109* < > = values in this interval not displayed. Results from last 7 days Lab Units 12/26/2342412/26/23 0010 12/25/23 0420 12/24/23 1253 12/23/23 0903 INR 2.0* 2.0* 2.8* 4.5* 6.2* PROTIME sec 22.2* 23.2* 31.9* 49.2* 67.5* APTT sec -- -- -- -- 55* Pathology/Cytology Results No results found for the last 168 hours. Microbiology Results Procedure Component Value Units Date/Time Blood culture [[id number]] Collected: 12/23/23902 Specimen: Blood Updated: 12/25/23 1323 Specimen Notes RIGHT HAND Culture NO GROWTH 2 DAYS Blood culture [[id number]] Collected: 12/23/23 0850 Specimen: Blood Updated: 12/25/23 1323 Specimen Notes LEFT HAND Culture NO GROWTH 2 DAYS Wound culture superficial includes gram stain [[id number]] Collected: 12/23/23 0835 Specimen: Wound Swab Updated: 12/25/23 0902 Gram Stain Result >25 WHITE BLOOD CELLS/LPF 1 to 9 SQUAMOUS EPITHELIAL CELLS/LPF MANY GRAM NEGATIVE RODS MANY GRAM POSITIVE COCCI MANY GRAM POSITIVE RODS RESEMBLING DIPHTHEROIDS Culture MANY MIXED GRAM POSITIVE AND GRAM NEGATIVE ORGANISMS NO STAPHYLOCOCCUS AUREUS ISOLATED NO PSEUDOMONAS AERUGINOSA ISOLATED NO BETA HEMOLYTIC STREPTOCOCCI ISOLATED Studies/Imaging Reviewed: Vas art duplex lwr bilateral Result Date: 12/25/2023 Right: Non-visualization of the posterior tibial, anterior tibial and peroneal arteries due to extensive wounds and bandage material. External iliac through SFA plaque with multiphasic waveforms and diastolic flow reversal or hyperemic flow that varies with heart rate. Left: Non-visualization of the posterior tibial, anterior tibial and peroneal arteries due to extensive wounds and bandage material. External iliac through SFA plaque with multiphasic waveforms and diastolic flow reversal or hyperemic flow that varies with heart rate. General: In-patient, bedside examination. Conclusions: BILATERAL:Normal lower extremity arterial duplex examination.Limited visualization of the lower extremity for the outflow arteries at the infra popliteal level, please see the text Assessment: Principal Problem: Cellulitis Active Problems: Venous ulcer of left lower extremity without varicose veins (CMS-HCC) Venous ulcer of right lower extremity without varicose veins (CMS-HCC) Wound Plan Dressing: cleanse skin with mild soap and water, rinse, pat dry. : After cleansing, apply adaptic then Dakins moist to moist dressings to wound Offloading/Skin Care/Edema Management: - continue specialty bed JOSUE/pressure redistribution - turn and reposition minimally every 2 hours - pad and protect bony prominences - moisturize dry skin, do not massage vigorously - elevate bilateral lower extremity/ies and float heel(s) on pillows or offloading boots Antibiotics: per ID Studies/Testing: as above Medical Management: per primary service Wound care will continue to follow while inpatient. Follow up: after d/c to wound clinic near home Will order ECHO for potential HBO therapy. Wounds need to be debrided prior to HBO therapy. Will plan for surgical wound debridement with DR Kiran tomorrow and consider HBO early next week. Discussed with patient Thank you for allowing us to participate in the care of this patient. Please feel free to call us with any questions or concerns. LASHAUN GOLDSMITH APRN-ERICKA 12/26/23 [facility] Service Line Pager #[phone] Mon-Sat 8a-4:00p [phone] Lashaun Goldsmith APRN-ERICKA 12/26/23 0050 Lashaun Goldsmith APRN-ERICKA 12/26/23 3502 documented in this encounter [facility] 12-26-2023 History and physical note Images from the original note were not included. [facility] MD Nadege Brunner, MD Mat Davis, MD Jemima Lewis, MD Bob Ball, MD Francheska Felipe, MD Roger Loja, MD Delmy Roger, MD Jayda Almendarez, TERMITE CONTROL REPRESENTATIVE Susan Ramírez, ERICKA Sidhu, ERICKA Quiñonez, TERMITE CONTROL REPRESENTATIVE Nilda De La Rosa, TERMITE CONTROL REPRESENTATIVE Antonina Boo, TERMITE CONTROL REPRESENTATIVE Arely Cadena, TERMITE CONTROL REPRESENTATIVE Jie Alexandre, TERMITE CONTROL REPRESENTATIVE Con Garcia, TERMITE CONTROL REPRESENTATIVE Annalisa Hagan, ERICKA Monzon, TERMITE CONTROL REPRESENTATIVE Jocelynn Chavis, TERMITE CONTROL REPRESENTATIVE Yanet Cortes, ERICKA Nielson, TERMITE CONTROL REPRESENTATIVE Kayce Callaway, TERMITE CONTROL REPRESENTATIVE Sushma Wong, TERMITE CONTROL REPRESENTATIVE Thalia Maher, TERMITE CONTROL REPRESENTATIVE Bipin Turner, [facility] Hospital Medicine History & Physical Patient: Hipolito Daniels Date of : 1965 Room: [facility]/ PCP: SYDNEY GRIFFITH DO Admission date: 12/25/2023 10:08 PM Encounter date: 12/26/23 Hospital Day: 2 SUBJECTIVE Hipolito Daniels is a 58 y.o. male who presented to [facility] ED via EMS with complaint of leg pain on 12/23. Patient reported he had lymphedema that has been progressively worsening over the last month. He had complaints of new sores that have started to pop up on his lower legs and he has noted drainage for approximately last 2 weeks. He denied any general symptoms of fever, chills, chest pain, shortness on breath, nausea/vomiting, diarrhea. Workup in the ED was notable for an INR of 6.2, WBC 13, and slightly elevated LFTs. Patient is on Coumadin for atrial fibrillation. XR of his right lower extremity showed no acute bony abnormalities. XR his left lower extremity showed extensive soft tissue swelling but no subcutaneous gas or bony abnormality. Findings concerning for cellulitis. Patient was admitted for further workup and evaluation he was started on IV antibiotics- initially on vancomycin and cefepime. Patient was not amenable to bedside debridement therefore General surgery was consulted. His Coumadin was held to allow his INR to down trend. Bilateral lower extremity venous duplex is were normal and without evidence of DVT. Bilateral lower extremity arterial duplexes were also normal but with limited visualization for the outflow arteries at the infrapopliteal level. Decision was made to transfer the patient to [facility] for vascular surgery evaluation and Hyperbaric treatment. Patient was subsequently transferred to [facility] the evening of 12/25 for higher level of care. Patient has a past medical history significant for atrial fibrillation on Coumadin, hypertension, hyperlipidemia, type 2 diabetes, and lymphedema. Allergies: Shellfish derived, Albuterol, Ciprofloxacin, and Keflex [cephalexin] Prior to Admission medications Medication Sig Start Date End Date Taking? Authorizing Provider aspirin 81 mg Take 1 tablet (81 mg total) by mouth in the morning. Yes Not In System Ref Prov atorvastatin (LIPITOR) 80 mg tablet Take 1 tablet (80 mg total) by mouth in the morning. Yes Not In System Ref Prov carvedilol (COREG) 12.5 mg tablet Take 2 tablets (25 mg total) by mouth in the morning and 2 tablets (25 mg total) in the evening. Take with meals. Yes Not In System Ref Prov furosemide (LASIX) 20 mg tablet Take 1 tablet (20 mg total) by mouth every other day. Yes Not In System Ref Prov glyBURIDE (DIABETA) 2.5 mg tablet Take 1 tablet (2.5 mg total) by mouth daily with breakfast. Yes Not In System Ref Prov isosorbide mononitrate (IMDUR) 60 mg 24 hr tablet Take 1 tablet (60 mg total) by mouth daily. Yes Not In System Ref Prov metFORMIN (GLUCOPHAGE) 500 mg tablet Take 2 tablets (1,000 mg total) by mouth in the morning and 2 tablets (1,000 mg total) in the evening. Take with meals. Yes Not In System Ref Prov warfarin (COUMADIN) 5 mg tablet Take 1-1.5 tablets (5-7.5 mg total) by mouth in the evening. as directed by Cielo BELTRAN (Medication Therapy Management). Patient taking differently: Take 1-1.5 tablets (5-7.5 mg total) by mouth in the evening. Take 5mg on Saturday, Saturday, . Take 7.5mg on Saturday, Saturday, Saturday, Saturday.. 12/16/23 Yes Kendy Laurent MD candesartan (ATACAND) 16 mg tablet Take 16 mg by mouth daily. Patient not taking: Reported on 12/23/2023 Not In System Ref Prov clopidogrel (PLAVIX) 75 mg tablet Take 75 mg by mouth daily. Patient not taking: Reported on 12/23/2023 Not In System Ref Prov hydroCHLOROthiazide (HYDRODIURIL) 25 mg tablet Take 25 mg by mouth daily. Patient not taking: Reported on 12/23/2023 Not In System Ref Prov insulin glargine (LANTUS) 100 unit/mL injection Inject 20 Units under the skin nightly. Patient not taking: Reported on 12/23/2023 Not In System Ref Prov Code Status: Full Code Past Medical History: Patient has a past medical history of Angina pectoris ([facility]), Arthritis, Atrial fibrillation ([facility]), Chronic kidney disease, COPD (chronic obstructive pulmonary disease) ([facility]), Coronary artery disease, Diabetes mellitus type 2, controlled ([facility]), Hyperlipidemia, Hypertension, Migraines, Myocardial infarction ([facility]), Obesity, Pneumonia, Shortness of breath, and Visual impairment. Past Surgical History: Patient has a past surgical history that includes Cholecystectomy; Appendectomy; Hernia repair; Lithotripsy; Cardiac catheterization; Abdominal surgery; Tonsillectomy; Cardiac electrophysiology mapping and ablation; Knee arthroscopy (Bilateral); and Manipulation (Left, 06/19/2018). Family History: Patient's family history includes Diabetes in his mother; Heart attack in his father; Heart disease in his father and mother. Social History: Patient reports that he has been smoking cigarettes. He has been smoking an average of 1 pack per day. He has never used smokeless tobacco. He reports current drug use. Frequency: 3.00 times per week. Drug: Marijuana. He reports that he does not drink alcohol. Review of Systems Constitutional: Positive for fatigue. Negative for chills and fever. HENT: Negative for ear pain and sore throat. Eyes: Negative for pain and visual disturbance. Respiratory: Negative for cough and shortness of breath. Cardiovascular: Positive for leg swelling. Negative for chest pain and palpitations. Gastrointestinal: Negative for abdominal pain, constipation, diarrhea, nausea and vomiting. Genitourinary: Negative for dysuria, flank pain, frequency and hematuria. Musculoskeletal: Positive for gait problem. Negative for arthralgias and back pain. Skin: Positive for color change and wound. Negative for rash. Neurological: Negative for seizures and syncope. Psychiatric/Behavioral: Positive for sleep disturbance (Reports he has not been able to sleep due to leg pain). All other systems reviewed and are negative. OBJECTIVE BP 109/47 Pulse 103 Temp 36.8 C (98.2 F) (Oral) Resp 19 Ht 180.3 cm (5' 11 ) Wt 110.7 kg (244 lb 0.8 oz) SpO2 94% BMI 34.04 kg/m Temp: [36.7 C (98 F)-36.9 C (98.4 F)] 36.8 C (98.2 F) Pulse: [95-108] 103 Resp: [13-23] 19 BP: (80-120)/(45-72) 109/47 SpO2: [93 %-98 %] 94 % O2 Device: None (Room air) Intake/Output Summary (Last 24 hours) at 12/26/2023 1821 Last data filed at 12/26/2023 1225 Gross per 24 hour Intake 480 ml Output 700 ml Net -220 ml Physical Exam Constitutional: General: He is not in acute distress. Appearance: He is well-developed. Eyes: Pupils: Pupils are equal, round, and reactive to light. Cardiovascular: Rate and Rhythm: Normal rate. Rhythm irregular. Heart sounds: Normal heart sounds. No murmur heard. Comments: Atrial fibrillation on monitor Unable to palpate DP/PT pulses- able to auscultate with Doppler Cap refill 2-3 seconds in bilateral lower extremities Pulmonary: Effort: Pulmonary effort is normal. Breath sounds: Normal breath sounds. No wheezing, rhonchi or rales. Abdominal: General: Bowel sounds are normal. Palpations: Abdomen is soft. There is no mass. Tenderness: There is no abdominal tenderness. Musculoskeletal: General: Tenderness (Bilateral lower extremities) present. Normal range of motion. Right lower leg: Edema present. Left lower leg: Edema present. Skin: General: Skin is warm and dry. Capillary Refill: Capillary refill takes 2 to 3 seconds. Findings: Erythema and wound present. No rash. Comments: Multiple wounds to bilateral lower extremities in various states- malodorous, weeping See photos below of bilateral lower extremity wounds Neurological: General: No focal deficit present. Mental Status: He is alert and oriented to person, place, and time. Sensory: No sensory deficit. Motor: Weakness (Bilateral lower extremities limited due to pain) present. Psychiatric: Mood and Affect: Mood normal. Behavior: Behavior normal. Right leg 12/25 Right leg 12/24 Left leg 12/24 Medications Scheduled: [COMPLETED] cefepime (MAXIPIME) IV, 1,000 mg, intravenous, Once FOLLOWED BY cefepime (MAXIPIME) IV, 1,000 mg, intravenous, Q8H insulin lispro, 2-10 Units, subcutaneous, TID with meals insulin lispro, 2-8 Units, subcutaneous, Nightly pantoprazole, 40 mg, oral, QAM AC sodium chloride, 3 mL, intravenous, Q12H LUZ sodium hypochlorite, 1 Application, topical, BID vancomycin, 15 mg/kg, intravenous, Q12H warfarin, 5 mg, oral, Daily Infusions: sodium chloride 0.9 %, 10 mL/hr As Needed: acetaminophen alum-mag hydroxide-simeth dextrose dextrose 50 % in water (D50W) fentaNYL glucagon (human recombinant) magnesium oxide magnesium sulfate magnesium sulfate ondansetron ODT oxyCODONE OR oxyCODONE potassium chloride OR potassium chloride sennosides-docusate sodium sodium chloride sodium chloride 0.9 % Allergies: Shellfish derived, Albuterol, Ciprofloxacin, and Keflex [cephalexin] Labs Recent Results (from the past 24 hour(s)) Protime & INR Collection Time: 12/26/23 12:10 AM Result Value Ref Range Protime 23.2 (H) 9.8 - 13.2 sec Inr 2.0 (H) 0.8 - 1.1 Protime & INR Collection Time: 12/26/23 4:25 AM Result Value Ref Range Protime 22.2 (H) 9.8 - 13.2 sec Inr 2.0 (H) 0.8 - 1.1 Comprehensive metabolic panel Collection Time: 12/26/23 4:25 AM Result Value Ref Range Sodium 138 134 - 146 mmol/L Potassium, Bld 5.2 (H) 3.5 - 5.0 mmol/L Chloride 110 (H) 98 - 109 mmol/L CO2 24 22 - 32 mmol/L Anion gap 4 (L) 5 - 15 mmol/L BUN 36 (H) 5 - 23 mg/dL Creatinine 0.81 0.60 - 1.30 mg/dL Glucose 139 (H) 65 - 99 mg/dL Calcium 8.0 (L) 8.5 - 10.5 mg/dL Total Protein 5.0 (L) 6.0 - 8.0 g/dL Albumin 2.3 (L) 3.2 - 5.3 g/dL Alkaline Phosphatase 208 (H) 39 - 130 U/L AST 36 0 - 41 U/L ALT 73 (H) 0 - 40 U/L Total bilirubin 1.2 0.3 - 1.2 mg/dL eGFR (CKD-EPI)non-race dependent >90 >59 ml/min/1.73sq.m Magnesium Collection Time: 12/26/23 4:25 AM Result Value Ref Range Magnesium 1.5 (L) 1.8 - 2.6 mg/dL CBC auto differential Collection Time: 12/26/23 4:25 AM Result Value Ref Range White Blood Cells 9.3 4.0 - 11.0 X10E9/L RBC count 4.52 4.10 - 5.70 X10E12/L Hemoglobin 14.0 13.0 - 17.0 g/dL Hematocrit 41.1 39 - 49 % MCV 91 80 - 100 fL MCH 31.1 27 - 34 pg MCHC 34.2 32 - 36 g/dL RDW 15.1 (H) 11.5 - 15.0 % Platelets 139 (L) 150 - 450 X10E9/L MPV 8.5 7 - 12 fL % neutrophils 77.0 % % lymphocytes 7.6 % % monocytes 11.7 % % eosinophils 3.3 % % Basophils 0.4 % Neutrophils Absolute (A) 7.1 (H) 1.5 - 6.6 X10E9/L Lymphocytes Absolute 0.7 (L) 1.0 - 3.5 X10E9/L Monocytes Absolute 1.1 (H) 0 - 0.9 X10E9/L Eosinophils Absolute 0.3 0.0 - 0.4 X10E9/L Basophils Absolute 0.0 0.0 - 0.2 X10E9/L Bedside Glucose *Place/Obtain serum glucose if >500(>600 MR[facility]) per glucometer. Collection Time: 12/26/23 7:47 AM Result Value Ref Range Bedside glucose 103 (H) 65 - 99 mg/dL Bedside Glucose *Place/Obtain serum glucose if >500(>600 MR[facility]) per glucometer. Collection Time: 12/26/23 12:13 PM Result Value Ref Range Bedside glucose 146 (H) 65 - 99 mg/dL Bedside Glucose *Place/Obtain serum glucose if >500(>600 [facility]) per glucometer. Collection Time: 12/26/23 4:30 PM Result Value Ref Range Bedside glucose 222 (H) 65 - 99 mg/dL Radiology Vas art duplex lwr bilateral Result Date: 12/25/2023 Narrative: Right: Non-visualization of the posterior tibial, anterior tibial and peroneal arteries due to extensive wounds and bandage material. External iliac through SFA plaque with multiphasic waveforms and diastolic flow reversal or hyperemic flow that varies with heart rate. Left: Non-visualization of the posterior tibial, anterior tibial and peroneal arteries due to extensive wounds and bandage material. External iliac through SFA plaque with multiphasic waveforms and diastolic flow reversal or hyperemic flow that varies with heart rate. General: In-patient, bedside examination. Conclusions: BILATERAL:Normal lower extremity arterial duplex examination.Limited visualization of the lower extremity for the outflow arteries at the infra popliteal level, please see the text Vas venous duplex lwr bilateral Result Date: 12/24/2023 Narrative: Right: Portable lower extremity deep vein thrombosis (DVT) exam performed. Common femoral, femoral, popliteal and deep calf muscle veins are compressible without intraluminal content. Spontaneous, common femoral, femoral and popliteal spectral Doppler signals. Evaluation of superficial veins was not performed. Left: Portable lower extremity deep vein thrombosis (DVT) exam performed. Common femoral, femoral, popliteal and deep calf muscle veins are compressible without intraluminal content. Spontaneous, common femoral, femoral and popliteal spectral Doppler signals. Evaluation of superficial veins was not performed. General: In-patient, bedside examination. Conclusions: BILATERAL: NO EVIDENCE of deep vein thrombosis of the lower extremity as stated above. Evaluation of superficial veins was not performed. X-ray tibia fibula right minimum 2 views Result Date: 12/23/2023 Narrative: History: Large wound/ulcers on right leg. Concern for possible myelitis. Exam/Technique: AP and lateral views of the right tibia and fibula Comparison: None Findings: There is no evidence of lytic bony lesions, cortical destruction, or abnormal periosteal reaction to suggest changes of acute osteomyelitis on plain radiographs. No other focal bony abnormalities in the shafts of these bones. There is prominent soft tissue irregularity posteriorly that appears to correspond to the reported ulcer/wound. No gross abnormalities are depicted in the knee or ankle joints on these large [id number] images. IMPRESSION: No acute bony abnormalities demonstrated. Finalized by Salinas Carlos MD on 12/23/2023 9:49 AM X-ray tibia fibula left minimum 2 views Result Date: 12/23/2023 Narrative: CLINICAL HISTORY: Wound, ulceration Comparison: None Views: 2 view FINDINGS: * No acute fracture, dislocation, erosion or periostitis. * Extensive soft tissue swelling. Soft tissue calcification present. No definite subcutaneous gas. IMPRESSION: * Extensive soft tissue swelling. Findings concerning for cellulitis. Otherwise tibia and fibula are unremarkable. Finalized by Jason Harrison MD on 12/23/2023 9:39 AM X-ray chest 1 view Result Date: 12/23/2023 Narrative: Clinical history: Leg swelling Views: 1 Comparison: 05/22/2018 Findings/Impression: 1. No acute infiltrate. No volume loss nor consolidation. There is no pleural effusion, pneumothorax, nor volume loss. Heart and mediastinal structures are unremarkable. Pulmonary vasculature stable. 2. No significant change Finalized by Jason Harrison MD on 12/23/2023 9:37 AM HOSPITAL PROBLEM LIST Principal Problem: Cellulitis Active Problems: Chronic atrial fibrillation ([facility]) Diastolic heart failure ([facility]) Essential hypertension Mixed hyperlipidemia Type 2 diabetes mellitus with obesity ([facility]) Venous ulcer of left lower extremity without varicose veins ([facility]) Venous ulcer of right lower extremity without varicose veins ([facility]) Lymphedema ASSESSMENT & PLAN Cellulitis Venous ulcer of bilateral lower extremities Vascular surgery, Wound care and hyperbaric Medicine, and Infectious Disease consulted WBC 13.2 on admission, currently 9.3 Rapid lactate 1.5 Currently on cefepime 1g q.8 hours and vancomycin per pharmacy dosing 12/23 blood cultures x2 show NGTD 12/23 Superficial wound culture showed many mixed Gram-positive and Gram-negative organisms, >25 WBC UA negative; UC not sent Check urine Legionella/Pseudomonas Pain control with oxycodone q.4 hours PRN, fentanyl for breakthrough pain only Dakin's moist to moist dressings For surgical debridement with Dr. Kiran tomorrow Type 2 diabetes mellitus A1c 6.5 in August 2023 Recheck A1c pending Insulin sliding scale AC/HS Atrial fibrillation Diastolic heart failure Hypertension Hyperlipidemia Currently in atrial fibrillation, rate controlled Last echo in January of 2022 with normal ventricular systolic function, LVEF 55 to 60%, mild mitral regurgitation, mildly elevated right-sided pressures, no pericardial effusion, moderate biatrial dilatation. BNP 27 Continue Lasix, Lipitor, Coreg, Imdur Repeat echo pending for hyperbaric oxygen therapy Supratherapeutic INR- INR on admission to [place] 6.2 INR currently 2.0 Pharmacy to dose warfarin Chart reviewed. Admission orders placed and home medications reconciled. DVT/VTE prophylaxis: SCD's and pharmacologic prophylaxis, warfarin, continue home dose. GI prophylaxis: add pantoprazole. PT/OT to evaluate and treat. DC planning: TBD. Sushma Wong, STEPHANIE-TERMITE CONTROL REPRESENTATIVE 12/26/2023 6:21 PM [facility] - [facility] Hospitalists 7AM-7PM (all facilities): Message rounding KHAI in [place] or page through [employer]. 7PM-7AM ([facility], [facility] Psychiatry and Inpatient Rehab): Page Night KHAI, [phone]. 7PM-7AM ([facility], [place], [place] and [facility] Rehab): Page on-call KHAI, . Sushma Wong, STEPHANIE-ERICKA 12/26/23 1841 Patient seen and examined Interviewed and any questions answered All labs , xrays reviewed Clinical assessment and decisions made by myself in entirety Discussed case with team Agree with above assessment and plan 58-year-old man with history of AFib, diabetes mellitus, chronic diastolic congestive heart failure presented with extensive cellulitis, venous ulcers of bilateral lower extremities. Continue vanco, cefepime. Wound care consulted, plan for debridement Electronically signed by: FRANCHESKA FELIPE MD, 12/26/2023 7:03 PM [facility] [address] [place] [address] (P): [phone] (F): [phone] documented in this encounter [facility] [employer] [facility] 12-24-2023 Miscellaneous Notes The patient called. He states he was admitted to [facility] 12/23/23. He cancelled his INR appointment on 12/26/23. His name has already been added to the admit list. Patient will call back once he is discharged to schedule another appointment. documented [facility] this encounter [facility] 12-24-2023 Telephone encounter Note The patient called. He states he was admitted to [facility] 12/23/23. He cancelled his INR appointment on 12/26/23. His name has already been added to the admit list. Patient will call back once he is discharged to schedule another appointment. [facility] 12-16-2023 Miscellaneous Notes Pt called and requested 90-day refill of his 5 mg warfarin tablets be sent to [facility]. Pt last seen referring provider: 06/11/23 Noted. Per 12/04/23 encounter it appears that patient already requested this, but script was sent to [facility] in [place], [place]. Warfarin prescription sent to [facility] mail order pharmacy. - Laureen Geller RP 12/16/23 9:07 AM documented in this encounter [facility] 12-16-2023 Telephone encounter Note Pt called and requested 90-day refill of his 5 mg warfarin tablets be sent to [facility]. Pt last seen referring provider: 06/11/23 [facility] 12-16-2023 Telephone encounter Note Noted. Per 12/04/23 encounter it appears that patient already requested this, but script was sent to [email or web address] in [place], [place]. Warfarin prescription sent to [facility] mail order pharmacy. - Laureen Geller RP 12/16/23 9:07 AM [facility] 12-04-2023 History of Present illness Narrative Patient called requesting a refill of his warfarin 5 mg tablets for 90 days to a new pharmacy, [facility] with Medicare. Patient last saw referring provider 06/11/23-[employer] with [facility]. Update new phone and email. Noted. Refill sent to [facility] mailorder as requested. Of note, message accidentally attached to encounter but no dosing changes made at this time. Cassie Seay RPH 12/04/23 1042 documented in this encounter [facility] 06-11-2023 Note [place] Cardiology - [facility] Subjective Hipolito Daniels is a 57 y.o. year old male patient being seen for Follow-up (6 month follow up ) Patient Active Problem List Diagnosis Coronary arteriosclerosis in [place] artery Dependent edema Atrial fibrillation (CMS/HCC) Acute myocardial infarction (CMS/HCC) Diabetes mellitus (CMS/HCC) Essential hypertension Mixed hyperlipidemia Morbid obesity (CMS/HCC) Pain in lower limb Status post percutaneous transluminal coronary angioplasty Family History Problem Relation Name Age of Onset Hypertension Mother Diabetes Mother Stroke Father Cancer Father Social History Tobacco Use Smoking status: Every Day Packs/day: 1.00 Types: Cigarettes Smokeless tobacco: Never Substance Use Topics Alcohol use: Not Currently Drug use: Yes Types: Marijuana HPI Hipolito Daniels is a 57 y.o. year old male patient being seen for Afib on Warfarin, CAD s/p multiple stent to the LAD in 2009 and 2012, hypertension and HfimpEF 55-60%, seen in follow-up. Cardiac cath in 2015 showed mild disease. He has permanent AF (s/p ablation in 2013) on warfarin. He has hypertension on treatment. In 2020 his left-ventricular systolic function declined to an ejection fraction of 40 to 45%. We opted for medical therapy. Follow-up echocardiogram January 2022 showed normalization of LV function. Today he reports that he has been doing reasonably well. He has no angina. He has atypical left sided pinpoint chest pain. He has shortness of breath on exertion. NYHA class II. He has bilateral lower extremity edema that is variable. This is chronic. Review of Systems Constitutional: Positive for malaise/fatigue. Eyes: Positive for vision loss in left eye and vision loss in right eye. Cardiovascular: Positive for chest pain, irregular heartbeat, leg swelling and palpitations. Respiratory: Positive for shortness of breath. Musculoskeletal: Positive for arthritis, back pain, joint pain, joint swelling and neck pain. Neurological: Positive for excessive daytime sleepiness, light-headedness, loss of balance and numbness. All other systems reviewed and are negative. Objective Visit Vitals BP 132/78 (BP Location: Left arm, Patient Position: Sitting, BP Cuff Size: Large adult) Pulse 53 Ht 1.803 m (5' 11 ) Wt 120 kg (264 lb 6.4 oz) SpO2 95% BMI 36.88 kg/m??? Smoking Status Every Day BSA 2.45 m??? Physical Exam Constitutional: Appearance: He is well-developed. He is obese. He is not ill-appearing. HENT: Head: Normocephalic and atraumatic. Nose: Nose normal. Eyes: General: No scleral icterus. Pupils: Pupils are equal, round, and reactive to light. Neck: Thyroid: No thyromegaly. Vascular: No JVD. Cardiovascular: Rate and Rhythm: Normal rate. Rhythm irregularly irregular. Pulses: Radial pulses are 2+ on the right side and 2+ on the left side. Heart sounds: Normal heart sounds. No murmur heard. No friction rub. No gallop. Pulmonary: Effort: Pulmonary effort is normal. No respiratory distress. Breath sounds: Normal breath sounds. No wheezing or rales. Chest: Chest wall: No tenderness. Abdominal: General: Bowel sounds are normal. There is no distension. Palpations: Abdomen is soft. Tenderness: There is no abdominal tenderness. Musculoskeletal: General: No swelling. Cervical back: Neck supple. Right lower le+ Pitting Edema present. Left lower le+ Pitting Edema present. Skin: General: Skin is warm and dry. Neurological: General: No focal deficit present. Mental Status: He is alert and oriented to person, place, and time. Psychiatric: Mood and Affect: Mood normal. Behavior: Behavior is cooperative. Judgment: Judgment normal. Allergies Allergies Allergen Reactions Shellfish Derived Other Chills Cephalexin Hives and Other Ciprofloxacin Hives and Other Albuterol Other and Palpitations Medications Current Outpatient Medications: amitriptyline (Elavil) 25 mg tablet, Take 25 mg by mouth at bedtime., Disp: , Rfl: aspirin 81 mg EC tablet, Take 1 tablet every day by oral route., Disp: , Rfl: atorvastatin (Lipitor) 80 mg tablet, Take 1 tablet by mouth in the morning., Disp: , Rfl: carvedilol (Coreg) 25 mg tablet, Take 25 mg by mouth in the morning and at bedtime., Disp: , Rfl: cetirizine (ZyrTEC) 10 mg tablet, Take 1 tablet by mouth if needed each day., Disp: , Rfl: furosemide (Lasix) 20 mg tablet, Take 1 tablet (20 mg) by mouth every other day., Disp: 45 tablet, Rfl: 3 glimepiride (Amaryl) 2 mg tablet, Use 1 tablet in the mouth or throat 1 (one) time each day., Disp: , Rfl: insulin glargine (Lantus) 100 unit/mL (3 mL) pen, inject 60 units subcutaneously AT BEDTIME, Disp: , Rfl: metFORMIN (Glucophage) 1,000 mg tablet, TAKE 1 TABLET BY MOUTH TWICE DAILY WITH a meal, Disp: , Rfl: nitroglycerin (Nitrostat) 0.4 mg SL tablet, Place 1 tablet (0.4 mg) under the tongue every 5 (f (more content not included)... [facility] 12-11-2022 Note Patient here for 9 m o follow up permanent afib, CAD, and CHF. Says his symptoms remain unchanged. Denies bleeding on warfarin. Has not had recent labs (besides PT/INR). Review of Systems Cardiovascular: Positive for chest pain, dyspnea on exertion, leg swelling and palpitations. Respiratory: Positive for shortness of breath. [facility] 12-11-2022 Note Cardiology Clinic No te Subjective Hipolito Daniels is a 57 y.o. year old male patient being seen for Afib on Warfarin, CAD s/p multiple stent to the LAD in 2009 and 2012, hypertension and HfimpEF 55-60%, seen in follow-up. He reports he is at baseline, without improvement or worsening of symptoms. He has stable dyspnea on exertion, lower extremity edema, and intermittent palpitations. He reports BP at home runs in the 110s-130s/70s. He smokes a ppd, not interested in cessation, reports normal lung functioning capacity in 2019. He monitors his weight and takes Lasix every other day. He has not used any SL NTG in years. Patient Active Problem List Diagnosis Coronary arteriosclerosis in [place] artery Dependent edema Atrial fibrillation (CMS/HCC) Acute myocardial infarction (CMS/HCC) Diabetes mellitus (CMS/HCC) Essential hypertension Mixed hyperlipidemia Morbid obesity (CMS/HCC) Pain in lower limb Status post percutaneous transluminal coronary angioplasty Family History Problem Relation Name Age of Onset Hypertension Mother Diabetes Mother Stroke Father Cancer Father Social History Tobacco Use Smoking status: Every Day Packs/day: 1.00 Types: Cigarettes Smokeless tobacco: Never Substance Use Topics Alcohol use: Not Currently Drug use: Yes Types: Marijuana HPI Mr Daniels is seen in follow up viaon CAD s/p multiple stenting procedures, last one in 2012. Cardiac cath in 2015 showed mild disease. He has permanent AF (s/p ablation in 2013) on warfarin. He has hypertension on treatment. In 2020 his left-ventricular systolic function declined to an ejection fraction of 40 to 45%. We opted for medical therapy. Follow-up echocardiogram January 2022 showed normalization of LV function. Today he reports that he has been doing reasonably well. He has no angina. He has shortness of breath on exertion. NYHA class II. He has bilateral lower extremity edema that is variable. This is chronic. Review of Systems Cardiovascular: Positive for dyspnea on exertion, irregular heartbeat, leg swelling and palpitations. Negative for chest pain, claudication, near-syncope, orthopnea, paroxysmal nocturnal dyspnea and syncope. Musculoskeletal: Positive for joint pain. All other systems reviewed and are negative. Objective Visit Vitals BP 145/90 (BP Location: Left arm, Patient Position: Sitting) Pulse 96 Ht 1.803 m (5' 11 ) Wt 122 kg (270 lb) SpO2 96% BMI 37.66 kg/m??? Smoking Status Every Day BSA 2.47 m??? Physical Exam General: Awake, alert, good spirits. NAD Pulm: Diminished air movement Cards: Irregular rate and rhythm, S1, S2. No S3 or S4 gallop. Murmur: none Abd: Soft, Nontender, physiologic bowel sounds are present Extr: Lower extremity edema: 1+. DP pulses:palpable Skin: warm, dry, well perfused Neuro: A&Ox3, No gross deficits Allergies Allergies Allergen Reactions Shellfish Derived Other Chills Cephalexin Hives and Other Ciprofloxacin Hives and Other Albuterol Other and Palpitations Medications Current Outpatient Medications: amitriptyline (Elavil) 25 mg tablet, Take 25 mg by mouth at bedtime., Disp: , Rfl: aspirin 81 mg EC tablet, Take 1 tablet every day by oral route., Disp: , Rfl: carvedilol (Coreg) 25 mg tablet, Take 25 mg by mouth in the morning and at bedtime., Disp: , Rfl: cetirizine (ZyrTEC) 10 mg tablet, Take 1 tablet by mouth if needed each day., Disp: , Rfl: hydroCHLOROthiazide (HYDRODiuril) 12.5 mg tablet, Take 1 tablet by mouth in the morning., Disp: , Rfl: insulin glargine (Lantus) 100 unit/mL (3 mL) pen, inject 60 units subcutaneously AT BEDTIME, Disp: , Rfl: isosorbide mononitrate ER (Imdur) 60 mg 24 hr tablet, Take 60 mg by mouth in the morning., Disp: , Rfl: metFORMIN (Glucophage) 1,000 mg tablet, TAKE 1 TABLET BY MOUTH TWICE DAILY WITH a meal, Disp: , Rfl: warfarin (Coumadin) 5 mg tablet, Take 5-7.5 mg by mouth in the morning., Disp: , Rfl: furosemide (Lasix) 20 mg tablet, Take 1 tablet (20 mg) by mouth every other day., Disp: 45 tablet, Rfl: 3 nitroglycerin (Nitrostat) 0.4 mg SL tablet, Place 1 tablet (0.4 mg) under the tongue every 5 (five) minutes if needed for chest pain., Disp: 25 tablet, Rfl: 3 Recent Labs No recent labs: Check labs. Imaging and other tests Echocardiogram 01/24/2022: Normal ventricular systolic function, LVEF 55 to 60%, mild mitral regurgitation, mildly elevated right-sided pressures, no pericardial effusion, moderate biatrial dilatation. Echocardiogram 01/25/2021: Mildly reduced left regular systolic function, EF 40 to 45%, normal right ventricular systolic function, normal right-sided pressures. Trace pericardial effusion. Blood testing 06/29/2020: BUN, creatinine, potassium. Triglycerides 110 LDL 63. EKG 01/27/2020: A. fib RVR CBC/BMP on 09/18/2018: w/n normal. ECG 08/15/2018: atrial fibrillation, rate 76 bpm. Stress test 09/04/2017: no ischemia. EF 70%. ECG 05/29/2018: sinus (more content not included)... [facility] 02-08-2022 Evaluation note Encounter Date Diagnosis Assessment Notes Jan, Type 2 diabetes mellitus with hyperglycemia (ICD-10 - E11.65) 1. Controlled, a Type 2 diabetes with A1c of 6.8% 2. Blood glucose levels improved. According to [employer] cgm download less than 24 hours of information. Avg 145. >250-0%, >180-10%, 70-180-90%, <70-0%, <540%. CV 17.8%. Reviewed with pap if qualifies for pap will order ozempic recommend starting dose 0.25mg once weekly x4 weeks then 0.5mg once weekly. Pt verbalizes understanding. Note: sglt2/glp1 cost prohibitive, pt was given pap for charmaine didn't bring proof of income, reviewed with pt once he brings proof of income can submit- would changed lantus to levemir, humalog to novolog and start ozempic 0.5mg. 3. Patient is alert, oriented and receptive to making changes or counseling. Notes: Seen for an assessment of current glucose pattern, changes in treatment plan, counseling and coordination of care related to diabetes, risks, and benefits of treatment, medications, and side effects. Given handouts to reinforce concepts reviewed during counseling, see scanned notes. TOPICS REVIEWED: 1. Time was spent reviewing: a. Basic concepts of diabetes, progressive beta cell , concepts of basal/bolus/rj ective insulin requirements. Basal: The goal is fasting blood glucose of 90-130mg. IF fasting blood glucose starts to run under 100mg 3x's/ week, decrease dose by 10%. Bolus: The goal is to hold the blood glucose level steady meal to meal. If pt. is going to have increased physical activity after a meal, decrease the schedule meal dose prior to the activity by 30-50%. If pt. skips a meal do not take this dose. Correction: The goal is to correct an elevated glucose back into the 100-150mg range b. Nutrition: Concepts of healthy diet, encouraged to decrease saturated fat in diet and increase non-starchy vegetables and fruits in diet. BMI: Pt. needs to select one small change to decrease caloric intake or increase physical activity to help decrease weight. c. Correct treatment of hypoglycemia, carry a glucose source at all times on your person, in vehicles, and at bedside. Can use glucose tablets/4, four ounces of pop or juice equal to 15 G of carbohydrate. Blood glucose should be 100 mg/dl or higher when driving. d. ADA glucose goals for age and medical complexity reviewed e. Patient questions addressed 2. Activity/exercis e: Encouraged to start any form of physical activity. Start low level and increase slowly to a minimal goal of 150 minutes/week. Limit activity to what is allowed by other issues such as cardiac, pulmonary or orthopedic restrictions. 3. Standards of care: Reminded to have an annual dilated eye exam, A1C every 3 months, urine testing for microalbumin once/year, check feet daily and report any cuts or sores that do not appear to be healing. 4. Meter: Plan to check blood glucose: Please check blood glucose levels 4 times/day. Back to back meals reveal effectiveness of bolus dosing. The blood glucose data is used to determine insulin doses and confirm symptoms for hypoglycemia and hyperglcyemia. 5. [facility] Contact office if any issues or concerns with patterns of hypoglycemia, hyperglycemia, or diabetes medication issues. 6. Prescriptions: Pt was given application for pap for charmaine at last appt but did not return, application filled out today-pt will need to bring copy of proof of income- will switch lantus to levemir, send novolog, ozempic. 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 (ICD-10 - Z79.4) Jan, BMI 36.0-36.9,adult (ICD-10 - Z68.36) 5 pound weight loss from last visit, continue with weight loss efforts Jan, Hypoglycemia associated with type 2 diabetes mellitus (ICD-10 - E11.649) Jan, Vitamin B 12 deficiency (ICD-10 - E53.8) [facility] Other 01-17-2022 Evaluation note* Encounter Date Diagnosis Assessment Notes Treatment Notes Treatment Clinical Notes Nov, Type 2 diabetes mellitus with hyperglycemia (ICD-10 - E11.65) [facility] Other 11-18-2021 Evaluation note* Encounter Date Diagnosis Assessment Notes Treatment Notes Treatment Clinical Notes Sep, Encounter for immunization (ICD-10 - Z23) Patient presents for COVID-19 vaccination BOOSTER. Pre-screening form answers evaluated with patient. Patient denies current illness or allergic reaction to component of COVID-19 vaccine. Patient provided with current copy of EUA. [facility] Other 11-17-2021 Evaluation note* Encounter Date Diagnosis Assessment Notes Treatment Notes Treatment Clinical Notes Sep, Other Summary of Visit: (A) plate method of meal planning (B) discussed alternative food choices to increase variety (C) benefits of losing 5-10% of body weight to increase insulin sensitivity Patient set the following goals: - trial various foods discussed today [facility] Other 10-12-2021 Evaluation note* Encounter Date Diagnosis Assessment Notes Treatment Notes Treatment Clinical Notes Aug, Type 2 diabetes mellitus with hyperglycemia (ICD-10 - E11.65) [facility] Other 10-04-2021 Evaluation note* Encounter Date Diagnosis Assessment Notes Treatment Notes Treatment Clinical Notes Aug, Type 2 diabetes mellitus with hyperglycemia (ICD-10 - E11.65) 1. Uncontrolled, a Type 2 diabetes with A1c of 7.3% 2. Blood glucose levels above target. Note max basal for current weight 61 units/day. Pt with CAD hx. Denies hx pancreatitis/mtc/me n. Reviewed common s/e of glp1 class, pt is agreeable to starting ozempic. He was given sample ozempic, he administered first dose 0.25mg left abdomen, tolerated well. Reviewed with pt ozempic dosing 0.25mg once weekly x4 weeks then increase to 0.5mg once weekly. Pt instructed to reduce basal insulin from 65 to 60 units, reviewed with pt how to titrate basal insulin doisng according to fasting am glucose. Discussed with pt elizabeth 2 cgm, he is agreeable to trial 14 day sample. Reviewed with pt corrective scale 1:50 with Novolog ac tid- pt was given sample novolog u100 pen/pen needles. Reviewed with pt target fasting am ac meal glucose 90/130; 2 hours after meal <180; hs 120-150. Pt verbalizes understanding. Next visit consider adding sglt2 d/t cad hx. 3. Patient is alert, oriented and receptive to making changes or counseling. Notes: Seen for an assessment of current glucose pattern, changes in treatment plan, counseling and coordination of care related to diabetes, risks, and benefits of treatment, medications, and side effects. Given handouts to reinforce concepts reviewed during counseling, see scanned notes. TOPICS REVIEWED: 1. Time was spent reviewing: a. Basic concepts of diabetes, progressive beta cell , concepts of basal/bolus/correct felicity insulin requirements. Basal: The goal is fasting blood glucose of 90-130mg. IF fasting blood glucose starts to run under 100mg 3x's/ week, decrease dose by 10%. Bolus: The goal is to hold the blood glucose level steady meal to meal. If pt. is going to have increased physical activity after a meal, decrease the schedule meal dose prior to the activity by 30-50%. If pt. skips a meal do not take this dose. Correction: The goal is to correct an elevated glucose back into the 100-150mg range b. Nutrition: Concepts of healthy diet, encouraged to decrease saturated fat in diet and increase non-starchy vegetables and fruits in diet. BMI: Pt. needs to select one small change to decrease caloric intake or increase physical activity to help decrease weight. c. Correct treatment of hypoglycemia, carry a glucose source at all times on your person, in vehicles, and at bedside. Can use glucose tablets/4, four ounces of pop or juice equal to 15 G of carbohydrate. Blood glucose should be 100 mg/dl or higher when driving. d. ADA glucose goals for age and medical complexity reviewed e. Patient questions addressed 2. Activity/exercise: Encouraged to start any form of physical activity. Start low level and increase slowly to a minimal goal of 150 minutes/week. Limit activity to what is allowed by other issues such as cardiac, pulmonary or orthopedic restrictions. 3. Standards of care: Reminded to have an annual dilated eye exam, A1C every 3 months, urine testing for microalbumin once/year, check feet daily and report any cuts or sores that do not appear to be healing. 4. Meter: Plan to check blood glucose: Please check blood glucose levels 4 times/day. Back to back meals reveal effectiveness of bolus dosing. The blood glucose data is used to determine insulin doses and confirm symptoms for hypoglycemia and hyperglcyemia. 5. [facility]. Contact office if any issues or concerns with patterns of hypoglycemia, hyperglycemia, or diabetes medication issues. 6. Prescriptions: Sent rx for elizabeth 2 cgm to [facility]. Sample elizabeth 2 reader/cgm; novolog u100; ozempic 0.5mg pen given today. Pt was given application for pap for charmaine- will switch lantus to levemir, send novolog, ozempic. 7. Two week f/u with natural resources extension educator for cgm download review. Referral to heater helper forge for dsme. 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 He was taught how to place the sensor and use the reader. He applied the sensor to the back of his left arm with no difficutly. 30 minutes was spent educating the patient by Ctay Cordon RN. Pt would greatly benefit from jail personal use of CGM device such as a Freestyle Elizabeth 2 with ability for high/low alarm feature. Pt. currently using insulin injections >3 times/day with corrective factor and requires frequent self adjustment of insulin based on carbohydrate intake, physical activity blood glucose monitoring. A CGM would improve ease of access to glucose results and reduce risk of hypoglcyemia/hyperg lycemia. [place] [employer] Other Evaluation noteNo InformationNort [employer] Other Evaluation note* Diagnosis Atrial fibrillation, unspecified type ([facility]) documented in this encounter [facility]* Diagnosis Cellulitis- Primary Cellulitis and abscess of unspecified site Acute post-operative pain Cellulitis, unspecified cellulitis site Open wound of both lower extremities, subsequent encounter Venous ulcer of right lower extremity without varicose veins ([facility]-HCC) Warfarin anticoagulation Venous ulcer of left lower extremity without varicose veins ([facility]-HCC) Venous ulcer of right lower extremity without varicose veins (CMS-HCC) Lymphedema Other noninfectious lymphedema Chronic atrial fibrillation (CMS-HCC) Atrial fibrillation Diastolic heart failure (CMS-HCC) Unspecified diastolic heart failure Essential hypertension Unspecified essential hypertension Mixed hyperlipidemia Type 2 diabetes mellitus with obesity (CMS-HCC) Open wound of both lower extremities [facility]* Diagnosis Chronic atrial fibrillation (CMS-HCC)- Primary Atrial fibrillation [facility] general Narrative - Reported* Type Description Date Medical History adhesive capsulitis of left shou lder Medical History HTN Medical History Neuropathy Medical History Anxiety and depression Medical History Hyperlipidemia Medical History Diabetes mellitus, controlled Medical History aneurysm Medical History angina pectoris Medical History atrial fibrillation Medical History Coronary artery disease Medical History seratonin syndrome Surgical History Tonsillectomy/adenoidectomy Surgical History cholecystectomy Surgical History knee arthroscopy bilateral Surgical History colonoscopy-polyps and hemorrho ids removed Surgical History 2 cardiac stents LAD Surgical History kidney stones Surgical History abdominal hernia Surgical History cardioversion x 2 Surgical History Shoulder manipulation Surgical History Cardiac ablation 2013 Hospitalization History see above [facility] Other InstructionsNot on filedocumented in this encounter [facility] SystemInstructionsNot on filedocumented in this encounter [facility] SystemInstructionsNot on filedocumented in this encounter [facility] [employer] SystemReason for visit NarrativeReferral Sydney Blancluzmonalisa, New patient Type 2 IDDM apt with [employer] 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 Other Summary Purpose Family History No Family History Records FoundNo Family History Records FoundNo Family History Records FoundNo Family History Records FoundNo Family History Records FoundNo Family History Records Found Advance Directives No Advanced Directives Records FoundLatest Code Status on File Code Status Date Activated Date Inactivated Comments Full Code 12/23/2023 11:31 AM Latest Code Status on File Code Status Date Activated Date Inactivated Comments Full Code 12/25/2023 11:28 PM Code Status History Code Status Date Activated Date Inactivated Comments Full Code 12/23/2023 11:31 AM 12/25/2023 10:08 PM Latest Code Status on File Code Status Date Activated Date Inactivated Comments Full Code 12/25/2023 11:28 PM 01/08/2024 3:14 AM Code Status History Code Status Date Activated Date Inactivated Comments Full Code 12/23/2023 11:31 AM 12/25/2023 10:08 PM Reason for Referral Specialty Diagnoses / Procedures Referred By Contac t Referred To Contact Procedures Discharge Follow-Up Sushma Wong APRN-CNP [address] [place] [address] Referral ID Status Reason Start Date Expiration Date V isits Requested Visits Authorized [id number] Pending Review 01/07/2024 01/06/2025 1 1 Referral ID Status Reason Start Date Expiration Date V isits Requested Visits Authorized [id number] Pending Review 01/07/2024 01/06/2025 1 1 Specialty Diagnoses / Procedures Referred By Contac t Referred To Contact Diagnoses Cellulitis, unspecified cellulitis site Open wound of both lower extremities, subsequent encounter Venous ulcer of right lower extremity without varicose veins ([facility]) Procedures Follow-up with primary care provider Sushma Wong APRN-CNP [address] [place] [address] Referral ID Status Reason Start Date Expiration Date V isits Requested Visits Authorized [id number] Pending Review 01/07/2024 01/06/2025 1 1 Specialty Diagnoses / Procedures Referred By Contac t Referred To Contact Procedures Adult diet Sushma Wong APRN-TERMITE CONTROL REPRESENTATIVE [address] [place] [address] Referral ID Status Reason Start Date Expiration Date V isits Requested Visits Authorized [id number] Pending Review 01/07/2024 01/06/2025 1 1 Additional Source Comments (unrecognized sect ion and content) No Status Records FoundNo Status Records FoundNo Status Records FoundNo Status Records FoundNo Status Records FoundNo Status Records Found INFORMATION SOURCE (unrecogn ized section and content) DATE CREATED AUTHOR 05/15/2018 [facility] DATE CREATED AUTHOR AUTHOR'S ORGANIZ ATION 11/27/2022 [facility] DATE CREATED AUTHOR AUTHOR'S ORGANIZ ATION 02/14/2023 [facility] DATE CREATED AUTHOR AUTHOR'S ORGANIZ ATION 06/12/2023 [facility] DATE CREATED AUTHOR AUTHOR'S ORGANIZ ATION 12/29/2023 [facility] DATE CREATED AUTHOR AUTHOR'S ORGANIZ ATION 01/10/2024 [facility] REASON FOR VISIT (unrecogniz ed section and content) Specialty Diagnoses / Procedures Referred By Marilyn garcía Referred To Contact Diagnoses Cellulitis Cellulitis with non-healing wounds Francheska Felipe MD [address] [facility] , [address] [address] Referral ID Status Reason Start Date Expiration Date Visits Re quested Visits Authorized [id number] 1 1 Care Teams (unrecognized sec tion and content) [facility] Relationship Specialty Start Date End Date Sydney Griffith DO [address] [place] [address] PCP - General Family Medicine 09/08/21 Fluxer Relationship Specialty Start Date End Date Sydney Griffith DO [address] [place] [address] PCP - General Family Medicine 12/23/23 Fluxer Relationship Specialty Start Date End Date Sydney Griffith DO [address] [place] [address] PCP - General Family Medicine 12/23/23 Fluxer Relationship Specialty Start Date End Date Sydney Griffith DO [address] [place], [place] [id number] PCP - General Family Medicine 12/23/23 Scheduled Active and Recently Administ ered Medications (unrecognized section and content) Medication Order 01/06/2024 01/07/2024 01/08/2024 atorvastatin (LIPITOR) tablet 80 mg 80 mg, oral, Daily, First dose on Sat12/26/23 at 2200, Look-alike/sound-alike medication - verify indication for use. 2116 (Given - Provider: Rosalio Mesa RN) 2022 (Given - Provider: Rosaline Elizabeth RN)2199 (Canceled Entry - Provider: Rosaline Elizabeth RN) 2199 (Due) betamethasone (augmented) (DIPROLENE) 0.05 % cream 1 Application 1 Application, topical, 2 times daily, First dose on Sat12/31/23 at 2100, Apply to rash. 0900 (Not Given - Provider: Ilene Rangel RN - Reason: Medication not available)2100 (Not Given - Provider: Rosalio Mesa RN - Reason: Medication not available) 09 (Not Given - Provider: Rozina French RN, Instructor - Reason: Patient/family refused)2100 (Not Given - Provider: Rosaline Elizabeth RN - Reason: Patient/family refused) 0900 (Due)2100 (Due) DULoxetine (CYMBALTA) DR capsule 60 mg 60 mg, oral, Daily, First dose on Sat12/29/23 at 0900, Look-alike/sound-alike medication - verify indication for use. Swallow whole-do not crush or chew. Although the vp revenue cycle does not recommend opening the capsule to facilitate administration, the contents of capsule may be sprinkled on applesauce or in apple juice and swallowed (without chewing) immediately; do not sprinkle contents on chocolate pudding. 0843 (Given - Provider: Ilene Rangel RN) 0853 (Given - Provider: Rozina French RN, Instructor) 0900 (Due) fluticasone propionate (FLONASE) 50 mcg/actuation nasal spray 2 spray (CANCELED) 2 spray, each nare, Daily, First dose on Sat12/30/23 at 1245, Do not administer within 1 hour of oxymetazoline (AFRIN) Look-alike/sound-alike medication - verify indication for use.Shake product prior to use. 0842 (Given - Provider: Ilene Rangel RN) furosemide (LASIX) injection 40 mg (COMPLETED) 40 mg, intravenous, Once, On Sat01/07/24 at 1400, For 1 dose, Look-alike/sound-alike medication - verify indication for use. IVP rate = 20 mg/min 1446 (Given - Provider: Shannen Remy RN) furosemide (LASIX) tablet 40 mg 40 mg, oral, Daily, First dose on Sat01/08/24 at 0900, Look-alike/sound-alike medication - verify indication for use. 0900 (Due) gabapentin (NEURONTIN) capsule 200 mg 200 mg, oral, 3 times daily, First dose on Sat12/28/23 at 2200, Look-alike/sound-alike medication - verify indication for use. 0542 (Given - Provider: Magaly Blanc RN)1356 (Given - Provider: Ilene Rangel RN)2117 (Given - Provider: Rosalio Mesa RN) 0517 (Given - Provider: Rosalio Mesa RN)1339 (Given - Provider: Shannen Remy RN)203 (Given - Provider: Rosalnie Elizabeth RN) 0600 (Due)1400 (Due)2200 (Due) glyBURIDE (DIABETA) tablet 2.5 mg 2.5 mg, oral, Daily with breakfast, First dose on Sat12/27/23 at 0800, Hold dose and notify prescriber if blood glucose is less than 100 mg/dL or patient status has changed to NPO. Look-alike/sound-alike medication - verify indication for use. May alter blood glucose or insulin requirements. 0843 (Given - Provider: Ilene Rangel RN) 0853 (Given - Provider: Rozina French RN, Instructor) 0800 (Due) insulin lispro (HumaLOG) injection 2-10 Units 2-10 Units, subcutaneous, 3 times daily with meals, First dose on Sat12/26/23 at 0800, Daytime hyperglycemia dosing. For blood glucose 151-200 mg/dL, give 2 units. For blood glucose 201-250 mg/dL, give 4 units. For blood glucose 251-300 mg/dL, give 6 units. For blood glucose 301-350 mg/dL, give 8 units. For blood glucose 351-400 mg/dL, give 10 units. Give even if NPO or meals skipped. Do NOT give more often then every 4 hours when NPO. Notify prescriber if blood glucose greater than 400 mg/dL. Look-alike/sound-alike medication - verify indication for use. Prime with 2 units of insulin prior to administration. Prandial/supplemental Insulin. Pre-filled pens stable 28 days at room temperature. Insulin lispro should be administered within 15 minutes before or immediately after a meal. 0800 (Not Given - Provider: Ilene Rangel RN - Reason: Order parameters not met)1200 (Not Given - Provider: Ilene Rangel RN - Reason: Order parameters not met)1851 (Given - Provider: Ilene Rangel RN) 0800 (Not Given - Provider: Rozina French RN, Instructor - Reason: Order parameters not met)1200 (Canceled Entry - Provider: Shannen Remy RN)1700 (Due) 0800 (Due)1200 (Due)1700 (Due) insulin lispro (HumaLOG) injection 2-8 Units 2-8 Units, subcutaneous, Nightly, First dose on Sat12/25/23 at 2330, Bedtime hyperglycemia dosing. For blood glucose 201-250 mg/dL, give 2 units. For blood glucose 251-300 mg/dL, give 4 units. For blood glucose 301-350 mg/dL, give 6 units. For blood glucose 351-400 mg/dL, give 8 units. Give even if NPO or meals skipped. Do NOT give more often then every 4 hours when NPO. Notify prescriber if blood glucose greater than 400 mg/dL. Look-alike/sound-alike medication - verify indication for use. Prime with 2 units of insulin prior to administration. Prandial/supplemental Insulin. Pre-filled pens stable 28 days at room temperature. Insulin lispro should be administered within 15 minutes before or immediately after a meal. 2200 (Not Given - Provider: Rosalio Mesa RN - Reason: Order parameters not met - Comment: 126) 2200 (Not Given - Provider: Rosaline Elizabeth RN - Reason: Patient/family refused) 2200 (Due) isosorbide mononitrate (IMDUR) 24 hr tablet 30 mg 30 mg, oral, Daily, First dose (after last modification) on Tatum 01/02/24 at 2000, Do not crush or chew. 2116 (Given - Provider: Rosalio Mesa RN) 2021 (Given - Provider: Rosaline Elizabeth, RN) 1999 (Due) metoprolol tartrate (LOPRESSOR) tablet 100 mg 100 mg, oral, 2 times daily, First dose on Sat12/28/23 at 0700, Hold for SBP below 110 or heart rate below 50 Look-alike/sound-alike medication - verify indication for use. 0843 (Given - Provider: Ilene Rangel, ALMAZ)2116 (Given - Provider: Rosalio Mesa RN) 0854 (Given - Provider: Rozina French RN, Instructor)2022 (Given - Provider: Rosaline Elizabeth, ALMAZ) 0900 (Due)2099 (Due) midodrine (PROAMATINE) tablet 10 mg (CANCELED) 10 mg, oral, 3 times daily, First dose (after last modification) on Sat01/03/24 at 1400, Hold for systolic greater than 130, heart rate less than 55 Look-alike/sound-alike medication - verify indication for use. 0542 (Given - Provider: Magaly Blanc RN)1356 (Given - Provider: Ilene Rangel RN) midodrine (PROAMATINE) tablet 15 mg 15 mg, oral, 3 times daily, First dose (after last modification) on Sat01/06/24 at 2200, Hold for systolic greater than 130, heart rate less than 55 Look-alike/sound-alike medication - verify indication for use. 2116 (Given - Provider: Rosalio Mesa RN) 0517 (Given - Provider: Rosalio Mesa RN)133 (Given - Provider: Shannen Remy RN)2029 (Given - Provider: Rosaline Elizabeth, RN) 0600 (Due)1400 (Due)2200 (Due) pantoprazole (PROTONIX) EC tablet 40 mg 40 mg, oral, Every morning before breakfast, First dose on Tatum 12/26/23 at 0700, Look-alike/sound-alike medication - verify indication for use. If patient is receiving enteral feeding, consider alternative PPI or continue IV pantoprazole until the delayed-release tablet can be taken orally, Indication: GERD 0542 (Given - Provider: Magaly Blanc, RN) 0517 (Given - Provider: Rosalio Mesa, RN) 0700 (Due) sodium chloride 0.9 % flush 3 mL 3 mL, intravenous, Every 12 hours scheduled, First dose on Sat12/25/23 at 2330 0844 (Given - Provider: Ilene Rangel RN)2120 (Given - Provider: Rosalio Mesa, RN) 0900 (Not Given - Provider: Rozina French RN, Instructor - Reason: Patient/family refused)2100 (Not Given - Provider: Rosaline Elizabeth RN - Reason: Loss of IV access) 0900 (Due)2100 (Due) warfarin (COUMADIN) tablet 5 mg 5 mg, oral, Daily, First dose (after last modification) on Sat01/05/24 at 1600, Food-Drug Interaction Education Required Look-alike/sound-alike medication - verify indication for use Avoid intake of foods with large amounts of vitamin K Enteral Feeding: If patient is on tube feedings, avoid formulas containing soy protein Transition to oral diet may require decrease in warfarin dose, Target INR: 2 - 3, Hold warfarin & notify prescriber if INR greater than: 3 1546 (Given - Provider: Ilene Rangel RN) 1816 (Given - Provider: Shannen Remy RN) 1600 (Due) PRN Medication Order 01/06/2024 01/07/2024 01/08/2024 acetaminophen (TYLENOL) tablet 650 mg 650 mg, oral, Every 4 hours PRN, temperature greater than 38 C, mild pain - pain scale 1-3, headaches, Starting on Sat12/25/23 at 2327, [Warning: Total Acetaminophen not to exceed more than 4 grams (4000 mg) in 24 hours] alum-mag hydroxide-simeth (MAALOX) 200-200-20 mg/5 mL suspension 30 mL 30 mL, oral, 4 times daily after meals and at bedtime as needed, dyspepsia, Starting on Sat12/25/23 at 2327, Look-alike/sound-alike medication - verify indication for use. Shake well., Indications: dyspepsia dextrose (GLUTOSE) 40 % gel 15 g 15 g, oral, As needed, low blood sugar, blood glucose less than 70 mg/dL, Starting on Sat12/25/23 at 2327, If patient conscious and taking PO. If blood glucose is not greater than 70 mg/dL after initial treatment, repeat treatment. dextrose 50 % in water (D50W) 50% solution 25 mL 25 mL, intravenous, As needed, low blood sugar, blood glucose less than 70 mg/dL and unconscious or NPO with IV access, Starting on Sat12/25/23 at 2327, Push over 1-3 minutes STAT. If conscious and not NPO, immediately follow with meal tray or high protein (7 grams) snack if tray not available. If NPO, initiate 5% dextrose in water at 100 mL/hr and contact prescriber for additional orders. If blood glucose is not greater than 70 mg/dL after initial treatment, repeat treatment. VESICANT (RED) Warning: HYPERTONIC solution. diphenhydrAMINE (BENADRYL) capsule 25 mg 25 mg, oral, Every 6 hours PRN, itching, Starting on 12/30/23 at 0523, Look-alike/sound-alike medication - verify indication for use. 0849 (Given - Provider: Ilene Rangel RN) glucagon HCL injection 1 mg 1 mg, intramuscular, As needed, low blood sugar, blood glucose less than 70 mg/dL and unconscious or NPO without IV access., Starting on Sat12/25/23 at 2327, If conscious and not NPO, immediately follow with meal tray or high protein (7Grams) snack if tray not available. If NPO, initiate IV 5% Dextrose/Water at 100 mL/hr and contact prescriber for additional orders. If blood glucose is not greater than 70 mg/dL after initial treatment, repeat treatment. HYDROmorphone (PF) (DILAUDID) injection 1 mg 1 mg, intravenous, Every 3 hours PRN, Breakthrough, Starting on 12/28/23 at 0606, If IV push, administer over over 2 to 3 minutes. Look-alike/sound-alike medication - verify indication for use. magnesium oxide (MAGOX) tablet 400 mg 400 mg, oral, Daily PRN, Magnesium under 1.8, Starting on Tatum 12/26/23 at 0820 ondansetron ODT (ZOFRAN ODT) disintegrating tablet 4 mg 4 mg, buccal, Every 6 hours PRN, nausea, vomiting, Starting on Sat12/25/23 at 2327 oxyCODONE (ROXICODONE) immediate release tablet 10 mg(Linked Group 1) 10 mg, oral, Every 4 hours PRN, severe pain - pain scale 7-10, Starting on 12/28/23 at 0606, Look-alike/sound-alike medication - verify indication for use. Immediate release. 0128 (Given - Provider: Magaly Blanc RN)0545 (Given - Provider: Magaly Blanc RN)0948 (Given - Provider: Ilene Rangel RN)1556 (See Alternative - Provider: Ilene Rangel RN)2243 (Given - Provider: Rosalio Mesa RN) 0912 (Given - Provider: Rozina French RN, Instructor)1340 (Given - Provider: Shannen Remy RN)1812 (Given - Provider: Shannen Remy RN) 0005 (Given - Provider: Rosaline Elizabeth RN) oxyCODONE (ROXICODONE) immediate release tablet 5 mg(Linked Group 1) 5 mg, oral, Every 4 hours PRN, moderate pain - pain scale 4-6, Starting on 12/28/23 at 0606, Look-alike/sound-alike medication - verify indication for use. Immediate release. 0128 (See Alternative - Provider: Magaly Blanc RN)0545 (See Alternative - Provider: Magaly Blanc RN)0948 (See Alternative - Provider: Ilene Rangel RN)1556 (Given - Provider: Ilene Rangel RN - Comment: Naga BARNETT sated to only give 5mg d/t BP.)2243 (See Alternative - Provider: Rosalio Mesa RN) 0912 (See Alternative - Provider: Rozina French RN, Instructor)1340 (See Alternative - Provider: Shannen Remy RN)1812 (See Alternative - Provider: Shannen Remy RN) 0005 (See Alternative - Provider: Rosaline Elizabeth RN) potassium chloride (K-TAB,KLOR-CON) CR tablet 20-40 mEq(Linked Group 2) 20-40 mEq, oral, As needed, potassium supplementation, Starting on Sat12/25/23 at 2327, Progress to oral potassium replacement when patient tolerating oral intake. If dose administered, recheck potassium level 4 hours after last dose. For potassium level 3.4 to 3.8 mmol/L and GFR less than 30 mL/min or dialysis=20 mEq. For potassium level 3.1 to 3.3 mmol/L and GFR less than 30 mL/min or dialysis=30 mEq. For potassium level 3 mmol/L or less and GFR less than 30 mL/min or dialysis=40 mEq. Do not crush or chew. potassium chloride (KAYCIEL) 20 mEq/15 mL solution 20-40 mEq(Linked Group 2) 20-40 mEq, oral, As needed, potassium supplementation, Starting on Sat12/25/23 at 232, Progress to oral potassium replacement when patient tolerating oral intake. If dose administered, recheck potassium level 4 hours after last dose. For potassium level 3.4 to 3.8 mmol/L and GFR less than 30 mL/min or dialysis=20 mEq. For potassium level 3.1 to 3.3 mmol/L and GFR less than 30 mL/min or dialysis=30 mEq. For potassium level 3 mmol/L or less and GFR less than 30 mL/min or dialysis=40 mEq. Must dilute before use - Mix in 3-8 ounces of water or juice before administration When administering in feeding tube, flush before and after per policy and monitor potassium levels sennosides-docusate sodium (SENOKOT-S) 8.6-50 mg 1 tablet 1 tablet, oral, Every 12 hours PRN, constipation, Starting on Sat12/25/23 at 2326 sodium chloride 0.9 % flush 3 mL 3 mL, intravenous, As needed, line care, before and after each intermittent use, Starting on Sat12/25/23 at 2326 sodium chloride 0.9 % infusion 10 mL/hr, intravenous, Continuous PRN, to maintain patency of lines, Starting on Sat12/25/23 at 232 Linked Groups Order Group 1: oxyCODONE (ROXICODONE) immediate release tablet 5 mgJump to med 5 mg, oral, Every 4 hours PRN, moderate pain - pain scale 4-6, Starting on Sat12/28/23 at 0606, Look-alike/sound-alike medication - verify indication for use. Immediate release. Or oxyCODONE (ROXICODONE) immediate release tablet 10 mgJump to med 10 mg, oral, Every 4 hours PRN, severe pain - pain scale 7-10, Starting on Sat12/28/23 at 0606, Look-alike/sound-alike medication - verify indication for use. Immediate release. Group 2: potassium chloride (K-TAB,KLOR-CON) CR tablet 20-40 mEqJump to med 20-40 mEq, oral, As needed, potassium supplementation, Starting on Sat12/25/23 at 2327, Progress to oral potassium replacement when patient tolerating oral intake. If dose administered, recheck potassium level 4 hours after last dose. For potassium level 3.4 to 3.8 mmol/L and GFR less than 30 mL/min or dialysis=20 mEq. For potassium level 3.1 to 3.3 mmol/L and GFR less than 30 mL/min or dialysis=30 mEq. For potassium level 3 mmol/L or less and GFR less than 30 mL/min or dialysis=40 mEq. Do not crush or chew. Or potassium chloride (KAYCIEL) 20 mEq/15 mL solution 20-40 mEqJump to med 20-40 mEq, oral, As needed, potassium supplementation, Starting on Sat12/25/23 at 2327, Progress to oral potassium replacement when patient tolerating oral intake. If dose administered, recheck potassium level 4 hours after last dose. For potassium level 3.4 to 3.8 mmol/L and GFR less than 30 mL/min or dialysis=20 mEq. For potassium level 3.1 to 3.3 mmol/L and GFR less than 30 mL/min or dialysis=30 mEq. For potassium level 3 mmol/L or less and GFR less than 30 mL/min or dialysis=40 mEq. Must dilute before use - Mix in 3-8 ounces of water or juice before administration When administering in feeding tube, flush before and after per policy and monitor potassium levels FOR RECORDS PERTAINING TO PATIENTS WHO ARE OR HAVE BEEN ENROLLED IN A CHEMICAL DEPENDENCY/SUBSTANCEABUSE PROGRAM, SOME INFORMATION MAY BE OMITTED. This clinical summary was aggregated from multiple sources. Caution should be exercised in using it in the provision of clinical care. This summary normalizes information from multiple sources, and as a consequence, information in this document may materially change the coding, format and clinical context of patient data. In addition, data may be omitted in some cases. CLINICAL DECISIONS SHOULD BE BASED ON THE PRIMARY CLINICAL RECORDS. [facility] [employer] [facility]. provides no warranty or guarantee of the accuracy or completeness of information in this document.
== END 2024-01-15 00:42 | disposition home or self-care (01) ==
LOC: LAB 00:41
PROVIDERS: PCP Family Medicine; Visit Provider Nurse Practitioner Family
DX: I25.118 Atherosclerotic heart disease of native coronary artery with other forms of angina pectoris (principal)
CPT/HCPCS: 36415; 83880

== ENCOUNTER 2024-01-21 13:58 | Outpatient (OUT) | payer MEDICARE, SELFPAY | END 2024-01-21 13:59 | disposition home or self-care (01) | LOC: WC 13:58 | PROVIDERS: PCP Family Medicine; Visit Provider Podiatrist Foot & Ankle Surgery | DX: E11.622 Type 2 diabetes mellitus with other skin ulcer (principal); L97.212 Non-pressure chronic ulcer of right calf with fat layer exposed; L97.222 Non-pressure chronic ulcer of left calf with fat layer exposed; L97.321 Non-pressure chronic ulcer of left ankle limited to breakdown of skin; L97.311 Non-pressure chronic ulcer of right ankle limited to breakdown of skin; I87.313 Chronic venous hypertension (idiopathic) with ulcer of bilateral lower extremity | CPT/HCPCS: 11042; 11045; G0463 ==

== ENCOUNTER 2024-02-04 15:42 | Outpatient (OUT) | payer MEDICARE, SELFPAY | END 2024-02-04 15:43 | disposition home or self-care (01) | LOC: WC 15:42 | PROVIDERS: PCP Family Medicine; Visit Provider Physician Assistant | DX: E11.622 Type 2 diabetes mellitus with other skin ulcer (principal); L97.212 Non-pressure chronic ulcer of right calf with fat layer exposed; L97.222 Non-pressure chronic ulcer of left calf with fat layer exposed; L97.321 Non-pressure chronic ulcer of left ankle limited to breakdown of skin; L97.311 Non-pressure chronic ulcer of right ankle limited to breakdown of skin; L97.818 Non-pressure chronic ulcer of other part of right lower leg with other specified severity; L97.828 Non-pressure chronic ulcer of other part of left lower leg with other specified severity; S90.821A Blister (nonthermal), right foot, initial encounter; I87.313 Chronic venous hypertension (idiopathic) with ulcer of bilateral lower extremity; I87.333 Chronic venous hypertension (idiopathic) with ulcer and inflammation of bilateral lower extremity | CPT/HCPCS: G0463 ==

== ENCOUNTER 2024-02-18 11:15 | Outpatient (OUT) | payer MEDICARE, SELFPAY | END 2024-02-18 11:16 | disposition home or self-care (01) | LOC: WC 11:15 | PROVIDERS: PCP Family Medicine; Visit Provider Podiatrist Foot & Ankle Surgery | DX: E11.622 Type 2 diabetes mellitus with other skin ulcer (principal); L97.212 Non-pressure chronic ulcer of right calf with fat layer exposed; L97.222 Non-pressure chronic ulcer of left calf with fat layer exposed; L97.321 Non-pressure chronic ulcer of left ankle limited to breakdown of skin; L97.311 Non-pressure chronic ulcer of right ankle limited to breakdown of skin; L97.818 Non-pressure chronic ulcer of other part of right lower leg with other specified severity; L97.828 Non-pressure chronic ulcer of other part of left lower leg with other specified severity; S90.821A Blister (nonthermal), right foot, initial encounter; I87.313 Chronic venous hypertension (idiopathic) with ulcer of bilateral lower extremity; I87.333 Chronic venous hypertension (idiopathic) with ulcer and inflammation of bilateral lower extremity | CPT/HCPCS: 11042; 11045 ==

== ENCOUNTER 2024-02-19 11:54 | Outpatient (RCR) | payer MEDICARE, SELFPAY | END 2024-05-23 17:18 | disposition home or self-care (01) | LOC: OT 11:54 | PROVIDERS: PCP Family Medicine; Visit Provider Podiatrist Foot & Ankle Surgery | DX: I89.0 Lymphedema, not elsewhere classified (principal) | CPT/HCPCS: 97140; 97167 ==

== ENCOUNTER 2024-03-10 13:34 | Outpatient (OUT) | payer MEDICARE, SELFPAY | END 2024-03-10 13:35 | disposition home or self-care (01) | LOC: WC 13:34 | PROVIDERS: PCP Family Medicine; Visit Provider Podiatrist Foot & Ankle Surgery | DX: I87.313 Chronic venous hypertension (idiopathic) with ulcer of bilateral lower extremity (principal); L97.212 Non-pressure chronic ulcer of right calf with fat layer exposed; L97.222 Non-pressure chronic ulcer of left calf with fat layer exposed | CPT/HCPCS: 11042; 11045 ==

== ENCOUNTER 2024-03-30 14:46 | Outpatient (OUT) | payer MEDICARE, SELFPAY | END 2024-03-30 14:47 | disposition home or self-care (01) | LOC: WC 14:46 | PROVIDERS: PCP Family Medicine; Visit Provider Physician Assistant | DX: I87.313 Chronic venous hypertension (idiopathic) with ulcer of bilateral lower extremity (principal); L97.212 Non-pressure chronic ulcer of right calf with fat layer exposed; L97.222 Non-pressure chronic ulcer of left calf with fat layer exposed | CPT/HCPCS: G0463 ==

== ENCOUNTER 2024-04-27 16:10 | Outpatient (OUT) | payer MEDICARE, SELFPAY ==
--- OUTSIDE RECORDS SUMMARY | 2024-04-27 16:19 | XMS_ITS ---
Patient Summarization (C-CDA 2.1 CCD) Created on: April 27, 2024 HIPOLITO DANIELS : 1965 Sex: Undifferentiated Author Organization Sample organization Care Team Providers Care Implementation Services Analyst Name Role Phone PHYSICIAN, DEFAULT Unavailable Unavailable PHYSICIAN, DEFAULT Unavailable Unavailable HOUSE, ERIC Unavailable Unavailable PHYSICIAN, DEFAULT Unavailable Unavailable PHYSICIAN, DEFAULT Unavailable Unavailable HOUSE, ERIC Unavailable Unavailable PHYSICIAN, DEFAULT Unavailable Unavailable PHYSICIAN, DEFAULT Unavailable Unavailable HOUSE, ERIC Unavailable Unavailable Tristen Wilvera Unavailable Sarah Collado Unavailable FAWWAD, KING H [...] DR GEORGE Primary Care Unavailable MARNIE, ANNALISA Admitting Unavailable MARNIE, ANNALISA Attending Unavailable MISC, DR GEORGE Primary Care [...] Admitting Unavailable Rumschlag, Sydney Primary Care Unavailable Rumschlag DO, Sydney K Primary Care Provider [phone] Rumschlag DO, Sydney K Primary Care Provider Rumschlag DO, Sydney K Primary Care Provider FRANCHESKA FELIPE Admitting Unavailable FRANCHESKA FELIPE Attending Unavailable MAT DAVIS U Referring Unavailable RUMSCHLAG, SYDNEY K Primary Care Unavailable ONLY), IP WOUND CARE SERVICES (INPATIENT Consult ing Unavailable [facility], [facility] Consulting CARLOS Sher Consulting Unavailable DIVISION OF INFECTIOUS DISEASE, [facility] Consulting Unavailable CARDIOLOGY, [facility] Consulting Unavailable HARDEEP KIRAN Consulting Unavailable WINSTON, MAT U Referring Unavailable RUMSCHLAG, SYDNEY K [...] Unavailable RUMSCHLAG, SYDNEY K Primary Care Unavailable KENDY VILLALPANDO Attending Unavailable KENDY VILLALPANDO Attending Unavailable SERVICE, JOBST Referring Unavailable RUMSCHLAG, SYDNEY K Primary Care Unavailable SERVICE, JOBST Referring Unavailable RUMSCHLAG, SYDNEY K Primary Care Unavailable SERVICE, JOBST Referring Unavailable RUMSCHLAG, SYDNEY K Primary Care Unavailable SERVICE, JOBST Referring Unavailable RUMSCHLAG, SYDNEY K Primary Care Unavailable RUMSCHLAG, SYDNEY K Referring Unavailable RUMSCHLAG, SYDNEY K Primary Care Unavailable SERVICE, JOBST Referring Unavailable RUMSCHLAG, SYDNEY K Primary Care Unavailable SERVICE, JOBST Referring Unavailable RUMSCHLAG, SYDNEY K Primary Care Unavailable RUMSCHLAG, SYDNEY K Primary Care Unavailable SEDRICK GREGORY Attending Unavailable MAT DAVIS Admitting Unavailable ONLY), IP WOUND CARE SERVICES (INPATIENT Consult ing Unavailable BRYN PARRA Consulting Unavailable REBEKA HERNANDEZ Consulting Unavailable SEDRICK GREGORY Attending Unavailable SEDRICK GREGOYR Referring Unavailable RUMSCHLAG, SYDNEY K Primary Care Unavailable ARGENISHSUSANNE Attending Unavailable PARISSUSANNE Garcia Referring Unavailable RUMSCHLAG, SYDNEY K Primary Care Unavailable CON GARCIA Attending Unavailable CON GARCIA Referring Unavailable RUMSCHLAG, SYDNEY K Primary Care Unavailable SERVICE, JOBST Referring Unavailable RUMSCHLAG, SYDNEY K Primary Care Unavailable SERVICE, JOBST Referring Unavailable RUMSCHLAG, SYDNEY K Primary Care Unavailable Allergies Allergy Classification Reported Allergen(s) Allergy Type Date of Onset Reaction(s) Facility (7 sources) albuterol; Translations: [ALBUTEROL] Drug Allergy 03-15-20 14 [facility] Repository (2 sources) cephalexin Drug Allergy 10-26-20 13 [facility] Repository (2 sources) ciprofloxacin Drug Allergy 10-26-20 13 [facility] Repository (11 sources) Shellfish; Translations: [SHELLFISH DERIVED] Drug allergy (disorder) 12-11-19 14 Other (See Comments) [facility] Repository (14 sources) Albuterol Drug Allergy 05-22-20 18 [facility] (19 sources) Cephalexin; Translations: [CEPHALEXIN] Drug Allergy 11-12-20 14 [employer] [facility] [employer] Other (19 sources) Ciprofloxacin; Translations: [CIPROFLOXACIN] Drug Allergy 11-12-20 14 [employer] [place] [employer] Other (1 source) Shellfish Drug allergy (disorder) 03-15-[address] [facility] Repository (1 source) Albuterol Drug Allergy 01-27-20 [facility] Repository (1 source) Cephalexin Drug Allergy 01-27-20 [facility] Repository (1 source) Ciprofloxacin Drug Allergy 01-27-20 [facility] Repository (6 sources) Ampicillin / Sulbactam; Translations: [AMPICILLIN-SULBA CTAM] Drug Allergy 12-31-19 [facility] (7 sources) Magnesium Sulfate; Translations: [MAGNESIUM SULFATE] Drug Allergy 12-27-19 [facility] (7 sources) Penicillins; Translations: [PENICILLINS] Propensity to adverse reactions to drug 12-31-19 [facility] Work Phone: Encounters Encounter Date Encounter Type Care Provider Facility Start: 04-08-2024 End: 04-08-2024 ambulatory [facility] Start: 03-11-2024 End: 03-11-2024 [facility] Start: 03-03-2024 End: 03-04-20[facility] Start: 02-17-2024 End: 02-17-2024 ambulatory [facility] Start: 02-17-2024 End: 02-17-2024 Follow-up encounter [facility] Medication Therapy Management Comment on above: Chronic atrial fibri llation (CMS-HCC) (Primary Dx) Start: 02-10-2024 End: 02-10-2024 ambulatory [facility] Start: 01-30-2024 End: 01-30-2024 ambulatory [facility] Start: 01-30-2024 End: 01-30-2024 Follow-up encounter [facility] Medication Therapy Management Comment on above: Chronic atrial fibri llation ([facility]-HCC) (Primary Dx) Start: 01-08-2024 Follow-up encounter [facility] cation Therapy Management Work Phone: [facility] Medication Therapy Management Comment on above: Chronic atrial fibri llation ([facility]-HCC) (Primary Dx) Start: 01-08-2024 End: 01-08-2024 ambulatory FRANCHESKA FELIPE [facility] Start: 01-08-2024 End: 01-08-2024 [facility] Start: 01-04-2024 End: 01-08-2024 [facility] Start: 01-02-2024 End: 01-08-2024 Evaluation and management of inpatient SYDNEY [facility] Start: 01-01-2024 End: 01-08-2024 Evaluation and management of inpatient [facility] Start: 01-01-2024 End: 01-08-2024 Evaluation and management of inpatient [facility] Start: 12-31-2023 End: 01-08-2024 Evaluation and management of inpatient SYDNEY [facility] Start: 12-31-2023 End: 12-31-2023 Evaluation and management of inpatient SYDNEY [facility] Start: 12-30-2023 End: 12-30-2023 Evaluation and management of inpatient SYDNEY [facility] Start: 12-27-2023 End: 12-31-2023 Evaluation and management of inpatient LASHAUN GOLDSMITH [facility] Start: 12-26-2023 End: 02-24-2024 ambulatory MAT DAVIS [facility] Start: 12-26-2023 End: 01-08-2024 Evaluation and management of inpatient FRANCHESKA FELIPE [facility] Start: 12-25-2023 End: 01-08-2024 Evaluation and management of inpatient Francheska Felipe MD Work Phone: [facility] Acute Start: 12-25-2023 End: 12-26-2023 Evaluation and management of inpatient CON GARCIA [facility] Start: 12-24-2023 Telephone encounter Beth Miner MA [facility] Medication Therapy Management Start: 12-23-2023 End: 12-26-2023 ambulatory SUSANNE Jefferson ARGENISRadha [facility] Start: 12-23-2023 End: 12-26-2023 Emergency department patient visit SEDRICK Jaky CABANGLYNN [facility] Start: 12-23-2023 End: 12-25-2023 Evaluation and management of inpatient SYDNEY K GLADIS [facility] Start: 12-16-2023 Telephone encounter [facility] Work Phone: [facility] Medication Therapy Management Start: 12-04-2023 Follow-up encounter [facility] Work Phone: [facility] Medication Therapy Management Comment on above: Atrial fibrillation, unspecified type ([facility]-HCC) Start: 11-14-2023 End: 11-14-2023 ambulatory [facility] Start: 11-11-2023 End: 11-25-2023 ambulatory [facility] Start: 11-06-2023 End: 11-25-2023 ambulatory [facility] Start: 06-11-2023 End: 06-11-2023 ambulatory [facility] Start: 10-25-2022 End: 11-25-2022 ambulatory SHAIKH [...] Facility:H1 Start: 02-08-2022 (DM) Diabetes Tondra Adarsh [facility] Start: 02-08-2022 End: 02-09-2022 ambulatory Tondra K Adarshus [employer] Other Start: 01-24-2022 End: 01-25-2022 ambulatory ANNALISA DYE Facility:[facility]1 Start: 01-23-2022 End: 02-22-2022 ambulatory KING H FAWWAD Facility:H1 Start: 12-26-2021 End: 01-22-2022 ambulatory KING H FAWWAD Facility:H1 Start: 12-11-2021 End: 12-11-2021 ambulatory Tondra Adarshus Other [employer] Other Start: 12-11-2021 Telephone encounter Tondra Ramon [facility] Start: 11-28-2021 End: 12-25-2021 ambulatory PAUL GONZALEZ Facility:[facility]1 Start: 10-12-2021 ([facility] C Vac) [facility] Co vid Vaccine Sarah Heaven [facility] Start: 10-12-2021 End: 10-12-2021 ambulatory Sarah Collado Other [employer] Other Start: 10-11-2021 (RD) Screw Cutter Sarah Collado [facility] Start: 10-11-2021 End: 10-11-2021 ambulatory Sarah Collado Other [employer] Other Start: 09-07-2021 Telephone encounter Evelina Bonds [facility] Start: 09-05-2021 Telephone encounter Evelina Bonds [facility] Start: 08-28-2021 [facility] Start: 03-19-2018 End: 03-20-2018 Ambulatory DEFAULT PHYSICIAN Facility:[facility] Start: 12-16-2017 End: 12-17-2017 Ambulatory DEFAULT PHYSICIAN Facility:[facility] Start: 09-04-2017 End: 09-05-2017 Ambulatory DEFAULT PHYSICIAN Facility:[facility] Medical Equipment Procedure Code Equipment Code Equipment Original Text Equi pment Identifier Dates Pen Sterling 32G X 4 MM Goals Date Patient Goal Desired Activity /State Personal health goal Comment on above: Formatting of this n ote might be different from the original. Evaluation of progress towards goal: Discharge to SNF. List given. Awaiting choices, acceptance & precert. Immunizations Immunization Date Immunization Notes Care Provider Arthur rosen 10-12-2021 COVID-19 Pfizer Sarah Collado Other [facility] Other 01-28-2020 Influenza, injectabl e, Madin Celine Canine Kidney, preservative free, quadrivalent [facility] 01-28-2020 influenza virus vaccine, unspecified formulation [facility] Work Phone: [facility] [employer] [facility] 10-20-2018 pneumococcal conjuga te vaccine, 13 valent Mat Davis MD [facility] 09-08-2018 Influenza, injectabl e, Madin Celine Canine Kidney, preservative free, quadrivalent Mat Davis MD [facility] Medications Current Medications Medication Drug Class(es) Dates [...] like medication - verify indication for use. Jakub avina., Indications: dyspepsia amitriptyline hydrochloride 50 mg oral tablet (1 source) Tricyclic Antidepressant take 1 tablet by mouth every twenty-four hours Amitriptyline HCl 50 MG 1 tablet at bedtime Orally Once a day Active aspirin 81 mg delayed release oral tablet (15 sources) Platelet Aggregation Inhibitor, Nonsteroidal Anti-inflammatory Drug take 1 tablet by mouth in the morning aspirin 81 mg Take 1 tablet (81 mg total) by mouth in the morning. 0 Active take 1 tablet by mouth once francisco y take 1 tablet by mouth once francisco y Aspirin 81 81 MG 1 tablet Orally Once a day Active atorvastatin 80 mg oral tablet (16 sources) HMG-CoA Reductase Inhibitor Start: 12-26-2023 take 80 mg by mouth once daily 80 mg, oral, Daily, First dose on Sat12/26/23 at 2200, Look-alike/sound-alike medication - verify indication for use. augmented betamethasone 0.5 mg/ml topical cream (6 sources) Corticosteroid Start: 01-07-2024 betamethasone, augmented, (DIPROLENE) [...] tablet (4 sources) P2Y12 Platelet Inhibitor End: digoxin 0.25 mg oral tablet (1 source) Cardiac Glycoside take 1 tablet by mouth in the morning digoxin (LANOXIN) 250 mcg tablet Take 1 tablet (250 mcg total) by mouth in the morning. 0 Active diphenhydrAMINE hydrochloride 25 mg oral capsule (6 sources) Histamine-1 Receptor Antagonist Start: take 1 capsule by mouth every six hours as needed diphenhydrAMINE (BENADRYL) 25 mg capsule Take 1 capsule (25 mg total) by mouth every 6 (six) hours as needed for itching. 0 01/07/2024 Active docusate sodium 50 mg / sennosides, care home 8.6 mg oral tablet (6 sources) Start: take 1 tablet by mouth once as needed sennosides-docusate sodium (SENOKOT-S) 8.6-50 mg Take 1 tablet by mouth every 12 (twelve) hours as needed for constipation. 0 01/07/2024 Active Start: 01-07-2024 Start: 12-25-2023 take 1 tablet by [facility] every twelve hours as needed for constipation 1 tablet, oral, Every 12 hours PRN, constipation, Starting on Sat12/25/23 at 2327 DULoxetine 60 mg delayed release oral capsule (6 sources) Serotonin and Norepinephrine Reuptake Inhibitor Start: 12-29-2023 take 1 capsule by mouth in the morning DULoxetine (CYMBALTA) 60 mg capsule Take 1 capsule (60 mg total) by mouth in the morning. 0 01/08/2024 Active FreeStyle Elizabeth 2 Sensor Systm - (7 sources) Start: 08-28-2021 Start: 08-28-2021 [...] days Active furosemide 40 mg oral tablet (20 sources) Loop Diuretic Start: 01-08-2024 take 1 tablet by mouth once daily furosemide (LASIX) 40 mg tablet Take 1 tablet (40 mg total) by mouth daily. 0 01/08/2024 Active Start: 01-07-2024 End: 01-07-2024 40 mg, intravenous, [...] oral, Every other day, First dose on Sat12/26/23 at 2100, Look-alike/sound-alike medication - verify indication for use. take 1 tablet by veronique th twice daily furosemide (LASIX) 20 mg tablet Take 1 tablet (20 mg total) by mouth 2 (two) times a day. In addition to 40 mg per patient report 0 Active take 1 tablet by veronique th every twenty-four hours Furosemide 20 MG 1 tablet Orally Once a day Active gabapentin 100 mg oral capsule (13 sources) Anti-epileptic Agent Start: 01-07-2024 take 2 capsules by mouth three times daily gabapentin (NEURONTIN) 100 mg capsule Indications: Acute post-operative pain Take 2 capsules (200 mg total) by mouth 3 (three) times a day. 0 01/07/2024 Active Start: 12-28-2023 take 1 capsule by [facility] every twelve hours Gabapentin 300 MG 1 [...] HYPERTONIC solution. glyBURIDE 2.5 mg oral tablet (7 sources) Sulfonylurea Start: 12-27-2023 2.5 mg, oral, [...] Diuretic End: 01-08-2024 take 1 capsule by [facility] every twenty-four hours hydroCHLOROthiazide 12.5 MG [...] ml insulin lispro 100 unt/ml pen injector (17 sources) Insulin Analog Start: 12-26-2023 insulin lispro [...] 1:50 corrective Scale Subcutaneous AC TID E11.65 Aug, Active magnesium oxide 400 mg oral tablet (6 sources) Start: 12-26-2023 magnesium oxid e (MAGOX) 400 mg tablet Take 1 tablet (400 mg total) by mouth daily as needed (Magnesium under 1.8). 0 01/07/2024 Active metFORMIN hydrochloride 1000 mg oral tablet (16 sources) Biguanide take 1 tablet by mouth in the morning, then take 1 tablet by mouth at mealtime metFORMIN (GLUCOPHAGE) 1000 mg tablet Take 1 tablet (1,000 mg total) by mouth in the morning and 1 tablet (1,000 mg total) in the evening. Take with meals. 0 Active End: 01-30-2024 take 2 tablets by mouth in the morning, then take 2 tablets by mouth at mealtime metFORMIN (GLUCOPHAGE) 500 mg tablet Take 2 tablets (1,000 mg total) by mouth in the morning and 2 tablets (1,000 mg total) in the evening. Take with meals. 0 01/30/2024 Discontinued (Dose adjustment) metoprolol tartrate 100 mg oral tablet (6 sources) beta-Adrenergic Yves Start: 12-28-2023 take 1 tablet by mouth in the morning, then take 1 tablet by mouth at bedtime metoprolol tartrate (LOPRESSOR) 100 mg tablet Take 1 tablet (100 mg total) by mouth in the morning and 1 tablet (100 mg total) before bedtime. 0 01/07/2024 Active midodrine hydrochloride 5 mg oral tablet (8 sources) alpha-Adrenergic Agonist Start: 01-07-2024 take 3 tablets by mouth three times daily midodrine (PROAMATINE) 5 mg tablet Take 3 tablets (15 mg total) by mouth 3 (three) times a day. 0 01/07/2024 Active Start: 01-02-2024 End: 01-03-2024 take 5 mg by mouth three times daily 5 mg, oral, 3 times daily, First dose (after last modification) on Sat01/02/24 at 1430, Hold for systolic greater than [...] 0. 4 MG as directed Sublingual Active omeprazole 20 mg delayed release oral capsule (2 sources) Proton Pump Inhibitor take 1 capsule by mouth in the morning omeprazole (PriLOSEC) 20 mg capsule Take 1 capsule (20 mg total) by mouth in the morning. 0 Active ondansetron 4 mg disintegrating oral tablet (6 sources) Serotonin-3 Receptor Antagonist Start: 12-25-19 take [...] mg 12 tablet 0 01/07/2024 01/10/2024 Active 0.25 mg, 0.5 mg dose 1.5 ml semaglutide 1.34 mg/ml pen injector (7 sources) Start: 08-28-2021 warfarin sodium 5 mg oral tablet (20 sources) Vitamin K Antagonist Start: 01-07-2024 warfarin (COUMADIN) 5 mg tablet Take 5mg 01/08/2024 0 01/07/2024 Active Start: 01-07-2024 Start: 01-05-2024 5 mg, oral, Da reed, First dose (after last modification) on Chemult 01/05/24 at 1600, Food-Drug Interaction Education Required [...] mg tablet Indications: Atrial fibrillation, unspecified type ([facility]) Take 1-1.5 tablets (5-7.5 mg total) by mouth in the evening. as directed by Sid BELTRAN (Medication Therapy Management). 135 tablet 1 12/16/2023 [...] indication for use. 20 ml albumin human, care home 250 mg/ml injection (2 sources) Human Serum [...] End: 12-28-2023 25 g, intravenous, Once, On Sat12/28/23 at 0845, For 1 dose, Do not [...] was initiated. carvedilol 25 mg oral tablet (14 sources) alpha-Adrenerg ic Yves, beta-Adrenergi c Yves Start: 12-26-2023 End: 02-17-2024 25 mg, oral, 2 times daily with meals, First dose on Sat12/26/23 at 1830, Hold for sbp < 110 Give with meal or snack. Look-alike/sound-a like medication - verify indication for use. End: 01-08-2024 1 ml fentaNYL 0.05 mg/ml injection (1 [...] daily, First dose on Sat12/26/23 at 0015 24 hr isosorbide mononitrate 30 mg extended release oral tablet (20 sources) Nitrate Vasodilator Start: 01-02-2024 End: 02-17-2024 take 1 tablet by mouth once daily isosorbide mononitrate (IMDUR) 30 mg 24 hr tablet Take 1 tablet (30 mg total) by mouth daily. 0 01/07/2024 02/17/2024 Discontinued (Therapy completed) Start: 12-26-2023 End: 01-08-2024 take 60 mg by mouth once daily 60 mg, oral, Daily, Fir st dose on Sat12/26/23 at 2000, Do not crush or chew. pantoprazole 40 mg delayed release oral tablet (5 sources) Proton Pump Inhibitor Start: 01-08-2024 End: 01-30-2024 take 1 tablet by mouth once daily before breakfast pantoprazole (PROTONIX) 40 mg EC tablet Take 1 tablet (40 mg total) by mouth every morning before breakfast. 0 01/08/2024 01/30/2024 Discontinued (Therapy completed) Start: 12-26-2023 40 mg, oral, E very morning before breakfast, First dose on Sat12/26/23 at 0700, Look-alike/sound-alike medication - verify indication for use. If patient is receiving enteral feeding, consider alternative PPI or continue IV pantoprazole until the delayed-release tablet can be taken orally, Indication: GERD microencapsulated potassium chloride 20 meq extended release oral tablet (7 sources) take 1 tablet by veronique th every twenty-four hours Potassium Chloride Vikki ER 20 MEQ [...] hour 75 mL/hr, intravenous, Continuous, Starting on Sat01/03/24 at 0900, For 24 hours spironolactone 25 [...] Minutes, Every 12 hours, First dose on Tatum 12/26/23 at 1230, VESICANT (YELLOW), Indication: Uncomplicated skin and soft tissue infection Payers Date Payer Category Payer Self-pay 2019 Medicare [id number] 1965 Unknown [id number] 2.16.84 0.1.688883.3.579.2.593 1965 Unknown [id number] 2.16.84 0.1.753593.3.579.2.593 1965 Unknown [id number] 2.16.84 0.1.965047.3.579.2.593 1965 Unknown [id number] 2.16.84 0.1.972329.3.579.2.593 1964 Unknown [id number] 2.16.84 0.1.075349.3.579.2.593 1964 Unknown [id number] 2.16.84 0.1.402372.3.579.2.593 1964 Unknown [id number] 2.16.84 0.1.876821.3.579.2.593 1964 Unknown [id number] 2.16.84 0.1.414211.3.579.2.593 1964 Unknown [id number] 2.16.84 0.1.092902.3.579.2.593 1964 Unknown [id number] 2.16.84 0.1.133214.3.579.2.593 1964 Unknown [id number] 2.16.84 0.1.171256.3.579.2.593 1964 Unknown [id number] 2.16.84 0.1.557964.3.579.2.593 1964 Unknown [id number] 2.16.84 0.1.124279.3.579.2.593 1964 Unknown [id number] 2.16.8 40.1.066136.3.579.2.1285 1964 Unknown [id number] 2.16.8 40.1.168730.3.579.2.1285 1964 Unknown [id number] 2.16.8 40.1.335967.3.579.2.1285 1964 Unknown [id number] 2.16.8 40.1.044655.3.579.2.1285 1964 Unknown [id number] 2.16.8 40.1.757203.3.579.2.1285 1964 Unknown [id number] 2.16.8 40.1.065789.3.579.2.1285 1964 Unknown [id number] 2.16.8 40.1.431375.3.579.2.1285 1964 Unknown [id number] 2.16.8 40.1.438346.3.579.2.1285 1964 Unknown [id number] 2.16.8 40.1.793204.3.579.2.1285 1964 Unknown [id number] 2.16.8 40.1.526403.3.579.2.1285 1964 Unknown [id number] 2.16.8 40.1.574593.3.579.2.1285 1964 Unknown [id number] 2.16.8 40.1.455766.3.579.2.1285 1964 Unknown [id number] 2.16.8 40.1.223534.3.579.2.1285 1964 Unknown [id number] 2.16.8 40.1.117679.3.579.2.1285 1964 Unknown [id number] 2.16.8 40.1.733239.3.579.2.1285 1964 Unknown [id number] 2.16.8 40.1.709867.3.579.2.1286 1964 Unknown [id number] 2.16.8 40.1.840068.3.579.2.1285 1964 Unknown [id number] 2.16.8 40.1.288545.3.579.2.1285 1964 Unknown [id number] 2.16.8 40.1.601216.3.579.2.1285 1964 Unknown [id number] 2.16.8 40.1.855039.3.579.2.128 1964 Unknown [id number] 2.16.8 40.1.515327.3.579.2.1285 1964 Unknown [id number] 2.16.8 40.1.408113.3.579.2.1285 1964 Unknown [id number] 2.16.8 40.1.659811.3.579.2.1285 1964 Unknown [id number] 2.16.8 40.1.366894.3.579.2.128 1964 Unknown [id number] 2.16.8 40.1.718790.3.579.2.1285 1964 Unknown [id number] 2.16.84 0.1.540230.3.579.2.128 1964 Unknown [id number] 2.16.84 0.1.090304.3.579.2.1285 1964 Unknown [id number] 2.16.84 0.1.253998.3.579.2.1286 1960 Medicare [id number] 2. 16.840.1.834901.19 Unknown Unknown [id number] 2.16.8 40.1.083535.3.579.2.531 Plan of Treatment Date Care Activity Detail Author Start: 01-04-2025 Adult BMI Screening Adult BMI Screening [facility] Start: 12-27-2024 Tobacco Screening Tobacco Screening [facility] Start: 12-26-2024 Depression Screening Depression Screening [facility] Start: 12-23-2024 Adult BMI Screening Adult BMI Screening [facility] Start: 12-23-2024 Tobacco Screening Tobacco Screening [facility] Start: 03-11-2024 End: 03-11-2024 Follow-up encounter 03/11/2024 11:30 AM EDT Follow Up Anticoagulation [facility] Medication Therapy Management [address] [place] [address] [facility] Medication Therapy Management Start: 02-17-2024 End: 02-17-2024 Follow-up encounter 02/17/2024 10:45 AM EDT Follow Up Anticoagulation [facility] Medication Therapy Management [address] [place] [address] [facility] Medication Therapy Management Start: 01-08-2024 End: 01-07-2025 Protime & INR [facility] Work Phone: Start: 12-26-2023 End: 12-26-2023 Follow-up encounter 12/26/2023 11:30 AM EST Follow Up Anticoagulation [facility] Medication Therapy Management [address] [place] [address] [facility] Start: 07-26-2023 COVID-19 Vaccine ( season) COVID-19 Vaccine ( season) [facility] Start: 07-26-2023 Influenza vaccination Influenza Vaccine [facility] Start: 03-06-2019 Urine screening for protein Urine Microalbumin [facility] Start: 2014 Administration of varicella zoster vaccine Zoster (Shingles) Vaccine (1 of 2) [facility] Start: 1983 DTaP,Tdap and Td Vaccines (1 - Tdap) DTaP,Tdap and Td Vaccines (1 - Tdap) [facility] Start: 1982 Adult BMI Follow Up Plan Adult BMI Follow Up Plan [facility] Start: 1982 Adult BMI Screening Adult BMI Screening [facility] Start: 1982 Diabetic foot examination Diabetic Foot Exam [facility] Start: 1976 Depression Screening Depression Screening [facility] Start: 1976 Tobacco Screening Tobacco Screening [facility] Start: 1964 Glaucoma screening Diabetic Ophthalmology Exam [facility] Start: 1964 Tobacco Counseling Tobacco Counseling [facility] Bedside Glucose *Place/Obtain serum glucose if >500(>600 MRH) per glucometer. [facility] CBC W Auto Different ial panel - Blood [facility] Comprehensive metabo lic 2000 panel - Serum or Plasma [facility] Hyperbaric treatment HEALING IN [place] MD [facility] Work Phone: Magnesium [Mass/volu me] in Serum or Plasma [facility] Oxygen Therapy - Kori ntain SpO2: 90%; *CIVIL PROCESS SERVER Guidelines for O2: Yes; Document: \[email or web address]\[email or web address] \EPIC_Reference\Orders\Re spiratory Care Guidelines\CPG Oxygen 2020.pdf [facility] Protime & INR [facility] Work Phone: Problems Active Problems Problem Classification Problem Date Documented Date Episodic/Chronic Cardiac dysrhythmias (15 sources) Unspecified atrial fibrillation; Translations: [Atrial fibrillation] Onset: 01-04-2014 12-04-2023 Chronic Chronic ulcer of skin (2 sources) 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; Translations: [Non-pressure chronic ulcer of unspecified part of unspecified lower leg with unspecified severity] Onset: 12-23-2023 Chronic Complications of surgical procedures or medical care (2 sources) Hypotension due to drugs; Translations: [Hypotension due to drugs] Onset: 02-10-2024 Episodic Congestive heart failure; nonhypertensive (12 sources) Chronic systolic (congestive) heart failure; Translations: [Diastolic heart failure] Onset: 01-24-2022 Chronic Coronary atherosclerosis and other heart disease (2 sources) Atherosclerotic heart disease of [place] coronary artery without angina pectoris; Translations: [Atherosclerotic heart disease of [place] coronary artery without angina pectoris] Onset: 02-10-2024 Chronic Diabetes mellitus with complications (20 sources) Hypoglycemia due to type 2 diabetes mellitus; Translations: [Type 2 diabetes mellitus with hypoglycemia without coma] Onset: 08-28-2021 Resolved: 02-08-2022 Chronic Diabetes mellitus without complication (1 source) Type 2 diabetes mellitus without complications; Translations: [Type 2 diabetes mellitus without complications] Onset: 03-03-2024 Chronic Disorders of lipid metabolism (15 sources) Hyperlipidemia; Translations: [Hyperlipidemia, unspecified] Onset: 11-02-2013 Resolved: 02-08-2022 Chronic Essential hypertension (17 sources) Hypertensive disorder; Translations: [Essential (primary) hypertension] Onset: 11-02-2013 Resolved: 02-08-2022 Chronic Heart valve disorders (1 source) Nonrheumatic mitral (valve) insufficiency; Translations: [NONRHEUMATIC MITRAL INSUFFICIENCY] Onset: 01-26-2022 Chronic Nutritional deficiencies (7 sources) Vitamin D deficiency; Translations: [Vitamin D deficiency, unspecified] Chronic Open wounds of extremities (8 sources) Open wound of lower limb; Translations: [Unspecified open wound, right lower leg, subsequent encounter] Onset: 12-26-2023 01-07-2024 Episodic Other aftercare (4 sources) Encounter for therapeutic drug level monitoring; Translations: [ENC THERAPEUTC DRUG LEVL MONITORING] Onset: 10-25-2022 Episodic Other aftercare (2 sources) penitentiary (current) use of anticoagulants; Translations: [INFANTRYMAN CURRNT USE ANTICOAGULANTS] Onset: 11-27-2022 Episodic Other aftercare (1 source) Anticoagulant effect; Translations: [salvage determiner (current) use of anticoagulants] 01-07-2024 Episodic Other diseases of veins and lymphatics (5 sources) Lymphedema; Translations: [Lymphedema, not elsewhere classified] Onset: 12-26-2023 12-26-2023 Chronic Other diseases of veins and lymphatics (12 sources) Venous insufficiency (chronic) (peripheral); Translations: [Venous [...] 36.0-36.9,adult Z68.36] Onset: 08-28-2021 Resolved: 02-08-2022 Chronic Unclassified (2 sources) Chronic atrial fibrillation, unspecified; Translations: [CHRONIC ATRIAL FIBRILLATION UNSPEC] Onset: 11-27-2022 Unclassified (1 source) Cellulitis with non-healing wounds Onset: 12-26-2023 Unclassified (2 sources) Permanent atrial fibrillation; Translations: [Permanent atrial fibrillation] Onset: 12-11-2022 Unclassified (1 source) Leg Injury Onset: 12-23-2023 Unclassified (1 source) EMS Onset: 12-23-2023 Past or Other Problems Problem Classification Problem Date Documented Da te Episodic/Chronic Administrative/social admission (2 sources) Dietary counseling and surveillance; Translations: [Dietary counseling and surveillance Z71.3] Onset: 08-28-2021 Resolved: 02-08-2022 Episodic Immunizations and screening for infectious disease (1 source) Encounter for immunization Onset: 10-12-2021 Resolved: 10-12-2021 Episodic Mood disorders (3 sources) Mood disorders Onset: 12-26-2023 12-26-2023 Nutritional deficiencies (1 source) Deficiency of other specified B group vitamins Onset: 02-08-2022 Resolved: 02-08-2022 Episodic Other aftercare (7 sources) Long-term current use of insulin; Translations: [salvage determiner (current) use of insulin] Episodic Other aftercare (2 sources) penitentiary (current) use of insulin; Translations: [penitentiary current use of insulin Z79.4] Onset: 08-28-2021 Resolved: 02-08-2022 Episodic Other circulatory disease (1 source) Personal history of other diseases of the circulatory system; Translations: [Personal history of other diseases of the circulatory system] Onset: 12-23-2023 Episodic Other screening for suspected conditions (not mental disorders or infectious disease) (2 sources) Abnormal coagulation profile; Translations: [Other specified abnormal findings of blood chemistry] Onset: 12-23-2023 Episodic Skin and subcutaneous tissue infections (13 sources) Cellulitis; Translations: [Cellulitis, unspecified] Onset: 12-23-2023 12-23-2023 Episodic Procedures Date Procedure Procedure Detail Performing Clinician Start: 02-17-2024 Prothrombin time [employer] Work Phone: Start: 01-30-2024 Prothrombin time [employer] Work Phone: Start: 01-07-2024 Gluc bld gluc mntr d ev cleared fda spec home use Francheska Felipe MD Work Phone: Start: 01-07-2024 Gluc bld gluc mntr d ev cleared fda spec home use Francheska Felipe MD Work Phone: Start: 01-07-2024 Comprehensive metabo lic panel Meche Turcios [employer] Work Phone: Start: 01-06-2024 Gluc bld gluc [...] End: 01-06-2024 Comprehensive metabolic panel Meche Quiñonez [employer] Work Phone: Start: 01-05-2024 Gluc bld gluc [...] Start: 01-05-2024 Comprehensive metabo lic [facility] MECHANIC-RESPIRATORY CLINICIAN Work Phone: Start: 01-04-2024 Gluc bld gluc mntr d ev cleared fda spec home use Francheska Felipe MD Work Phone: Start: 01-04-2024 Gluc bld gluc mntr d ev cleared fda spec home use Francheska Felipe MD Work Phone: Start: 01-04-2024 Radiologic exam ches t single view Jie Camejoалександр [employer] [facility]CH[facility] Work Phone: Start: 01-04-2024 Gluc bld gluc mntr d ev cleared fda spec home use Francheska Felipe MD Work Phone: Start: 01-04-2024 Gluc bld gluc mntr d ev cleared fda spec home use Francheska Felipe MD Work Phone: Start: 01-04-2024 Comprehensive metabo lic panel Meche D Caygi [employer] EQUIPMENT MECHANIC-RESPIRATORY CLINICIAN Work Phone: Start: 01-03-2024 Gluc bld gluc [...] 01-03-2024 Comprehensive metabo lic panel Meche Turcios Olamide [facility] Work Phone: Start: 01-02-2024 Gluc bld gluc [...] 01-02-2024 Comprehensive metabo lic panel Meche Turcios Olamide [facility] Work Phone: Start: 01-01-2024 Gluc bld gluc [...] 01-01-2024 Comprehensive metabo lic panel Meche Quiñonez [facility] Work Phone: Start: 12-31-2023 Gluc bld gluc [...] 12-31-2023 Comprehensive metabo lic panel Meche Quiñonez [facility] Work Phone: Start: 12-30-2023 Gluc bld gluc [...] 12-30-2023 End: 12-30-2023 Comprehensive metabolic panel Meche Karolina Quiñonez X R[employer] EQUIPMENT MECHANIC-RESPIRATORY CLINICIAN Work Phone: Start: 12-29-2023 Gluc bld gluc [...] Start: 12-29-2023 Comprehensive metabo lic panel Meche Karolina Quiñonez [employer] EQUIPMENT MECHANIC-RESPIRATORY CLINICIAN Work Phone: Start: 12-28-2023 Gluc bld gluc [...] Start: 12-28-2023 Comprehensive metabo lic panel Meche Quiñonez X RAY EQUIPMENT MECHANIC-RESPIRATORY CLINICIAN Work Phone: Start: 12-27-2023 Gluc bld gluc mntr d ev cleared fda spec home use Francheska Felipe MD Work Phone: Start: 12-27-2023 End: 12-27-2023 DEBRIDEMENT THIGH/KNEE/CALF Hardeep galvez MD Work Phone: Start: 12-27-2023 Gluc bld gluc mntr d ev cleared fda spec home use Francheska Felipe MD Work Phone: Start: 12-27-2023 Echo tthrc r-t 2d w/wom-mode compl spec&colr d Lashaun Goldsmith [employer] R[employer] EQUIPMENT MECHANIC-RESPIRATORY CLINICIAN Work Phone: Start: 12-27-2023 Drug screen quantita tive vancomycin Francheska Felipe MD Work Phone: Start: 12-27-2023 Gluc bld gluc mntr d ev cleared fda spec home use Francheska Felipe MD Work Phone: Start: 12-27-2023 Gluc bld gluc mntr d ev cleared fda spec home use Francheska Felipe MD Work Phone: Start: 12-27-2023 Comprehensive metabo lic panel Meche Quiñonez X R[employer] EQUIPMENT MECHANIC-RESPIRATORY CLINICIAN Work Phone: Start: 12-27-2023 Iaadiadoo not otherw ise specified Sushma Wong X R[employer] EQUIPMENT MECHANIC-RESPIRATORY CLINICIAN Work Phone: Start: 12-26-2023 Gluc bld gluc mntr d ev cleared fda spec home use Francheska Felipe MD Work Phone: Start: 12-26-2023 C-reactive protein Uziel Wong X RAY EQUIPMENT MECHANIC-RESPIRATORY CLINICIAN Work Phone: Start: 12-26-2023 Hemoglobin glycosylated a1c Sushma Wong X RAY EQUIPMENT MECHANIC-RESPIRATORY CLINICIAN Work Phone: Start: 12-26-2023 Gluc bld gluc mntr d ev cleared fda spec home use Francheska Felipe MD Work Phone: Start: 12-26-2023 Gluc bld gluc mntr d ev cleared fda spec home use Francheska Felipe MD Work Phone: Start: 12-26-2023 Gluc bld gluc mntr d ev cleared fda spec home use Francheska Felipe MD Work Phone: Start: 12-26-2023 Comprehensive metabo lic panel Meche Turcios Olamide X RAY EQUIPMENT MECHANIC-RESPIRATORY CLINICIAN Work Phone: Start: 12-26-2023 Adult depression scr eening assessment [employer] Work Phone: Start: 12-26-2023 Prothrombin time Meche Garywinston X RAY EQUIPMENT MECHANIC-RESPIRATORY CLINICIAN Work Phone: Start: 03-06-2018 Microalbumin [Mass/v olume] in Urine by Test strip [employer] Work Phone: Results Test Name Value Interpretation Reference Range Facility COMPREHENSIVE METABOLIC PANE Roberto 03-03-2024 Albumin [Mass/Vol] 3.3 g/dL Normal 3.2-5.3 [facility] Comment on above: Performed By: #### C BCA, CMP, 3040-3, 80322-1, 63646-1, PINR, [id number], 38291-8 #### [facility] ([id number]) [address] [place] [address]2500 ALP [Catalytic activity/Vol] 101 U/L Normal 39-130 [facility] Comment on above: Performed By: #### C BCA, CMP, 3040-3, 08418-9, 48921-1, PINR, [id number], 50592-0 #### [facility] ([id number]) [address] [place] [address] 33739 ALT [Catalytic activity/Vol] 29 U/L Normal 0-40 [facility] Comment on above: Performed By: #### C BCA, CMP, 3040-3, 99133-8, 99861-3, PINR, [id number], 60435-9 #### [facility] ([id number]) [address] [place] [address] 97954 Anion gap [Moles/Vol] 7 mmol/L Normal 5-15 [facility] Comment on above: Performed By: #### C BCA, CMP, 3040-3, 66032-4, 16948-7, PINR, 58143-2, 11074-7 #### [facility] ([id number]) [address] [place] [address] 33533 AST [Catalytic activity/Vol] 28 U/L Normal 0-41 [facility] Comment on above: Performed By: #### C BCA, CMP, 3040-3, 50582-5, 90647-1, PINR, 88162-6, 37322-5 #### [facility] ([id number]) [address] [place] [address] 88272 Bilirubin [Mass/Vol] 0.5 mg/dL Normal 0.3-1.2 [facility] Comment on above: Performed By: #### C BCA, CMP, 3040-3, 34200-9, 45875-1, PINR, 66471-4, 84723-7 #### [facility] ([id number]) [address] [place] [address] 39898 Calcium [Mass/Vol] 8.9 mg/dL Normal 8.5-10.5 [facility] Comment on above: Performed By: #### C BCA, CMP, 3040-3, 29203-7, 92515-4, PINR, 33191-7, 35375-4 #### [facility] ([id number]) [address] [place] [address] 30996 Chloride [Moles/Vol] 104 mmol/L Normal 98-109 [facility] Comment on above: Performed By: #### C BCA, CMP, 3040-3, 56104-5, 20629-6, PINR, [id number], 39791-8 #### [facility] ([id number]) [address] [place] [address] CO2 [Moles/Vol] 31 mmol/L Normal 22-32 [facility] Comment on above: Performed By: #### C BCA, CMP, 3040-3, 29395-0, 61571-6, PINR, 88945-9, 73568-0 #### [facility] ([id number]) [address] [place] [address] 22835 Creatinine [Mass/Vol] 0.76 mg/dL Normal 0.60-1.30 [facility] Comment on above: Result Comment: METH OD TRACEABLE TO IDMS STANDARD Performed By: #### C BCA, CMP, 3040-3, 25812-8, 09402-8, PINR, 41782-1, 00804-8 #### [facility] ([id number]) [address] [place] [address] 68046 eGFR (CKD-EPI) NON-RACE DEPENDENT >90 Normal >59 [facility] Comment on above: Result Comment: Reported eGFR is based on the CKD-EPI 2020 equation that does not use a race coefficient. Performed By: #### C BCA, CMP, 3040-3, 61578-1, 64351-6, PINR, 46519-0, 76183-0 #### [facility] ([id number]) [address] [place] [address]1673 Glucose [Mass/Vol] 116 mg/dL High 65-99 [facility] Comment on above: Performed By: #### C BCA, CMP, 3040-3, 29121-4, 97784-9, PINR, 26454-5, 87760-3 #### [facility] ([id number]) [address] [place] [address]183 Potassium [Moles/Vol] 4.0 mmol/L Normal 3.5-5.0 [facility] Comment on above: Performed By: #### C BCA, CMP, 3040-3, 54382-5, 40580-9, PINR, 86142-9, 54370-1 #### [facility] ([id number]) [address] [place] [address] 64825 Protein [Mass/Vol] 6.8 g/dL Normal 6.0-8.0 [facility] Comment on above: Performed By: #### C BCA, CMP, 3040-3, 82992-2, 18776-5, PINR, 89092-8, 88235-2 #### [facility] ([id number]) [address] [place] [address]24 Sodium [Moles/Vol] 142 mmol/L Normal 134-146 [facility] Comment on above: Performed By: #### C BCA, CMP, 3040-3, 61681-8, 88328-4, PINR, 94112-2, 85404-8 #### [facility] ([id number]) [address] [place] [address] 19636 Urea nitrogen [Mass/Vol] 22 mg/dL Normal 5-23 [facility] Comment on above: Performed By: #### C BCA, CMP, 3040-3, 94759-4, 02128-3, PINR, 09392-8, 08270-6 #### [facility] ([id number]) [address] [place] [address]134 HGB A1C (GLYCO-HGB)on 2023 Glucose [Mass/Vol] 123 mg/dL Normal [facility] Comment on above: Performed By: #### C BCA, CMP, 3040-3, 53665-9, 66507-8, PINR, 61484-6, 10996-9 #### [facility] ([id number]) [address] [place] [address] 52270 HbA1c (Bld) [Mass fraction] 5.9 % High 4.4-5.6 [facility] Comment on above: Result Comment: NOTE ADA Guidelines Result HgbA1c Normal : less than 5.7 % Prediabetes : 5.7 % to 6.4 % Diabetes : > 6.4 % Use with caution in patients with abnormal hemoglobin variants as the half-life of red blood cells and in vivo glycation rates are affected. Performed By: #### C MATHEW, CARMEN, 3040-3, 99660-1, 08731-5, PINR, 65767-2, 73432-2 #### [facility] ([id number]) [address] [place] [address], [place] [address] POCT Protime / INRon 024 INR Coag (PPP) [Relative time] 2.3 {INR} Abnormal 0.8 - 1.2 [facility] [employer] IP Interpretation and review of laboratory results Abnormal [facility] Press-sense System Office Visiton 02-10-2024 Follow-up visit [id number] Hipolito Daniels 1965 M Date Provider Department Center 02/10/2024 KENDY MITCHELL [facility] Family History Problem Relation Age of Onset Hypertension Mother Diabetes Mother Stroke Father Cancer Father Family Status - Relation Status Age at Mother Father Level of Service:13125 PA OFFICE/OUTPATIENT ESTABLISHED MOD MDM 30 MIN Normal [facility] POCT Protime / INRon 024 INR Coag (PPP) [Relative time] 1.8 {INR} Abnormal 0.8 - 1.2 [facility] Interpretation and review of laboratory results Abnormal [facility] [employer] [facility] Glucose Glucometer (BldC) [M ass/Vol]on 01-08-2024 Glucose [Mass/Vol] 242 mg/dL High 65-99 [facility] CBC AND AUTO DIFFon 01-07-20 24 ABSOLUTE BASOPHIL 0.0 X10E9/L Normal 0.0-0.2 [facility] Comment on above: Performed By: #### C MATHEW, CARMEN, 79696-0, PINR #### [facility] ([id number]) [address] [place] [address] ABSOLUTE NEUTROPHIL 4.5 X10E9/L Normal 1.5-6.6 [facility] Comment on above: Performed By: #### C BCA, CMP, , PINR #### [facility] ([id number]) [address], [address] [place] [address] Basophils/100 WBC (Bld) 0.7 % Normal [facility] Comment on above: Performed By: #### C BCA, CMP, , PINR #### [facility] ([id number]) [address], [address] [place] [address] Eosinophils (Bld) [#/Vol] 0.4 10*3/uL Normal 0.0-0.4 [facility] Comment on above: Performed By: #### C BCA, CMP, , PINR #### [facility] ([id number]) [address], [address] [place] [address] Eosinophils/100 WBC (Bld) 5.9 % Normal [facility] Comment on above: Performed By: #### C BCA, CMP, , PINR #### [facility] ([id number]) [address], [address] [place] [address] Erythrocyte distribution width (RBC) [Ratio] 16.2 % High 11.5-15.0 [facility] Comment on above: Performed By: #### C BCA, CMP, , PINR #### [facility] ([id number]) [address], [address] [place] [address] Hematocrit (Bld) [Volume fraction] 34.7 % Low 39-49 [facility] Comment on above: Performed By: #### C BCA, CMP, , PINR #### [facility] ([id number]) [address], [address] [place] [address] Hemoglobin (Bld) [Mass/Vol] 11.4 g/dL Low 13.0-17.0 [facility] Comment on above: Performed By: #### Aquiles CARMONA CMP, , PINR #### [facility] ([id number]) [address], [facility] [address] [place] [address] Lymphocytes (Bld) [#/Vol] 0.8 10*3/uL Low 1.0-3.5 [facility] Comment on above: Performed By: #### Aquiles CARMONA CMP, , PINR #### [facility] ([id number]) [address], [facility] [address] [place] [address] Lymphocytes/100 WBC (Bld) 12.4 % Normal [facility] Comment on above: Performed By: #### Aquiles CARMONA CMP, , PINR #### [facility] ([id number]) [address], [facility] [address] [place] [address] MCH (RBC) [Entitic mass] 31.3 pg Normal 27-34 [facility] Comment on above: Performed By: #### Aquiles CARMONA [facility], , PINR #### [facility] ([id number]) [address], [facility] [address] [place] [address] MCHC (RBC) [Mass/Vol] 33.0 g/dL Normal 32-36 [facility] Comment on above: Performed By: #### Aquiles CARMONA CMP, , PINR #### [facility] ([id number]) [address], [facility] [address] [place] [address] MCV (RBC) [Entitic vol] 95 fL Normal 80-100 [facility] Comment on above: Performed By: #### Aquiles CARMONA, CMP, , PINR #### [facility] ([id number]) [address], [facility] [address] [place] [address] Monocytes (Bld) [#/Vol] 0.9 10*3/uL Normal 0-0.9 [facility] Comment on above: Performed By: #### C CARMEN CARMONA, , PINR #### [facility] ([id number]) [address], [address] [place] [address] Monocytes/100 WBC (Bld) 14.2 % Normal [facility] Comment on above: Performed By: #### C MATHEW CMP, , PINR #### [facility] ([id number]) [address], [address] [place] [address] Neutrophils/100 WBC (Bld) 66.8 % Normal [facility] Comment on above: Performed By: #### Aquiles CARMONA CMP, , PINR #### [facility] ([id number]) [address], [address] [place] [address] Platelet mean volume (Bld) [Entitic vol] 8.1 fL Normal 7-12 [facility] Comment on above: Performed By: #### Aquiles CARMONA CMP, , PINR #### [facility] ([id number]) [address], [address] [place] [address] Platelets (Bld) [#/Vol] 286 10*3/uL Normal 150-450 [facility] Comment on above: Performed By: #### Aquiles CARMONA CMP, , PINR #### [facility] ([id number]) [address], [address] [place] [address] RBC COUNT 3.65 X10E12/L Low 4.10-5.[address] [facility] Comment on above: Performed By: #### Aquiles CARMONA, CMP, , PINR #### [facility] ([id number]) [address], [address] [place] [address] WBC (Bld) [#/Vol] 6.7 10*3/uL Normal 4.0-11.0 [facility] Comment on above: Performed By: #### C BCA, CMP, , PINR #### [facility] ([id number]) [address], [address] [place] [address] CBC auto differentialon 12-26 Basophils (Bld) [#/Vol] 0.0 10*3/uL [facility] Neutrophils (Bld) [#/Vol] 4.5 10*3/uL [facility] RBC (Bld) [#/Vol] 3.65 10*6/uL Low [facility] WBC corrected for nucl RBC Auto (Bld) [#/Vol] 6.7 [facility] COMPREHENSIVE METABOLIC PANE Roberto 01-07-2024 Albumin [Mass/Vol] 2.1 g/dL Low 3.2-5.3 [facility] Comment on above: Performed By: #### C BCA, CMP, , PINR #### [facility] ([id number]) [address], [address] [place] [address] ALP [Catalytic activity/Vol] 289 U/L High 39-130 [facility] Comment on above: Performed By: #### C BCA, CMP, , PINR #### [facility] ([id number]) [address], [address] [place] [address] ALT [Catalytic activity/Vol] 59 U/L High 0-40 [facility] Comment on above: Performed By: #### C BCA, CMP, , PINR #### [facility] ([id number]) [address], [address] [place] [address] Anion gap [Moles/Vol] 6 mmol/L Normal 5-15 [facility] Comment on above: Performed By: #### C BCA, CMP, , PINR #### [facility] ([id number]) [address], [address] [place] [address] AST [Catalytic activity/Vol] 54 U/L High 0-41 [facility] Comment on above: Performed By: #### C BCA, CMP, , PINR #### [facility] ([id number]) [address], [address] [place] [address] Bilirubin [Mass/Vol] 0.9 mg/dL Normal 0.3-1.2 [facility] Comment on above: Performed By: #### C BCA, CMP, , PINR #### [facility] ([id number]) [address], [address] [place] [address] Calcium [Mass/Vol] 8.2 mg/dL Low 8.5-10.5 [facility] Comment on above: Performed By: #### C BCA, CMP, , PINR #### [facility] ([id number]) [address], [address] [place] [address] Chloride [Moles/Vol] 100 mmol/L Normal 98-109 [facility] Comment on above: Performed By: #### C BCA, CMP, , PINR #### [facility] ([id number]) [address], [address] [place] [address] CO2 [Moles/Vol] 38 mmol/L High 22-32 [facility] Comment on above: Performed By: #### C BCA, CMP, , PINR #### [facility] ([id number]) [address], [address] [place] [address] Creatinine [Mass/Vol] 0.80 mg/dL Normal 0.60-1.30 [facility] Comment on above: Result Comment: METH OD TRACEABLE TO IDMS STANDARD Performed By: #### C BCA, CMP, , PINR #### [facility] ([id number]) [address], [address] [place] [address] eGFR (CKD-EPI) NON-RACE DEPENDENT >90 Normal >59 [facility] Comment on above: Result Comment: Reported eGFR is based on the CKD-EPI 2020 equation that does not use a race coefficient. Performed By: #### C CARMEN CARMONA, , PINR #### [facility] ([id number]) [address], [address] [place] [address] Glucose [Mass/Vol] 77 mg/dL Normal 65-99 [facility] Comment on above: Performed By: #### C CARMEN CARMONA, , PINR #### [facility] ([id number]) [address], [address] [place] [address] Potassium [Moles/Vol] 4.3 mmol/L Normal 3.5-5.0 [facility] Comment on above: Performed By: #### C CARMEN CRAMONA, , PINR #### [facility] ([id number]) [address], [address] [place] [address] Protein [Mass/Vol] 5.4 g/dL Low 6.0-8.0 [facility] Comment on above: Performed By: #### C [facility], , PINR #### [facility] ([id number]) [address], [address] [place] [address] Sodium [Moles/Vol] 144 mmol/L Normal 134-146 [facility] Comment on above: Performed By: #### C CARMEN CARMONA, , PINR #### [facility] ([id number]) [address], [address] [place] [address] Urea nitrogen [Mass/Vol] 22 mg/dL Normal 5-23 [facility] Comment on above: Performed By: #### C CARMEN CARMONA, , PINR #### [facility] ([id number]) [address], [address] [place] [address] Comprehensive metabolic pane roberto 01-07-2024 ALT No additional P-5'-P [Catalytic activity/Vol] 59 U/L High 0 - 40 U/L [facility] eGFR (CKD-EPI)non-race dependent - PINF [facility] Glucose Glucometer (BldC) [M ass/Vol]on 01-07-2024 Glucose [Mass/Vol] 72 mg/dL 65 - 99 mg/dL [facility] Glucose [Mass/Vol] 72 mg/dL Normal 65-99 [facility] Glucose [Mass/Vol] 242 mg/dL High 65 - 99 mg/dL [facility] Interpretation and review of laboratory results Abnormal [facility] Laboratory - Chemistry and C hemistry - challengeon 01-07-2024 Magnesium [Mass/Vol] 1.9 mg/dL Normal 1.8-2.6 [facility] Comment on above: Performed By: #### Aquiles CARMONA CMP, 88516-2, PINR #### [facility] ([id number]) [address], [address] [place] [address] No Panel Informationon 01-07 Interpretation and review of laboratory results Abnormal [facility] PROTIME AND INRon 01-07-2024 INR Coag (PPP) [Relative time] 1.8 {INR} High 0.8-1.1 [facility] Comment on above: Performed By: #### Aquiles CARMONA CMP, 01707-4, PINR #### [facility] ([id number]) [address], [address] [place] [address] PT Coag (PPP) [Time] 20.4 s High 9.8-13.2 [facility] Comment on above: Performed By: #### Aquiles CARMONA CMP, 64557-6, PINR #### [facility] ([id number]) [address] [address] [address] [place] [address] CBC AND AUTO DIFFon 01-06-20 24 ABSOLUTE BASOPHIL 0.0 X10E9/L Normal 0.0-0.2 [facility] Comment on above: Performed By: #### C BCA, CMP, , PINR #### [facility] ([id number]) [address], [address] [place] [address] ABSOLUTE NEUTROPHIL 4.1 X10E9/L Normal 1.5-6.6 [facility] Comment on above: Performed By: #### C BCA, CMP, , PINR #### [facility] ([id number]) [address], [address] [place] [address] Basophils/100 WBC (Bld) 0.6 % Normal [facility] Comment on above: Performed By: #### C BCA, CMP, , PINR #### [facility] ([id number]) [address], [address] [place] [address] Eosinophils (Bld) [#/Vol] 0.4 10*3/uL Normal 0.0-0.4 [facility] Comment on above: Performed By: #### C BCA, CMP, , PINR #### [facility] ([id number]) [address], [address] [place] [address] Eosinophils/100 WBC (Bld) 6.3 % Normal [facility] Comment on above: Performed By: #### C BCA, CMP, , PINR #### [facility] ([id number]) [address], [address] [place] [address] Erythrocyte distribution width (RBC) [Ratio] 16.3 % High 11.5-15.0 [facility] Comment on above: Performed By: #### C BCA, CMP, , PINR #### [facility] ([id number]) [address], [address] [place] [address] Hematocrit (Bld) [Volume fraction] 31.8 % Low 39-49 [facility] Comment on above: Performed By: #### C BCA, CMP, , PINR #### [facility] ([id number]) [address], [address] [place] [address] Hemoglobin (Bld) [Mass/Vol] 10.7 g/dL Low 13.0-17.0 [facility] Comment on above: Performed By: #### C BCA CMP, , PINR #### [facility] ([id number]) [address], [facility] [address] [place] [address] Lymphocytes (Bld) [#/Vol] 0.8 10*3/uL Low 1.0-3.5 [facility] Comment on above: Performed By: #### C MATHEW, CMP, , PINR #### [facility] ([id number]) [address] [place] [address] Lymphocytes/100 WBC (Bld) 12.3 % Normal [facility] Comment on above: Performed By: #### C BCA, CMP, , PINR #### [facility] ([id number]) [address], [facility] [address] [place] [address] MCH (RBC) [Entitic mass] 31.2 pg Normal 27-34 [facility] Comment on above: Performed By: #### Aquiles CARMONA CMP, , PINR #### [facility] ([id number]) [address], [address] [place] [address] MCHC (RBC) [Mass/Vol] 33.5 g/dL Normal 32-36 [facility] Comment on above: Performed By: #### Aquiles BCA, CMP, , PINR #### [facility] ([id number]) [address], [address] [place] [address] MCV (RBC) [Entitic vol] 93 fL Normal 80-100 [facility] Comment on above: Performed By: #### C BCA, CMP, , PINR #### [facility] ([id number]) [address], [address] [place] [address] Monocytes (Bld) [#/Vol] 0.9 10*3/uL Normal 0-0.9 [facility] Comment on above: Performed By: #### C BCA, CMP, , PINR #### [facility] ([id number]) [address], [address] [place] [address] Monocytes/100 WBC (Bld) 14.9 % Normal [facility] Comment on above: Performed By: #### C BCA, CMP, , PINR #### [facility] ([id number]) [address], [address] [place] [address] Neutrophils/100 WBC (Bld) 65.9 % Normal [facility] Comment on above: Performed By: #### C BCA, CMP, , PINR #### [facility] ([id number]) [address], [address] [place] [address] Platelet mean volume (Bld) [Entitic vol] 7.9 fL Normal 7-12 [facility] Comment on above: Performed By: #### C BCA, CMP, , PINR #### [facility] ([id number]) [address], [address] [place] [address] Platelets (Bld) [#/Vol] 249 10*3/uL Normal 150-450 [facility] Comment on above: Performed By: #### C BCA, CMP, , PINR #### [facility] ([id number]) [address], [address] [place] [address] RBC COUNT 3.41 X10E12/L Low 4.10-5.[address] [facility] Comment on above: Performed By: #### C BCA, CMP, , PINR #### [facility] ([id number]) [address], [address] [place] [address] WBC (Bld) [#/Vol] 6.3 10*3/uL Normal 4.0-11.0 [facility] Comment on above: Performed By: #### C BCA, CMP, , PINR #### [facility] ([id number]) [address], [address] [place] [address] CBC auto differentialon 12-26 Basophils (Bld) [#/Vol] 0.0 10*3/uL [facility] Basophils/100 WBC (Bld) 0.6 % [facility] Eosinophils (Bld) [#/Vol] 0.4 10*3/uL [facility] Eosinophils/100 WBC (Bld) 6.3 % [facility] Erythrocyte distribution width (RBC) [Ratio] 16.3 % High 11.5 - 15.0 % [facility] Hematocrit (Bld) [Volume fraction] 31.8 % Low 39 - 49 % [facility] Hemoglobin (Bld) [Mass/Vol] 10.7 g/dL Low 13.0 - 17.0 g/dL [facility] Lymphocytes (Bld) [#/Vol] 0.8 10*3/uL Low [facility] Lymphocytes/100 WBC (Bld) 12.3 % [facility] MCH (RBC) [Entitic mass] 31.2 pg 27 - 34 pg [facility] MCHC (RBC) [Mass/Vol] 33.5 g/dL 32 - 36 g/dL [facility] MCV (RBC) [Entitic vol] 93 fL 80 - 100 fL [facility] Monocytes (Bld) [#/Vol] 0.9 10*3/uL [facility] Monocytes/100 WBC (Bld) 14.9 % [facility] Neutrophils (Bld) [#/Vol] 4.1 10*3/uL [facility] Neutrophils/100 WBC (Bld) 65.9 % [facility] Platelet mean volume (Bld) [Entitic vol] 7.9 fL 7 - 12 fL [facility] Platelets (Bld) [#/Vol] 249 10*3/uL [facility] RBC (Bld) [#/Vol] 3.41 10*6/uL Low [facility] WBC corrected for nucl RBC Auto (Bld) [#/Vol] 6.3 [facility] COMPREHENSIVE METABOLIC PANE Roberto 01-06-2024 Albumin [Mass/Vol] 2.1 g/dL Low 3.2-5.3 [facility] Comment on above: Performed By: #### C BCA, CMP, , PINR #### [facility] ([id number]) [address], [address] [place] [address] ALP [Catalytic activity/Vol] 288 U/L High 39-130 [facility] Comment on above: Performed By: #### C BCA, CMP, , PINR #### [facility] ([id number]) [address], [address] [place] [address] ALT [Catalytic activity/Vol] 61 U/L High 0-40 [facility] Comment on above: Performed By: #### C BCA, CMP, , PINR #### [facility] ([id number]) [address], [address] [place] [address] Anion gap [Moles/Vol] 2 mmol/L Low 5-15 [facility] Comment on above: Performed By: #### C BCA, CMP, , PINR #### [facility] ([id number]) [address], [address] [place] [address] AST [Catalytic activity/Vol] 46 U/L High 0-41 [facility] Comment on above: Performed By: #### C BCA, CMP, , PINR #### [facility] ([id number]) [address], [address] [place] [address] Bilirubin [Mass/Vol] 0.8 mg/dL Normal 0.3-1.2 [facility] Comment on above: Performed By: #### C BCA, CMP, , PINR #### [facility] ([id number]) [address], [address] [place] [address] Calcium [Mass/Vol] 8.1 mg/dL Low 8.5-10.5 [facility] Comment on above: Performed By: #### C BCA, CMP, , PINR #### [facility] ([id number]) [address], [address] [place] [address] Chloride [Moles/Vol] 102 mmol/L Normal 98-109 [facility] Comment on above: Performed By: #### C BCA, CMP, , PINR #### [facility] ([id number]) [address], [address] [place] [address] CO2 [Moles/Vol] 38 mmol/L High 22-32 [facility] Comment on above: Performed By: #### C BCA, CMP, , PINR #### [facility] ([id number]) [address], [address] [place] [address] Creatinine [Mass/Vol] 0.71 mg/dL Normal 0.60-1.30 [facility] Comment on above: Result Comment: METH OD TRACEABLE TO IDMS STANDARD Performed By: #### C BCA, CMP, , PINR #### [facility] ([id number]) [address], [address] [place] [address] eGFR (CKD-EPI) NON-RACE DEPENDENT >90 Normal >59 [facility] Comment on above: Result Comment: Reported eGFR is based on the CKD-EPI 2020 equation that does not use a race coefficient. Performed By: #### C BCA, CMP, , PINR #### [facility] ([id number]) [address], [address] [place] [address] Glucose [Mass/Vol] 91 mg/dL Normal 65-99 [facility] Comment on above: Performed By: #### C [facility], , PINR #### [facility] ([id number]) [address], [address] [place] [address] Potassium [Moles/Vol] 4.2 mmol/L Normal 3.5-5.0 [facility] Comment on above: Performed By: #### C MATHEW CMP, , PINR #### [facility] ([id number]) [address], [address] [place] [address] Protein [Mass/Vol] 4.9 g/dL Low 6.0-8.0 [facility] Comment on above: Performed By: #### C MATHEW CMP, , PINR #### [facility] ([id number]) [address], [address] [place] [address] Sodium [Moles/Vol] 142 mmol/L Normal 134-146 [facility] Comment on above: Performed By: #### C [facility], , PINR #### [facility] ([id number]) [address], [address] [place] [address] Urea nitrogen [Mass/Vol] 22 mg/dL Normal 5-23 [facility] Comment on above: Performed By: #### Aquiles CARMONA, CMP, , PINR #### [facility] ([id number]) [address], [address] [place] [address] Comprehensive metabolic pane roberto 01-06-2024 ALT No additional P-5'-P [Catalytic activity/Vol] 61 U/L High 0 - 40 U/L [facility] eGFR (CKD-EPI)non-race dependent - PINF [facility] Glucose Glucometer (BldC) [M ass/Vol]on 01-06-2024 Glucose [Mass/Vol] 80 mg/dL Normal 65-99 [facility] Glucose [Mass/Vol] 88 mg/dL 65 - 99 mg/dL [facility] Glucose [Mass/Vol] 88 mg/dL Normal 65-99 [facility] Glucose [Mass/Vol] 178 mg/dL High 65 - 99 mg/dL [facility] Glucose [Mass/Vol] 178 mg/dL High 65-99 [facility] Glucose [Mass/Vol] 126 mg/dL High 65 - 99 mg/dL [facility] Glucose [Mass/Vol] 126 mg/dL High 65-99 [facility] Interpretation and review of laboratory results Abnormal [facility] Interpretation and review of laboratory results Abnormal [facility] Laboratory - Chemistry and C hemistry - challengeon 01-06-2024 Magnesium [Mass/Vol] 1.8 mg/dL Normal 1.8-2.6 [facility] Comment on above: Performed By: #### Aquiles CARMONA CMP, , PINR #### [facility] ([id number]) [address], [address] [place] [address] No Panel Informationon 01-06 Interpretation and review of laboratory results Abnormal [facility] PROTIME AND INRon 01-06-2024 INR Coag (PPP) [Relative time] 2.1 {INR} High 0.8-1.1 [facility] Comment on above: Performed By: #### Aquiles CARMONA CMP, , PINR #### [facility] ([id number]) [address] [place] [address] PT Coag (PPP) [Time] 23.3 s High 9.8-13.2 [facility] Comment on above: Performed By: #### Aquiles CARMONA CMP, 40600-8, PINR #### [facility] ([id number]) [address], [address] [place] [address] CBC AND AUTO DIFFon 01-05-20 24 ABSOLUTE BASOPHIL 0.1 X10E9/L Normal 0.0-0.2 [facility] Comment on above: Performed By: #### C [facility], , PINR #### [facility] ([id number]) [address], [address] [place] [address] ABSOLUTE NEUTROPHIL 5.6 X10E9/L Normal 1.5-6.6 [facility] Comment on above: Performed By: #### C CARMEN CARMONA, , PINR #### [facility] ([id number]) [address], [address] [place] [address] Basophils/100 WBC (Bld) 0.9 % Normal [facility] Comment on above: Performed By: #### Aquiles CARMONA CMP, , PINR #### [facility] ([id number]) [address], [address] [place] [address] Eosinophils (Bld) [#/Vol] 0.4 10*3/uL Normal 0.0-0.4 [facility] Comment on above: Performed By: #### Aquiles [facility], , PINR #### [facility] ([id number]) [address], [address] [place] [address] Eosinophils/100 WBC (Bld) 5.2 % Normal [facility] Comment on above: Performed By: #### Aquiles CARMONA CMP, , PINR #### [facility] ([id number]) [address], [address] [place] [address] Erythrocyte distribution width (RBC) [Ratio] 16.2 % High 11.5-15.0 [facility] Comment on above: Performed By: #### C MATHEW CMP, , PINR #### [facility] ([id number]) [address], [address] [place] [address] Hematocrit (Bld) [Volume fraction] 32.7 % Low 39-49 [facility] Comment on above: Performed By: #### C MATHEW CMP, , PINR #### [facility] ([id number]) [address] [place] [address] Hemoglobin (Bld) [Mass/Vol] 11.1 g/dL Low 13.0-17.0 [facility] Comment on above: Performed By: #### Aquiles CARMONA CMP, , PINR #### [facility] ([id number]) [address] [place] [address] Lymphocytes (Bld) [#/Vol] 0.6 10*3/uL Low 1.0-3.5 [facility] Comment on above: Performed By: #### C MATHEW CMP, , PINR #### [facility] ([id number]) [address] [place] [address] Lymphocytes/100 WBC (Bld) 8.2 % Normal [facility] Comment on above: Performed By: #### Aquiles CARMONA CMP, , PINR #### [facility] ([id number]) [address] [place] [address] MCH (RBC) [Entitic mass] 31.7 pg Normal 27-34 [facility] Comment on above: Performed By: #### Aquiles CARMONA CMP, , PINR #### [facility] ([id number]) [address], [address] [place] [address] MCHC (RBC) [Mass/Vol] 33.8 g/dL Normal 32-36 [facility] Comment on above: Performed By: #### C BCA, CMP, , PINR #### [facility] ([id number]) [address] [place] [address] MCV (RBC) [Entitic vol] 94 fL Normal 80-100 [facility] Comment on above: Performed By: #### C BCA, CMP, , PINR #### [facility] ([id number]) [address] [place] [address] Monocytes (Bld) [#/Vol] 0.9 10*3/uL Normal 0-0.9 [facility] Comment on above: Performed By: #### C BCA, CMP, , PINR #### [facility] ([id number]) [address] [place] [address] Monocytes/100 WBC (Bld) 12.2 % Normal [facility] Comment on above: Performed By: #### C BCA, CMP, , PINR #### [facility] ([id number]) [address] [place] [address] Neutrophils/100 WBC (Bld) 73.5 % Normal [facility] Comment on above: Performed By: #### C BCA, CMP, , PINR #### [facility] ([id number]) [address] [place] [address] Platelet mean volume (Bld) [Entitic vol] 8.5 fL Normal 7-12 [facility] Comment on above: Performed By: #### C BCA, CMP, , PINR #### [facility] ([id number]) [address] [place] [address] Platelets (Bld) [#/Vol] 247 10*3/uL Normal 150-450 [facility] Comment on above: Performed By: #### C BCA, CMP, , PINR #### [facility] ([id number]) [address] [place] [address] RBC COUNT 3.50 X10E12/L Low 4.10-5.[address] [facility] Comment on above: Performed By: #### C BCA, CMP, , PINR #### [facility] ([id number]) [address] [place] [address] WBC (Bld) [#/Vol] 7.7 10*3/uL Normal 4.0-11.0 [facility] Comment on above: Performed By: #### C BCA, CMP, 83274-3, PINR #### [facility] ([id number]) [address] [place] [address] CBC auto differentialon 12-26 Basophils (Bld) [#/Vol] 0.1 10*3/uL [facility] Neutrophils (Bld) [#/Vol] 5.6 10*3/uL [facility] RBC (Bld) [#/Vol] 3.50 10*6/uL Low [facility] WBC corrected for nucl RBC Auto (Bld) [#/Vol] 7.7 [facility] COMPREHENSIVE METABOLIC PANE Roberto 01-05-2024 Albumin [Mass/Vol] 2.3 g/dL Low 3.2-5.3 [facility] Comment on above: Performed By: #### 8 2477-1, 02072-9, 1988-03 #### [facility] ([id number]) [address], [address] [place] [address] ALP [Catalytic activity/Vol] 315 U/L High 39-130 [facility] Comment on above: Performed By: #### 8 2477-1, 62437-6, 1988-03 #### [facility] ([id number]) [address], [address] [place] [address] ALT [Catalytic activity/Vol] 72 U/L High 0-40 [facility] Comment on above: Performed By: #### 8 2477-1, 08669-7, 1988-03 #### [facility] ([id number]) [address], [address] [place] [address] Anion gap [Moles/Vol] 5 mmol/L Normal 5-15 [facility] Comment on above: Performed By: #### 8 2477-1, 16438-2, 1988-03 #### [facility] ([id number]) [address], [address] [place] [address] AST [Catalytic activity/Vol] 49 U/L High 0-41 [facility] Comment on above: Performed By: #### 8 2477-1, , 1988-03 #### [facility] ([id number]) [address], [address] [place] [address] Bilirubin [Mass/Vol] 0.8 mg/dL Normal 0.3-1.2 [facility] Comment on above: Performed By: #### 8 2477-1, 72397-1, 1988-03 #### [facility] ([id number]) [address], [address] [place] [address] Calcium [Mass/Vol] 8.1 mg/dL Low 8.5-10.5 [facility] Comment on above: Performed By: #### 8 2477-1, 55134-8, 1988-03 #### [facility] ([id number]) [address], [address] [place], [place] [address] Chloride [Moles/Vol] 102 mmol/L Normal 98-109 [facility] Comment on above: Performed By: #### 8 2477-1, 43052-2, 1988-03 #### [facility] ([id number]) [address], [address] [place] [address] CO2 [Moles/Vol] 37 mmol/L High 22-32 [facility] Comment on above: Performed By: #### 8 2477-1, 63875-0, 1988-03 #### [facility] ([id number]) [address], [address] [place] [address] Creatinine [Mass/Vol] 0.78 mg/dL Normal 0.60-1.30 [facility] Comment on above: Result Comment: METH OD TRACEABLE TO IDMS STANDARD Performed By: #### 8 2477-1, 87080-1, 1988-03 #### [facility] ([id number]) [address], [address] [place] [address] eGFR (CKD-EPI) NON-RACE DEPENDENT >90 Normal >59 [facility] Comment on above: Result Comment: Reported eGFR is based on the CKD-EPI 2020 equation that does not use a race coefficient. Performed By: #### 8 2477-1, 94790-5, 1988-03 #### [facility] ([id number]) [address], [address] [place] [address] Glucose [Mass/Vol] 117 mg/dL High 65-99 [facility] Comment on above: Performed By: #### 8 2477-1, 56445-9, 1988-03 #### [facility] ([id number]) [address], [address] [place] [address] Potassium [Moles/Vol] 4.3 mmol/L Normal 3.5-5.0 [facility] Comment on above: Performed By: #### 8 2477-1, 34679-9, 1988-03 #### [facility] ([id number]) [address], [address] [place] [address] Protein [Mass/Vol] 5.4 g/dL Low 6.0-8.0 [facility] Comment on above: Performed By: #### 8 2477-1, 27606-8, 1988-03 #### [facility] ([id number]) [address], [address] [place] [address] Sodium [Moles/Vol] 144 mmol/L Normal 134-146 [facility] Comment on above: Performed By: #### 8 2477-1, 26955-5, 1988-03 #### [facility] ([id number]) [address], [address] [place] [address] Urea nitrogen [Mass/Vol] 26 mg/dL High 5-23 [facility] Comment on above: Performed By: #### 8 2477-1, 47163-3, 1988-03 #### [facility] ([id number]) [address], [address] [place] [address] Comprehensive metabolic pane roberto 01-05-2024 Albumin [Mass/Vol] 2.3 g/dL Low 3.2 - 5.3 g/dL [facility] ALP [Catalytic activity/Vol] 315 U/L High 39 - 130 U/L [facility] ALT No additional P-5'-P [Catalytic activity/Vol] 72 U/L High 0 - 40 U/L [facility] Anion gap [Moles/Vol] 5 mmol/L 5 - 15 mmol/L [facility] AST [Catalytic activity/Vol] 49 U/L High 0 - 41 U/L [facility] Bilirubin [Mass/Vol] 0.8 mg/dL 0.3 - 1 .2 mg/dL [facility] Calcium [Mass/Vol] 8.1 mg/dL Low 8.5 - 10. 5 mg/dL [facility] Chloride [Moles/Vol] 102 mmol/L 98 - 10 9 mmol/L [facility] CO2 [Moles/Vol] 37 mmol/L High 22 - 32 mmol/L [facility] Creatinine [Mass/Vol] 0.78 mg/dL 0.60 - 1.30 mg/dL [facility] eGFR (CKD-EPI)non-race dependent - PINF [facility] Glucose [Mass/Vol] 117 mg/dL High 65 - 99 mg/dL [facility] Potassium [Moles/Vol] 4.3 mmol/L 3.5 - 5.0 mmol/L [facility] Protein [Mass/Vol] 5.4 g/dL Low 6.0 - 8.0 g/dL [facility] Sodium [Moles/Vol] 144 mmol/L 134 - 146 mmol/L [facility] Urea nitrogen [Mass/Vol] 26 mg/dL High 5 - 23 mg/dL [facility] Glucose Glucometer (BldC) [M ass/Vol]on 01-05-2024 Glucose [Mass/Vol] 218 mg/dL High 65-99 [facility] Glucose [Mass/Vol] 104 mg/dL High 65 - 99 mg/dL [facility] Glucose [Mass/Vol] 104 mg/dL High 65-99 [facility] Glucose [Mass/Vol] 149 mg/dL High 65 - 99 mg/dL [facility] Glucose [Mass/Vol] 149 mg/dL High 65-99 [facility] Glucose [Mass/Vol] 182 mg/dL High 65 - 99 mg/dL [facility] Glucose [Mass/Vol] 182 mg/dL High 65-99 [facility] Glucose [Mass/Vol] 222 mg/dL High 65 - 99 mg/dL [facility] Glucose [Mass/Vol] 222 mg/dL High 65-99 [facility] Interpretation and review of laboratory results Abnormal [facility] Interpretation and review of laboratory results Abnormal [facility] Interpretation and review of laboratory results Abnormal [facility] MAGNESIUMon 01-05-2024 Magnesium [Mass/Vol] 1.8 mg/dL Normal 1.8-2.6 [facility] Comment on above: Performed By: #### 8 2477-1, 05726-6, 1987- #### [facility] ([id number]) [address] [facility], [address] [place] [address] Magnesiumon 01-05-2024 Magnesium [Mass/Vol] 1.8 mg/dL 1.8 - 2 .6 mg/dL [facility] No Panel Informationon 01-05 Interpretation and review of laboratory results Abnormal [facility] Interpretation and review of laboratory results Abnormal [facility] PROTIME AND INRon 01-05-2024 INR Coag (PPP) [Relative time] 2.1 {INR} High 0.8-1.1 [facility] Comment on above: Performed By: #### C BCA, CMP, 99792-1, PINR #### [facility] ([id number]) [address], [address] [place] [address] PT Coag (PPP) [Time] 24.1 s High 9.8-13.2 [facility] Comment on above: Performed By: #### C MATHEW, CMP, , PINR #### [facility] ([id number]) [address], [address] [place] [address] Protime & INRon 01-05-2024 INR Coag (PPP) [Relative time] 2.1 {INR} High [facility] PT Coag (PPP) [Time] 24.1 s High [facility] CBC AND AUTO DIFFon 01-04-20 24 ABSOLUTE BASOPHIL 0.0 X10E9/L Normal 0.0-0.2 [facility] Comment on above: Performed By: #### 8 2477-1, 18890-5, 1988-03 #### [facility] ([id number]) [address], [address] [place] [address] ABSOLUTE NEUTROPHIL 6.5 X10E9/L Normal 1.5-6.6 [facility] Comment on above: Performed By: #### 8 2477-1, 56485-6, 1988-03 #### [facility] ([id number]) [address], [address] [place] [address] Basophils/100 WBC (Bld) 0.4 % Normal [facility] Comment on above: Performed By: #### 8 2477-1, 09468-9, 1988-03 #### [facility] ([id number]) [address], [address] [place] [address] Eosinophils (Bld) [#/Vol] 0.4 10*3/uL Normal 0.0-0.4 [facility] Comment on above: Performed By: #### 8 2477-1, 22505-5, 1988-03 #### [facility] ([id number]) [address], [address] [place] [address] Eosinophils/100 WBC (Bld) 4.9 % Normal [facility] Comment on above: Performed By: #### 8 2477-1, 82765-8, 1988-03 #### [facility] ([id number]) [address], [address] [place] [address] Erythrocyte distribution width (RBC) [Ratio] 16.0 % High 11.5-15.0 [facility] Comment on above: Performed By: #### 8 2477-, , 1988-03 #### [facility] ([id number]) [address], [address] [place] [address] Hematocrit (Bld) [Volume fraction] 33.9 % Low 39-49 [facility] Comment on above: Performed By: #### 8 2477-, , 1988-03 #### [facility] ([id number]) [address], [address] [place] [address] Hemoglobin (Bld) [Mass/Vol] 11.4 g/dL Low 13.0-17.0 [facility] Comment on above: Performed By: #### 8 2477-, , 1988-03 #### [facility] ([id number]) [address], [address] [place] [address] Lymphocytes (Bld) [#/Vol] 0.7 10*3/uL Low 1.0-3.5 [facility] Comment on above: Performed By: #### 8 2477-, , 1988-03 #### [facility] ([id number]) [address], [address] [place] [address] Lymphocytes/100 WBC (Bld) 8.4 % Normal [facility] Comment on above: Performed By: #### 8 2477-, , 1988-03 #### [facility] ([id number]) [address], [address] [place] [address] MCH (RBC) [Entitic mass] 31.2 pg Normal 27-34 [facility] Comment on above: Performed By: #### 8 2477-1, , 1988-03 #### [facility] ([id number]) [address], [address] [place] [address] MCHC (RBC) [Mass/Vol] 33.6 g/dL Normal 32-36 [facility] Comment on above: Performed By: #### 8 2477-, , 1988-03 #### [facility] ([id number]) [address], [address] [place] [address] MCV (RBC) [Entitic vol] 93 fL Normal 80-100 [facility] Comment on above: Performed By: #### 8 2477-, , 1988-03 #### [facility] ([id number]) [address], [address] [place] [address] Monocytes (Bld) [#/Vol] 1.0 10*3/uL High 0-0.9 [facility] Comment on above: Performed By: #### 8 2477-, , 1988-03 #### [facility] ([id number]) [address], [address] [place] [address] Monocytes/100 WBC (Bld) 11.1 % Normal [facility] Comment on above: Performed By: #### 8 2477-, , 1988-03 #### [facility] ([id number]) [address], [address] [place] [address] Neutrophils/100 WBC (Bld) 75.2 % Normal [facility] Comment on above: Performed By: #### 8 2477-, , 1988-03 #### [facility] ([id number]) [address], [address] [place] [address] Platelet mean volume (Bld) [Entitic vol] 8.5 fL Normal 7-12 [facility] Comment on above: Performed By: #### 8 2477-1, 81800-4, 1988-03 #### [facility] ([id number]) [address], [address] [place] [address] Platelets (Bld) [#/Vol] 236 10*3/uL Normal 150-450 [facility] Comment on above: Performed By: #### 8 2477-1, 82725-6, 1988-03 #### [facility] ([id number]) [address], [address] [place] [address] RBC COUNT 3.66 X10E12/L Low 4.10-5.[address] [facility] Comment on above: Performed By: #### 8 2477-1, 09294-3, 1988-03 #### [facility] ([id number]) [address], [address] [place] [address] WBC (Bld) [#/Vol] 8.6 10*3/uL Normal 4.0-11.0 [facility] Comment on above: Performed By: #### 8 2477-1, 62396-4, 1988-03 #### [facility] ([id number]) [address], [address] [place] [address] CBC auto differentialon 12-26 Basophils (Bld) [#/Vol] 0.0 10*3/uL [facility] Neutrophils (Bld) [#/Vol] 6.5 10*3/uL [facility] RBC (Bld) [#/Vol] 3.66 10*6/uL Low [facility] WBC corrected for nucl RBC Auto (Bld) [#/Vol] 8.6 [facility] COMPREHENSIVE METABOLIC PANE Roberto 01-04-2024 Albumin [Mass/Vol] 2.2 g/dL Low 3.2-5.3 [facility] Comment on above: Performed By: #### 8 2477-1, 54136-1, 1988-03 #### [facility] ([id number]) [address], [address] [place] [address] ALP [Catalytic activity/Vol] 306 U/L High 39-130 [facility] Comment on above: Performed By: #### 8 2477-1, 12295-4, 1988-03 #### [facility] ([id number]) [address], [address] [place] [address] ALT [Catalytic activity/Vol] 77 U/L High 0-40 [facility] Comment on above: Performed By: #### 8 2477-1, 68521-5, 1988-03 #### [facility] ([id number]) [address], [address] [place] [address] Anion gap [Moles/Vol] 4 mmol/L Low 5-15 [facility] Comment on above: Performed By: #### 8 2477-1, 22821-4, 1988-03 #### [facility] ([id number]) [address], [address] [place] [address] AST [Catalytic activity/Vol] 56 U/L High 0-41 [facility] Comment on above: Performed By: #### 8 2477-1, 76437-5, 1988-03 #### [facility] ([id number]) [address], [address] [place] [address] Bilirubin [Mass/Vol] 0.9 mg/dL Normal 0.3-1.2 [facility] Comment on above: Performed By: #### 8 2477-1, 10289-2, 1988-03 #### [facility] ([id number]) [address], [address] [place] [address] Calcium [Mass/Vol] 7.8 mg/dL Low 8.5-10.5 [facility] Comment on above: Performed By: #### 8 2477-1, 62378-1, 1988-03 #### [facility] ([id number]) [address], [address] [place] [address] Chloride [Moles/Vol] 101 mmol/L Normal 98-109 [facility] Comment on above: Performed By: #### 8 2477-1, 81697-1, 1988-03 #### [facility] ([id number]) [address], [address] [place] [address] CO2 [Moles/Vol] 35 mmol/L High 22-32 [facility] Comment on above: Performed By: #### 8 2477-1, 46501-5, 1988-03 #### [facility] ([id number]) [address], [address] [place] [address] Creatinine [Mass/Vol] 0.76 mg/dL Normal 0.60-1.30 [facility] Comment on above: Result Comment: METH OD TRACEABLE TO IDMS STANDARD Performed By: #### 8 2477-1, , 1988-03 #### [facility] ([id number]) [address], [address] [place] [address] eGFR (CKD-EPI) NON-RACE DEPENDENT >90 Normal >59 [facility] Comment on above: Result Comment: Reported eGFR is based on the CKD-EPI 2020 equation that does not use a race coefficient. Performed By: #### 8 2477-1, 27869-8, 1988-03 #### [facility] ([id number]) [address], [address] [place] [address] Glucose [Mass/Vol] 124 mg/dL High 65-99 [facility] Comment on above: Performed By: #### 8 2477-1, 80534-7, 1988-03 #### [facility] ([id number]) [address], [address] [place] [address] Potassium [Moles/Vol] 4.1 mmol/L Normal 3.5-5.0 [facility] Comment on above: Performed By: #### 8 2477-1, 00164-9, 1988-03 #### [facility] ([id number]) [address], [address] [place] [address] Protein [Mass/Vol] 5.1 g/dL Low 6.0-8.0 [facility] Comment on above: Performed By: #### 8 2477-1, 38666-9, 1988-03 #### [facility] ([id number]) [address], [address] [place] [address] Sodium [Moles/Vol] 140 mmol/L Normal 134-146 [facility] Comment on above: Performed By: #### 8 2477-1, 26129-6, 1988-03 #### [facility] ([id number]) [address], [address] [place] [address] Urea nitrogen [Mass/Vol] 25 mg/dL High 5-23 [facility] Comment on above: Performed By: #### 8 2477-1, 47310-1, 1988-03 #### [facility] ([id number]) [address], [address] [place] [address] Comprehensive metabolic pane roberto 01-04-2024 ALT No additional P-5'-P [Catalytic activity/Vol] 77 U/L High 0 - 40 U/L [facility] eGFR (CKD-EPI)non-race dependent - PINF [facility] Glucose Glucometer (BldC) [M ass/Vol]on 01-04-2024 Glucose [Mass/Vol] 135 mg/dL High 65 - 99 mg/dL [facility] Glucose [Mass/Vol] 135 mg/dL High 65-99 [facility] Glucose [Mass/Vol] 201 mg/dL High 65 - 99 mg/dL [facility] Glucose [Mass/Vol] 201 mg/dL High 65-99 [facility] Glucose [Mass/Vol] 162 mg/dL High 65 - 99 mg/dL [facility] Glucose [Mass/Vol] 162 mg/dL High 65-99 [facility] Glucose [Mass/Vol] 218 mg/dL High 65 - 99 mg/dL [facility] Interpretation and review of laboratory results Abnormal [facility] Interpretation and review of laboratory results Abnormal [facility] Interpretation and review of laboratory results Abnormal [facility] Laboratory - Chemistry and C hemistry - challengeon 01-04-2024 Magnesium [Mass/Vol] 2.0 mg/dL Normal 1.8-2.6 [facility] Comment on above: Performed By: #### 8 2477-1, 94119-6, 1988-03 #### [facility] ([id number]) [address] [place] [address], [address] [place] [address] Natriuretic peptide B [Mass/ Vol]on 01-04-2024 Interpretation and review of laboratory results Abnormal [facility] Natriuretic peptide B (Bld) [Mass/Vol] 644 pg/mL High <100.0 [facility] Comment on above: Performed By: #### 8 2477-1, 50483-9, 1988-03 #### [facility] ([id number]) [address] [place] [address], [address] [place] [address] Natriuretic peptide B (Bld) [Mass/Vol] 644 pg/mL High NINF - 100.0 pg/mL [facility] No Panel Informationon 01-04 Interpretation and review of laboratory results Abnormal [facility] Interpretation and review of laboratory results Abnormal [facility] PROTIME AND INRon 01-04-2024 INR Coag (PPP) [Relative time] 2.4 {INR} High 0.8-1.1 [facility] Comment on above: Performed By: #### 8 2477-1, 00919-0, 1988-03 #### [facility] ([id number]) [address] [facility], [address] [place] [address] PT Coag (PPP) [Time] 27.4 s High 9.8-13.2 [facility] Comment on above: Performed By: #### 8 2477-1, 92903-2, 1987- #### [facility] ([id number]) [address], [address] [place] [address] XR CHEST 1 VWon 01-04-2024 XR CHEST 1 VW XR CHEST 1 VW History: SOB Exam/Technique: Single AP view of the chest was obtained Comparison: Chest x-ray 12/23/2023 Findings: Cardiac size stable. There is no focal areas of airspace disease, pleural effusion or pneumothorax. IMPRESSION: Unremarkable chest x-ray Finalized by Silvia Michel MD on 01/04/2024 1:09 PM Normal [facility] XR Chest Single viewon 01-04 Radiology Study observation (narrative) [facility] [employer] [facility] XR Chest Single viewOrdered By: Silvia Michel on 01-04-2024 [facility] Work Phone: CBC AND AUTO DIFFon 01-03-20 24 ABSOLUTE BASOPHIL 0.0 X10E9/L Normal 0.0-0.2 [facility] Comment on above: Performed By: #### C BCA, CMP, , PINR, 64017-1 ####[facility] ([id number])[address], [address] [place] [address] ABSOLUTE NEUTROPHIL 5.9 X10E9/L Normal 1.5-6.6 [facility] Comment on above: Performed By: #### C BCA, CMP, , PINR, 75508-4 ####[facility] ([id number])[address], [address] [place] [address] Basophils/100 WBC (Bld) 0.4 % Normal [facility] Comment on above: Performed By: #### C BCA, CMP, , PINR, 07033-9 ####[facility] ([id number])[address] [address] [address] Eosinophils (Bld) [#/Vol] 0.4 10*3/uL Normal 0.0-0.4 [facility] Comment on above: Performed By: #### C BCA, CMP, 85940-4, PINR, 29306-5 ####[facility] ([id number])[address] [address] [address] Eosinophils/100 WBC (Bld) 5.5 % Normal [facility] Comment on above: Performed By: #### C BCA, CMP, 55923-3, PINR, 41371-1 ####[facility] ([id number])[address] [address], [place] [address] Erythrocyte distribution width (RBC) [Ratio] 15.6 % High 11.5-15.0 [facility] Comment on above: Performed By: #### C BCA, CMP, , PINR, 45619-9 ####[facility] ([id number])[address] [address] [address] Hematocrit (Bld) [Volume fraction] 31.8 % Low 39-49 [facility] Comment on above: Performed By: #### C BCA, CMP, 65753-7, PINR, 92786-4 ####[facility] ([id number])[address] [address], [place] [address] Hemoglobin (Bld) [Mass/Vol] 10.7 g/dL Low 13.0-17.0 [facility] Comment on above: Performed By: #### C BCA, CMP, 53493-4, PINR, 24942-7 ####[facility] ([id number])[address] [address], [place] [address] Lymphocytes (Bld) [#/Vol] 0.7 10*3/uL Low 1.0-3.5 [facility] Comment on above: Performed By: #### C BCA, CMP, , PINR, 38791-5 ####[facility] ([id number])[address], [address] [address] Lymphocytes/100 WBC (Bld) 9.3 % Normal [facility] Comment on above: Performed By: #### C BCA, CMP, 24726-2, PINR, 28478-0 ####[facility] ([id number])[address], [address], [place] [address] MCH (RBC) [Entitic mass] 31.6 pg Normal 27-34 [facility] Comment on above: Performed By: #### C BCA, CMP, , PINR, 71987-5 ####[facility] ([id number])[address], [address] [address] MCHC (RBC) [Mass/Vol] 33.7 g/dL Normal 32-36 [facility] Comment on above: Performed By: #### C BCA, CMP, , PINR, 29343-9 ####[facility] ([id number])[address], [address] [address] MCV (RBC) [Entitic vol] 94 fL Normal 80-100 [facility] Comment on above: Performed By: #### C BCA, CMP, , PINR, 80301-4 ####[facility] ([id number])[address], [address] [address] Monocytes (Bld) [#/Vol] 0.7 10*3/uL Normal 0-0.9 [facility] Comment on above: Performed By: #### C BCA, CMP, , PINR, 01880-2 ####[facility] ([id number])[address], [place] [address] Monocytes/100 WBC (Bld) 9.5 % Normal [facility] Comment on above: Performed By: #### C BCA, CMP, 28937-4, PINR, 31133-5 ####[facility] ([id number])[address], [address], [place] [address] Neutrophils/100 WBC (Bld) 75.3 % Normal [facility] Comment on above: Performed By: #### C BCA, CMP, 06094-1, PINR, 09271-6 ####[facility] ([id number])[address], [address] [address] Platelet mean volume (Bld) [Entitic vol] 8.2 fL Normal 7-12 [facility] Comment on above: Performed By: #### C BCA, CMP, 75192-4, PINR, 47619-9 ####[facility] ([id number])[address] [address] [address] Platelets (Bld) [#/Vol] 198 10*3/uL Normal 150-450 [facility] Comment on above: Performed By: #### C BCA, CMP, 06003-0, PINR, 46937-5 ####[facility] ([id number])[address] [address] [address] RBC COUNT 3.40 X10E12/L Low 4.10-5.[address] [facility] Comment on above: Performed By: #### C BCA, CMP, 94200-2, PINR, 55868-5 ####[facility] [facility] ([id number])[address] [address] [address] WBC (Bld) [#/Vol] 7.8 10*3/uL Normal 4.0-11.0 [facility] Comment on above: Performed By: #### C BCA, CMP, 79103-8, PINR, 25680-8 ####[facility] ([id number])[address] [facility], [address] [place] [address] CBC auto differentialon Basophils (Bld) [#/Vol] 0.0 10*3/uL [facility] Basophils/100 WBC (Bld) 0.4 % [facility] Eosinophils (Bld) [#/Vol] 0.4 10*3/uL [facility] Eosinophils/100 WBC (Bld) 5.5 % [facility] Erythrocyte distribution width (RBC) [Ratio] 15.6 % High 11.5 - 15.0 % [facility] Hematocrit (Bld) [Volume fraction] 31.8 % Low 39 - 49 % [facility] Hemoglobin (Bld) [Mass/Vol] 10.7 g/dL Low 13.0 - 17.0 g/dL [facility] Lymphocytes (Bld) [#/Vol] 0.7 10*3/uL Low [facility] Lymphocytes/100 WBC (Bld) 9.3 % [facility] MCH (RBC) [Entitic mass] 31.6 pg 27 - 34 pg [facility] MCHC (RBC) [Mass/Vol] 33.7 g/dL 32 - 36 g/dL [facility] MCV (RBC) [Entitic vol] 94 fL 80 - 100 fL [facility] Monocytes (Bld) [#/Vol] 0.7 10*3/uL [facility] Monocytes/100 WBC (Bld) 9.5 % [facility] Neutrophils (Bld) [#/Vol] 5.9 10*3/uL [facility] Neutrophils/100 WBC (Bld) 75.3 % [facility] Platelet mean volume (Bld) [Entitic vol] 8.2 fL 7 - 12 fL [facility] Platelets (Bld) [#/Vol] 198 10*3/uL [facility] RBC (Bld) [#/Vol] 3.40 10*6/uL [facility] WBC corrected for nucl RBC Auto (Bld) [#/Vol] 7.8 [facility] COMPREHENSIVE METABOLIC PANE Roberto 01-03-2024 Albumin [Mass/Vol] 2.2 g/dL Low 3.2-5.3 [facility] Comment on above: Performed By: #### 8 2477-1, 07435-7, 1988-03 #### [facility] ([id number]) [address], [address] [place] [address] ALP [Catalytic activity/Vol] 262 U/L High 39-130 [facility] Comment on above: Performed By: #### 8 2477-1, , 1988-03 #### [facility] ([id number]) [address], [address] [place] [address] ALT [Catalytic activity/Vol] 76 U/L High 0-40 [facility] Comment on above: Performed By: #### 8 2477-1, 38421-6, 1988-03 #### [facility] ([id number]) [address], [address] [place] [address] Anion gap [Moles/Vol] 4 mmol/L Low 5-15 [facility] Comment on above: Performed By: #### 8 2477-1, , 1988-03 #### [facility] ([id number]) [address], [address] [place] [address] AST [Catalytic activity/Vol] 53 U/L High 0-41 [facility] Comment on above: Performed By: #### 8 2477-1, 56995-3, 1988-03 #### [facility] ([id number]) [address], [address] [place] [address] Bilirubin [Mass/Vol] 0.7 mg/dL Normal 0.3-1.2 [facility] Comment on above: Performed By: #### 8 2477-1, 19760-7, 1988-03 #### [facility] ([id number]) [address], [address] [place] [address] Calcium [Mass/Vol] 7.8 mg/dL Low 8.5-10.5 [facility] Comment on above: Performed By: #### 8 2477-1, 75805-0, 1988-03 #### [facility] ([id number]) [address], [address] [place] [address] Chloride [Moles/Vol] 102 mmol/L Normal 98-109 [facility] Comment on above: Performed By: #### 8 2477-1, , 1988-03 #### [facility] ([id number]) [address], [address] [place] [address] CO2 [Moles/Vol] 36 mmol/L High 22-32 [facility] Comment on above: Performed By: #### 8 2477-1, , 1988-03 #### [facility] ([id number]) [address], [address] [place] [address] Creatinine [Mass/Vol] 0.90 mg/dL Normal 0.60-1.30 [facility] Comment on above: Result Comment: METH OD TRACEABLE TO IDMS STANDARD Performed By: #### 8 2477-1, , 1988-03 #### [facility] ([id number]) [address], [address] [place] [address] eGFR (CKD-EPI) NON-RACE DEPENDENT >90 Normal >59 [facility] Comment on above: Result Comment: Reported eGFR is based on the CKD-EPI 2021 equation that does not use a race coefficient. Performed By: #### 8 2477-1, 33630-9, 1988-03 #### [facility] ([id number]) [address], [address] [place] [address] Glucose [Mass/Vol] 107 mg/dL High 65-99 [facility] Comment on above: Performed By: #### 8 2477-1, 36692-1, 1988-03 #### [facility] ([id number]) [address], [address] [place] [address] Potassium [Moles/Vol] 4.2 mmol/L Normal 3.5-5.0 [facility] Comment on above: Performed By: #### 8 2477-1, 40663-0, 1988-03 #### [facility] ([id number]) [address], [address] [place] [address] Protein [Mass/Vol] 4.7 g/dL Low 6.0-8.0 [facility] Comment on above: Performed By: #### 8 2477-1, 64108-3, 1988-03 #### [facility] ([id number]) [address], [address] [place] [address] Sodium [Moles/Vol] 142 mmol/L Normal 134-146 [facility] Comment on above: Performed By: #### 8 2477-1, 93974-9, 1988-03 #### [facility] ([id number]) [address], [address] [place] [address] Urea nitrogen [Mass/Vol] 30 mg/dL High 5-23 [facility] Comment on above: Performed By: #### 8 2477-1, 42466-9, 1988-03 #### [facility] ([id number]) [address], [address] [place] [address] Comprehensive metabolic pane roberto 01-03-2024 Albumin [Mass/Vol] 2.2 g/dL Low 3.2 - 5.3 g/dL [facility] ALP [Catalytic activity/Vol] 262 U/L High 39 - 130 U/L [facility] ALT No additional P-5'-P [Catalytic activity/Vol] 76 U/L High 0 - 40 U/L [facility] Anion gap [Moles/Vol] 4 mmol/L Low 5 - 15 mmol/L [facility] AST [Catalytic activity/Vol] 53 U/L High 0 - 41 U/L [facility] Bilirubin [Mass/Vol] 0.7 mg/dL 0.3 - 1 .2 mg/dL [facility] Calcium [Mass/Vol] 7.8 mg/dL Low 8.5 - 10. 5 mg/dL [facility] Chloride [Moles/Vol] 102 mmol/L 98 - 10 9 mmol/L [facility] CO2 [Moles/Vol] 36 mmol/L High 22 - 32 mmol/L [facility] Creatinine [Mass/Vol] 0.90 mg/dL 0.60 - 1.30 mg/dL [facility] eGFR (CKD-EPI)non-race dependent - PINF [facility] Glucose [Mass/Vol] 107 mg/dL High 65 - 99 mg/dL [facility] Potassium [Moles/Vol] 4.2 mmol/L 3.5 - 5.0 mmol/L [facility] Protein [Mass/Vol] 4.7 g/dL Low 6.0 - 8.0 g/dL [facility] Sodium [Moles/Vol] 142 mmol/L 134 - 146 mmol/L [facility] Urea nitrogen [Mass/Vol] 30 mg/dL High 5 - 23 mg/dL [facility] Glucose Glucometer (BldC) [M ass/Vol]on 01-03-2024 Glucose [Mass/Vol] 99 mg/dL 65 - 99 mg/dL [facility] Glucose [Mass/Vol] 99 mg/dL Normal 65-99 [facility] Glucose [Mass/Vol] 125 mg/dL High 65 - 99 mg/dL [facility] Glucose [Mass/Vol] 125 mg/dL High 65-99 [facility] Glucose [Mass/Vol] 267 mg/dL High 65 - 99 mg/dL [facility] Glucose [Mass/Vol] 267 mg/dL High 65-99 [facility] Glucose [Mass/Vol] 119 mg/dL High 65 - 99 mg/dL [facility] Glucose [Mass/Vol] 119 mg/dL High 65-99 [facility] Interpretation and review of laboratory results Abnormal [facility] Interpretation and review of laboratory results Abnormal [facility] Interpretation and review of laboratory results Abnormal [facility] MAGNESIUMon 01-03-2024 Magnesium [Mass/Vol] 2.0 mg/dL Normal 1.8-2.6 [facility] Comment on above: Performed By: #### 8 2477-1, 10160-2, 1988-03 #### [facility] ([id number]) [address], [address] [place] [address] Magnesiumon 01-03-2024 Magnesium [Mass/Vol] 2.0 mg/dL 1.8 - 2 .6 mg/dL [facility] Natriuretic peptide B [Mass/ Vol]on 01-03-2024 Interpretation and review of laboratory results Abnormal [facility] Natriuretic peptide B (Bld) [Mass/Vol] 623 pg/mL High <100.0 [facility] Comment on above: Performed By: #### 8 2477-1, 70557-1, 1988-03 #### [facility] ([id number]) [address], [address] [place] [address] Natriuretic peptide B (Bld) [Mass/Vol] 623 pg/mL High NINF - 100.0 pg/mL [facility] No Panel Informationon 01-03 Interpretation and review of laboratory results Abnormal [facility] PROTIME AND INRon 01-03-2024 INR Coag (PPP) [Relative time] 2.7 {INR} High 0.8-1.1 [facility] Comment on above: Performed By: #### 8 2477-1, 38043-8, 1988-03 #### [facility] ([id number]) [address], [address] [place] [address] PT Coag (PPP) [Time] 29.9 s High 9.8-13.2 [facility] Comment on above: Performed By: #### 8 2477-1, 20898-4, 1988-03 #### [facility] ([id number]) [address], [address] [place] [address] CBC AND AUTO DIFFon 01-02-20 ABSOLUTE BASOPHIL 0.0 X10E9/L Normal 0.0-0.2 [facility] Comment on above: Performed By: #### C BCA, CMP, , PINR ####[facility] ([id number])[address], [address], [place] [address] ABSOLUTE NEUTROPHIL 5.7 X10E9/L Normal 1.5-6.6 [facility] Comment on above: Performed By: #### Aquiles CARMONA, CMP, , PINR ####[facility] ([id number])[address], [address], [place] [address] Basophils/100 WBC (Bld) 0.2 % Normal [facility] Comment on above: Performed By: #### Aquiles BCA, CMP, , PINR ####[facility] ([id number])[address], [address] [place] [address] Eosinophils (Bld) [#/Vol] 0.5 10*3/uL High 0.0-0.4 [facility] Comment on above: Performed By: #### Aquiles BCA, CMP, , PINR ####[facility] ([id number])[address], [address] [place] [address] Eosinophils/100 WBC (Bld) 6.4 % Normal [facility] Comment on above: Performed By: #### C BCA, CMP, , PINR ####[facility] ([id number])[address] [address] [place] [address], [place] [address] Erythrocyte distribution width (RBC) [Ratio] 15.3 % High 11.5-15.0 [facility] Comment on above: Performed By: #### Aquiles BCA, CMP, , PINR ####[facility] ([id number])[address], [address], [place] [address] Hematocrit (Bld) [Volume fraction] 31.7 % Low 39-49 [facility] Comment on above: Performed By: #### C BCA, CMP, , PINR ####[facility] ([id number])[address], [address], [place] [address] Hemoglobin (Bld) [Mass/Vol] 10.6 g/dL Low 13.0-17.0 [facility] Comment on above: Performed By: #### C BCA, CMP, , PINR ####[facility] ([id number])[address], [address] [place] [address] Lymphocytes (Bld) [#/Vol] 0.7 10*3/uL Low 1.0-3.5 [facility] Comment on above: Performed By: #### C BCA, CMP, , PINR ####[facility] ([id number])[address] [address] [place] [address] Lymphocytes/100 WBC (Bld) 9.3 % Normal [facility] Comment on above: Performed By: #### C BCA, CMP, , PINR ####[facility] ([id number])[address], [address] [place] [address] MCH (RBC) [Entitic mass] 31.4 pg Normal 27-34 [facility] Comment on above: Performed By: #### C BCA, CMP, , PINR ####[facility] ([id number])[address] [address] [place] [address] MCHC (RBC) [Mass/Vol] 33.5 g/dL Normal 32-36 [facility] Comment on above: Performed By: #### C BCA, CMP, , PINR ####[facility] ([id number])[address], [address], [place] [address] MCV (RBC) [Entitic vol] 94 fL Normal 80-100 [facility] Comment on above: Performed By: #### C BCA, CMP, , PINR ####[facility] ([id number])[address], [address] [place] [address] Monocytes (Bld) [#/Vol] 0.9 10*3/uL Normal 0-0.9 [facility] Comment on above: Performed By: #### C BCA, CMP, , PINR ####[facility] ([id number])[address] [address] Monocytes/100 WBC (Bld) 10.9 % Normal [facility] Comment on above: Performed By: #### Aquiles BCA, CMP, , PINR ####[facility] ([id number])[address] [address] Neutrophils/100 WBC (Bld) 73.2 % Normal [facility] Comment on above: Performed By: #### Aquiles BCA, CMP, , PINR ####[facility] ([id number])[address], [address], [place] [address] Platelet mean volume (Bld) [Entitic vol] 8.5 fL Normal 7-12 [facility] Comment on above: Performed By: #### C BCA, CMP, , PINR ####[facility] ([id number])[address], [address], [place] [address] Platelets (Bld) [#/Vol] 167 10*3/uL Normal 150-450 [facility] Comment on above: Performed By: #### C BCA, CMP, , PINR ####[facility] ([id number])[address], [address], [place] [address] RBC COUNT 3.38 X10E12/L Low 4.10-5.[address] [facility] Comment on above: Performed By: #### C MATHEW, [facility], 57476-3, PINR ####[facility] ([id number])[address], [address], [place] [address] WBC (Bld) [#/Vol] 7.8 10*3/uL Normal 4.0-11.0 [facility] Comment on above: Performed By: #### C MATHEW, [facility], 56149-4, PINR ####[facility] ([id number])[address], [address] [place] [address] CBC auto differentialon Basophils (Bld) [#/Vol] 0.0 10*3/uL [facility] Basophils/100 WBC (Bld) 0.2 % [facility] Eosinophils (Bld) [#/Vol] 0.5 10*3/uL High [facility] Eosinophils/100 WBC (Bld) 6.4 % [facility] Erythrocyte distribution width (RBC) [Ratio] 15.3 % High 11.5 - 15.0 % [facility] Hematocrit (Bld) [Volume fraction] 31.7 % Low 39 - 49 % [facility] Hemoglobin (Bld) [Mass/Vol] 10.6 g/dL Low 13.0 - 17.0 g/dL [facility] Lymphocytes (Bld) [#/Vol] 0.7 10*3/uL Low [facility] Lymphocytes/100 WBC (Bld) 9.3 % [facility] MCH (RBC) [Entitic mass] 31.4 pg 27 - 34 pg [facility] MCHC (RBC) [Mass/Vol] 33.5 g/dL 32 - 36 g/dL [facility] MCV (RBC) [Entitic vol] 94 fL 80 - 100 fL [facility] Monocytes (Bld) [#/Vol] 0.9 10*3/uL [facility] Monocytes/100 WBC (Bld) 10.9 % [facility] Neutrophils (Bld) [#/Vol] 5.7 10*3/uL [facility] Neutrophils/100 WBC (Bld) 73.2 % [facility] Platelet mean volume (Bld) [Entitic vol] 8.5 fL 7 - 12 fL [facility] Platelets (Bld) [#/Vol] 167 10*3/uL [facility] RBC (Bld) [#/Vol] 3.38 10*6/uL Low [facility] WBC corrected for nucl RBC Auto (Bld) [#/Vol] 7.8 [facility] COMPREHENSIVE METABOLIC PANE Roberto 01-02-2024 Albumin [Mass/Vol] 2.2 g/dL Low 3.2-5.3 [facility] Comment on above: Performed By: #### C MATHEW CMP, , PINR ####[facility] ([id number])[address], [address] [address] ALP [Catalytic activity/Vol] 260 U/L High 39-130 [facility] Comment on above: Performed By: #### C MATHEW CMP, , PINR ####[facility] ([id number])[address], [address], [place] [address] ALT [Catalytic activity/Vol] 81 U/L High 0-40 [facility] Comment on above: Performed By: #### C MATHEW CMP, , PINR ####[facility] ([id number])[address] [place] [address] Anion gap [Moles/Vol] 3 mmol/L Low 5-15 [facility] Comment on above: Performed By: #### C BCA, CMP, , PINR ####[facility] ([id number])[address], [address] [address] AST [Catalytic activity/Vol] 58 U/L High 0-41 [facility] Comment on above: Performed By: #### C BCA, CMP, , PINR ####[facility] ([id number])[address], [address], [place] [address] Bilirubin [Mass/Vol] 0.7 mg/dL Normal 0.3-1.2 [facility] Comment on above: Performed By: #### C BCA, CMP, , PINR ####[facility] ([id number])[address], [address], [place] [address] Calcium [Mass/Vol] 7.8 mg/dL Low 8.5-10.5 [facility] Comment on above: Performed By: #### C BCA, CMP, , PINR ####[facility] ([id number])[address], [place] [address] Chloride [Moles/Vol] 101 mmol/L Normal 98-109 [facility] Comment on above: Performed By: #### C BCA, CMP, , PINR ####[facility] ([id number])[address], [address], [place] [address] CO2 [Moles/Vol] 38 mmol/L High 22-32 [facility] Comment on above: Performed By: #### C BCA, CMP, , PINR ####[facility] ([id number])[address], [place] [address] Creatinine [Mass/Vol] 0.89 mg/dL Normal 0.60-1.30 [facility] Comment on above: Result Comment: METH OD TRACEABLE TO IDMS STANDARD Performed By: #### C BCA, CMP, , PINR ####[facility] ([id number])[address], [place] [address] eGFR (CKD-EPI) NON-RACE DEPENDENT >90 Normal >59 [facility] Comment on above: Result Comment: Reported eGFR is based on the CKD-EPI 2020 equation that does not use a race coefficient. Performed By: #### C CARMEN CARMONA, , PINR ####[facility] ([id number])[address], [place] [address] Glucose [Mass/Vol] 107 mg/dL High 65-99 [facility] Comment on above: Performed By: #### C CARMEN CARMONA, , PINR ####[facility] ([id number])[address], [place] [address] Potassium [Moles/Vol] 4.1 mmol/L Normal 3.5-5.0 [facility] Comment on above: Performed By: #### C CARMEN CARMONA, , PINR ####[facility] ([id number])[address], [place] [address] Protein [Mass/Vol] 4.6 g/dL Low 6.0-8.0 [facility] Comment on above: Performed By: #### C CARMEN CARMONA, , PINR ####[facility] ([id number])[address], [place] [address] Sodium [Moles/Vol] 142 mmol/L Normal 134-146 [facility] Comment on above: Performed By: #### C CARMEN CARMONA, , PINR ####[facility] ([id number])[address], [place] [address] Urea nitrogen [Mass/Vol] 33 mg/dL High 5-23 [facility] Comment on above: Performed By: #### C MATHEW CMP, , PINR ####[facility] ([id number])[address], [place] [address] Comprehensive metabolic pane roberto 01-02-2024 Albumin [Mass/Vol] 2.2 g/dL Low 3.2 - 5.3 g/dL [facility] ALP [Catalytic activity/Vol] 260 U/L High 39 - 130 U/L [facility] ALT No additional P-5'-P [Catalytic activity/Vol] 81 U/L High 0 - 40 U/L [facility] Anion gap [Moles/Vol] 3 mmol/L Low 5 - 15 mmol/L [facility] AST [Catalytic activity/Vol] 58 U/L High 0 - 41 U/L [facility] Bilirubin [Mass/Vol] 0.7 mg/dL 0.3 - 1 .2 mg/dL [facility] Calcium [Mass/Vol] 7.8 mg/dL Low 8.5 - 10. 5 mg/dL [facility] Chloride [Moles/Vol] 101 mmol/L 98 - 10 9 mmol/L [facility] CO2 [Moles/Vol] 38 mmol/L High 22 - 32 mmol/L [facility] Creatinine [Mass/Vol] 0.89 mg/dL 0.60 - 1.30 mg/dL [facility] eGFR (CKD-EPI)non-race dependent - PINF [facility] Glucose [Mass/Vol] 107 mg/dL High 65 - 99 mg/dL [facility] Potassium [Moles/Vol] 4.1 mmol/L 3.5 - 5.0 mmol/L [facility] Protein [Mass/Vol] 4.6 g/dL Low 6.0 - 8.0 g/dL [facility] Sodium [Moles/Vol] 142 mmol/L 134 - 146 mmol/L [facility] Urea nitrogen [Mass/Vol] 33 mg/dL High 5 - 23 mg/dL [facility] Glucose Glucometer (BldC) [M ass/Vol]on 01-02-2024 Glucose [Mass/Vol] 109 mg/dL High 65 - 99 mg/dL [facility] Glucose [Mass/Vol] 139 mg/dL High 65 - 99 mg/dL [facility] Glucose [Mass/Vol] 109 mg/dL High 65-99 [facility] Glucose [Mass/Vol] 116 mg/dL High 65 - 99 mg/dL [facility] Glucose [Mass/Vol] 116 mg/dL High 65-99 [facility] Glucose [Mass/Vol] 131 mg/dL High 65 - 99 mg/dL [facility] Glucose [Mass/Vol] 131 mg/dL High 65-99 [facility] Glucose [Mass/Vol] 182 mg/dL High 65 - 99 mg/dL [facility] Glucose [Mass/Vol] 182 mg/dL High 65-99 [facility] Glucose [Mass/Vol] 187 mg/dL High 65 - 99 mg/dL [facility] Glucose [Mass/Vol] 187 mg/dL High 65-99 [facility] Interpretation and review of laboratory results Abnormal [facility] Interpretation and review of laboratory results Abnormal [facility] Interpretation and review of laboratory results Abnormal [facility] Interpretation and review of laboratory results Abnormal [facility] Interpretation and review of laboratory results Abnormal [facility] MAGNESIUMon 01-02-2024 Magnesium [Mass/Vol] 2.0 mg/dL Normal 1.8-2.6 [facility] Comment on above: Performed By: #### Aquiles CARMONA CMP, , PINR ####[facility] ([id number], [address] [place] [id number] Magnesiumon 01-02-2024 Magnesium [Mass/Vol] 2.0 mg/dL 1.8 - 2 .6 mg/dL [facility] No Panel Informationon 01-02 Interpretation and review of laboratory results Abnormal [facility] PROTIME AND INRon 01-02-2024 INR Coag (PPP) [Relative time] 2.8 {INR} High 0.8-1.1 [facility] Comment on above: Performed By: #### C CARMEN CARMONA, 80141-4, PINR ####[facility] ([id number])[address], [address] [place] [address] 17984 PT Coag (PPP) [Time] 31.9 s High 9.8-13.2 [facility] Comment on above: Performed By: #### C CARMEN CARMONA, , PINR ####[facility] ([id number])[address], [address] [place] [address] 18941 CBC AND AUTO DIFFon 01-01-20 ABSOLUTE BASOPHIL 0.0 X10E9/L Normal 0.0-0.2 [facility] Comment on above: Performed By: #### C MATHEW [facility], , PINR ####[facility] ([id number])[address] [address] [place] [address] ABSOLUTE NEUTROPHIL 7.4 X10E9/L High 1.5-6.6 [facility] Comment on above: Performed By: #### Aquiles CARMONA CMP, , PINR ####[facility] ([id number])[address] [address], [place] [address] Basophils/100 WBC (Bld) 0.4 % Normal [facility] Comment on above: Performed By: #### Aquiles CARMONA [facility], , PINR ####[facility] ([id number])[address] [address] [place] [address] Eosinophils (Bld) [#/Vol] 0.5 10*3/uL High 0.0-0.4 [facility] Comment on above: Performed By: #### Aquiles CARMONA CMP, , PINR ####[facility] ([id number])[address] [address] [place] [address]641 Eosinophils/100 WBC (Bld) 5.6 % Normal [facility] Comment on above: Performed By: #### Aquiles CARMONA CMP, , PINR ####[facility] ([id number])[address] [address] Erythrocyte distribution width (RBC) [Ratio] 15.4 % High 11.5-15.0 [facility] Comment on above: Performed By: #### C MATHEW [facility], , PINR ####[facility] ([id number])[address], [address], [place] [address] Hematocrit (Bld) [Volume fraction] 33.9 % Low 39-49 [facility] Comment on above: Performed By: #### C CARMEN CARMONA, , PINR ####[facility] ([id number])[address], [address], [place] [address] Hemoglobin (Bld) [Mass/Vol] 11.5 g/dL Low 13.0-17.0 [facility] Comment on above: Performed By: #### Aquiles CARMONA [facility], , PINR ####[facility] ([id number])[address], [address], [place] [address] Lymphocytes (Bld) [#/Vol] 0.7 10*3/uL Low 1.0-3.5 [facility] Comment on above: Performed By: #### Aquiles CARMONA [facility], , PINR ####[facility] ([id number])[address], [place] [address] Lymphocytes/100 WBC (Bld) 7.2 % Normal [facility] Comment on above: Performed By: #### Aquiles CARMONA CMP, , PINR ####[facility] ([id number])[address] [address], [place] [address] MCH (RBC) [Entitic mass] 31.6 pg Normal 27-34 [facility] Comment on above: Performed By: #### Aquiles CARMONA CMP, , PINR ####[facility] ([id number])[address] [address], [place] [address] MCHC (RBC) [Mass/Vol] 34.0 g/dL Normal 32-36 [facility] Comment on above: Performed By: #### Aquiles CARMONA, CMP, , PINR ####[facility] ([id number])[address], [address] [place] [address] MCV (RBC) [Entitic vol] 93 fL Normal 80-100 [facility] Comment on above: Performed By: #### Aquiles CARMONA, CMP, , PINR ####[facility] ([id number])[address], [address] [place] [address] Monocytes (Bld) [#/Vol] 1.0 10*3/uL High 0-0.9 [facility] Comment on above: Performed By: #### Aquiles CARMONA, CMP, , PINR ####[facility] ([id number])[address], [address] [place] [address]70 Monocytes/100 WBC (Bld) 10.7 % Normal [facility] Comment on above: Performed By: #### Aquiles CARMONA, CMP, , PINR ####[facility] ([id number])[address] [address] [place] [address] Neutrophils/100 WBC (Bld) 76.1 % Normal [facility] Comment on above: Performed By: #### Aquiles CARMONA CMP, , PINR ####[facility] ([id number])[address], [address] [place] [address] Platelet mean volume (Bld) [Entitic vol] 8.4 fL Normal 7-12 [facility] Comment on above: Performed By: #### Aquiles BCA, CMP, , PINR ####[facility] ([id number])[address], [address] [place] [address]478 Platelets (Bld) [#/Vol] 181 10*3/uL Normal 150-450 [facility] Comment on above: Performed By: #### Aquiles BCA, CMP, , PINR ####[facility] ([id number])[address], [address], [place] [address] RBC COUNT 3.65 X10E12/L Low 4.10-5.[address] [facility] Comment on above: Performed By: #### C BCA, CMP, , PINR ####[facility] ([id number])[address], [address] [place] [address]174 WBC (Bld) [#/Vol] 9.8 10*3/uL Normal 4.0-11.0 [facility] Comment on above: Performed By: #### C MATHEW, CMP, , PINR ####[facility] ([id number])[address], [address] [place] [address] CBC auto differentialon Basophils (Bld) [#/Vol] 0.0 10*3/uL [facility] Neutrophils (Bld) [#/Vol] 7.4 10*3/uL High [facility] RBC (Bld) [#/Vol] 3.65 10*6/uL Low [facility] WBC corrected for nucl RBC Auto (Bld) [#/Vol] 9.8 [facility] COMPREHENSIVE METABOLIC PANE Roberto 01-01-2024 Albumin [Mass/Vol] 2.1 g/dL Low 3.2-5.3 [facility] Comment on above: Performed By: #### C BCA, CMP, , PINR ####[facility] ([id number])[address] [address] [place] [address] ALP [Catalytic activity/Vol] 306 U/L High 39-130 [facility] Comment on above: Performed By: #### C BCA, CMP, , PINR ####[facility] ([id number])[address], [place] [address] ALT [Catalytic activity/Vol] 94 U/L High 0-40 [facility] Comment on above: Performed By: #### C MATHEW, CMP, , PINR ####[facility] ([id number])[address], [place] [address] Anion gap [Moles/Vol] 5 mmol/L Normal 5-15 [facility] Comment on above: Performed By: #### C BCA, CMP, , PINR ####[facility] ([id number])[address], [place] [address] AST [Catalytic activity/Vol] 81 U/L High 0-41 [facility] Comment on above: Performed By: #### C BCA, CMP, , PINR ####[facility] ([id number])[address], [place] [address] Bilirubin [Mass/Vol] 0.6 mg/dL Normal 0.3-1.2 [facility] Comment on above: Performed By: #### C BCA, CMP, , PINR ####[facility] ([id number])[address], [place] [address] Calcium [Mass/Vol] 7.8 mg/dL Low 8.5-10.5 [facility] Comment on above: Performed By: #### C BCA, CMP, , PINR ####[facility] ([id number])[address], [place] [address] Chloride [Moles/Vol] 102 mmol/L Normal 98-109 [facility] Comment on above: Performed By: #### C BCA, CMP, , PINR ####[facility] ([id number])[address], [place] [address] CO2 [Moles/Vol] 37 mmol/L High 22-32 [facility] Comment on above: Performed By: #### C BCA, CMP, , PINR ####[facility] ([id number])[address] [address], [place] [address] Creatinine [Mass/Vol] 0.94 mg/dL Normal 0.60-1.30 [facility] Comment on above: Result Comment: METH OD TRACEABLE TO IDMS STANDARD Performed By: #### C MATHEW CMP, , PINR ####[facility] ([id number])[address] [address], [place] [address] eGFR (CKD-EPI) NON-RACE DEPENDENT >90 Normal >59 [facility] Comment on above: Result Comment: Reported eGFR is based on the CKD-EPI 2020 equation that does not use a race coefficient. Performed By: #### C MATHEW CMP, , PINR ####[facility] ([id number])[address], [place] [address] Glucose [Mass/Vol] 115 mg/dL High 65-99 [facility] Comment on above: Performed By: #### C MATHEW [facility], , PINR ####[facility] ([id number])[address], [place] [address] Potassium [Moles/Vol] 4.4 mmol/L Normal 3.5-5.0 [facility] Comment on above: Performed By: #### C MATHEW, CMP, , PINR ####[facility] ([id number])[address] [address], [place] [address] Protein [Mass/Vol] 4.7 g/dL Low 6.0-8.0 [facility] Comment on above: Performed By: #### C BCA, CMP, , PINR ####[facility] ([id number])[address], [place] [address] Sodium [Moles/Vol] 144 mmol/L Normal 134-146 [facility] Comment on above: Performed By: #### C MATHEW, CMP, 01609-0, PINR ####[facility] ([id number])[address], [address], [place] [address] Urea nitrogen [Mass/Vol] 38 mg/dL High 5-23 [facility] Comment on above: Performed By: #### C BCA, CMP, 95957-5, PINR ####[facility] ([id number])[address], [address], [place] [address] Comprehensive metabolic pane roberto 01-01-2024 ALT No additional P-5'-P [Catalytic activity/Vol] 94 U/L High 0 - 40 U/L [facility] eGFR (CKD-EPI)non-race dependent - PINF [facility] Glucose Glucometer (BldC) [M ass/Vol]on 01-01-2024 Glucose [Mass/Vol] 92 mg/dL 65 - 99 mg/dL [facility] Glucose [Mass/Vol] 96 mg/dL 65 - 99 mg/dL [facility] Glucose [Mass/Vol] 92 mg/dL Normal 65-99 [facility] Glucose [Mass/Vol] 96 mg/dL Normal 65-99 [facility] Glucose [Mass/Vol] 139 mg/dL High 65-99 [facility] Glucose [Mass/Vol] 208 mg/dL High 65 - 99 mg/dL [facility] Glucose [Mass/Vol] 208 mg/dL High 65-99 [facility] Glucose [Mass/Vol] 207 mg/dL High 65 - 99 mg/dL [facility] Glucose [Mass/Vol] 207 mg/dL High 65-99 [facility] Glucose [Mass/Vol] 154 mg/dL High 65 - 99 mg/dL [facility] Glucose [Mass/Vol] 154 mg/dL High 65-99 [facility] Glucose [Mass/Vol] 241 mg/dL High 65 - 99 mg/dL [facility] Glucose [Mass/Vol] 241 mg/dL High 65-99 [facility] Interpretation and review of laboratory results Abnormal [facility] Interpretation and review of laboratory results Abnormal [facility] Interpretation and review of laboratory results Abnormal [facility] Interpretation and review of laboratory results Abnormal [facility] Laboratory - Chemistry and C hemistry - challengeon 01-01-2024 Magnesium [Mass/Vol] 2.1 mg/dL Normal 1.8-2.6 [facility] Comment on above: Performed By: #### Aquiles CARMONA CMP, , PINR ####[facility] ([id number])[address], [address] [place] [address] No Panel Informationon 01-01 Interpretation and review of laboratory results Abnormal [facility] PROTIME AND INRon 01-01-2024 INR Coag (PPP) [Relative time] 2.5 {INR} High 0.8-1.1 [facility] Comment on above: Performed By: #### Aquiles CARMONA CMP, , PINR ####[facility] ([id number])[address], [address] [place] [address] PT Coag (PPP) [Time] 27.7 s High 9.8-13.2 [facility] Comment on above: Performed By: #### Aquiles CARMONA CMP, , PINR ####[facility] ([id number])[address], [address] [place] [address] CBC AND AUTO DIFFon 12-31-19 24 ABSOLUTE BASOPHIL 0.1 X10E9/L Normal 0.0-0.2 [facility] Comment on above: Performed By: #### Aquiles CARMONA CMP, , PINR ####[facility] ([id number])[address], [address] [place] [address] ABSOLUTE NEUTROPHIL 7.1 X10E9/L High 1.5-6.6 [facility] Comment on above: Performed By: #### C BCA, CMP, , PINR ####[facility] ([id number])[address], [address], [place] [address] Basophils/100 WBC (Bld) 0.8 % Normal [facility] Comment on above: Performed By: #### C BCA, CMP, , PINR ####[facility] ([id number])[address] [place] [address] Eosinophils (Bld) [#/Vol] 0.5 10*3/uL High 0.0-0.4 [facility] Comment on above: Performed By: #### C BCA, CMP, , PINR ####[facility] ([id number])[address], [address] [address] Eosinophils/100 WBC (Bld) 5.3 % Normal [facility] Comment on above: Performed By: #### C BCA, CMP, , PINR ####[facility] ([id number])[address] [place] [address] Erythrocyte distribution width (RBC) [Ratio] 14.9 % Normal 11.5-15.0 [facility] Comment on above: Performed By: #### C BCA, CMP, , PINR ####[facility] ([id number])[address] [place] [address] Hematocrit (Bld) [Volume fraction] 37.5 % Low 39-49 [facility] Comment on above: Performed By: #### C BCA, CMP, , PINR ####[facility] ([id number])[address] [address] Hemoglobin (Bld) [Mass/Vol] 12.7 g/dL Low 13.0-17.0 [facility] Comment on above: Performed By: #### C MATHEW, CMP, , PINR ####[facility] ([id number])[address], [address] [address] Lymphocytes (Bld) [#/Vol] 1.0 10*3/uL Normal 1.0-3.5 [facility] Comment on above: Performed By: #### C MATHEW, CMP, , PINR ####[facility] ([id number])[address] [address] Lymphocytes/100 WBC (Bld) 10.9 % Normal [facility] Comment on above: Performed By: #### C MATHEW, CMP, , PINR ####[facility] ([id number])[address], [address] [address] MCH (RBC) [Entitic mass] 31.4 pg Normal 27-34 [facility] Comment on above: Performed By: #### C MATHEW, CMP, , PINR ####[facility] ([id number])[address] [address] MCHC (RBC) [Mass/Vol] 33.8 g/dL Normal 32-36 [facility] Comment on above: Performed By: #### C MATHEW, CMP, , PINR ####[facility] ([id number])[address] [address] MCV (RBC) [Entitic vol] 93 fL Normal 80-100 [facility] Comment on above: Performed By: #### Aquiles BCA, CMP, , PINR ####[facility] ([id number])[address], [address] [address] Monocytes (Bld) [#/Vol] 0.9 10*3/uL Normal 0-0.9 [facility] Comment on above: Performed By: #### C BCA, CMP, , PINR ####[facility] ([id number])[address] [place] [address] Monocytes/100 WBC (Bld) 9.6 % Normal [facility] Comment on above: Performed By: #### C BCA, CMP, , PINR ####[facility] ([id number])[address] [address] Neutrophils/100 WBC (Bld) 73.4 % Normal [facility] Comment on above: Performed By: #### C BCA, CMP, , PINR ####[facility] ([id number])[address] [place] [address] Platelet mean volume (Bld) [Entitic vol] 8.4 fL Normal 7-12 [facility] Comment on above: Performed By: #### C BCA, CMP, , PINR ####[facility] ([id number])[address], [address] [address] Platelets (Bld) [#/Vol] 205 10*3/uL Normal 150-450 [facility] Comment on above: Performed By: #### C BCA, CMP, , PINR ####[facility] ([id number])[address], [place] [address] RBC COUNT 4.03 X10E12/L Low 4.10-5.[address] [facility] Comment on above: Performed By: #### C BCA, CMP, , PINR ####[facility] ([id number])[address] [address] WBC (Bld) [#/Vol] 9.6 10*3/uL Normal 4.0-11.0 [facility] Comment on above: Performed By: #### C BCA, CMP, 60980-3, PINR ####[facility] ([id number])[address] [facility], [address] [place] [address] CBC auto differentialon Basophils (Bld) [#/Vol] 0.1 10*3/uL [facility] Basophils/100 WBC (Bld) 0.8 % [facility] Eosinophils (Bld) [#/Vol] 0.5 10*3/uL High [facility] Eosinophils/100 WBC (Bld) 5.3 % [facility] Erythrocyte distribution width (RBC) [Ratio] 14.9 % 11.5 - 15.0 % [facility] Hematocrit (Bld) [Volume fraction] 37.5 % Low 39 - 49 % [facility] Hemoglobin (Bld) [Mass/Vol] 12.7 g/dL Low 13.0 - 17.0 g/dL [facility] Lymphocytes (Bld) [#/Vol] 1.0 10*3/uL [facility] Lymphocytes/100 WBC (Bld) 10.9 % [facility] MCH (RBC) [Entitic mass] 31.4 pg 27 - 34 pg [facility] MCHC (RBC) [Mass/Vol] 33.8 g/dL 32 - 36 g/dL [facility] MCV (RBC) [Entitic vol] 93 fL 80 - 100 fL [facility] Monocytes (Bld) [#/Vol] 0.9 10*3/uL [facility] Monocytes/100 WBC (Bld) 9.6 % [facility] Neutrophils (Bld) [#/Vol] 7.1 10*3/uL High [facility] Neutrophils/100 WBC (Bld) 73.4 % [facility] Platelet mean volume (Bld) [Entitic vol] 8.4 fL 7 - 12 fL [facility] Platelets (Bld) [#/Vol] 205 10*3/uL [facility] RBC (Bld) [#/Vol] 4.03 10*6/uL Low [facility] WBC corrected for nucl RBC Auto (Bld) [#/Vol] 9.6 [facility] COMPREHENSIVE METABOLIC PANE Roberto 12-31-2023 Albumin [Mass/Vol] 2.4 g/dL Low 3.2-5.3 [facility] Comment on above: Performed By: #### C BCA, CMP, , PINR ####[facility] ([id number])[address], [place] [address] ALP [Catalytic activity/Vol] 298 U/L High 39-130 [facility] Comment on above: Performed By: #### C BCA, CMP, , PINR ####[facility] ([id number])[address], [place] [address] ALT [Catalytic activity/Vol] 92 U/L High 0-40 [facility] Comment on above: Performed By: #### C BCA, CMP, , PINR ####[facility] ([id number])[address], [place] [address] Anion gap [Moles/Vol] 8 mmol/L Normal 5-15 [facility] Comment on above: Performed By: #### C BCA, CMP, , PINR ####[facility] ([id number])[address], [place] [address] AST [Catalytic activity/Vol] 66 U/L High 0-41 [facility] Comment on above: Performed By: #### C BCA, CMP, , PINR ####[facility] ([id number])[address], [place] [address] Bilirubin [Mass/Vol] 0.7 mg/dL Normal 0.3-1.2 [facility] Comment on above: Performed By: #### C BCA, CMP, , PINR ####[facility] ([id number])[address], [place] [address] Calcium [Mass/Vol] 7.9 mg/dL Low 8.5-10.5 [facility] Comment on above: Performed By: #### C MATHEW CMP, , PINR ####[facility] ([id number])[address], [place] [address] Chloride [Moles/Vol] 103 mmol/L Normal 98-109 [facility] Comment on above: Performed By: #### C MATHEW, CMP, , PINR ####[facility] ([id number])[address], [place] [address] CO2 [Moles/Vol] 31 mmol/L Normal 22-32 [facility] Comment on above: Performed By: #### C MATHEW, CMP, , PINR ####[facility] ([id number])[address] [address] [place] [address] Creatinine [Mass/Vol] 0.95 mg/dL Normal 0.60-1.30 [facility] Comment on above: Result Comment: METH OD TRACEABLE TO IDMS STANDARD Performed By: #### C MATHEW CMP, , PINR ####[facility] ([id number])[address] [address], [place] [address] eGFR (CKD-EPI) NON-RACE DEPENDENT >90 Normal >59 [facility] Comment on above: Result Comment: Reported eGFR is based on the CKD-EPI 2021 equation that does not use a race coefficient. Performed By: #### C BCA, CMP, , PINR ####[facility] ([id number])[address] [address] [address] Glucose [Mass/Vol] 114 mg/dL High 65-99 [facility] Comment on above: Performed By: #### C BCA, CMP, , PINR ####[facility] ([id number])[address], [place] [address] Potassium [Moles/Vol] 4.3 mmol/L Normal 3.5-5.0 [facility] Comment on above: Performed By: #### C BCA, CMP, [id number], PINR ####[facility] ([id number])[address], [address] [place] [address] Protein [Mass/Vol] 5.1 g/dL Low 6.0-8.0 [facility] Comment on above: Performed By: #### C BCA, CMP, , PINR ####[facility] ([id number])[address], [address] [place] [address] Sodium [Moles/Vol] 142 mmol/L Normal 134-146 [facility] Comment on above: Performed By: #### C BCA, CMP, , PINR ####[facility] ([id number])[address], [address] [place] [address] Urea nitrogen [Mass/Vol] 37 mg/dL High 5-23 [facility] Comment on above: Performed By: #### C BCA, CMP, , PINR ####[facility] ([id number])[address], [address] [place] [address] Comprehensive metabolic pane roberto 12-31-2023 Albumin [Mass/Vol] 2.4 g/dL Low 3.2 - 5.3 g/dL [facility] ALP [Catalytic activity/Vol] 298 U/L High 39 - 130 U/L [facility] ALT No additional P-5'-P [Catalytic activity/Vol] 92 U/L High 0 - 40 U/L [facility] Anion gap [Moles/Vol] 8 mmol/L 5 - 15 mmol/L [facility] AST [Catalytic activity/Vol] 66 U/L High 0 - 41 U/L [facility] Bilirubin [Mass/Vol] 0.7 mg/dL 0.3 - 1 .2 mg/dL [facility] Calcium [Mass/Vol] 7.9 mg/dL Low 8.5 - 10. 5 mg/dL [facility] Chloride [Moles/Vol] 103 mmol/L 98 - 10 9 mmol/L [facility] CO2 [Moles/Vol] 31 mmol/L 22 - 32 mmol/L [facility] Creatinine [Mass/Vol] 0.95 mg/dL 0.60 - 1.30 mg/dL [facility] eGFR (CKD-EPI)non-race dependent - PINF [facility] Glucose [Mass/Vol] 114 mg/dL High 65 - 99 mg/dL [facility] Potassium [Moles/Vol] 4.3 mmol/L 3.5 - 5.0 mmol/L [facility] Protein [Mass/Vol] 5.1 g/dL Low 6.0 - 8.0 g/dL [facility] Sodium [Moles/Vol] 142 mmol/L 134 - 146 mmol/L [facility] Urea nitrogen [Mass/Vol] 37 mg/dL High 5 - 23 mg/dL [facility] Glucose Glucometer (BldC) [M ass/Vol]on 12-31-2023 Glucose [Mass/Vol] 113 mg/dL High 65 - 99 mg/dL [facility] Glucose [Mass/Vol] 113 mg/dL High 65-99 [facility] Glucose [Mass/Vol] 153 mg/dL High 65 - 99 mg/dL [facility] Glucose [Mass/Vol] 153 mg/dL High 65-99 [facility] Glucose [Mass/Vol] 150 mg/dL High 65 - 99 mg/dL [facility] Glucose [Mass/Vol] 150 mg/dL High 65-99 [facility] Glucose [Mass/Vol] 166 mg/dL High 65 - 99 mg/dL [facility] Glucose [Mass/Vol] 166 mg/dL High 65-99 [facility] Glucose [Mass/Vol] 292 mg/dL High 65 - 99 mg/dL [facility] Glucose [Mass/Vol] 292 mg/dL High 65-99 [facility] Interpretation and review of laboratory results Abnormal [facility] Interpretation and review of laboratory results Abnormal [facility] Interpretation and review of laboratory results Abnormal [facility] Interpretation and review of laboratory results Abnormal [facility] Interpretation and review of laboratory results Abnormal [facility] MAGNESIUMon 12-31-2023 Magnesium [Mass/Vol] 2.1 mg/dL Normal 1.8-2.6 [facility] Comment on above: Performed By: #### C CARMEN CARMONA, , PINR ####[facility] ([id number])[address], [address] [place] [address] Magnesiumon 12-31-2023 Magnesium [Mass/Vol] 2.1 mg/dL 1.8 - 2 .6 mg/dL [facility] No Panel Informationon 12-31 Interpretation and review of laboratory results Abnormal [facility] PROTIME AND INRon 12-31-2023 INR Coag (PPP) [Relative time] 2.2 {INR} High 0.8-1.1 [facility] Comment on above: Performed By: #### Aquiles CARMONA [facility], , PINR ####[facility] ([id number])[address], [address] [place] [address] PT Coag (PPP) [Time] 24.4 s High 9.8-13.2 [facility] Comment on above: Performed By: #### Aquiles CARMONA CMP, , PINR ####[facility] ([id number])[address], [place] [address] Protime & INRon 12-31-2023 INR Coag (PPP) [Relative time] 2.2 {INR} High [facility] PT Coag (PPP) [Time] 24.4 s High [facility] CBC AND AUTO DIFFon 12-30-19 ABSOLUTE BASOPHIL 0.0 X10E9/L Normal 0.0-0.2 [facility] Comment on above: Performed By: #### C MATHEW CMP, , PINR #### [facility] ([id number]) [address], [address] [place] [address] ABSOLUTE NEUTROPHIL 6.6 X10E9/L Normal 1.5-6.6 [facility] Comment on above: Performed By: #### C MATHEW CMP, , PINR #### [facility] ([id number]) [address], [address] [place] [address] Basophils/100 WBC (Bld) 0.5 % Normal [facility] Comment on above: Performed By: #### C MATHEW CMP, , PINR #### [facility] ([id number]) [address], [address] [place] [address] Eosinophils (Bld) [#/Vol] 0.4 10*3/uL Normal 0.0-0.4 [facility] Comment on above: Performed By: #### C MATHEW CMP, , PINR #### [facility] ([id number]) [address], [address] [place] [address] Eosinophils/100 WBC (Bld) 4.5 % Normal [facility] Comment on above: Performed By: #### C MATHEW CMP, , PINR #### [facility] ([id number]) [address], [address] [place] [address] Erythrocyte distribution width (RBC) [Ratio] 14.7 % Normal 11.5-15.0 [facility] Comment on above: Performed By: #### C BCA, CMP, , PINR #### [facility] ([id number]) [address], [address] [place] [address] Hematocrit (Bld) [Volume fraction] 36.0 % Low 39-49 [facility] Comment on above: Performed By: #### C BCA, CMP, , PINR #### [facility] ([id number]) [address], [address] [place] [address] Hemoglobin (Bld) [Mass/Vol] 12.2 g/dL Low 13.0-17.0 [facility] Comment on above: Performed By: #### C MATHEW CMP, , PINR #### [facility] ([id number]) [address], [address] [place] [address] Lymphocytes (Bld) [#/Vol] 0.5 10*3/uL Low 1.0-3.5 [facility] Comment on above: Performed By: #### C MATHEW, CMP, , PINR #### [facility] ([id number]) [address], [facility] [address] [place] [address] Lymphocytes/100 WBC (Bld) 6.3 % Normal [facility] Comment on above: Performed By: #### Aquiles BCA, CMP, , PINR #### [facility] ([id number]) [address], [facility] [address] [place] [address] MCH (RBC) [Entitic mass] 31.5 pg Normal 27-34 [facility] Comment on above: Performed By: #### Aquiles BCA, CMP, , PINR #### [facility] ([id number]) [address], [address] [place] [address] MCHC (RBC) [Mass/Vol] 33.9 g/dL Normal 32-36 [facility] Comment on above: Performed By: #### Aquiles CARMONA CMP, , PINR #### [facility] ([id number]) [address], [address] [place] [address] MCV (RBC) [Entitic vol] 93 fL Normal 80-100 [facility] Comment on above: Performed By: #### Aquiles BCA, CMP, , PINR #### [facility] ([id number]) [address], [address] [place] [address] Monocytes (Bld) [#/Vol] 0.9 10*3/uL Normal 0-0.9 [facility] Comment on above: Performed By: #### C BCA, CMP, , PINR #### [facility] ([id number]) [address], [address] [place] [address] Monocytes/100 WBC (Bld) 10.5 % Normal [facility] Comment on above: Performed By: #### C MATHEW, CMP, , PINR #### [facility] ([id number]) [address], [address] [place] [address] Neutrophils/100 WBC (Bld) 78.2 % Normal [facility] Comment on above: Performed By: #### Aquiles BCA, CMP, , PINR #### [facility] ([id number]) [address], [address] [place] [address] Platelet mean volume (Bld) [Entitic vol] 8.4 fL Normal 7-12 [facility] Comment on above: Performed By: #### Aquiles BCA, CMP, , PINR #### [facility] ([id number]) [address], [address] [place] [address] Platelets (Bld) [#/Vol] 159 10*3/uL Normal 150-450 [facility] Comment on above: Performed By: #### C BCA, CMP, , PINR #### [facility] ([id number]) [address], [address] [place] [address] RBC COUNT 3.88 X10E12/L Low 4.10-5.[address] [facility] Comment on above: Performed By: #### Aquiles BCA, CMP, , PINR #### [facility] ([id number]) [address], [address] [place] [address] WBC (Bld) [#/Vol] 8.4 10*3/uL Normal 4.0-11.0 [facility] Comment on above: Performed By: #### C BCA, CMP, , PINR #### [facility] ([id number]) [address], [address] [place] [address] CBC auto differentialon Basophils (Bld) [#/Vol] 0.0 10*3/uL [facility] Neutrophils (Bld) [#/Vol] 6.6 10*3/uL [facility] RBC (Bld) [#/Vol] 3.88 10*6/uL Low [facility] WBC corrected for nucl RBC Auto (Bld) [#/Vol] 8.4 [facility] COMPREHENSIVE METABOLIC PANE Roberto 12-30-2023 Albumin [Mass/Vol] 2.2 g/dL Low 3.2-5.3 [facility] Comment on above: Performed By: #### C BCA, CMP, , PINR #### [facility] ([id number]) [address], [address] [place] [address] ALP [Catalytic activity/Vol] 298 U/L High 39-130 [facility] Comment on above: Performed By: #### C BCA, CMP, , PINR #### [facility] ([id number]) [address], [address] [place] [address] ALT [Catalytic activity/Vol] 93 U/L High 0-40 [facility] Comment on above: Performed By: #### C BCA, CMP, , PINR #### [facility] ([id number]) [address], [address] [place] [address] Anion gap [Moles/Vol] 6 mmol/L Normal 5-15 [facility] Comment on above: Performed By: #### C BCA, CMP, , PINR #### [facility] ([id number]) [address], [address] [place] [address] AST [Catalytic activity/Vol] 81 U/L High 0-41 [facility] Comment on above: Performed By: #### C BCA, CMP, , PINR #### [facility] ([id number]) [address], [address] [place] [address] Bilirubin [Mass/Vol] 0.9 mg/dL Normal 0.3-1.2 [facility] Comment on above: Performed By: #### C BCA, CMP, , PINR #### [facility] ([id number]) [address], [address] [place] [address] Calcium [Mass/Vol] 7.9 mg/dL Low 8.5-10.5 [facility] Comment on above: Performed By: #### C BCA, CMP, , PINR #### [facility] ([id number]) [address], [address] [place] [address] Chloride [Moles/Vol] 103 mmol/L Normal 98-109 [facility] Comment on above: Performed By: #### C BCA, CMP, , PINR #### [facility] ([id number]) [address], [address] [place] [address] CO2 [Moles/Vol] 34 mmol/L High 22-32 [facility] Comment on above: Performed By: #### C BCA, CMP, , PINR #### [facility] ([id number]) [address], [address] [place] [address] Creatinine [Mass/Vol] 1.06 mg/dL Normal 0.60-1.30 [facility] Comment on above: Result Comment: METH OD TRACEABLE TO IDMS STANDARD Performed By: #### C BCA, CMP, , PINR #### [facility] ([id number]) [address], [address] [place] [address] GFR/1.73 sq M.predicted among non-blacks MDRD (S/P/Bld) [Vol rate/Area] 81 mL/min/{1.73_m2} Normal >59 [facility] Comment on above: Result Comment: Reported eGFR is based on the CKD-EPI 2020 equation that does not use a race coefficient. Performed By: #### C MATHEW [facility], , PINR #### [facility] ([id number]) [address], [address] [place] [address] Glucose [Mass/Vol] 186 mg/dL High 65-99 [facility] Comment on above: Performed By: #### C CARMEN CARMONA, , PINR #### [facility] ([id number]) [address], [address] [place] [address] Potassium [Moles/Vol] 4.6 mmol/L Normal 3.5-5.0 [facility] Comment on above: Performed By: #### C MATHEW [facility], , PINR #### [facility] ([id number]) [address], [address] [place] [address] Protein [Mass/Vol] 4.7 g/dL Low 6.0-8.0 [facility] Comment on above: Performed By: #### C CARMEN CARMONA, , PINR #### [facility] ([id number]) [address], [address] [place] [address] Sodium [Moles/Vol] 143 mmol/L Normal 134-146 [facility] Comment on above: Performed By: #### C MATHEW CMP, , PINR #### [facility] ([id number]) [address], [address] [place] [address] Urea nitrogen [Mass/Vol] 34 mg/dL High 5-23 [facility] Comment on above: Performed By: #### C CARMEN CARMONA, 250[address]-9, PINR #### [facility] ([id number]) [address], [address] [place] [address] Comprehensive metabolic pane roberto 12-30-2023 ALT No additional P-5'-P [Catalytic activity/Vol] 93 U/L High 0 - 40 U/L [facility] eGFR (CKD-EPI)non-race dependent 81 - PINF [facility] Glucose Glucometer (BldC) [M ass/Vol]on 12-30-2023 Glucose [Mass/Vol] 116 mg/dL High 65 - 99 mg/dL [facility] Glucose [Mass/Vol] 116 mg/dL High 65-99 [facility] Glucose [Mass/Vol] 176 mg/dL High 65-99 [facility] Glucose [Mass/Vol] 232 mg/dL High 65 - 99 mg/dL [facility] Glucose [Mass/Vol] 232 mg/dL High 65-99 [facility] Glucose [Mass/Vol] 297 mg/dL High 65 - 99 mg/dL [facility] Glucose [Mass/Vol] 297 mg/dL High 65-99 [facility] Glucose [Mass/Vol] 190 mg/dL High 65 - 99 mg/dL [facility] Glucose [Mass/Vol] 190 mg/dL High 65-99 [facility] Interpretation and review of laboratory results Abnormal [facility] Interpretation and review of laboratory results Abnormal [facility] Interpretation and review of laboratory results Abnormal [facility] Interpretation and review of laboratory results Abnormal [facility] Laboratory - Chemistry and C hemistry - challengeon 12-30-2023 Magnesium [Mass/Vol] 2.0 mg/dL Normal 1.8-2.6 [facility] Comment on above: Performed By: #### C CARMEN CARMONA, 75427-7, PINR #### [facility] ([id number]) [address], [address] [place] [address] No Panel Informationon 12-30 Interpretation and review of laboratory results Abnormal [facility] PROTIME AND INRon 12-30-2023 INR Coag (PPP) [Relative time] 2.1 {INR} High 0.8-1.1 [facility] Comment on above: Performed By: #### Aquiles CARMONA CMP, , PINR #### [facility] ([id number]) [address], [address] [place] [address] PT Coag (PPP) [Time] 23.6 s High 9.8-13.2 [facility] Comment on above: Performed By: #### Aquiles CARMONA CMP, , PINR #### [facility] ([id number]) [address], [address] [place] [address] CBC AND AUTO DIFFon 12-29-19 ABSOLUTE BASOPHIL 0.0 X10E9/L Normal 0.0-0.2 [facility] Comment on above: Performed By: #### Aquiles CARMONA CMP, , PINR #### [facility] ([id number]) [address], [address] [place] [address] ABSOLUTE NEUTROPHIL 4.5 X10E9/L Normal 1.5-6.6 [facility] Comment on above: Performed By: #### Aquiles CARMONA CMP, , PINR #### [facility] ([id number]) [address], [address] [place] [address] Basophils/100 WBC (Bld) 0.4 % Normal [facility] Comment on above: Performed By: #### Aquiles CARMONA CMP, , PINR #### [facility] ([id number]) [address], [address] [place] [address] Eosinophils (Bld) [#/Vol] 0.5 10*3/uL High 0.0-0.4 [facility] Comment on above: Performed By: #### C MATHEW CMP, , PINR #### [facility] ([id number]) [address], [address] [place] [address] Eosinophils/100 WBC (Bld) 7.1 % Normal [facility] Comment on above: Performed By: #### C MATHEW, CMP, , PINR #### [facility] ([id number]) [address], [address] [place] [address] Erythrocyte distribution width (RBC) [Ratio] 14.9 % Normal 11.5-15.0 [facility] Comment on above: Performed By: #### C MATHEW, CMP, , PINR #### [facility] ([id number]) [address] [place] [address] Hematocrit (Bld) [Volume fraction] 35.8 % Low 39-49 [facility] Comment on above: Performed By: #### C MATHEW, CMP, , PINR #### [facility] ([id number]) [address], [address] [place] [address] Hemoglobin (Bld) [Mass/Vol] 12.2 g/dL Low 13.0-17.0 [facility] Comment on above: Performed By: #### C MATHEW, CMP, , PINR #### [facility] ([id number]) [address], [address] [place] [address] Lymphocytes (Bld) [#/Vol] 0.6 10*3/uL Low 1.0-3.5 [facility] Comment on above: Performed By: #### C BCA, CMP, , PINR #### [facility] ([id number]) [address], [address] [place] [address] Lymphocytes/100 WBC (Bld) 8.9 % Normal [facility] Comment on above: Performed By: #### C BCA, CMP, , PINR #### [facility] ([id number]) [address], [address] [place] [address] MCH (RBC) [Entitic mass] 31.4 pg Normal 27-34 [facility] Comment on above: Performed By: #### C BCA, CMP, , PINR #### [facility] ([id number]) [address], [address] [place] [address] MCHC (RBC) [Mass/Vol] 34.2 g/dL Normal 32-36 [facility] Comment on above: Performed By: #### C BCA, CMP, , PINR #### [facility] ([id number]) [address] [place] [address] MCV (RBC) [Entitic vol] 92 fL Normal 80-100 [facility] Comment on above: Performed By: #### C BCA, CMP, , PINR #### [facility] ([id number]) [address] [place] [address] Monocytes (Bld) [#/Vol] 0.9 10*3/uL Normal 0-0.9 [facility] Comment on above: Performed By: #### C BCA, CMP, , PINR #### [facility] ([id number]) [address], [address] [place] [address] Monocytes/100 WBC (Bld) 13.3 % Normal [facility] Comment on above: Performed By: #### C BCA, CMP, , PINR #### [facility] ([id number]) [address], [address] [place] [address] Neutrophils/100 WBC (Bld) 70.3 % Normal [facility] Comment on above: Performed By: #### C BCA, CMP, , PINR #### [facility] ([id number]) [address], [address] [place] [address] Platelet mean volume (Bld) [Entitic vol] 8.2 fL Normal 7-12 [facility] Comment on above: Performed By: #### Aquiles CARMONA, CMP, , PINR #### [facility] ([id number]) [address], [address] [place] [address] Platelets (Bld) [#/Vol] 139 10*3/uL Low 150-450 [facility] Comment on above: Performed By: #### Aquiles CARMONA CMP, , PINR #### [facility] ([id number]) [address] [place] [address] RBC COUNT 3.90 X10E12/L Low 4.10-5.[address] [facility] Comment on above: Performed By: #### Aquiles CARMONA, [facility], , PINR #### [facility] ([id number]) [address], [facility] [address] [place] [address] WBC (Bld) [#/Vol] 6.4 10*3/uL Normal 4.0-11.0 [facility] Comment on above: Performed By: #### Aquiles CARMONA, CMP, , PINR #### [facility] ([id number]) [address], [address] [place] [address] CBC auto differentialon 02-0 -2023 Basophils (Bld) [#/Vol] 0.0 10*3/uL [facility] Basophils/100 WBC (Bld) 0.4 % [facility] Eosinophils (Bld) [#/Vol] 0.5 10*3/uL High [facility] Eosinophils/100 WBC (Bld) 7.1 % [facility] Erythrocyte distribution width (RBC) [Ratio] 14.9 % 11.5 - 15.0 % [facility] Hematocrit (Bld) [Volume fraction] 35.8 % Low 39 - 49 % [facility] Hemoglobin (Bld) [Mass/Vol] 12.2 g/dL Low 13.0 - 17.0 g/dL [facility] Lymphocytes (Bld) [#/Vol] 0.6 10*3/uL Low [facility] Lymphocytes/100 WBC (Bld) 8.9 % [facility] MCH (RBC) [Entitic mass] 31.4 pg 27 - 34 pg [facility] MCHC (RBC) [Mass/Vol] 34.2 g/dL 32 - 36 g/dL [facility] MCV (RBC) [Entitic vol] 92 fL 80 - 100 fL [facility] Monocytes (Bld) [#/Vol] 0.9 10*3/uL [facility] Monocytes/100 WBC (Bld) 13.3 % [facility] Neutrophils (Bld) [#/Vol] 4.5 10*3/uL [facility] Neutrophils/100 WBC (Bld) 70.3 % [facility] Platelet mean volume (Bld) [Entitic vol] 8.2 fL 7 - 12 fL [facility] Platelets (Bld) [#/Vol] 139 10*3/uL Low [facility] RBC (Bld) [#/Vol] 3.90 10*6/uL Low [facility] WBC corrected for nucl RBC Auto (Bld) [#/Vol] 6.4 [facility] COMPREHENSIVE METABOLIC PANE Roberto 12-29-2023 Albumin [Mass/Vol] 2.1 g/dL Low 3.2-5.3 [facility] Comment on above: Performed By: #### C BCA, CMP, 60702-7, PINR #### [facility] ([id number]) [address], [address] [place] [address] ALP [Catalytic activity/Vol] 192 U/L High 39-130 [facility] Comment on above: Performed By: #### C BCA, CMP, 63241-5, PINR #### [facility] ([id number]) [address] [place] [address] ALT [Catalytic activity/Vol] 58 U/L High 0-40 [facility] Comment on above: Performed By: #### C BCA, CMP, , PINR #### [facility] ([id number]) [address], [address] [place] [address] Anion gap [Moles/Vol] 6 mmol/L Normal 5-15 [facility] Comment on above: Performed By: #### C BCA, CMP, , PINR #### [facility] ([id number]) [address], [address] [place] [address] AST [Catalytic activity/Vol] 39 U/L Normal 0-41 [facility] Comment on above: Performed By: #### C BCA, CMP, , PINR #### [facility] ([id number]) [address] [place] [address] Bilirubin [Mass/Vol] 0.8 mg/dL Normal 0.3-1.2 [facility] Comment on above: Performed By: #### C BCA, CMP, , PINR #### [facility] ([id number]) [address], [address] [place] [address] Calcium [Mass/Vol] 7.6 mg/dL Low 8.5-10.5 [facility] Comment on above: Performed By: #### C BCA, CMP, , PINR #### [facility] ([id number]) [address], [address] [place] [address] Chloride [Moles/Vol] 106 mmol/L Normal 98-109 [facility] Comment on above: Performed By: #### C BCA, CMP, , PINR #### [facility] ([id number]) [address], [address] [place] [address] CO2 [Moles/Vol] 31 mmol/L Normal 22-32 [facility] Comment on above: Performed By: #### C CARMEN CARMONA, , PINR #### [facility] ([id number]) [address], [address] [place] [address] Creatinine [Mass/Vol] 0.87 mg/dL Normal 0.60-1.30 [facility] Comment on above: Result Comment: METH OD TRACEABLE TO IDMS STANDARD Performed By: #### C CARMEN CARMONA, , PINR #### [facility] ([id number]) [address], [address] [place] [address] eGFR (CKD-EPI) NON-RACE DEPENDENT >90 Normal >59 [facility] Comment on above: Result Comment: Reported eGFR is based on the CKD-EPI 2020 equation that does not use a race coefficient. Performed By: #### C CARMEN CARMONA, , PINR #### [facility] ([id number]) [address], [address] [place] [address] Glucose [Mass/Vol] 201 mg/dL High 65-99 [facility] Comment on above: Performed By: #### C CARMEN CARMONA, , PINR #### [facility] ([id number]) [address], [address] [place] [address] Potassium [Moles/Vol] 4.2 mmol/L Normal 3.5-5.0 [facility] Comment on above: Performed By: #### C MATHEW CMP, , PINR #### [facility] ([id number]) [address], [address] [place] [address] Protein [Mass/Vol] 4.5 g/dL Low 6.0-8.0 [facility] Comment on above: Performed By: #### C MATHEW CMP, , PINR #### [facility] ([id number]) [address], [address] [place] [address] Sodium [Moles/Vol] 143 mmol/L Normal 134-146 [facility] Comment on above: Performed By: #### C BCA, CMP, 98454-3, PINR #### [facility] ([id number]) [address], [address] [place] [address] Urea nitrogen [Mass/Vol] 30 mg/dL High 5-23 [facility] Comment on above: Performed By: #### C BCA, CMP, 01564-5, PINR #### [facility] ([id number]) [address], [address] [place] [address] Comprehensive metabolic pane roberto 12-29-2023 ALT No additional P-5'-P [Catalytic activity/Vol] 58 U/L High 0 - 40 U/L [facility] eGFR (CKD-EPI)non-race dependent - PINF [facility] Glucose Glucometer (BldC) [M ass/Vol]on 12-29-2023 Glucose [Mass/Vol] 131 mg/dL High 65 - 99 mg/dL [facility] Glucose [Mass/Vol] 131 mg/dL High 65-99 [facility] Glucose [Mass/Vol] 144 mg/dL High 65 - 99 mg/dL [facility] Glucose [Mass/Vol] 144 mg/dL High 65-99 [facility] Glucose [Mass/Vol] 151 mg/dL High 65 - 99 mg/dL [facility] Glucose [Mass/Vol] 151 mg/dL High 65-99 [facility] Glucose [Mass/Vol] 216 mg/dL High 65 - 99 mg/dL [facility] Glucose [Mass/Vol] 216 mg/dL High 65-99 [facility] Interpretation and review of laboratory results Abnormal [facility] Interpretation and review of laboratory results Abnormal [facility] Interpretation and review of laboratory results Abnormal [facility] Interpretation and review of laboratory results Abnormal [facility] Laboratory - Chemistry and C hemistry - challengeon 12-29-2023 Magnesium [Mass/Vol] 1.8 mg/dL Normal 1.8-2.6 [facility] Comment on above: Performed By: #### C CARMEN CARMONA, , PINR #### [facility] ([id number]) [address], [address] [place] [address] No Panel Informationon 12-29 Interpretation and review of laboratory results Abnormal [facility] PROTIME AND INRon 12-29-2023 INR Coag (PPP) [Relative time] 2.1 {INR} High 0.8-1.1 [facility] Comment on above: Performed By: #### C CARMEN CARMONA, , PINR #### [facility] ([id number]) [address], [address] [place] [address] PT Coag (PPP) [Time] 23.5 s High 9.8-13.2 [facility] Comment on above: Performed By: #### Aquiles CARMONA CMP, , PINR #### [facility] ([id number]) [address], [address] [place] [address] CBC AND AUTO DIFFon 12-28-19 24 ABSOLUTE BASOPHIL 0.0 X10E9/L Normal 0.0-0.2 [facility] Comment on above: Performed By: #### Aquiles CARMONA CMP, , PINR #### [facility] ([id number]) [address], [address] [place] [address] ABSOLUTE NEUTROPHIL 6.6 X10E9/L Normal 1.5-6.6 [facility] Comment on above: Performed By: #### Aquiles CARMONA CMP, , PINR #### [facility] ([id number]) [address], [address] [place] [address] Basophils/100 WBC (Bld) 0.6 % Normal [facility] Comment on above: Performed By: #### Aquiles CARMONA CMP, , PINR #### [facility] ([id number]) [address], [address] [place] [address] Eosinophils (Bld) [#/Vol] 0.4 10*3/uL Normal 0.0-0.4 [facility] Comment on above: Performed By: #### C MATHEW CMP, , PINR #### [facility] ([id number]) [address], [address] [place] [address] Eosinophils/100 WBC (Bld) 4.4 % Normal [facility] Comment on above: Performed By: #### C CARMEN CARMONA, , PINR #### [facility] ([id number]) [address], [facility] [address] [place] [address] Erythrocyte distribution width (RBC) [Ratio] 15.3 % High 11.5-15.0 [facility] Comment on above: Performed By: #### C ACRMEN CARMONA, , PINR #### [facility] ([id number]) [address], [facility] [address] [place] [address] Hematocrit (Bld) [Volume fraction] 40.7 % Normal 39-49 [facility] Comment on above: Performed By: #### C CARMEN CARMONA, , PINR #### [facility] ([id number]) [address], [facility] [address] [place] [address] Hemoglobin (Bld) [Mass/Vol] 13.6 g/dL Normal 13.0-17.0 [facility] Comment on above: Performed By: #### C MATHEW CMP, , PINR #### [facility] ([id number]) [address], [facility] [address] [place] [address] Lymphocytes (Bld) [#/Vol] 0.5 10*3/uL Low 1.0-3.5 [facility] Comment on above: Performed By: #### C BCA, CMP, , PINR #### [facility] ([id number]) [address], [address] [place] [address] Lymphocytes/100 WBC (Bld) 6.5 % Normal [facility] Comment on above: Performed By: #### C BCA, CMP, , PINR #### [facility] ([id number]) [address], [address] [place] [address] MCH (RBC) [Entitic mass] 31.0 pg Normal 27-34 [facility] Comment on above: Performed By: #### C BCA, CMP, , PINR #### [facility] ([id number]) [address], [address] [place] [address] MCHC (RBC) [Mass/Vol] 33.4 g/dL Normal 32-36 [facility] Comment on above: Performed By: #### C BCA, CMP, , PINR #### [facility] ([id number]) [address], [address] [place] [address] MCV (RBC) [Entitic vol] 93 fL Normal 80-100 [facility] Comment on above: Performed By: #### C BCA, CMP, , PINR #### [facility] ([id number]) [address], [address] [place] [address] Monocytes (Bld) [#/Vol] 0.9 10*3/uL Normal 0-0.9 [facility] Comment on above: Performed By: #### C BCA, CMP, , PINR #### [facility] ([id number]) [address], [address] [place] [address] Monocytes/100 WBC (Bld) 10.4 % Normal [facility] Comment on above: Performed By: #### C BCA, CMP, , PINR #### [facility] ([id number]) [address], [facility] [address] [place] [address] Neutrophils/100 WBC (Bld) 78.1 % Normal [facility] Comment on above: Performed By: #### Aquiles BCA, CMP, , PINR #### [facility] ([id number]) [address], [facility] [address] [place] [address] Platelet mean volume (Bld) [Entitic vol] 8.4 fL Normal 7-12 [facility] Comment on above: Performed By: #### C MATHEW, CMP, , PINR #### [facility] ([id number]) [address], [address] [address] Platelets (Bld) [#/Vol] 172 10*3/uL Normal 150-450 [facility] Comment on above: Performed By: #### Aquiles CARMONA, CMP, , PINR #### [facility] ([id number]) [address], [address] [address] RBC COUNT 4.38 X10E12/L Normal 4.10-5.[address] [facility] Comment on above: Performed By: #### Aquiles BCA, CMP, , PINR #### [facility] ([id number]) [address], [address] [address] WBC (Bld) [#/Vol] 8.4 10*3/uL Normal 4.0-11.0 [facility] Comment on above: Performed By: #### Aquiles BCA, CMP, , PINR #### [facility] ([id number]) [address], [address] [address] CBC auto differentialon 02-0 -2023 Basophils (Bld) [#/Vol] 0.0 10*3/uL [facility] Basophils/100 WBC (Bld) 0.6 % [facility] Eosinophils (Bld) [#/Vol] 0.4 10*3/uL [facility] Eosinophils/100 WBC (Bld) 4.4 % [facility] Erythrocyte distribution width (RBC) [Ratio] 15.3 % High 11.5 - 15.0 % [facility] Hematocrit (Bld) [Volume fraction] 40.7 % 39 - 49 % [facility] Hemoglobin (Bld) [Mass/Vol] 13.6 g/dL 13.0 - 17.0 g/dL [facility] Lymphocytes (Bld) [#/Vol] 0.5 10*3/uL Low [facility] Lymphocytes/100 WBC (Bld) 6.5 % [facility] MCH (RBC) [Entitic mass] 31.0 pg 27 - 34 pg [facility] MCHC (RBC) [Mass/Vol] 33.4 g/dL 32 - 36 g/dL [facility] MCV (RBC) [Entitic vol] 93 fL 80 - 100 fL [facility] Monocytes (Bld) [#/Vol] 0.9 10*3/uL [facility] Monocytes/100 WBC (Bld) 10.4 % [facility] Neutrophils (Bld) [#/Vol] 6.6 10*3/uL [facility] Neutrophils/100 WBC (Bld) 78.1 % [facility] Platelet mean volume (Bld) [Entitic vol] 8.4 fL 7 - 12 fL [facility] Platelets (Bld) [#/Vol] 172 10*3/uL [facility] RBC (Bld) [#/Vol] 4.38 10*6/uL [facility] WBC corrected for nucl RBC Auto (Bld) [#/Vol] 8.4 [facility] COMPREHENSIVE METABOLIC PANE Roberto 12-28-2023 Albumin [Mass/Vol] 2.2 g/dL Low 3.2-5.3 [facility] Comment on above: Performed By: #### C BCA, CMP, 27556-6, PINR #### [facility] ([id number]) [address] [facility], [address] [place] [address] ALP [Catalytic activity/Vol] 221 U/L High 39-130 [facility] Comment on above: Performed By: #### C MATHEW, CMP, , PINR #### [facility] ([id number]) [address], [address] [place] [address] ALT [Catalytic activity/Vol] 68 U/L High 0-40 [facility] Comment on above: Performed By: #### C BCA, CMP, , PINR #### [facility] ([id number]) [address], [address] [place] [address] Anion gap [Moles/Vol] 8 mmol/L Normal 5-15 [facility] Comment on above: Performed By: #### C BCA, CMP, , PINR #### [facility] ([id number]) [address], [address] [place] [address] AST [Catalytic activity/Vol] 51 U/L High 0-41 [facility] Comment on above: Performed By: #### C BCA, CMP, , PINR #### [facility] ([id number]) [address], [address] [place] [address] Bilirubin [Mass/Vol] 1.0 mg/dL Normal 0.3-1.2 [facility] Comment on above: Performed By: #### C BCA, CMP, , PINR #### [facility] ([id number]) [address], [address] [place] [address] Calcium [Mass/Vol] 7.9 mg/dL Low 8.5-10.5 [facility] Comment on above: Performed By: #### C BCA, CMP, , PINR #### [facility] ([id number]) [address], [address] [place] [address] Chloride [Moles/Vol] 106 mmol/L Normal 98-109 [facility] Comment on above: Performed By: #### C CARMEN CARMONA, , PINR #### [facility] ([id number]) [address], [address] [place] [address] CO2 [Moles/Vol] 28 mmol/L Normal 22-32 [facility] Comment on above: Performed By: #### C MATHEW [facility], , PINR #### [facility] ([id number]) [address], [address] [place] [address] Creatinine [Mass/Vol] 0.86 mg/dL Normal 0.60-1.30 [facility] Comment on above: Result Comment: METH OD TRACEABLE TO IDMS STANDARD Performed By: #### C CARMEN CARMONA, , PINR #### [facility] ([id number]) [address], [address] [place] [address] eGFR (CKD-EPI) NON-RACE DEPENDENT >90 Normal >59 [facility] Comment on above: Result Comment: Reported eGFR is based on the CKD-EPI 2020 equation that does not use a race coefficient. Performed By: #### C CARMEN CARMONA, , PINR #### [facility] ([id number]) [address], [address] [place] [address] Glucose [Mass/Vol] 157 mg/dL High 65-99 [facility] Comment on above: Performed By: #### C CARMEN CARMONA, , PINR #### [facility] ([id number]) [address], [address] [place] [address] Potassium [Moles/Vol] 4.3 mmol/L Normal 3.5-5.0 [facility] Comment on above: Performed By: #### C CARMEN CARMONA, , PINR #### [facility] ([id number]) [address], [address] [place] [address] Protein [Mass/Vol] 5.0 g/dL Low 6.0-8.0 [facility] Comment on above: Performed By: #### C CARMEN CARMONA, 05172-0, PINR #### [facility] ([id number]) [address], [address] [place] [address] Sodium [Moles/Vol] 142 mmol/L Normal 134-146 [facility] Comment on above: Performed By: #### C CARMEN CARMONA, , PINR #### [facility] ([id number]) [address], [address] [place] [address] Urea nitrogen [Mass/Vol] 24 mg/dL High 5-23 [facility] Comment on above: Performed By: #### C CARMEN CARMONA, , PINR #### [facility] ([id number]) [address], [address] [place] [address] Comprehensive metabolic pane roberto 12-28-2023 ALT No additional P-5'-P [Catalytic activity/Vol] 68 U/L High 0 - 40 U/L [facility] eGFR (CKD-EPI)non-race dependent - PINF [facility] Glucose Glucometer (BldC) [M ass/Vol]on 12-28-2023 Glucose [Mass/Vol] 135 mg/dL High 65 - 99 mg/dL [facility] Glucose [Mass/Vol] 135 mg/dL High 65-99 [facility] Glucose [Mass/Vol] 115 mg/dL High 65 - 99 mg/dL [facility] Glucose [Mass/Vol] 115 mg/dL High 65-99 [facility] Glucose [Mass/Vol] 77 mg/dL 65 - 99 mg/dL [facility] Glucose [Mass/Vol] 77 mg/dL Normal 65-99 [facility] Glucose [Mass/Vol] 167 mg/dL High 65 - 99 mg/dL [facility] Glucose [Mass/Vol] 167 mg/dL High 65-99 [facility] Interpretation and review of laboratory results Abnormal [facility] Interpretation and review of laboratory results Abnormal [facility] Laboratory - Chemistry and C hemistry - challengeon 12-28-2023 Magnesium [Mass/Vol] 1.6 mg/dL Low 1.8-2.6 [facility] Comment on above: Performed By: #### Aquiles CARMONA CMP, , PINR #### [facility] ([id number]) [address], [address] [place] [address] Lactate (P ge) [Moles/Vol]o n 12-28-2023 LACTATE W/REFLEX 1.5 mmol/L Normal 0.4-2.0 [facility] Comment on above: Result Comment: Result did not trigger repeat Lactate, re-order if needed. Performed By: #### Aquiles CARMONA CMP, , PINR #### [facility] ([id number]) [address], [address] [place] [address] [facility] Lactate w/ Reflexon 12-28-19 24 Lactate (P ge) [Moles/Vol] 1.5 mmol/L 0.4 - 2.0 mmol/L [facility] No Panel Informationon 12-28 Interpretation and review of laboratory results Abnormal [facility] PROTIME AND INRon 12-28-2023 INR Coag (PPP) [Relative time] 1.9 {INR} High 0.8-1.1 [facility] Comment on above: Performed By: #### Aquiles CARMONA CMP, , PINR #### [facility] ([id number]) [address], [address] [place] [address] PT Coag (PPP) [Time] 21.4 s High 9.8-13.2 [facility] Comment on above: Performed By: #### Aquiles CARMONA CMP, , PINR #### [facility] ([id number]) [address], [address] [place] [address] CBC AND AUTO DIFFon 12-27-19 24 ABSOLUTE BASOPHIL 0.1 X10E9/L Normal 0.0-0.2 [facility] Comment on above: Performed By: #### C CARMEN CARMONA, , PINR #### [facility] ([id number]) [address], [address] [place] [address] ABSOLUTE NEUTROPHIL 8.2 X10E9/L High 1.5-6.6 [facility] Comment on above: Performed By: #### C CARMEN CARMONA, , PINR #### [facility] ([id number]) [address], [address] [place] [address] Basophils/100 WBC (Bld) 0.8 % Normal [facility] Comment on above: Performed By: #### C CARMEN CARMONA, , PINR #### [facility] ([id number]) [address], [address] [place] [address] Eosinophils (Bld) [#/Vol] 0.4 10*3/uL Normal 0.0-0.4 [facility] Comment on above: Performed By: #### Aquiles CARMONA [facility], , PINR #### [facility] ([id number]) [address], [address] [place] [address] Eosinophils/100 WBC (Bld) 3.5 % Normal [facility] Comment on above: Performed By: #### Aquiles CARMONA CMP, , PINR #### [facility] ([id number]) [address], [address] [place] [address] Erythrocyte distribution width (RBC) [Ratio] 15.1 % High 11.5-15.0 [facility] Comment on above: Performed By: #### C MATHEW CMP, , PINR #### [facility] ([id number]) [address], [address] [place] [address] Hematocrit (Bld) [Volume fraction] 39.9 % Normal 39-49 [facility] Comment on above: Performed By: #### C CARMEN CARMONA, , PINR #### [facility] ([id number]) [address], [address] [place] [address] Hemoglobin (Bld) [Mass/Vol] 13.5 g/dL Normal 13.0-17.0 [facility] Comment on above: Performed By: #### C MATHEW CMP, , PINR #### [facility] ([id number]) [address], [facility] [address] [place] [address] Lymphocytes (Bld) [#/Vol] 0.9 10*3/uL Low 1.0-3.5 [facility] Comment on above: Performed By: #### Aquiles CARMONA CMP, , PINR #### [facility] ([id number]) [address], [address] [place] [address] Lymphocytes/100 WBC (Bld) 8.2 % Normal [facility] Comment on above: Performed By: #### Aquiles CARMONA CMP, , PINR #### [facility] ([id number]) [address], [address] [place] [address] MCH (RBC) [Entitic mass] 31.1 pg Normal 27-34 [facility] Comment on above: Performed By: #### C MATHEW CMP, , PINR #### [facility] ([id number]) [address], [address] [place] [address] MCHC (RBC) [Mass/Vol] 33.9 g/dL Normal 32-36 [facility] Comment on above: Performed By: #### Aquiles BCA CMP, , PINR #### [facility] ([id number]) [address], [address] [place] [address] MCV (RBC) [Entitic vol] 92 fL Normal 80-100 [facility] Comment on above: Performed By: #### C BCA, CMP, , PINR #### [facility] ([id number]) [address], [address] [place] [address] Monocytes (Bld) [#/Vol] 1.1 10*3/uL High 0-0.9 [facility] Comment on above: Performed By: #### C BCA, CMP, , PINR #### [facility] ([id number]) [address], [address] [place] [address] Monocytes/100 WBC (Bld) 10.5 % Normal [facility] Comment on above: Performed By: #### C BCA, CMP, , PINR #### [facility] ([id number]) [address], [address] [place] [address] Neutrophils/100 WBC (Bld) 77.0 % Normal [facility] Comment on above: Performed By: #### Aquiles BCA, CMP, , PINR #### [facility] ([id number]) [address], [address] [place] [address] Platelet mean volume (Bld) [Entitic vol] 8.5 fL Normal 7-12 [facility] Comment on above: Performed By: #### Aquiles BCA, CMP, , PINR #### [facility] ([id number]) [address], [address] [place] [address] Platelets (Bld) [#/Vol] 172 10*3/uL Normal 150-450 [facility] Comment on above: Performed By: #### C BCA, CMP, , PINR #### [facility] ([id number]) [address], [address] [place] [address] RBC COUNT 4.35 X10E12/L Normal 4.10-5.70 [facility] Comment on above: Performed By: #### C MATHEW, CMP, 19457-5, PINR #### [facility] ([id number]) [address], [address] [place] [address] WBC (Bld) [#/Vol] 10.6 10*3/uL Normal 4.0-11.0 [facility] Comment on above: Performed By: #### C BCA, CMP, 07820-5, PINR #### [facility] ([id number]) [address] [place] [address] CBC auto differentialon Basophils (Bld) [#/Vol] 0.1 10*3/uL [facility] Basophils/100 WBC (Bld) 0.8 % [facility] Eosinophils (Bld) [#/Vol] 0.4 10*3/uL [facility] Eosinophils/100 WBC (Bld) 3.5 % [facility] Erythrocyte distribution width (RBC) [Ratio] 15.1 % High 11.5 - 15.0 % [facility] Hematocrit (Bld) [Volume fraction] 39.9 % 39 - 49 % [facility] Hemoglobin (Bld) [Mass/Vol] 13.5 g/dL 13.0 - 17.0 g/dL [facility] Lymphocytes (Bld) [#/Vol] 0.9 10*3/uL Low [facility] Lymphocytes/100 WBC (Bld) 8.2 % [facility] MCH (RBC) [Entitic mass] 31.1 pg 27 - 34 pg [facility] MCHC (RBC) [Mass/Vol] 33.9 g/dL 32 - 36 g/dL [facility] MCV (RBC) [Entitic vol] 92 fL 80 - 100 fL [facility] Monocytes (Bld) [#/Vol] 1.1 10*3/uL High [facility] Monocytes/100 WBC (Bld) 10.5 % [facility] Neutrophils (Bld) [#/Vol] 8.2 10*3/uL High [facility] Neutrophils/100 WBC (Bld) 77.0 % [facility] Platelet mean volume (Bld) [Entitic vol] 8.5 fL 7 - 12 fL [facility] Platelets (Bld) [#/Vol] 172 10*3/uL [facility] RBC (Bld) [#/Vol] 4.35 10*6/uL [facility] WBC corrected for nucl RBC Auto (Bld) [#/Vol] 10.6 [facility] COMPREHENSIVE METABOLIC PANE Roberto 12-27-2023 Albumin [Mass/Vol] 2.1 g/dL Low 3.2-5.3 [facility] Comment on above: Performed By: #### C BCA, CMP, , PINR #### [facility] ([id number]) [address], [address] [place] [address] ALP [Catalytic activity/Vol] 184 U/L High 39-130 [facility] Comment on above: Performed By: #### C BCA, CMP, , PINR #### [facility] ([id number]) [address], [address] [place] [address] ALT [Catalytic activity/Vol] 56 U/L High 0-40 [facility] Comment on above: Performed By: #### C BCA, CMP, , PINR #### [facility] ([id number]) [address], [address] [place] [address] Anion gap [Moles/Vol] 5 mmol/L Normal 5-15 [facility] Comment on above: Performed By: #### C BCA, CMP, , PINR #### [facility] [facility] ([id number]) [address], [address] [place] [address] AST [Catalytic activity/Vol] 28 U/L Normal 0-41 [facility] Comment on above: Performed By: #### C BCA, CMP, , PINR #### [facility] ([id number]) [address], [address] [place] [address] Bilirubin [Mass/Vol] 1.2 mg/dL Normal 0.3-1.2 [facility] Comment on above: Performed By: #### C BCA CMP, , PINR #### [facility] ([id number]) [address], [address] [place] [address] Calcium [Mass/Vol] 7.7 mg/dL Low 8.5-10.5 [facility] Comment on above: Performed By: #### C BCA, CMP, , PINR #### [facility] ([id number]) [address], [address] [place] [address] Chloride [Moles/Vol] 111 mmol/L High 98-109 [facility] Comment on above: Performed By: #### C BCA, CMP, , PINR #### [facility] ([id number]) [address], [address] [place] [address] CO2 [Moles/Vol] 25 mmol/L Normal 22-32 [facility] Comment on above: Performed By: #### C BCA, CMP, , PINR #### [facility] ([id number]) [address], [facility] [address] [place] [address] Creatinine [Mass/Vol] 0.94 mg/dL Normal 0.60-1.30 [facility] Comment on above: Result Comment: METH OD TRACEABLE TO IDMS STANDARD Performed By: #### C BCA, CMP, , PINR #### [facility] ([id number]) [address], [facility] [address] [place] [address] eGFR (CKD-EPI) NON-RACE DEPENDENT >90 Normal >59 [facility] Comment on above: Result Comment: Reported eGFR is based on the CKD-EPI 2020 equation that does not use a race coefficient. Performed By: #### C BCA, CMP, , PINR #### [facility] ([id number]) [address], [address] [place] [address] Glucose [Mass/Vol] 112 mg/dL High 65-99 [facility] Comment on above: Performed By: #### C BCA, CMP, 09539-3, PINR #### [facility] ([id number]) [address], [address] [place] [address] Potassium [Moles/Vol] 4.2 mmol/L Normal 3.5-5.0 [facility] Comment on above: Performed By: #### C BCA, CMP, , PINR #### [facility] ([id number]) [address], [address] [place] [address] Protein [Mass/Vol] 5.0 g/dL Low 6.0-8.0 [facility] Comment on above: Performed By: #### C BCA, CMP, , PINR #### [facility] ([id number]) [address], [address] [place] [address] Sodium [Moles/Vol] 141 mmol/L Normal 134-146 [facility] Comment on above: Performed By: #### C BCA, CMP, , PINR #### [facility] ([id number]) [address], [address] [place] [address] Urea nitrogen [Mass/Vol] 28 mg/dL High 5-23 [facility] Comment on above: Performed By: #### C BCA, CMP, , PINR #### [facility] ([id number]) [address], [address] [place] [address] Cardiac echo study Procedure Ordered By: Cullen Marques on 12-27-2023 Aortic root 3.60 cm [facility] Work Phone: AV mean gradient 4.00 mmHg [facility] Work Phone: AV peak gradient 7.84 mmHg [facility] Work Phone: AV peak amilcar 140.00 cm/s [facility] Work Phone: AV valve area 7.02 cm2 [facility] Work Phone: AV Velocity Ratio 0.65 [facility] Work Phone: AV VTI 23.60 cm [facility] Work Phone: E wave deceleration time 154.00 msec [facility] Work Phone: E/A ratio 2.77 [facility] Work Phone: Energy loss index 9.98 [facility] Work Phone: FS 25 % 28 - 44 % [facility] Work Phone: Interventricular Septum Diastolic Thickness by 2D 11 cm [facility] [employer] [facility] Work Phone: IVS 1.10 cm 0.6 - 1.1 cm [facility] Work Phone: LA size 4.90 cm [facility] Work Phone: LA volume 61.40 cm3 [facility] Work Phone: LA Volume Index 26.5 mL/m2 [facility] [employer] [facility] Work Phone: Left Ventricle Mass [id number] g [facility] [employer] [facility] Work Phone: LV ESV A2C 45.80 mL [facility] Work Phone: LV ESV A4C 74.30 mL [facility] Work Phone: LV RWT 2D 40.00 [facility] Work Phone: LVIDd 5.50 cm 7.16 - 9.95 cm [facility] [employer] [facility] Work Phone: LVIDs 4.10 cm 4.15 - 6.28 cm [facility] Work Phone: LVOT diameter 3.70 cm [facility] Work Phone: LVOT peak amilcar 0.79 m/s [facility] Work Phone: LVOT peak VTI 15.40 cm [facility] Work Phone: LVOT stroke volume 165.58 ml [facility] Work Phone: Mitral Valve Max Velocity 1.29 cm/s [facility] Work Phone: MV mean gradient 3.00 mmHg [facility] Work Phone: MV Peak A Amilcar 36.40 cm/s [facility] Work Phone: MV Peak E Amilcar 101.00 cm/s [facility] Work Phone: MV peak gradient 6.66 mmHg [facility] Work Phone: MV pressure 1/2 time 45.00 ms [facility] Work Phone: MV valve area by continuity eq 7.96 [facility] Work Phone: MV valve area p 1/2 method 4.89 cm2 [facility] Work Phone: MV VTI 20.80 cm [facility] Work Phone: PV peak gradient 5.57 mmHg [facility] Work Phone: PW 1.10 cm 0.6 - 1.1 cm [facility] Work Phone: RA area 20.3 cm2 [facility] Work Phone: RV diastolic dimension (basal) 41.0 mm [facility] Work Phone: TAPSE 1.93 cm [facility] Work Phone: Valve area - Index 3.0 [facility] Work Phone: ZLVIDD -4.28 [facility] Work Phone: ZLVIDS -1.73 [facility] Work Phone: [facility] Work Phone: Cardiac echo study Procedure on 12-27-2023 Radiology Study observation (narrative) [facility] XCELERA Comprehensive metabolic pane roberto 12-27-2023 ALT No additional P-5'-P [Catalytic activity/Vol] 56 U/L High 0 - 40 U/L [facility] eGFR (CKD-EPI)non-race dependent - PINF [facility] Glucose Glucometer (BldC) [M ass/Vol]on 12-27-2023 Glucose [Mass/Vol] 120 mg/dL High 65 - 99 mg/dL [facility] Glucose [Mass/Vol] 120 mg/dL High 65-99 [facility] Glucose [Mass/Vol] 107 mg/dL High 65 - 99 mg/dL [facility] Glucose [Mass/Vol] 107 mg/dL High 65-99 [facility] Glucose [Mass/Vol] 99 mg/dL 65 - 99 mg/dL [facility] Glucose [Mass/Vol] 99 mg/dL Normal 65-99 [facility] Glucose [Mass/Vol] 130 mg/dL High 65 - 99 mg/dL [facility] Glucose [Mass/Vol] 130 mg/dL High 65-99 [facility] Interpretation and review of laboratory results Abnormal [facility] Interpretation and review of laboratory results Abnormal [facility] Interpretation and review of laboratory results Abnormal [facility] LEGIONELLA URINE AGon 2023 L. pneumophila Ag IA Ql (U) LEGIONELLA URINE AG Negative (qualifier value) NEGATIVE FOR L.PNEUMOPHILA SEROGROUP 1 ANTIGEN Normal [facility] Comment on above: Performed By: #### C BCA, CMP, 05640-3, PINR #### [facility] ([id number]) [address] [place] [address], [address] [place] [address] Laboratory - Chemistry and C hemistry - challengeon 12-27-2023 Magnesium [Mass/Vol] 1.5 mg/dL Low 1.8-2.6 [facility] Comment on above: Performed By: #### Aquiles CARMONA CMP, , PINR #### [facility] ([id number]) [address] [facility], [address] [place] [address] Legionella antigen, urineon 12-27-2023 L. pneumophila Ag IA Ql (U) Negative Negative^Nega tive [facility] No Panel Informationon 12-27 Interpretation and review of laboratory results Abnormal [facility] PROTIME AND INRon 12-27-2023 INR Coag (PPP) [Relative time] 1.6 {INR} High 0.8-1.1 [facility] Comment on above: Performed By: #### Aquiles CARMONA CMP, , PINR #### [facility] ([id number]) [address] [facility], [address] [place] [address] PT Coag (PPP) [Time] 18.7 s High 9.8-13.2 [facility] Comment on above: Performed By: #### Aquiles CARMONA CMP, , PINR #### [facility] ([id number]) [address] [facility], [address] [place] [address] Protime & INRon 12-27-2023 INR Coag (PPP) [Relative time] 1.6 {INR} High [facility] PT Coag (PPP) [Time] 18.7 s High [facility] S PNEUMONIAE AG Uon 12-27-19 S. pneumoniae Ag Ql (U) Negative Normal NEG [facility] Comment on above: Performed By: #### Aquiles CARMONA CMP, , PINR #### [facility] ([id number]) [address], [address] [place] [address] S Pneumoniae AG, urineon S. pneumoniae Ag Ql (U) Negative Negative^Nega tive [facility] Vancomycin trough [Mass/Vol] on 12-27-2023 Interpretation and review of laboratory results Abnormal [facility] VANCOMYCIN TROUGH 23.6 ug/mL High 5.0-20.0 [facility] Comment on above: Performed By: #### Aquiles CARMONA CMP, , PINR #### [facility] ([id number]) [address], [address] [place] [address] [facility] Vancomycin, troughon 024 Vancomycin trough [Mass/Vol] 23.6 ug/mL High 5.0 - 20.0 ug/mL [facility] C-reactive proteinon 024 CRP [Mass/Vol] 14.2 mg/dL High 0.000 - 0.744 mg/dL [facility] CBC AND AUTO DIFFon 12-26-19 24 ABSOLUTE BASOPHIL 0.0 X10E9/L Normal 0.0-0.2 [facility] Comment on above: Performed By: #### Aquiles CARMONA CMP, , PINR #### [facility] ([id number]) [address] [facility], [address] [place] [address] ABSOLUTE NEUTROPHIL 7.1 X10E9/L High 1.5-6.6 [facility] Comment on above: Performed By: #### Aquiles CARMONA CMP, , PINR #### [facility] ([id number]) [address], [address] [place] [address] Basophils/100 WBC (Bld) 0.4 % Normal [facility] Comment on above: Performed By: #### Aquiles CARMONA CMP, , PINR #### [facility] ([id number]) [address], [address] [place] [address] Eosinophils (Bld) [#/Vol] 0.3 10*3/uL Normal 0.0-0.4 [facility] Comment on above: Performed By: #### Aquiles CARMONA CMP, , PINR #### [facility] ([id number]) [address], [address] [place] [address] Eosinophils/100 WBC (Bld) 3.3 % Normal [facility] Comment on above: Performed By: #### C BCA, CMP, , PINR #### [facility] ([id number]) [address], [address] [place] [address] Erythrocyte distribution width (RBC) [Ratio] 15.1 % High 11.5-15.0 [facility] Comment on above: Performed By: #### C MATHEW, [facility], , PINR #### [facility] ([id number]) [address], [address] [place] [address] Hematocrit (Bld) [Volume fraction] 41.1 % Normal 39-49 [facility] Comment on above: Performed By: #### C BCA, [facility], , PINR #### [facility] ([id number]) [address], [address] [place] [address] Hemoglobin (Bld) [Mass/Vol] 14.0 g/dL Normal 13.0-17.0 [facility] Comment on above: Performed By: #### C BCA, CMP, , PINR #### [facility] ([id number]) [address], [address] [place] [address] Lymphocytes (Bld) [#/Vol] 0.7 10*3/uL Low 1.0-3.5 [facility] Comment on above: Performed By: #### C BCA, CMP, , PINR #### [facility] ([id number]) [address], [address] [place] [address] Lymphocytes/100 WBC (Bld) 7.6 % Normal [facility] Comment on above: Performed By: #### C BCA, CMP, , PINR #### [facility] ([id number]) [address], [address] [place] [address] MCH (RBC) [Entitic mass] 31.1 pg Normal 27-34 [facility] Comment on above: Performed By: #### C BCA, CMP, , PINR #### [facility] ([id number]) [address], [address] [place] [address] MCHC (RBC) [Mass/Vol] 34.2 g/dL Normal 32-36 [facility] Comment on above: Performed By: #### C BCA, CMP, , PINR #### [facility] ([id number]) [address], [address] [place] [address] MCV (RBC) [Entitic vol] 91 fL Normal 80-100 [facility] Comment on above: Performed By: #### Aquiles BCA, CMP, , PINR #### [facility] ([id number]) [address], [address] [place] [address] Monocytes (Bld) [#/Vol] 1.1 10*3/uL High 0-0.9 [facility] Comment on above: Performed By: #### C BCA, CMP, , PINR #### [facility] ([id number]) [address], [address] [place] [address] Monocytes/100 WBC (Bld) 11.7 % Normal [facility] Comment on above: Performed By: #### C BCA, CMP, , PINR #### [facility] ([id number]) [address], [address] [place] [address] Neutrophils/100 WBC (Bld) 77.0 % Normal [facility] Comment on above: Performed By: #### C BCA, CMP, , PINR #### [facility] ([id number]) [address], [address] [place] [address] Platelet mean volume (Bld) [Entitic vol] 8.5 fL Normal 7-12 [facility] Comment on above: Performed By: #### Aquiles CARMONA CMP, , PINR #### [facility] ([id number]) [address], [address] [address] Platelets (Bld) [#/Vol] 139 10*3/uL Low 150-450 [facility] Comment on above: Performed By: #### Aquiles CARMONA CMP, , PINR #### [facility] ([id number]) [address] [address] RBC COUNT 4.52 X10E12/L Normal 4.10-5.[address] [facility] Comment on above: Performed By: #### Aquiles CARMONA CMP, , PINR #### [facility] ([id number]) [address], [address] [address] WBC (Bld) [#/Vol] 9.3 10*3/uL Normal 4.0-11.0 [facility] Comment on above: Performed By: #### Aquiles CARMONA CMP, , PINR #### [facility] ([id number]) [address] [address] CBC auto differentialon Basophils (Bld) [#/Vol] 0.0 10*3/uL [facility] Neutrophils (Bld) [#/Vol] 7.1 10*3/uL High [facility] RBC (Bld) [#/Vol] 4.52 10*6/uL [facility] WBC corrected for nucl RBC Auto (Bld) [#/Vol] 9.3 [facility] COMPREHENSIVE METABOLIC PANE Roberto 12-26-2023 Albumin [Mass/Vol] 2.3 g/dL Low 3.2-5.3 [facility] Comment on above: Performed By: #### Aquiles CARMONA CMP, , PINR #### [facility] ([id number]) [address], [address] [place] [address] ALP [Catalytic activity/Vol] 208 U/L High 39-130 [facility] Comment on above: Performed By: #### C BCA, CMP, , PINR #### [facility] ([id number]) [address], [address] [place] [address] ALT [Catalytic activity/Vol] 73 U/L High 0-40 [facility] Comment on above: Performed By: #### C BCA, CMP, , PINR #### [facility] ([id number]) [address], [address] [place] [address] Anion gap [Moles/Vol] 4 mmol/L Low 5-15 [facility] Comment on above: Performed By: #### C BCA, CMP, , PINR #### [facility] ([id number]) [address], [address] [place] [address] AST [Catalytic activity/Vol] 36 U/L Normal 0-41 [facility] Comment on above: Performed By: #### C BCA, CMP, , PINR #### [facility] ([id number]) [address], [address] [place] [address] Bilirubin [Mass/Vol] 1.2 mg/dL Normal 0.3-1.2 [facility] Comment on above: Performed By: #### C BCA, CMP, , PINR #### [facility] ([id number]) [address], [address] [place] [address] Calcium [Mass/Vol] 8.0 mg/dL Low 8.5-10.5 [facility] Comment on above: Performed By: #### C BCA, CMP, , PINR #### [facility] ([id number]) [address], [address] [place] [address] Chloride [Moles/Vol] 110 mmol/L High 98-109 [facility] Comment on above: Performed By: #### C BCA CMP, , PINR #### [facility] ([id number]) [address], [address] [place] [address] CO2 [Moles/Vol] 24 mmol/L Normal 22-32 [facility] Comment on above: Performed By: #### C BCA, CMP, , PINR #### [facility] ([id number]) [address], [address] [place] [address] Creatinine [Mass/Vol] 0.81 mg/dL Normal 0.60-1.30 [facility] Comment on above: Result Comment: METH OD TRACEABLE TO IDMS STANDARD Performed By: #### C MATHEW CMP, , PINR #### [facility] ([id number]) [address], [address] [place] [address] eGFR (CKD-EPI) NON-RACE DEPENDENT >90 Normal >59 [facility] Comment on above: Result Comment: Reported eGFR is based on the CKD-EPI 2020 equation that does not use a race coefficient. Performed By: #### C BCA CMP, , PINR #### [facility] ([id number]) [address], [address] [place] [address] Glucose [Mass/Vol] 139 mg/dL High 65-99 [facility] Comment on above: Performed By: #### C BCA, CMP, , PINR #### [facility] ([id number]) [address], [address] [place] [address] Potassium [Moles/Vol] 5.2 mmol/L High 3.5-5.0 [facility] Comment on above: Performed By: #### C BCA, CMP, , PINR #### [facility] ([id number]) [address], [address] [place] [address] Protein [Mass/Vol] 5.0 g/dL Low 6.0-8.0 [facility] Comment on above: Performed By: #### C BCA, CMP, , PINR #### [facility] ([id number]) [address], [address] [place] [address] Sodium [Moles/Vol] 138 mmol/L Normal 134-146 [facility] Comment on above: Performed By: #### C BCA, CMP, , PINR #### [facility] ([id number]) [address], [address] [place] [address] Urea nitrogen [Mass/Vol] 36 mg/dL High 5-23 [facility] Comment on above: Performed By: #### C BCA, CMP, , PINR #### [facility] ([id number]) [address], [address] [place] [address] CRP [Mass/Vol]on 12-26-2023 C REACTIVE PROTEIN 14.2 mg/dL High 0.000-0.744 [facility] Comment on above: Performed By: #### C BCA, CMP, , PINR #### [facility] ([id number]) [address], [facility] [address] [place] [address] Comprehensive metabolic pane roberto 12-26-2023 ALT No additional P-5'-P [Catalytic activity/Vol] 73 U/L High 0 - 40 U/L [facility] eGFR (CKD-EPI)non-race dependent - [facility] ESR Photometric method (Bld) [Velocity]on 12-26-2023 ESR, ERYTHROCYTE SEDIMENTATION RATE 37 mm/h High 0-20 [facility] Comment on above: Performed By: #### 8 2477-1, 50254-6, 1987- #### [facility] ([id number]) [address], [address] [place] [address] Interpretation and review of laboratory results Abnormal [facility] Erythrocyte Sedimentation Ra te (ESR)on 12-26-2023 ESR Photometric method (Bld) [Velocity] 37 mm/h High 0 - 20 mm/h [facility] Glucose Glucometer (BldC) [M ass/Vol]on 12-26-2023 Glucose [Mass/Vol] 103 mg/dL High 65 - 99 mg/dL [facility] Glucose [Mass/Vol] 103 mg/dL High 65-99 [facility] Glucose [Mass/Vol] 146 mg/dL High 65 - 99 mg/dL [facility] Glucose [Mass/Vol] 146 mg/dL High 65-99 [facility] Glucose [Mass/Vol] 222 mg/dL High 65 - 99 mg/dL [facility] Glucose [Mass/Vol] 222 mg/dL High 65-99 [facility] Glucose [Mass/Vol] 201 mg/dL High 65 - 99 mg/dL [facility] Glucose [Mass/Vol] 201 mg/dL High 65-99 [facility] Interpretation and review of laboratory results Abnormal [facility] Interpretation and review of laboratory results Abnormal [facility] Interpretation and review of laboratory results Abnormal [facility] HGB A1C (GLYCO-HGB)on 2023 Glucose [Mass/Vol] 163 mg/dL Normal [facility] Comment on above: Performed By: #### C BCA, [facility], [address]-8, PINR #### [facility] ([id number]) [address], [address] [place] [address] HbA1c (Bld) [Mass fraction] 7.3 % High 4.4-5.6 [facility] Comment on above: Result Comment: NOTE ADA Guidelines Result HgbA1c Normal : less than 5.7 % Prediabetes : 5.7 % to 6.4 % Diabetes : > 6.4 % Use with caution in patients with abnormal hemoglobin variants as the half-life of red blood cells and in vivo glycation rates are affected. Performed By: #### C CARMEN CARMONA, 43781-0, PINR #### [facility] ([id number]) [address] [facility], [address] [place] [address] Hemoglobin A1con 12-26-2023 Average glucose Estimated from glycated hemoglobin (Bld) [Mass/Vol] 163 mg/dL [facility] Laboratory - Chemistry and C hemistry - challengeon 12-26-2023 Magnesium [Mass/Vol] 1.5 mg/dL Low 1.8-2.6 [facility] Comment on above: Performed By: #### C CARMEN CARMONA, , PINR #### [facility] ([id number]) [address] [facility], [address] [place] [address] Natriuretic peptide B [Mass/ Vol]on 12-26-2023 Natriuretic peptide B (Bld) [Mass/Vol] 373 pg/mL High <100.0 [facility] Comment on above: Performed By: #### 8 2477-1, 39978-5, 1988-03 #### [facility] ([id number]) [address] [facility], [address] [place] [address] No Panel Informationon 12-26 Interpretation and review of laboratory results Abnormal [facility] Interpretation and review of laboratory results Abnormal [facility] PROTIME AND INRon 12-26-2023 INR Coag (PPP) [Relative time] 2.0 {INR} High 0.8-1.1 [facility] Comment on above: Performed By: #### P INR #### [facility] ([id number]) [address] [facility], [address] [place] [address] INR Coag (PPP) [Relative time] 2.0 {INR} High 0.8-1.1 [facility] Comment on above: Performed By: #### C CARMEN CARMONA, 66750-2, PINR #### [facility] ([id number]) [address], [address] [place] [address] PT Coag (PPP) [Time] 23.2 s High 9.8-13.2 [facility] Comment on above: Performed By: #### P INR #### [facility] ([id number]) [address], [address] [place] [address] PT Coag (PPP) [Time] 22.2 s High 9.8-13.2 [facility] Comment on above: Performed By: #### C BCA, CMP, 28927-7, PINR #### [facility] ([id number]) [address], [address] [place] [address] Protime & INRon 12-26-2023 Interpretation and review of laboratory results Abnormal [facility] CBC AND AUTO DIFFon 12-25-19 24 ABSOLUTE BASOPHIL 0.0 X10E9/L Normal 0.0-0.2 [facility] Comment on above: Performed By: #### C BCA, CMP, 3040-3, 53149-9, 07205-3, PINR, 92761-0, 01533-4 #### [facility] ([id number]) [address] [place] [address] [place] [address] ABSOLUTE NEUTROPHIL 9.4 X10E9/L High 1.5-6.6 [facility] Comment on above: Performed By: #### C BCA, CMP, 3040-3, 80622-0, 05440-1, PINR, 94039-8, 42935-5 #### [facility] ([id number]) [address] [place] [address] [place] [address] Basophils/100 WBC (Bld) 0.3 % Normal [facility] Comment on above: Performed By: #### C BCA, CMP, 3040-3, 42819-1, 09633-8, PINR, 27229-7, 24749-0 #### [facility] ([id number]) [address] [place] [address] 25405 Eosinophils (Bld) [#/Vol] 0.3 10*3/uL Normal 0.0-0.4 [facility] Comment on above: Performed By: #### C BCA, CMP, 3040-3, 42853-2, 03298-3, PINR, 42802-3, 74227-8 #### [facility] ([id number]) [address] [place] [address] 52694 Eosinophils/100 WBC (Bld) 2.3 % Normal [facility] Comment on above: Performed By: #### C BCA, CMP, 3040-3, 64315-7, 64710-1, PINR, 16171-1, 12768-9 #### [facility] ([id number]) [address] [place] [address] 38659 Erythrocyte distribution width (RBC) [Ratio] 15.2 % High 11.5-15.0 [facility] Comment on above: Performed By: #### C BCA, CMP, 3040-3, 06203-1, 08425-2, PINR, 88402-8, 45648-1 #### [facility] ([id number]) [address] [place] [address] 20152 Hematocrit (Bld) [Volume fraction] 43.1 % Normal 39-49 [facility] Comment on above: Performed By: #### C BCA, CMP, 3040-3, 68736-4, 58879-5, PINR, 14795-9, 25717-6 #### [facility] ([id number]) [address] [place] [address] 22917 Hemoglobin (Bld) [Mass/Vol] 14.3 g/dL Normal 13.0-17.0 [facility] Comment on above: Performed By: #### C BCA, CMP, 3040-3, 73222-6, 64172-8, PINR, 38974-9, 25760-9 #### [facility] ([id number]) [address] [place] [address] 17661 Lymphocytes (Bld) [#/Vol] 0.7 10*3/uL Low 1.0-3.5 [facility] Comment on above: Performed By: #### C BCA, CMP, 3040-3, 22973-5, 07089-7, PINR, 96340-5, 19642-0 #### [facility] ([id number]) [address] [place] [address] 57556 Lymphocytes/100 WBC (Bld) 5.7 % Normal [facility] Comment on above: Performed By: #### C BCA, CMP, 3040-3, 16101-5, 40584-7, PINR, 49830-0, 50449-8 #### [facility] ([id number]) [address] [place] [address] 82109 MCH (RBC) [Entitic mass] 30.6 pg Normal 27-34 [facility] Comment on above: Performed By: #### C BCA, CMP, 3040-3, 39785-4, 67192-6, PINR, 98021-6, 58981-0 #### [facility] ([id number]) [address] [place] [address] 15528 MCHC (RBC) [Mass/Vol] 33.2 g/dL Normal 32-36 [facility] Comment on above: Performed By: #### C BCA, CMP, 3040-3, 44697-1, 12712-4, PINR, 09463-2, 44219-3 #### [facility] ([id number]) [address] [place] [address] 83532 MCV (RBC) [Entitic vol] 92 fL Normal 80-100 [facility] Comment on above: Performed By: #### C BCA, CMP, 3040-3, 74217-6, 54370-9, PINR, 19532-4, 37563-6 #### [facility] ([id number]) [address] [place] [address] 81207 Monocytes (Bld) [#/Vol] 1.3 10*3/uL High 0-0.9 [facility] Comment on above: Performed By: #### C BCA, CMP, 3040-3, 92554-5, 14804-1, PINR, 39927-2, 29321-0 #### [facility] ([id number]) [address] [place] [address] 67765 Monocytes/100 WBC (Bld) 11.4 % Normal [facility] Comment on above: Performed By: #### C BCA, CMP, 3040-3, 44181-2, 07562-1, PINR, 57971-8, 52397-5 #### [facility] ([id number]) [address] [place] [address] 15879 Neutrophils/100 WBC (Bld) 80.3 % Normal [facility] Comment on above: Performed By: #### C BCA, CMP, 3040-3, 07254-4, 35886-2, PINR, 65860-1, 70266-2 #### [facility] ([id number]) [address] [place] [address] 61583 Platelet mean volume (Bld) [Entitic vol] 8.4 fL Normal 7-12 [facility] Comment on above: Performed By: #### C BCA, CMP, 3040-3, 15510-0, 98523-5, PINR, 73529-9, 34238-3 #### [facility] ([id number]) [address] [place] [address] 22768 Platelets (Bld) [#/Vol] 164 10*3/uL Normal 150-450 [facility] Comment on above: Performed By: #### C BCA, CMP, 3040-3, 80704-6, 02314-6, PINR, 76154-1, 62734-4 #### [facility] ([id number]) [address] [place] [address] 33228 RBC COUNT 4.68 X10E12/L Normal 4.10-5.70 [facility] Comment on above: Performed By: #### C BCA, CMP, 3040-3, 81326-2, 75529-5, PINR, 01870-5, 81811-0 #### [facility] ([id number]) [address] [place] [address] 39795 WBC (Bld) [#/Vol] 11.7 10*3/uL High 4.0-11.0 [facility] Comment on above: Performed By: #### C BCA, CMP, 3040-3, 89560-1, 57204-4, PINR, 66424-5, 83155-7 #### [facility] ([id number]) [address] [place] [address] 17864 COMPREHENSIVE METABOLIC PANE Roberto 12-25-2023 Albumin [Mass/Vol] 2.2 g/dL Low 3.2-5.3 [facility] Comment on above: Performed By: #### C BCA, CMP, 3040-3, 83570-3, 15637-5, PINR, 18451-6, 09972-8 #### [facility] ([id number]) [address] [place] [address] 23822 ALP [Catalytic activity/Vol] 243 U/L High 39-130 [facility] Comment on above: Performed By: #### C BCA, CMP, 3040-3, 45288-7, 33285-9, PINR, 52040-6, 50266-8 #### [facility] ([id number]) [address] [place] [address] 17548 ALT [Catalytic activity/Vol] 101 U/L High 0-40 [facility] Comment on above: Performed By: #### C BCA, CMP, 3040-3, 00815-0, 41949-6, PINR, 21650-3, 65534-4 #### [facility] ([id number]) [address] [place] [address] 99691 Anion gap [Moles/Vol] 7 mmol/L Normal 5-15 [facility] Comment on above: Performed By: #### C BCA, CMP, 3040-3, 63689-6, 08981-6, PINR, 39323-1, 53297-7 #### [facility] ([id number]) [address] [place] [address] 98957 AST [Catalytic activity/Vol] 69 U/L High 0-41 [facility] Comment on above: Performed By: #### C BCA, CMP, 3040-3, 57692-3, 31716-0, PINR, 73006-0, 29288-1 #### [facility] ([id number]) [address] [place] [address] 81866 Bilirubin [Mass/Vol] 1.3 mg/dL High 0.3-1.2 [facility] Comment on above: Performed By: #### C BCA, CMP, 3040-3, 22871-3, 89716-6, PINR, 33936-8, 00406-7 #### [facility] ([id number]) [address] [place] [address] 78230 Calcium [Mass/Vol] 8.1 mg/dL Low 8.5-10.5 [facility] Comment on above: Performed By: #### C BCA, CMP, 3040-3, 75386-0, 57862-9, PINR, 36716-5, 12980-2 #### [facility] ([id number]) [address] [place] [address] 72276 Chloride [Moles/Vol] 111 mmol/L High 98-109 [facility] Comment on above: Performed By: #### C BCA, CMP, 3040-3, 00119-8, 09263-3, PINR, 50155-6, 87100-8 #### [facility] ([id number]) [address] [place] [address] 60582 CO2 [Moles/Vol] 18 mmol/L Low 22-32 [facility] Comment on above: Performed By: #### C BCA, CMP, 3040-3, 82398-1, 54518-8, PINR, 40131-5, 11342-8 #### [facility] ([id number]) [address] [place] [address] 75298 Creatinine [Mass/Vol] 1.01 mg/dL Normal 0.70-1.20 [facility] Comment on above: Result Comment: METH OD TRACEABLE TO IDMS STANDARD Performed By: #### C BCA, CMP, 3040-3, 77101-3, 61571-4, PINR, 62615-4, 26349-0 #### [facility] ([id number]) [address] [place] [address] 01354 GFR/1.73 sq M.predicted among non-blacks MDRD (S/P/Bld) [Vol rate/Area] 86 mL/min/{1.73_m2} Normal >59 [facility] Comment on above: Result Comment: Reported eGFR is based on the CKD-EPI 2020 equation that does not use a race coefficient. Performed By: #### C BCA, CMP, 3040-3, 43731-9, 45546-8, PINR, 29867-1, 63917-0 #### [facility] ([id number]) [address] [place] [address] 51502 Glucose [Mass/Vol] 146 mg/dL High 65-99 [facility] Comment on above: Performed By: #### C BCA, CMP, 3040-3, 29957-5, 02689-0, PINR, 10347-2, 01023-8 #### [facility] ([id number]) [address] [place] [address] 55211 Potassium [Moles/Vol] 4.6 mmol/L Normal 3.5-5.0 [facility] Comment on above: Performed By: #### C BCA, CMP, 3040-3, 15574-3, 66477-4, PINR, 67449-4, 70529-3 #### [facility] ([id number]) [address] [place] [address] 35568 Protein [Mass/Vol] 5.7 g/dL Low 6.0-8.0 [facility] Comment on above: Performed By: #### C BCA, CMP, 3040-3, 38398-7, 46690-2, PINR, 99720-4, 73627-5 #### [facility] ([id number]) [address] [place] [address] 57681 Sodium [Moles/Vol] 136 mmol/L Normal 134-146 [facility] Comment on above: Performed By: #### C BCA, CMP, 3040-3, 25810-5, 72953-2, PINR, 21401-8, 15100-9 #### [facility] ([id number]) [address] [place] [address] 31131 Urea nitrogen [Mass/Vol] 41 mg/dL High 5-23 [facility] Comment on above: Performed By: #### C BCA, CMP, 3040-3, 28699-2, 99573-8, PINR, 05014-6, 21863-0 #### [facility] ([id number]) [address] [place] [address] 07126 Glucose Glucometer (BldC) [M ass/Vol]on 12-25-2023 Glucose [Mass/Vol] 162 mg/dL High 65-99 [facility] MAGNESIUMon 12-25-2023 Magnesium [Mass/Vol] 1.6 mg/dL Low 1.8-2.6 [facility] Comment on above: Performed By: #### C BCA, CMP, 3040-3, 48815-9, 92995-7, PINR, 31073-8, 74680-5 #### [facility] ([id number]) [address] [place] [address], [place] [address] PROTIME AND INRon 12-25-2023 INR Coag (PPP) [Relative time] 2.8 {INR} High 0.8-1.1 [facility] Comment on above: Performed By: #### C BCA, CMP, 3040-3, 46630-6, 27680-7, PINR, 26919-2, 87048-9 #### [facility] ([id number]) [address] [place] [address], [place] [address] PT Coag (PPP) [Time] 31.9 s High 9.8-13.2 [facility] Comment on above: Result Comment: NEW REFERENCE RANGE Performed By: #### C BCA, CMP, 3040-3, 57976-4, 72145-3, PINR, 55278-8, 99866-1 #### [facility] ([id number]) [address] [place] [address], [place] [address] CBC AND AUTO DIFFon 12-24-19 24 ABSOLUTE BASOPHIL 0.0 X10E9/L Normal 0.0-0.2 [facility] Comment on above: Performed By: #### C BCA, CMP, 3040-3, 00987-7, 91107-0, PINR, 74434-1, 20286-2 #### [facility] ([id number]) [address] [place] [address], [place] [address] ABSOLUTE NEUTROPHIL 10.0 X10E9/L High 1.5-6.6 [facility] Comment on above: Performed By: #### C BCA, CMP, 3040-3, 99246-6, 21816-9, PINR, 10445-8, 74638-7 #### [facility] ([id number]) [address] [place] [address] 60507 Basophils/100 WBC (Bld) 0.2 % Normal [facility] Comment on above: Performed By: #### C BCA, CMP, 3040-3, 26084-4, 94976-9, PINR, 94390-1, 13605-9 #### [facility] ([id number]) [address] [place] [address] 68716 Eosinophils (Bld) [#/Vol] 0.2 10*3/uL Normal 0.0-0.4 [facility] Comment on above: Performed By: #### C BCA, CMP, 3040-3, 71933-5, 12692-3, PINR, 32894-3, 97187-5 #### [facility] ([id number]) [address] [place] [address] 34097 Eosinophils/100 WBC (Bld) 1.6 % Normal [facility] Comment on above: Performed By: #### C BCA, CMP, 3040-3, 39649-6, 49690-5, PINR, 47519-3, 95714-0 #### [facility] ([id number]) [address] [place] [address] 25393 Erythrocyte distribution width (RBC) [Ratio] 15.3 % High 11.5-15.0 [facility] Comment on above: Performed By: #### C BCA, CMP, 3040-3, 84008-2, 80216-5, PINR, 43530-2, 05133-8 #### [facility] ([id number]) [address] [place] [address] 19073 Hematocrit (Bld) [Volume fraction] 46.7 % Normal 39-49 [facility] Comment on above: Performed By: #### C BCA, CMP, 3040-3, 14241-1, 83846-2, PINR, 16453-8, 45483-7 #### [facility] ([id number]) [address] [place] [address] 91198 Hemoglobin (Bld) [Mass/Vol] 15.9 g/dL Normal 13.0-17.0 [facility] Comment on above: Performed By: #### C BCA, CMP, 3040-3, 90263-6, 22535-3, PINR, 03023-1, 01011-0 #### [facility] ([id number]) [address] [place] [address] 75128 Lymphocytes (Bld) [#/Vol] 0.7 10*3/uL Low 1.0-3.5 [facility] Comment on above: Performed By: #### C BCA, CMP, 3040-3, 84567-0, 16010-6, PINR, 80313-6, 39093-3 #### [facility] ([id number]) [address] [place] [address] 80475 Lymphocytes/100 WBC (Bld) 5.6 % Normal [facility] Comment on above: Performed By: #### C BCA, CMP, 3040-3, 34646-5, 88122-4, PINR, 19180-8, 80701-1 #### [facility] ([id number]) [address] [place] [address] 32082 MCH (RBC) [Entitic mass] 31.2 pg Normal 27-34 [facility] Comment on above: Performed By: #### C BCA, CMP, 3040-3, 07894-4, 28868-2, PINR, 99910-7, 06108-1 #### [facility] ([id number]) [address] [place] [address] [place] [address] MCHC (RBC) [Mass/Vol] 34.1 g/dL Normal 32-36 [facility] Comment on above: Performed By: #### C BCA, CMP, 3040-3, 23520-0, 36305-4, PINR, 96593-6, 30710-0 #### [facility] ([id number]) [address] [place] [address] 71051 MCV (RBC) [Entitic vol] 92 fL Normal 80-100 [facility] Comment on above: Performed By: #### C BCA, CMP, 3040-3, 02500-9, 55725-3, PINR, 21454-3, 91957-0 #### [facility] ([id number]) [address] [place] [address] 05689 Monocytes (Bld) [#/Vol] 1.1 10*3/uL High 0-0.9 [facility] Comment on above: Performed By: #### C BCA, CMP, 3040-3, 65621-3, 09470-2, PINR, 91105-2, 16157-8 #### [facility] ([id number]) [address] [place] [address] 89915 Monocytes/100 WBC (Bld) 9.3 % Normal [facility] Comment on above: Performed By: #### C BCA, CMP, 3040-3, 61650-8, 38403-3, PINR, 93433-1, 69421-5 #### [facility] ([id number]) [address] [place] [address] 48698 Neutrophils/100 WBC (Bld) 83.3 % Normal [facility] Comment on above: Performed By: #### C BCA, CMP, 3040-3, 49136-0, 49362-7, PINR, 55957-5, 07131-9 #### [facility] ([id number]) [address] [place] [address] 37586 Platelet mean volume (Bld) [Entitic vol] 8.7 fL Normal 7-12 [facility] Comment on above: Performed By: #### C BCA, CMP, 3040-3, 66423-0, 33964-1, PINR, 67193-5, 29534-6 #### [facility] ([id number]) [address] [place] [address] 58952 Platelets (Bld) [#/Vol] 185 10*3/uL Normal 150-450 [facility] Comment on above: Performed By: #### C BCA, CMP, 3040-3, 91622-3, 82078-4, PINR, 10514-7, 89866-1 #### [facility] ([id number]) [address] [place] [address] 68977 RBC COUNT 5.09 X10E12/L Normal 4.10-5.70 [facility] Comment on above: Performed By: #### C BCA, CMP, 3040-3, 14671-1, 32354-7, PINR, 30608-4, 12958-6 #### [facility] ([id number]) [address] [place] [address] 33798 WBC (Bld) [#/Vol] 12.0 10*3/uL High 4.0-11.0 [facility] Comment on above: Performed By: #### C BCA, CMP, 3040-3, 69520-4, 63294-8, PINR, 90795-0, 02405-1 #### [facility] ([id number]) [address] [place] [address] 59458 COMPREHENSIVE METABOLIC PANE Roberto 12-24-2023 Albumin [Mass/Vol] 2.6 g/dL Low 3.2-5.3 [facility] Comment on above: Performed By: #### C BCA, CMP, 3040-3, 99951-9, 87813-0, PINR, 10414-1, 75184-7 #### [facility] ([id number]) [address] [place] [address] 43841 ALP [Catalytic activity/Vol] 127 U/L Normal 39-130 [facility] Comment on above: Performed By: #### C BCA, CMP, 3040-3, 38288-4, 55107-0, PINR, 43880-5, 10135-5 #### [facility] ([id number]) [address] [place] [address] 06716 ALT [Catalytic activity/Vol] 63 U/L High 0-40 [facility] Comment on above: Performed By: #### C BCA, CMP, 3040-3, 81058-4, 20913-8, PINR, 09437-6, 41714-1 #### [facility] ([id number]) [address] [place] [address] 31273 Anion gap [Moles/Vol] 5 mmol/L Normal 5-15 [facility] Comment on above: Performed By: #### C BCA, CMP, 3040-3, 68356-7, 42518-3, PINR, 84465-5, 78518-3 #### [facility] ([id number]) [address] [place] [address] 04889 AST [Catalytic activity/Vol] 46 U/L High 0-41 [facility] Comment on above: Performed By: #### C BCA, CMP, 3040-3, 05162-1, 38339-6, PINR, 77472-5, 06882-3 #### [facility] ([id number]) [address] [place] [address] 71272 Bilirubin [Mass/Vol] 1.3 mg/dL High 0.3-1.2 [facility] Comment on above: Performed By: #### C BCA, CMP, 3040-3, 43865-1, 81905-8, PINR, 70154-5, 73466-1 #### [facility] ([id number]) [address] [place] [address] 12551 Calcium [Mass/Vol] 8.8 mg/dL Normal 8.5-10.5 [facility] Comment on above: Performed By: #### C BCA, CMP, 3040-3, 72553-2, 10171-7, PINR, 66728-4, 37420-5 #### [facility] ([id number]) [address] [place] [address] 96185 Chloride [Moles/Vol] 110 mmol/L High 98-109 [facility] Comment on above: Performed By: #### C BCA, CMP, 3040-3, 18074-8, 86677-4, PINR, 34560-3, 67960-0 #### [facility] ([id number]) [address] [place] [address] 56662 CO2 [Moles/Vol] 21 mmol/L Low 22-32 [facility] Comment on above: Performed By: #### C BCA, CMP, 3040-3, 69921-0, 59795-8, PINR, 02114-8, 05865-9 #### [facility] ([id number]) [address] [place] [address] 02117 Creatinine [Mass/Vol] 1.16 mg/dL Normal 0.70-1.20 [facility] Comment on above: Result Comment: METH OD TRACEABLE TO IDMS STANDARD Performed By: #### C BCA, CMP, 3040-3, 23711-2, 56113-2, PINR, 80369-6, 07239-8 #### [facility] ([id number]) [address] [place] [address] 50404 GFR/1.73 sq M.predicted among non-blacks MDRD (S/P/Bld) [Vol rate/Area] 73 mL/min/{1.73_m2} Normal >59 [facility] Comment on above: Result Comment: Reported eGFR is based on the CKD-EPI 2020 equation that does not use a race coefficient. Performed By: #### C BCA, CMP, 3040-3, 78414-3, 68851-8, PINR, 91975-9, 10676-2 #### [facility] ([id number]) [address] [place] [address] 16392 Glucose [Mass/Vol] 142 mg/dL High 65-99 [facility] Comment on above: Performed By: #### C BCA, CMP, 3040-3, 50305-2, 81472-8, PINR, 12562-0, 99895-4 #### [facility] ([id number]) [address] [place] [address] 06327 Potassium [Moles/Vol] 4.4 mmol/L Normal 3.5-5.0 [facility] Comment on above: Performed By: #### C BCA, CMP, 3040-3, 26502-0, 18783-9, PINR, 12339-8, 47838-2 #### [facility] ([id number]) [address] [place] [address] 54569 Protein [Mass/Vol] 6.5 g/dL Normal 6.0-8.0 [facility] Comment on above: Performed By: #### C BCA, CMP, 3040-3, 77536-3, 46765-3, PINR, 81067-4, 80121-7 #### [facility] ([id number]) [address] [place] [address] 41056 Sodium [Moles/Vol] 136 mmol/L Normal 134-146 [facility] Comment on above: Performed By: #### C BCA, CMP, 3040-3, 44031-3, 04946-4, PINR, 79460-0, 28818-1 #### [facility] ([id number]) [address] [place] [address] 18687 Urea nitrogen [Mass/Vol] 52 mg/dL High 5-23 [facility] Comment on above: Performed By: #### C BCA, CMP, 3040-3, 65681-0, 62203-4, PINR, 76680-1, 07239-1 #### [facility] ([id number]) [address] [place] [address] 91961 Glucose Glucometer (BldC) [M ass/Vol]on 12-24-2023 Glucose [Mass/Vol] 224 mg/dL High 65-99 [facility] Glucose [Mass/Vol] 147 mg/dL High 65-99 [facility] Glucose [Mass/Vol] 180 mg/dL High 65-99 [facility] MAGNESIUMon 12-24-2023 Magnesium [Mass/Vol] 1.8 mg/dL Normal 1.8-2.6 [facility] Comment on above: Performed By: #### C MATHEW, CARMEN, 3040-3, 75516-5, 71543-6, PINR, 04497-0, 18457-0 #### [facility] ([id number]) [address] [place] [address] 78454 PROTIME AND INRon 12-24-2023 INR Coag (PPP) [Relative time] 4.5 {INR} Critically high 0.8-1.1 [facility] Comment on above: Performed By: #### C MATHEW, CMP, 3040-3, 07714-4, 12843-6, PINR, 65861-3, 16116-8 #### [facility] ([id number]) [address] [place] [address] 29442 PT Coag (PPP) [Time] 49.2 s High 9.8-13.2 [facility] Comment on above: Result Comment: NEW REFERENCE RANGE Performed By: #### C BCA, CMP, 3040-3, 29393-2, 62701-5, PINR, 23183-5, 93650-7 #### [facility] ([id number]) [address] [place] [address] 23041 BLOOD CULTUREon 12-23-2023 Bacteria identified Aer cx Nom (Bld) SPECIMEN NOTES LEFT HAND CULTURE RESULTS NO GROWTH 5 DAYS Normal [facility] Comment on above: Performed By: #### C BCA, CMP, 3040-3, 00753-4, 38253-9, PINR, 29388-3, 54806-8 #### [facility] ([id number]) [address] [place] [address] [place] [address] Bacteria identified Aer cx Nom (Bld) SPECIMEN NOTES RIGHT HAND CULTURE RESULTS NO GROWTH 5 DAYS Normal [facility] Comment on above: Performed By: #### C BCA, CMP, 3040-3, 83406-4, 20603-0, PINR, 03583-7, 92309-6 #### [facility] ([id number]) [address] [place] [address] 99357 CBC AND AUTO DIFFon 12-23-19 24 ABSOLUTE BASOPHIL 0.0 X10E9/L Normal 0.0-0.2 [facility] Comment on above: Performed By: #### C BCA, CMP, 3040-3, 52841-4, 05253-6, PINR, 51415-2, 34055-9 #### [facility] ([id number]) [address] [place] [address] 48619 ABSOLUTE NEUTROPHIL 10.9 X10E9/L High 1.5-6.6 [facility] Comment on above: Performed By: #### C BCA, CMP, 3040-3, 28897-7, 90022-7, PINR, 98881-6, 98406-2 #### [facility] ([id number]) [address] [place] [address] 60405 Basophils/100 WBC (Bld) 0.2 % Normal [facility] Comment on above: Performed By: #### C BCA, CMP, 3040-3, 48540-1, 95529-0, PINR, 22285-6, 90078-6 #### [facility] ([id number]) [address] [place] [address] 19209 Eosinophils (Bld) [#/Vol] 0.2 10*3/uL Normal 0.0-0.4 [facility] Comment on above: Performed By: #### C BCA, CMP, 3040-3, 16315-5, 70782-6, PINR, 21565-9, 93899-1 #### [facility] ([id number]) [address] [place] [address] 17299 Eosinophils/100 WBC (Bld) 1.8 % Normal [facility] Comment on above: Performed By: #### C BCA, CMP, 3040-3, 18551-3, 72484-6, PINR, 25073-4, 15279-0 #### [facility] ([id number]) [address] [place] [address] 65101 Erythrocyte distribution width (RBC) [Ratio] 15.4 % High 11.5-15.0 [facility] Comment on above: Performed By: #### C BCA, CMP, 3040-3, 65977-6, 28220-1, PINR, 62666-1, 35427-5 #### [facility] ([id number]) [address] [place] [address] 50207 Hematocrit (Bld) [Volume fraction] 50.1 % High 39-49 [facility] Comment on above: Performed By: #### C BCA, CMP, 3040-3, 06155-3, 33311-2, PINR, 49502-7, 03915-6 #### [facility] ([id number]) [address] [place] [address] 48928 Hemoglobin (Bld) [Mass/Vol] 16.8 g/dL Normal 13.0-17.0 [facility] Comment on above: Performed By: #### C BCA, CMP, 3040-3, 14042-9, 24481-6, PINR, 60096-7, 85430-1 #### [facility] ([id number]) [address] [place] [address] 28909 Lymphocytes (Bld) [#/Vol] 1.0 10*3/uL Normal 1.0-3.5 [facility] Comment on above: Performed By: #### C BCA, CMP, 3040-3, 55196-3, 00857-2, PINR, 13852-3, 92416-7 #### [facility] ([id number]) [address] [place] [address] 12235 Lymphocytes/100 WBC (Bld) 7.8 % Normal [facility] Comment on above: Performed By: #### C BCA, CMP, 3040-3, 96629-5, 14626-2, PINR, 04633-4, 81289-9 #### [facility] ([id number]) [address] [place] [address] 32140 MCH (RBC) [Entitic mass] 30.7 pg Normal 27-34 [facility] Comment on above: Performed By: #### C BCA, CMP, 3040-3, 40722-4, 58782-9, PINR, 76861-0, 65741-1 #### [facility] ([id number]) [address] [place] [address] 94802 MCHC (RBC) [Mass/Vol] 33.5 g/dL Normal 32-36 [facility] Comment on above: Performed By: #### C BCA, CMP, 3040-3, 35126-6, 45073-9, PINR, 33400-0, 99987-9 #### [facility] ([id number]) [address] [place] [address] 49915 MCV (RBC) [Entitic vol] 92 fL Normal 80-100 [facility] Comment on above: Performed By: #### C BCA, CMP, 3040-3, 38353-0, 24892-3, PINR, 05310-8, 29068-7 #### [facility] ([id number]) [address] [place] [address] 89761 Monocytes (Bld) [#/Vol] 1.0 10*3/uL High 0-0.9 [facility] Comment on above: Performed By: #### C BCA, CMP, 3040-3, 78309-6, 16834-0, PINR, 02590-4, 80816-6 #### [facility] ([id number]) [address] [place] [address] 62664 Monocytes/100 WBC (Bld) 7.5 % Normal [facility] Comment on above: Performed By: #### C BCA, CMP, 3040-3, 27794-4, 73998-9, PINR, 05068-7, 00032-7 #### [facility] ([id number]) [address] [place] [address] 74258 Neutrophils/100 WBC (Bld) 82.7 % Normal [facility] Comment on above: Performed By: #### C BCA, CMP, 3040-3, 17786-0, 22666-2, PINR, 91205-7, 40213-4 #### [facility] ([id number]) [address] [place] [address] 96812 Platelet mean volume (Bld) [Entitic vol] 8.7 fL Normal 7-12 [facility] Comment on above: Performed By: #### C BCA, CMP, 3040-3, 13769-3, 03220-2, PINR, 74090-3, 06962-2 #### [facility] ([id number]) [address] [place] [address] 59383 Platelets (Bld) [#/Vol] 241 10*3/uL Normal 150-450 [facility] Comment on above: Performed By: #### C BCA, CMP, 3040-3, 53718-6, 41268-0, PINR, 22867-4, 70404-4 #### [facility] ([id number]) [address] [place] [address] 42342 RBC COUNT 5.48 X10E12/L Normal 4.10-5.70 [facility] Comment on above: Performed By: #### C BCA, CMP, 3040-3, 16698-6, 32651-0, PINR, 07204-1, 13117-2 #### [facility] ([id number]) [address] [place] [address] 35091 WBC (Bld) [#/Vol] 13.2 10*3/uL High 4.0-11.0 [facility] Comment on above: Performed By: #### C BCA, CMP, 3040-3, 87839-0, 33924-5, PINR, 10916-3, 91811-8 #### [facility] ([id number]) [address] [place] [address] 58107 COMPREHENSIVE METABOLIC PANE Roberto 12-23-2023 Albumin [Mass/Vol] 3.0 g/dL Low 3.2-5.3 [facility] Comment on above: Performed By: #### C BCA, CMP, 3040-3, 87437-8, 57579-7, PINR, 38749-8, 59327-8 #### [facility] ([id number]) [address] [place] [address] 52945 ALP [Catalytic activity/Vol] 150 U/L High 39-130 [facility] Comment on above: Performed By: #### C BCA, CMP, 3040-3, 40429-7, 07964-3, PINR, 83214-0, 26930-6 #### [facility] ([id number]) [address] [place] [address] 84461 ALT [Catalytic activity/Vol] 72 U/L High 0-40 [facility] Comment on above: Performed By: #### C BCA, CMP, 3040-3, 50332-4, 13588-5, PINR, 68671-9, 48695-4 #### [facility] ([id number]) [address] [place] [address] 61984 Anion gap [Moles/Vol] 8 mmol/L Normal 5-15 [facility] Comment on above: Performed By: #### C BCA, CMP, 3040-3, 43233-6, 06843-1, PINR, 26195-4, 39065-1 #### [facility] ([id number]) [address] [place] [address] 32166 AST [Catalytic activity/Vol] 51 U/L High 0-41 [facility] Comment on above: Performed By: #### C BCA, CMP, 3040-3, 87374-5, 17910-3, PINR, 25725-3, 68620-4 #### [facility] ([id number]) [address] [place] [address] 49855 Bilirubin [Mass/Vol] 1.0 mg/dL Normal 0.3-1.2 [facility] Comment on above: Performed By: #### C BCA, CMP, 3040-3, 71751-5, 53782-7, PINR, 47123-7, 11310-5 #### [facility] ([id number]) [address] [place] [address] 43750 Calcium [Mass/Vol] 9.2 mg/dL Normal 8.5-10.5 [facility] Comment on above: Performed By: #### C BCA, CMP, 3040-3, 19829-2, 57073-9, PINR, 83335-2, 31401-2 #### [facility] ([id number]) [address] [place] [address] 92840 Chloride [Moles/Vol] 105 mmol/L Normal 98-109 [facility] Comment on above: Performed By: #### C BCA, CMP, 3040-3, 30132-0, 05555-0, PINR, 82064-5, 38081-0 #### [facility] ([id number]) [address] [place] [address] 71560 CO2 [Moles/Vol] 16 mmol/L Low 22-32 [facility] Comment on above: Performed By: #### C BCA, CMP, 3040-3, 29961-0, 99807-0, PINR, 26890-7, 04892-2 #### [facility] ([id number]) [address] [place] [address] 67665 Creatinine [Mass/Vol] 1.17 mg/dL Normal 0.70-1.20 [facility] Comment on above: Result Comment: METH OD TRACEABLE TO IDMS STANDARD Performed By: #### C BCA, CMP, 3040-3, 69796-2, 44162-6, PINR, 10441-6, 94906-1 #### [facility] ([id number]) [address] [place] [address] 81553 GFR/1.73 sq M.predicted among non-blacks MDRD (S/P/Bld) [Vol rate/Area] 72 mL/min/{1.73_m2} Normal >59 [facility] Comment on above: Result Comment: Reported eGFR is based on the CKD-EPI 2020 equation that does not use a race coefficient. Performed By: #### C BCA, CMP, 3040-3, 56885-2, 75599-4, PINR, 77098-6, 46962-7 #### [facility] ([id number]) [address] [place] [address] 22497 Glucose [Mass/Vol] 109 mg/dL High 65-99 [facility] Comment on above: Performed By: #### C BCA, CMP, 3040-3, 27338-5, 54096-3, PINR, 33972-2, 10199-1 #### [facility] ([id number]) [address] [place] [address] 51800 Potassium [Moles/Vol] 4.4 mmol/L Normal 3.5-5.0 [facility] Comment on above: Performed By: #### C BCA, CMP, 3040-3, 65626-7, 05166-2, PINR, 58669-9, 21614-8 #### [facility] ([id number]) [address] [place] [address] 53827 Protein [Mass/Vol] 7.5 g/dL Normal 6.0-8.0 [facility] Comment on above: Performed By: #### C BCA, CMP, 3040-3, 30044-0, 71719-1, PINR, 65853-4, 31113-0 #### [facility] ([id number]) [address] [place] [address] 85547 Sodium [Moles/Vol] 129 mmol/L Low 134-146 [facility] Comment on above: Performed By: #### C BCA, CMP, 3040-3, 67037-8, 23215-6, PINR, 76397-9, 67783-9 #### [facility] ([id number]) [address] [place] [address] 46276 Urea nitrogen [Mass/Vol] 82 mg/dL High 5-23 [facility] Comment on above: Performed By: #### C BCA, CMP, 3040-3, 73881-1, 40691-3, PINR, 54621-5, 32390-5 #### [facility] ([id number]) [address] [place] [address] 56053 Glucose Glucometer ([facility]) [M ass/Vol]on 12-23-2023 Glucose [Mass/Vol] 66 mg/dL Normal 65-99 [facility] Glucose [Mass/Vol] 153 mg/dL High 65-99 [facility] Glucose [Mass/Vol] 121 mg/dL High 65-99 [facility] LIPASEon 12-23-2023 Lipase [Catalytic activity/Vol] 90 U/L High 17-40 [facility] Comment on above: Performed By: #### C BCA, CMP, 3040-3, 10937-0, 87571-4, PINR, 68751-6, 45498-3 #### [facility] ([id number]) [address] [place] [address] 76423 Lactate (P ge) [Moles/Vol]o n 12-23-2023 LACTATE W/REFLEX 1.5 mmol/L Normal 0.4-2.0 [facility] Comment on above: Result Comment: Result did not trigger repeat Lactate, re-order if needed. Performed By: #### C BCA, CMP, 3040-3, 56650-3, 42022-8, PINR, 66625-6, 32666-0 #### [facility] ([id number]) [address] [place] [address] 97377 MAGNESIUMon 12-23-2023 Magnesium [Mass/Vol] 2.1 mg/dL Normal 1.8-2.6 [facility] Comment on above: Performed By: #### C BCA, CMP, 3040-3, 50113-7, 99660-7, PINR, 57228-2, 75356-6 #### [facility] ([id number]) [address] [place] [address] 90714 Natriuretic peptide B [Mass/ Vol]on 12-23-2023 Natriuretic peptide B (Bld) [Mass/Vol] 27 pg/mL Normal <100.0 [facility] Comment on above: Performed By: #### C BCA, CMP, 3040-3, 63104-0, 86678-2, PINR, 26569-9, 37364-6 #### [facility] ([id number]) [address] [place] [address] 56666 PROTIME AND INRon 12-23-2023 INR Coag (PPP) [Relative time] 6.2 {INR} Critically high 0.8-1.1 [facility] Comment on above: Performed By: #### C BCA, CMP, 3040-3, 99317-2, 58838-4, PINR, 50058-5, 03947-4 #### [facility] ([id number]) [address] [place] [address] 70734 PT Coag (PPP) [Time] 67.5 s High 9.8-13.2 [facility] Comment on above: Result Comment: NEW REFERENCE RANGE Performed By: #### C BCA, CMP, 3040-3, 40968-4, 04487-3, PINR, 91742-0, 81950-9 #### [facility] ([id number]) [address] [place] [address] 53118 SUPERFICIAL WOUND CULTUREon 12-23-2023 Bacteria identified Aer cx Nom (Wound) GRAM STAIN >25 WHITE BLOOD CELLS/LPF 1 to 9 SQUAMOUS EPITHELIAL CELLS/LPF MANY GRAM NEGATIVE RODS MANY GRAM POSITIVE COCCI MANY GRAM POSITIVE RODS RESEMBLING DIPHTHEROIDS CULTURE RESULTS MANY MIXED GRAM POSITIVE AND GRAM NEGATIVE ORGANISMS NO STAPHYLOCOCCUS AUREUS ISOLATED NO PSEUDOMONAS AERUGINOSA ISOLATED NO BETA HEMOLYTIC STREPTOCOCCI ISOLATED Normal [facility] Comment on above: Performed By: #### C BCA, CMP, 3040-3, 11445-1, 72119-6, PINR, 03999-9, 14534-7 #### [facility] ([id number]) [address] [place] [address] 35143 URINALYSISon 12-23-2023 Bilirubin Ql (U) Negative Normal NEG [facility] Comment on above: Performed By: #### C BCA, CMP, 3040-3, 84009-3, 32003-0, PINR, 04826-9, 49502-9 #### [facility] ([id number]) [address] [place] [address] 23405 BLOOD/HGB Negative Normal NEG [facility] Comment on above: Performed By: #### C BCA, CMP, 3040-3, 13658-9, 31471-3, PINR, 46304-1, 92938-6 #### [facility] ([id number]) [address] [place] [address] 19470 Color (U) YELLOW Normal YELLOW [facility] Comment on above: Performed By: #### C BCA, CMP, 3040-3, 32674-2, 58072-4, PINR, 52182-6, 94249-9 #### [facility] ([id number]) [address] [place] [address] [place] [address] Glucose Ql (U) Negative Normal NEG [facility] Comment on above: Performed By: #### C BCA, CMP, 3040-3, 70209-2, 76384-3, PINR, 65970-6, 64375-0 #### [facility] ([id number]) [address] [place] [address] [place] [address] Ketones Ql (U) Negative Normal NEG [facility] Comment on above: Performed By: #### C BCA, CMP, 3040-3, 07504-4, 02172-4, PINR, 22867-1, 80201-9 #### [facility] ([id number]) [address] [place] [address] [place] [address] Leukocyte esterase Test strip Ql (U) Negative Normal NEG [facility] Comment on above: Performed By: #### C BCA, CMP, 3040-3, 56440-6, 79727-6, PINR, 14142-5, 73046-8 #### [facility] ([id number]) [address] [place] [address] 57291 Nitrite Ql (U) Negative Normal NEG [facility] Comment on above: Performed By: #### C BCA, CMP, 3040-3, 98812-7, 44645-2, PINR, 75343-0, 81026-6 #### [facility] ([id number]) [address] [place] [address], [place] [address] pH (U) 6.0 [pH] Normal 5.0-8.5 [facility] Comment on above: Performed By: #### C BCA, CMP, 3040-3, 11862-7, 74346-9, PINR, 39345-2, 84706-9 #### [facility] ([id number]) [address] [place] [address] 73684 Protein Ql (U) Negative Normal NEG [facility] Comment on above: Performed By: #### C BCA, CMP, 3040-3, 10309-0, 05758-7, PINR, 36479-0, 29231-0 #### [facility] ([id number]) [address] [place] [address] 42679 Specific gravity (U) [Rel density] 1.015 Normal 1.003-1.035 [facility] Comment on above: Performed By: #### C BCA, CMP, 3040-3, 86333-1, 59954-9, PINR, 22845-1, 34777-8 #### [facility] ([id number]) [address] [place] [address] 68087 TURBIDITY CLEAR Normal CLEAR [facility] Comment on above: Performed By: #### C BCA, CMP, 3040-3, 81837-7, 78507-9, PINR, 35736-8, 59205-0 #### [facility] ([id number]) [address] [place] [address] 08924 Urobilinogen Qn (U) 0.2 {Efren'U}/dL Normal <1.1 [facility] Comment on above: Performed By: #### C BCA, CMP, 3040-3, 06914-6, 43370-4, PINR, 15191-8, 02731-2 #### [facility] ([id number]) [address] [place] [address] 52181 XR CHEST 1 VWon 01-29-2024 XR CHEST 1 VW XR CHEST 1 VW Clinical history: Leg swelling Views: 1 Comparison: 05/22/2018 Findings/Impression: 1. No acute infiltrate. No volume loss nor consolidation. There is no pleural effusion, pneumothorax, nor volume loss. Heart and mediastinal structures are unremarkable. Pulmonary vasculature stable. 2. No significant change Finalized by Jason Harrison MD on 12/23/2023 9:37 AM Normal [facility] XR TIBIA FIBULA LT MIN 2 [...] Harrison MD on 12/23/2023 9:39 AM Normal [facility] XR TIBIA FIBULA RT MIN 2 [...] knee or ankle joints on these large ngfui-bv-rvby images. IMPRESSION: No acute bony abnormalities demonstrated. Finalized by Salinas Carlos MD on 12/23/2023 9:49 AM Normal [facility] aPTT Coag (PPP) [Time]on aPTT Coag (Bld) [Time] 55 s High 26-37 [facility] Comment on above: Result Comment: NEW REFERENCE RANGE Performed By: #### C BCA, CMP, 3040-3, 36249-9, 74197-9, PINR, 73441-2, 76350-5 #### [facility] ([id number]) [address] [place] [address], [place] [address] Office Visiton 06-11-2023 Follow-up visit [id number] Hipolito Daniels 1965 M Date Provider Department Center 06/11/2023 KENDY [facility]CHELL [facility] Family History Problem Relation Age of Onset Hypertension Mother Diabetes Mother Stroke Father Cancer Father Family Status - Relation Status Age at Mother Father Level of Service:59947 PA OFFICE/OUTPATIENT ESTABLISHED LOW MDM 20-29 MIN Reason for Visit and Comments: Follow-up [096165] - 6 month follow up Normal [facility] A1C HEMOGLOBINon 02-08-2022 HbA1c (Bld) [Mass fraction] 6.8 % [employer] Other Glucose - FINGER STICKon Glucose [Mass/Vol] 143 mg/dL [employer] Other HbA1c (Bld) [Mass fraction]o n 02-08-2022 A1C HEMOGLOBIN [employer] Other ECHOCARDIO M/2D COMPLETEon 0 01-24-2022 ECHOCARDIO M/2D COMPLETE Patient: HIPOLITO DANIELS. Exam Date: 01/24/2022 : 1965 Gender:M Ordering : ANNALISA DYE Admission #: [id number] Family : Order #: [id number] CLICK HERE TO VIEW EXAM ECHOCARDIOGRAM REPORT [...] Villalpando M.D. on 01/24/2022 at 18:[address] [facility] A1C HEMOGLOBINon 08-28-2021 HbA1c (Bld) [Mass fraction] 7.3 % [employer] Other Glucose - FINGER STICKon Glucose [Mass/Vol] 140 mg/dL [employer] Other HbA1c (Bld) [Mass fraction]o n 08-28-2021 A1C HEMOGLOBIN [employer] Other Social History Date Type Detail Facility Start: 06-20-2018 End: 12-30-2023 Alcohol intake Current non-drinker of alcohol (finding) [facility] Start: 05-22-2018 End: 12-23-2023 Tobacco smoking status NHIS Smokes tobacco daily [facility] Start: 05-22-2018 End: 12-23-2023 Cigarettes smoked current (pack per day) - Reported 1 [facility] Start: 05-22-2018 End: 12-23-2023 Tobacco use and exposure Smokeless tobacco non-user [facility] Start: 02-05-2018 End: 12-23-2023 Sex Assigned At [facility] [employer] Other Start: 1965 Sex Assigned At Not on file P [facility] History of tobacco use Cigarette Smoker P [facility] Housing Instability Unknown [facility] Has the Balanced, or [employer] threatened to shut off services in your home in past 12Mo No [facility] Are you now , , , , never or living with a partner? [facility] How often to you hav e a drink containing alcohol? Never [facility] Do you feel stress - tense, restless, nervous, or anxious, or unable to sleep at night because your mind is troubled all the time - these days [OSQ] Only a little [facility] Vital Signs Date Time Vital Sign Value Performing Clinician Facility 01-07-2024 19:48-0500 Body temperature 98.49 [degF] Mat Davis MD Work Phone: [facility] 01-07-2024 19:48-0500 Diastolic blood pressure 65 mm[Hg] Mat Davis MD Work Phone: [facility] 01-07-2024 19:48-0500 Heart rate 105 /min Mat Davis MD Work Phone: [facility] 01-07-2024 19:48-0500 Respiratory rate 16 /min [facility] 01-07-2024 19:48-0500 SaO2% (BldA) [Mass fraction] 90 % [facility] 01-07-2024 19:48-0500 Systolic blood pressure 104 mm[Hg] [facility] 01-04-2024 05:45-0500 Body mass index (BMI) [Ratio] 35.59 kg/m2 Mat Davis [facility] 01-04-2024 05:45-0500 Body weight 115.7 kg Mat Davis [facility] 12-27-2023 17:00-0500 Body height 180.3 cm Mat Davis [facility] 02-08-2022 15:45-0400 Body height 182.25 cm Tondra Mapus Other [employer] Other 02-08-2022 15:45-0400 Body mass index (BMI) [Ratio] 36.19 kg/m2 Tondra Mapus Other [employer] Other 02-08-2022 15:45-0400 Body weight 120.2 kg Tondra Mapus Other [employer] Other 02-08-2022 15:45-0400 Diastolic blood pressure 79 mm[Hg] Tondra Mapus Other [employer] Other 02-08-2022 15:45-0400 Respiratory rate 20 /min Tondra Mapus Other [employer] Other 02-08-2022 15:45-0400 SaO2% (BldA) [Mass fraction] 96 % Tondra Mapus Other [employer] Other 02-08-2022 15:45-0400 Systolic blood pressure 123 mm[Hg] Tondra Mapus Other [employer] Other 08-28-2021 16:00-0400 Body height 182.25 cm Tondra Mapus Other [employer] Other 08-28-2021 16:00-0400 Body mass index (BMI) [Ratio] 36.87 kg/m2 Tondra Mapus Other [employer] Other 08-28-2021 16:00-0400 Body weight 122.47 kg Tondra Mapus Other [employer] Other 08-28-2021 16:00-0400 Diastolic blood pressure 85 mm[Hg] Tondra Mapus Other [employer] Other 08-28-2021 16:00-0400 Respiratory rate 16 /min Tondra Mapus Other [employer] Other 08-28-2021 16:00-0400 SaO2% (BldA) [Mass fraction] 95 % Tondra Mapus Other [employer] Other 08-28-2021 16:00-0400 Systolic blood pressure 120 mm[Hg] Tondra Mapus Other [employer] Other Clinical Notes 08-28-2021 to 02-17-2024 Bertha Paulino, [facility] - 02/17/2024 10:45 AM Ash Paulino [facility] - 01/30/2024 11:30 AM Yamileth Paulino, [facility] - 01/30/2024 11:30 AM Karina Diopy - 01/08/2024 8:42 AM ESTDischarge Instructions Note Date & Type Note Facility 02-17-2024 History of Present illness Narrative 15 minute [id number] follow-up anticoagulation appointment. INR performed in office per protocol. INR 2.3 (goal range: 2.0-3.0). Patient reports: Taking warfarin dosing as documented. Missed or extra doses of warfarin: No Changes to medications: YES Carvedilol stopped Digoxin started Changes to lifestyle (diet / alcohol / smoking / activity): No Recent emergency department visit / hospitalization / health changes / new contraindication to current anticoagulant: YES Increased edema in lower extremities Signs/symptoms of bruising/bleeding or clotting or any intolerable adverse events: YES Increased bleeding from wounds Upcoming procedures: No Patient reports they may need to complete a debridement Anticoagulant prescription needed: No Seen referring provider in the last year Duration of therapy reviewed Assessment: INR is remaining stable in therapeutic range on current warfarin regimen. Plan: Patient instructed to continue warfarin 5 mg Sun/Thurs and 7.5 mg AOD. Check INR in 3 week(s). Patient verbalizes understanding of anticoagulant dosing instructions and information discussed. Dosing regimen, counseling, and follow-up appointment were provided to the patient. Patient reminded to call with questions or any medication changes. Patient instructed to seek medical attention if any major bleeding/bleeding that persists or worsens. Bertha Paulino [facility] 02/17/24 [id number] documented in this encounter [facility] 02-10-2024 Note MD Cardiology - [facility] Subjective Hipolito Daniels is a 58 y.o. year old male patient being seen for follow up [facility] admission. Cardiology was consulted during hospital stay and they increased midodrine and lasix. He was started on metoprolol in the hospital but says he was never told to stop carvedilol. He is currently taking both, and says the care home was also giving him both when he went there after discharge. Says his HR has been elevated, despite taking 2 beta blockers. Denies chest pain and bleeding on warfarin, but always has SOB, lightheadedness, and palpitations. 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 year old male patient being seen [...] January 2022 showed normalization of LV function. He has lymphedema and is seeing lymphedema clinic. He was recently admitted to the [facility] in November 2023 with lower extremity edema and leg wounds and underwent treatment with hyperbaric oxygen as well as antibiotics for cellulitis. He recovered. During that admission metoprolol was added. He was not instructed to stop carvedilol. He has been taking both. His blood pressure has been low and today in the office is less than 80 systolic. He continues to complain of symptoms of dizziness and lightheadedness as well as shortness of breath on exertion and leg swelling but he has had no syncope. NYHA class II. Review of Systems Cardiovascular: Positive for dyspnea on exertion, leg swelling and palpitations. Respiratory: Positive for shortness of breath. Skin: Positive for poor wound healing. Neurological: Positive for dizziness, light-headedness and loss of balance. Objective Visit Vitals BP (!) 78/48 (BP Location: Left arm, Patient Position: Sitting) Pulse 64 Ht 1.803 m (5' 11 ) Wt 110 kg (242 lb) SpO2 96% BMI 33.75 kg/m??? Smoking Status Every Day BSA 2.35 m??? Physical Exam Constitutional: Appearance: He is [...] Judgment: Judgment normal. Allergies Allergies Allergen Reactions Penicillins Rash Shellfish Derived Other Chills Cephalexin Hives and Other Ciprofloxacin Hives and Other Magnesium Sulfate Other IV only- Patient reports it feels like someone is putting lava in my veins Albuterol Other and Palpitations Medications Current Outpatient Medications: aspirin 81 mg EC tablet, Take 1 tablet every day by oral route., Dis (more content not included)... [facility] 01-30-2024 History of Present illness Narrative 15 minute [id number] follow-up anticoagulation appointment. INR performed in office per protocol. INR 1.8 (goal range: 2.0-3.0). Patient reports: Taking warfarin dosing as documented. Missed or extra doses of warfarin: No Changes to medications: YES Patient is taking both carvedilol and metoprolol together. Discussed carvedilol was to be stopped on discharge. Patient is adamant he is suppose to take both. Encouraged him to call cardiology to discuss Patient did not reduce Imdur to 30 mg as instructed on discharge. Has continued 60 mg per pre-admission dosing Patient did not start Cymbalta as prescribed Patient has not been taking midodrine routinely Changes to lifestyle (diet / alcohol / smoking / activity): YES Patient is taking protein shake 1x per day, patient will be increasing to 2x per day Recent emergency department visit / hospitalization / health changes / new contraindication to current anticoagulant: YES Patient reports he has passed out at home from low blood pressure--- discussed with patient that he is taking medications with DDI and duplicate therapies Currently being treated for lympedema/cellulitis Patient reports he lost 50 pounds in 3 weeks Signs/symptoms of bruising/bleeding or clotting or any intolerable adverse events: No Upcoming procedures: No Anticoagulant prescription needed: No Seen referring provider in the last year Duration of therapy reviewed Assessment: INR is subtherapeutic likely due to addition of protein shake. WE will increase weekly dose by 6% and safety check in 2 weeks. Patient reports taking both metoprolol and carvedilol --Explained to patient on discharge carvedilol was to be stopped per discharge summary. Patient adamant he is to take both and reports his fancy wire drawer told him so. We will reach out to Dr. Villalpando to notify Plan: Patient instructed to increase to warfarin 5 mg Sat/ and 7.5 mg AOD. Check INR in 2 week(s). Patient verbalizes understanding of anticoagulant dosing instructions and information discussed. Dosing regimen, counseling, and follow-up appointment were provided to the patient. Patient reminded to call with questions or any medication changes. Patient instructed to seek medical attention if any major bleeding/bleeding that persists or worsens. Bertha Paulino RPH 01/30/24 1239 Called fancy wire drawer at [phone] to notify that patient is taking both metoprolol and carvedilol. LM for fancy wire drawer that patient is taking both and despite education that he was to stop carvedilol he is adamant about taking both. Also noted patient with orthostatic hypotension during admission. Left Sid number to return call with any further questions. Bertha Paulino, EvyD, [facility] January 30, 2024 12:39 PM Bertha Paulino [facility] 01/30/24 1239 documented in this encounter [facility] 01-08-2024 History of Present illness Narrative Patient was admitted to [facility] on 12/23, then was transferred to [facility] 12/25-01/07/24 for cellulitis with venous ulcers on BL lower extremities. He had a 2-week history of drainage with new sores opening on lower legs. XR revealed extensive soft tissue swelling concerning for cellulitis in E, negative blood cultures; patient was treated with [...] with midodrine. Patient was discharged to SNF ([facility]). Patient has a PMH of AF on warfarin. Numerous medication changes were made at discharge, none largely affecting INR. Patient was not discharged with antibiotics. Please see anticoagulation track board for dosing while inpatient. INR was 1.8 at discharge on 01/07. Thalia Dias 01/08/24 1054 Called [facility] (P: [phone]) 01/08/24 10:52 AM and spoke with Kimmie. She confirms that in house provider will manage warfarin. Requested to be notified when patient discharges and for INRs and warfarin dosing to be faxed to [facility]. Anticoagulation episode resolved. Letter sent to referring provider. Laureen Geller [facility] 01/08/24 1059 documented in this encounter [facility] 01-08-2024 Nurse Note Patient picked up by PTN for transfer to [facility]. All belongings returned. Telemetry and IV removed. [facility] called for update on patient arrival. No further needs at this time. documented in this encounter [facility] 01-07-2024 Hospital Discharge instructions Shannen Remy [...] after a meal. documented in this encounter [facility] 01-07-2024 Miscellaneous Notes Physical Therapy Treatment Discharge Recommendations PT Recommendations: [facility] 6 Clicks: Basic Mobility Turning from [...] okay to see per RN Equipment: Rasheed treasure, gait belt Telemetry/Retort Fireman: Yes Other: fall risk, bilat LE wounds, [...] and completed sit<>stand transfers with CGA-Utilized rasheed treasure to transfer to and from toilet due [...] 20-30 sec x2 using BUE support on rasheed stedy-SBA for safety. Activity Tolerance Endurance: Tolerates [...] Date/Time User Outcome 01/07/24 1555 Donny Epstein, TECHNICAL OPERATOR Not Progressing 01/06/24 1550 Donny Epstein, TECHNICAL OPERATOR Progressing Problem: Bed Mobility Dates: Start: 01/03/24 Disciplines: PT Goal: Patient will perform bed mobility Independently Dates: Start: 01/03/24 Expected End: 01/31/24 Description: Goal Description: Disciplines: PT Outcomes Date/Time User Outcome 01/07/24 1555 Donny Epstein, TECHNICAL OPERATOR Progressing 01/06/24 1550 Donny Epstein, TECHNICAL OPERATOR Progressing Problem: Gait Dates: Start: 01/03/24 Disciplines: PT Goal: Patient will perform gait with Modified [place] Dates: Start: 01/03/24 Expected End: 01/31/24 Description: With RW, 60 feet Goal Description: Disciplines: PT Outcomes Date/Time User Outcome 01/07/24 1555 Donny Epstein, TECHNICAL OPERATOR Not Progressing Problem: Stairs/Curb Dates: Start: 01/03/24 [...] Date/Time User Outcome 01/07/24 1555 Donny Epstein, TECHNICAL OPERATOR Progressing 01/06/24 1550 Donny Epstein, TECHNICAL OPERATOR Progressing Problem: Strength Dates: Start: 01/03/24 Disciplines: PT Goal: Improve strength Dates: Start: 01/03/24 Expected End: 01/31/24 Description: Of extremity/ location: bilat 4/5 To facilitate: functional independence Disciplines: PT Outcomes Date/Time User Outcome 01/07/24 1555 Donny Epstein, TECHNICAL OPERATOR Progressing 01/06/24 1550 Donny Epstein TECHNICAL OPERATOR Progressing Problem: Transfers Dates: Start: 01/03/24 Disciplines: PT Goal: Patient will perform transfers with Modified [place] Dates: Start: 01/03/24 Expected End: 01/31/24 Description: Goal Description: Disciplines: PT Outcomes Date/Time User Outcome 01/07/24 1555 Donny Epstein, TECHNICAL OPERATOR Not Progressing 01/06/24 1550 Donny Epstein, TECHNICAL OPERATOR Progressing Physical Therapy Care Plan (Resolved) There are no resolved problems. Principal Problem: Cellulitis Active Problems: Chronic atrial fibrillation (CMS-HCC) Diastolic heart failure ([facility]-HCC) Essential hypertension Mixed hyperlipidemia Type 2 diabetes mellitus with obesity (CMS-HCC) Venous ulcer of left lower extremity without varicose veins (CMS-HCC) Venous ulcer of right lower extremity without varicose veins ([facility]-HCC) Open wound of both lower extremities Lymphedema Associated attestation - Emily Gaines, PT - 01/07/2024 4:05 PM EST I have reviewed and agree with this note and education documentation for this visit. Occupational Therapy Treatment Discharge Recommendations OT Recommendations : [facility] 6 Clicks: Daily Activity Putting on [...] ok to see per RN Equipment: rasheed Zidoff [employer] Weight Bearing Status: no restriction Telemetry/Retort Fireman: Yes Oxygen Used: room air Other: fall [...] own candi-care. transferred to toilet with rasheed afsanehdy. deferred other ADLs this date. Home Management - IADL Other: pt completed toileting while working on unsupported sitting approx 15 minutes on toilet. pt completed own candi-care. transferred to toilet with rasheed stedy. deferred other ADLs this date. Hearing / [...] Other: completed STS transfer x2 with rasheed stedy and CGA. Pt demonstrated correct hand placement [...] to complete exercises or other tasks with freelance writer. Plan Occupational Therapy Care Plan Occupational [...] Patient will perform bed mobility with Modified [place] Dates: Start: 01/03/24 Expected End: 01/31/24 Description: Goal Description: Disciplines: OT Outcomes Date/Time User Outcome 01/07/24 1528 Marlena David OTR/L Progressing 01/06/24 1541 Shanna Cordoba OTR/L Progressing Goal Note filed on 01/07/24 1528 by Marlena David OTR/L Evaluation of progress towards goal: Problem: Functional Mobility Dates: Start: 01/03/24 Disciplines: OT Goal: Patient will perform functional mobility with Modified [place] Dates: Start: 01/03/24 Expected End: 01/31/24 Description: Goal Description: Disciplines: OT Outcomes Date/Time User Outcome 01/07/24 1528 Marlena David OTR/Al Not Progressing Goal Note filed on 01/07/24 [...] OTR/Al Evaluation of progress towards goal: Problem: Strength [...] Patient will perform toilet transfers with Modified [place] Dates: Start: 01/03/24 Expected End: 01/31/24 Description: Goal Description: Disciplines: OT Outcomes Date/Time User Outcome 01/07/24 1528 Marlena David OTR/L Progressing Goal Note filed on 01/07/24 1528 by Marlena David OTR/Al Evaluation of progress towards goal: Problem: Transfers Dates: Start: 01/03/24 Disciplines: OT Goal: Patient will perform transfers with Modified [place] Dates: Start: 01/03/24 Expected End: 01/31/24 Description: Goal Description: Disciplines: OT Outcomes Date/Time User Outcome 01/07/24 1528 Marlena David OTR/L Progressing 01/06/24 1541 Shanna Cordoba OTR/L Progressing Goal Note filed on 01/07/24 1528 by Marlena David OTR/Al Evaluation of progress towards goal: Occupational Therapy Care Plan (Resolved) There are no resolved problems. Principal Problem: Cellulitis Active Problems: Chronic atrial fibrillation ([facility]-HCC) Diastolic heart failure ([facility]-HCC) Essential hypertension Mixed hyperlipidemia Type 2 diabetes mellitus with obesity ([facility]) Venous ulcer of left lower extremity without varicose veins ([facility]-HCC) Venous ulcer of right lower extremity without varicose veins ([facility]) Open wound of both lower extremities Lymphedema DISCHARGE PLANNING NOTE BLS transport via PTN to [facility] 01/07/24 at 7:00pm. Confirmed in [employer] DISCHARGE PLANNING NOTE Authorization has been approved for [facility]. [facility] to schedule 5p BLS transport. , RN informed - SHANNA CORNELIUS 01/07/24 11:07 AM CRF sent. Transport packet complete. Transport scheduled for 7p - SHANNA CORNELIUS 01/07/24 2:44 PM Problem: Pain Goal: Patient goal is pain score less than 4, able to rest, and participant in treatment plan as appropriate Description: INTERVENTIONS: 1. Encourage patient or legal passenger relations representative to report early pain and ask [...] per policy 9. Teach patient or legal passenger relations representative interventions for comforting Outcome: Progressing Note: [...] at the bedside 7. Instruct patient/ patient passenger relations representative about use of safety devices 8. Include patient/ patient passenger relations representative in decisions related to safety Outcome: [...] hygiene technique 7. Identify and instruct patient/patient passenger relations representative in use of appropriate isolation precautions for identified infection/symptoms 8. Provide and discuss with patient/patient passenger relations representative on educational MDRO sheet 9. Encourage and monitor nutritional status daily and consult resident services director if indicated 10. Implement neutropenic guidelines as needed 11. Review exposure to history of communicable disease and recent travel history on admission 12. Encourage annual influenza vaccine 13. Encourage pneumonia vaccine Outcome: Progressing Note: Evaluation of progress towards goal: Patient is progressing towards an absence of infection during this hospital stay. Problem: Knowledge Deficit Goal: Patient/patient passenger relations representative demonstrates understanding of disease process, treatment [...] DISCHARGE PLANNING NOTE Prior auth sent to [facility] on behalf of [facility] with ref [id number] approved for 7 days and member must admit within the next 72 hours Physical Therapy Treatment Discharge Recommendations PT Recommendations: [facility] 6 Clicks: Basic Mobility Turning from [...] per RN Equipment: Gait belt, rasheed stedy Telemetry/Retort Fireman: Yes Other: fall risk, bilat LE wounds, [...] minutes x2 with [facility], no LOB noted. 01/06/24 1516 LE Supine LE supine exercises performed? Yes Ankle pumps X Supine heel slides X Hip abduction X Leg raises X Repetitions 10 Therapeutic Activity Therapeutic activity exercises performed? Yes Seated X Other Incentive Spirometer Repetitions 10 Other Exercise Assessment Other exercises performed? Yes Exercise Type #1 Ball squeeze for simplex printer installer strengthening Activity Tolerance Endurance: Tolerates 30 minutes [...] Disciplines: PT Outcomes Date/Time User Outcome 01/06/24 1550 Donny Epstein, TECHNICAL OPERATOR Progressing Problem: Bed Mobility Dates: Start: 01/03/24 Disciplines: PT Goal: Patient will perform bed mobility Independently Dates: Start: 01/03/24 Expected End: 01/31/24 Description: Goal Description: Disciplines: PT Outcomes Date/Time User Outcome 01/06/24 1550 Donny Epstein, TECHNICAL OPERATOR Progressing Problem: Gait Dates: Start: 01/03/24 Disciplines: PT Goal: Patient will perform gait with Modified [place] Dates: Start: 01/03/24 Expected End: 01/31/24 Description: [...] Disciplines: PT Outcomes Date/Time User Outcome 01/06/24 1550 Donny Epstein PTA Progressing Problem: Strength Dates: Start: 01/03/24 Disciplines: PT Goal: Improve strength Dates: Start: 01/03/24 Expected End: 01/31/24 Description: Of extremity/ location: bilat 4/5 To facilitate: functional independence Disciplines: PT Outcomes Date/Time User Outcome 01/06/24 1550 Donny Epstein PTA Progressing Problem: Transfers Dates: Start: 01/03/24 Disciplines: PT Goal: Patient will perform transfers with Modified [place] Dates: Start: 01/03/24 Expected End: 01/31/24 Description: Goal Description: Disciplines: PT Outcomes Date/Time User Outcome 01/06/24 155Presley Epstein PTA Progressing Physical Therapy Care Plan (Resolved) There are no resolved problems. Principal Problem: Cellulitis Active Problems: Chronic atrial fibrillation ([facility]) Diastolic heart failure ([facility]) Essential hypertension Mixed hyperlipidemia Type 2 diabetes mellitus with obesity ([facility]) Venous ulcer of left lower extremity without varicose veins ([facility]-HCC) Venous ulcer of right lower extremity without varicose veins ([facility]) Open wound of both lower extremities Lymphedema Associated attestation - Emily Gaines, PT - 01/06/2024 5:07 PM EST I have reviewed and agree with this note and education documentation for this visit. Occupational Therapy Treatment Discharge Recommendations OT Recommendations : [facility] SNF/ECF Comments: Recommend SNF at discharge [...] belt, RW Weight Bearing Status: no restriction Telemetry/Retort Fireman: Yes Oxygen Used: room air Other: fall [...] Outcome 01/06/24 1541 CORTNEY Mittal/Al Progressing Problem: Bed Mobility Dates: Start: 01/03/24 Disciplines: OT Goal: Patient will perform bed mobility with Modified [place] Dates: Start: 01/03/24 Expected End: 01/31/24 Description: Goal Description: Disciplines: OT Outcomes Date/Time User Outcome 01/06/24 Katina Shanna Cordoba OTR/Al Progressing Problem: Functional Mobility Dates: Start: 01/03/24 Disciplines: OT Goal: Patient will perform functional mobility with Modified [place] Dates: Start: 01/03/24 Expected End: 01/31/24 Description: Goal Description: Disciplines: OT Problem: Other (Customize) Dates: Start: 01/03/24 Description: Pt will demo MOD I with all ADLs using AE prn to facilitate return to PLOF. Disciplines: OT Goal: Improve Dates: Start: 01/03/24 Expected End: 01/31/24 Description: Goal Description: Disciplines: OT Outcomes Date/Time User Outcome 01/06/24 Katina Shanna Cordoba OTR/Al Progressing Problem: Standing Balance Dates: Start: 01/03/24 Disciplines: OT Goal: Improve balance to good Dates: Start: 01/03/24 Expected End: 01/31/24 Description: Static Dynamic Disciplines: OT Outcomes Date/Time User Outcome 01/06/24 Katina Shanna Cordoba OTR/Al Progressing Problem: Strength Dates: Start: 01/03/24 Description: Pt will demo good understanding of BUE strengthening HEP to increase endurance for functional transfers, mobility, and ADL with RW. Disciplines: OT Goal: Improve strength Dates: Start: 01/03/24 Expected End: 01/31/24 Description: Of extremity/ location: To facilitate: Disciplines: OT Outcomes Date/Time User Outcome 01/06/24 Katina Shanna Cordoba OTR/Al Progressing Problem: Toilet Transfers Dates: Start: 01/03/24 Disciplines: OT Goal: Patient will perform toilet transfers with Modified [place] Dates: Start: 01/03/24 Expected End: 01/31/24 Description: Goal Description: Disciplines: OT Problem: Transfers Dates: Start: 01/03/24 Disciplines: OT Goal: Patient will perform transfers with Modified [place] Dates: Start: 01/03/24 Expected End: 01/31/24 Description: Goal Description: Disciplines: OT Outcomes Date/Time User Outcome 01/06/24 Katina Shanna Cordoba OTR/Al Progressing Occupational Therapy Care Plan (Resolved) There are no resolved problems. Principal Problem: Cellulitis Active Problems: Chronic atrial fibrillation ([facility]) Diastolic heart failure ([facility]) Essential hypertension Mixed hyperlipidemia Type 2 diabetes mellitus with obesity ([facility]) Venous ulcer of left lower extremity without varicose veins ([facility]) Venous ulcer of right lower extremity without varicose veins ([facility]) Open wound of both lower extremities Lymphedema DISCHARGE PLANNING NOTE Discharge to [facility] pending auth. [facility] tasked to submit. Pt will need S transport. - SHANNA CORNELIUS 01/06/24 1:37 PM Problem: Pain Goal: Patient goal is pain score less than 4, able to rest, and participant in treatment plan as appropriate Description: INTERVENTIONS: 1. Encourage patient or legal passenger relations representative to report early pain and ask [...] per policy 9. Teach patient or legal passenger relations representative interventions for comforting Outcome: Progressing Note: [...] at the bedside 7. Instruct patient/ patient passenger relations representative about use of safety devices 8. Include patient/ patient passenger relations representative in decisions related to safety Outcome: [...] hygiene technique 7. Identify and instruct patient/patient passenger relations representative in use of appropriate isolation precautions for identified infection/symptoms 8. Provide and discuss with patient/patient passenger relations representative on educational MDRO sheet 9. Encourage and monitor nutritional status daily and consult resident services director if indicated 10. Implement neutropenic guidelines as needed 11. Review exposure to history of communicable disease and recent travel history on admission 12. Encourage annual influenza vaccine 13. Encourage pneumonia vaccine Outcome: Progressing Note: Evaluation of progress towards goal: Monitoring labs and vitals. Patient afebrile at this time. Problem: Knowledge Deficit Goal: Patient/patient passenger relations representative demonstrates understanding of disease process, treatment [...] Description: INTERVENTIONS: 1. Encourage patient or legal passenger relations representative to report early pain and ask [...] per policy 9. Teach patient or legal passenger relations representative interventions for comforting Outcome: Progressing Note: [...] at the bedside 7. Instruct patient/ patient passenger relations representative about use of safety devices 8. Include patient/ patient passenger relations representative in decisions related to safety Outcome: Progressing Note: Evaluation of progress towards goal: free from injury Problem: Pain Goal: Patient goal is pain score less than 4, able to rest, and participant in treatment plan as appropriate Description: INTERVENTIONS: 1. Encourage patient or legal passenger relations representative to report early pain and ask [...] per policy 9. Teach patient or legal passenger relations representative interventions for comforting Outcome: Progressing Note: [...] at the bedside 7. Instruct patient/ patient passenger relations representative about use of safety devices 8. Include patient/ patient passenger relations representative in decisions related to safety Outcome: [...] hygiene technique 7. Identify and instruct patient/patient passenger relations representative in use of appropriate isolation precautions for identified infection/symptoms 8. Provide and discuss with patient/patient passenger relations representative on educational MDRO sheet 9. Encourage and monitor nutritional status daily and consult resident services director if indicated 10. Implement neutropenic guidelines as needed 11. Review exposure to history of communicable disease and recent travel history on admission 12. Encourage annual influenza vaccine 13. Encourage pneumonia vaccine Outcome: Progressing Note: Evaluation of progress towards goal: Monitoring labs and vitals. Patient afebrile at this time. Problem: Knowledge Deficit Goal: Patient/patient passenger relations representative demonstrates understanding of disease process, treatment [...] Description: INTERVENTIONS: 1. Encourage patient or legal passenger relations representative to report early pain and ask [...] per policy 9. Teach patient or legal passenger relations representative interventions for comforting Outcome: Progressing Note: [...] at the bedside 7. Instruct patient/ patient passenger relations representative about use of safety devices 8. Include patient/ patient passenger relations representative in decisions related to safety Outcome: Progressing Note: Evaluation of progress towards goal: free from injury Problem: Pain Goal: Patient goal is pain score less than 4, able to rest, and participant in treatment plan as appropriate Description: INTERVENTIONS: 1. Encourage patient or legal passenger relations representative to report early pain and ask [...] per policy 9. Teach patient or legal passenger relations representative interventions for comforting Outcome: Progressing Note: [...] at the bedside 7. Instruct patient/ patient passenger relations representative about use of safety devices 8. Include patient/ patient passenger relations representative in decisions related to safety Outcome: [...] hygiene technique 7. Identify and instruct patient/patient passenger relations representative in use of appropriate isolation precautions for identified infection/symptoms 8. Provide and discuss with patient/patient passenger relations representative on educational MDRO sheet 9. Encourage and monitor nutritional status daily and consult resident services director if indicated 10. Implement neutropenic guidelines as needed 11. Review exposure to history of communicable disease and recent travel history on admission 12. Encourage annual influenza vaccine 13. Encourage pneumonia vaccine Outcome: Progressing Note: Evaluation of progress towards goal: monitoring labs and vitals Problem: Knowledge Deficit Goal: Patient/patient passenger relations representative demonstrates understanding of disease process, treatment [...] Therapy Evaluation Discharge Recommendations OT Recommendations : [facility] SNF/ECF Comments: Recommend SNF at discharge [...] IV line Weight Bearing Status: no restriction Telemetry/Retort Fireman: Yes Oxygen Used: room air Other: fall [...] Rolling walker Other : not using DME guard captain Prior Function Lives With: Alone Receives [...] Patient will perform bed mobility with Modified [place] Dates: Start: 01/03/24 Expected End: 01/31/24 Description: Goal Description: Disciplines: OT Problem: Functional Mobility Dates: Start: 01/03/24 Disciplines: OT Goal: Patient will perform functional mobility with Modified [place] Dates: Start: 01/03/24 Expected End: 01/31/24 Description: [...] Patient will perform toilet transfers with Modified [place] Dates: Start: 01/03/24 Expected End: 01/31/24 Description: Goal Description: Disciplines: OT Problem: Transfers Dates: Start: 01/03/24 Disciplines: OT Goal: Patient will perform transfers with Modified [place] Dates: Start: 01/03/24 Expected End: 01/31/24 Description: Goal Description: Disciplines: OT Occupational Therapy Care Plan (Resolved) There are no resolved problems. Principal Problem: Cellulitis Active Problems: Chronic atrial fibrillation ([facility]) Diastolic heart failure ([facility]) Essential hypertension Mixed hyperlipidemia Type 2 diabetes mellitus with obesity ([facility]) Venous ulcer of left lower extremity without varicose veins ([facility]) Venous ulcer of right lower extremity without varicose veins ([facility]) Open wound of both lower extremities Lymphedema Past Medical History: Diagnosis Date Angina pectoris ([facility] Arthritis Atrial fibrillation ([facility]) Chronic kidney disease kidney stones COPD (chronic obstructive pulmonary disease) ([facility]) Coronary artery disease Dental disease Diabetes mellitus type 2, controlled ([facility] Hyperlipidemia Hypertension Migraines Myocardial infarction ([facility]) x2 Obesity Pneumonia Rash Shortness of breath Visual impairment glasses Past Surgical History: Procedure Laterality Date ABDOMINAL SURGERY complete abdominoplasty APPENDECTOMY CARDIAC CATHETERIZATION LAD stents x2 CARDIAC ELECTROPHYSIOLOGY MAPPING AND ABLATION CHOLECYSTECTOMY EXCISIONAL DEBRIDEMENT LOWER LEGS Bilateral 12/27/2023 Performed by Hardeep Kiran MD at [facility] HERNIA REPAIR KNEE ARTHROSCOPY Bilateral LITHOTRIPSY MANIPULATION SHOULDER Left 06/19/2018 Performed by Jr Kendy Renee DO at [facility] TONSILLECTOMY Physical Therapy Evaluation Discharge Recommendations PT Recommendations: [facility] SN[facility]F Comments: due to decreased functional [...] 6 Clicks: Basic Mobility Raw Score: 14 [facility] G Code Modifier: CK Therapy Plan Need [...] Past Medical History: Diagnosis Date Angina pectoris ([facility]) Arthritis Atrial fibrillation ([facility]) Chronic kidney disease kidney stones COPD (chronic obstructive pulmonary disease) ([facility]) Coronary artery disease Dental disease Diabetes mellitus type 2, controlled ([facility]) Hyperlipidemia Hypertension Migraines Myocardial infarction ([facility]) x2 Obesity Pneumonia Rash Shortness of breath Visual impairment glasses Past Surgical History: Procedure Laterality Date ABDOMINAL SURGERY complete abdominoplasty APPENDECTOMY CARDIAC CATHETERIZATION LAD stents x2 CARDIAC ELECTROPHYSIOLOGY MAPPING AND ABLATION CHOLECYSTECTOMY EXCISIONAL DEBRIDEMENT LOWER LEGS Bilateral 12/27/2023 Performed by Hardeep Kiran MD at [facility] HERNIA REPAIR KNEE ARTHROSCOPY Bilateral LITHOTRIPSY MANIPULATION SHOULDER Left 06/19/2018 Performed by Jr Kendy Renee DO at [facility] TONSILLECTOMY PT Treatment/Interventions: Functional transfer training, LE [...] IV line Weight Bearing Status: no restriction Telemetry/Retort Fireman: Yes Oxygen Used: room air Other: fall [...] Homemaking Assistance: Independent (assist with driving from kids) Shopping: Total assist Hearing / Speech / [...] Goal: Patient will perform gait with Modified [place] Dates: Start: 01/03/24 Expected End: 01/31/24 Description: [...] Goal: Patient will perform transfers with Modified [place] Dates: Start: 01/03/24 Expected End: 01/31/24 Description: Goal Description: Disciplines: PT Physical Therapy Care Plan (Resolved) There are no resolved problems. Principal Problem: Cellulitis Active Problems: Chronic atrial fibrillation ([facility]) Diastolic heart failure ([facility]) Essential hypertension Mixed hyperlipidemia Type 2 diabetes mellitus with obesity ([facility]) Venous ulcer of left lower extremity without varicose veins ([facility]) Venous ulcer of right lower extremity without varicose veins ([facility]) Open wound of both lower extremities Lymphedema DISCHARGE PLANNING NOTE Referral to [facility] (P#: ; F#: ) DISCHARGE PLANNING NOTE SW spoke to pt about discharge plans. He would like a referral sent to [facility]. [facility] tasked for referral. SW will continue to follow for additional needs - SHANNA CORNELIUS 01/03/24 11:49 AM Problem: Pain Goal: Patient goal is pain score less than 4, able to rest, and participant in treatment plan as appropriate Description: INTERVENTIONS: 1. Encourage patient or legal passenger relations representative to report early pain and ask [...] per policy 9. Teach patient or legal passenger relations representative interventions for comforting Note: Evaluation of [...] at the bedside 7. Instruct patient/ patient passenger relations representative about use of safety devices 8. Include patient/ patient passenger relations representative in decisions related to safety Outcome: [...] hygiene technique 7. Identify and instruct patient/patient passenger relations representative in use of appropriate isolation precautions for identified infection/symptoms 8. Provide and discuss with patient/patient passenger relations representative on educational MDRO sheet 9. Encourage and monitor nutritional status daily and consult resident services director if indicated 10. Implement neutropenic guidelines as [...] Description: INTERVENTIONS: 1. Encourage patient or legal passenger relations representative to report early pain and ask [...] per policy 9. Teach patient or legal passenger relations representative interventions for comforting Outcome: Progressing Note: [...] at the bedside 7. Instruct patient/ patient passenger relations representative about use of safety devices 8. Include patient/ patient passenger relations representative in decisions related to safety Outcome: [...] hygiene technique 7. Identify and instruct patient/patient passenger relations representative in use of appropriate isolation precautions for identified infection/symptoms 8. Provide and discuss with patient/patient passenger relations representative on educational MDRO sheet 9. Encourage and monitor nutritional status daily and consult resident services director if indicated 10. Implement neutropenic guidelines as needed 11. Review exposure to history of communicable disease and recent travel history on admission 12. Encourage annual influenza vaccine 13. Encourage pneumonia vaccine Outcome: Progressing Note: Evaluation of progress towards goal: Pt remains free from s/s of infection. Problem: Knowledge Deficit Goal: Patient/patient passenger relations representative demonstrates understanding of disease process, treatment [...] Score of =/> 25 or indicated by [facility] Assessment Goal: Patient should be free from fall Description: Interventions: 1. [place] to environment 2. Hourly rounds addressing the [...] non-skid footwear 11. Teach patient and patient passenger relations representative to maintain environment for safety and [...] (cane, walker) within reach 19. Request patient passenger relations representative bring adaptive equipment/mobility aids from home or obtain and provide as needed 20. Consult pharmacy regarding effects of med's affecting mobility, cognition, and alternatives 21. Obtain physician order for PT if risk factors associated with mobility are present 22. Obtain physician order for OT as appropriate 23. Utilize diversional activities 24. Educate patient and patient passenger relations representative how to maintain a safe environment during visitation times (notify nurse prior to leaving bedside) 25. Consider appropriateness of medical or non-medical social consultant 26. Set up voiding schedule as appropriate [...] the patient for wound care. Lashaun Goldsmith DNP,[facility] Pager #[phone] Sat-Sat 8a-4:00p [phone] PATY Smith 01/02/24 1713 Problem: Safety Goal: Patient will be injury free during hospitalization Description: INTERVENTIONS: 1. Assess patient's risk for falls and implement fall prevention plan of care per policy 2. Provide and maintain a safe environment 3. Proper use of double Identifiers 4. Medication administration using the 5 rights 5. Hand hygiene 6. Specimens are labeled at the bedside 7. Instruct patient/ patient passenger relations representative about use of safety devices 8. Include patient/ patient passenger relations representative in decisions related to safety Outcome: Progressing Note: Evaluation of progress towards goal: Fall precautions in place. Patient remains free from injury. Problem: Moderate - High Risk Fall Score Description: [place] Fall Score of =/> 25 or indicated by [facility] Assessment Goal: Patient should be free from fall Description: Interventions: 1. [place] to environment 2. Hourly rounds addressing the [...] non-skid footwear 11. Teach patient and patient passenger relations representative to maintain environment for safety and [...] (cane, walker) within reach 19. Request patient passenger relations representative bring adaptive equipment/mobility aids from home or obtain and provide as needed 20. Consult pharmacy regarding effects of med's affecting mobility, cognition, and alternatives 21. Obtain physician order for PT if risk factors associated with mobility are present 22. Obtain physician order for OT as appropriate 23. Utilize diversional activities 24. Educate patient and patient passenger relations representative how to maintain a safe environment during visitation times (notify nurse prior to leaving bedside) 25. Consider appropriateness of medical or non-medical social consultant 26. Set up voiding schedule as appropriate [...] Description: INTERVENTIONS: 1. Encourage patient or legal passenger relations representative to report early pain and ask [...] per policy 9. Teach patient or legal passenger relations representative interventions for comforting Outcome: Progressing Note: [...] at the bedside 7. Instruct patient/ patient passenger relations representative about use of safety devices 8. Include patient/ patient passenger relations representative in decisions related to safety Outcome: [...] hygiene technique 7. Identify and instruct patient/patient passenger relations representative in use of appropriate isolation precautions for identified infection/symptoms 8. Provide and discuss with patient/patient passenger relations representative on educational MDRO sheet 9. Encourage and monitor nutritional status daily and consult resident services director if indicated 10. Implement neutropenic guidelines as needed 11. Review exposure to history of communicable disease and recent travel history on admission 12. Encourage annual influenza vaccine 13. Encourage pneumonia vaccine Outcome: Progressing Note: Evaluation of progress towards goal: patient remains free from infection, will monitor. Problem: Knowledge Deficit Goal: Patient/patient passenger relations representative demonstrates understanding of disease process, treatment [...] Score of =/> 25 or indicated by [facility] Assessment Goal: Patient should be free from fall Description: Interventions: 1. [place] to environment 2. Hourly rounds addressing the [...] non-skid footwear 11. Teach patient and patient passenger relations representative to maintain environment for safety and [...] (cane, walker) within reach 19. Request patient passenger relations representative bring adaptive equipment/mobility aids from home or obtain and provide as needed 20. Consult pharmacy regarding effects of med's affecting mobility, cognition, and alternatives 21. Obtain physician order for PT if risk factors associated with mobility are present 22. Obtain physician order for OT as appropriate 23. Utilize diversional activities 24. Educate patient and patient passenger relations representative how to maintain a safe environment during visitation times (notify nurse prior to leaving bedside) 25. Consider appropriateness of medical or non-medical social consultant 26. Set up voiding schedule as appropriate (every 2 hours) Outcome: Progressing Note: Evaluation of progress towards goal: patient remains free from fall, call light in reach, will monitor. Problem: Pain Goal: Patient goal is pain score less than 4, able to rest, and participant in treatment plan as appropriate Description: INTERVENTIONS: 1. Encourage patient or legal passenger relations representative to report early pain and ask [...] per policy 9. Teach patient or legal passenger relations representative interventions for comforting Outcome: Progressing Note: [...] at the bedside 7. Instruct patient/ patient passenger relations representative about use of safety devices 8. Include patient/ patient passenger relations representative in decisions related to safety Outcome: Progressing Note: Evaluation of progress towards goal: Fall precautions in place. Patient remains free from injury. Problem: Moderate - High Risk Fall Score Description: [place] Fall Score of =/> 25 or indicated by [facility] Assessment Goal: Patient should be free from fall Description: Interventions: 1. [place] to environment 2. Hourly rounds addressing the [...] non-skid footwear 11. Teach patient and patient passenger relations representative to maintain environment for safety and [...] (cane, walker) within reach 19. Request patient passenger relations representative bring adaptive equipment/mobility aids from home or obtain and provide as needed 20. Consult pharmacy regarding effects of med's affecting mobility, cognition, and alternatives 21. Obtain physician order for PT if risk factors associated with mobility are present 22. Obtain physician order for OT as appropriate 23. Utilize diversional activities 24. Educate patient and patient passenger relations representative how to maintain a safe environment during visitation times (notify nurse prior to leaving bedside) 25. Consider appropriateness of medical or non-medical social consultant 26. Set up voiding schedule as appropriate (every 2 hours) Outcome: Progressing Note: Evaluation of progress towards goal: Bed locked and in lowest position. Personal items and call light within reach. Bed alarm set to highest setting. Patient remains free from injury at this time. DISCHARGE PLANNING NOTE Referral sent to [facility] (P# ; F# ) DISCHARGE PLANNING NOTE SW spoke to pt at bedside about discharge plans. Pt still had not made any SNF decisions but gave permission to speak to sister about choices. Phone call to Angela, SNF list reviewed with her and she would like a referral sent to [facility]. [facility] tasked for referral. SNF list sent to sisters phone. - SHANNA CORNELIUS 12/31/23 11:56 AM Problem: Pain Goal: Patient goal is pain score less than 4, able to rest, and participant in treatment plan as appropriate Description: INTERVENTIONS: 1. Encourage patient or legal passenger relations representative to report early pain and ask [...] per policy 9. Teach patient or legal passenger relations representative interventions for comforting Outcome: Progressing Note: [...] at the bedside 7. Instruct patient/ patient passenger relations representative about use of safety devices 8. Include patient/ patient passenger relations representative in decisions related to safety Outcome: [...] hygiene technique 7. Identify and instruct patient/patient passenger relations representative in use of appropriate isolation precautions for identified infection/symptoms 8. Provide and discuss with patient/patient passenger relations representative on educational MDRO sheet 9. Encourage and monitor nutritional status daily and consult resident services director if indicated 10. Implement neutropenic guidelines as needed 11. Review exposure to history of communicable disease and recent travel history on admission 12. Encourage annual influenza vaccine 13. Encourage pneumonia vaccine Outcome: Progressing Note: Evaluation of progress towards goal: pt afebrile-cont iv antibiotics Problem: Knowledge Deficit Goal: Patient/patient passenger relations representative demonstrates understanding of disease process, treatment [...] Description: INTERVENTIONS: 1. Encourage patient or legal passenger relations representative to report early pain and ask [...] per policy 9. Teach patient or legal passenger relations representative interventions for comforting Outcome: Progressing Note: [...] at the bedside 7. Instruct patient/ patient passenger relations representative about use of safety devices 8. Include patient/ patient passenger relations representative in decisions related to safety Outcome: [...] hygiene technique 7. Identify and instruct patient/patient passenger relations representative in use of appropriate isolation precautions for identified infection/symptoms 8. Provide and discuss with patient/patient passenger relations representative on educational MDRO sheet 9. Encourage and monitor nutritional status daily and consult resident services director if indicated 10. Implement neutropenic guidelines as needed 11. Review exposure to history of communicable disease and recent travel history on admission 12. Encourage annual influenza vaccine 13. Encourage pneumonia vaccine Outcome: Progressing Note: Evaluation of progress towards goal: [place] precautions maintained. Problem: Knowledge Deficit Goal: Patient/patient passenger relations representative demonstrates understanding of disease process, treatment [...] discharge planning process 5. Communicate referral to special education paraeducator as appropriate 6. Communicate referral to resident services director as appropriate 7. Collaborate with case management/social media marketer for discharge needs Outcome: Progressing Note: Evaluation [...] Score of =/> 25 or indicated by [facility] Assessment Goal: Patient should be free from fall Description: Interventions: 1. [place] to environment 2. Hourly rounds addressing the [...] non-skid footwear 11. Teach patient and patient passenger relations representative to maintain environment for safety and [...] (cane, walker) within reach 19. Request patient passenger relations representative bring adaptive equipment/mobility aids from home or obtain and provide as needed 20. Consult pharmacy regarding effects of med's affecting mobility, cognition, and alternatives 21. Obtain physician order for PT if risk factors associated with mobility are present 22. Obtain physician order for OT as appropriate 23. Utilize diversional activities 24. Educate patient and patient passenger relations representative how to maintain a safe environment during visitation times (notify nurse prior to leaving bedside) 25. Consider appropriateness of medical or non-medical social consultant 26. Set up voiding schedule as appropriate [...] Description: INTERVENTIONS: 1. Encourage patient or legal passenger relations representative to report early pain and ask [...] per policy 9. Teach patient or legal passenger relations representative interventions for comforting Outcome: Progressing Note: [...] at the bedside 7. Instruct patient/ patient passenger relations representative about use of safety devices 8. Include patient/ patient passenger relations representative in decisions related to safety Outcome: [...] hygiene technique 7. Identify and instruct patient/patient passenger relations representative in use of appropriate isolation precautions for identified infection/symptoms 8. Provide and discuss with patient/patient passenger relations representative on educational MDRO sheet 9. Encourage and monitor nutritional status daily and consult resident services director if indicated 10. Implement neutropenic guidelines as needed 11. Review exposure to history of communicable disease and recent travel history on admission 12. Encourage annual influenza vaccine 13. Encourage pneumonia vaccine Outcome: Progressing Note: Evaluation of progress towards goal: pt afebrile-cont to monitor Problem: Knowledge Deficit Goal: Patient/patient passenger relations representative demonstrates understanding of disease process, treatment [...] Description: INTERVENTIONS: 1. Encourage patient or legal passenger relations representative to report early pain and ask [...] per policy 9. Teach patient or legal passenger relations representative interventions for comforting Outcome: Progressing Note: [...] at the bedside 7. Instruct patient/ patient passenger relations representative about use of safety devices 8. Include patient/ patient passenger relations representative in decisions related to safety Outcome: Progressing Note: Evaluation of progress towards goal: no injury during shift Problem: Knowledge Deficit Goal: Patient/patient passenger relations representative demonstrates understanding of disease process, treatment [...] discharge planning process 5. Communicate referral to special education paraeducator as appropriate 6. Communicate referral to resident services director as appropriate 7. Collaborate with case management/social media marketer for discharge needs Outcome: Progressing Problem: Potential [...] Score of =/> 25 or indicated by [facility] Assessment Goal: Patient should be free from fall Description: Interventions: 1. [place] to environment 2. Hourly rounds addressing the [...] non-skid footwear 11. Teach patient and patient passenger relations representative to maintain environment for safety and [...] (cane, walker) within reach 19. Request patient passenger relations representative bring adaptive equipment/mobility aids from home or obtain and provide as needed 20. Consult pharmacy regarding effects of med's affecting mobility, cognition, and alternatives 21. Obtain physician order for PT if risk factors associated with mobility are present 22. Obtain physician order for OT as appropriate 23. Utilize diversional activities 24. Educate patient and patient passenger relations representative how to maintain a safe environment during visitation times (notify nurse prior to leaving bedside) 25. Consider appropriateness of medical or non-medical social consultant 26. Set up voiding schedule as appropriate [...] if indicated Outcome: Progressing Flowsheets (Taken 12/30/2023 2319) Chest Assessment: Chest expansion symmetrical Problem: Activity [...] Description: INTERVENTIONS: 1. Encourage patient or legal passenger relations representative to report early pain and ask [...] per policy 9. Teach patient or legal passenger relations representative interventions for comforting Outcome: Not Progressing [...] Description: INTERVENTIONS: 1. Encourage patient or legal passenger relations representative to report early pain and ask [...] per policy 9. Teach patient or legal passenger relations representative interventions for comforting Outcome: Progressing Note: [...] at the bedside 7. Instruct patient/ patient passenger relations representative about use of safety devices 8. Include patient/ patient passenger relations representative in decisions related to safety Outcome: [...] hygiene technique 7. Identify and instruct patient/patient passenger relations representative in use of appropriate isolation precautions for identified infection/symptoms 8. Provide and discuss with patient/patient passenger relations representative on educational MDRO sheet 9. Encourage and monitor nutritional status daily and consult resident services director if indicated 10. Implement neutropenic guidelines as needed 11. Review exposure to history of communicable disease and recent travel history on admission 12. Encourage annual influenza vaccine 13. Encourage pneumonia vaccine Outcome: Progressing Note: Evaluation of progress towards goal: continuing to monitor patient labs and vitals Problem: Knowledge Deficit Goal: Patient/patient passenger relations representative demonstrates understanding of disease process, treatment [...] Description: INTERVENTIONS: 1. Encourage patient or legal passenger relations representative to report early pain and ask [...] per policy 9. Teach patient or legal passenger relations representative interventions for comforting Outcome: Not Progressing [...] hygiene technique 7. Identify and instruct patient/patient passenger relations representative in use of appropriate isolation precautions for identified infection/symptoms 8. Provide and discuss with patient/patient passenger relations representative on educational MDRO sheet 9. Encourage and monitor nutritional status daily and consult resident services director if indicated 10. Implement neutropenic guidelines as [...] Description: INTERVENTIONS: 1. Encourage patient or legal passenger relations representative to report early pain and ask [...] per policy 9. Teach patient or legal passenger relations representative interventions for comforting Outcome: Progressing Note: [...] at the bedside 7. Instruct patient/ patient passenger relations representative about use of safety devices 8. Include patient/ patient passenger relations representative in decisions related to safety Outcome: [...] hygiene technique 7. Identify and instruct patient/patient passenger relations representative in use of appropriate isolation precautions for identified infection/symptoms 8. Provide and discuss with patient/patient passenger relations representative on educational MDRO sheet 9. Encourage and monitor nutritional status daily and consult resident services director if indicated 10. Implement neutropenic guidelines as needed 11. Review exposure to history of communicable disease and recent travel history on admission 12. Encourage annual influenza vaccine 13. Encourage pneumonia vaccine Outcome: Progressing Note: Evaluation of progress towards goal: IV antibiotics Problem: Knowledge Deficit Goal: Patient/patient passenger relations representative demonstrates understanding of disease process, treatment plan, medications, and discharge instructions Description: INTERVENTIONS 1. Complete learning assessment and assess knowledge base 2. Provide teaching at level of understanding 3. Provide teaching via preferred learning method(s) Outcome: Progressing Note: Evaluation of progress towards goal: poc discussed with patient, will monitor. Images from the original note were not included. [facility] [place] [facility] Operative Note DATE OF PROCEDURE: 12/27/23 PATIENT NAME: Hipolito Daniels SURGEON: Surgeon(s) and Role: * Hardeep Kiran MD - Primary ASSISTANTS: Dr. Seun Joshi MD STAFF: Certified Court Interpreter Primary: Tamara Calderon RN Scrub Person: ST Jenn Howe Assistant Resident: Seun Joshi MD PRE-OP DIAGNOSIS: Bilateral [...] entire procedure MD DENNIS General Surgery Resident, [facility] General Surgery Associated attestation [...] Description: INTERVENTIONS: 1. Encourage patient or legal passenger relations representative to report early pain and ask [...] per policy 9. Teach patient or legal passenger relations representative interventions for comforting Outcome: Progressing Note: [...] at the bedside 7. Instruct patient/ patient passenger relations representative about use of safety devices 8. Include patient/ patient passenger relations representative in decisions related to safety Outcome: [...] hygiene technique 7. Identify and instruct patient/patient passenger relations representative in use of appropriate isolation precautions for identified infection/symptoms 8. Provide and discuss with patient/patient passenger relations representative on educational MDRO sheet 9. Encourage and monitor nutritional status daily and consult resident services director if indicated 10. Implement neutropenic guidelines as needed 11. Review exposure to history of communicable disease and recent travel history on admission 12. Encourage annual influenza vaccine 13. Encourage pneumonia vaccine Outcome: Progressing Note: Evaluation of progress towards goal: pt with infected legs-cont iv antibiotics-getting debridement today Problem: Knowledge Deficit Goal: Patient/patient passenger relations representative demonstrates understanding of disease process, treatment [...] will go to snf at [facility] Problem: Pain Goal: Patient goal is pain score less than 4, able to rest, and participant in treatment plan as appropriate Description: INTERVENTIONS: 1. Encourage patient or legal passenger relations representative to report early pain and ask [...] per policy 9. Teach patient or legal passenger relations representative interventions for comforting Outcome: Progressing Note: [...] at the bedside 7. Instruct patient/ patient passenger relations representative about use of safety devices 8. Include patient/ patient passenger relations representative in decisions related to safety Outcome: [...] hygiene technique 7. Identify and instruct patient/patient passenger relations representative in use of appropriate isolation precautions for identified infection/symptoms 8. Provide and discuss with patient/patient passenger relations representative on educational MDRO sheet 9. Encourage and monitor nutritional status daily and consult resident services director if indicated 10. Implement neutropenic guidelines as needed 11. Review exposure to history of communicable disease and recent travel history on admission 12. Encourage annual influenza vaccine 13. Encourage pneumonia vaccine Outcome: Progressing Note: Evaluation of progress towards goal: No s/s of infection at this time, VSS, cont to monitor lab and vital signs Problem: Knowledge Deficit Goal: Patient/patient passenger relations representative demonstrates understanding of disease process, treatment [...] discharge planning process 5. Communicate referral to special education paraeducator as appropriate 6. Communicate referral to resident services director as appropriate 7. Collaborate with case management/social media marketer for discharge needs Outcome: Progressing Note: Evaluation [...] supplement as ordered 13. Collaborate with clinical resident services director 14. Include patient/ patient's passenger relations representative in decisions related to nutrition Outcome: [...] Score of =/> 25 or indicated by [facility] Assessment Goal: Patient should be free from fall Description: Interventions: 1. [place] to environment 2. Hourly rounds addressing the [...] non-skid footwear 11. Teach patient and patient passenger relations representative to maintain environment for safety and [...] (cane, walker) within reach 19. Request patient passenger relations representative bring adaptive equipment/mobility aids from home or obtain and provide as needed 20. Consult pharmacy regarding effects of med's affecting mobility, cognition, and alternatives 21. Obtain physician order for PT if risk factors associated with mobility are present 22. Obtain physician order for OT as appropriate 23. Utilize diversional activities 24. Educate patient and patient passenger relations representative how to maintain a safe environment during visitation times (notify nurse prior to leaving bedside) 25. Consider appropriateness of medical or non-medical social consultant 26. Set up voiding schedule as appropriate [...] supplement as ordered 13. Collaborate with clinical resident services director 14. Include patient/ patient's passenger relations representative in decisions related to nutrition Outcome: Progressing Note: Evaluation of progress towards goal: Additional Comments: Problem: Pain Goal: Patient goal is pain score less than 4, able to rest, and participant in treatment plan as appropriate Description: INTERVENTIONS: 1. Encourage patient or legal passenger relations representative to report early pain and ask [...] per policy 9. Teach patient or legal passenger relations representative interventions for comforting Outcome: Progressing Note: [...] at the bedside 7. Instruct patient/ patient passenger relations representative about use of safety devices 8. Include patient/ patient passenger relations representative in decisions related to safety Outcome: [...] hygiene technique 7. Identify and instruct patient/patient passenger relations representative in use of appropriate isolation precautions for identified infection/symptoms 8. Provide and discuss with patient/patient passenger relations representative on educational MDRO sheet 9. Encourage and monitor nutritional status daily and consult resident services director if indicated 10. Implement neutropenic guidelines as needed 11. Review exposure to history of communicable disease and recent travel history on admission 12. Encourage annual influenza vaccine 13. Encourage pneumonia vaccine Outcome: Progressing Note: Evaluation of progress towards goal: pt afebrile-cont iv antibiotics Problem: Knowledge Deficit Goal: Patient/patient passenger relations representative demonstrates understanding of disease process, treatment [...] on 12/25/2023 with Cellulitis PCP SYDNEY GRIFFITH, This CN met with patient, introduced self and explained role. Noted readmission risk assessment completed upon admission per RN. Past Medical History: Diagnosis Date Angina pectoris ([facility] Arthritis Atrial fibrillation ([facility]) Chronic kidney disease kidney stones COPD (chronic obstructive pulmonary disease) ([facility]) Coronary artery disease Diabetes mellitus type 2, controlled ([facility]) Hyperlipidemia Hypertension Migraines Myocardial infarction ([facility]) x2 Obesity Pneumonia Shortness of breath Visual [...] Yes List Provided: Yes [facility] List Provided: [facility] Visiting Physician/Provider: Sydney Nolan DO Initial DC Assessment Completed: Yes Patient Goals: Patient/Caregiver Goals Patient/Caregiver Goals: [facility] Skilled Nuring Care: Skilled Care (Short Term) Goals: Goals Patient Stated Discharge to SNF (pt-stated) Evaluation of progress towards goal: Discharge to SNF. List given. Awaiting choices, acceptance & precert. Problem: Pain Goal: Patient goal is pain score less than 4, able to rest, and participant in treatment plan as appropriate Description: INTERVENTIONS: 1. Encourage patient or legal passenger relations representative to report early pain and ask [...] per policy 9. Teach patient or legal passenger relations representative interventions for comforting Outcome: Progressing Note: [...] at the bedside 7. Instruct patient/ patient passenger relations representative about use of safety devices 8. Include patient/ patient passenger relations representative in decisions related to safety Outcome: [...] hygiene technique 7. Identify and instruct patient/patient passenger relations representative in use of appropriate isolation precautions for identified infection/symptoms 8. Provide and discuss with patient/patient passenger relations representative on educational MDRO sheet 9. Encourage and monitor nutritional status daily and consult resident services director if indicated 10. Implement neutropenic guidelines as needed 11. Review exposure to history of communicable disease and recent travel history on admission 12. Encourage annual influenza vaccine 13. Encourage pneumonia vaccine Outcome: Progressing Note: Evaluation of progress towards goal: Monitoring labs and vitals Problem: Knowledge Deficit Goal: Patient/patient passenger relations representative demonstrates understanding of disease process, treatment [...] Score of =/> 25 or indicated by [facility] Assessment Goal: Patient should be free from fall Description: Interventions: 1. [place] to environment 2. Hourly rounds addressing the [...] non-skid footwear 11. Teach patient and patient passenger relations representative to maintain environment for safety and [...] (cane, walker) within reach 19. Request patient passenger relations representative bring adaptive equipment/mobility aids from home or obtain and provide as needed 20. Consult pharmacy regarding effects of med's affecting mobility, cognition, and alternatives 21. Obtain physician order for PT if risk factors associated with mobility are present 22. Obtain physician order for OT as appropriate 23. Utilize diversional activities 24. Educate patient and patient passenger relations representative how to maintain a safe environment during visitation times (notify nurse prior to leaving bedside) 25. Consider appropriateness of medical or non-medical social consultant 26. Set up voiding schedule as appropriate (every 2 hours) Outcome: Progressing Note: Evaluation of progress towards goal: Safety maintained. Call light within reach. Bed locked. Side rails up. Area clear of hazards. Images from the original note were not included. [facility] [place] [facility] 58 y.o. male admitted on 12/25 with bilateral venous stasis ulcers. Wound care consulted for management of bilateral LE wounds. Patient evaluated and preliminary wound care orders placed. Patient to be evaluated by wound care team today Hansel Carrasco MD PGY2 documented in this encounter [facility] 01-07-2024 Hospital course Narrative Images from the original note were not included. [facility]IC[facility] Eldon Green, MD Nadege Richards, MD Mat Davis, MD Jemima Lewis, MD Bob Ball, MD Francheska Felipe, MD Roger Loja, MD Delmy Roger, MD Jayda Almendarez, RESPIRATORY CLINICIAN Susan Ramírez, [facility] Sushila Sidhu, [facility] Meche Quiñonez, [facility] Nilda De La Rosa, [facility] Antonina Boo, [facility] Arely Cadena, [facility] Jie Alexandre, [facility] Con Garcia, [facility] Annalisa Hagan, [facility] Sushma Monzon, [facility] Jocelynn Chavis, [facility] Yanet Cortes, [facility] Carole Nielson, [facility] Kayce Callaway, [facility] Sushma Wong, [facility] Thalia Maher, [facility] Bipin Turner, [facility] Medicine Discharge Summary Patient: Hipolito Daniels Date of : 1965 Room: [place] [address] Encounter date: 01/07/24 Hospital Day: 14 DATE OF ADMISSION: 12/25/2023 DATE OF DISCHARGE:01/07/2024 DISCHARGE DIAGNOSES Principal Problem: Cellulitis Active Problems: Chronic atrial fibrillation (CMS-HCC) Diastolic heart failure ([facility]-HCC) Essential hypertension Mixed hyperlipidemia Type 2 diabetes mellitus with obesity (CMS-HCC) Venous ulcer of left lower extremity without varicose veins (CMS-HCC) Venous ulcer of right lower extremity without varicose veins (CMS-HCC) Open wound of both lower extremities [facility] Vascular surgery Infectious disease Cardiology PCP: SYDNEY GRIFFITH, PROCEDURES 12/27/2023 Surgeon Role Hardeep Kiran MD Primary Procedure Laterality Anesthesia EXCISIONAL DEBRIDEMENT LOWER LEGS Bilateral General HOSPITAL COURSE SUMMARY Per HPI: Hipolito Daniels is a 58 y.o. male who presented to [facility] ED via EMS with complaint [...] was made to transfer the patient to [facility] for vascular surgery evaluation and Hyperbaric treatment. Patient was subsequently transferred to [facility] the evening of 12/25 for higher level [...] data in the 24 hours ending 01/07/24 5152 Constitutional: General: He is not in acute [...] knee or ankle joints on these large [id number] images. IMPRESSION: No acute bony abnormalities demonstrated. [...] on 12/23/2023 9:37 AM DISCHARGE INSTRUCTION Disposition: [facility] facility Condition: Stable Activity: activity as tolerated [...] this patient. PATY Schreiber 01/07/2024 6:54 PM [facility] 7[facility] (all facilities): Message rounding KHAI in [email or web address] or page through [email or web address]. 7PM-7AM ([facility], [facility] Psychiatry and Inpatient Rehab): Page Night KHAI, [phone]. 7PM-7AM ([place], [place], [place], [place] and [facility] Rehab): Page on-call KHAI, . PATY Schreiber 01/07/24 1907 Physician Attestation I, Mat Davis MD, personally [...] plan as noted. documented in this encounter [employer] 01-07-2024 History of Present illness Narrative Pharmacokinetic [...] follow patient's clinical progress daily. Geetha Rodriguez [facility] Ext [id number] Images from the original note were not [...] from last 7 days Lab Units 01/06/24 0801/06/2440901/05/24 2117 01/05/24 1628 01/05/24 1128 01/05/24 0828 01/05/24 0501/04/24 0730 01/04/24 0433 01/03/24 0701/03/24 0505 01/02/24 0719 01/02/24443 POTASSIUM mmol/L -- 4.2 -- -- -- [...] Results from last 7 days Lab Units 01/06/2440901/05/2451101/04/24 04301/03/24 0505 01/02/24443 INR 2.1* 2.1* 2.4* 2.7* 2.8* PROTIME sec 23.3* 24.1* 27.4* 29.9* 31.9* Results from last 7 days Lab Units 01/06/2440901/05/24 0501/04/24 04301/03/24 0505 01/02/24443 ALT U/L 61* 72* 77* 76* 81* [...] Problem: Cellulitis Active Problems: Chronic atrial fibrillation ([facility]-HCC) Diastolic heart failure ([facility]-HCC) Essential hypertension Mixed hyperlipidemia Type 2 diabetes mellitus with obesity ([facility]) Venous ulcer of left lower extremity without varicose veins ([facility]-HCC) Venous ulcer of right lower extremity without varicose veins ([facility]-HCC) Open wound of both lower extremities Lymphedema Wound Plan Dressing:continue current dressing changes Antibiotics: per ID Studies/Testing: as above Medical Management: per primary service Wound care will continue to follow while inpatient. PATY SMITH 01/06/24 [facility] M-F 8a-3p Secure Chat or Page [phone] PATY Smith 01/06/24 1422 Images from the original note were not included. [facility] Eldon Green, MD Nadege Richards, MD Mat Davis, MD Jemima Lewis, MD Bob Ball, MD Francheska Felipe, MD Roger Loja, MD Delmy Roger, MD Jayda Almendarez, RESPIRATORY CLINICIAN Susan Ramírez, [facility] Sushila Sidhu, [facility] Meche Quiñonez, [facility] Nilda De La Rosa, [facility] Antonina Boo, [facility] Arely Cadena, [facility] Jie Alexandre, [facility] Con Garcia, RESPIRATORY CLINICIAN Annalisa Hagan, [facility] Sushma Monzon, [facility] Jocelynn Chavis, [facility] Yanet Cortes, [facility] Carole Nielson, [facility] Kayce Callaway, [facility] Sushma Wong, [facility] Thalia Maher, RESPIRATORY CLINICIAN Bipin Turner, [facility] Medicine Progress Note Patient: Hipolito Daniels Date of : 1965 Room: [place] [address] PCP: SYDNEY GRIFFITH DO Admission date: 12/25/2023 [...] Intake/Output Summary (Last 24 hours) at 01/06/2024 1738 Last data filed at 01/05/20241999 Gross per [...] - 1.1 Comprehensive metabolic panel Collection Time: 02/12/24 4:10 AM Result Value Ref Range Sodium [...] Chronic atrial fibrillation (CMS-HCC) Diastolic heart failure ([facility]-HCC) Essential hypertension Mixed hyperlipidemia Type 2 diabetes mellitus with obesity ([facility]-HCC) Venous ulcer of left lower extremity without varicose veins (CMS-HCC) Venous ulcer of right lower extremity without varicose veins ([facility]-HCC) Open wound of both lower extremities Lymphedema [...] EPC's and Coumadin DC Planning: Pending Precert CAROLE NIELSON, X [employer] EQUIPMENT MECHANIC-RESPIRATORY CLINICIAN, 01/06/2024 5:39 PM [facility] Hospitalists 7AM-7PM (all facilities): Message rounding KHAI in [email or web address] or page through PokitDok. 7PM-7AM ([facility], [facility] Psychiatry and Inpatient Rehab): Page Night KHAI, [phone]. 7PM-7AM ([place] [place], [place], [place] and [facility] Rehab): Page on-call KHAI, . This note was completed using a voice senior medical transcriptionist system. Every effort is made to ensure accuracy, however inadvertent errors may occur. Carole Nielson, STEPHANIE-RESPIRATORY CLINICIAN 01/06/24 1432 Physician Attestation I, Mat Davis MD, personally [...] clinical progress daily. Geetha Rodriguez RPH Ext [id number] Images from the original note were not included. [facility] MEDICINE [facility] HOSPITALISTS MD Nadege Brunner, MD Mat Davis, MD Jemima Lewis, MD Bob Ball, MD Francheska Felipe, MD Roger Loja, MD Delmy Roger, MD Jayda Almendarez, ERICKA Ramírez, ERICKA Sidhu, [facility] Meche Quiñonez, [facility] Nilda De La Rosa, [facility] Antonina Boo, RESPIRATORY CLINICIAN Arely Cadena, RESPIRATORY CLINICIAN Jie Alexandre, RESPIRATORY CLINICIAN Con Garcia, ERICKA Hagan, ERICKA Monzon, RESPIRATORY CLINICIAN Jocelynn Chavis, [facility] Yanet Cortes, [facility] Carole Nielson, [facility] Kayce Callaway, ERICKA Wong, [facility] Thalia Maher, ERICKA Turner, [facility] Hospital Medicine Progress Note Patient: Hipolito Daniels Date of : 1965 Room: B756/01 PCP: SYDNEY GRIFFITH DO Admission date: 12/25/2023 [...] PT/OT to evaluate and treat. DC planning: [facility] PATY Reyes 01/05/2024 9:[address] [facility] Hospitalists 7AM-7PM (all facilities): Message rounding HKAI in [email or web address] or page through PokitDok. 7PM-7AM ([facility], [facility] Psychiatry and Inpatient Rehab): Page Night KHAI, [phone]. 7PM-7AM ([place] [place], [place], [place] and [facility] Rehab): Page on-call KHAI, . PATY Reyes 01/05/24 1023 I have seen and evaluated [...] clinical progress daily. Ke Kamara PharmD Ext [id number] Images from the original note were not included. [facility] MEDICINE [facility] HOSPITALISTS Eldon Green, MD Nadege Richards, MD Mat Davis, MD Jemima Lewis, MD Bob Ball, MD Francheska Felipe, MD Roger Loja, MD Delmy Roger, MD Jayda Almendarez, RESPIRATORY CLINICIAN Susan Ramírez, RESPIRATORY CLINICIAN Sushila Sidhu, RESPIRATORY CLINICIAN Meche Quiñonez, [facility] Nilda De La Rosa, [facility] Antonina Baumanngonzalez, [facility] Arely Surinder, [facility] Jie Kimantonietta, [facility] Con Jose, [facility] Annalisa Bentley, RESPIRATORY CLINICIAN Sushma Na, [facility] Jocelynn Chavis, RESPIRATORY CLINICIAN Yanet Cortes, [facility] Carole Nielson, [facility] Kayce Callaway, [facility] Sushma Wong, [facility] Thalia Maher, [facility] Bipin Turner, [facility] Hospital Medicine Progress Note Patient: Hipolito Daniels Date of : 1965 Room: [place] [address] PCP: SYDNEY GRIFFITH DO Admission date: 12/25/2023 [...] Problem: Cellulitis Active Problems: Chronic atrial fibrillation ([facility]) Diastolic heart failure ([facility]) Essential hypertension Mixed hyperlipidemia Type 2 diabetes mellitus with obesity ([facility]) Venous ulcer of left lower extremity without varicose veins ([facility]) Venous ulcer of right lower extremity without varicose veins ([facility]) Open wound of both lower extremities Lymphedema [...] PT/OT to evaluate and treat. DC planning: [facility] Jie Alexandre APRN-ERICKA 01/04/2024 9:[address] [facility] Hospitalists 7AM-7PM (all facilities): Message rounding KHAI in [email or web address] or page through PokitDok. 7PM-7AM ([facility], [facility] Psychiatry and Inpatient Rehab): Page Night KHAI, [phone]. 7PM-7AM ([place] [place], [place], [place] and [facility] Rehab): Page on-call KHAI, . Jie Alexandre, X RAY EQUIPMENT MECHANIC-RESPIRATORY CLINICIAN 01/04/24 0917 I have seen and evaluated the patient, [...] plenty of fluids Dr Delmy Roger MD, [facility] 01/04/2024 6:44 PM Pharmacokinetic Consult - Follow [...] information: Patient's home warfarin regimen is 5mg ,, and 7.5mg all other days Plan RX Anticoag Warfarin IP dose plan: Continue current warfarin regimen of 3 mg daily. Pharmacist will continue to follow patient's clinical progress daily. Ke Kamara PharmD Ext [id number] Images from the original note were not [...] Site Assessment Edema;Excoriated;Moist;Painful;P ink;Red 01/02/242239 Candi-wound Assessment Intact;Painful;[place];Edema 01/02/242239 Wound Length (cm) 13.5 cm 12/23/23 1300 Closure Adhesive bandage 12/29/23 1600 Drainage Description Serosanguineous;Odor Foul 12/29/23 1600 Drainage Amount Moderate 12/29/23 1600 Treatments Dakins solution 01/02/242239 Dressing Type Abdominal dressing;Dry Dressing;Gauze Rolled/Kerlix;Moist to moist 01/02/242239 Dressing Changed Changed 01/03/2446 Dressing Status Clean;Dry;Intact 01/02/242239 Pressure Injury Stage U 12/23/23 1300 Wound 12/23/23 2 Leg Right;Anterior (Active) Wound Image 01/01/2415 Site Assessment Edema;Fragile;Moist;Painful;[place] ;Red 01/02/242239 Candi-wound Assessment Excoriated;Fragile;Edema;Painful ;[place];Red 01/02/242239 Wound Length (cm) 30 cm 12/23/23 1300 Closure Adhesive bandage 12/29/23 1600 Drainage Description Serosanguineous 12/29/23 1600 Drainage Amount Large Copious 12/29/23 1600 Treatments Dakins solution 01/02/242239 Dressing Type Abdominal dressing;Dry Dressing;Gauze Rolled/Kerlix;Moist to moist 01/02/242239 Dressing Changed Changed 01/03/2446 Dressing Status Clean;Dry;Intact 01/02/242239 Wound Bed Slough (%) 75% to 100% 12/23/23 1300 Wound Bed Eschar (%) 25% to 50% 12/23/23 1300 Pressure Injury Stage U 12/23/23 1300 Wound 12/23/23 3 Leg Left;Posterior (Active) Wound Image 01/01/2415 Site Assessment Edema;Excoriated;Moist;Painful;P ink;Red;Black 01/02/242239 Candi-wound Assessment Excoriated;Painful;[place] 01/02/242239 Wound Length (cm) 11 cm 12/29/23 [...] Wound Image 01/01/24 0515 Site Assessment Black;Edema;Excoriated;Painful;M oist;[place];Red 01/02/242239 Candi-wound Assessment Fragile;Painful;[place] 01/02/242239 Wound Length (cm) 11 cm 12/29/23 [...] Changed Changed 01/03/24 0846 Dressing Status Clean;Dry;Intact 01/02/24 2240 Studies Reviewed: Labs Reviewed: Results from last 7 days Lab Units 01/03/24 05001/02/2444301/01/2444112/31/23 0506 12/30/23 0503 WBC X10E9/L 7.8 7.8 9.8 9.6 8.4 HEMOGLOBIN g/dL 10.7* 10.6* 11.5* 12.7* 12.2* HEMATOCRIT % 31.8* 31.7* 33.9* 37.5* 36.0* MCV fL 94 94 93 93 93 PLATELETS X10E9/L 198 167 181 205 159 Results from last 7 days Lab Units 01/03/24 1141 01/03/24 0705 01/03/24 0505 01/02/24 21101/02/24 1710 01/02/24 0719 01/02/2444301/01/24 0731 01/01/24 04412/31/23 0708 12/31/23 0506 12/30/23 0843 12/30/23 0503 [...] from last 7 days Lab Units 01/03/24 05001/02/24443 12/07/24 0442 12/31/23 0506 12/30/23 0503 INR 2.7* 2.8* 2.5* 2.2* 2.1* PROTIME sec 29.9* 31.9* 27.7* 24.4* 23.6* Results from last 7 days Lab Units 01/03/24 0505 01/02/24 0444 01/01/24 0442 12/31/23 0506 12/30/23 0503 ALT U/L 76* 81* [...] Problem: Cellulitis Active Problems: Chronic atrial fibrillation ([facility]) Diastolic heart failure ([facility] Essential hypertension Mixed hyperlipidemia Type 2 diabetes mellitus with obesity ([facility]) Venous ulcer of left lower extremity without varicose veins ([facility]) Venous ulcer of right lower extremity without varicose veins ([facility]) Open wound of both lower extremities Lymphedema [...] Line M-F 8a-3p Secure Chat or Page [phone] PATY Smith 01/03/24 6003 Pharmacokinetic Consult - Follow Up Warfarin Dosing [...] clinical progress daily. Mecca Jacinto RPH Ext [id number] Images from the original note were not included. [facility] MEDICINE [facility] HOSPITALISTS MD Nadege Brunner, MD Mat Davis, MD Jemima Lewis, MD Bob Ball, MD Francheska Felipe, MD Roger Loja, MD Delmy Roger, MD Jayda Almendarez, RESPIRATORY CLINICIAN Susan Ramírez, RESPIRATORY CLINICIAN Sushila Sidhu, RESPIRATORY CLINICIAN Meche Quiñonez, RESPIRATORY CLINICIAN Nilda De La Rosa, RESPIRATORY CLINICIAN Antonina Boo, RESPIRATORY CLINICIAN Arely Cadena, RESPIRATORY CLINICIAN Jie Alexandre, RESPIRATORY CLINICIAN Con Garcia, RESPIRATORY CLINICIAN Annalisa Hagan, RESPIRATORY CLINICIAN Sushma Monzon, RESPIRATORY CLINICIAN Jocelynn Chavis, RESPIRATORY CLINICIAN Yanet Cortes, RESPIRATORY CLINICIAN Carole Nielson, RESPIRATORY CLINICIAN Kayce Callaway, RESPIRATORY CLINICIAN Sushma Wong, RESPIRATORY CLINICIAN Thalia Maher, RESPIRATORY CLINICIAN Bipin Truner, RESPIRATORY CLINICIAN Hospital Medicine Progress Note Patient: Hipolito Daniels Date of : 1965 Room: [facility]/ PCP: SYDNEY GRIFFITH DO Admission date: 12/25/2023 [...] Problem: Cellulitis Active Problems: Chronic atrial fibrillation ([facility]) Diastolic heart failure ([facility]) Essential hypertension Mixed hyperlipidemia Type 2 diabetes mellitus with obesity ([facility]) Venous ulcer of left lower extremity without varicose veins ([facility]) Venous ulcer of right lower extremity without varicose veins ([facility]) Open wound of both lower extremities Lymphedema [...] PT/OT to evaluate and treat. DC planning: [facility] Jie Alexandre, STEPHANEI-ERICKA 01/03/2024 8:45 AM [facility] Medicine - [facility] Hospitalists 7AM-7PM (all facilities): Message rounding KHAI in [email or web address] or page through PokitDok. 7PM-7AM ([facility], [facility] Psychiatry and Inpatient Rehab): Page Night KHAI, [phone]. 7PM-7AM ([place] [place], [place], [place] and [facility] Rehab): Page on-call KHAI, . Jie Alexandre, X RAY EQUIPMENT MECHANIC-RESPIRATORY CLINICIAN 01/03/24 2790 I have seen and evaluated the patient, [...] clinical progress daily. Mecca Jacinto RPH Ext [id number] Images from the original note were not included. [facility] HOSPITALISTS Eldon Green, MD Nadege Richards, MD Mat Davis, MD Jemima Lewis, MD Bob Ball, MD Francheska Felipe, MD Roger Loja, MD Delmy Roger, MD Jayda Almendarez, RESPIRATORY CLINICIAN Susan Darrell, RESPIRATORY CLINICIAN Sushila Thea, RESPIRATORY CLINICIAN Meche Garywinston, [facility] Nilda De La Rosa, [facility] Antonina Baumanngonzalez, RESPIRATORY CLINICIAN Arely Surinder, RESPIRATORY CLINICIAN Jie Alexandre, RESPIRATORY CLINICIAN Con Garcia, RESPIRATORY CLINICIAN Annalisa Hagan, RESPIRATORY CLINICIAN Sushma Mnozon, RESPIRATORY CLINICIAN Jocelynn Chavis, RESPIRATORY CLINICIAN Yanet Cortes, [facility] Carole iNelson, [facility] Kayce Callaway, [facility] Sushma Wong, [facility] Thalia Maher, [facility] Bipin Turner, [facility] Hospital Medicine Progress Note Patient: Hipolito Daniels Date of : 1965 Room: [place] [address] PCP: SYDNEY GRIFFITH DO Admission date: 12/25/2023 [...] Intake/Output Summary (Last 24 hours) at 01/02/2024 0923 Last data filed at 01/02/2024 0100 Gross [...] Problem: Cellulitis Active Problems: Chronic atrial fibrillation ([facility]) Diastolic heart failure ([facility]) Essential hypertension Mixed hyperlipidemia Type 2 diabetes mellitus with obesity ([facility]) Venous ulcer of left lower extremity without varicose veins ([facility]) Venous ulcer of right lower extremity without varicose veins ([facility]) Open wound of both lower extremities Lymphedema [...] PT/OT to evaluate and treat. DC planning: [facility] Jie Alexandre, X RAY EQUIPMENT MECHANIC-RESPIRATORY CLINICIAN 01/02/2024 9:23 AM [facility] Hospitalists 7AM-7PM (all facilities): Message rounding KHAI in [email or web address] or page through PokitDok. 7PM-7AM ([facility], [facility] Psychiatry and Inpatient Rehab): Page Night KHAI, [phone]. 7PM-7AM ([place] [place], [place], [place] and [facility] Rehab): Page on-call KHAI, . Jie StacySTEPHANIE mane-RESPIRATORY CLINICIAN 01/02/24 1329 I have seen and evaluated the patient, [...] Units 01/01/24 0442 12/31/23 0506 12/30/23 0503 SODIUM mmol/L 144 142 [...] 650 mg oral Q4H PRN Meche Quiñonez APRN-RESPIRATORY CLINICIAN alum-mag hydroxide-simeth (MAALOX) 200-200-20 mg/5 mL suspension 30 mL 30 mL oral [facility] PATY [facility] atorvastatin (LIPITOR) tablet 80 mg 80 mg oral Daily PATY Schreiber 80 mg at 12/31/23 2148 betamethasone (augmented) (DIPROLENE) 0.05 % cream 1 Application 1 Application topical BID Jie AlexandrePATY 1 Application at 01/01/24 0832 dextrose (GLUTOSE) [...] Francheska Felipe MD 100 mg at 12/31/23 214 midodrine (PROAMATINE) tablet 10 mg 10 mg [...] (per nursing flow sheets): Skin Color: Pale (01/01/24799) Skin Temp: Warm; Dry (01/01/24799) Wound (per nursing flow sheets): Wound 12/23/23 1 Leg Left;Anterior-Site Assessment: Bleeding; Moist; Painful; [place]; Red (01/01/24799) Wound 12/23/23 2 Leg Right;Anterior-Site Assessment: Fragile; Moist; Painful; Red (01/01/24799) Wound 12/23/23 3 Leg Left;Posterior-Site Assessment: Bleeding; Brown; Moist; Red; Painful (01/01/24 0515) [REMOVED] Wound 12/23/23 4 Leg Right;Lateral-Site Assessment: Unable to assess (surgical dressing in place) (12/27/235) Wound 12/27/23 Incision Leg Inferior-Site Assessment: Bleeding; Brown; Moist; Painful; Red; Yellow; Exposed tendon (01/01/24799) Gastrointestinal (per nursing flow sheets): Abdomen Assessment: Nondistended; Rounded; Obese (01/01/24799) Last BM Date: 12/31/23 (01/01/24799) Passing Flatus: Yes (12/31/23729) RUQ Bowel Sounds: Present (12/31/23729) LUQ Bowel Sounds: Present (12/31/23729) RLQ Bowel Sounds: Present (12/31/23729) LLQ Bowel Sounds: Present (12/31/23 0730) GI Symptoms: Constipation (12/30/23 0400) Edema (per nursing flow sheets): RLE Edema: +2 (01/01/24 0800) LLE Edema: +2 (01/01/24 0800) Intake/ Output Last 24 hrs: Intake/Output Summary [...] House Supplement 8 oz Supplement Frequency: TID 01/01/24 1445 12/27/232121 Adult diet Regular Texture; Consistent Carb 210 grams (1800 kcal) Diet effective now Question Answer Comment Diet Type: Regular Texture Carbohydrate Modifiers: Consistent Carb 210 grams (1800 kcal) 12/27/23 21212/27/23 1231 Adult nutrition supplements Continuous Comments: Tono [...] lb 6.5 oz) Current Weight: 109.5 kg (01/01, bed scale) Admit Weight: 110.7 kg (12/26, Bed Scale) [place] Body Weight: 78.2 kg Percent [place] Body Weight: >100% Weight Changes: Weight loss since admit; beginning to trend upward. Patient reported 40 lb weight loss over 1 month. Body Mass Index: Body mass index is 33.68 kg/m . BMI Category: Obese class 1 (30.00- 34.99) Comparative Standards: Estimated Energy Needs: 7375-4617 kcals daily. Method and weight used: 30-35 kcal/kg IBW (78.2 kg). Estimated Protein Needs: 117-196 grams daily. Method and weight used: 1.5-2.5 g protein/kg IBW. Estimated Fluid Needs: 3188-9091 ml daily. Method weight used: 30-35 ml/kg [...] consult for specific nutrition needs. MOE Ren, RD, LD Clinical Dietitian Direct Line Images from the original note were not included. [facility] HOSPITALISTS MD Nadege Brunner MD Kaleem Gill, MD Sneha Kommoori, MD Ruqiyya Muhammad, MD Kanchan Pillai, MD Roger Loja, MD Delmy Roger, MD Jayda Almendarez, RESPIRATORY CLINICIAN Susan Darrell, RESPIRATORY CLINICIAN Sushila Thea, RESPIRATORY CLINICIAN Meche Da Silvakenji, RESPIRATORY CLINICIAN Nilda De La Rosa, RESPIRATORY CLINICIAN Antonina Baumannisraelalina, RESPIRATORY CLINICIAN Arely Cadena, RESPIRATORY CLINICIAN Jie Alexandre, RESPIRATORY CLINICIAN Con Garcia, RESPIRATORY CLINICIAN Annalisa Hagan, RESPIRATORY CLINICIAN Sushma Na, RESPIRATORY CLINICIAN Jocelynn Partha, RESPIRATORY CLINICIAN Yanet Jrkelechi, RESPIRATORY CLINICIAN Carole [place], RESPIRATORY CLINICIAN Kayce Nilton, RESPIRATORY CLINICIAN Sushma Marvin, RESPIRATORY CLINICIAN Thalia Maher, RESPIRATORY CLINICIAN Bipin Johnny, [facility] Medicine Progress Note Patient: Hipolito Daniels [...] Problem: Cellulitis Active Problems: Chronic atrial fibrillation ([facility]) Diastolic heart failure ([facility]) Essential hypertension Mixed hyperlipidemia Type 2 diabetes mellitus with obesity ([facility]) Venous ulcer of left lower extremity without varicose veins ([facility]) Venous ulcer of right lower extremity without varicose veins ([facility]) Open wound of both lower extremities Lymphedema [...] PT/OT to evaluate and treat. DC planning: [facility] Jie Alexandre, X RAY EQUIPMENT MECHANIC-RESPIRATORY CLINICIAN 01/01/2024 10:01 AM [facility] Hospitalists 7AM-7PM (all facilities): Message rounding KHAI in [email or web address] or page through PokitDok. 7PM-7AM ([facility], [facility] Psychiatry and Inpatient Rehab): Page Night KHAI, [phone]. 7PM-7AM ([place], [place], [place] and [facility] Rehab): Page on-call KHAI, . Jie Baldomero, X RAY EQUIPMENT MECHANIC-RESPIRATORY CLINICIAN 01/01/24 7555 I have seen and evaluated the patient, [...] included. Division of Infectious Diseases -progress Note [facility] - Academic Team 1 During Business Hours: Please use [email or web address] for communication. After Hours: Please call for [...] Past Medical History: Diagnosis Date Angina pectoris ([facility]) Arthritis Atrial fibrillation ([facility] Chronic kidney disease kidney stones COPD (chronic obstructive pulmonary disease) ([facility]) Coronary artery disease Dental disease Diabetes mellitus type 2, controlled ([facility]) Hyperlipidemia Hypertension Migraines Myocardial infarction ([facility]) x2 Obesity Pneumonia Rash Shortness of breath Visual impairment glasses Past Surgical History: Past Surgical History: Procedure Laterality Date ABDOMINAL SURGERY complete abdominoplasty APPENDECTOMY CARDIAC CATHETERIZATION LAD stents x2 CARDIAC ELECTROPHYSIOLOGY MAPPING AND ABLATION CHOLECYSTECTOMY EXCISIONAL DEBRIDEMENT LOWER LEGS Bilateral 12/27/2023 Performed by Hardeep Kiran MD at [facility] HERNIA REPAIR KNEE ARTHROSCOPY Bilateral LITHOTRIPSY MANIPULATION SHOULDER Left 06/19/2018 Performed by Jr Kendy Renee DO at [facility] TONSILLECTOMY Medications: ampicillin-sulbactam (UNASYN) IV, 3,000 [...] min Stress: No Stress Concern Present (12/23/2023) [place] [employer] - Occupational Stress Questionnaire Feeling of Stress : Only a little Social Connections: Socially Isolated (12/23/2023) Social Connection and Isolation Panel [NHANES] Frequency of Communication with Friends and Family: Three times a week Frequency of Social Gatherings with Friends and Family: Three times a week Attends Baptism Services: Never Active Member of Clubs or [...] questions. Marianna Holley PGY1 Internal Medicine Resident [facility] From 7AM-7PM: Please use [email or web address] for communication. From 7PM-7AM: Please call for [...] this patient. Leida Porter MD, CMQ, AAHIVS [facility] Infectious Diseases Personal Pager: [phone] Images from the original note were not included. [facility] HOSPITALISTS MD Nadege Brunner MD Kaleem Gill, MD Sneha Kommoori, MD Ruqiyya Ball, MD Francheska Felipe, MD Roger Loja, MD Delmy Roger, MD Jayda Almendarez, RESPIRATORY CLINICIAN Susan Ramírez, RESPIRATORY CLINICIAN Sushila Sidhu, RESPIRATORY CLINICIAN Meche Quiñonez, RESPIRATORY CLINICIAN Nilda De La Rosa, RESPIRATORY CLINICIAN Antonina Boo, RESPIRATORY CLINICIAN Arely Cadena, RESPIRATORY CLINICIAN Jie Alexandre, RESPIRATORY CLINICIAN Con Garcia, RESPIRATORY CLINICIAN Annalisa Moyrange, RESPIRATORY CLINICIAN Sushma Na, RESPIRATORY CLINICIAN Jocelynn Partha, RESPIRATORY CLINICIAN Yanet Cortes, RESPIRATORY CLINICIAN Carole Nielson, RESPIRATORY CLINICIAN Kayce Callaway, RESPIRATORY CLINICIAN Sushma Marvin, RESPIRATORY CLINICIAN Thalia Maher, RESPIRATORY CLINICIAN Bipin Turner, [facility] Medicine Progress Note Patient: Hipolito Daniels Date of : 1965 [facility] PCP: SYDNEY GRIFFITH DO Admission date: 12/25/2023 [...] Problem: Cellulitis Active Problems: Chronic atrial fibrillation ([facility]) Diastolic heart failure ([facility]) Essential hypertension Mixed hyperlipidemia Type 2 diabetes mellitus with obesity ([facility]) Venous ulcer of left lower extremity without varicose veins ([facility]) Venous ulcer of right lower extremity without varicose veins ([facility]) Open wound of both lower extremities Lymphedema [...] PT/OT to evaluate and treat. DC planning: [facility] Jie Alexandre APRN-ERICKA 12/31/2023 9:52 AM [facility] Medicine - [facility] Hospitalists 7AM-7PM (all facilities): Message rounding KHAI in [email or web address] or page through [employer]Dok. 7PM-7AM ([facility], [facility] Psychiatry and Inpatient Rehab): Page Night KHAI, [phone]. 7PM-7AM ([place], [place], [place] and [facility] Rehab): Page on-call KHAI, . Jie Alexandre, STEPHANIE-RESPIRATORY CLINICIAN 12/31/23 6492 I have seen and evaluated the patient, [...] Active Problem List Diagnosis Chronic atrial fibrillation ([facility]) Cellulitis, unspecified cellulitis site Diastolic heart failure [...] 0513 12/28/23 0502 12/27/23 0505 12/26/23 0425 WBC X10E9/L 8.4 6.4 8.4 10.6 9.3 HEMOGLOBIN g/dL 12.2* 12.2* 13.6 13.5 14.0 HEMATOCRIT % 36.0* 35.8* 40.7 39.9 41.1 PLATELETS X10E9/L 159 139* 172 172 139* Results from last 7 days Lab Units 12/30/23 0843 12/30/23 0503 12/29/23 2101 12/29/23 1820 12/29/23 1156 12/29/23 0758 12/29/23 0513 12/28/23 0646 12/28/23 0502 12/27/23 0754 12/27/23 0505 12/26/23 0747 12/26/23 0425 POTASSIUM mmol/L [...] 0513 12/28/23 0502 12/27/23 0505 12/26/23 0425 INR 2.1* 2.1* 1.9* 1.6* 2.0* [...] Problem: Cellulitis Active Problems: Chronic atrial fibrillation ([facility]) Diastolic heart failure ([facility]) Essential hypertension Mixed hyperlipidemia Type 2 diabetes mellitus with obesity ([facility]) Venous ulcer of left lower extremity without varicose veins ([facility]) Venous ulcer of right lower extremity without varicose veins ([facility]) Open wound of both lower extremities Lymphedema [...] Line M-F 8a-3p Secure Chat or Page [phone] Malena Johnson PA-C 12/30/23 9106 Malnea Johnson PA-C 12/30/23 1322 Images from the original note were not included. Division of Infectious Diseases -progress Note [facility] - Academic Team 1 During Business Hours: Please use [email or web address] for communication. After Hours: Please call for [...] Past Medical History: Diagnosis Date Angina pectoris ([facility]) Arthritis Atrial fibrillation ([facility]) Chronic kidney disease kidney stones COPD (chronic obstructive pulmonary disease) ([facility]) Coronary artery disease Dental disease Diabetes mellitus type 2, controlled ([facility]) Hyperlipidemia Hypertension Migraines Myocardial infarction ([facility]) x2 Obesity Pneumonia Rash Shortness of breath Visual impairment glasses Past Surgical History: Past Surgical History: Procedure Laterality Date ABDOMINAL SURGERY complete abdominoplasty APPENDECTOMY CARDIAC CATHETERIZATION LAD stents x2 CARDIAC ELECTROPHYSIOLOGY MAPPING AND ABLATION CHOLECYSTECTOMY EXCISIONAL DEBRIDEMENT LOWER LEGS Bilateral 12/27/2023 Performed by Hardeep Kiran MD at [facility] HERNIA REPAIR KNEE ARTHROSCOPY Bilateral LITHOTRIPSY MANIPULATION SHOULDER Left 06/19/2018 Performed by Jr Kendy Renee DO at [facility] TONSILLECTOMY Medications: ampicillin-sulbactam (UNASYN) IV, 3,000 mg, [...] min Stress: No Stress Concern Present (12/23/2023) [place] [facility] - Occupational Stress Questionnaire Feeling of Stress : Only a little Social Connections: Socially Isolated (12/23/2023) Social Connection and Isolation Panel [NHANES] Frequency of Communication with Friends and Family: Three times a week Frequency of Social Gatherings with Friends and Family: Three times a week Attends Baptism Services: Never Active Member of Clubs or [...] questions. Marianna Holley PGY1 Internal Medicine Resident [facility] From 7AM-7PM: Please use [email or web address] for communication. From 7PM-7AM: Please call for our answering service. Associated attestation - Leida Porter MD - 12/31/2023 7:01 PM EST Patient was out of the room during rounds, but I discussed with Dr. Holley and I agree with the assessment and plan as above. Leida Porter MD, CMQ, [facility] Infectious Diseases Personal Pager: [phone] Images from the original note were not included. [facility] MEDICINE [facility] MD Nadege Brunner, MD Mat Davis, MD Jemima Lewis, MD Bob Ball, MD Francheska Felipe, MD Roger Loja, MD Delmy Roger, MD Jayda Almendarez, RESPIRATORY CLINICIAN Susan Ramírez, ERICKA Sidhu, RESPIRATORY CLINICIAN Meche Quiñonez, ERICKA De La Rosa, RESPIRATORY CLINICIAN Antonina Boo, RESPIRATORY CLINICIAN Arely Cadena, RESPIRATORY CLINICIAN Jie Alexandre, RESPIRATORY CLINICIAN Con Garcia, RESPIRATORY CLINICIAN Annalisa Hagan, ERICKA Monzon, ERICKA Chavis, ERICKA Cortes, ERICKA Nielson, ERICKA Callaway, ERICKA Wong, ERICKA Maher, RESPIRATORY CLINICIAN Bipin Turner, RESPIRATORY CLINICIAN Hospital Medicine Progress Note Patient: Hipolito Daniels Date of : 1965 Room: [facility]/ PCP: SYDNEY GRIFFITH DO Admission date: 12/25/2023 [...] Problem: Cellulitis Active Problems: Chronic atrial fibrillation ([facility]) Diastolic heart failure ([facility] Essential hypertension Mixed hyperlipidemia Type 2 diabetes mellitus with obesity ([facility]) Venous ulcer of left lower extremity without varicose veins ([facility]) Venous ulcer of right lower extremity without varicose veins ([facility]) Open wound of both lower extremities Lymphedema [...] TBD. Jie Alexandre APRN-ERICKA 12/30/2023 10:[address] [facility] 7[facility]-7PM (all facilities): Message rounding KHAI in [email or web address] or page through PokitDok. 7PM-7AM ([facility], [facility] Psychiatry and Inpatient Rehab): Page Night KHAI, [phone]. 7PM-7AM ([facility], [place], [place] and [facility] Rehab): Page on-call KHAI, . PATY Reyes 12/30/23 1833 Pharmacokinetic Consult - Follow Up [...] progress daily. Mini Donnelly RPH, PharmD Ext [phone] Images from the original note were not included. [facility] Cardiology - Electrophysiology PROGRESS NOTE Covering [...] Chronic atrial fibrillation ([facility]-H[facility]) Diastolic heart failure ([facility]) Essential hypertension Mixed hyperlipidemia Type 2 diabetes mellitus with obesity ([facility]) Venous ulcer of left lower extremity without varicose veins ([facility]) Venous ulcer of right lower extremity without varicose veins ([facility]) Open wound of both lower extremities Lymphedema [...] Cardiology will sign off Carla Marques MD [facility] Cardiology - Electrophysiology Report prepared via [...] continue to follow patient's clinical progress daily. EMILYJason CHÁVEZ PharmD Ext [id number] Images from the original note were not included. [facility] Eldon Green, MD Nadege Richards, MD Mat Davis, MD Jemima Lewis, MD Bob Ball, MD Francheska Felipe, MD Roger Loja, MD Delmy Roger, MD Jayda Almendarez, RESPIRATORY CLINICIAN Susan Ramírez, RESPIRATORY CLINICIAN Sushila Sidhu, RESPIRATORY CLINICIAN Meche Olamide, RESPIRATORY CLINICIAN Nilda Rj, RESPIRATORY CLINICIAN Antonina Boo, RESPIRATORY CLINICIAN Arely Cadena, RESPIRATORY CLINICIAN Jie Alexandre, RESPIRATORY CLINICIAN Con Garcia, RESPIRATORY CLINICIAN Annalisa Hagan, RESPIRATORY CLINICIAN Sushma Monzon, RESPIRATORY CLINICIAN Jocelynn Chavis, RESPIRATORY CLINICIAN Yanet Cortes, [facility] Carole Nielson, [facility] Kayce Callaway, RESPIRATORY CLINICIAN Sushma Wong, [facility] Thalia Maher, RESPIRATORY CLINICIAN Bipin Turner, [facility] Medicine Progress Note Patient: Hipolito Daniels Date of : 1965 Room: [place] [address] PCP: SYDNEY GRIFFITH DO Admission date: 12/25/2023 [...] Problem: Cellulitis Active Problems: Chronic atrial fibrillation ([facility]) Diastolic heart failure ([facility]) Essential hypertension Mixed hyperlipidemia Type 2 diabetes mellitus with obesity ([facility]) Venous ulcer of left lower extremity without varicose veins ([facility]) Venous ulcer of right lower extremity without varicose veins ([facility]) Open wound of both lower extremities Lymphedema [...] Supratherapeutic INR- resolved INR on admission to [place] 6.2 Current INR within range Pharmacy to dose warfarin DVT/VTE prophylaxis: SCD's and pharmacologic prophylaxis, warfarin, continue home dose. GI prophylaxis: add pantoprazole. PT/OT to evaluate and treat. DC planning: TBD. PATY Schreiber 12/29/2023 9:17 AM [facility] Medicine - [facility] Hospitalists 7AM-7PM (all facilities): Message rounding KHAI in [email or web address] or [employer] through [employer]Dok. 7PM-7AM ([facility], [facility] Psychiatry and Inpatient Rehab): Page Night KHAI, [phone]. 7PM-7AM ([facility], [facility] and [facility] Rehab): Page on-call KHAI, . PATY Schreiber 12/29/23 1121 Patient seen and examined Interviewed and any questions answered All labs , xrays reviewed Clinical assessment and decisions made by myself in entirety Discussed case with team Agree with above assessment and plan Electronically signed by: FRANCHESKA FELIPE MD, 12/29/2023 1:11 PM [facility] at [facility] [address] [place] [address] (P): [phone] (F): [phone] Images from the original note were not included. Division of Infectious Diseases -progress Note [facility] - Academic Team 1 During Business Hours: Please use [email or web address] for communication. After Hours: Please call for [...] Past Medical History: Diagnosis Date Angina pectoris ([facility]) Arthritis Atrial fibrillation ([facility]) Chronic kidney disease kidney stones COPD (chronic obstructive pulmonary disease) ([facility]) Coronary artery disease Dental disease Diabetes mellitus type 2, controlled ([facility]) Hyperlipidemia Hypertension Migraines Myocardial infarction ([facility]) x2 Obesity Pneumonia Rash Shortness of breath Visual impairment glasses Past Surgical History: Past Surgical History: Procedure Laterality Date ABDOMINAL SURGERY complete abdominoplasty APPENDECTOMY CARDIAC CATHETERIZATION LAD stents x2 CARDIAC ELECTROPHYSIOLOGY MAPPING AND ABLATION CHOLECYSTECTOMY HERNIA REPAIR KNEE ARTHROSCOPY Bilateral LITHOTRIPSY MANIPULATION SHOULDER Left 06/19/2018 Performed by Jr Kendy Renee DO at [facility] TONSILLECTOMY Medications: ampicillin-sulbactam (UNASYN) IV, 3,000 mg, [...] min Stress: No Stress Concern Present (12/23/2023) [place] [facility] Occupational Health - Occupational Stress Questionnaire Feeling of Stress : Only a little Social Connections: Socially Isolated (12/23/2023) Social Connection and Isolation Panel [NHANES] Frequency of Communication with Friends and Family: Three times a week Frequency of Social Gatherings with Friends and Family: Three times a week Attends Baptism Services: Never Active Member of Clubs or [...] Procedure Component Value Units Date/Time Blood culture [[id number]] Collected: 12/23/23 09 Specimen: Blood Updated: 12/28/23 1316 Specimen Notes RIGHT HAND Culture NO GROWTH 5 DAYS Blood culture [[id number]] Collected: 12/23/23 0850 Specimen: Blood Updated: 12/28/23 1316 Specimen Notes LEFT HAND Culture NO GROWTH 5 DAYS Wound culture superficial includes gram stain [[id number]] Collected: 12/23/23 0835 Specimen: Wound Swab Updated: 12/25/23901 Gram Stain Result >25 WHITE BLOOD CELLS/LPF [...] Fellow , PGY-5 From 7AM-7PM: Please use [email or web address] for communication. From 7PM-7AM: Please call for [...] the care of this patient. - THADDEUS ROGER DO 12/28/23 10:26 PM [facility] Infectious Diseases Message me via [email or web address] Pharmacokinetic Consult - Follow Up Warfarin Dosing [...] clinical progress daily. EMILY CHÁVEZ PharmD Ext [id number] Images from the original note were not included. [facility] MEDIC[facility] Eldon Green, MD Nadege Richards, MD Mat Davis, MD Jemima Lewis, MD Bob Ball, MD Francheska Felipe, MD Roger Loja, MD Delmy Roger, MD Jayda Almendarez, RESPIRATORY CLINICIAN Susan Ramírez, [facility] Sushila Sidhu, [facility] Meche Quiñonez, [facility] Nilda De La Rosa, [facility] Antonina Boo, [facility] Arely Cadena, [facility] Jie Alexandre, [facility] Con Garcia, [facility] Annalisa Hagan, RESPIRATORY CLINICIAN Sushma Monzon, [facility] Jocelynn Chavis, [facility] Yanet Cortes, [facility] Carole Nielson, [facility] Kayce Callaway, RESPIRATORY CLINICIAN Sushma Wong, [facility] Thalia Maher, RESPIRATORY CLINICIAN Bipin Turner, [facility] Medicine Progress Note Patient: Hipolito Daniels Date of : 1965 Room: [place] [address] PCP: SYDNEY GRIFFITH DO Admission date: 12/25/2023 [...] %, 10 mL/hr, Last Rate: 10 mL/hr (12/26/23 210) As Needed: acetaminophen alum-mag hydroxide-simeth dextrose dextrose [...] Problem: Cellulitis Active Problems: Chronic atrial fibrillation ([facility]) Diastolic heart failure ([facility]) Essential hypertension Mixed hyperlipidemia Type 2 diabetes mellitus with obesity ([facility]) Venous ulcer of left lower extremity without varicose veins ([facility]) Venous ulcer of right lower extremity without varicose veins ([facility]) Open wound of both lower extremities Lymphedema [...] Supratherapeutic INR- resolved INR on admission to [place] 6.2 Current INR within range Pharmacy to dose warfarin DVT/VTE prophylaxis: SCD's and pharmacologic prophylaxis, warfarin, continue home dose. GI prophylaxis: add pantoprazole. PT/OT to evaluate and treat. DC planning: INO. Sushma Wong APRN-RESPIRATORY CLINICIAN 12/28/2023 8:31 AM [facility] Medicine - [facility] Hospitalists 7AM-7PM (all facilities): Message rounding KHAI in [email or web address] or page through PokitDok. 7PM-7AM ([facility], [facility] Psychiatry and Inpatient Rehab): Page Night KHAI, [phone]. 7PM-7AM ([place] [place], [place], [place] and [facility] Rehab): Page on-call KHAI, . Sushma Wong APRN-RESPIRATORY CLINICIAN 12/28/23 1838 Patient seen and examined Interviewed and any questions answered All labs , xrays reviewed Clinical assessment and decisions made by myself in entirety Discussed case with team Agree with above assessment and plan Electronically signed by: FRANCHESKA FELIPE MD, 12/28/2023 6:49 PM [facility] [address] [place] [address] (P): [phone] (F): [phone] NUTRITION ADULT INITIAL EVALUATION NUTRITION ASSESSMENT: Reason to be seen: Database trigger for unintentional weight loss 10 lbs or more, intakes less than 50% of normal over last 2 weeks, and pressure ulcer or non-healing wounds. Patient History: Admit Diagnosis: Patient Active Problem List Diagnosis Chronic atrial fibrillation ([facility]) Cellulitis, unspecified cellulitis site Diastolic heart failure ([facility]) Essential hypertension Mixed hyperlipidemia Type 2 diabetes mellitus with obesity ([facility]) Cellulitis Venous ulcer of left lower extremity without varicose veins ([facility]) Venous ulcer of right lower extremity without varicose veins ([facility]) Open wound of both lower extremities Lymphedema Past Medical History: Past Medical History: Diagnosis Date Angina pectoris ([facility]) Arthritis Atrial fibrillation ([facility]) Chronic kidney disease kidney stones COPD (chronic obstructive pulmonary disease) ([facility]) Coronary artery disease Diabetes mellitus type 2, controlled ([facility]) Hyperlipidemia Hypertension Migraines Myocardial infarction ([facility]) x2 Obesity Pneumonia Shortness of breath Visual impairment glasses Past Surgical History: Past Surgical History: Procedure Laterality Date ABDOMINAL SURGERY complete abdominoplasty APPENDECTOMY CARDIAC CATHETERIZATION LAD stents x2 CARDIAC ELECTROPHYSIOLOGY MAPPING AND ABLATION CHOLECYSTECTOMY HERNIA REPAIR KNEE ARTHROSCOPY Bilateral LITHOTRIPSY MANIPULATION SHOULDER Left 06/19/2018 Performed by Jr Kendy Renee DO at [facility] TONSILLECTOMY Social/ Cognitive/ Economic: from home. Brief Clinical Summary: PMH significant for CKD, COPD, CAD, T2DM, HLD, HTN, cholecystectomy. Patient presented from outside hospital for lymphedema with drainage from wounds. Patient with cellulitis. Biochemical Data, Medical Tests, and Procedures: 2 OR; debridement of thigh/knee/calf. Labs: Results from [...] mouth in the evening. as directed by Sid MTJefferson (Medication Therapy Management). (Patient taking differently: Take [...] subcutaneous Nightly PATY Fortune 2 Units at 12/26/23 210 isosorbide mononitrate (IMDUR) 24 hr tablet 60 mg 60 mg oral Daily PATY Schreiber 60 mg at 12/26/23 210 magnesium oxide (MAGOX) tablet 400 mg 400 mg oral Daily PRN Francheska Felipe MD 400 mg at 12/27/23 0925 magnesium sulfate IVPB 2000 mg/50 mL in iso-osmotic water (40 mg/mL premix) 2,000 mg intravenous PRN PATY Fortune magnesium sulfate IVPB 4000 mg/100 mL in iso-osmotic water (40 mg/mL premix) 4,000 mg intravenous PRN PATY Fortune ondansetron ODT (ZOFRAN ODT) disintegrating tablet 4 mg 4 mg buccal Q6H PRN PATY Fortune oxyCODONE (ROXICODONE) immediate release tablet 5 mg 5 mg oral Q4H PRN PATY Schreiber Or oxyCODONE (ROXICODONE) immediate release tablet 10 mg 10 mg oral Q4H PRN PATY Schreiber 10 mg at 12/27/23 1007 pantoprazole (PROTONIX) EC tablet 40 mg 40 mg oral QAM AC PATY Fortune 40 mg at 12/27/23 0447 potassium chloride (K-TAB,KLOR-CON) CR tablet 20-40 mEq 20-40 mEq oral PRN PATY Fortune Or potassium chloride (KAYCIEL) 20 mEq/15 mL solution 20-40 mEq 20-40 mEq oral PRN Meche D Caygill, X RAY EQUIPMENT MECHANIC-RESPIRATORY CLINICIAN sennosides-docusate sodium (SENOKOT-S) 8.6-50 mg 1 tablet 1 tablet oral Q12H PRN Meche Quiñonez, X RAY EQUIPMENT MECHANIC-RESPIRATORY CLINICIAN sodium chloride 0.9 % flush 3 mL 3 mL intravenous PRN Meche Quiñonez, X RAY EQUIPMENT MECHANIC-RESPIRATORY CLINICIAN sodium chloride 0.9 % flush 3 mL 3 mL intravenous Q12H LUZ Meche Quiñonez, X RAY EQUIPMENT MECHANIC-RESPIRATORY CLINICIAN 3 mL at 12/26/232109 sodium chloride 0.9 % infusion 10 mL/hr intravenous Continuous PRN Meche Quiñonez, X RAY EQUIPMENT MECHANIC-RESPIRATORY CLINICIAN 10 mL/hr at 12/26/232100 10 mL/hr at 12/26/232100 sodium hypochlorite (DAKIN'S 1/4 STRENGTH) 0.125 % external solution 1 Application 1 Application topical BID Hansel Carrasco MD vancomycin (VANCOCIN) IVPB 1750 mg in 500 mL sodium chloride 0.9% (CMPD premix) 15 mg/kg intravenous Q12H Francheska Felipe MD Stopped at 12/27/23 0323 warfarin (COUMADIN) tablet 5 mg 5 mg oral Daily MecheDarcy Quiñonez APRN-RESPIRATORY CLINICIAN 5 mg at 12/26/23 1639 Nutrition Focused [...] nursing flow sheets): Last BM Date: 12/23/23 (12/27/23 0800) Edema (per nursing flow sheets): RLE Edema: +2 (12/27/23 0800) LLE Edema: +2 (12/27/23 0800) Intake/ Output Last 24 hrs: Intake/Output Summary (Last 24 hours) at 12/27/2023 1215 Last data filed at 12/26/20232016 Gross per 24 hour Intake 440 ml [...] lb 12.4 oz) Current Weight: 107.4 kg (12/27, bed scale) Admit Weight: 110.7 kg (2/, Bed Scale) Usual Body Weight: Patient did not know; see trends above. [place] Body Weight: 78.2 kg Percent [place] Body Weight: >100% Weight Changes: Weight loss since admit. Patient reported 40 lb weight loss over 1 month. Body Mass Index: Body mass index is 33.02 kg/m . BMI Category: Obese class 1 (30.00- 34.99). Comparative Standards: Estimated Energy Needs: 1539-8611 kcals daily. Method and weight used: 30-35 kcal/kg IBW (78.2 kg). Estimated Protein Needs: 117-196 grams daily. Method and weight used: 1.5-2.5 g protein/kg IBW. Estimated Fluid Needs: 8097-6901 ml daily. Method weight used: 30-35 ml/kg [...] consult for specific nutrition needs. MOE Ren, RD, LD Clinical Dietitian Direct Line Images from the original note were not included. [facility] MEDICINE [facility] Eldon Green, MD Nadege Richards, MD Mat Daivs, MD Jemima Lewis, MD Bob Ball, MD Francheska Felipe, MD Roger Loja, MD Delmy Roger, MD Jayda Almendarez, RESPIRATORY CLINICIAN Susan Ramírez, RESPIRATORY CLINICIAN Sushila Sidhu, [facility] Meche Quiñonez, [facility] Nilda De La Rosa, [facility] Antonina Baumannisraelalina, [facility] Arely Cadena, [facility] Jie Stacyantonietta, [facility] Conkelechi Vázquezpalmira, [facility] Annalisa Moyrange, [facility] Sushma Na, [facility] Jocelynn Partha, [facility] Yanet Sophia, [facility] genaro Naga, [facility] Kayce Callaway, [facility] Sushma Wong, [facility] Thalia Maher, [facility] Bipin Turner, [facility] Medicine Progress Note Patient: Hipolito Daniels Date of : 1965 Room: [place] [address] PCP: SYDNEY GRIFFITH DO Admission date: 12/25/2023 [...] L/min Intake/Output Summary (Last 24 hours) at 12/27/2023 1845 Last data filed at 12/26/20232016 Gross per [...] %, 10 mL/hr, Last Rate: 10 mL/hr (12/26/23 2101) As Needed: acetaminophen alum-mag hydroxide-simeth dextrose dextrose [...] Problem: Cellulitis Active Problems: Chronic atrial fibrillation ([facility]) Diastolic heart failure ([facility]) Essential hypertension Mixed hyperlipidemia Type 2 diabetes mellitus with obesity ([facility]) Venous ulcer of left lower extremity without varicose veins ([facility]) Venous ulcer of right lower extremity without varicose veins ([facility]) Open wound of both lower extremities Lymphedema [...] consult Cardiology for CHF management and possible EDITH to rule out vegetation Supratherapeutic INR- resolved INR on admission to [place] 6.2 Current INR within range Pharmacy to dose warfarin DVT/VTE prophylaxis: SCD's and pharmacologic prophylaxis, warfarin, continue home dose. GI prophylaxis: add pantoprazole. PT/OT to evaluate and treat. DC planning: TBD. PATY Schreiber 12/27/2023 6:45 PM [facility] - [facility] Hospitalists 7AM-7PM (all facilities): Message rounding KHAI in [email or web address] or page through [employer]. 7PM-7AM ([facility], [facility] Psychiatry and Inpatient Rehab): Page Night KHAI, [phone]. 7PM-7AM ([facility] and [facility] Rehab): Page on-call KHAI, . PATY Schreiber 12/27/23 1904 Patient seen and examined Interviewed and any questions answered All labs , xrays reviewed Clinical assessment and decisions made by myself in entirety Discussed case with team Agree with above assessment and plan Electronically signed by: FRANCHESKA FELIPE MD, 12/27/2023 7:15 PM [facility] [address] [place] [address]., [address] [place] [address] (P): [phone] (F): [phone] Pharmacokinetic Consult - Follow Up Warfarin Dosing [...] follow patient's clinical progress daily. Mini Donnelly RP, PharmD Ext [phone] Pharmacokinetic Consult - Vancomycin Dosing Hipolito Daniels [...] Procedure Component Value Units Date/Time Blood culture [[id number]] Collected: 12/23/23 0903 Specimen: Blood Updated: 12/25/23 1323 Specimen Notes RIGHT HAND Culture NO GROWTH 2 DAYS Blood culture [[id number]] Collected: 12/23/23 0850 Specimen: Blood Updated: 12/25/23 1323 Specimen Notes LEFT HAND Culture NO GROWTH 2 DAYS Wound culture superficial includes gram stain [[id number]] Collected: 12/23/23 0835 Specimen: Wound Swab Updated: [...] on the patient's clinical status. Mini Donnelly RP, PharmD Ext [phone] [facility] Department of Pharmacy Pharmacist to Physician Communication The dose of cefepime for SSTI has been changed to 1 gram every 8 hours per the [facility] approved renal dosing guidelines, based on an estimated creatinine clearance is 104.6 mL/min (by C-G formula based on SCr of 0.81 mg/dL). Thank you, Mini Donnelly RPH, PharmD Ext [phone] Pharmacokinetic Consult - Anticoagulation Dosing Hipolito Daniels [...] per protocol Patient Education (with patient/family): On TECHNICAL OPERATOR - not needed Will change dose from PMH to 5 mg daily. Will continue to follow patient's clinical progress daily. Mini Donnelly RPH, PharmD Ext [phone] documented in this encounter [employer] 01-01-2024 Consult note Formatting of th is [...] clinical progress daily. Roshan Chapa RPH Ext [phone] Associated Order(s): IP CONSULT TO CARDIOLOGY Images from the original note were not included. [facility] [address] [place] [address] CONSULT NOTE Hipolito Daniels PCP: SYDNEY GRIFFITH DO Date of Admission: 12/25/2023 Date of Consultation: 12/27/2023 9:33 PM Consult for CHf possible need for EDITH SUBJECTIVE History of Present Illness: Hipolito Daniels is a 58 y.o. male who was admitted to [facility] after being transferred from [facility] for leg wounds. The patient has a [...] weeping and went to the ER in [place] for evaluation. Patient was transferred to [facility] for further care and management under the [...] few days ago so he came to [place] ER. He reports he edema all the way up to his abdomen including his scrotum. He reports that the edema went away on its own without taking any extra diuretics and he reports taking Lasix every other day Previous Medical History: Past Medical History: Diagnosis Date Angina pectoris ([facility]) Arthritis Atrial fibrillation ([facility]) Chronic kidney disease kidney stones COPD (chronic obstructive pulmonary disease) ([facility]) Coronary artery disease Dental disease Diabetes mellitus type 2, controlled ([facility]) Hyperlipidemia Hypertension Migraines Myocardial infarction ([facility]) x2 Obesity Pneumonia Rash Shortness of breath Visual impairment glasses Previous Surgical History: Past Surgical History: Procedure Laterality Date ABDOMINAL SURGERY complete abdominoplasty APPENDECTOMY CARDIAC CATHETERIZATION LAD stents x2 CARDIAC ELECTROPHYSIOLOGY MAPPING AND ABLATION CHOLECYSTECTOMY HERNIA REPAIR KNEE ARTHROSCOPY Bilateral LITHOTRIPSY MANIPULATION SHOULDER Left 06/19/2018 Performed by Jr Kendy Renee DO at [facility] Allergies: Allergies Allergen Reactions Ciprofloxacin Hives Keflex [Cephalexin] Hives Albuterol Tachycardia Shellfish Derived Other (See Comments) Chills Magnesium Sulfate pain IV only- Patient reports it feels like someone is putting lava in my [facility] Hospital Meds: Current Facility-Administered Medications Medication Dose Route Frequency Provider Last Rate Last Admin acetaminophen (TYLENOL) tablet 650 mg 650 mg oral Q4H PRN PATY Fortune alum-mag hydroxide-simeth (MAALOX) 200-200-20 mg/5 mL suspension 30 mL 30 mL oral PCHSP PATY Fortune ampicillin-sulbactam (UNASYN) 3,000 mg in sodium chloride [...] PRN Elmer Henry MD 0.4 mg at 12/27/23 2020 HYDROmorphone (DILAUDID) injection 0.4 mg 0.4 mg intravenous Q5 Min PRN Elmer Henry MD insulin lispro (HumaLOG) injection 2-10 Units 2-10 Units subcutaneous TID with meals PATY Fortune 4 Units at 12/26/23 1639 insulin lispro (HumaLOG) injection 2-8 Units 2-8 Units subcutaneous Nightly PATY Fortune 2 Units at 12/26/23 2105 isosorbide mononitrate (IMDUR) 24 hr tablet 60 mg 60 mg oral Daily PATY Schreiber 60 mg at 12/26/23 210 lactated ringers infusion 50 mL/hr intravenous Continuous Elmer Henry MD 50 mL/hr at 12/27/23 1750 Restarted at 12/27/23 191 lidocaine PF (XYLOCAINE) 10 mg/mL (1 %) [...] QAM AC PATY Fortune 40 mg at 12/27/23 0447 potassium chloride (K-TAB,KLOR-CON) CR tablet 20-40 mEq 20-40 mEq oral PRN Meche Quiñonez APRN-ERICKA Or potassium chloride (KAYCIEL) 20 mEq/15 mL solution 20-40 mEq 20-40 mEq oral PRN Meche Quiñonez, X RAY EQUIPMENT MECHANIC-RESPIRATORY CLINICIAN sennosides-docusate sodium (SENOKOT-S) 8.6-50 mg 1 tablet 1 tablet oral Q12H PRN Meche Quiñonez APRN-RESPIRATORY CLINICIAN sodium chloride 0.9 % flush 3 mL 3 mL intravenous PRN Meche Quiñonez, X RAY EQUIPMENT MECHANIC-RESPIRATORY CLINICIAN sodium chloride 0.9 % flush 3 mL 3 mL intravenous Q12H LUZ eMche Quiñonez APRN-RESPIRATORY CLINICIAN 3 mL at 12/26/23 2110 sodium chloride 0.9 % flush 3 mL 3 mL intravenous PRN Elmer Henry MD sodium chloride 0.9 % flush 3 mL 3 mL intravenous Q12H [facility] Elmer Henry MD sodium chloride 0.9 % infusion 10 mL/hr intravenous Continuous PRN Meche Quiñonez APRN-RESPIRATORY CLINICIAN 10 mL/hr at 12/26/23 210 10 mL/hr at 12/26/23 210 sodium hypochlorite (DAKIN'S 1/4 STRENGTH) 0.125 % external solution 1 Application 1 Application topical BID Hansel Carrasco MD warfarin (COUMADIN) tablet 5 mg 5 mg oral Daily Meche Quiñonez APRN-ERICKA 5 mg at 12/26/23 1639 Home Meds: [...] mouth in the evening. as directed by Sid BELTRAN (Medication Therapy Management). Patient taking differently: [...] CHLORIDE mmol/L 111* 110* 111* CO2 mmol/L 24 18* BUN mg/dL 28* 36* 41* [...] 12/25/23 112 kg (246 lb 14.4 oz) 07/02/19 121.6 kg (268 lb) Vitals: Vitals: 12/27/23202412/27/23203912/27/23204912/27/232054 [...] hours) at 12/27/20232132 Last data filed at 12/27/20231912 Gross per 24 hour Intake 700 ml [...] PE F Mildly elevated BNP at [address] coronary artery disease No angina Prior stents LAD Chronic lymphedema Obesity BMI 33 Diabetes mellitus Hemoglobin A1c 7.3 PLAN No need for EDITH at this time blood cultures negative Chronic HFpE F - gentle diuresis Had not received yves all day will resume her heart rate controlled YOLY Pederson PATY ASENCIO This note was completed using a voice senior medical transcriptionist system. Every effort was made to ensure accuracy. However, inadvertent computerized senior medical transcriptionist errors may be present. PATY Antunez 12/27/23 3461 I have personally performed a face to [...] of Infectious Diseases - Initial Consult Note [facility] - Academic Team 1 During Business Hours: Please use [email or web address] for communication. After Hours: Please call for [...] antibiotics. Later on, patient was transferred to [facility] for now on healing wound and vascular surgery evaluation. Infectious Disease was consulted for further antibiotic management. Patient was seen examined, no distress, hemodynamically stable and afebrile. Labs at baseline. Overall sign of inflammation improving of lower extremities. Patient is tolerating IV antibiotics. Denies any fever, chills. Pain is slightly improved. Past Medical History: Past Medical History: Diagnosis Date Angina pectoris ([facility]) Arthritis Atrial fibrillation ([facility]) Chronic kidney disease kidney stones COPD (chronic obstructive pulmonary disease) ([facility]) Coronary artery disease Diabetes mellitus type 2, controlled ([facility]) Hyperlipidemia Hypertension Migraines Myocardial infarction ([facility]) x2 Obesity Pneumonia Shortness of breath Visual impairment glasses Past Surgical History: Past Surgical History: Procedure Laterality Date ABDOMINAL SURGERY complete abdominoplasty APPENDECTOMY CARDIAC CATHETERIZATION LAD stents x2 CARDIAC ELECTROPHYSIOLOGY MAPPING AND ABLATION CHOLECYSTECTOMY HERNIA REPAIR KNEE ARTHROSCOPY Bilateral LITHOTRIPSY MANIPULATION SHOULDER Left 06/19/2018 Performed by Jr Kendy Renee DO at [facility] Medications: atorvastatin, 80 mg, oral, [...] min Stress: No Stress Concern Present (12/23/2023) [place] [facility] Occupational [facility] - Occupational Stress Questionnaire Feeling of Stress : Only a little Social Connections: Socially Isolated (12/23/2023) Social Connection and Isolation Panel [NHANES] Frequency of Communication with Friends and Family: Three times a week Frequency of Social Gatherings with Friends and Family: Three times a week Attends Baptism Services: Never Active Member of Clubs or [...] Procedure Component Value Units Date/Time Blood culture [[id number]] Collected: 12/23/23 0903 Specimen: Blood Updated: 12/27/23 132 Specimen Notes RIGHT HAND Culture NO GROWTH 4 DAYS Blood culture [[id number]] Collected: 12/23/23 0850 Specimen: Blood Updated: 12/27/23 1323 Specimen Notes LEFT HAND Culture NO GROWTH 4 DAYS Wound culture superficial includes gram stain [[id number]] Collected: 12/23/23 0835 Specimen: Wound Swab Updated: [...] Fellow , PGY-5 From 7AM-7PM: Please use [email or web address] for communication. From 7PM-7AM: Please call for [...] the care of this patient. - THADDEUS ROGER DO 12/27/23 10:51 PM [facility] Infectious Diseases Message me via [employer] secure chat Associated Order(s): CONSULT WOUND CARE SERVICES [...] Past Medical History: Diagnosis Date Angina pectoris ([facility]) Arthritis Atrial fibrillation ([facility]) Chronic kidney disease kidney stones COPD (chronic obstructive pulmonary disease) ([facility]) Coronary artery disease Diabetes mellitus type 2, controlled ([facility]) Hyperlipidemia Hypertension Migraines Myocardial infarction ([facility]) x2 Obesity Pneumonia Shortness of breath Visual impairment glasses PSH: Past Surgical History: Procedure Laterality Date ABDOMINAL SURGERY complete abdominoplasty APPENDECTOMY CARDIAC CATHETERIZATION LAD stents x2 CARDIAC ELECTROPHYSIOLOGY MAPPING AND ABLATION CHOLECYSTECTOMY HERNIA REPAIR KNEE ARTHROSCOPY Bilateral LITHOTRIPSY MANIPULATION SHOULDER Left 06/19/2018 Performed by Jr Kendy Renee DO at [facility] TONSILLECTOMY Allergies: Allergies Allergen Reactions Shellfish Derived [...] mouth in the evening. as directed by Sid BELTRAN (Medication Therapy Management). (Patient taking differently: [...] min Stress: No Stress Concern Present (12/23/2023) [place] [facility] [employer]ational Health - Occupational Stress Questionnaire Feeling of Stress : Only a little Social Connections: Socially Isolated (12/23/2023) Social Connection and Isolation Panel [NHANES] Frequency of Communication with Friends and Family: Three times a week Frequency of Social Gatherings with Friends and Family: Three times a week Attends Baptism Services: Never Active Member of Clubs or [...] 0425 12/25/23 0420 12/24/23 0457 12/23/23 0903 WBC X10E9/L 9.3 11.7* 12.0* 13.2* HEMOGLOBIN g/dL 14.0 14.3 15.9 16.8 HEMATOCRIT % 41.1 43.1 46.7 50.1* PLATELETS X10E9/L 139* 164 185 241 Results from last 7 days Lab Units 12/26/23 1213 12/26/23 0747 12/26/23 0425 12/25/23 1129 12/25/23 0420 12/24/23 1110 12/24/23 0457 12/23/23 1323 12/23/23 0903 [...] last 7 days Lab Units 12/26/23 0425 12/26/23 0010 12/25/23 0420 12/24/23 1253 12/23/23 0903 INR 2.0* 2.0* 2.8* 4.5* 6.2* PROTIME sec 22.2* 23.2* 31.9* 49.2* 67.5* APTT sec -- -- -- -- 55* Pathology/Cytology Results No results found for the last 168 hours. Microbiology Results Procedure Component Value Units Date/Time Blood culture [[id number]] Collected: 12/23/23 0903 Specimen: Blood Updated: 12/25/23 1323 Specimen Notes RIGHT HAND Culture NO GROWTH 2 DAYS Blood culture [[id number]] Collected: 12/23/23 0850 Specimen: Blood Updated: 12/25/23 1323 Specimen Notes LEFT HAND Culture NO GROWTH 2 DAYS Wound culture superficial includes gram stain [[id number]] Collected: 12/23/23 0835 Specimen: Wound Swab Updated: [...] call us with any questions or concerns. PATY SMITH 12/26/23 [facility] Wound and Vascular Service Line Pager #[phone] Sat-Sat 8a-4:00p [phone] PATY Smith 12/26/23 1250 PATY Smith 12/26/23 1307 documented in this encounter [facility]23 History and physical note Images from the original note were not included. [facility]OSPITAL[facility] MD Nadege Brunner MD Kaleem Gill, MD Sneha Kommoori, MD Ruqiyya Muhammad, MD Kanchan Pillai, MD Ravi Pothireddy, MD Delmy Roger, MD Jayda Almendarez, RESPIRATORY CLINICIAN Susan Darrell, RESPIRATORY CLINICIAN Sushila Thea, RESPIRATORY CLINICIAN Meche Olamide, RESPIRATORY CLINICIAN Nilda Rj, RESPIRATORY CLINICIAN Antonina Ema, RESPIRATORY CLINICIAN Arely Surinder, RESPIRATORY CLINICIAN Jie Stacyantonietta, RESPIRATORY CLINICIAN Conkelechi Vázquezpalmira, RESPIRATORY CLINICIAN Annalisa Moyrange, RESPIRATORY CLINICIAN Sushma Na, RESPIRATORY CLINICIAN Jocelynn Partha, RESPIRATORY CLINICIAN Yanet Sophia, RESPIRATORY CLINICIAN genaro Naga, RESPIRATORY CLINICIAN Kayce Nilton, RESPIRATORY CLINICIAN Sushma Marvin, RESPIRATORY CLINICIAN Thalia Maher, RESPIRATORY CLINICIAN Bipin Turner, [facility] Medicine History & Physical Patient: Hipolito Daniels Date of : 1965 Room: [place] [address] PCP: SYDNEY GRIFFITH DO Admission date: 12/25/2023 10:08 PM Encounter date: 12/26/23 Hospital Day: 2 SUBJECTIVE Hipolito Daniels is a 58 y.o. male who presented to [facility] ED via EMS with complaint [...] was made to transfer the patient to [facility] for vascular surgery evaluation and Hyperbaric treatment. Patient was subsequently transferred to [facility] the evening of 12/25 for higher level [...] mouth in the evening. as directed by Sid BELTRAN (Medication Therapy Management). Patient taking differently: [...] a past medical history of Angina pectoris ([facility]), Arthritis, Atrial fibrillation ([facility]), Chronic kidney disease, COPD (chronic obstructive pulmonary disease) ([facility]), Coronary artery disease, Diabetes mellitus type 2, controlled ([facility]), Hyperlipidemia, Hypertension, Migraines, Myocardial infarction ([facility]), Obesity, Pneumonia, Shortness of breath, and Visual [...] knee or ankle joints on these large [id number] images. IMPRESSION: No acute bony abnormalities demonstrated. [...] Problem: Cellulitis Active Problems: Chronic atrial fibrillation ([facility]) Diastolic heart failure ([facility]) Essential hypertension Mixed hyperlipidemia Type 2 diabetes mellitus with obesity ([facility]) Venous ulcer of left lower extremity without varicose veins ([facility]) Venous ulcer of right lower extremity without varicose veins ([facility]) Lymphedema ASSESSMENT & PLAN Cellulitis Venous ulcer [...] therapy Supratherapeutic INR- INR on admission to [place] 6.2 INR currently 2.0 Pharmacy to dose warfarin Chart reviewed. Admission orders placed and home medications reconciled. DVT/VTE prophylaxis: SCD's and pharmacologic prophylaxis, warfarin, continue home dose. GI prophylaxis: add pantoprazole. PT/OT to evaluate and treat. DC planning: TBD. Sushma Wong APRN-ERICKA 12/26/2023 6:21 PM [facility] 7AM-7PM (all facilities): Message rounding KHAI in [email or web address] or page through [employer]. 7PM-7AM ([facility], [facility] Psychiatry and Inpatient Rehab): Page Night KHAI, [phone]. 7PM-7AM ([facility] and [facility] Rehab): Page on-call KHAI, . Sushma Wong APRN-ERICKA 12/26/23 1841 Patient seen and examined Interviewed [...] FRANCHESKA FELIPE MD, 12/26/2023 7:03 PM [facility] [address] [facility] [place] [address] (P): [phone] (F): [phone] documented in this encounter [facility] 12-24-2023 Miscellaneous Notes The patient called. He states he was admitted to [facility] 12/23/23. He cancelled his INR appointment on 12/26/23. His name has already been added to the admit list. Patient will call back once he is discharged to schedule another appointment. documented in this encounter [facility] 12-24-2023 Telephone encounter Note The patient called. He states he was admitted to [facility] 12/23/23. He cancelled his INR appointment on 12/26/23. His name has already been added to the admit list. Patient will call back once he is discharged to schedule another appointment. [facility] 12-16-2023 Miscellaneous Notes Pt called and requested 90-day refill of his 5 mg warfarin tablets be sent to [facility]. Pt last seen referring provider: 06/11/23 Noted. Per 12/04/23 encounter it appears that patient already requested this, but script was sent to [facility] in [place], [place]. Warfarin prescription sent to [facility] mail order pharmacy. - Laureen Geller RPH 12/16/23 9:07 AM documented in this encounter [facility] 12-16-2023 Telephone encounter Note Pt called and requested 90-day refill of his 5 mg warfarin tablets be sent to [facility]. Pt last seen referring provider: 06/11/23 [facility] 12-16-2023 Telephone encounter Note Noted. Per 12/04/23 encounter it appears that patient already requested this, but script was sent to [facility] in [place], [place]. Warfarin prescription sent to [facility] mail order pharmacy. - Laureen Geller [facility] 12/16/23 9:07 AM [facility] [employer] [facility] 12-04-2023 History of Present illness Narrative Patient called requesting a refill of his warfarin 5 mg tablets for 90 days to [facility]. 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 Update new phone and email. Noted. Refill sent to [facility] mailorder as requested. Of note, message accidentally attached to encounter but no dosing changes made at this time. Cassie Seay [facility] 12/04/23 1042 documented in this encounter [facility] [employer] [facility] 06-11-2023 Note MD Cardiology - [facility] Subjective Hipolito Daniels is a 57 y.o. year old male patient being seen for Follow-up (6 month follow up ) Patient Active Problem List Diagnosis Coronary arteriosclerosis in [place] artery Dependent edema Atrial fibrillation (CMS/HCC) Acute myocardial infarction (CMS/HCC) Diabetes mellitus (CMS/HCC) Essential hypertension Mixed hyperlipidemia Morbid obesity ([facility]) Pain in lower limb Status post percutaneous [...] every 5 (f (more content not included)... [facility] 02-08-2022 Evaluation note Encounter Date Diagnosis Assessment Notes Jan, Type 2 diabetes mellitus with hyperglycemia (ICD-10 - E11.65) 1. Controlled, a Type 2 diabetes with A1c of 6.8% 2. Blood glucose levels improved. 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 current use of insulin (ICD-10 - Z79.4) Jan, BMI 36.0-36.9,adult (ICD-10 - Z68.36) 5 pound weight loss from last visit, continue with weight loss efforts Jan, Hypoglycemia associated with type 2 diabetes mellitus (ICD-10 - E11.649) Jan, Vitamin B 12 deficiency (ICD-10 - E53.8) [employer] Other 01-17-2022 Evaluation note* Encounter Date Diagnosis Assessment Notes Treatment Notes Treatment Clinical Notes Nov, Type 2 diabetes mellitus with hyperglycemia (ICD-10 - E11.65) [employer] Other 11-18-2021 Evaluation note* Encounter Date Diagnosis Assessment Notes Treatment Notes Treatment Clinical Notes Sep, Encounter for immunization (ICD-10 - Z23) Patient presents for COVID-19 vaccination BOOSTER. Pre-screening form answers evaluated with patient. Patient denies current illness or allergic reaction to component of COVID-19 vaccine. Patient provided with current copy of EUA. [employer] Other 11-17-2021 Evaluation note* Encounter Date Diagnosis Assessment Notes Treatment Notes Treatment Clinical Notes Sep, Other Summary of Visit: (A) plate method of meal planning (B) discussed alternative food choices to increase variety (C) benefits of losing 5-10% of body weight to increase insulin sensitivity Patient set the following goals: - trial various foods discussed today [employer] Other 10-12-2021 Evaluation note* Encounter Date Diagnosis Assessment Notes Treatment Notes Treatment Clinical Notes Aug, Type 2 diabetes mellitus with hyperglycemia (ICD-10 - E11.65) [employer] Other 10-04-2021 Evaluation note* Encounter Date Diagnosis [...] Sent rx for elizabeth 2 cgm to [facility]. Sample elizabeth 2 reader/cgm; novolog u100; ozempic 0.5mg pen given today. Pt was given application for pap for charmaine- will switch lantus to levemir, send novolog, ozempic. 7. Two week f/u with special education paraeducator for cgm download review. Referral to resident services director for dsme. 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 Pt. currently using insulin injections >3 times/day with corrective factor and requires frequent self adjustment of insulin based on carbohydrate intake, physical activity blood glucose monitoring. A CGM would improve ease of access to glucose results and reduce risk of hypoglcyemia/hyperg lycemia. [place] [employer] Other Evaluation noteNo [facility] [employer] Other Evaluation note* Diagnosis Atrial fibrillation, unspecified type (CMS-HCC) [facility] Diagnosis Cellulitis- Primary Cellulitis and abscess of unspecified site Acute post-operative pain Cellulitis, unspecified cellulitis site Open wound of both lower extremities, subsequent encounter Venous ulcer of right lower extremity without varicose veins (CMS-HCC) Warfarin anticoagulation Venous ulcer of left lower [...] both lower extremities documented [facility] Diagnosis Chronic atrial fibrillation (CMS-HCC)- Primary Atrial fibrillation documented [facility] Diagnosis Chronic atrial fibrillation (CMS-HCC)- Primary Atrial fibrillation documented [facility] Diagnosis Chronic atrial fibrillation (CMS-HCC)- Primary Atrial fibrillation [facility] N[facility]ative - Reported* Type Description [...] Cardiac ablation 2013 Hospitalization History see above g4interactive Other InstructionsNot on filedocumented in this encounter [facility] filed[facility] in this [facility] [employer] SystemInstructionsNot on filedocumented in this encounter [facility] filedocument[facility] SystemReason for visit NarrativeReferral Sydney Griffith, New patient Type 2 IDDM apt with [employer]CH[employer]IC, FRAMEMAN-C, BC-ADMNort Mango Other Summary Purpose Family History No Family [...] Discharge Follow-Up Sushma Wong APRN-CNP [address] [place] [address] Referral ID Status Reason Start Date Expiration Date V isits Requested Visits Authorized [id number] Pending Review 01/07/2024 01/06/2025 1 1 Referral ID Status Reason Start Date Expiration Date V isits Requested Visits Authorized [id number] Pending Review 01/07/2024 01/06/2025 1 1 Specialty Diagnoses / Procedures Referred By Contac t Referred To Contact Diagnoses Cellulitis, unspecified cellulitis site Open wound of both lower extremities, subsequent encounter Venous ulcer of right lower extremity without varicose veins ([facility]) Procedures Follow-up with primary care provider Sushma Wong APRN-CNP [address] [place] [address] Referral ID Status Reason Start Date Expiration Date V isits Requested Visits Authorized [id number] Pending Review 01/07/2024 01/06/2025 1 1 Specialty Diagnoses / Procedures Referred By Contac t Referred To Contact Procedures Adult diet Sushma Wong APRN-RESPIRATORY CLINICIAN [address] [place] [address] Referral ID Status Reason Start Date Expiration Date V isits Requested Visits Authorized [id number] Pending Review 01/07/2024 01/06/2025 1 1 Additional Source Comments (unrecognized sect ion and content) No Status Records FoundNo Status Records FoundNo Status Records FoundNo Status Records FoundNo Status Records FoundNo Status Records Found INFORMATION SOURCE (unrecogn ized section and content) DATE CREATED AUTHOR 05/15/2018 [facility] DATE CREATED AUTHOR AUTHOR'S ORGANIZ ATION 11/27/2022 [facility] DATE CREATED AUTHOR AUTHOR'S ORGANIZ ATION 02/14/2023 [facility] DATE CREATED AUTHOR AUTHOR'S ORGANIZ ATION 01/10/2024 [facility] DATE CREATED AUTHOR AUTHOR'S ORGANIZ ATION 02/11/2024 [facility] DATE CREATED AUTHOR AUTHOR'S ORGANIZ ATION 04/10/2024 [facility] REASON FOR VISIT (unrecogniz ed section and content) Specialty Diagnoses / Procedures Referred By Marilyn garcía Referred To Contact Diagnoses Cellulitis Cellulitis with non-healing wounds Francheska Felipe MD [address] , [address] [address] Referral ID Status Reason Start Date Expiration Date Visits Re quested Visits Authorized [id number] 1 1 Care Teams (unrecognized sec tion and content) Implementation Services Analyst Relationship Specialty Start Date End Date Sydney Griffith DO [address] [place] [address] PCP - General Family Medicine 09/08/21 Implementation Services Analyst Relationship Specialty Start Date End Date Sydney Griffith DO [address] [place] [address] PCP - General Family Medicine 12/23/23 Implementation Services Analyst Relationship Specialty Start Date End Date Sydney Griffith DO [address] [place] [address] PCP - General Family Medicine 12/23/23 Implementation Services Analyst Relationship Specialty Start Date End Date Sydney Griffith DO [address] [place] [address] PCP - General Family Medicine 12/23/23 Implementation Services Analyst Relationship Specialty Start Date End Date Sydney Griffith [address] [place] [address] PCP - [facility] Medicine 12/23/23 Implementation Services Analyst Relationship Specialty Start Date End Date Sydney Griffith [address] [place] [id number] PCP - [facility] 12/23/23 Scheduled Active and Recently Administ ered [...] on Sat12/31/23 at 2100, Apply to rash. 09 (Not Given - Provider: Ilene Rangel RN - Reason: Medication not available)2099 (Not Given - Provider: Rosalio Mesa RN - Reason: Medication not available) 899 (Not Given - Provider: Rozina French RN, Instructor - Reason: Patient/family refused)2099 (Not Given - Provider: Rosaline Elizabeth RN - Reason: Patient/family refused) 09 (Due)2099 (Due) DULoxetine (CYMBALTA) DR capsule 60 mg 60 mg, oral, Daily, First dose on Sat12/29/23 at 0900, Look-alike/sound-alike medication - verify indication for use. Swallow whole-do not crush or chew. Although the platform engineer does not recommend opening the capsule to [...] Ilene Rangel RN)2117 (Given - Provider: Rosalio Mesa, ALMAZ) 0517 (Given - Provider: Rosalio Mesa RN)1339 (Given - Provider: Shannen Remy RN)2030 (Given - Provider: Rosaline Elizabeth RN) 0600 (Due)1400 (Due)2200 (Due) glyBURIDE [...] minutes before or immediately after a meal. 2199 (Not Given - Provider: Rosalio Mesa RN - Reason: Order parameters not met - Comment: 126) 2199 (Not Given - Provider: Rosaline Elizabeth RN - Reason: Patient/family refused) 2199 (Due) isosorbide mononitrate (IMDUR) 24 hr tablet 30 mg 30 mg, oral, Daily, First dose (after last modification) on Tatum 01/02/24 at 1999, Do not crush or chew. 2116 (Given - Provider: Rosalio Mesa RN) 2021 (Given - Provider: Rosaline Elizabeth, ALMAZ) 1999 (Due) metoprolol tartrate (LOPRESSOR) tablet 100 mg 100 mg, oral, 2 times daily, First dose on Sat12/28/23 at 0700, Hold for SBP below 110 or heart rate below 50 Look-alike/sound-alike medication - verify indication for use. 0843 (Given - Provider: Ilene Rangel RN)2116 (Given - Provider: Rosalio Mesa RN) 0854 (Given - Provider: Rozina French RN, Instructor)2022 (Given - Provider: Rosaline Elizabeth, ALMAZ) 0900 (Due)2100 (Due) midodrine (PROAMATINE) tablet 10 mg (CANCELED) [...] daily, First dose (after last modification) on 01/06/24 at 2200, Hold for systolic greater than 130, heart rate less than 55 Look-alike/sound-alike medication - verify indication for use. 2116 (Given - Provider: Rosalio Mesa RN) 0517 (Given - Provider: Rosalio Mesa RN)1339 (Given - Provider: Shannen Remy RN)2030 (Given - Provider: Rosaline Elizabeth RN) 0600 (Due)1400 (Due)2200 (Due) pantoprazole (PROTONIX) EC tablet 40 mg 40 mg, oral, Every morning before breakfast, First dose on Tatum 12/26/23 at 0700, Look-alike/sound-alike medication - verify indication for use. If patient is receiving enteral feeding, consider alternative PPI or continue IV pantoprazole until the delayed-release tablet can be taken orally, Indication: GERD 0542 (Given - Provider: Magaly Blanc RN) 0517 (Given - Provider: Rosalio Mesa RN) 0700 (Due) sodium chloride 0.9 % flush 3 mL 3 mL, intravenous, Every 12 hours scheduled, First dose on Sat12/25/23 at 2330 0844 (Given - Provider: Ilene Rangel RN)2120 (Given - Provider: Rosalio Mesa RN) 0900 (Not Given - Provider: Rozina French RN, Instructor - Reason: Patient/family refused)2100 (Not Given - Provider: Rosaline Elizabeth, ALMAZ - Reason: Loss of IV access) 0900 [...] Look-alike/sound-alike medication - verify indication for use. Jakub avina., Indications: dyspepsia dextrose (GLUTOSE) 40 % gel [...] Every 6 hours PRN, itching, Starting on Sat12/30/23 at 0523, Look-alike/sound-alike medication - verify indication [...] release. 0128 (See Alternative - Provider: Magaly Blanc, RN)0545 (See Alternative - Provider: Magaly Blanc, RN)0948 (See Alternative - Provider: Ilene Rangel, RN)1556 (Given - Provider: Ilene Rangel, RN - Comment: Christianmariela BARNETT sated to only give 5mg d/t BP.)2243 (See Alternative - Provider: Rosalio Mesa RN) 0912 (See Alternative - Provider: Rozina French RN, Instructor)1340 (See Alternative - Provider: Shannen Remy, ALMAZ)1812 (See Alternative - Provider: Shannen Remy, RN) 0005 (See Alternative - Provider: Rosaline Elizabeth, ALMAZ) potassium chloride (K-TAB,KLOR-CON) CR tablet 20-40 mEq(Linked [...] patency of lines, Starting on Sat12/25/23 at 2327 Linked Groups Order Group 1: oxyCODONE (ROXICODONE) [...] BE BASED ON THE PRIMARY CLINICAL RECORDS. [employer] provides no warranty or guarantee of the accuracy or completeness of information in this document.
== END 2024-04-27 16:11 | disposition home or self-care (01) ==
LOC: WC 16:10
PROVIDERS: PCP Family Medicine; Visit Provider Physician Assistant
DX: I87.311 Chronic venous hypertension (idiopathic) with ulcer of right lower extremity (principal); L97.212 Non-pressure chronic ulcer of right calf with fat layer exposed; E11.622 Type 2 diabetes mellitus with other skin ulcer; L97.321 Non-pressure chronic ulcer of left ankle limited to breakdown of skin
CPT/HCPCS: G0463

== ENCOUNTER 2024-05-25 16:03 | Outpatient (OUT) | payer MEDICARE, SELFPAY | END 2024-05-25 16:04 | disposition home or self-care (01) | LOC: WC 16:03 | PROVIDERS: PCP Family Medicine; Visit Provider Physician Assistant | DX: I87.313 Chronic venous hypertension (idiopathic) with ulcer of bilateral lower extremity (principal); L97.212 Non-pressure chronic ulcer of right calf with fat layer exposed; L97.821 Non-pressure chronic ulcer of other part of left lower leg limited to breakdown of skin | CPT/HCPCS: G0463 ==

== ENCOUNTER 2024-10-26 11:58 | Outpatient (OUT) | payer MEDICARE, SELFPAY ==
--- NOTE | 2024-10-26 12:47 | CA_ITS ---
Patient Name: HIPOLITO DANIELS MR#: [id number] : 1965 Exam Date: 10/26/2024 Ordering Doctor: DR KENDY VILLALPANDO M.D. ECHOCARDIOGRAM REPORT PROCEDURE: CA ECHO DOPPLER COMPLETE INDICATIONS: Chronic systolic congestive heart failure, Atrial fib COMPARISON: None. DESCRIPTION: COMPLETE ECHOCARDIOGRAM Real-time transthoracic echocardiography with 2D, M-mode, spectral and color flow Doppler performed. QUALITY: Technical quality was good. LEFT VENTRICLE: Normal chamber size. Moderate concentric left ventricular hypertrophy. Global left ventricular systolic function is normal. LV EF: Estimated left ventricular ejection fraction is 60-65%. DIASTOLIC: Not adequately assessed due to heart rhythm. ATRIAL SEPTUM: LEFT ATRIUM: Moderate dilatation. RIGHT ATRIUM: Moderate dilatation. RIGHT VENTRICLE: Mild dilatation. Normal right ventricular systolic function. TRICUSPID VALVE: Normal mobility and thickness. No stenosis with trivial regurgitation. No evidence of pulmonary hypertension. RVSP 21 mmHg MITRAL VALVE: Normal mobility and thickness. No evidence of mitral valve stenosis. Mitral annular calcification. Trivial mitral regurgitation. AORTIC VALVE: Normal trileaflet appearance. Normal leaflet mobility. No evidence of aortic valve stenosis. No aortic regurgitation. AORTIC ROOT: Normal diameter and appearance. PULMONIC VALVE: Normal thickness and mobility. No stenosis. No regurgitation. PERICARDIUM: No evidence of pericardial effusion. IVC: Collapses with inspirations. Normal size. PLEURA: CONCLUSION: 1. Moderate concentric ventricular hypertrophy with normal systolic function. LVEF is 60 to 65%. 2. Mildly dilated right ventricle with normal systolic function. 3. Moderate biatrial dilatation. 4. No significant valvular dysfunction. 5. Normal right-sided pressures. Adult Echocardiography Procedure Report Left Ventricle LVEDD (3.7 - 5.6 cm): 4.37 cm LVESD (2.2 - 4.0 cm): 3.37 cm LVIVS thickness (0.6 - 1.2 cm): 1.60 cm LVPW thickness (0.5 - 1.0 cm): 1.68 cm e': 0.13 m/s E - e': 6.12 LVOT Max Gradient: 2.38 mm[Hg] LVOT Area (cm2): 0.77 m/s Peak Velocity (LVOT): 0.77 m/s Mean Velocity (LVOT): 0.47 m/s LVOT Diameter 2.26 cm Left Ventricular Ejection Fraction: 60-65 % Left Atrium LA Volume Index (2D A2C): 50.61 ml/m2 Left Atrium Systolic Dimension: 4.49 cm Mitral Valve MV E to A Ratio: 158.29 Mitral Valve A-Wave Peak Velocity: 0.01 m/s Mitral Valve E-Wave Peak Velocity: 0.80 m/s Right Ventricle RV Internal Diastolic Dimension: 4.28 cm Aorta AO Root Diam: 3.75 cm Ascending Ao Diam: 3.03 cm Aortic Valve AoV Area (Peak Rory): 3.04 cm2, 3.04 cm2 AoV Area (VTI): 2.85 cm2, 2.85 cm2 Peak Velocity(Antegrade Flow): 1.02 m/s Peak Gradient(Antegrade Flow): 4.13 mm[Hg] Mean Velocity(Antegrade Flow): 0.75 m/s Mean Gradient(Antegrade Flow): 2.49 mm[Hg] Velocity Time Integral: 20.45 cm Tricuspid Valve Peak Velocity (Regurgitant Flow): 2.11 m/s, 2.06 m/s Pulmonic Valve Mean Gradient: 1.79 mm[Hg], 1.20 mm[Hg] Mean Velocity: 0.63 m/s, 0.50 m/s Peak Velocity: 0.87 m/s Peak Gradient: 3.25 mm[Hg], 2.80 mm[Hg] Right Atrium Right Atrium Systolic Pressure: 92.40 ml, 92.40 ml Dictated by: Kendy Villalpando M.D. on 10/26/2024 at 21:05 Approved by: Kenyd Villalpando M.D. on 10/26/2024 at 21:07
== END 2024-10-26 11:59 | disposition home or self-care (01) ==
LOC: CARD 12:01
PROVIDERS: Visit Provider Internal Medicine Interventional Cardiology
DX: I48.21 Permanent atrial fibrillation (principal)
CPT/HCPCS: 93306